=== PATIENT | female | born 1945 | race Caucasian/White ===

== ENCOUNTER 2024-11-27 05:15 | Outpatient (REF) | payer MEDICARE, SELFPAY ==
[2024-11-27 05:21] LABS: MANUAL DIFF FLAG NO
--- OUTSIDE RECORDS SUMMARY | 2024-11-27 05:21 | XMS_ITS ---
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 Name Role Phone [facility] Unavailable [phone] Christofer Torres MD Primary Care Provider [phone] Plan of Treatment Future Appointments Date Time Location Provi petr Post Op Visit/Follow Up 12/01/2024 9:40AM [facility] Sami Coon MD Last Documented On 5 7:59AM ; [facility] Assessments Includes: Assessments for all patient encounters No Assessments Recorded Medical Equipment - Implanted Devices Includes: Current and historical Devices No Medical Equipment Recorded Medications Administered Includes: Administered Medications in patient's chart No Administered Medications Recorded Results Includes: Results from 11/27/2023 through 11/27/2024 No Results Recorded For Specified Dates History of Present Illness History of Present Illness not supported for this document type No History of Present Illness Recorded Social History No Social History Recorded - Smoking Status Unknown Procedures and Surgical History Includes: Procedures from 11/27/2023 through 11/27/2024 Procedures Code Diagnosis Performing Provider Service Location Service Date Treat Thigh Fracture (Left) 15466 Fracture of unsp part of neck of left femur, init Smai Coon MD [facility] - Inpatient 11/17/2024 Last Documented On 5 12:44PM ; [facility] Medical History Includes: Medical History in patient's chart No Medical History Recorded Family History Includes: Family History in patient's chart No Family History Recorded Review of Systems Review of Systems not supported for this document type No Review of Systems Recorded Mental Status No Mental Status Recorded Functional Status No Functional Status Recorded Physical Exam Physical Exam not supported for this document type No Physical Exam Recorded Insurance Includes: Active Insurance Policies Plan Name Member ID Group # Subscriber Relationship Effect niall Dates 1 - [facility] [id number] Isabela Rios Self Clinical Notes Includes: Signed Clinical Notes starting from 10/08/2022 No Clinical Notes Recorded
--- OUTSIDE RECORDS SUMMARY | 2024-11-27 05:21 | XMS_ITS | Clinical Summary ---
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 Active multivitamin (MULTIPLE VITAMINS ORAL) Take by mouth. Active citalopram (CeleXA) 20 mg tablet Please take 1.5 tablet daily 135 tablet 1 4 Active acetaminophen (TYLENOL) 500 mg tablet Take 2 tablets (1,000 mg total) by mouth every 8 (eight) hours for 10 days. 5 12/04/19 25 Active levothyroxine (SYNTHROID, LEVOTHROID) 75 mcg tablet Take 1 tablet (75 mcg total) by mouth 1 (one) time each day. 5 Active melatonin 3 mg tablet Take 1 tablet (3 mg total) by mouth at bedtime. 5 Active senna-docusate (PERICOLACE) 8.6-50 mg per tablet Take 2 tablets by mouth at bedtime. 5 12/24/19 25 Active heparin sodium,porcine (heparin, UFH,) 5,000 unit/mL injectionIndication s:Prophylaxis of Venous Thromboembolism Inject 1 mL (5,000 Units total) under the skin every 12 (twelve) hours. 5 Active amLODIPine (NORVASC) 2.5 mg tablet TAKE 1 TABLET BY MOUTH DAILY 100 tablet 1 5 Active levothyroxine (SYNTHROID, LEVOTHROID) 50 mcg tablet TAKE 1 TABLET BY MOUTH DAILY 100 tablet 2 4 11/24/19 25 Discontinued diclofenac (VOLTAREN) 1 % topical gel Apply 1 g topically 3 (three) times a day for 10 days. 60 g 5 11/26/19 25 Discontinued(St op Taking at Discharge) amLODIPine (NORVASC) 2.5 mg tablet Take 1 tablet (2.5 mg total) by mouth 1 (one) time each day. 5 11/26/19 25 Discontinued oxyCODONE (ROXICODONE) 5 mg immediate release tablet Take 1 tablet (5 mg total) by mouth every 4 (four) hours if needed (moderate pain or when therapies for mild pain were not effective) for up to 1 day. Max Daily Amount: 30 mg 6 tablet 5 11/25/19 Active Problems Problem Noted Date Diagnosed Date Closed fracture of left hip 11/14/2024 Acute subdural hematoma 11/14/2024 Osteoporosis 10/11/2023 Hyperlipidemia 09/16/2017 Depression 07/06/2017 Osteopenia 07/06/2017 Anxiety 06/11/2017 HTN (hypertension) 06/11/2017 Hypothyroidism 06/11/2017 Encounters Date Type Department Care Team Description 11/24/2024 Telephone Neurosurgery [address] [place] [phone] Mariah Lucio [place] 11/17/2024 1:00 PM EST - 11/17/2024 3:[address] [facility] [address] [place] [phone] Sami Coon MD HEMIARTHROPLASTY LEFT HIP, CEMENTED, POSTERIOR APPROACH [[id number] (CPT??)] 11/17/2024 12:18 PM EST Anesthesia Event [facility] [address] [place] [phone] Dequan Kelsey DO Walsh, Michael, DO 11/14/2024 9:22 AM EST - 11/26/2024 7:07 PM EST Hospital Encounter [facility] [address] [place] [phone] Román Guzman MD Flores, Carlos M, MD Kim, Tae Hyong, DO Zipagan, James T, MD Japaridze, Anna, MD Bell, Alistair A, MD Subdural hematoma (CMS/HCC) (Primary Dx); Closed fracture of left hip, initial encounter (CMS/HCC); Syncope, unspecified syncope type; Hypoxia; Hip fracture requiring operative repair, left, closed, initial encounter (CMS/HCC) Discharge Disposition: [facility]dc Facility 11/10/2024 2:00 PM EST Office Visit Walk-In Clinic [facility] [address] [place] [phone] Edgar Esqueda PA Fall, initial encounter (Primary Dx) 09/03/2024 9:30 AM EST Office Visit [facility] [address] [place] [phone] Garcia Doran MD Primary hypertension (Primary Dx); Mixed hyperlipidemia; Acquired hypothyroidism; Major depressive disorder with single episode, in full remission (CMS/HCC); Anxiety; Osteopenia, unspecified location from Last 3 Months Immunizations Name Administration Dates Next Due Influenza Quadravalent, MDCK , 0.5ml, preservative free (Flucelvax) 6mo and older 11/11/2019,11/08/2018 Influenza Quadravalent, MDCK , 0.5ml, with preservative (Flucelvax) 6mo and older 09/12/2017 Influenza trivalent, 0.5mL ( Fluzone High-dose) 65yo and older 07/11/2023,08/05/2020 Influenza trivalent, with pr eservative (Fluzone; Afluria) 6mo and older 08/28/2016,09/04/2013,07/10/2012,10/03 Influenza, Unspecified 10/18/2021 Moderna SARS-CoV-2 COVID-19, mRNA, LNP-S, preservative free 11/22/2022,08/31/2022,09/16/2021,02/27 Pneumococcal conjugate 13 va lent (Prevnar 13, PCV13) 2mo and older 11/15/2020 Pneumococcal conjugate 20 va lent (Prevnar 20, PCV 20) 2mo and older 08/01/2023 Pneumococcal polysaccharide 23 valent (Pneumovax 23) 2yo and older 10/03/2011 Td Tetanus diptheria (Tdvax) 7yo and older 08/01/2023 Tdap Tetanus diptheria acell ular pertussis (Boostrix; Adacel) 7yo and older 02/05/2013 Surgical History Surgery Date Site/Laterality Comments WISDOM TOOTH EXTRACTION PROCEDURE: HISTORICAL WISDOM TEETH EXTRACTION Medical History Medical History Date Comments Hypothyroidism 06/11/2017 DX:Hypothyroidis m HTN (hypertension) 06/11/2017 DX:HTN (hyper tension) Anxiety 06/11/2017 DX:Anxiety Depression 07/06/2017 DX:Depression Osteopenia 07/06/2017 DX:Osteopenia HTN (hypertension) DX:HTN (hyper tension) HTN (hypertension) DX:HTN (hyper tension) Hypothyroidism DX:Hypothyroidis m Family History Medical History Relation Name Comments No Known Problems Aunt No Known Problems Brother Lymphoma Daughter 1 brianna No Known Problems Daughter 2 Hypertension Father No Known Problems Maternal Grandfather No Known Problems Maternal Grandmother Lung cancer Mother No Known Problems Other No Known Problems Paternal Grandfather No Known Problems Paternal Grandmother No Known Problems Sister No Known Problems Uncle Blindness Neg Hx Breast cancer Neg Hx Cataracts Neg Hx Glaucoma Neg Hx Macular degeneration Neg Hx Strabismus Neg Hx Relation Name Status Comments Aunt Brother Daughter 1 Alive Daughter 2 Alive Father Maternal Grandfather Maternal Grandmother Mother Other Paternal Grandfather Paternal Grandmother Sister Alive Uncle Social History Tobacco Use Types Packs/Day Years Used Date Smoking Tobacco: Former Cigarettes Smokeless Tobacco: Never Tobacco Cessation:Counseling Given: Not Answered Alcohol Use Standard Drinks/Week Comments Yes 5 (1 standard drink = 0.6 oz pur e alcohol) Housing Instability Answer Date Recorde d Are you worried that in the next 2 months you may not have stable housing? Unable to respond 11/14/2024 Food Access & Nutrition Answer Date Rec orded Do you have access to a vari ety of food including fruits and vegetables? Unable to respond 11/14/2024 Health Literacy Answer Date Recorded How often do you need to hav e someone help you when you read instructions, pamphlets, or other written material from your doctor or pharmacy? Unable to respond 11/14/2024 Caregiver: How often do you need to have someone help you when you read instructions, pamphlets, or other written material from your doctor or pharmacy? Not on file 025 Financial Risk Answer Date Recorded How hard is it for you to pa y for the very basics like food, housing, medical care, and air conditioning / heating? Unable to respond 11/14/2024 Transportation Answer Date Recorded Has the lack of transportati on kept you from meetings, work, or from getting things needed for daily living? Unable to respond 11/14/2024 Has the lack of transportati on kept you from medical appointments or from getting medications? Unable to respond 11/14/2024 Social Isolation Answer Date Recorded How often do you feel lonely or isolated from those around you? Unable to respond 11/14/2024 Food Risk Answer Date Recorded Within the past 12 months we worried whether our food would run out before we got money to buy more. Unable to respond 025 Within the past 12 months th e food we bought just didn't last and we didn't have money to get more. Unable to respond 10/29 Dependent Care Answer Date Recorded Do you need help finding or paying for care for your loved ones. For example, child welfare counselor or elderly care for an older adult? Unable to respond 11/14/2024 Education Answer Date Recorded Do you think completing more education or training, like finishing a GED, going to college, or learning a trade, would be helpful for you? Unable to respond 11/14/2024 Employment and Income Answer Date Recor ded During the last four weeks, have you been actively looking for work? Unable to respond 11/14/2024 Living Situation Answer Date Recorded What is your living situation? 0 11/14/2024 Interpersonal Safety Answer Date Record ed Physical Abuse 11/14/2024 Verbal Abuse 11/14/2024 Sex and Gender Information Value Date Recorded Sex Assigned at Not on file Gender Identity Not on file Sexual Orientation Not on file Job Start Date Occupation Industry Not on file Not on file Not on file Obstetrics History Last Filed Vital Signs Vital Sign Reading Time Taken Comments Blood Pressure 128/65 11/26/2024 2:09 PM EST Pulse 76 11/26/2024 2:09 PM EST Temperature 36.7 ??C (98.1 ??F) 11/26/2024 2:09 PM ES T Respiratory Rate 18 11/26/2024 2:09 PM EST Oxygen Saturation 98% 11/26/2024 2:09 PM EST Inhaled Oxygen Concentration - - Weight 65.8 kg (144 lb 15.9 oz) 025 10:10 AM EST Height 165.1 cm (5' 5 ) 11/18/2024 10:1 0 AM EST Body Mass Index 24.13 11/18/2024 10:10 AM EST Plan of Treatment Upcoming Encounters Date Type Department Care Team ([facility] st Contact Info) Description 12/05/2024 10:45 AM EST Appointment [facility] CT Scan [address] [place] [phone] 12/05/2024 11:15 AM EST Office Visit Neurosurgery [facility] [address] [place] [phone] Ashley Davis PA [address], [address] [place] [address] 03/06/2025 11:30 AM EDT Office Visit [facility]ary [facility] [address] [place] [address] Garcia Doran MD [address] [place] [address] Health Maintenance Due Date Last Done Comments Zoster Vaccines (1 of 2) 1997 RSV Immunization Patients 60+ Years Old (1 - 1-dose 75+ series) 2022 Medicare Annual Wellness Visit 10/25/2024 10/25/2023 Depression Screening 08/31/2025 08/31/2024, 10/25/20 23 Colorectal Cancer Screening: FIT-DNA (Cologuard) 11/07/2025 11/07/2022 Social Influencers of Health Screening 11/14/2025 11/14/2024 Falls Risk Assessment 11/26/2025 11/26/2024, 024 Hypertension/CHF/CAD Annual BMP Blood Test 11/26/2025 11/26/2024, 11/25/2024, 11/24/2024, Additional history exists Cholesterol Screening (Lipid Panel) 09/03/2029 09/03/2024, 02/28/2024, 02/28/2024 DTaP,Tdap,and Td Vaccines (3 - Td or Tdap) 08/01/2033 08/01/2023, 02/05/2013 Osteoporosis Screening (Bone Density Screening) 10/04/2033 10/04/2023 Hepatitis C Screening Completed 04/22/2018 Breast Cancer Screening Discontinued 04/10/20, 04/04/2022, 03/31/2021 Pneumococcal Vaccine: 65+ Years Completed 08/01/2023, 11/15/2020, 10/03/2011 COVID-19 Vaccine Completed 08/07/2024, , 11/22/2022, Additional history exists Influenza Vaccine Completed 08/07/2024, , 10/13/2022, Additional history exists HIB Vaccines Aged Out No longer eligi ble based on patient's age to complete this topic HPV Vaccines Aged Out No longer eligi ble based on patient's age to complete this topic Hepatitis A Vaccines Aged Out No long er eligible based on patient's age to complete this topic Hepatitis B Vaccines Aged Out No long er eligible based on patient's age to complete this topic IPV Vaccines Aged Out No longer eligi ble based on patient's age to complete this topic MMR Vaccines Aged Out No longer eligi ble based on patient's age to complete this topic Meningococcal ACWY Vaccine Aged Out N o longer eligible based on patient's age to complete this topic RSV Immunization Patients Under 20 months Aged Out No longer eligible based on patient's age to complete this topic Varicella Vaccines Aged Out No longer eligible based on patient's age to complete this topic Medical Devices Implanted Type Area Ehs Teacher Device Identifier Shelf Expiration Date Model / Serial / Lot Kit Prep Total Hip Bone Imp - Sna - [id number] Implanted:Qty: 1 on 11/17/2024 by Sami Coon MD at [facility] Bone Cement Left: Hip [employer] 06/24/2034 [id number] / NA / [id number] Cement Bone Surg Simplex Radiopq - Sna - [id number] Implanted:Qty: 1 on 11/17/2024 by Sami Coon MD at [facility] Bone Cement Left: Hip [employer] 12/26/2026 6191-1- 0 / NA / [id number] Cement Bone Surg Simplex Radiopq - Sna - [id number] Implanted:Qty: 1 on 11/17/2024 by Sami Coon MD at [facility] Bone Cement Left: Hip [employer] 12/26/2026 6191-1- 0 / NA / [id number] Hip Stem Fem C-Cmnt 132d 6x158 - Sna - [id number] Implanted:Qty: 1 on 11/17/2024 by Sami Coon MD at [facility] Joints Hip Left: Hip [employer] [id number] 09/30/2028 2516-2612 D / NA / [id number] Hip Spacr Distl Univ 9mm - Sna - [id number] Implanted:Qty: 1 on 11/17/2024 by Sami Coon MD at [facility] Joints Hip Left: Hip [employer] [id number] 07/07/2029 6958-0573 / NA / [id number] Hip Head Bipolar Uhr 60s04xo - Sna - [id number] Implanted:Qty: 1 on 11/17/2024 by Sami Coon MD at [facility] Joints Hip Left: Hip [employer] [id number] 03/11/2028 UH1-49-26 / NA / [id number] Hip Head Cocr L Fit 26mm/-3 - Sna - [id number] Implanted:Qty: 1 on 11/17/2024 by Sami Coon MD at [facility] Joints Hip Left: Hip [employer] [id number] 01/10/2028 6260-9-02 6 / NA / [id number] Procedures Procedure Name Priority Date/Time Associated Diagnosis Comments COMPLETE BLOOD COUNT Routine 11/26/2024 5:49 AM EST BASIC METABOLIC PANEL Routine 11/26/2024 5:49 AM EST COMPLETE BLOOD COUNT Routine 11/25/2024 6:59 AM EST BASIC METABOLIC PANEL Routine 11/25/2024 6:59 AM EST COMPLETE BLOOD COUNT Routine 11/24/2024 6:24 AM EST BASIC METABOLIC PANEL Routine 11/24/2024 6:24 AM EST COMPLETE BLOOD COUNT Routine 11/23/2024 6:25 AM EST BASIC METABOLIC PANEL Routine 11/23/2024 6:25 AM EST COMPLETE BLOOD COUNT Routine 11/22/2024 6:37 AM EST BASIC METABOLIC PANEL Routine 11/22/2024 6:[address] HEAD WO CONTRAST STAT 11/21/2024 8 :31 AM EST COMPLETE BLOOD COUNT Routine 11/21/2024 5:41 AM EST BASIC METABOLIC PANEL Routine 11/21/2024 5:41 AM EST COMPLETE BLOOD COUNT Routine 11/20/2024 6:09 AM EST BASIC METABOLIC PANEL Routine 11/20/2024 6:09 AM EST COMPLETE BLOOD COUNT Routine 11/19/2024 6:01 AM EST BASIC METABOLIC PANEL Routine 11/19/2024 6:01 AM EST MR BRAIN WO CONTRAST Routine 11/18/2024 7:[address] HEAD WO CONTRAST STAT 11/18/2024 2 :24 PM EST TRANSTHORACIC ECHOCARDIOGRAM (TTE) COMPLETE Routine 11/18/2024 10:49 AM EST Syncope, unspecified syncope type COMPLETE BLOOD COUNT Routine 11/18/2024 5:44 AM EST BASIC METABOLIC PANEL Routine 11/18/2024 5:44 AM EST XR PELVIS 1-2 VIEWS Routine 11/17/2024 4 :41 PM EST OXYGEN THERAPY, ADULT Routine 11/17/2024 2:52 PM EST XR HIP 1 VIEW LEFT Routine 11/17/2024 1: 34 PM EST TISSUE EXAM Routine 11/17/2024 1:17 PM EST Hip fracture requiring operative repair, left, closed, initial encounter ([facility]) TH AN ENDOTRACHEAL(NO CHARGE) Routine 11/17/2024 12:46 PM EST WA HEMIARTHROPLASTY HIP PARTIAL 11/17/2024 12:14 PM EST Hip fracture requiring operative repair, left, closed, initial encounter ([facility]) Case Notes c arm, implants, lateral position CBC WITH AUTO DIFFERENTIAL Routine 11/17/2024 6:43 AM EST BASIC METABOLIC PANEL Routine 11/17/2024 6:43 AM EST CBC AND DIFFERENTIAL Routine 11/17/2024 6:[address] ANGIO CHEST WO AND/OR W CONTRAST STAT 11/16/2024 10:13 AM EST Hypoxia RESPIRATORY VIRUS PANEL MOLECULAR STUDY Routine 11/16/2024 5:44 AM EST ARTERIAL BLOOD GAS STAT 11/16/2024 5: 42 AM EST XR CHEST 1 VIEW STAT 11/16/2024 4:[address] HEAD WO CONTRAST Routine 11/15/2024 8 :03 AM EST VITAMIN B12 Add-On 11/15/2024 6:27 AM EST CBC WITH AUTO DIFFERENTIAL Routine 11/15/2024 6:27 AM EST CBC AND DIFFERENTIAL Routine 11/15/2024 6:27 AM EST MAGNESIUM Routine 11/15/2024 6:27 AM EST BASIC METABOLIC PANEL Routine 11/15/2024 6:27 AM EST ACTIVATED PARTIAL THROMBOPLASTIN TIME Routine 11/14/2024 8:37 PM EST PROTHROMBIN TIME WITH INR Routine 11/14/2024 8:[address] HEAD WO CONTRAST STAT 11/14/2024 2 :27 PM EST ESTRADA URINE CULTURE TUBE STAT 11/14/2024 1:58 PM EST URINALYSIS WITH REFLEX MICROSCOPIC AND CULTURE STAT 11/14/2024 1:58 PM EST URINALYSIS WITH REFLEX MICROSCOPIC AND CULTURE STAT 11/14/2024 1:58 PM EST CULTURE URINE STAT 11/14/2024 1:[address] LOWER EXTREMITY WO CONTRAST LEFT STAT 11/14/2024 12:18 PM EST TROPONIN I HIGH SENSITIVITY STAT 11/14/2024 11:25 AM EST XR CHEST 1 VIEW STAT 11/14/2024 11:03 AM EST XR HIP 2-3 VIEWS LEFT STAT 11/14/2024 11:[address] HEAD WO CONTRAST STAT 11/14/2024 10:23 AM EST THYROID STIMULATING HORMONE Add-On 11/14/2024 9:58 AM EST CBC WITH AUTO DIFFERENTIAL STAT 11/14/2024 9:58 AM EST COMPREHENSIVE METABOLIC PANEL STAT 11/14/2024 9:58 AM EST TROPONIN I HIGH SENSITIVITY STAT 11/14/2024 9:58 AM EST CREATINE KINASE STAT 11/14/2024 9:58 AM EST CBC AND DIFFERENTIAL STAT 11/14/2024 9:58 AM EST ECG 12-LEAD Routine 11/14/2024 9:41 AM EST WA CRITICAL CARE EACH ADDITIONAL 30 MINUTES Routine 11/14/2024 9:21 AM EST WA CRITICAL CARE EACH ADDITIONAL 30 MINUTES Routine 11/14/2024 9:21 AM EST WA CRITICAL CARE EACH ADDITIONAL 30 MINUTES Routine 11/14/2024 9:21 AM EST TRIIODOTHYRONINE FREE Routine 09/03/2024 10:08 AM EST Acquired hypothyroidism FREE THYROXINE WITH REFLEX TO FREE TRIIODOTHYRONINE Routine 09/03/2024 10:08 AM EST Acquired hypothyroidism LIPID PANEL WITH REFLEX TO DIRECT LDL Routine 09/03/2024 10:08 AM EST Mixed hyperlipidemia COMPREHENSIVE METABOLIC PANEL Routine 09/03/2024 10:08 AM EST Primary hypertension THYROID STIMULATING HORMONE WITH REFLEX TO FREE T4 AND FREE T3 Routine 09/03/2024 10:08 AM EST Acquired hypothyroidism HM FALLS RISK ASSESSMENT Routine 02/28/2024 DEPRESSION SCREENING Routine 10/25/2023 DXA BONE DENSITY STUDY 1+ SITS AXIAL SKEL Routine 10/04/2023 4:00 PM EST Encounter for screening for osteoporosis SCREENING MAMMOGRAPHY BI 2-VIEW BREAST INC CAD Routine 04/10/2023 10:31 AM EDT Encounter for screening mammogram for malignant neoplasm of breast FIT-DNA Routine 11/07/2022 HEPATITIS C SCREENING Routine 04/22/2018 from Last 3 Months or Most Recently Relevant to Health Maintenance Results * (ABNORMAL) Complete blood count (11/26/2024 5:49 AM EST) Only the most recent of9 resultswithin the time period is included. WBC 8.6 4.8 - 10.8 K/mcL LAB HEMETOLOGY METHOD 11/26/2024 6:52 AM [facility] RBC 2.50(L) 3.80 - 4.80 M/mcL LAB HEMETOLOGY METHOD 11/26/2024 6:52 AM [facility] Hemoglobin 7.8(L) 11.5 - 16.0 g/dL LAB HEMETOLOGY METHOD 11/26/2024 6:52 AM [facility] Hematocrit 25.0(L) 35.0 - 47.0 % LAB HEMETOLOGY METHOD 11/26/2024 6:52 AM [facility] MCV 98.8(H) 79.0 - 98.0 FL LAB HEMETOLOGY METHOD 11/26/2024 6:52 AM [facility] MCH 30.8 27.0 - 32.0 pcg LAB HEMETOLOGY METHOD 11/26/2024 6:52 AM [facility] MCHC 31.2(L) 32.0 - 37.0 g/dL LAB HEMETOLOGY METHOD 11/26/2024 6:52 AM EST [facility] RDW 16.2(H) 11.0 - 15.0 % LAB HEMETOLOGY METHOD 11/26/2024 6:52 AM [facility] Platelets 478(H) 130 - 400 K/mcL LAB HEMETOLOGY METHOD 11/26/2024 6:52 AM EST [facility] MPV 9.2 7.0 - 11.0 FL LAB HEMETOLOGY METHOD 11/26/2024 6:52 AM EST [facility] NRBC 0.0 <1.0 % LAB HEMETOLOGY METHOD 11/26/2024 6:52 AM [facility] NRBC Absolute 0.00 <0.10 K/mcL LAB HEMETOLOGY METHOD 11/26/2024 6:52 AM [facility] Blood Venous blood specimen / Unknown Venipuncture / Unknown 11/26/2024 5:49 AM EST 11/26/2024 6:33 AM EST Jaz DANIELS LAB BLOOD ORDERABLES [facility] [address] [place] [address], * Basic metabolic panel (11/26/2024 5:49 AM EST) Only the most recent of11 resultswithin the time period is included. Sodium 138 133 - 145 mmol/L LAB CHEMISTRY METHOD 11/26/2024 7:10 AM EST [facility] Potassium 4.5 3.5 - 5.5 mmol/L LAB CHEMISTRY METHOD 11/26/2024 7:10 AM [facility] Chloride 105 96 - 110 mmol/L LAB CHEMISTRY METHOD 11/26/2024 7:10 AM EST [facility] CO2 29 21 - 32 mmol/L LAB CHEMISTRY METHOD 11/26/2024 7:10 AM [facility] Anion Gap 4 3 - 11 LAB CHEMISTRY METHOD 11/26/2024 7:10 AM [facility] Glucose 86 70 - 100 mg/dL LAB CHEMISTRY METHOD 11/26/2024 7:10 AM [facility] BUN 15 5 - 25 mg/dL LAB CHEMISTRY METHOD 11/26/2024 7:10 AM [facility] Creatinine 0.72 0.50 - 1.10 mg/dL LAB CHEMISTRY METHOD 11/26/2024 7:10 AM [facility] eGFR 86 >=60 mL/min/1. 73m2 LAB CHEMISTRY METHOD 11/26/2024 7:10 AM [facility] Comment:Calculation based on the??Chronic Kidney Disease Epidemiology Collaboration (CKD-EPI) equation refit??without adjustment for race. BUN/Creatinine Ratio 20.8 LAB CHEMISTRY METHOD 11/26/2024 7:10 AM [facility] Calcium 8.7 8.5 - 10.5 mg/dL LAB CHEMISTRY METHOD 11/26/2024 7:10 AM [facility] Blood Venous blood specimen / Unknown Venipuncture / Unknown 11/26/2024 5:49 AM EST 11/26/2024 6:33 AM EST Jaz DANIELS LAB BLOOD ORDERABLES [facility] [address] [place] [address], * CT Head wo Contrast (11/21/2024 8:31 AM EST) Only the most recent of5 resultswithin the time period is included. Anatomical Region Laterality Modality Head and Neck Computed Tomogra phy 11/21/2024 8:43 AM EST Impressions 11/21/2024 8:46 AM EST Stable right cerebral convexity subdural hematoma with unchanged mass effect. ??No new bleeding or progressive mass effect. -------- FINAL REPORT -------- Dictated By: JHONNY BARRERA Dictated Date: 11/21/2024 08:43 ET Assigned Physician: JHONNY BARRERA Reviewed and Electronically Signed By: JHONNY BARRERA Signed Date: 11/21/2024 08:46 ET Workstation ID: [id number] Transcribed By: Self Edit Transcribed Date: 11/21/2024 08:43 ET Narrative 11/21/2024 8:46 AM EST PROCEDURE: HEAD CT INDICATION: Subdural hemorrhage TECHNIQUE: CT of the head without intravenous contrast. Multiplanar reformats. The examination was performed utilizing dose reduction techniques. Total DLP 901 COMPARISON: ??11/18/2024 FINDINGS: ?? No change in mixed density right cerebral convexity subdural collection measuring up to 10 mm in maximal coronal dimension. ??Local mass effect upon the right cerebrum is unchanged. ??Slight right to left midline shift is unchanged. ??Small subdural blood layering along the falx is similar compared to prior. ??No new hemorrhage, territorial infarction, or progressive mass effect. Brain parenchyma is unchanged Ventricles are stable in size. ??No hydrocephalus. Extracranial structures are unchanged. Procedure Note Jhonny Barrera MD - 11/21/2024 PROCEDURE: HEAD CT INDICATION: Subdural hemorrhage TECHNIQUE: CT of the head without intravenous contrast. Multiplanarreformats. The examination was performed utilizing dose reductiontechniques. Total DLP 901 COMPARISON: 11/18/2024 FINDINGS: No change in mixed density right cerebral convexity subdural collectionmeasuring up to 10 mm in maximal coronal dimension. Local mass effectupon the right cerebrum is unchanged. Slight right to left midline shiftis unchanged. Small subdural blood layering along the falx is similarcompared to prior. No new hemorrhage, territorial infarction, orprogressive mass effect. Brain parenchyma is unchanged Ventricles are stable in size. No hydrocephalus. Extracranial structures are unchanged. IMPRESSION: Stable right cerebral convexity subdural hematoma with unchanged masseffect. No new bleeding or progressive mass effect. -------- FINAL REPORT -------- Dictated By: JHONNY BARRERA Dictated Date: 11/21/2024 08:43 ET Assigned Physician: JHONNY BARRERA Reviewed and Electronically Signed By: JHONNY BARRERA Signed Date: 11/21/2024 08:46 ET Workstation ID: [id number] Transcribed By: Self Edit Transcribed Date: 11/21/2024 08:43 ET Janey DANIELS IMG CT PROCEDURES * MR Brain wo Contrast (11/18/2024 7:01 PM EST) Anatomical Region Laterality Modality Head and Neck Magnetic Resonan ce 11/18/2024 7:57 PM EST Addenda Addendum by Estelle Jane MD on 11/18/2024 8:12 PM EST ADDENDUM: This report was discussed with Yolanda Barrera RN on Nov 18, 2024 20:12:00 EST. This document has been electronically signed by: Gloria Peña on 11/18/2024 20:12:27 Impressions 11/18/2024 7:57 PM EST 1. Right subdural hematoma with additional thin falcine subdural hematoma measuring 2 mm. 2. Mild right cerebral sulcal crowding without midline shift or herniation This document has been electronically signed by: Estelle Jane MD on 11/18/2024 19:57:56 Narrative 11/18/2024 7:57 PM EST MR Brain without gadolinium Comparison: None Findings: Right subdural hematoma measuring up to 10 mm in thickness. There is also thin subdural hematoma along the interhemispheric falx measuring 2 mm. Mild periventricular and subcortical T2 white matter hyperintensities likely chronic small-vessel ischemic changes. Mild crowding of the right cerebral sulci. No midline shift or downward herniation. No restricted diffusion. Vascular flow voids are intact. Orbital contents are unremarkable. Mild mucosal thickening in the sphenoid sinuses and ethmoid air cells. No focal bone lesion. Procedure Note Estelle Jane MD - 11/18/2024 MR Brain without gadolinium Comparison: None Findings: Right subdural hematoma measuring up to 10 mm in thickness. There isalso thin subdural hematoma along the interhemispheric falx measuring 2 mm. Mild periventricular and subcortical T2 white matter hyperintensities likely chronic small-vessel ischemic changes. Mild crowding of the right cerebral sulci. No midline shift or downward herniation. No restricted diffusion. Vascular flow voids are intact. Orbital contents are unremarkable. Mild mucosal thickening in the sphenoid sinuses and ethmoid air cells. No focal bone lesion. IMPRESSION: 1. Right subdural hematoma with additional thin falcine subduralhematoma measuring 2 mm. 2. Mild right cerebral sulcal crowding without midline shift orherniation This document has been electronically signed by: Estelle Jane MD on 11/18/2024 19:57:56 Saundra Bucio MD IMG MRI PROCEDURES * (ABNORMAL) TRANSTHORACIC ECHOCARDIOGRAM (TTE) COMPLETE (11/18/2024 10:49 AM EST) BSA 1.74 m2 CV PACS LV EDV (A2C) 63 mL CV PACS LV EDV (A4C) 64 mL CV PACS LV Diastolic Volume (BP) 64 46 - 106 mL CV PACS LV ESV (A2C) 17 mL CV PACS LV ESV (A4C) 19 mL CV PACS LV Systolic Volume (BP) 19 14 - 42 mL CV PACS IVSD 1.1(A) 0.6 - 0.9 cm CV PACS LVIDD 4.3 3.8 - 5.2 cm CV PACS LVIDS 2.8 2.2 - 3.5 cm CV PACS LVOT Diameter 2.0 cm CV PACS LVOT Mean Alex 0.7 m/s CV PACS LVOT Mean Grad 2 mmHg CV PACS LVOT Mean Grad 2 mmHg CV PACS LVOT Peak VTI 24.1 cm CV PACS LVOT Peak Alex 1.1 m/s CV PACS LVOT Peak Gradient 5 mmHg CV PACS LVPWD 1.1(A) 0.6 - 0.9 cm CV PACS MV E' Tissue Velocity Lateral 8 cm/s CV PACS MV E' Tissue Velocity Septal 7 cm/s CV PACS Ejection Fraction (A2C) 73 % CV PACS Ejection Fraction (A4C) 70 % CV PACS Ejection Fraction (BP) 71 % CV PACS LVOT Area 3.1 cm2 CV PACS LVOT Stroke Volume 76 mL CV PACS Left Atrium Minor Ketchum 5.3 cm CV PACS Left Atrium Major Ketchum 5.5 cm CV PACS LA Area Sys (A2C) 19 cm2 CV PACS LA Area Sys (A4C) 15 cm2 CV PACS LA Volume (BP) 41 mL CV PACS LA Size 3.6 cm CV PACS RA Area 13.0 cm2 CV PACS RA 2D Volume 27 mL CV PACS AV Mean Gradient 6 mmHg CV PACS AV Mean Gradient 6 mmHg CV PACS Ao VTI 39.1 cm CV PACS AV Peak Alex 1.8 m/s CV PACS AV Peak Gradient 13 mmHg CV PACS AV Area Continuity Equation 1.9 cm2 CV PACS AV Area Peak Velocity 2.0 cm2 CV PACS Aortic Arch 2.3 cm CV PACS Ascending Aorta 3.2 cm CV PACS Aortic Sinus Valsalva 3.7 cm CV PACS IVC Proximal 1.5 cm CV PACS MV Deceleration [place] 5.0 m/s2 CV PACS E Wave Deceleration Time 188 119 - 242 ms CV PACS MV PHT 55 ms CV PACS MV Peak A Alex 1.25 m/s CV PACS MV Peak E Alex 0.97 m/s CV PACS MV Mean Gradient 3 mmHg CV PACS MV VTI 29.3 cm CV PACS Mitral Valve Max Velocity 1.5 m/s CV PACS MV Peak Gradient 9 mmHg CV PACS MV Area PHT 4.0 cm2 CV PACS MV Area Continuity Equation 2.6 cm2 CV PACS PV Acceleration Time 130 ms CV PACS PV Mean Gradient 1 mmHg CV PACS PV VTI 16.8 cm CV PACS PV Peak Velocity 0.8 m/s CV PACS PV Peak Gradient 3 mmHg CV PACS RV Diastolic Basal Dimension 3.1 2.5 - 4.1 cm CV PACS RV S' 11 cm/s CV PACS TAPSE 20 mm CV PACS TR Peak Velocity 3.56 m/s CV PACS TR Peak Gradient 51 mmHg CV PACS LV ESV Index (A4C) 11 mL/m2 CV PACS LV EDV Index (A4C) 37 mL/m2 CV PACS E/E' Ratio Septal 14 CV PACS E/E' Ratio Averaged 13 CV PACS LVOT Stroke Index 44 mL/m2 CV PACS LA Dimension Index 2D 2.1 cm/m2 CV PACS Relative Wall Thickness ratio 0.51 CV PACS LVOT:AV VTI Index 0.62 CV PACS FS 35 % CV PACS LV Mass 2D 163 g CV PACS Ascending Aorta Index 1.85 cm/m2 CV PACS MV VTI:LVOT VTI ratio 1.2 CV PACS LVOT flow 220 mL/s CV PACS RA 2D Volume Index 16 mL/m2 CV PACS SHEY Index (VTI) 1.12 cm2/m2 CV PACS SHEY Index (Pk Alex) 1.16 cm2/m2 CV PACS LVIDD Index 2.49 cm/m2 CV PACS LVIDS Index 1.62 cm/m2 CV PACS AV Velocity Ratio 0.61 CV PACS E/A Ratio 0.8 CV PACS E/E' Ratio Lateral 12 CV PACS LV Systolic Volume Index (BP) 11 mL/m2 CV PACS LV Diastolic Volume Index (BP) 37 mL/m2 CV PACS LA Volume Index (BP) 24 mL/m2 CV PACS LV Mass Index 2D 94 g/m2 CV PACS LV EDV Index (A2C) 36 mL/m2 CV PACS LV ESV Index (A2C) 10 mL/m2 CV PACS Right Ventricular Peak Systolic Pressure 54 mmHg CV PACS Est. RA Pressure 3 mmHg CV PACS Anatomical Region Laterality Modality Ultrasound Narrative 11/18/2024 3:30 PM EST ?Left ventricle cavity size is normal. Left ventricle mild hypertrophy.No regional LV wall motion abnormalities noted.Left ventricular systolic function is in the normal range with an ejection fraction of 55-60%. ?Right ventricle cavity is normal. Right ventricular systolic function is normal. ?Tricuspid??Valve: Estimated RA pressure is 3 mmHg. The RVSP is estimated at 54 mmHg. ??There is very mild tricuspid insufficiency. ?There is trace to 1+ aortic valve insufficiency. ?No other significant valvular abnormalities. ?See other findings in the body of the study. ??No prior echo for comparison. Left Ventricle Left ventricle cavity size is normal. There is mild hypertrophy. Systolic function is normal with an ejection fraction of 60-65%. There are no regional LV wall motion abnormalities. There is no diastolic dysfunction. Right Ventricle Right ventricle cavity appears normal. Systolic function is normal. Left Atrium Left atrium cavity size is normal. Right Atrium Right atrium cavity is normal. IVC/SVC Inferior vena cava structure is normal. RA pressures is estimated to be 3 mmHg (IVC diameter <21 mm and decreases >50% during inspiration). Mitral Valve Mitral valve structure is normal. The leaflets are not thickened. There is no regurgitation or stenosis. Tricuspid Valve Tricuspid valve structure is normal. The leaflets exhibit normal excursion. There is mild regurgitation. There is no evidence of tricuspid valve stenosis. Estimated RA pressure is 3 mmHg. The RVSP is estimated at 54 mmHg. Aortic Valve The aortic valve is trileaflet. The leaflets are mildly thickened and exhibit normal excursion. There is mild regurgitation. There is no evidence of aortic valve stenosis. Pulmonic Valve The pulmonic valve was not well visualized. Visualized portions of the pulmonic valve appear normal. There is trace pulmonic valve regurgitation. There is no evidence of pulmonic valve stenosis. Ascending Aorta The aorta appears normal in size. Pericardium Pericardium appears normal. There is no pericardial effusion. Study Details Overall the study quality was technically difficult. Demarcus Villalobos MD CV ECHO PROCEDURES * XR Pelvis 1-2 Views (11/17/2024 4:41 PM EST) Anatomical Region Laterality Modality Body, Pelvis Radiographic Jalyn ging 11/17/2024 4:53 PM EST Impressions 11/17/2024 4:54 PM EST Impression: Postop left femoral endoprosthesis placement, with prosthesis appearing satisfactorily positioned. Telerad FRANCES ([id number]) -------- FINAL REPORT -------- Dictated By: Muna Roblero Dictated Date: 11/17/2024 16:53 ET Assigned Physician: Muna Roblero Reviewed and Electronically Signed By: Muna Roblero Signed Date: 11/17/2024 16:54 ET Workstation ID: [id number] Transcribed By: Self Edit Transcribed Date: 11/17/2024 16:53 ET Narrative 11/17/2024 4:54 PM EST History: Postop left hip surgery. Findings: Portable AP views of the pelvis to include both hips are submitted from the PACU at 4:25 PM. A left femoral endoprosthesis is demonstrated, intact and well-positioned in this single projection. Multiple air locules are seen within the soft tissues, consistent with the surgical procedure. Skin king are partially imaged laterally. The right hip is unremarkable in a single projection. Procedure Note Muna Roblero MD - 11/17/2024 History: Postop left hip surgery. Findings: Portable AP views of the pelvis to include both hips are submitted fromthe PACU at 4:25 PM. A left femoral endoprosthesis is demonstrated, intact and well-positionedin this single projection. Multiple air locules are seen within the soft tissues, consistent with thesurgical procedure. Skin king are partially imaged laterally. The right hip is unremarkable in a single projection. IMPRESSION: Impression: Postop left femoral endoprosthesis placement, with prosthesis appearingsatisfactorily positioned. Ganesh DANIELS ([id number]) -------- FINAL REPORT -------- Dictated By: Muna Roblero Dictated Date: 11/17/2024 16:53 ET Assigned Physician: Muna Roblero Reviewed and Electronically Signed By: Muna Roblero Signed Date: 11/17/2024 16:54 ET Workstation ID: [id number] Transcribed By: Self Edit Transcribed Date: 11/17/2024 16:53 ET Jaz DANILES IMG XR PROCEDURES * XR Hip 1 View Left (11/17/2024 1:34 PM EST) Anatomical Region Laterality Modality Lower Extremities, Hip Left Radiograp hic Imaging 11/18/2024 6:55 AM EST Impressions 11/18/2024 6:58 AM EST Intraoperative portable views of the left hip region during orthopedic surgery -------- FINAL REPORT -------- Dictated By: Yordy Garcia Dictated Date: 11/18/2024 06:55 ET Assigned Physician: Yordy Garcia Reviewed and Electronically Signed By: Yordy Garcia Signed Date: 11/18/2024 06:58 ET Workstation ID: [id number] Transcribed By: Self Edit Transcribed Date: 11/18/2024 06:55 ET Narrative 11/18/2024 6:58 AM EST EXAMINATION: Imaging assistance provided during a procedure CLINICAL INFORMATION: Pain. Prior proximal left femoral fracture COMPARISON: Preop frontal view 11/14/2024 TECHNIQUE: ORTHOPEDIC-Imaging assistance was provided during an orthopedic procedure. 2 images obtained portably in the operating room centered over the hip and proximal femur on the left FINDINGS: There has been resection of the proximal femur. Serrated femoral introducer component in place. Approximately 3 mm between the flange and the calcar. The femoral head is been resected. There are soft tissue surgical changes. Procedure Note Yordy Garcia MD - 11/18/2024 EXAMINATION: Imaging assistance provided during a procedure CLINICAL INFORMATION: Pain. Prior proximal left femoral fracture COMPARISON: Preop frontal view 11/14/2024 TECHNIQUE: ORTHOPEDIC-Imaging assistance was provided during an orthopedic procedure. 2 images obtained portably in the operating room centered over the hip andproximal femur on the left FINDINGS: There has been resection of the proximal femur. Serrated femoralintroducer component in place. Approximately 3 mm between the flange andthe calcar. The femoral head is been resected. There are soft tissuesurgical changes. IMPRESSION: Intraoperative portable views of the left hip region during orthopedicsurgery -------- FINAL REPORT -------- Dictated By: Yordy Garcia Dictated Date: 11/18/2024 06:55 ET Assigned Physician: Yordy Garcia Reviewed and Electronically Signed By: Yordy Garcia Signed Date: 11/18/2024 06:58 ET Workstation ID: [id number] Transcribed By: Self Edit Transcribed Date: 11/18/2024 06:55 ET Sami Coon MD IMG XR PROCEDURES * Tissue exam (11/17/2024 1:17 PM EST) Final Diagnosis Bone, left femoral head: -CONSISTENT WITH FRACTURE 11/19/2024 10:45 AM EST [facility] Gross Description A. Bone, left femoral head: Labeled left femo, bone . Received in blood tinged formalin is a 4.6 x 4.6 x 4.2 cm femoral head, with a jagged disrupted 1.5 cm in length segment of femoral neck. The articular surface is pink-white, smooth and glistening. The cut surfaces of the femoral head are pink-yellow and trabecular with some hemorrhage around the margin. A district sales representative section is submitted in one cassette following decalcification, one piece CHECO 11/19/2024 10:45 AM EST [facility] Disclaimer Unless otherwise specified, all tissue is 10% NB formalin fixed and paraffin embedded. 11/19/2024 10:45 AM EST [facility] Bone Specimen from bone / Unknown 11/17/2024 1:17 PM EST 11/17/2024 3:55 PM EST Sami Coon MD LAB PATHOLOGY ORD ERABLES [facility] [address] [place] [address], * TH AN ENDOTRACHEAL(NO CHARGE) (11/17/2024 12:46 PM EST) Narrative Dequan Kelsey DO - 11/17/2024 12:46 PM EST Dequan Kelsey DO ? 11/17/2024 12:47 PM General Information and Staff Patient location during procedure: OR Performed by: Dequan Kelsey DO Authorized by: Dequan Kelsey DO ?? Intubation Airway not difficult Urgency: elective Final Airway Details Successful airway: ETT Cuffed: yes Successful intubation technique: direct laryngoscopy Endotracheal tube insertion site: oral Blade: Patrick Blade size: #3 ETT size (mm): 7.0 Cormack-Lehane Classification: grade IIa - partial view of glottis Placement verified by: chest auscultation, capnometry and palpation of cuff Measured from: teeth ETT to teeth (cm): 21 Number of attempts at approach: 1Final airway type: endotracheal airway Indications and Patient Condition Indications for airway management: anesthesia Preoxygenated: yes Start Time: 11/17/2024 12:46 PMStop Time: 11/17/2024 12:46 PM Dequan Korobkov DO ANESTHESIA ORDERABLE S * (ABNORMAL) CBC auto differential (11/17/2024 6:43 AM EST) Only the most recent of3 resultswithin the time period is included. WBC 7.4 4.8 - 10.8 K/mcL LAB HEMETOLOGY METHOD 11/17/2024 7:26 AM [facility] RBC 3.40(L) 3.80 - 4.80 M/mcL LAB HEMETOLOGY METHOD 11/17/2024 7:26 AM [facility] Hemoglobin 10.6(L) 11.5 - 16.0 g/dL LAB HEMETOLOGY METHOD 11/17/2024 7:26 AM [facility] Hematocrit 32.3(L) 35.0 - 47.0 % LAB HEMETOLOGY METHOD 11/17/2024 7:26 AM [facility] MCV 94.2 79.0 - 98.0 FL LAB HEMETOLOGY METHOD 11/17/2024 7:26 AM [facility] MCH 30.9 27.0 - 32.0 pcg LAB HEMETOLOGY METHOD 11/17/2024 7:26 AM [facility] MCHC 32.8 32.0 - 37.0 g/dL LAB HEMETOLOGY METHOD 11/17/2024 7:26 AM [facility] RDW 15.3(H) 11.0 - 15.0 % LAB HEMETOLOGY METHOD 11/17/2024 7:26 AM [facility] Platelets 150 130 - 400 K/mcL LAB HEMETOLOGY METHOD 11/17/2024 7:26 AM [facility] MPV 10.6 7.0 - 11.0 FL LAB HEMETOLOGY METHOD 11/17/2024 7:26 AM [facility] NRBC 0.0 <1.0 % LAB HEMETOLOGY METHOD 11/17/2024 7:26 AM [facility] NRBC Absolute 0.00 <0.10 K/mcL LAB HEMETOLOGY METHOD 11/17/2024 7:26 AM [facility] Neutrophils Relative 73.8 % LAB HEMETOLOGY METHOD 11/17/2024 7:26 AM [facility] Lymphocytes Relative 11.4 % LAB HEMETOLOGY METHOD 11/17/2024 7:26 AM [facility] Monocytes Relative 9.7 % LAB HEMETOLOGY METHOD 11/17/2024 7:26 AM [facility] Eosinophils Relative 4.3 % LAB HEMETOLOGY METHOD 11/17/2024 7:26 AM [facility] Basophils Relative 0.3 % LAB HEMETOLOGY METHOD 11/17/2024 7:26 AM [facility] Immature Granulocytes Relative 0.5 % LAB HEMETOLOGY METHOD 11/17/2024 7:26 AM [facility] Neutrophils Absolute 5.48 1.50 - 7.00 K/mcL LAB HEMETOLOGY METHOD 11/17/2024 7:26 AM [facility] Lymphocytes Absolute 0.85(L) 1.00 - 5.00 K/mcL LAB HEMETOLOGY METHOD 11/17/2024 7:26 AM [facility] Monocytes Absolute 0.72 0.20 - 1.00 K/mcL LAB HEMETOLOGY METHOD 11/17/2024 7:26 AM [facility] Eosinophils Absolute 0.32 0.00 - 0.50 K/mcL LAB HEMETOLOGY METHOD 11/17/2024 7:26 AM [facility] Basophils Absolute 0.02 0.00 - 0.20 K/mcL LAB HEMETOLOGY METHOD 11/17/2024 7:26 AM [facility] Immature Granulocytes Absolute 0.04(H) 0.00 - 0.03 K/mcL LAB HEMETOLOGY METHOD 11/17/2024 7:26 AM EST [facility] Blood Venous blood specimen / Unknown Venipuncture / Unknown 11/17/2024 6:43 AM EST 11/17/2024 7:07 AM EST Bhavin Garcia MD LAB BLOOD ORDERABLES [facility] [address] [place] [address], [place] [phone] * CT Angio Chest wo and/or w Contrast (11/16/2024 10:13 AM EST) Anatomical Region Laterality Modality Body Computed Tomogra phy 11/16/2024 10:2 6 AM EST Impressions 11/16/2024 10:45 AM EST No evidence of PE. No evidence of aortic aneurysm or dissection. Small bilateral pleural effusions with bilateral lower lobe atelectasis. Dependent atelectasis bilateral upper lobe posterior segment. -------- FINAL REPORT -------- Dictated By: Alli De Anda Dictated Date: 11/16/2024 10:26 ET Assigned Physician: Alli De Anda Reviewed and Electronically Signed By: Alli De Anda Signed Date: 11/16/2024 10:45 ET Workstation ID: [id number] Transcribed By: Self Edit Transcribed Date: 11/16/2024 10:26 ET Narrative 11/16/2024 10:45 AM EST EXAMINATION: CTA chest with contrast. CLINICAL INDICATION: SOB. Hip fracture. Rule out PE. COMPARISON: Chest x-ray 11/16/2024. TECHNIQUE: 2.5 mm thin axial and reformatted 3 mm thin sagittal and coronal images of chest were obtained following IV 90 mL Isovue-370. Scanner: ParAccel 64 slice VCT Dose reduction technique: ASIR (Adaptive statistical iterative reconstruction) and/or AEC (automated exposure control)Dose: total exam DLP 375 mGy/cm. FINDINGS: Vascular: There is good opacification of pulmonary artery and its branches without any intraluminal filling defect or narrowing. The thoracic aorta is of normal caliber heart size is normal. No pericardial effusion seen. Nonvascular: There is bilateral small pleural effusions with bibasilar atelectasis. There is minimal dependent atelectasis bilateral upper lobe posterior segment. Rest of the lungs are clear of acute consolidation. Thyroid lobes are symmetrical and normal. The central tracheal and bronchial airways widely patent. No abnormal size mediastinal or hilar lymph nodes seen. The axilla and the chest wall is unremarkable. Procedure Note Alli De Anda MD - 11/16/2024 EXAMINATION: CTA chest with contrast. CLINICAL INDICATION: SOB. Hip fracture. Rule out PE. COMPARISON: Chest x-ray 11/16/2024. TECHNIQUE: 2.5 mm thin axial and reformatted 3 mm thin sagittal andcoronal images of chest were obtained following IV 90 mL Isovue-370.Scanner: ParAccel 64 slice VCT Dose reduction technique: ASIR (Adaptive statistical iterativereconstruction) and/or AEC (automated exposure control)Dose: total examDLP 375 mGy/cm. FINDINGS: Vascular: There is good opacification of pulmonary artery and its brancheswithout any intraluminal filling defect or narrowing. The thoracic aortais of normal caliber heart size is normal. No pericardial effusion seen. Nonvascular: There is bilateral small pleural effusions with bibasilaratelectasis. There is minimal dependent atelectasis bilateral upper lobeposterior segment. Rest of the lungs are clear of acute consolidation.Thyroid lobes are symmetrical and normal. The central tracheal andbronchial airways widely patent. No abnormal size mediastinal or hilarlymph nodes seen. The axilla and the chest wall is unremarkable. IMPRESSION: No evidence of PE. No evidence of aortic aneurysm or dissection. Small bilateral pleural effusions with bilateral lower lobe atelectasis.Dependent atelectasis bilateral upper lobe posterior segment. -------- FINAL REPORT -------- Dictated By: Alli De Anda Dictated Date: 11/16/2024 10:26 ET Assigned Physician: Alli De Anda Reviewed and Electronically Signed By: Alli De Anda Signed Date: 11/16/2024 10:45 ET Workstation ID: [id number] Transcribed By: Self Edit Transcribed Date: 11/16/2024 10:26 ET Rochelle DANIELS IM CT PROCEDURES * Respiratory virus panel molecular study (11/16/2024 5:44 AM EST) Adenovirus Detection by PCR Not Detected Not Detected LAB MICROBIOLOGY METHOD 11/16/2024 7:20 AM [facility] Influenza A PCR Not Detected Not Detected LAB MICROBIOLOGY METHOD 11/16/2024 7:20 AM [facility] Influenza B PCR Not Detected Not Detected LAB MICROBIOLOGY METHOD 11/16/2024 7:20 AM [facility] Coronavirus 229E Not Detected Not Detected LAB MICROBIOLOGY METHOD 11/16/2024 7:20 AM [facility] Coronavirus HKU1 Not Detected Not Detected LAB MICROBIOLOGY METHOD 11/16/2024 7:20 AM [facility] Coronavirus OC43 Not Detected Not Detected LAB MICROBIOLOGY METHOD 11/16/2024 7:20 AM [facility] Coronavirus NL63 Not Detected Not Detected LAB MICROBIOLOGY METHOD 11/16/2024 7:20 AM [facility] Parainfluenza Virus 1 Not Detected Not Detected LAB MICROBIOLOGY METHOD 11/16/2024 7:20 AM [facility] Parainfluenza Virus 2 Not Detected Not Detected LAB MICROBIOLOGY METHOD 11/16/2024 7:20 AM [facility] Parainfluenza Virus 3 Not Detected Not Detected LAB MICROBIOLOGY METHOD 11/16/2024 7:20 AM [facility] Parainfluenza Virus 4 Not Detected Not Detected LAB MICROBIOLOGY METHOD 11/16/2024 7:20 AM [facility] RSV PCR Not Detected Not Detected LAB MICROBIOLOGY METHOD 11/16/2024 7:20 AM [facility] Human Metapneumovirus A and B Not Detected Not Detected LAB MICROBIOLOGY METHOD 11/16/2024 7:20 AM [facility] Rhinovirus/Entero virus Not Detected Not Detected LAB MICROBIOLOGY METHOD 11/16/2024 7:20 AM EST [facility] Bordetella pertussis Not Detected Not Detected LAB MICROBIOLOGY METHOD 11/16/2024 7:20 AM [facility] Bordetella parapertussis Not Detected Not Detected LAB MICROBIOLOGY METHOD 11/16/2024 7:20 AM [facility] Mycoplasma pneumo by PCR Not Detected Not Detected LAB MICROBIOLOGY METHOD 11/16/2024 7:20 AM [facility] Chlamydia pneumoniae Not Detected Not Detected LAB MICROBIOLOGY METHOD 11/16/2024 7:20 AM [facility] SARS COV-2 Not Detected Not Detected LAB MICROBIOLOGY METHOD 11/16/2024 7:20 AM [facility] Swab Structure of right anterior naris / Unknown Non-blood Collection / Unknown 11/16/2024 5:44 AM EST 11/16/2024 6:27 AM EST [facility] - 11/16/2024 7:20 AM EST Testing was performed using the [employer] Respiratory Pathogen PCR Assay. All results must be correlated with the clinical findings. Results should not be used as the sole basis for diagnosis. False Negative results may occur from the presence of sequence variants in the region targeted by the assay or the presence of inhibitors. Results may be affected by concurrent antiviral/antimicrobial therapy or levels of organisms that are below the limit of detection. Rochelle DANIELS LAB MICROBIOLOGY - G ENERAL ORDERABLES [facility] [address] [place] [address], * (ABNORMAL) Arterial blood gas (11/16/2024 5:42 AM EST) pH, Arterial 7.47(H) 7.35 - 7.45 pH 11/16/2024 6:05 AM [facility] pCO2, Arterial 32(L) 35 - 45 mmHg 11/16/2024 6:05 AM [facility] pO2, Arterial 56(LL) 80 - 100 mmHg 11/16/2024 6:05 AM [facility] HCO3, Arterial 24.8 22.0 - 26.0 mmol/L 11/16/2024 6:05 AM [facility] O2 Sat, Arterial 89.9(L) 95.0 - 98.0 % 11/16/2024 6:05 AM [facility] Base Excess, Arterial 0.1 -2.0 - 2.0 mmol/L 11/16/2024 6:05 AM [facility] Al Test Pass Pass, Unresponsi ve, Line 11/16/2024 6:05 AM [facility] FIO2 21.00 11/16/2024 6:05 AM [facility] Blood Arterial blood specimen / Unknown Arterial Puncture / Unknown 11/16/2024 5:42 AM EST 11/16/2024 5:47 AM EST Rochelle DANIELS LAB BLOOD ORDERABLES [facility] [address] [place] [address], * XR Chest 1 View (11/16/2024 4:48 AM EST) Only the most recent of2 resultswithin the time period is included. Anatomical Region Laterality Modality Body Radiographic Jalyn ging 11/16/2024 7:09 AM EST Impressions 11/16/2024 7:11 AM EST Suspect pulmonary vascular congestion. -------- FINAL REPORT -------- Dictated By: Alli De Anda Dictated Date: 11/16/2024 07:09 ET Assigned Physician: Alli De Anda Reviewed and Electronically Signed By: Alli De Anda Signed Date: 11/16/2024 07:11 ET Workstation ID: [id number] Transcribed By: Self Edit Transcribed Date: 11/16/2024 07:09 ET Narrative 11/16/2024 7:11 AM EST EXAMINATION: Chest portal upright 0430 hours. CLINICAL INDICATION: Hypoxia. COMPARISON: Chest chest 11/14/2024. FINDINGS: The lungs are expanded and bandlike atelectasis left lower lobe. Rest of the lungs are expanded and clear. The heart size is borderline normal. Pulmonary vascularity is prominent, question mild congestion. There is no suspicion for pleural effusion. No gross bony abnormality. Procedure Note Alli De Anda MD - 11/16/2024 EXAMINATION: Chest portal upright 0430 hours. CLINICAL INDICATION: Hypoxia. COMPARISON: Chest chest 11/14/2024. FINDINGS: The lungs are expanded and bandlike atelectasis left lower lobe.Rest of the lungs are expanded and clear. The heart size is borderlinenormal. Pulmonary vascularity is prominent, question mild congestion.There is no suspicion for pleural effusion. No gross bony abnormality. IMPRESSION: Suspect pulmonary vascular congestion. -------- FINAL REPORT -------- Dictated By: Alli De Anda Dictated Date: 11/16/2024 07:09 ET Assigned Physician: Alli De Anda Reviewed and Electronically Signed By: Alli De Anda Signed Date: 11/16/2024 07:11 ET Workstation ID: [id number] Transcribed By: Self Edit Transcribed Date: 11/16/2024 07:09 ET Rochelle DANIELS IMG XR PROCEDURES * Magnesium (11/15/2024 6:27 AM EST) Magnesium 2.0 1.9 - 2.6 mg/dL LAB CHEMISTRY METHOD 11/15/2024 8:39 AM EST [facility] Blood Venous blood specimen / Unknown Venipuncture / Unknown 11/15/2024 6:27 AM EST 11/15/2024 7:04 AM EST Demarcus Villalobos MD LAB BLOOD ORDERABLES Performing Organization Address City/[facility]/ZIP Co de Phone Number [facility] [address] [place] [address], [place] [phone] * Vitamin B12 (11/15/2024 6:27 AM EST) Pathologist [facility] Vitamin B-12 265 250 - 900 pcg/mL LAB CHEMISTRY METHOD 11/15/2024 6:00 PM EST [facility] Blood Venous blood specimen / Unknown Venipuncture / Unknown 11/15/2024 6:27 AM EST 11/15/2024 7:04 AM EST Bhavin Garcia MD LAB BLOOD ORDERABLES Performing Organization Address [facility]/ZIP Co de Phone Number [facility] [address] [place] [address], [place] [phone] * Activated partial thromboplastin time (11/14/2024 8:37 PM EST) [facility] aPTT 32.2 24.1 - 39.3 sec LAB COAGULATION METHOD 11/14/2024 9:02 PM EST [facility] Blood Venous blood specimen / Unknown Venipuncture / Unknown 11/14/2024 8:37 PM EST 11/14/2024 8:49 PM EST Hardik DANIELS LAB BLOOD ORDERABLES Performing Organization Address [facility]/ZIP Co de Phone Number [facility] [address] [place] [address], [place] [phone] * Prothrombin time with INR (11/14/2024 8:37 PM EST) [facility] Protime 12.0 10.6 - 13.9 sec LAB COAGULATION METHOD 11/14/2024 9:02 PM EST [facility] INR 1.0 LAB COAGULATION METHOD 11/14/2024 9:02 PM EST [facility] Blood Venous blood specimen / Unknown Venipuncture / Unknown 11/14/2024 8:37 PM EST 11/14/2024 8:49 PM EST Hardik DANIELS LAB BLOOD ORDERABLES [facility] [address] [place] [address], [place] [phone] * (ABNORMAL) Urinalysis with reflex microscopic and culture (11/14/2024 1:58 PM EST) Pathologist [facility] Specific [place] Urine 1.021 1.003 - 1.030 LAB URINALYSIS - AUTOMATED METHOD 11/14/2024 2:32 PM [facility] pH, Urine 6.0 5.0 - 8.0 pH LAB URINALYSIS - AUTOMATED METHOD 11/14/2024 2:32 PM [facility] Leukocytes, Urine Small(A) Negative LAB URINALYSIS - AUTOMATED METHOD 11/14/2024 2:32 PM [facility] Nitrite, Urine Negative Negative LAB URINALYSIS - AUTOMATED METHOD 11/14/2024 2:32 PM [facility] Protein, Urine 30(A) <=Trace mg/dL LAB URINALYSIS - AUTOMATED METHOD 11/14/2024 2:32 PM [facility] Glucose, Urine Negative Negative mg/dL LAB URINALYSIS - AUTOMATED METHOD 11/14/2024 2:32 PM [facility] Ketones, Urine Trace(A) Negative mg/dL LAB URINALYSIS - AUTOMATED METHOD 11/14/2024 2:32 PM [facility] Urobilinogen , Urine 1.0 0.2 - 1.0 mg/dL LAB URINALYSIS - AUTOMATED METHOD 11/14/2024 2:32 PM [facility] Bilirubin, Urine Negative Negative LAB URINALYSIS - AUTOMATED METHOD 11/14/2024 2:32 PM [facility] Blood, Urine Moderate(A) Negative LAB URINALYSIS - AUTOMATED METHOD 11/14/2024 2:32 PM [facility] RBC, Urine 9.2(H) 0 - 4 /HPF LAB URINALYSIS - AUTOMATED METHOD 11/14/2024 2:32 PM [facility] WBC, Urine 28.1(H) 0 - 4 /HPF LAB URINALYSIS - AUTOMATED METHOD 11/14/2024 2:32 PM [facility] Squamous Epithelial, Urine 37 0 - 60 /LPF LAB URINALYSIS - AUTOMATED METHOD 11/14/2024 2:32 PM [facility] Bacteria, Urine Many(A) Negative /HPF LAB URINALYSIS - AUTOMATED METHOD 11/14/2024 2:32 PM [facility] Hyaline Casts, Urine 0.8 0 - 3 /LPF LAB URINALYSIS - AUTOMATED METHOD 11/14/2024 2:32 PM [facility] Urine Urinary bladder structure / Unknown Non-blood Collection / Unknown 11/14/2024 1:58 PM EST 11/14/2024 2:20 PM EST Aleida DANIELS LAB URINE ORDERABLES [facility] [address] [place] [address], * Estrada urine culture tube (11/14/2024 1:58 PM EST) Extra Tube Hold for add-ons. 11/14/2024 4:02 PM EST [facility] Comment:Auto resulted. Urine Urinary bladder structure / Unknown Non-blood Collection / Unknown 11/14/2024 1:58 PM EST 11/14/2024 2:20 PM EST Aleida DANIELS LAB URINE ORDERABLES [facility] [address] [place] [address], [place] [phone] * (ABNORMAL) Culture urine (11/14/2024 1:58 PM EST) Culture, Urine >100,000 CFU/mL Escherichia coli ESBL(A) CLINT 11/17/2024 11:51 AM EST [facility] Comment:THIS ORGANISM IS POS ITIVE FOR EXTENDED SPECTRUM BETA-LACTAMASE (ESBL). EXTENDED SPECTRUM BETA-LACTAMASE PRODUCING ORGANISMS DEMONSTRATE DECREASED ACTIVITY WITH PENICILLILNS, CEPHALOSPORINS AND AZTREONAM. Urine Urinary bladder structure / Unknown Non-blood Collection / Unknown 11/14/2024 1:58 PM EST 11/14/2024 2:32 PM EST Narrative Organism Antibiotic Method Susceptibility Escherichia coli ESBL Amoxicillin/Clavulanate CLINT 8 ug/ml: Susceptible Escherichia coli ESBL Ampicillin/Sulbactam CLINT >=32 ug/ml: Resistant Escherichia coli ESBL Piperacillin/Tazobactam CLINT <=4 ug/ml: Susceptible Escherichia coli ESBL Cefazolin (Urine) CLINT >=32 ug/ml: Resistant Escherichia coli ESBL Cefoxitin CLINT <=4 ug/ml: Susceptible Escherichia coli ESBL Ceftazidime CLINT >=32 ug/ml: Resistant Escherichia coli ESBL Ceftriaxone CLINT >=64 ug/ml: Resistant Escherichia coli ESBL Cefepime CLINT 4 ug/ml: Intermediate Escherichia coli ESBL Meropenem CLINT <=0.25 ug/ml: Susceptible Escherichia coli ESBL Amikacin CLINT 4 ug/ml: Susceptible Escherichia coli ESBL Gentamicin CLINT >=16 ug/ml: Resistant Escherichia coli ESBL Ciprofloxacin CLINT >=4 ug/ml: Resistant Escherichia coli ESBL Levofloxacin CLINT >=8 ug/ml: Resistant Escherichia coli ESBL Nitrofurantoin CLINT <=16 ug/ml: Susceptible Escherichia coli ESBL Trimethoprim/Sulfa methoxazol e CLINT <=20 ug/ml: Susceptible Aleida DANIELS LAB MICROBIOLOGY - G ENERAL ORDERABLES [facility] [address] [place] [address], * CT Lower Extremity wo Contrast Left (11/14/2024 12:18 PM EST) Anatomical Region Laterality Modality Lower Extremities Left Computed Tomog ana laura 11/14/2024 12:2 6 PM EST Impressions 11/14/2024 12:30 PM EST Impacted and angulated left femoral neck fracture -------- FINAL REPORT -------- Dictated By: JHONNY BARRERA Dictated Date: 11/14/2024 12:26 ET Assigned Physician: JHONNY BARRERA Reviewed and Electronically Signed By: JHONNY BARRERA Signed Date: 11/14/2024 12:30 ET Workstation ID: [id number] Transcribed By: Self Edit Transcribed Date: 11/14/2024 12:26 ET Narrative 11/14/2024 12:30 PM EST PROCEDURE: Left lower extremity CT INDICATION: Fracture, pain TECHNIQUE: CT of the left lower extremity without intravenous contrast. Multiplanar reformats. The examination was performed utilizing dose reduction techniques. Total DLP 468. ??3-D reformatted images were created on an independent workstation with direct supervision by the radiologist COMPARISON: ??Radiographs 11/14/2024 FINDINGS: ?? There is an acute, impacted, and angulated left femoral neck fracture with slight anterior displacement of the distal fracture fragment and apex anterior angulation. No additional fractures. Soft tissue swelling around the left hip with left hip effusion. Visualized intra-abdominal and pelvic structures are unremarkable. No mass or fluid collection. Procedure Note Jhonny Barrera MD - 11/14/2024 PROCEDURE: Left lower extremity CT INDICATION: Fracture, pain TECHNIQUE: CT of the left lower extremity without intravenous contrast.Multiplanar reformats. The examination was performed utilizing dosereduction techniques. Total DLP 468. 3-D reformatted images were createdon an independent workstation with direct supervision by the radiologist COMPARISON: Radiographs 11/14/2024 FINDINGS: There is an acute, impacted, and angulated left femoral neck fracture withslight anterior displacement of the distal fracture fragment and apexanterior angulation. No additional fractures. Soft tissue swelling around the left hip with left hip effusion. Visualized intra-abdominal and pelvic structures are unremarkable. No mass or fluid collection. IMPRESSION: Impacted and angulated left femoral neck fracture -------- FINAL REPORT -------- Dictated By: JHONNY BARRERA Dictated Date: 11/14/2024 12:26 ET Assigned Physician: JHONNY BARRERA Reviewed and Electronically Signed By: JHONNY BARRERA Signed Date: 11/14/2024 12:30 ET Workstation ID: [id number] Transcribed By: Self Edit Transcribed Date: 11/14/2024 12:26 ET Aleida DANIELS IMG CT PROCEDURES * Troponin I high sensitivity (11/14/2024 11:25 AM EST) Only the most recent of2 resultswithin the time period is included. High Sensitivity Troponin I 10 <=54 ng/L LAB CHEMISTRY METHOD 11/14/2024 12:49 PM EST [facility] Blood Venous blood specimen / Unknown Venipuncture / Unknown 11/14/2024 11:25 AM EST 11/14/2024 11:56 AM EST Narrative [facility] - 11/14/2024 12:49 PM EST High levels of biotin in samples may falsely decrease hsTroponin values. ??Use caution when interpreting hsTroponin results in patients taking biotin who exhibit renal impairment (eGFR <60) or in patients taking more than 20 mg/day of biotin. Aleida DANIELS LAB BLOOD ORDERABLES [facility] [address] [place] [address], * XR Hip 2-3 Views Left (11/14/2024 11:03 AM EST) Anatomical Region Laterality Modality Lower Extremities, Hip Left Radiograp hic Imaging 11/14/2024 11:0 5 AM EST Impressions 11/14/2024 11:08 AM EST Acute transcervical femoral neck fracture. -------- FINAL REPORT -------- Dictated By: Vinayak Austin Dictated Date: 11/14/2024 11:05 ET Assigned Physician: Vinayak Austin Reviewed and Electronically Signed By: Vinayak Austin Signed Date: 11/14/2024 11:08 ET Workstation ID: [id number] Transcribed By: Self Edit Transcribed Date: 11/14/2024 11:05 ET Narrative 11/14/2024 11:08 AM EST Multiple views of the left hip, 11/14/2024. HISTORY: trauma. COMPARISON: None. FINDINGS: Bones appear demineralized. ??There are mild degenerative changes of the lumbar spine, pubic symphysis, and hips. ??There is an acute transcervical femoral neck fracture. ??No significant displacement or angulation. Procedure Note Vinayak Austin MD - 11/14/2024 Multiple views of the left hip, 11/14/2024. HISTORY: trauma. COMPARISON: None. FINDINGS: Bones appear demineralized. There are mild degenerative changes of thelumbar spine, pubic symphysis, and hips. There is an acute transcervicalfemoral neck fracture. No significant displacement or angulation. IMPRESSION: Acute transcervical femoral neck fracture. -------- FINAL REPORT -------- Dictated By: Vinayak Austin Dictated Date: 11/14/2024 11:05 ET Assigned Physician: Vinayak Austin Reviewed and Electronically Signed By: Vinayak Austin Signed Date: 11/14/2024 11:08 ET Workstation ID: [id number] Transcribed By: Self Edit Transcribed Date: 11/14/2024 11:05 ET Aleida DANIELS IMG XR PROCEDURES * (ABNORMAL) Thyroid stimulating hormone (11/14/2024 9:58 AM EST) TSH 48.69(H) 0.40 - 4.00 mcIU/mL LAB CHEMISTRY METHOD 11/15/2024 6:35 AM EST [facility] Blood Venous blood specimen / Unknown Venipuncture / Unknown 11/14/2024 9:58 AM EST 11/14/2024 10:25 AM EST Demarcus Villalobos MD LAB BLOOD ORDERABLES [facility] [address] [place] [address], [place] [phone] * (ABNORMAL) Creatine kinase (11/14/2024 9:58 AM EST) [facility] Total CK 668(H) 22 - 269 unit/L LAB CHEMISTRY METHOD 11/14/2024 11:20 AM EST [facility] Blood Venous blood specimen / Unknown Venipuncture / Unknown 11/14/2024 9:58 AM EST 11/14/2024 10:25 AM EST Aleida DANIELS LAB BLOOD ORDERABLES Performing Organization Address [facility]/ZIP Co de Phone Number [facility] [address] [place] [address], [place] [phone] * (ABNORMAL) Comprehensive metabolic panel (11/14/2024 9:58 AM EST) Only the most recent of2 resultswithin the time period is included. [facility] Sodium 137 133 - 145 mmol/L LAB CHEMISTRY METHOD 11/14/2024 11:56 AM [facility] Potassium 3.6 3.5 - 5.5 mmol/L LAB CHEMISTRY METHOD 11/14/2024 11:56 AM [facility] Chloride 107 96 - 110 mmol/L LAB CHEMISTRY METHOD 11/14/2024 11:56 AM [facility] CO2 25 21 - 32 mmol/L LAB CHEMISTRY METHOD 11/14/2024 11:56 AM [facility] Anion Gap 5 3 - 11 LAB CHEMISTRY METHOD 11/14/2024 11:56 AM [facility] Glucose 130(H) 70 - 100 mg/dL LAB CHEMISTRY METHOD 11/14/2024 11:56 AM [facility] BUN 24 5 - 25 mg/dL LAB CHEMISTRY METHOD 11/14/2024 11:56 AM [facility] Creatinine 0.96 0.50 - 1.10 mg/dL LAB CHEMISTRY METHOD 11/14/2024 11:56 AM [facility] eGFR 61 >=60 mL/min/1. 73m2 LAB CHEMISTRY METHOD 11/14/2024 11:56 AM [facility] Comment:Calculation based on the??Chronic Kidney Disease Epidemiology Collaboration (CKD-EPI) equation refit??without adjustment for race. BUN/Creatinine Ratio 25.0 LAB CHEMISTRY METHOD 11/14/2024 11:56 AM [facility] Calcium 8.9 8.5 - 10.5 mg/dL LAB CHEMISTRY METHOD 11/14/2024 11:56 AM [facility] AST (SGOT) 52(H) 10 - 42 unit/L LAB CHEMISTRY METHOD 11/14/2024 11:56 AM [facility] Comment:Results verified by repeat testing ALT (SGPT) 40 10 - 60 unit/L LAB CHEMISTRY METHOD 11/14/2024 11:56 AM [facility] Comment:Results verified by repeat testing Alkaline Phosphatase 81 42 - 121 unit/L LAB CHEMISTRY METHOD 11/14/2024 11:56 AM [facility] Total Protein 6.8 6.0 - 8.0 g/dL LAB CHEMISTRY METHOD 11/14/2024 11:56 AM [facility] Albumin 3.9 3.2 - 5.0 g/dL LAB CHEMISTRY METHOD 11/14/2024 11:56 AM [facility] Total Bilirubin 1.0 0.0 - 1.4 mg/dL LAB CHEMISTRY METHOD 11/14/2024 11:56 AM [facility] Blood Venous blood specimen / Unknown Venipuncture / Unknown 11/14/2024 9:58 AM EST 11/14/2024 10:25 AM EST Aleida DANIELS LAB BLOOD ORDERABLES Performing Organization Address [facility] Co de Phone Number [facility] [address] [place] [address], * ECG 12 lead (11/14/2024 9:41 AM EST) Ventricular Rate ECG 80 BPM GEMUSE Atrial Rate 80 BPM GEMUSE P-R Interval 126 ms GEMUSE QRS Duration 80 ms GEMUSE Q-T Interval 430 ms GEMUSE QTc 495 ms GEMUSE R [place] 31 degrees GEMUSE T [place] -53 degrees GEMUSE ECG Interpretation Normal sinus rhythm Nonspecific T wave abnormality Abnormal ECG No previous ECGs available Confirmed by HELADIO SIMMONS ([id number]) on 11/14/2024 5:33:44 PM GEMUSE 11/14/2024 9:41 AM EST 11/14/2024 5:33 PM EST Román Guzman MD ECG ORDERABLES Performing Organization Address [facility] Co de Phone Number GEMUSE * [place] CRITICAL CARE EACH ADDITIONAL 30 MINUTES, [place] CRITICAL CARE EACH ADDITIONAL 30 MINUTES, [place] CRITICAL CARE EACH ADDITIONAL 30 MINUTES (11/14/2024 9:21 AM EST) Narrative Román Guzman MD - 11/14/2024 9:21 AM EST FRANCES George ? 11/14/2024 12:05 PM Critical Care Performed by: FRANCES George Authorized by: Román Guzman MD ?? Critical care provider statement: ??Critical care time (minutes): ??90 ??Critical care time was exclusive of: ??Separately billable procedures and treating other patients ??Critical care was necessary to treat or prevent imminent or life-threatening deterioration of the following conditions: ??Trauma ??Critical care was time spent personally by me on the following activities: ??Discussions with consultants, evaluation of patient's response to treatment, examination of patient, obtaining history from patient or surrogate, ordering and performing treatments and interventions, ordering and review of laboratory studies, ordering and review of radiographic studies, re-evaluation of patient's condition and review of old charts ??I assumed direction of critical care for this patient from another provider in my specialty: yes ?Care discussed with: admitting provider ?? Román Guzman MD IN CLINIC/BEDSIDE O RDERABLES * (ABNORMAL) Thyroid stimulating hormone with reflex to free t4 and free t3 (09/03/2024 10:08 AM EST) TSH 11.73(H) 0.40 - 4.00 mcIU/mL LAB CHEMISTRY METHOD 09/03/2024 4:51 PM EST [facility] Blood Venous blood specimen / Unknown Venipuncture / Unknown 09/03/2024 10:08 AM EST 09/03/2024 10:08 AM EST Garcia Doran MD LAB BLOOD ORDERABLES Performing Organization Address City/[facility]/ZIP Co de Phone Number [facility] [address] [place] [address], * Free thyroxine with reflex to free triiodothyronine (09/03/2024 10:08 AM EST) [facility] Free T4 1.12 0.70 - 1.80 ng/dL LAB CHEMISTRY METHOD 09/03/2024 5:17 PM EST [facility] Blood Venous blood specimen / Unknown Venipuncture / Unknown 09/03/2024 10:08 AM EST 09/03/2024 10:08 AM EST Garcia Doran MD LAB BLOOD ORDERABLES [facility] [address] [place] [address], * (ABNORMAL) Lipid panel with reflex to direct LDL (09/03/2024 10:08 AM EST) Cholesterol 257(H) 0 - 200 mg/dL LAB CHEMISTRY METHOD 09/03/2024 4:57 PM [facility] Triglycerides 94 0 - 150 mg/dL LAB CHEMISTRY METHOD 09/03/2024 4:57 PM [facility] HDL 90 >=40 mg/dL LAB CHEMISTRY METHOD 09/03/2024 4:57 PM [facility] LDL Calculated 148(H) 0 - 100 mg/dL LAB CHEMISTRY METHOD 09/03/2024 4:57 PM [facility] VLDL Cholesterol Anderson 18.8 mg/dL LAB CHEMISTRY METHOD 09/03/2024 4:57 PM [facility] Non HDL Chol. (LDL+VLDL) 167(H) <145 mg/dL LAB CHEMISTRY METHOD 09/03/2024 4:57 PM [facility] Chol/HDL Ratio 2.9 0.0 - 4.4 LAB CHEMISTRY METHOD 09/03/2024 4:57 PM [facility] Blood Venous blood specimen / Unknown Venipuncture / Unknown 09/03/2024 10:08 AM EST 09/03/2024 10:08 AM EST Garcia Doran MD LAB BLOOD ORDERABLES [facility] [address] [place] [address], * (ABNORMAL) Triiodothyronine free (09/03/2024 10:08 AM EST) T3, Free 205(L) 230 - 420 pcg/dL LAB CHEMISTRY METHOD 09/03/2024 5:42 PM [facility] Blood Venous blood specimen / Unknown Venipuncture / Unknown 09/03/2024 10:08 AM EST 09/03/2024 10:08 AM EST Garcia Doran MD LAB BLOOD ORDERABLES [facility] [address] [place] [address], * Falls Risk Assessment (02/28/2024) Falls Risk Assessment ABSTRACTED Historical Provider MD PEDRO LUIS HENRIQUEZ E * Depression Screening (10/25/2023) Depression Screening ABSTRACTED Historical Provider MD PEDRO LUIS HENRIQUEZ E * DXA BONE DENSITY STUDY 1+ SITS AXIAL SKEL (10/04/2023 4:00 PM EST) Anatomical Region Laterality Modality Bone Densitometr y 12/28/2022 9:43 AM EST Narrative 10/04/2023 9:07 PM EST STUDY: ??DUAL ENERGY X-RAY ABSORPTIOMETRY / DXA REASON FOR EXAM: ?? Female, 78 years old ??menopausal/postmenopausal disorder TECHNIQUE: ?? Bone Mineral Density (BMD) measurements of the lumbar spine and left hip were obtained using [employer] W (S/N [id number]). ?? COMPARISON: None ?? FINDINGS: L1-L3-L4 BMD: 0.775 g/cm2 L1-L3-L4 T score: -2.5. ??This corresponds to osteoporosis. Left femoral neck BMD: 0.538 g/cm2 Left femoral neck T score: -2.8. ??This corresponds to osteoporosis. Left total hip BMD: 0.644 g/cm2 Left total hip T score: -2.4. ??This corresponds to osteopenia. IMPRESSION: IMPRESSION: Osteoporosis Reference Information: The T-score is the number of standard deviations above or below the standard which is normal for young adults at their peak bone mineral density. The World Health Organization (WHO) interprets the T-scores as follows: At or above ??-1 SD ?Normal bone density Between -1 and -2.5 SD ??Osteopenia At or below -2.5 SD ?Osteoporosis Procedure Note Haseeb Rosenberg MD - 12/03/2023 STUDY: DUAL ENERGY X-RAY ABSORPTIOMETRY / DXA REASON FOR EXAM: Female, 78 years old menopausal/postmenopausaldisorder TECHNIQUE: Bone Mineral Density (BMD) measurements of the lumbar spineand left hip were obtained using [employer] W (S/N [id number]). COMPARISON: None FINDINGS: L1-L3-L4 BMD: 0.775 g/cm2 L1-L3-L4 T score: -2.5. This corresponds to osteoporosis. Left femoral neck BMD: 0.538 g/cm2 Left femoral neck T score: -2.8. This corresponds to osteoporosis. Left total hip BMD: 0.644 g/cm2 Left total hip T score: -2.4. This corresponds to osteopenia. IMPRESSION: IMPRESSION: Osteoporosis Reference Information: The T-score is the number of standard deviations above or below thestandard which is normal for young adults at their peak bone mineral density. The World HealthOrganization (WHO) interprets the T-scores as follows: At or above -1 SD Normal bone density Between -1 and -2.5 SD Osteopenia At or below -2.5 SD Osteoporosis Garcia Doran MD IMG DXA PROCEDURES * SCREENING MAMMOGRAPHY BI 2-VIEW BREAST INC CAD (04/10/2023 10:31 AM EDT) Anatomical Region Laterality Modality Radiographic Jalyn ging 04/04/2022 10:0 7 AM EDT Narrative 04/10/2023 1:05 PM EDT This is a summary report. The complete report is available in the patient's medical record. If you cannot access the medical record, please contact the sending organization for a detailed fax or copy. Full field digital screening tomosynthesis mammography, reviewed with CAD and compared to previous mammograms dating back to 04/01/2019 with most recent of 04/04/2022. The breasts are composed of fatty and fibroglandular tissue. ??No suspicious mass, architectural distortion or suspicious calcifications are identified. IMPRESSION: : No mammographic evidence of malignancy. BIRADS 1-Negative; N. 5 year breast cancer risk assessment 2.0 % Lifetime breast cancer risk assessment 4.0 % Breast cancer risk category Low (<15%) Procedure Note Oly Dotson MD - 12/03/2023 This is a summary report. The complete report is available in thepatient's medical record. If you cannot access the medical record, pleasecontact the sending organization for a detailed fax or copy. Full field digital screening tomosynthesis mammography, reviewed with CADand compared to previous mammograms dating back to 04/01/2019 with mostrecent of 04/04/2022. The breasts are composed of fatty and fibroglandulartissue. No suspicious mass, architectural distortion or suspiciouscalcifications are identified. IMPRESSION: : No mammographic evidence of malignancy. BIRADS 1-Negative; N. 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 11/14/2024 11/14/2024 Advance Directives Documents on File Type Date Recorded Patient Neurology Nurse Expl anation Advance Directives and Living Will 11/17/2024 3:28 PM PROXY Advance Directives and Living Will 11/17/2024 12:33 PM Tucker Rios Health Care Proxy Advance Directives and Living Will 11/17/2024 12:20 PM Health Care Proxy * Full Code - Default (Latest Code Status on File) Date Activated Date Inactivated Comments 11/14/2024 3:14 PM 11/26/2024 9:14 PM This is orde r is used when code status has not been discussed with the patient, or code status is otherwise unknown/unconfirmed To update the patient's code status, place a code status order. Do not modify or discontinue any currently active code status orders. * Full Code - Default Date Activated Date Inactivated Comments 11/14/2024 12:56 PM 11/14/2024 3:14 PM This is ord er is used when code status has not been discussed with the patient, or code status is otherwise unknown/unconfirmed To update the patient's code status, place a code status order. Do not modify or discontinue any currently active code status orders. Care Teams Shoe Repair Supervisor Relationship Specialty Start Date End Date Garcia Doran MD [address] [facility] [place] [id number] PCP - General Internal Medicine 01/11/22
--- OUTSIDE RECORDS SUMMARY | 2024-11-27 05:21 | XMS_ITS | Encounter Summary ---
[facility] Organization [facility] Address [address] [place] [address] Care Team Providers Care Jira Developer Name Role Phone Garcia Doran MD Primary Care Provider [phone] Reason for Visit * Reason Comments Fall Fall backwards from a standing position. Pain in legs bilateral, L shoulder. Onset Sunday 15:00(approx). Encounter Details Date Type Department Care Team (Late st Contact Info) Description 11/10/2024 2:00 PM EST Office Visit [facility] [place] [address] [place] [phone] Edgar Esqueda PA [address] [place] [phone] Fall, initial encounter (Primary Dx) Social History Tobacco Use Types Packs/Day Years Used Date Smoking Tobacco: Former Cigarettes Smokeless Tobacco: Never Alcohol Use Standard Drinks/Week Comments Yes 5 (1 standard drink = 0.6 oz pur e alcohol) Health Literacy Answer Date Recorded How often do you need to hav e someone help you when you read instructions, pamphlets, or other written material from your doctor or pharmacy? Rarely 08/31/2024 Caregiver: How often do you need to have someone help you when you read instructions, pamphlets, or other written material from your doctor or pharmacy? Not on file 08/31/2024 Financial Risk Answer Date Recorded How hard is it for you to pa y for the very basics like food, housing, medical care, and air conditioning / heating? Patient declined 08/31/2024 Transportation Answer Date Recorded Has the lack of transportati on kept you from meetings, work, or from getting things needed for daily living? Unable to respond 08/31/2024 Has the lack of transportati on kept you from medical appointments or from getting medications? Unable to respond 08/31/2024 Social Isolation Answer Date Recorded How often do you feel lonely or isolated from th ose around you? Rarely 08/31/2024 Food Risk Answer Date Recorded Within the past 12 months we worried whether our food would run out before we got money to buy more. Never true 08/31/2024 Within the past 12 months th e food we bought just didn't last and we didn't have money to get more. Never true 08/31/2024 Dependent Care Answer Date Recorded Do you need help finding or paying for care for your loved ones. For example, child life specialist or elderly care for an older adult? Patient declined 08/31/2024 Education Answer Date Recorded Do you think completing more education or training, like finishing a GED, going to college, or learning a trade, would be helpful for you? No 08/31/2024 Employment and Income Answer Date Recor ded During the last four weeks, have you been actively looking for work? No 08/31/2024 Sex and Gender Information Value Date Recorded Sex Assigned at Not on file Gender Identity Not on file Sexual Orientation Not on file Job Start Date Occupation Industry Not on file Not on file Not on file documented as of this encounter Last Filed Vital Signs Vital Sign Reading Time Taken Comments Blood Pressure 137/79 11/10/2024 1:52 PM EST Pulse 76 11/10/2024 1:52 PM EST Temperature - - Respiratory Rate - - Oxygen Saturation 98% 11/10/2024 1:52 PM EST Inhaled Oxygen Concentration - - Weight - - Height - - Body Mass Index - - documented in this encounter Ordered Prescriptions Prescription Sig Dispensed Refills Start Date End Da te diclofenac (VOLTAREN) 1 % topical gel Apply 1 g topically 3 (three) times a day for 10 days. 60 g 11/10/2024 11/26/2024 documented in this encounter Progress Notes * FRANCES Llanes - 11/10/2024 2:00 PM EST CHIEF COMPLAINT: Chief Complaint Patient presents with Fall Fall backwards from a standing position. Pain in legs bilateral, L shoulder. Onset Sunday 15:00(approx). HPI: Isabela Rios is a 79 y.o. old female presenting after trip and fall while attempting to stand up from a chair. She states that she has pain in the back of the left shoulder into the back of both legs which started as gradual onset the day after the fall. Denies numbness, tingling, paresthesias, orweakness of the arms or legs. No head or neck injury. No swelling of the arms or legs. Ice has beenhelpful. ROS: Remainder of the 12 point review of symptoms unremarkable except for those idenitified in the HPI. PAST MEDICAL HISTORY: Patient Active Problem List Diagnosis Date Noted Osteoporosis 10/11/2023 Hyperlipidemia 09/16/2017 Depression 07/06/2017 Osteopenia 07/06/2017 Anxiety 06/11/2017 HTN (hypertension) 06/11/2017 Hypothyroidism 06/11/2017 Past Surgical History: Procedure Laterality Date WISDOM TOOTH EXTRACTION PROCEDURE: HISTORICAL WISDOM TEETH EXTRACTION SOCIAL HISTORY: Social History Tobacco Use Smoking status: Former Current packs/day: 0.30 Types: Cigarettes Smokeless tobacco: Never Substance Use Topics Alcohol use: Yes Alcohol/week: 5.0 standard drinks of alcohol FAMILY HISTORY: Family History Problem Relation Name Age of Onset Hypertension Father Lung cancer Mother Lymphoma Daughter brianna No Known Problems Daughter No Known Problems Brother No Known Problems Sister No Known Problems Maternal Grandmother No Known Problems Maternal Grandfather No Known Problems Paternal Grandmother No Known Problems Paternal Grandfather No Known Problems Aunt No Known Problems Uncle No Known Problems Other Blindness Neg Hx Cataracts Neg Hx Glaucoma Neg Hx Macular degeneration Neg Hx Strabismus Neg Hx Breast cancer Neg Hx Family Status Relation Name Status Father Mother Daughter Alive Daughter Alive Brother (Not Specified) Sister Alive MGM (Not Specified) MGF (Not Specified) PGM (Not Specified) PGF (Not Specified) Aunt (Not Specified) Uncle (Not Specified) Other (Not Specified) Neg Hx (Not Specified) No partnership data on file MEDICATIONS DISCONTINUED/REORDERED: There are no discontinued medications. ACTIVE MEDICATIONS: No outpatient medications have been marked as taking for the 11/10/24 encounter (Office Visit) with FRANCES Llanes. ALLERGIES: No Known Allergies PHYSICAL EXAM: Vitals: 11/10/24 1352 BP: 137/79 Pulse: 76 SpO2: 98% CONSTITUTIONAL: alert, calm, cooperative, in no acute distress HEAD: normocephalic, atraumatic EYES: extraocular movement intact (EOMI), sclera non-icteric EARS: no hearing deficit noted NECK/THYROID: neck range of motion grossly intact SKIN: warm and dry LUNGS: respirations regular rate and depth without acute distress EXTREMITIES: no clubbing, cyanosis, or edema of the upper or lower extremities. No superficial dilated veins, tenderness, pitting, or edema, or erythema, or warmth of the calves. No shoulder tenderness, no shoulder rigidity or loss of range of motion, no pain on rotation of shoulders, no shoulder tenderness bilaterally. Moving upper and lower extremities equally and spontaneously. Gait within normal limits. No knee or hip or lumbar spine tenderness. NEUROLOGIC: alert and oriented, no tremor, cranial nerves II-XII grossly intact PSYCH: mood/affect full range, speech clear, good eye contact, cooperative with exam LABS/IMAGING: None Lab Results Component Value Date EGFR 54 (L) 09/03/2024 IMPRESSION: 1. Fall, initial encounter PLAN: The patient's PMH, problem list and medications were reviewed in reference to the above diagnosis/diagnoses. Based on ROS, HPI, and PE, suggestive of generalized pain after fall. Neurovascular status and tendon structures of the upper and lower extremities are grossly intact with no tenderness, ecchymotic changes, rashes, ulcers, range of motion loss, or laxity of the upper and lower extremities. Calf pain is with no signs concerning for DVT. She is hemodynamically stable in no acute distress. Educated patient to rest, ice/heat, gentle stretching, gentle massage. OTC Tylenol 500 mg tab-take 2 tablets 2 times daily as needed for pain. Initiate diclofenac gel 3 times daily for 10 days. The risks and benefits of this medication were discussed with the patient. The patient understands the potential side effects and basic interactions of this medication. The patient is asked to call me or my colleagues if they begin to experience any difficulties with this medication. Advised to follow up with PCP in 10 days if symptoms do not improve. Advised to follow up with UC or PCP immediately for new or worsening symptoms. Educated on red flags symptoms. Advised to go to the ER or call 911 for these symptoms. Patient understands the plan. Patient verbalizes agreement with the plan. No orders of the defined types were placed in this encounter. Other orders diclofenac (VOLTAREN) 1 % topical gel; Apply 1 g topically 3 (three) times a day for 10 days. FRANCES Llanes on 11/10/2024 at 2:28 PM EST Today's documentation was made using voice recognition software. This note may contain grammatical errors secondary to this software. documented in this encounter Plan of Treatment Upcoming Encounters Date Type Department Care Team (Late st Contact Info) Description 12/05/2024 10:45 AM EST Appointment [facility] Scan [address] [place] [address] 12/05/2024 11:15 AM EST Office Visit Neuro[facility] [address] [phone] Ashley Davis PA 175 [facility], [address] [address] 03/06/2025 11:30 AM EDT Office Visit [facility] [employer] [facility] [address] [place] [address] Garcia Doran MD [address] [place] [address] documented as of this encounter Visit Diagnoses Diagnosis Fall, initial encounter- Primary documented in this encounter Additional Health Concerns Assessment Noted Time PHQ-9 Depression Total Score: 5 08/31/20 24 9:42 AM EST documented as of this encounter Care Teams Jira Developer Relationship Specialty Start Date End Date Garcia oDran MD [address] [place] [id number] PCP - General Internal Medicine 01/11/22 documented as of this encounter
--- OUTSIDE RECORDS SUMMARY | 2024-11-27 05:22 | XMS_ITS | Encounter Summary ---
Author Organization [facility] Address [address] [place] [address] Care Team Providers Care Spooler Operator Name Role Phone Garcia Doran MD Primary Care Provider [phone] Encounter Details Date Type Department Care Team (Late st Contact Info) Description 11/24/2024 Telephone Neurosurgery [facility] [address] [facility] [address] [place] [address] Mariah Lucio MA Social History Tobacco Use Types Packs/Day Years [...] for your loved ones. For example, child nutrition manager or elderly care for an older adult? [...] on file documented as of this encounter Functional Status Functional Status Response Date of Assess ment Are you deaf or do you have serious difficulty h earing? No 11/14/2024 Are you blind or do you have serious difficulty seeing, even when wearing glasses? No 11/14/2024 Do you have serious difficul ty walking or climbing stairs? No 11/14/2024 Do you have serious difficulty dressing or bathi ng? No 11/14/2024 Because of a physical, menta l, or emotional condition, do you have serious difficulty doing errands alone such as visiting the doctor? No 11/14/2024 Cognitive Status Response Date of Assessm ent Because of a physical, menta l, or emotional condition, do you have serious difficulty concentrating, remembering, or making decisions? (5 years old or older) No 11/14/2024 documented as of this encounter Progress Notes * Mariah Lucio MA - 11/24/2024 11:15 AM EST Called and spoke with Patrick regarding follow up head CT and office visit. CT booked for 12/05/24 with a 10:30 arrival, patient will come to the office following study. Per Patrick patient will be headed to [facility] today or tomorrow, I called the floor at [facility] and also spoke with chief unit forester who will make sure details of these appointments are given to rehab facility. documented in this encounter Plan of Treatment Upcoming Encounters Date Type Department Care Team ([facility] Contact Info) Description 12/05/2024 10:45 AM EST Appointment [facility] Scan [address] [place] [address] 12/05/2024 11:15 AM EST Office Visit Neurosurgery [facility] [address] [facility] [address] [place] [phone] Ashley Davis PA [address] [facility], [address] [place] [address] 03/06/2025 11:30 AM EDT Office Visit [employer] [facility] [address] [place] [address] Garcia Doran MD [address] [place] [address] documented as of this encounter Visit Diagnoses Not on filedocumented in this encounter Additional Health Concerns Infection Onset Date Last Indicated Resolved Time ESBL 11/14/2024 11/14/2024 Assessment Noted Time PHQ-9 Depression Total Score: 5 08/31/20 24 9:42 AM EST documented as of this encounter Care Teams Spooler Operator Relationship Specialty Start Date End Date Garcia Doran MD [address] [facility] [address] PCP - General Internal Medicine 01/11/22 documented as of this encounter
--- OUTSIDE RECORDS SUMMARY | 2024-11-27 05:22 | XMS_ITS | Encounter Summary ---
Author Organization [facility] Address [address] [place] [address] Care Team Providers Care Bottle Filler Name Role Phone Garcia Doran MD Primary Care Provider [phone] Reason for Visit * Auth/Cert Specialty Diagnoses / Procedures Referred By Gia t Referred To Contact Diagnoses Acute subdural hematoma (CMS/HCC) Procedures . Demarcus Villalobos MD [address] [place] [phone] [facility] Emergency [address] [place] [address] Referral ID Status Reason Start Date Expiration Date Visits Re quested Visits Authorized [id number] 1 1 Encounter Details Date Type Department Care Team (Late st Contact Info) Description 11/17/2024 12:18 PM EST Anesthesia Event [facility] Main OR [address] [place] [address] Dequan Kelsey DO [address] [place] [id number] Franck Ha DO [address] [place] [phone] Anesthesia Record Procedure Summary Procedure Name Responsible Anesthesiologist Anesthesia Start Time Anesthesia Stop Time HEMIARTHROPLASTY LEFT HIP, CEMENTED, POSTERIOR APPROACH (Left: Hip) Dequan Kelsey DO 11/17/24 1218 11/17/24 1454 Events Date Time Event Comment 11/17/2024 0927 1214 In Room 1218 An Start 1218 An Start Data The patient wa s reevaluated immediately before moderate or deep sedation use and before anesthesia induction. 1227 An Induction 1227 An Intubation 1227 Anesthesia Ready 1256 Proc Start 1438 Proc Fin 1445 An Extubation 1451 an stop data 1451 Out of Room 1454 Handoff to RN I completed my handoff to the receiving nurse during which we: 1. Identified the patient 2. Identified the responsible provider 3. Reviewed the pertinent medical history 4. Discussed the surgical course 5. Reviewed intra-op anesthesia management and issues during anesthesia 6. Set expectations for post-procedure period 7. Allowed opportunity for questions and acknowledgement of understanding. 1454 An Stop Meds Name Total fentaNYL (SUBLIMAZE) injection 250 mcg propofol (DIPRIVAN) injection 10 mg/mL 1 20 mg rocuronium 40 mg ondansetron 2 mg/mL 4 mg ePHEDrine injection 35 mg phenylephrine (LIOR-SYNEPHRINE) 100 mcg/m L syringe 10 mL 1,250 mcg dexamethasone (DECADRON) injection 4 mg/ mL 4 mg lidocaine PF (XYLOCAINE-MPF) local injec tion 2% 100 mg ceFAZolin (ANCEF) 2 g in sterile water 2 0 mL IV syringe 2 g sugammadex (BRIDION) injection 100 mg/mL 200 mg lactated Ringer's infusion 800 mL * Agents No agents on file. * Blood No blood administrations on file. Lines, Drains, and Airways Type Details Placement Removal Wound Incision; 11/17/24; 1449; Hip; Left 11/17/24 1449 by Vania Dickinson RN Wound Abrasion; 11/17/24; 1450; N; Face; Left; LEFT FOREHEAD 11/17/24 1450 by Vania Dickinson RN Peripheral IV Placement Date: 11/14/24; Placement Time: 1142; Catheter Size: 18 G; Orientation: Anterior, Right; Location: Forearm; Site Prep: Chlorhexidine; Insertion Attempts: 1; Removal Date: 11/17/24; Removal Time: 1500 11/14/24 1142 by Aleida Salinas RN 11/17/24 1500 by Eloise Cherry RN Urethral Catheter Placement Date: 11/14/24; Placement Time: 1300; Removal Date: 11/17/24; Removal Time: 1510 11/14/24 1300 by Margarita Arnett RN 11/17/24 1510 by Eloise Cherry RN ETT Placement Date: 11/17/24; Placement Time: 1246 (created via procedure documentation); Technique: Direct laryngoscopy; Type: ETT; Cuffed: Yes; Blade Size: 3; Location: Oral; Insertion Attempts: 1; Placement Verification: Auscultation, Capnometry, Palpation of cuff; Removal Date: 11/17/24; Removal Time: 1445 11/17/24 1246 by Dequan Kelsey, DO 11/17/24 1445 by Yehuda Cortez CRNA documented in this encounter Social History Tobacco Use Types Packs/Day Years [...] your loved ones. For example, child welfare director or elderly care for an older adult? [...] as of this encounter Progress Notes * Dequan eKlsey DO - 11/18/2024 8:47 AM EST Patient: Isabela Rios Procedure Summary Date: 11/17/24 Room / Location: [facility] OR 03 / [facility] OR Anesthesia Start: 1218 Anesthesia Stop: 1454 Procedure: HEMIARTHROPLASTY LEFT HIP, CEMENTED, POSTERIOR APPROACH (Left: Hip) Diagnosis: Hip fracture requiring operative repair, left, closed, initial encounter ([facility]) Surgeons: Sami Coon MD Responsible Provider: Dequan Kelsey DO Anesthesia Type: general ASA Status: 3 Anesthesia Plan: general Last Vitals: Vitals Value Taken Time BP 112/55 11/18/24316 Temp 36.6 ??C (97.9 ??F) 11/18/24316 Pulse 81 11/18/24316 Resp 16 11/18/24316 SpO2 96 % 11/18/24316 Pain Score: 3 Anesthesia Post Evaluation Patient location during evaluation: PACU Patient participation: complete - patient participated Level of consciousness: awake Pain score: 0 Pain management: adequate Airway patency: patent Anesthetic complications: no Cardiovascular status: acceptable Respiratory status: acceptable Hydration status: acceptable Nausea: No Vomiting: No There were no known notable events for this encounter. * Dequan Kelsey DO - 11/17/2024 12:46 PM ESTAssociated Order(s): Intubation General Information and Staff Patient location during procedure: OR Performed by: Dequan Kelsey DO Authorized by: Dequan Kelsey DO Intubation Airway not difficult Urgency: elective Final [...] 11/17/2024 12:46 PMStop Time: 11/17/2024 12:46 PM * Dequan Kelsey DO - 11/17/2024 9:26 AM EST Relevant Problems Cardio (+) HTN (hypertension) Neuro/Psych (+) Acute subdural hematoma (CMS/HCC) Endo (+) Hypothyroidism Clinical information reviewed: Tobacco Allergies Meds Med Hx Surg Hx Fam Hx Soc Hx Anesthesia Plan ASA 3 Anesthesia Plan: general Anesthesia Risks Discussed serious complications Induction method: intravenous Anesthetic plan and risks discussed with patient. Anesthesia Evaluation Patient summary reviewed Airway Mallampati: II Dental - normal exam Pulmonary - normal exam Cardiovascular - normal exam Neuro/Psych GI/Hepatic/Renal Endo/Other Abdominal PONV RISK SCORE: 3 Vitals: 11/16/24 1943 11/17/24 0132 11/17/24 0436 11/17/24 0748 BP: (!) 179/83 (!) 167/79 139/70 (!) 183/84 BP Location: Left arm Left arm Patient Position: Lying Lying Pulse: 88 78 77 80 Resp: 16 16 17 Temp: 37.1 ??C (98.8 ??F) 36.5 ??C (97.7 ??F) 36.6 ??C (97.8 ??F) TempSrc: Temporal SpO2: 96% 98% 97% Weight: Height: SpO2 Readings from Last 1 Encounters: 11/17/24 97% WBC Date Value Ref Range Status 11/17/2024 7.4 4.8 - 10.8 K/mcL Final RBC Date Value Ref Range Status 11/17/2024 3.40 (L) 3.80 - 4.80 M/mcL Final Hemoglobin Date Value Ref Range Status 11/17/2024 10.6 (L) 11.5 - 16.0 g/dL Final Hematocrit Date Value Ref Range Status 11/17/2024 32.3 (L) 35.0 - 47.0 % Final Platelets Date Value Ref Range Status 11/17/2024 150 130 - 400 K/mcL Final MCV Date Value Ref Range Status 11/17/2024 94.2 79.0 - 98.0 FL Final No Known Allergies STOP BANG: No data recorded NPO Status: No data recorded documented in this encounter Plan of Treatment Upcoming Encounters Date Type Department Care Team (Late st Contact Info) Description 12/05/2024 10:45 AM EST Appointment [facility] CT Scan [address] [place] [phone] 12/05/2024 11:15 AM EST Office Visit [facility] [place] [facility] [place] [address] [facility] [address] [place] [phone] Ashley Davis PA [address] [facility], [address] [place] [address] 03/06/2025 11:30 AM EDT Office Visit [facility] [address] [place] [phone] Garcia Doran MD [address] [place] [address] documented as of this encounter Procedures Procedure Name Priority Date/Time Associated Diagnosis Comments TH AN ENDOTRACHEAL(NO CHARGE) Routine 11/17/2024 12:46 PM EST documented in this encounter Results * TH AN ENDOTRACHEAL(NO CHARGE) (11/17/2024 12:46 [...] 12:46 PMStop Time: 11/17/2024 12:46 PM Dequan Kelsey ANESTHESIA ORDERABLE S documented in this encounter Visit Diagnoses Not on filedocumented in this encounter Administered Medications Inactive Administered Medications - up to 3 most recent administrations Medication Order MAR Action Action Date Dose Rate Site ceFAZolin (ANCEF) 2 g in sterile water 20 mL IV syringe 2 g, intravenous, Administer over 3 Minutes, Once, On Sun11/14/24 at 1515, For 1 dose, -IV Push over 3 minutes -Administer within 60 minutes of incision To be give in pre op , Indication: Prophylaxis-Surgical New Bag 11/17/2024 12:44 PM EST 2 g dexAMETHasone (DECADRON) injection intravenous, As needed, Starting on Sun11/17/24 at 1251, Anesthesia Intraprocedure Given 11/17/2024 12:44 PM EST 4 mg ePHEDrine (AKOVAZ) 50 mg/mL injection intravenous, As needed, Starting on Sun11/17/24 at 1232, Anesthesia Intraprocedure Given 11/17/2024 2:22 PM EST 5 mg Given 11/17/2024 2:13 PM EST 5 mg Given 11/17/2024 2:07 PM EST 5 mg fentaNYL (PF) (SUBLIMAZE) injection intravenous, As needed, Starting on Sun11/17/24 at 1227, Anesthesia Intraprocedure Given 11/17/2024 2:39 PM EST 2 5 mcg Given 11/17/2024 1:46 PM EST 25 mcg Given 11/17/2024 1:04 PM EST 100 mcg lactated Ringer's infusion intravenous, Continuous PRN, Starting on Sun11/17/24 at 1229, Anesthesia Intraprocedure New Bag 11/17/2024 12:29 PM EST lidocaine (PF) (XYLOCAINE-MPF) 2 % injection injection, As needed, Starting on Sun11/17/24 at 1227, Anesthesia Intraprocedure Given 11/17/2024 12:27 PM EST 100 mg ondansetron (PF) (ZOFRAN) injection intravenous, As needed, Starting on Sun11/17/24 at 1244, Anesthesia Intraprocedure Given 11/17/2024 12:44 PM EST 4 mg phenylephrine (LIOR-SYNEPHRINE) injection intravenous, As needed, Starting on Sun11/17/24 at 1232, Anesthesia Intraprocedure Given 11/17/2024 2:22 PM EST 200 mcg Given 11/17/2024 2:13 PM EST 200 mcg Given 11/17/2024 2:07 PM EST 200 mcg propofoL (DIPRIVAN) injection intravenous, As needed, Starting on Sun11/17/24 at 1227, Anesthesia Intraprocedure Given 11/17/2024 12:[address] 120 mg rocuronium (ZEMURON) injection intravenous, As needed, Starting on Sun11/17/24 at 1227, Anesthesia Intraprocedure Given 11/17/2024 12:27 PM EST 40 mg sugammadex (BRIDION) 100 mg/mL injection intravenous, As needed, Starting on Sun11/17/24 at 1442, Anesthesia Intraprocedure Given 11/17/2024 2:42 PM EST 2 00 mg documented in this encounter Additional Health Concerns Infection Onset Date Last Indicated Resolved Time ESBL 11/14/2024 11/14/2024 Assessment Noted Time PHQ-9 Depression Total Score: 5 08/31/20 24 9:42 AM EST documented as of this encounter Care Teams Bottle Filler Relationship Specialty Start Date End Date Garcia Doran MD [address] [place] [address] [place] [id number] PCP - General Internal Medicine 01/11/22 documented as of this encounter
--- OUTSIDE RECORDS SUMMARY | 2024-11-27 05:22 | XMS_ITS ---
Care Plan - [facility] Created on: November 27, 2024 Isabela Rios : 1945 Sex: Female Author Organization [facility] Address [address] [place] [address] Phone Care Team Providers Care Pipelines Manager Name Role Phone [facility] Unavailable [phone] Christofer Torres MD Primary Care Provider [phone]
--- OUTSIDE RECORDS SUMMARY | 2024-11-27 05:22 | XMS_ITS | Encounter Summary ---
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 Demarcus Villalobos MD [address] [place] [id number] [facility] Emergency [address] [place] [address] Referral ID Status Reason Start Date Expiration Date Visits Re quested Visits Authorized [id number] 1 1 Encounter Details Date Type Department Care Team (Late st Contact Info) Description 11/17/2024 1:00 PM EST - 11/17/2024 3:30 PM EST Surgery [facility] Main OR [address] [place] [address] Elva Hester MD [address] [place] [address] HEMIARTHROPLASTY LEFT HIP, CEMENTED, POSTERIOR APPROACH [32280 (CPT??)] Surgery Details Date/Time Status Location OR Service Patient Class Case Class Case Type Trauma Case? 11/17/2024 1:00 PM Posted [facility] OR OR Orthopedics Inpatient Panel 1 Procedure [facility] Anes Op Region Wound Class Comments HEMIARTHROPLASTY LEFT HIP, CEMENTED, POSTERIOR APPROACH Left general Hip Class I/ Yong an c-arm, lateral postion Surgeon Surgeon Role Service Panel Elva Hester MD Primary Orthopedics 1 Juan Luis Larsen MD Assisting Orthopedics 1 Case Notes c arm, implants, lateral position documented in this encounter Social History Tobacco [...] care for your loved ones. For example, children's court magistrate or elderly care for an older adult? [...] Sign Reading Time Taken Comments Blood Pressure 127/98 11/17/2024 3:30 PM EST Pulse 107 11/17/2024 3:30 PM EST Temperature 36.9 ??C (98.4 ??F) 11/17/2024 2 :55 PM EST Respiratory Rate 19 11/17/2024 3:30 PM EST Oxygen Saturation 97% 11/17/2024 3:3 0 PM EST Inhaled Oxygen Concentration - - Weight 65.8 kg (145 lb) 11/17/2024 11:1 0 AM EST per EPIC record Height 165.1 cm (5' 5 ) 11/14/2024 9:4 2 AM EST Body Mass Index 24.13 11/18/2024 10:10 AM EST documented in this encounter Functional Status Functional Status Response [...] No 11/14/2024 documented as of this encounter Discharge Summaries * Trace Burris MD - 11/24/2024 1:23 PM EST Images from the original note were not included. HOSPITAL MEDICINE DISCHARGE SUMMARY Patient Information Isabela Rios : 1945 [79 y.o.] Admitting Provider Demarcus Villalobos MD Discharge Provider Trace Burris MD Primary Care Physician Garcia Doran MD Admission Date 11/14/2024 Discharge Date 11/24/2024 Summary of Hospital Problems Primary Discharge Diagnosis: Acute subdural hematoma (CMS/HCC) Secondary Discharge Diagnosis: Left hip fracture Discharge Disposition Final discharge disposition not confirmed Code Status at Discharge: Full Code - Default Hospital Course Summary Presenting Problem/History of Present Illness Subdural hematoma (CMS/HCC) [S06.5XAA] Acute subdural hematoma (CMS/HCC) [S06.5XAA] Closed fracture of left hip, initial encounter ([facility]) [S72.002A] Chief Complaint Patient presents with Fall Altered Mental Status HPI 79-year-old former smoker woman with past medical history significant for hypertension, dyslipidemia, hypothyroidism, osteopenia, depression and anxiety was brought to [facility] ED after her found her around 3 AM today, lying down (on her belly) on the kitchen floor. It took him two hours to bring her to her recliner. It seems that her last well known time was around 8 PM last night. Of note,her , who is at bedside is the main contributor to this H&P, since the patient is confused and somewhat agitated. She does not seem to recall the circumstances of the fall. says that at times at night she wanders around the house. Of note, says that the patient has fallen2-3 times over the past week or two. She normally ambulates without any assistive device (such as cane or walker); but, her says that she is prone to fall easily. During the exam/interview she also complained of some pain over her left hip. She does not take any anticoagulation or antiplatelet medication. No fever or chills. No chest pain, abdominal pain or difficulty breathing. In the ED she was noted to be confused and became agitated. Requiring the use of soft wrist restraints. Work up in ED revealed an acute 8 mm right side subdural hematoma and a left side hip fracture.Neurosurgery and Orthopedics were called in consultation. Hospital Course 79-year-old female with PMH of HTN, hyperlipidemia, osteopenia, depression/anxiety brought into ED after she was found on the floor. Workup in the ED showed left hip fracture and subdural hematoma. On morning of 11/16 patient was found to have oxygen saturation of 85%, placed on oxygen. CT angio chest showed no evidence of PE, showed small bilateral pleural effusions. 1. Subdural hematoma Hematoma was treated conservatively, neurosurgery recommended no intervention. CT head x 2 showed stable subdural hematoma. Neurosurgery recommended outpatient follow-up with repeat CT head in 10-14 days. 2. Left hip fracture Orthopedic consulted, s/p left hip hemiarthroplasty on 11/17/[address] Hester. Patient will discharge to short-term rehab. Expected length of stay less than 30 days. Orthopedic surgeon reviewed anticoagulation with neurosurgeon and patient was cleared for prophylactic anticoagulation and was tolerating heparin. Orthopedic recommended 4-6 weeks of anticoagulation. 3. Probable UTI Urine culture was positive for ESBL E. coli. Patient was given fosfomycin. Currently asymptomatic. 4. Acute respiratory failure with hypoxia-resolved Patient was transiently on nasal cannula oxygen. She is now comfortable on room air. 5. Acute encephalopathy-resolved Patient had some dysarthria likely secondary to UTI and acute hospitalization. Patient has improved, at baseline prior to discharge. MRI brain did not show any acute CVA. Operative Procedures Performed: Procedure(s): HEMIARTHROPLASTY LEFT HIP, CEMENTED, POSTERIOR APPROACH Consults: orthopedic surgery and neurosurgery LABS/IMAGING CT Head wo Contrast Result Date: 11/15/2024 Examination: CT brain without contrast. CLINICAL INDICATION: Follow-up subdural hematoma. COMPARISON: CT brain 11/14/2024 at 2:10 PM. TECHNIQUE: Routine 2.5 mm thin axial and reformatted 3 mm thin sagittal and coronal images of brain were obtained. Scanner: [employer] 64 slice VCT Dose reduction technique: ASIR (Adaptive statistical iterative reconstruction) and/or AEC (automated exposure control) Dose: total exam DLP 900 mGy/cm. FINDINGS: Again visualized is a right frontoparietal subdural hematoma with a maximum thickness of [address] image 32/2. It is the same size as noted on theprevious CT exam. There is no midline shift. The greater white matter differentiation is maintained. Some effacement of right frontal parietal cortical sulci seen. Bone windows reveal no calvarial abnormality or fracture. There is mildly mucoperiosteal thickening right posterior ethmoid and sphenoid sinuses. Stable right frontoparietal subdural acute hematoma. There is mild cortical sulci effacement but nomidline shift seen. No calvarial fracture. Minimal mucoperiosteal thickening right posterior ethmoid and sphenoid sinuses. -------- FINAL REPORT -------- Dictated By: Alli De Anda Dictated Date: 11/15/2024 08:25 ET Assigned Physician: Alli De Anda Reviewed and Electronically Signed By: Precious De Andaigned Date: 11/15/2024 08:30 ET Workstation ID: [id number] Transcribed By: Self Edit Transcribed Date: 11/15/2024 08:[address] Head wo Contrast Result Date: 11/14/2024 PROCEDURE: HEAD CT INDICATION: Mental status changes TECHNIQUE: CT of the head without intravenous contrast. Multiplanar reformats. The examination was performed utilizing dose reduction techniques. Total DLP 2230 COMPARISON: 11/14/2024 FINDINGS: Unchanged mixed density right cerebral convexity subdural collection measuring up to 8 mm in maximal coronal dimension. Local mass effect upon the rightcerebrum is unchanged. No significant midline shift. No acute territorial infarct, new hemorrhage, or progressive mass effect. Mild scattered periventricular and subcortical white matter hypodensities are most likely related to chronic small vessel ischemic change. Ventricles are stable in size. Nohydrocephalus. Extracranial structures are unchanged. Unchanged right cerebral convexity subdural hematoma without significant midline shift. -------- FINAL REPORT -------- Dictated By: KYLER BARRERA Dictated Date: 11/14/2024 14:41 ET Assigned Physician: KYLER BARRERA Reviewed and Electronically Signed By: KYLER BARRERA Signed Date: 11/14/2024 14:51 ET Workstation ID: [id number] Transcribed By: Self Edit Transcribed Date: 11/14/2024 14:[address] Lower Extremity wo Contrast Left Result Date: 11/14/2024 PROCEDURE: Left lower extremity CT INDICATION: Fracture, pain TECHNIQUE: CT of the left lower extremity without intravenous contrast. Multiplanar reformats. The examination was performed utilizing dose reduction techniques. Total DLP 468. 3-D reformatted images were created on an independent workstation with direct supervision by the radiologist COMPARISON: Radiographs 11/14/2024 FINDINGS: There is an acute, impacted, and angulated left femoral neck fracture with slight anterior displacement ofthe distal fracture fragment and apex anterior angulation. No additional fractures. Soft tissue swelling around the left hip with left hip effusion. Visualized intra-abdominal and pelvic structures are unremarkable. No mass or fluid collection. Impacted and angulated left femoral neck fracture -------- FINAL REPORT -------- Dictated By: KYLER BARRERA Dictated Date: 11/14/2024 12:26 ET Assigned Physician: KYLER BARRERA Reviewed and Electronically Signed By: KYLER BARRERA Signed Date: 11/14/2024 12:30 ET Workstation ID: [id number] Transcribed By: Self Edit Transcribed Date: 11/14/2024 12:26 ET XR Chest 1 View Result Date: 11/14/2024 Procedure: AP chest radiograph. HISTORY: weakness, fall. COMPARISON: None. FINDINGS: Linear markings at the bases suggesting mild subsegmental atelectasis. Pleural spaces, pulmonary vasculature, and heart size are normal. Atherosclerotic calcifications of the aorta. Mild degenerative changes of the spine. No acute findings. -------- FINAL REPORT -------- Dictated By: Vinayak Austin Dictated Date: 11/14/2024 11:08 ET Assigned Physician: Vinayak Austin Reviewed and Electronically Signed By: Vinayak Austin Signed Date: 11/14/2024 11:08 ET Workstation ID: [id number] Transcribed By: Self Edit Transcribed Date: 11/14/2024 11:08 ET XR Hip 2-3 Views Left Result Date: 11/14/2024 Multiple views of the left hip, 11/14/2024. HISTORY: trauma. COMPARISON: None. FINDINGS: Bones appear demineralized. There are mild degenerative changes of the lumbar spine, pubic symphysis, and hips.There is an acute transcervical femoral neck fracture. No significant displacement or angulation. Acute transcervical femoral neck fracture. -------- FINAL REPORT -------- Dictated By: Vinayak Austin Dictated Date: 11/14/2024 11:05 ET Assigned Physician: Vinayak Austin Reviewed and Electronically Signed By: Vinayak Austin Signed Date: 11/14/2024 11:08 ET Workstation ID: [id number] Transcribed By: Self Edit Transcribed Date: 11/14/2024 11:[address] Head wo Contrast Result Date: 11/14/2024 PROCEDURE: Noncontrast head CT. HISTORY: trauma. COMPARISON: None. TECHNIQUE: Noncontrast head CT with coronal and sagittal reformats. Dose length product: 1070 mGy-cm. FINDINGS: Brain: There is a subdural hematoma along the right convexity which measures up to 8 mm in thickness. The hematomas of mixed attenuation but is predominantly hyperattenuating suggestive of acute blood products. Minimal mass effect. No midline shift. No CT evidence of an acute infarct. No mass. Atherosclerotic calcifications of the carotid siphons. Small dystrophic calcifications of the globus pallidus bilaterally. NoCT evidence of an acute large vessel infarct. Ventricles and sulci are age commensurate. Orbits: Normal. Sinuses/mastoids: Small amount of layering fluid in the right sphenoid sinus. Small amount of bubbly debris in one of the posterior right ethmoid air cells. Calvarium: Mild hyperostosis frontalis interna. Other: Partially calcified oval 13 mm scalp mass at the right parietal vertex, likely an epidermal inclusion cyst. Degenerative changes of the temporomandibular joints, right greater than left. 8 mm subdural hematoma along the right convexity. -------- FINAL REPORT -------- Dictated By: Vinayak Austin Dictated Date: 11/14/2024 10:30 ET Assigned Physician: Vinayak Austin Reviewed and Electronically Signed By: Vinayak Austin Signed Date: 11/14/2024 10:36 ET Workstation ID: [id number] Transcribed By: Self Edit Transcribed Date: 11/14/2024 10:30 ET Lab Results Component Value Date INR 1.0 11/14/2024 Lab Results Component Value Date NA 138 11/24/2024 K 4.1 11/24/2024 CL 105 11/24/2024 CO2 30 11/24/2024 GLUCOSE 101 (H) 11/24/2024 BUN 16 11/24/2024 CREATININE 0.77 11/24/2024 CALCIUM 8.8 11/24/2024 PROT 6.8 11/14/2024 ALBUMIN 3.9 11/14/2024 BILITOT 1.0 11/14/2024 AST 52 (H) 11/14/2024 ALT 40 11/14/2024 MG 2.0 11/15/2024 ALKPHOS 81 11/14/2024 CKTOTAL 668 (H) 11/14/2024 EGFR 80 11/24/2024 Lab Results Component Value Date WBC 8.1 11/24/2024 HGB 8.8 (L) 11/24/2024 HCT 26.9 (L) 11/24/2024 MCV 96.1 11/24/2024 PLT 389 11/24/2024 Discharge Medications Your medication list START taking these medications Instructions Last Dose Given Next Dose Due acetaminophen 500 mg tablet Commonly known as: TYLENOL Take 2 tablets (1,000 mg total) by mouth every 8 (eight) hours for 10 days. amLODIPine 2.5 mg tablet Commonly known as: NORVASC Start taking on: November 25, 2024 Take 1 tablet (2.5 mg total) by mouth 1 (one) time each day. melatonin 3 mg tablet Take 1 tablet (3 mg total) by mouth at bedtime. oxyCODONE 5 mg immediate release tablet Commonly known as: ROXICODONE Take 1 tablet (5 mg total) by mouth every 4 (four) hours if needed (moderate pain or when therapiesfor mild pain were not effective) for up to 1 day. Max Daily Amount: 30 mg senna-docusate 8.6-50 mg per tablet Commonly known as: PERICOLACE Take 2 tablets by mouth at bedtime. CHANGE how you take these medications Instructions Last Dose Given Next Dose Due levothyroxine 75 mcg tablet Commonly known as: SYNTHROID, LEVOTHROID What changed: medication strength how much to take Take 1 tablet (75 mcg total) by mouth 1 (one) time each day. CONTINUE taking these medications Instructions Last Dose Given Next Dose Due citalopram 20 mg tablet Commonly known as: CeleXA Please take 1.5 tablet daily ferrous sulfate 325 mg (65 mg elemental iron) tablet Take by mouth. MULTIPLE VITAMINS ORAL Take by mouth. STOP taking these medications diclofenac 1 % topical gel Commonly known as: VOLTAREN Where to Get Your Medications You can get these medications from any pharmacy Bring a paper prescription for each of these medications oxyCODONE 5 mg immediate release tablet Information about where to get these medications is not yet available Ask your nurse or doctor about these medications acetaminophen 500 mg tablet amLODIPine 2.5 mg tablet levothyroxine 75 mcg tablet melatonin 3 mg tablet senna-docusate 8.6-50 mg per tablet Follow-Up Instructions and Recommendations [address] [address] No discharge procedures on file. There are no outpatient Patient Instructions on file for this admission. Outpatient Follow-Up Future Appointments Date Time Provider Department Center 12/05/2024 10:[address] [facility] 12/05/2024 11:15 AM FRANCES Bee [facility]URS None 03/06/2025 11:30 AM Garcia Doran MD [facility] Bic Test Results Pending at Discharge: None Physical Exam at time of Discharge Vitals Visit Vitals BP 121/69 (BP Location: Left arm;Upper, Patient Position: Lying) Pulse 67 Temp 36.3 ??C (97.4 ??F) (Temporal) Resp 16 Temp (24hrs), Av.4 ??C (97.6 ??F), Min:36.2 ??C (97.2 ??F), Max:36.7 ??C (98.1 ??F) Body mass index is 24.13 kg/m??. No results found for: PTWT , PTHT Physical Exam Vitals and nursing note reviewed. Constitutional: Appearance: Normal appearance. HENT: Head: Normocephalic. Comments: Left periorbital bruising Nose: Nose normal. Mouth/Throat: Mouth: Mucous membranes are moist. Cardiovascular: Rate and Rhythm: Normal rate and regular rhythm. Heart sounds: No murmur heard. Pulmonary: Effort: Pulmonary effort is normal. Breath sounds: Normal breath sounds. Abdominal: General: There is no distension. Palpations: Abdomen is soft. There is no mass. Tenderness: There is no abdominal tenderness. There is no guarding. Musculoskeletal: General: No deformity. Normal range of motion. Comments: Clean and dry dressing to left hip Skin: General: Skin is warm and dry. Neurological: General: No focal deficit present. Mental Status: She is alert. Mental status is at baseline. I spoke with the patient and Fredy regarding the discharge plan. The discharge plan was discussed with case management and nursing staff. Patient verbalized understanding and was agreeable with the discharge plan. Total Time Spent on Discharge Process: Greater than 30 minutes. Time was spent educating patient, making a comprehensive discharge plan, discussion with staff regarding the discharge plan, medication reconciliation and discharge summary. Trace Burris MD 11/24/2024 1:34 PM EST documented in this encounter Discharge Instructions * Discharge Instructions* FRANCES Hardwick - 11/14/2024 12:32 PM EST ORTHOPEDIC DISCHARGE INSTRUCTIONS Diagnosis: Left hip fracture Surgery: Left hip hemiarthroplasty on 11-15-[address] Hester - Follow up with [facility] in 2 weeks. If you do not already have a follow-up appointment listed below in your discharge instructions, please call to schedule one within 1 to 2 days of discharge. If you are unable to keep your appointment, please contact the office. Contact information is listed below. At your follow up appointment, you will undergo repeat x-rays and likely have the king/sutures removed from your surgical wound. - Follow up: 12/01/24 at 9:40 AM - Weightbearing as tolerated on your operative lower extremity with walker protection. Avoid flexion beyond 90 degrees combined with internal rotation and adduction. Continue abduction pillow at night for 1 month from surgery. - Continue PT/OT for ADL's and gait training. - Due to recent subdural hematoma, anticoagulation was initially held then converted to Heparin SQ.Please continue Heparin SQ as prescribed with very close monitoring for any cognitive or neurological decline. Follow up with Dr. Damico, neurosurgeon, in 2-[address] weeks for repeat head CT in 2 to 3 weeks. - Remove silver Aquacel dressing 1 week after surgery and apply a new Aquacel dressing. Change thatdressing every 7 days until surgical king or sutures are removed and there is no wound drainage.You may shower as long as the dressing is intact. The dressing may not be submerged in water, such as in pools, lakes, or oceans. - Keep taking your narcotic pain medication as needed for severe pain. You may cut the pills in half. You should continue to take stool softeners while taking narcotics. Do not drink alcohol, drive, or take other narcotics while taking this medication. You may also take Tylenol and ibuprofen for pain as instructed. It can be helpful to take ibuprofen with food to prevent GI upset. Do not take Tylenol or ibuprofen if you have been told not to for medical reasons. - You may apply ice to reduce swelling and improve pain. Do not apply the ice directly to your skinand apply for no more than 20 minutes at a time. - You may resume your regular diet. Drink fluids to keep yourself hydrated. - Do not drive until cleared to do so at your follow up appointment. - Please call [facility] with any questions or concerns. [facility] [address] [place] [address] documented in this encounter Medications at Time of Discharge Medication Sig Dispensed Refills Start Date End Date acetaminophen (TYLENOL) 500 mg tablet Take 2 tablets (1,000 mg total) by mouth every 8 (eight) hours for 10 days. 11/24/2024 12/04/2024 citalopram (CeleXA) 20 mg tablet Please take 1.5 tablet daily 135 tablet 1 09/03/2024 ferrous sulfate 325 mg (65 mg elemental iron) tablet Take by mouth. heparin sodium,porcine (heparin, UFH,) 5,000 unit/mL injectionIndications:Prop hylaxis of Venous Thromboembolism Inject 1 mL (5,000 Units total) under the skin every 12 (twelve) hours. 11/24/2024 levothyroxine (SYNTHROID, LEVOTHROID) 75 mcg tablet Take 1 tablet (75 mcg total) by mouth 1 (one) time each day. 11/24/2024 melatonin 3 mg tablet Take 1 tablet (3 mg total) by mouth at bedtime. 11/24/2024 multivitamin (MULTIPLE VITAMINS ORAL) Take by mouth. senna-docusate (PERICOLACE) 8.6-50 mg per tablet Take 2 tablets by mouth at bedtime. 11/24/2024 12/24/2024 amLODIPine (NORVASC) 2.5 mg tablet TAKE 1 TABLET BY MOUTH DAILY 100 tablet 1 11/26/2024 documented as of this encounter Ordered Prescriptions Prescription Sig Dispensed Refills Start Date End Da te heparin sodium,porcine (heparin, UFH,) 5,000 unit/mL injectionIndications:Prop hylaxis of Venous Thromboembolism Inject 1 mL (5,000 Units total) under the skin every 12 (twelve) hours. 11/24/2024 senna-docusate (PERICOLACE) 8.6-50 mg per tablet Take 2 tablets by mouth at bedtime. 11/24/2024 12/24/2024 melatonin 3 mg tablet Take 1 tablet (3 mg total) by mouth at bedtime. 11/24/2024 levothyroxine (SYNTHROID, LEVOTHROID) 75 mcg tablet Take 1 tablet (75 mcg total) by mouth 1 (one) time each day. 11/24/2024 acetaminophen (TYLENOL) 500 mg tablet Take 2 tablets (1,000 mg total) by mouth every 8 (eight) hours for 10 days. 11/24/2024 12/04/2024 oxyCODONE (ROXICODONE) 5 mg immediate release tablet Take 1 tablet (5 mg total) by mouth every 4 (four) hours if needed (moderate pain or when therapies for mild pain were not effective) for up to 1 day. Max Daily Amount: 30 mg 6 tablet 11/24/2024 11/25/2024 amLODIPine (NORVASC) 2.5 mg tablet Take 1 tablet (2.5 mg total) by mouth 1 (one) time each day. 11/25/2024 11/26/2024 documented in this encounter Discharge Disposition Disposition Code Departure Means Destination Comment [facility] documented in this encounter Progress Notes * Joseph Arita RN - 11/26/2024 5:53 PM EST Problem: Cognitive: Kelsea Munoz Fall Risk Goal: Last Known Fall Outcome: Adequate for Discharge Goals: Identify possible barriers to meeting goals/advancing plan of care: none Stability of the patient: Moderately Stable - Low risk of patient condition declining or worsening End of Shift Summary: Pt alert and oriented x2, wifty at times. Pt and with intermittent pain managed by prn oxycodone. Pt resting comfortably at this time awaiting discharge/transfer to SNF. * Kristie Forrester RD - 11/26/2024 4:32 PM EST 11/26/2024 @ 4:32 PM EST Nutrition Follow Up Note Reason for RD Intervention: Assessment Type: Follow-up Reason for Assessment: High MST Score Anthropometrics: Height: 165.1 cm (65 ) Weight: 65.8 kg (144 lb 15.9 oz) Weight Method: Actual (bed scale) BMI (Calculated): 24.1 BMI Class: Normal Current Diet and Supplements: Dietary Orders (From admission, onward) Start Ordered 11/17/24 1503 Adult diet [facility]; Modified Consistency Options for Liquidsand Solids, General; Regular; IDDSI Level 7 Easy to Chew (Order Panel) Diet effective now Question Answer Comment Location [facility] Diet Type (req) Modified Consistency Options for Liquids and Solids Diet Type (req) General General Diet Regular Modified Consistency Options for Liquids and Solids IDDSI Level 7 Easy to Chew 11/17/24 1509 History of presenting illness: Patient is a 79 y.o. female with a history of Past Medical History: Diagnosis Date Anxiety 06/11/2017 DX:Anxiety Depression 07/06/2017 DX:Depression HTN (hypertension) 06/11/2017 DX:HTN (hypertension) HTN (hypertension) DX:HTN (hypertension) HTN (hypertension) DX:HTN (hypertension) Hypothyroidism 06/11/2017 DX:Hypothyroidism Hypothyroidism DX:Hypothyroidism Osteopenia 07/06/2017 DX:Osteopenia Past Surgical History: Procedure Laterality Date WISDOM TOOTH EXTRACTION PROCEDURE: HISTORICAL WISDOM TEETH EXTRACTION admitted 11/14/2024 with Acute subdural hematoma (CMS/HCC). Weight History: Wt Readings from Last 10 Encounters: 11/18/24 65.8 kg (144 lb 15.9 oz) 09/03/24 68.2 kg (150 lb 6.4 oz) 02/28/24 69.2 kg (152 lb 9.6 oz) 08/01/23 70 kg (154 lb 4.8 oz) 07/11/23 69.5 kg (153 lb 3.2 oz) 12/28/22 70.1 kg (154 lb 9.6 oz) 06/15/22 70.4 kg (155 lb 3.2 oz) Subjective Assessment: Pt seen for follow up- noted after visit, case repairer note stating that pt discharging to [facility] facility at 6 pm today. Pt reports good intake/appetite. States she is having at least half of meals. occup therapist indicates pt consume 100% of meals on 11/24-11/25. Observed ~50% of lunch tray today eaten. Constipation resolved- had BM 11/23 and today. Pt states she is tolerating IDDSI 7 easy to chew diet without issue. Nutrition-Related Lab Values: Results from last 7 days Lab Units 11/26/24 0549 SODIUM mmol/L 138 POTASSIUM mmol/L 4.5 CHLORIDE mmol/L 105 CO2 mmol/L 29 BUN mg/dL 15 CREATININE mg/dL 0.72 EGFR mL/min/1.73m2 86 CALCIUM mg/dL 8.7 GLUCOSE mg/dL 86 WBC AUTO K/mcL 8.6 No results found for: LIPASE Medications: acetaminophen, 1,000 mg, oral, q8h SADIE amLODIPine, 2.5 mg, oral, Daily citalopram, 30 mg, oral, Daily heparin (porcine), 5,000 Units, subcutaneous, q12h SADIE levothyroxine, 75 mcg, oral, Daily melatonin, 3 mg, oral, Nightly multivitamin, 1 tablet, oral, Daily pantoprazole, 40 mg, oral, q AM AC polyetheylene glycol, 17 g, oral, Daily senna-docusate, 2 tablet, oral, Nightly sodium chloride, 10 mL, intravenous, BID CONTINUOUS: Oxygen Therapy, Adult, PRN medications: acetaminophen, hydrALAZINE, HYDROmorphone, magnesium hydroxide, naloxone, ondansetron, oxyCODONE, oxyCODONE, oxyCODONE, [COMPLETED] Insert peripheral IV AND Maintain IV access AND [COMPLETED] Saline lock IV AND sodium chloride AND sodium chloride Food/Nutrition-Current Status: Intake Type: P.O. Current Diet Status: Appropriate Current Supplement Status: Other (Comment) (not ordered) Appetite: Good Intake Amount (%): 50-75% Intake Assessment: Adequate Nutrition Diagnosis: Code Type: None Identified Status: Improvement Diagnosis: Altered GI Function Etiology: Changes in GI motility Symptoms: as evidenced by constipation Nutrition Interventions: Diet Order, Meals/Snacks - Continue diet as ordered. - Monitor adequacy of PO intake; consider offering snacks/supplements if pt consuming <65% of meals on follow up. - Monitor weights, BM Goals: Patient will consume greater than or equal to 75% meals., Maintain weight., Stooling appropriately., and Maintain skin integrity. Monitoring/Evaluation: Fluid/Beverage Intake, Food Intake, Weight, Gastrointestinal Profile Follow Up: Nutrition Priority Level: Moderate Please consult nutrition if needed sooner. RD remains available and will continue to follow. Signature: Kristie Forrester RD * Nica Ruelas RN - 11/26/2024 4:29 PM EST 11/26/24 1627 Initial Transition Plan Initial Transition Plan Jail Facility Transportation Transportation at discharge [facility] providing transportation Amanuel What day is the transport expected? 11/26/24 What time is the transport expected? 1800 Final Discharge Disposition Jail Facility ([facility] spoke to Fredy and daughter Yovana and updated them on transfer * Bridgette Zelaya - 11/26/2024 1:10 PM EST [facility] Physical Therapy Treatment PT Discharge Recommendations: Inpatient rehab facility placement, penitentiary facility placement Equipment Recommended: walker Staff Recommendations for safe patient handling: Speedy/CG for transfers Precautions Medical Precautions: Fall Risk Safety Interventions: Call burris within reach, ID band on, Chair alarm, Telesitter RUE Weight Bearing Status: Full LUE Weight Bearing Status: Full RLE Weight Bearing Status: Full LLE Weight Bearing Status: As Tolerated Orthopedic Precautions: Posterior Hip Precautions Orthoses Applied: (abductor pillow in bed) History of Present Illness: Patient is a 79 y.o. female admitted to [facility] on 11/14/2024 with: Patient Active Problem List Diagnosis Anxiety Depression HTN (hypertension) Hyperlipidemia Hypothyroidism Osteopenia Osteoporosis Closed fracture of left hip (CMS/HCC) Acute subdural hematoma (CMS/HCC) Fall prevention education provided including use of call light in hospital, use of appropriate assistive device, safe mobility techniques, and safety measures at home. Continue PT as per POC. Subjective I am done with this and I do not think I am going to every get better. Objective 11/26/24 0900 PT Last Visit PT Received On 11/26/24 PT Time Calculation PT Start Time 0900 PT Stop Time 0945 PT Time Calculation (min) 45 min Precautions Medical Precautions Fall Risk Safety Interventions Call burris within reach;ID band on;Chair alarm;Telesitter RUE Weight Bearing Status Full LUE Weight Bearing Status Full RLE Weight Bearing Status Full LLE Weight Bearing Status As Tolerated Orthopedic Precautions Posterior Hip Precautions Vital Signs Patient Identification Yes BP (93/39 after walk to bathroom, 100/81 after standing, 125/45 back to bed) SpO2 95 % Oxygen Therapy Pulse Oximetry Type Intermittent Pulse Oximetry Location Finger Oxygen Therapy None (Room air) Pain Assessment Pain Assessment 0-10 Pain Score 6 Pain Type Surgical pain Pain Location Hip Pain Orientation Left Cognition Overall Cognitive Status Impaired Arousal/Alertness Delayed responses to stimuli Orientation Level Oriented X4 Following Commands Follows one step commands with increased time;Follows one step commands with repetition Safety Judgment Decreased awareness of need for assistance;Decreased awareness of need for safety Awareness of Errors Decreased awareness of errors Deficits Decreased awareness of deficits Attention Span Difficulty dividing attention;Difficulty attending to directions Cognition Comments inc difficulty following cues today compare to previous days, pt is very fatigued with activity Activity Tolerance Endurance Tolerates less than 10 min exercise with changes in vital signs Activity Tolerance Comments see BP above - orthostats Static Sitting Balance Static Sitting-Level of Assistance Contact guard Static Sitting-Balance Support Feet supported;Right upper extremity supported;Left upper extremity supported Static Sitting-Comment/Number of Minutes pt is very fatigued and lightheaded Dynamic Sitting Balance Dynamic Sitting-Level of Assistance Contact guard Static Standing Balance Static Standing-Level of Assistance Contact guard Static Standing-Balance Support Right upper extremity supported;Left upper extremity supported Dynamic Standing Balance Dynamic Standing-Level of Assistance Minimum assistance Bed Mobility Sitting to Lying Assistance Maximum assistance (needed help laying back down due to lightheadedness) Lying to Sitting Assistance Minimum assistance Transfers Sit to Stand Assistance Minimum assistance Chair/Bed to Chair/Bed Transfer Assistance Minimum assistance Toilet Transfer Assistance Minimum assistance Transfer Comments pt is lethargic on toilet - needs close supervision Ambulation Walking Assistance Contact guard;Minimum assistance Device Rolling walker Pattern Shuffle;L Decreased stance time (IR on L needs cues to correct) Distance Ambulated (ft) 20 Stairs Stairs Assistance Not attempted, medical/safety concerns (see vitals) RUE Assessment RUE Assessment Within Functional Limits LUE Assessment LUE Assessment Within Functional Limits RLE Assessment RLE Assessment Within Functional Limits LLE Assessment LLE Assessment Impaired LLE Assessment Comments pt unable to follow cues to perform LAQ 2+/5 with px and hip flexor compensation Procedures Procedures Therapeutic Activity;Gait Training Gait Training Gait Training Time Entry 15 Gait Training Activity 1 pt was supine in bed and needed Speedy to sit up out of bed. ambulating 10 ft to bathroom with CG and needed Speedy to sit on toilet. pt toileted with Speedy and needed verbal cuesto stay awake on toilet. pt ambulated with Speedy to chair and felt fatigued. pt sat for 8 min- didntfeel better. Attempted therex, pt was too weak and pxful. Increased altered mental status. Took BP refer to above and pt was orthostatic so got back to bed. Nurse was alerted. Therapeutic Activity Therapeutic Activity Time Entry 30 Therapeutic Activity 1 see above PT Assessment PT Assessment Results Decreased strength;Decreased range of motion;Decreased endurance;Impaired balance;Impaired gait;Decreased mobility;Decreased cognition;Decreased coordination;Impaired judgement;Decreased safety awareness Prognosis Good Evaluation/Treatment Tolerance Patient limited by fatigue Comments limited by vitals see above Medical Staff Made Aware Yes Plan Treatment/Interventions LE strengthening/ROM;Endurance training;Bed mobility;Gait training;Functional transfer training;ADL retraining PT Plan Skilled PT PT Frequency 2-5 days per week PT Duration of Sessions 15-30 min per session PT Treatments per day 1 time per day PT Discharge Recommendations Inpatient rehab facility placement;penitentiary facility placement Equipment Recommended walker Barriers to Discharge cognition, does not remember precautions PT - Evaluation Status Complete Procedure/Treatment: Procedures Procedures: Therapeutic Activity, Gait Training Gait Training Gait Training Time Entry: 15 Gait Training Activity 1: pt was supine in bed and needed Speedy to sit up out of bed. ambulating 10 ft to bathroom with CG and needed Speedy to sit on toilet. pt toileted with Speedy and needed verbal cues to stay awake on toilet. pt ambulated with Speedy to chair and felt fatigued. pt sat for 8 min- didnt feel better. Attempted therex, pt was too weak and pxful. Increased altered mental status. Took BPrefer to above and pt was orthostatic so got back to bed. Nurse was alerted. Gait Training Activity 2: ``` Therapeutic Activity Therapeutic Activity Time Entry: 30 Therapeutic Activity 1: see above Patient left lying supine in bed. RN notified of pt. status, location, response to treatment, and therapy recommendations. Physical Therapy Assessment/Plan PT Assessment PT Assessment Results: Decreased strength, Decreased range of motion, Decreased endurance, Impairedbalance, Impaired gait, Decreased mobility, Decreased cognition, Decreased coordination, Impaired judgement, Decreased safety awareness Prognosis: Good Evaluation/Treatment Tolerance: Patient limited by fatigue Comments: limited by vitals see above Medical Staff Made Aware: Yes Plan Treatment/Interventions: LE strengthening/ROM, Endurance training, Bed mobility, Gait training, Functional transfer training, ADL retraining PT Plan: Skilled PT PT Frequency: 2-5 days per week PT Duration of Sessions: 15-30 min per session PT Treatments per day: 1 time per day PT Discharge Recommendations: Inpatient rehab facility placement, penitentiary facility placement Equipment Recommended: walker Barriers to Discharge: cognition, does not remember precautions PT - Evaluation Status: Complete PT - OK to Discharge: Yes Physical Therapy Goals/Education Encounter Problems Encounter Problems (Active) Template: Physical Therapy Problem: PT Short Term Goals Dates: Start: 11/21/24 Goal: Pt will be able to repeat all 3 hip precautions w/o assistance. Dates: Start: 11/21/24 Expected End: 11/28/24 Outcomes Date/Time User Outcome 11/24/24 1130 Bridgette Zelaya Progressing Goal: Pt will be able to navigate 10 stairs w/CG and 2 rails and minimal cues. Dates: Start: 11/21/24 Expected End: 11/28/24 Outcomes Date/Time User Outcome 11/24/24 1130 Bridgette Zelaya Progressing Encounter Problems (Resolved) Template: Physical Therapy Problem: PT Short Term Goals Dates: Start: 11/18/24 Resolved: 11/21/24 Goal: Patient will transfer supine<>sit with min assist (Resolved) Dates: Start: 11/18/24 Expected End: 11/20/24 Resolved: 11/21/24 Outcomes Date/Time User Outcome 11/21/24 1052 Bridgette Zelaya Completed Goal: Patient will transfer sit<>stand safely with min assist of 1 (Resolved) Dates: Start: 11/18/24 Expected End: 11/21/24 Resolved: 11/20/24 Outcomes Date/Time User Outcome 11/20/24 1325 Bridgette Zelaya Completed Goal: Patient will transfer supine<>sit with min assist (Resolved) Dates: Start: 11/19/24 Expected End: 11/21/24 Resolved: 11/21/24 Outcomes Date/Time User Outcome 11/21/24 1052 Bridgette Zelaya Completed Goal: Patient will transfer sit<>stand safely , min assist (Resolved) Dates: Start: 11/19/24 Expected End: 11/24/24 Resolved: 11/20/24 Outcomes Date/Time User Outcome 11/20/24 1325 Bridgette Zelaya Completed Education Documentation Body Mechanics, taught by Bridgette Zelaya at 11/26/2024 1:09 PM. Learner: Patient Readiness: Cognitively Impaired Method: Demonstration, Explanation, Handout Response: Needs Reinforcement Comment: precautions given by handout and taped to board in room. pt not demonstrating understanding. Precautions, taught by Bridgette Zelaya at 11/26/2024 1:09 PM. Learner: Patient Readiness: Cognitively Impaired Method: Demonstration, Explanation, Handout Response: Needs Reinforcement Comment: precautions given by handout and taped to board in room. pt not demonstrating understanding. Home Exercise Program, taught by Bridgette Zelaya at 11/26/2024 1:09 PM. Learner: Patient Readiness: Cognitively Impaired Method: Demonstration, Explanation, Handout Response: Needs Reinforcement Comment: precautions given by handout and taped to board in room. pt not demonstrating understanding. Mobility Training, taught by Bridgette Zelaya at 11/26/2024 1:09 PM. Learner: Patient Readiness: Cognitively Impaired Method: Demonstration, Explanation, Handout Response: Needs Reinforcement Comment: precautions given by handout and taped to board in room. pt not demonstrating understanding. Education Comments No comments found. Bridgette Zelaya * Trace Burris MD - 11/26/2024 12:54 PM EST Images from the original note were not included. SEL[facility] PROGRESS NOTE Date: 11/26/2024 Author: Trace Burris MD Patient ID: Isabela Rios is a 79 y.o. female : 1945 MR#: [id number] ASSESSMENT & PLAN Assessment/Plan Principal Problem: Acute subdural hematoma (CMS/HCC) Active Problems: Closed fracture of left hip (CMS/HCC) Isabela Rios is a 79 y.o. female who has PMH of HTN, hyperlipidemia, osteopenia, depression was brought to the ED after she was found on the floor. Workup in the ED showed left hip fracture and subdural hematoma. 1. Subdural hematoma Treated conservatively, no intervention recommended by neurosurgeons. CT head x 2 showed stable hematoma. Outpatient follow-up in 10-[address] head recommended. 2. Left hip fracture S/p left hip ORIF on 11/25. On prophylactic anticoagulation. Cleared for discharge by orthopedic, waiting for SNF placement. 3. UTI Patient is symptomatic, urine culture was positive for ESBL E. coli. Patient received fosfomycin. SUBJECTIVE Subjective No events overnight. was present at bedside. Patient denies any complaints. She is only frustrated with still being in hospital. Allergies Patient has no known allergies. Current Medications: acetaminophen, 1,000 mg, oral, q8h SADIE amLODIPine, 2.5 mg, oral, Daily citalopram, 30 mg, oral, Daily heparin (porcine), 5,000 Units, subcutaneous, q12h SADIE levothyroxine, 75 mcg, oral, Daily melatonin, 3 mg, oral, Nightly multivitamin, 1 tablet, oral, Daily pantoprazole, 40 mg, oral, q AM AC polyetheylene glycol, 17 g, oral, Daily senna-docusate, 2 tablet, oral, Nightly sodium chloride, 10 mL, intravenous, BID Oxygen Therapy, Adult, PRN medications: acetaminophen, hydrALAZINE, HYDROmorphone, magnesium hydroxide, naloxone, ondansetron, oxyCODONE, oxyCODONE, oxyCODONE, [COMPLETED] Insert peripheral IV AND Maintain IV access AND [COMPLETED] Saline lock IV AND sodium chloride AND sodium chloride OBJECTIVE Vitals: 11/25/24 1445 11/25/24 2012 11/26/24 0333 11/26/24 0827 BP: 128/62 126/57 117/56 117/61 BP Location: Left arm Left arm Left arm Left arm Patient Position: Sitting Lying Lying Lying Pulse: 78 73 66 72 Resp: 17 16 16 16 Temp: 36.1 ??C (96.9 ??F) 36.8 ??C (98.3 ??F) 36.1 ??C (97 ??F) 36.2 ??C (97.1 ??F) TempSrc: Temporal Temporal Temporal Temporal SpO2: 95% 97% 95% 99% Weight: Height: Physical Exam Vitals and nursing note reviewed. General-alert and in no acute distress HEENT-normocephalic, atraumatic, PERRLA, MMM Neck-supple, nontender, no JVD Chest- no accessory muscle use, no crackles, no wheezing Cardiovascular-S1, S2, no murmurs, rubs or gallops, regular rate and rhythm Abdomen-soft, nontender, nondistended, no mass Extremity-clean and dry left hip dressing. No deformity, no edema Skin-no rash, no bruise, no jaundice Neurologic-alert, oriented x3, no focal deficit LABS HEMATOLOGY Lab Results Component Value Date WBC 8.6 11/26/2024 HGB 7.8 (L) 11/26/2024 HCT 25.0 (L) 11/26/2024 MCV 98.8 (H) 11/26/2024 PLT 478 (H) 11/26/2024 CHEMISTRY Lab Results Component Value Date GLUCOSE 86 11/26/2024 NA 138 11/26/2024 K 4.5 11/26/2024 CO2 29 11/26/2024 CL 105 11/26/2024 BUN 15 11/26/2024 CREATININE 0.72 11/26/2024 EGFR 86 11/26/2024 CALCIUM 8.7 11/26/2024 MG 2.0 11/15/2024 ANIONGAP 4 11/26/2024 No results found for this or any previous visit (from the past 168 hour(s)). Imaging: CT Head wo Contrast Narrative: PROCEDURE: HEAD CT INDICATION: Subdural hemorrhage TECHNIQUE: CT of the head without intravenous contrast. Multiplanar reformats. The examination was performed utilizing dose reduction techniques. Total DLP 901 COMPARISON: 11/18/2024 FINDINGS: No change in mixed density right cerebral convexity subdural collection measuring up to 10 mm in maximal coronal dimension. Local mass effect upon the right cerebrum is unchanged. Slight right to left midline shift is unchanged. Small subdural blood layering along the falx is similar compared to prior. No new hemorrhage, territorial infarction, or progressive mass effect. Brain parenchyma is unchanged Ventricles are stable in size. No hydrocephalus. Extracranial structures are unchanged. Impression: Stable right cerebral convexity subdural hematoma with unchanged mass effect. No new bleeding or progressive mass effect. -------- FINAL REPORT -------- Dictated By: KYLER BARRERA Dictated Date: 11/21/2024 08:43 ET Assigned Physician: KYLER BARRERA Reviewed and Electronically Signed By: KYLER BARRERA Signed Date: 11/21/2024 08:46 ET Workstation ID: [id number] Transcribed By: Self Edit Transcribed Date: 11/21/2024 08:43 ET DAILY CARE CHECKLIST Length of Stay: 05d 17h 54m VTE Prophylaxis: Heparin Resuscitation: Full Code - Default IV Access: Peripheral Tubes, Catheters, Devices: None PCP: Garcia Doran MD Disposition: Pending placement Trace Burris MD 11/26/24 12:54 PM EST * Joseph Arita RN - 11/25/2024 5:43 PM EST Problem: Cognitive: Enamorado Alexander Fall Risk Goal: Last Known Fall Outcome: Progressing Goal: Mobility requiring assistance of person or device Outcome: Progressing Goal: Dizziness Outcome: Progressing Goal: Medications Outcome: Progressing Goal: Mental Status/LOC/Awareness Outcome: Progressing Goal: Toileting Needs Outcome: Progressing Goal: Volume and Electrolyte Status Outcome: Progressing Goal: Communication/Sensory Outcome: Progressing Goal: Behavior Outcome: Progressing Problem: Sensory: Acute Pain Goal: Pain level will improve or be tolerable Outcome: Progressing Goals: Identify possible barriers to meeting goals/advancing plan of care: none Stability of the patient: Moderately Stable - Low risk of patient condition declining or worsening End of Shift Summary: Pt alert and oriented, can be wifty at times. Pt denies any pain at this time. Tolerating diet without issues. Resting comfortably at this time. * Evangelina Flowers PT - 11/25/2024 2:41 PM EST Therapy session was attempted for Isabela Rios by Evangelina Flowers PT on 11/25/2024. The patient was unable to be seen for the following reason(s): Other: pt was just readjusted in bed Plan for return visit: Tomorrow * Trace Burris MD - 11/25/2024 11:48 AM EST Images from the original note were not included. [facility] PROGRESS NOTE Date: 11/25/2024 Author: Trace Burris MD Patient ID: Isabela Rios is a 79 y.o. female : 1945 MR#: [id number] ASSESSMENT & PLAN Assessment/Plan Principal Problem: Acute subdural hematoma (CMS/HCC) Active Problems: Closed fracture of left hip (CMS/HCC) Isabela Rios is a 79 y.o. female who has PMH of HTN, hyperlipidemia, osteopenia, depression was brought to the ED after she was found on the floor. Workup in the ED showed left hip fracture and subdural hematoma. 1. Subdural hematoma Treated conservatively, no intervention recommended by neurosurgeons. CT head x 2 showed stable hematoma. Outpatient follow-up in 10-[address] head recommended. 2. Left hip fracture S/p left hip ORIF on 11/25. On prophylactic anticoagulation. Cleared for discharge by orthopedic, waiting for SNF placement. 3. UTI Patient is symptomatic, urine culture was positive for ESBL E. coli. Patient received fosfomycin. SUBJECTIVE Subjective No events overnight. Patient expressed frustration with still being in the hospital. She denied nausea, vomiting, fever, chill, chest pain, shortness of breath. Allergies Patient has no known allergies. Current Medications: acetaminophen, 1,000 mg, oral, q8h SADIE amLODIPine, 2.5 mg, oral, Daily citalopram, 30 mg, oral, Daily heparin (porcine), 5,000 Units, subcutaneous, q12h SADIE levothyroxine, 75 mcg, oral, Daily melatonin, 3 mg, oral, Nightly multivitamin, 1 tablet, oral, Daily pantoprazole, 40 mg, oral, q AM AC polyetheylene glycol, 17 g, oral, Daily senna-docusate, 2 tablet, oral, Nightly sodium chloride, 10 mL, intravenous, BID Oxygen Therapy, Adult, PRN medications: acetaminophen, hydrALAZINE, HYDROmorphone, magnesium hydroxide, naloxone, ondansetron, oxyCODONE, oxyCODONE, oxyCODONE, [COMPLETED] Insert peripheral IV AND Maintain IV access AND [COMPLETED] Saline lock IV AND sodium chloride AND sodium chloride OBJECTIVE Vitals: 11/24/24 1505 11/24/24 1949 11/25/24 0356 11/25/24 0737 BP: 117/56 115/60 (!) 140/64 104/55 BP Location: Left arm Left arm Left arm Patient Position: Sitting Lying Lying Pulse: 72 77 75 71 Resp: 16 16 16 17 Temp: 36.3 ??C (97.3 ??F) 36.5 ??C (97.7 ??F) 36.3 ??C (97.3 ??F) 36.5 ??C (97.7 ??F) TempSrc: Temporal Temporal Temporal Temporal SpO2: 97% 96% 97% 96% Weight: Height: Physical Exam Vitals and nursing note reviewed. General-alert and in no acute distress HEENT-normocephalic, atraumatic, PERRLA, MMM Neck-supple, nontender, no JVD Chest- no accessory muscle use, no crackles, no wheezing Cardiovascular-S1, S2, no murmurs, rubs or gallops, regular rate and rhythm Abdomen-soft, nontender, nondistended, no mass Extremity-clean and dry left hip dressing. No deformity, no edema Skin-no rash, no bruise, no jaundice Neurologic-alert, oriented x3, no focal deficit LABS HEMATOLOGY Lab Results Component Value Date WBC 9.7 11/25/2024 HGB 8.1 (L) 11/25/2024 HCT 25.6 (L) 11/25/2024 MCV 95.9 11/25/2024 PLT 437 (H) 11/25/2024 CHEMISTRY Lab Results Component Value Date GLUCOSE 95 11/25/2024 NA 136 11/25/2024 K 4.4 11/25/2024 CO2 30 11/25/2024 CL 104 11/25/2024 BUN 16 11/25/2024 CREATININE 0.75 11/25/2024 EGFR 82 11/25/2024 CALCIUM 8.8 11/25/2024 MG 2.0 11/15/2024 ANIONGAP 2 (L) 11/25/2024 No results found for this or any previous visit (from the past 168 hour(s)). Imaging: CT Head wo Contrast Narrative: PROCEDURE: HEAD CT INDICATION: Subdural hemorrhage TECHNIQUE: CT of the head without intravenous contrast. Multiplanar reformats. The examination was performed utilizing dose reduction techniques. Total DLP 901 COMPARISON: 11/18/2024 FINDINGS: No change in mixed density right cerebral convexity subdural collection measuring up to 10 mm in maximal coronal dimension. Local mass effect upon the right cerebrum is unchanged. Slight right to left midline shift is unchanged. Small subdural blood layering along the falx is similar compared to prior. No new hemorrhage, territorial infarction, or progressive mass effect. Brain parenchyma is unchanged Ventricles are stable in size. No hydrocephalus. Extracranial structures are unchanged. Impression: Stable right cerebral convexity subdural hematoma with unchanged mass effect. No new bleeding or progressive mass effect. -------- FINAL REPORT -------- Dictated By: KYLER BARRERA Dictated Date: 11/21/2024 08:43 ET Assigned Physician: KYLER BARRERA Reviewed and Electronically Signed By: KYLER BARRERA Signed Date: 11/21/2024 08:46 ET Workstation ID: [id number] Transcribed By: Self Edit Transcribed Date: 11/21/2024 08:43 ET DAILY CARE CHECKLIST Length of Stay: 04d 16h 48m VTE Prophylaxis: Heparin Resuscitation: Full Code - Default IV Access: Peripheral Tubes, Catheters, Devices: None PCP: Garcia Doran MD Disposition: Pending placement Trace Burris MD 11/25/24 11:48 AM EST * Amara Zhu RN - 11/25/2024 5:29 AM EST Problem: Sensory: Acute Pain Goal: Pain level will improve or be tolerable Outcome: Progressing Goals: Identify possible barriers to meeting goals/advancing plan of care: n/a Stability of the patient: Moderately Stable - Low risk of patient condition declining or worsening End of Shift Summary: Pt is A& O x 3,can be forgetful VSS. Prn pain med given.No issue overnight * Nica Ruelas RN - 11/24/2024 4:02 PM EST [facility] received a message from [facility] is offering peer to peer prior to determination. Deadline is 10:30 am 11/25/24. Please have provider call [phone] option 5. thanks Message forwarded to [facility] property disposal managerMD and Assistant In Nursing. Cameron Yen updated * Yolanda Carson RN - 11/24/2024 1:47 PM EST Goals: Ambulate and eat meals in the chair Identify possible barriers to meeting goals/advancing plan of care: None Stability of the patient: Moderately Stable - Low risk of patient condition declining or worsening End of Shift Summary: VSS. Patient ambulated with PT. Sat in the chair and ate lunch. Will continueto monitor. DC order entered. * Bridgette Zelaya - 11/24/2024 11:31 AM EST [facility] Physical Therapy Treatment PT Discharge Recommendations: Inpatient rehab facility placement, penitentiary facility placement Equipment Recommended: walker Staff Recommendations for safe patient handling: supervision/standby A for gait and transfers, needs verbal cueing Precautions Medical Precautions: Fall Risk Safety Interventions: Call burris within reach, ID band on, Chair alarm RUE Weight Bearing Status: Full LUE Weight Bearing Status: Full RLE Weight Bearing Status: Full LLE Weight Bearing Status: As Tolerated Orthopedic Precautions: Posterior Hip Precautions Orthoses Applied: (abductor pillow in bed) History of Present Illness: Patient is a 79 y.o. female admitted to [facility] on 11/14/2024 with: Patient Active Problem List Diagnosis Anxiety Depression HTN (hypertension) Hyperlipidemia Hypothyroidism Osteopenia Osteoporosis Hip fracture requiring operative repair, left, closed, initial encounter ([facility]) Acute subdural hematoma ([facility]) Fall prevention education provided including use of call light in hospital, use of appropriate assistive device, safe mobility techniques, and safety measures at home. Continue PT as per POC. Subjective I don't remember the right way to walk Objective 11/24/24 0900 PT Last Visit PT Received On 11/24/24 PT Time Calculation PT Start Time 0900 PT Stop Time 0930 PT Time Calculation (min) 30 min Precautions Medical Precautions Fall Risk Safety Interventions Call burris within reach;ID band on;Chair alarm RUE Weight Bearing Status Full LUE Weight Bearing Status Full RLE Weight Bearing Status Full LLE Weight Bearing Status As Tolerated Orthopedic Precautions Posterior Hip Precautions Oxygen Therapy Oxygen Therapy None (Room air) Pain Assessment Pain Assessment 0-10 Pain Score 5 - Moderate pain Pain Type Surgical pain Pain Location Hip Pain Orientation Left Pain Descriptors Discomfort Cognition Overall Cognitive Status WFL Arousal/Alertness Appropriate responses to stimuli Orientation Level Oriented X4 Following Commands Follows all commands and directions without difficulty Safety Judgment Decreased awareness of need for safety;Decreased awareness of need for assistance Cognition Comments impaired motor planning/sequencing Activity Tolerance Endurance Tolerates 20 - 30 min activity with multiple rests Static Sitting Balance Static Sitting-Level of Assistance Supervision Static Sitting-Balance Support Feet supported Static Standing Balance Static Standing-Level of Assistance Close supervision Static Standing-Balance Support Right upper extremity supported;Left upper extremity supported Bed Mobility Rolling Right Assistance Supervision;Moderate verbal cues Rolling Left Assistance Supervision;Moderate verbal cues Lying to Sitting Assistance Minimum assistance;Moderate verbal cues Bed Mobility Comments needs hand to help pull up - impaired sequencing, verbal cues, difficulty pulling up into bridge position Transfers Sit to Stand Assistance Contact guard;Moderate verbal cues Ambulation Walking Assistance Standby assistance;Moderate verbal cues Device Rolling walker Distance Ambulated (ft) 100 Stairs Stairs Assistance Contact guard;Maximum verbal cues Stair Management Technique/Device Two rails;Step to pattern Number of Stairs 4 Stairs Comments verbal cues for sequencing Procedures Procedures Gait Training Gait Training Gait Training Time Entry 30 Gait Training Activity 1 Pt was supine in bed upon entering room. Pt agreed to get up and needed many verbal cues to bridge up to put undies on. Pt needed Speedy to grab onto PT hand to help pull up toEOB. Pt is able to sit EOB with supervision. Pt needed verbal cues for STS and standbyA/CGA. Pt is needs mutliple times of reassurance to put weight through walker and is nervous of injuring hip. Pt walks with mod verbal cues and walker and standbyA to stairs and completes 4 stairs with max verbal cues. Pt rests for 3 min and stands up with verbal cues for hand placement. Pt ambulates back to room with less cues and walker and sits in chair with supervision. ` Gait Training Activity 2 ``` PT Assessment PT Assessment Results Decreased strength;Decreased range of motion;Decreased endurance;Impaired gait;Decreased cognition;Decreased coordination Prognosis Good Evaluation/Treatment Tolerance Patient tolerated treatment well Medical Staff Made Aware Yes Plan Treatment/Interventions LE strengthening/ROM;Gait training;Endurance training PT Plan Skilled PT PT Frequency 2-5 days per week PT Duration of Sessions 15-30 min per session PT Treatments per day 1 time per day PT Discharge Recommendations Inpatient rehab facility placement;penitentiary facility placement Equipment Recommended walker Barriers to Discharge sequencing issues PT - Evaluation Status Complete Procedure/Treatment: Procedures Procedures: Gait Training Patient left sitting up in chair. RN notified of pt. status, location, response to treatment, and therapy recommendations. Physical Therapy Assessment/Plan PT Assessment PT Assessment Results: Decreased strength, Decreased range of motion, Decreased endurance, Impairedgait, Decreased cognition, Decreased coordination Prognosis: Good Evaluation/Treatment Tolerance: Patient tolerated treatment well Comments: pt was I at [facility]; feel she is a good candidate for acute rehab Medical Staff Made Aware: Yes Plan Treatment/Interventions: LE strengthening/ROM, Gait training, Endurance training PT Plan: Skilled PT PT Frequency: 2-5 days per week PT Duration of Sessions: 15-30 min per session PT Treatments per day: 1 time per day PT Discharge Recommendations: Inpatient rehab facility placement, penitentiary facility placement Equipment Recommended: walker Barriers to Discharge: sequencing issues PT - Evaluation Status: Complete PT - OK to Discharge: Yes Physical Therapy Goals/Education Encounter Problems Encounter Problems (Active) Template: Physical Therapy Problem: PT Short Term Goals Dates: Start: 11/21/24 Goal: Pt will be able to repeat all 3 hip precautions w/o assistance. Dates: Start: 11/21/24 Expected End: 11/28/24 Outcomes Date/Time User Outcome 11/24/24 1130 Bridgette Zelaya Progressing Goal: Pt will be able to navigate 10 stairs w/CG and 2 rails and minimal cues. Dates: Start: 11/21/24 Expected End: 11/28/24 Outcomes Date/Time User Outcome 11/24/24 1130 Bridgette Zelaya Progressing Encounter Problems (Resolved) Template: Physical Therapy Problem: PT Short Term Goals Dates: Start: 11/18/24 Resolved: 11/21/24 Goal: Patient will transfer supine<>sit with min assist (Resolved) Dates: Start: 11/18/24 Expected End: 11/20/24 Resolved: 11/21/24 Outcomes Date/Time User Outcome 11/21/24 1052 Bridgette Zelaya Completed Goal: Patient will transfer sit<>stand safely with min assist of 1 (Resolved) Dates: Start: 11/18/24 Expected End: 11/21/24 Resolved: 11/20/24 Outcomes Date/Time User Outcome 11/20/24 1325 Bridgette Zelaya Completed Goal: Patient will transfer supine<>sit with min assist (Resolved) Dates: Start: 11/19/24 Expected End: 11/21/24 Resolved: 11/21/24 Outcomes Date/Time User Outcome 11/21/24 1052 Bridgette Zelaya Completed Goal: Patient will transfer sit<>stand safely , min assist (Resolved) Dates: Start: 11/19/24 Expected End: 11/24/24 Resolved: 11/20/24 Outcomes Date/Time User Outcome 11/20/24 1325 Bridgette Zelaya Completed Education Documentation Precautions, taught by Bridgette Zelaya at 11/24/2024 11:29 AM. Learner: Patient Readiness: Acceptance Method: Explanation, Demonstration Response: Verbalizes Understanding, Demonstrated Understanding, Needs Reinforcement Comment: remembers 1/3 hip precautions and can demonstrate 1/3 HEP Home Exercise Program, taught by Bridgette Zelaya at 11/24/2024 11:29 AM. Learner: Patient Readiness: Acceptance Method: Explanation, Demonstration Response: Verbalizes Understanding, Demonstrated Understanding, Needs Reinforcement Comment: remembers 1/3 hip precautions and can demonstrate 1/3 HEP Mobility Training, taught by Bridgette Zelaya at 11/24/2024 11:29 AM. Learner: Patient Readiness: Acceptance Method: Explanation, Demonstration Response: Verbalizes Understanding, Demonstrated Understanding, Needs Reinforcement Comment: remembers 1/3 hip precautions and can demonstrate 1/3 HEP Education Comments No comments found. Bridgette Zelaya Associated attestation - Moni Diana PT - 11/24/2024 12:09 PM EST PT was integrally and physically involved in the decision making, delivery of interventions and ongoing assessment during the patient's care session . * Amara Zhu RN - 11/24/2024 4:33 AM EST Problem: Sensory: Acute Pain Goal: Pain level will improve or be tolerable Outcome: Progressing Goal: Ability to develop a pain control plan will improve Outcome: Progressing Goals: Identify possible barriers to meeting goals/advancing plan of care: placement Stability of the patient: Moderately Stable - Low risk of patient condition declining or worsening End of Shift Summary: Patient alert and oriented, however can be forgetful. Prn pain meds given. Noissue overnight * Saundra Bucio MD - 11/23/2024 3:51 PM EST Images from the original note were not included. SELAM PROGRESS NOTE Date: 11/23/2024 Author: Saundra Bucio MD Patient ID: Isabela Rios is a 79 y.o. female : 1945 MR#: [id number] SUBJECTIVE CC: Here after fall resulting in subdural hematoma and left hip fracture. She feels better, she slept well and eating breakfast, would like to keep up with pain pills beforeits too late. Daughter Rachel Bernard and her nurse Michelle at the bedside, care reviewed. Ready for rehab once bed confirmed/approved by her insurance. ROS: NO fever or chills. OBJECTIVE Vitals: 11/23/24 1430 BP: 131/65 Pulse: 77 Resp: 16 Temp: 36.6 ??C (97.8 ??F) SpO2: 100% Physical exam: General: fatigued, not in distress CVS: S1-S2 Resp: Clear lung Abd: NT, soft. Extr: Without peripheral edema, L hip dressing+ Neuro: Awake and alert, face is symmetric, moves all extremities with equal power Current Medications: acetaminophen, 1,000 mg, oral, q8h SADIE amLODIPine, 2.5 mg, oral, Daily citalopram, 30 mg, oral, Daily heparin (porcine), 5,000 Units, subcutaneous, q12h SADIE levothyroxine, 75 mcg, oral, Daily melatonin, 3 mg, oral, Nightly multivitamin, 1 tablet, oral, Daily pantoprazole, 40 mg, oral, q AM AC polyetheylene glycol, 17 g, oral, Daily senna-docusate, 2 tablet, oral, Nightly sodium chloride, 10 mL, intravenous, BID Oxygen Therapy, Adult, PRN medications: acetaminophen, hydrALAZINE, HYDROmorphone, magnesium hydroxide, naloxone, ondansetron, oxyCODONE, oxyCODONE, oxyCODONE, [COMPLETED] Insert peripheral IV AND Maintain IV access AND [COMPLETED] Saline lock IV AND sodium chloride AND sodium chloride HEMATOLOGY Lab Results Component Value Date WBC 9.4 11/23/2024 HGB 8.7 (L) 11/23/2024 HCT 27.2 (L) 11/23/2024 MCV 96.5 11/23/2024 PLT 345 11/23/2024 INR 1.0 11/14/2024 CHEMISTRY Lab Results Component Value Date GLUCOSE 89 11/23/2024 NA 139 11/23/2024 K 4.2 11/23/2024 CO2 29 11/23/2024 CL 106 11/23/2024 BUN 15 11/23/2024 CREATININE 0.64 11/23/2024 EGFR 91 11/23/2024 CALCIUM 8.9 11/23/2024 MG 2.0 11/15/2024 ANIONGAP 4 11/23/2024 Imaging: CT Head wo Contrast Narrative: PROCEDURE: HEAD CT INDICATION: Subdural hemorrhage TECHNIQUE: CT of the head without intravenous contrast. Multiplanar reformats. The examination was performed utilizing dose reduction techniques. Total DLP 901 COMPARISON: 11/18/2024 FINDINGS: No change in mixed density right cerebral convexity subdural collection measuring up to 10 mm in maximal coronal dimension. Local mass effect upon the right cerebrum is unchanged. Slight right to left midline shift is unchanged. Small subdural blood layering along the falx is similar compared to prior. No new hemorrhage, territorial infarction, or progressive mass effect. Brain parenchyma is unchanged Ventricles are stable in size. No hydrocephalus. Extracranial structures are unchanged. Impression: Stable right cerebral convexity subdural hematoma with unchanged mass effect. No new bleeding or progressive mass effect. -------- FINAL REPORT -------- Dictated By: KYLER BARRERA Dictated Date: 11/21/2024 08:43 ET Assigned Physician: KYLER BARRERA Reviewed and Electronically Signed By: KYLER BARRERA Signed Date: 11/21/2024 08:46 ET Workstation ID: [id number] Transcribed By: Self Edit Transcribed Date: 11/21/2024 08:43 ET ASSESSMENT & PLAN Isabela Rios is a 79 y.o. female with PMH of HTN hyperlipidemia, hypothyroidism, osteopenia, depression/anxiety, brought into ED after she was found down on the kitchen floor by her , reportedly she was wandering at night and fell also she could not recall the circumstances, she was noted to be confused and agitated in ED requiring soft restraints. At the baseline she did not use any assistive device for ambulation but frequent falls reported prior to this event. In ED she was afebrile and hemodynamically stable. CBC with mild leukocytosis with WBC 11.6 hemoglobin 12.3, BUN 24 creatinine 0.9 TSH was elevated at 48, respiratory viral panel was negative, EKG showed normal sinus rhythm with nonspecific T wave abnormality QTc 495, CT head revealed 8 mm subduralhematoma along the right convexity. X-ray of the left hip revealed acute transcervical femoral neckfracture. CT left lower extremity confirmed impacted and angulated left femoral neck fracture. Chest x-ray was suspicious for pulmonary vascular congestion. High sensitive troponin 10 x 10, CK was 668. UA was abnormal with proteinuria trace ketones moderate blood 28 WBCs 9 RBCs and many bacteria. She was admitted. Neurosurgery and orthopedic surgery consulted. For subdural conservative management was recommended, repeat CT head remained stable. Left hip fracture repair planned for today. Of note, she was noted to be hypoxic on the morning of 11/16/2024 with oxygen saturation 85% she wasplaced on O2 and CTA was obtained which did not demonstrate evidence of PE. Small bilateral pleuraleffusions noted. She underwent left hip hemiarthroplasty on 11/17/2024. On postoperative day 1 discussion was held with the patient and family and prophylactic anticoagulation was initiated. CT head was repeated on 11/21/2024 and it proved stability of subdural hematoma. Neurological status also stable. Acute rehab was recommended and she is awaiting insurance authorization. # SDH - treated conservatively as recommended by neurosurgery and initial CT headx2 stable. After hip surgery DVT prophylaxis was recommended, orthopedic team reviewed with neurosurgery and held discussion with patient and family-it was decided to start her on small dose of heparin prophylaxis and monitor her neurological status closely with repeat CT head in 48 hours. She is doing well currently with no new neurological findings. Repeat CT head on 11/21/2024 - stable. Neurosurgery recommending to follow up in the office with repeat CT in 10-14 days. # Acute encephalopathy, dysarthria-likely due to subdural hematoma/? UTI and acute hospitalization contributing. Some improvement noted by family. MRI lucille did not reveal acute CVA. Full report as above. It did demonstrate additional smaller size subdural hematoma along the interhemispheric falx measuring 2 mm, original subdural hematoma proximately 10 mm in size. Overall mental status is much improved and speech is also better, she has occasional word finding difficulties, some disorientation at times. # Left hip fracture - s/p L hip hemiarthroplasty on 11/17/[address] Hester. # Probable UTI - urine culture with ESBL Eoli, resistant to quinolones.. Ceftriaxone stopped and she was administered 1 dose of fosfomycin. HTN -reportedly Norvasc was recently discontinued by PCP due to low blood pressure. Blood pressure was elevated on the morning of 11/17 with systolic 180 and initiated her on small dose of amlodipine 2.5 with as needed hydralazine. Monitor BP closely and adjust as needed. Hypothyroidism -TSH is elevated, Synthroid dose was increased on admission to 75 mcg daily(from 50). Compliance was questioned. This was reviewed with the patient and family. She will need outpatientmonitoring. Depression anxiety -she is on Celexa. Anemia?ACD - component of acute blood loss from surgery likely contributing. Monitor. Mild hypokalemia - replaced, resolved. DVT ppx -SCD, heparin 5000 units twice daily while carefully monitoring neurological status - stable so far with repeat imaging also stable.Ortho recommends 4-6 weeks anticoagulation if all stable. Code status - presumed full Dispo - PT eval --- will need rehab. Placement pending. HCP - daughter Rachel Bernard and Tucker. Rachel Bernard at [phone] - I met her at the bedside and care reviewed. * Michelle Muñoz RN - 11/23/2024 10:04 AM EST Problem: Safety: Restraint-Nonviolent; Risk of Injury to Self Goal: Will remain free from injury to self Outcome: Completed Goals: Identify possible barriers to meeting goals/advancing plan of care: insurance authorization Stability of the patient: Moderately Stable - Low risk of patient condition declining or worsening End of Shift Summary: Patient alert and oriented, however can be forgetful and impulsive. Daughter at bedside this am. Cooperative with plan of care and medications. Denies pain at this time - educated patient and family on acute pain management. Able to make needs known. Care ongoing at this time * Amara Zhu RN - 11/23/2024 6:49 AM EST Problem: Sensory: Acute Pain Goal: Pain level will improve or be tolerable Outcome: Progressing Goal: Ability to develop a pain control plan will improve Outcome: Progressing Goals: Identify possible barriers to meeting goals/advancing plan of care: placement Stability of the patient: Moderately Stable - Low risk of patient condition declining or worsening End of Shift Summary: Pt is alert but forgetful, VSS .prn pain medication given, pt is currently resting with call light within reach. Daughter at bedside * Saundra Bucio MD - 11/22/2024 1:45 PM EST Images from the original note were not included. SELAM PROGRESS NOTE Date: 11/22/2024 Author: Saundra Bucio MD Patient ID: Isabela Rios is a 79 y.o. female : 1945 MR#: [id number] SUBJECTIVE CC: Here after fall resulting in subdural hematoma and left hip fracture. She reports feeling ok, denies pain, just tired from being here, but happy with the care. She understands the plan is for rehab and awaiting insurance authorization. ROS: As above OBJECTIVE Vitals: 11/22/24 0731 BP: 121/68 Pulse: 72 Resp: 16 Temp: 36.4 ??C (97.6 ??F) SpO2: 98% Physical exam: General: fatigued, not in distress CVS: S1-S2 Resp: Clear lung Abd: NT, soft. Extr: Without peripheral edema, L hip dressing+ Neuro: Awake and alert, face is symmetric, moves all extremities with equal power Current Medications: acetaminophen, 1,000 mg, oral, q8h SADIE amLODIPine, 2.5 mg, oral, Daily citalopram, 30 mg, oral, Daily heparin (porcine), 5,000 Units, subcutaneous, q12h SADIE levothyroxine, 75 mcg, oral, Daily melatonin, 3 mg, oral, Nightly multivitamin, 1 tablet, oral, Daily pantoprazole, 40 mg, oral, q AM AC polyetheylene glycol, 17 g, oral, Daily senna-docusate, 2 tablet, oral, Nightly sodium chloride, 10 mL, intravenous, BID Oxygen Therapy, Adult, PRN medications: acetaminophen, hydrALAZINE, HYDROmorphone, magnesium hydroxide, naloxone, ondansetron, oxyCODONE, oxyCODONE, oxyCODONE, [COMPLETED] Insert peripheral IV AND Maintain IV access AND [COMPLETED] Saline lock IV AND sodium chloride AND sodium chloride HEMATOLOGY Lab Results Component Value Date WBC 8.6 11/22/2024 HGB 8.3 (L) 11/22/2024 HCT 25.9 (L) 11/22/2024 MCV 96.6 11/22/2024 PLT 273 11/22/2024 INR 1.0 11/14/2024 CHEMISTRY Lab Results Component Value Date GLUCOSE 98 11/22/2024 NA 139 11/22/2024 K 4.9 11/22/2024 CO2 31 11/22/2024 CL 106 11/22/2024 BUN 17 11/22/2024 CREATININE 0.64 11/22/2024 EGFR 91 11/22/2024 CALCIUM 8.5 11/22/2024 MG 2.0 11/15/2024 ANIONGAP 2 (L) 11/22/2024 Imaging: CT Head wo Contrast Narrative: PROCEDURE: HEAD CT INDICATION: Subdural hemorrhage TECHNIQUE: CT of the head without intravenous contrast. Multiplanar reformats. The examination was performed utilizing dose reduction techniques. Total DLP 901 COMPARISON: 11/18/2024 FINDINGS: No change in mixed density right cerebral convexity subdural collection measuring up to 10 mm in maximal coronal dimension. Local mass effect upon the right cerebrum is unchanged. Slight right to left midline shift is unchanged. Small subdural blood layering along the falx is similar compared to prior. No new hemorrhage, territorial infarction, or progressive mass effect. Brain parenchyma is unchanged Ventricles are stable in size. No hydrocephalus. Extracranial structures are unchanged. Impression: Stable right cerebral convexity subdural hematoma with unchanged mass effect. No new bleeding or progressive mass effect. -------- FINAL REPORT -------- Dictated By: KYLER BARRERA Dictated Date: 11/21/2024 08:43 ET Assigned Physician: KYLER BARRERA Reviewed and Electronically Signed By: KYLER BARRERA Signed Date: 11/21/2024 08:46 ET Workstation ID: [id number] Transcribed By: Self Edit Transcribed Date: 11/21/2024 08:43 ET ASSESSMENT & PLAN Isabela Rios is a 79 y.o. female with PMH of HTN hyperlipidemia, hypothyroidism, osteopenia, depression/anxiety, brought into ED after she was found down on the kitchen floor by her , reportedly she was wandering at night and fell also she could not recall the circumstances, she was noted to be confused and agitated in ED requiring soft restraints. At the baseline she did not use any assistive device for ambulation but frequent falls reported prior to this event. In ED she was afebrile and hemodynamically stable. CBC with mild leukocytosis with WBC 11.6 hemoglobin 12.3, BUN 24 creatinine 0.9 TSH was elevated at 48, respiratory viral panel was negative, EKG showed normal sinus rhythm with nonspecific T wave abnormality QTc 495, CT head revealed 8 mm subduralhematoma along the right convexity. X-ray of the left hip revealed acute transcervical femoral neckfracture. CT left lower extremity confirmed impacted and angulated left femoral neck fracture. Chest x-ray was suspicious for pulmonary vascular congestion. High sensitive troponin 10 x 10, CK was 668. UA was abnormal with proteinuria trace ketones moderate blood 28 WBCs 9 RBCs and many bacteria. She was admitted. Neurosurgery and orthopedic surgery consulted. For subdural conservative management was recommended, repeat CT head remained stable. Left hip fracture repair planned for today. Of note, she was noted to be hypoxic on the morning of 11/16/2024 with oxygen saturation 85% she wasplaced on O2 and CTA was obtained which did not demonstrate evidence of PE. Small bilateral pleuraleffusions noted. She underwent left hip hemiarthroplasty on 11/17/2024. On postoperative day 1 discussion was held with patient and family and prophylactic anticoagulation was initiated. CT head was repeated on 11/21/2024 and proved stability of subdural hematoma. Neurological status also stable. Acute rehab was recommended and she is awaiting insurance authorization. # SDH - treated conservatively as recommended by neurosurgery and initial CT headx2 stable. After hip surgery DVT prophylaxis was recommended, orthopedic team reviewed with neurosurgery and held discussion with patient and family-it was decided to start her on small dose of heparin prophylaxis and monitor her neurological status closely with repeat CT head in 48 hours. She is doing well currently with no new neurological findings. Repeat CT head on 11/21/2024 - stable. Neurosurgery recommending to follow up in the office with repeat CT in 10-14 days. # Acute encephalopathy, dysarthria-likely due to subdural hematoma/? UTI and acute hospitalization contributing. Some improvement noted by family. MRI lucille did not reveal acute CVA. Full report as above. It did demonstrate additional smaller size subdural hematoma along the interhemispheric falx measuring 2 mm, original subdural hematoma proximately 10 mm in size. Overall mental status is much improved and speech is also better, she has occasional word finding difficulties, some disorientation at times. # Left hip fracture - s/p L hip hemiarthroplasty on 11/17/[address] Hester. # Probable UTI - urine culture with ESBL Eoli, resistant to quinolones.. Ceftriaxone stopped and she was administered 1 dose of fosfomycin. HTN -reportedly Norvasc was recently discontinued by PCP due to low blood pressure. Blood pressure was elevated on the morning of 11/17 with systolic 180 and initiated her on small dose of amlodipine 2.5 with as needed hydralazine. Monitor BP closely and adjust as needed. Hypothyroidism -TSH is elevated, Synthroid dose was increased on admission to 75 mcg daily(from 50). Compliance was questioned. This was reviewed with the patient and family. She will need outpatientmonitoring. Depression anxiety -she is on Celexa. Anemia?ACD - component of acute blood loss from surgery likely contributing. Monitor. Mild hypokalemia - replaced, resolved. DVT ppx -SCD, heparin 5000 units twice daily while carefully monitoring neurological status - stable so far with repeat imaging also stable.Ortho recommends 4-6 weeks anticoagulation if all stable. Code status - presumed full Dispo - PT eval --- will need rehab. Placement pending. HCP - daughter Rachel Bernard and Tucker. I called Rachel Bernard at [phone] and left the message. * Evangelina Flowers, PT - 11/22/2024 10:13 AM EST [facility] Physical Therapy Treatment PT Discharge Recommendations: penitentiary facility placement, Inpatient rehab facility placement Equipment Recommended: walker Staff Recommendations for safe patient handlin person assist with walker Precautions Medical Precautions: Fall Risk Safety Interventions: Call burris within reach, ID band on, Chair alarm RUE Weight Bearing Status: Full LUE Weight Bearing Status: Full RLE Weight Bearing Status: Full LLE Weight Bearing Status: As Tolerated Orthopedic Precautions: Posterior Hip Precautions Orthoses Applied: (abductor pillow in bed) History of Present Illness: Patient is a 79 y.o. female admitted to [facility] on 11/14/2024 with: Patient Active Problem List Diagnosis Anxiety Depression HTN (hypertension) Hyperlipidemia Hypothyroidism Osteopenia Osteoporosis Hip fracture requiring operative repair, left, closed, initial encounter ([facility]) Acute subdural hematoma ([facility]) Fall prevention education provided including use of call light in hospital, use of appropriate assistive device, safe mobility techniques, and safety measures at home. Continue PT as per POC. Subjective I have to tell you something that happened last night. Objective 11/22/24 0845 PT Last Visit PT Received On 11/22/24 PT Time Calculation PT Start Time 0845 PT Stop Time 0930 PT Time Calculation (min) 45 min Precautions Medical Precautions Fall Risk Safety Interventions Call burris within reach;ID band on;Chair alarm RUE Weight Bearing Status Full LUE Weight Bearing Status Full RLE Weight Bearing Status Full LLE Weight Bearing Status As Tolerated Orthopedic Precautions Posterior Hip Precautions Cognition Overall Cognitive Status Impaired Arousal/Alertness Appropriate responses to stimuli Orientation Level Able to orient with prompts;Disoriented to time;Disoriented to person Following Commands Follows one step commands consistently Safety Judgment Decreased awareness of need for assistance;Decreased awareness of need for safety Static Sitting Balance Static Sitting-Level of Assistance Standby assistance Static Standing Balance Static Standing-Level of Assistance Contact guard Bed Mobility Rolling Right Assistance Minimum assistance Lying to Sitting Assistance Contact guard Transfers Sit to Stand Assistance Minimum assistance Bed to/from Chair Transfer Technique Ambulating Toilet Transfer Assistance Minimum assistance Toilet Transfer Technique Ambulating Ambulation Walking Assistance Contact guard;Minimum assistance Device Rolling walker Pattern (Pt amb with antalgic gait on the L , dec step length, needed VC for safety and reminders for post prec AND NO CARRY OVER) Distance Ambulated (ft) 40 Comments 2x20 RUE Assessment RUE Assessment Within Functional Limits LUE Assessment LUE Assessment Within Functional Limits RLE Assessment RLE Assessment Within Functional Limits LLE Assessment LLE Assessment Impaired LLE Assessment Comments 2-/5 Procedures Procedures Gait Training;Therapeutic Activity Gait Training Gait Training Time Entry 15 Therapeutic Activity Therapeutic Activity Time Entry 30 PT Assessment PT Assessment Results Decreased strength;Decreased range of motion;Decreased endurance;Impaired balance;Impaired gait;Decreased mobility;Decreased cognition;Impaired judgement;Decreased safety awareness Prognosis Good Evaluation/Treatment Tolerance Patient tolerated treatment well Medical Staff Made Aware Yes Plan PT Plan Skilled PT PT Frequency 2-5 days per week PT Duration of Sessions 15-30 min per session PT Treatments per day 1 time per day PT Discharge Recommendations penitentiary facility placement;Inpatient rehab facility placement PT - Evaluation Status Complete PT - OK to Discharge Yes Procedure/Treatment: Procedures Procedures: Gait Training, Therapeutic Activity Gait Training Gait Training Time Entry: 15 Gait Training Activity 1: Pt needed Speedy to help sit up out of bed and CG to perform STS to walker.Pt is worried she is going to hurt herself more, so needs many cues/reassurance during turning/walking. Pt walks 50 ft with CG and walker to stairs. Pt performed 4 stairs with CG and felt lightheaded/dizzy from anxiety on stairs so sat for 5 min break. Pt performed STS with CG to walker and ambulated 50 ft back to room and sits in chair with cues to back up legs to chair and reach for chair. Pt needs less cueing and ambulates more smoothly on the way back. Therapeutic Exercise Therapeutic Exercise Time Entry: 15 Therapeutic Exercise Activity 1: 10x LAQ, 10 seated marches, 20x ankle pumps Therapeutic Activity Therapeutic Activity Time Entry: 30 Other Activity Other Activity 1: bed mobility training with focus on post hip precautions: (max assist for supine<->sitting but increased participation) Other Activity 2: scooting to EOB: min assist Other Activity 3: sit to stand transfers with focus on postural control/balance vcs to straighten knees and push down on handles. Other Activity 4: standing supported at rwalker, with mod assist for stability and postural control, for intervals up to 45 seconds Other Activity 5: ambulation: side stepping to either side and forwards/backwards (extensive vcs and assist.) Patient left sitting up in chair. RN notified of pt. status, location, response to treatment, and therapy recommendations. Physical Therapy Assessment/Plan PT Assessment PT Assessment Results: Decreased strength, Decreased range of motion, Decreased endurance, Impairedbalance, Impaired gait, Decreased mobility, Decreased cognition, Impaired judgement, Decreased safety awareness Prognosis: Good Evaluation/Treatment Tolerance: Patient tolerated treatment well Comments: pt was I at [facility]; feel she is a good candidate for acute rehab Medical Staff Made Aware: Yes Plan Treatment/Interventions: LE strengthening/ROM, Endurance training, Gait training PT Plan: Skilled PT PT Frequency: 2-5 days per week PT Duration of Sessions: 15-30 min per session PT Treatments per day: 1 time per day PT Discharge Recommendations: penitentiary facility placement, Inpatient rehab facility placement Equipment Recommended: walker Barriers to Discharge: ability to remember precautions, do more stairs PT - Evaluation Status: Complete PT - OK to Discharge: Yes Physical Therapy Goals/Education Encounter Problems Encounter Problems (Active) Template: Physical Therapy Problem: PT Short Term Goals Dates: Start: 11/21/24 Goal: Pt will be able to repeat all 3 hip precautions w/o assistance. Dates: Start: 11/21/24 Expected End: 11/28/24 Outcomes Date/Time User Outcome 11/22/24 1010 Evangelina Flowers PT Not Progressing Goal: Pt will be able to navigate 10 stairs w/CG and 2 rails and minimal cues. Dates: Start: 11/21/24 Expected End: 11/28/24 Outcomes Date/Time User Outcome 11/22/24 1010 Evangelina Flowers PT Progressing Encounter Problems (Resolved) Template: Physical Therapy Problem: PT Short Term Goals Dates: Start: 11/18/24 Resolved: 11/21/24 Goal: Patient will transfer supine<>sit with min assist (Resolved) Dates: Start: 11/18/24 Expected End: 11/20/24 Resolved: 11/21/24 Outcomes Date/Time User Outcome 11/21/24 1052 Bridgette Zelaya Completed Goal: Patient will transfer sit<>stand safely with min assist of 1 (Resolved) Dates: Start: 11/18/24 Expected End: 11/21/24 Resolved: 11/20/24 Outcomes Date/Time User Outcome 11/20/24 1325 Bridgette Zelaya Completed Goal: Patient will transfer supine<>sit with min assist (Resolved) Dates: Start: 11/19/24 Expected End: 11/21/24 Resolved: 11/21/24 Outcomes Date/Time User Outcome 11/21/24 1052 Bridgette Zelaya Completed Goal: Patient will transfer sit<>stand safely , min assist (Resolved) Dates: Start: 11/19/24 Expected End: 11/24/24 Resolved: 11/20/24 Outcomes Date/Time User Outcome 11/20/24 1325 Bridgette Zelaya Completed Education Documentation Precautions, taught by Evangelina Flowers PT at 11/22/2024 10:10 AM. Learner: Patient Readiness: Acceptance Method: Explanation, Demonstration, Cognitively Impaired Response: Verbalizes Understanding, Demonstrated Understanding, Needs Reinforcement, Cognitively Impaired Comment: only able to recall 1/3 prec and was seen crossing her legs in bed.I told her immedicatelyto stop and she did,crossed R over L but still reminded not to do that at all. RN notfied that she will need somethign between her legs if the hip wedge is too hot Home Exercise Program, taught by Evangelina Flowers PT at 11/22/2024 10:10 AM. Learner: Patient Readiness: Acceptance Method: Explanation, Demonstration, Cognitively Impaired Response: Verbalizes Understanding, Demonstrated Understanding, Needs Reinforcement, Cognitively Impaired Comment: only able to recall 1/3 prec and was seen crossing her legs in bed.I told her immedicatelyto stop and she did,crossed R over L but still reminded not to do that at all. RN notfied that she will need somethign between her legs if the hip wedge is too hot Mobility Training, taught by Evangelina Flowers PT at 11/22/2024 10:10 AM. Learner: Patient Readiness: Acceptance Method: Explanation, Demonstration, Cognitively Impaired Response: Verbalizes Understanding, Demonstrated Understanding, Needs Reinforcement, Cognitively Impaired Comment: only able to recall 1/3 prec and was seen crossing her legs in bed.I told her immedicatelyto stop and she did,crossed R over L but still reminded not to do that at all. RN notfied that she will need somethign between her legs if the hip wedge is too hot Education Comments No comments found. Evangelina Flowers PT * Kathleen Martins, OT - 11/22/2024 9:00 AM EST [facility] Occupational Therapy Treatment Note DATE: Friday November 22, 2024 TIME IN: 0900 TIME OUT: 0945 Pt: Isabela Rios [id number] DISCHARGE RECS: penitentiary facility placement, Inpatient rehab facility placement EQUIPMENT RECS: Walker-rolling (drupal php developer, sock aid) SAFE PT HANDLING REC FOR STAFF: 1 person min assist PRECAUTIONS: Precautions Medical Precautions: Fall Risk Safety Interventions: Call burris within reach, ID band on, Chair alarm RUE Weight Bearing Status: Full LUE Weight Bearing Status: Full RLE Weight Bearing Status: Full LLE Weight Bearing Status: As Tolerated Orthopedic Precautions: Posterior Hip Precautions ASSESSMENT: Pt participated in skilled OT session today. Patient engaged in self care tasks. Patient was most limited today by pain in L hip. Patient verbalized understanding to education provided and responded appropriately to cues. Patient would continue to benefit from skilled acute care OT to address ADLs, standing balance, sit to stands, maintaining posterior hip precautions during daily tasks, fxnl mobility, pain management, AE education. Subjective I have them written down (referring to posterior hip precautions) Objective 11/22/24 1200 OT Last Visit OT Received On 11/22/24 General Family/Caregiver Present No OT Time Calculation OT Start Time 0900 OT Stop Time 0945 OT Time Calculation (min) 45 min Precautions Medical Precautions Fall Risk Safety Interventions Call burris within reach;ID band on;Chair alarm RUE Weight Bearing Status Full LUE Weight Bearing Status Full RLE Weight Bearing Status Full LLE Weight Bearing Status As Tolerated Orthopedic Precautions Posterior Hip Precautions Vital Signs Patient Identification Yes Pain Assessment Pain Assessment 0-10 Pain Score 6 Pain Type Surgical pain Pain Location Hip Pain Orientation Left ADLs/IADLs Self Care/Home Management (ADLs) Time Entry 45 Other Activity Other Activity 1 Upon approach, pt with king LEs crossed and abductor wedge not in place. Pt educated on importance of abductor wedge and maintaining posterior hip precautions t/o daily tasks including when in bed. Pt completed bed mobility with min assist to slightly lift L LE to EOB with verbal cues for redirection to task. Pt sat EOB for approx 5 minutes with SPV for safety. Pt completed sit tostand to RW with min assist for more than steadying assist. Pt completed fxnl mobility with RW to bathroom approx 20 ft with min assist for more than steadying assist with verbal cues for RW management along with not twisting L LE during multidirectional movements. pt completed toilet txfer with raised toilet seat with min assist for more than steadying assist. Pt completed toileting tasks with max assist. Pt had a bowel movement during this time in which Nurse Kayla was updated and aware. Ptcompleted fxnl mobility to sink approx 5 ft with RW with min assist for more than steadying assist.Pt washed hands standing at sink without UE support with CGA for steadying assist. pt completed fxnl mobilied to bedside chair with RW with min assist approx 15 ft with verbal cues for RW management.Pt sat in bedside chair with min assist. Pt educated on foot placement of L LE when completing transitional movements in order to maintain posterior hip precautions. Posterior hip precautions writtenon paper for pt. Continued education on posteiror hip precautions is recommended along with implementing them during ADL tasks and OOB tasks. Chair alarm activated. Call burris left within reach. OT Assessment OT Assessment Results Decreased ADL status;Decreased safe judgment during ADL;Decreased endurance;Decreased fine motor control;Decreased functional mobility;Decreased IADLs;Decreased gross motor control Prognosis Good Evaluation/Treatment Tolerance Patient limited by pain Plan Treatment Interventions Functional transfer training;ADL retraining;Endurance training;UE strengthening/ROM OT Plan Skilled OT OT Frequency 2-5 days per week OT Duration of Sessions 30-60 min per session OT Treatments per day 1 time per day OT - Evaluation Status Complete OT Discharge Recommendations penitentiary facility placement;Inpatient rehab facility placement Equipment Recommended Walker-rolling (drupal php developer, sock aid) ADDITIONAL COMMENTS: Chart reviewed. RN clears pt for session. Pt agrees to participate and received supine with HOB elevated. All lines in place. Medical precautions observed appropriately. Patient educated on Role of OT, Hip Precautions, and ADL Techniques and Safety . Fair verbal understanding and return demonstration. Additional education and training recommended. EXIT STATUS: Session ended with patient sitting in chair. Needs in reach. RN notified. Assessment & Plan EDUCATION Education Documentation Body Mechanics, taught by Kathleen Martins OT at 11/22/2024 12:10 PM. Learner: Patient Readiness: Acceptance Method: Explanation Response: Needs Reinforcement Comment: Pt educated on importanc eof abductor wedge and maintaining posterior hip precautions during daily tasks. Precautions, taught by Kathleen Martins OT at 11/22/2024 12:10 PM. Learner: Patient Readiness: Acceptance Method: Explanation Response: Needs Reinforcement Comment: Pt educated on importanc eof abductor wedge and maintaining posterior hip precautions during daily tasks. Education Comments No comments found. Encounter Problems Encounter Problems (Active) Template: Occupational Therapy Problem: OT Short Term Goals Dates: Start: 11/20/24 Goal: OT STG 1 Dates: Start: 11/20/24 Expected End: 11/25/24 Goal Note filed on 11/20/24 1538 by Magnolia Lincoln OT Pt will complete toileting with max A with RW use Goal: pt will complete lower body dressing task AE PRN min assist Dates: Start: 11/21/24 Expected End: 11/28/24 Goal: pt will complete toilet txfer with RW CGA Dates: Start: 11/21/24 Expected End: 11/28/24 Encounter Problems (Resolved) There are no resolved problems. Kathleen Martins OT * Aditi Christina RN - 11/22/2024 3:42 AM EST Problem: Safety: Restraint-Nonviolent; Risk of Injury to Self Goal: Will be restraint free Outcome: Progressing Goal: Will remain free from injury to self Outcome: Progressing Problem: Coping: Restraint-Nonviolent; Risk of Injury to Self Goal: Ability to identify and alter behaviors that are impeding coping will improve Outcome: Progressing Problem: Cognitive: Restraint-Nonviolent; Risk of Injury to Self Goal: Patient/caregiver knowledge of restraint will improve Outcome: Progressing Problem: Physical Regulation: Restraint-Nonviolent; Risk of Injury to Self Goal: Will remain free from complications related to use of restraints Outcome: Progressing Problem: Patient Specific Problem: Restraint-Nonviolent; Risk of Injury to Self Goal: Patient Specific Outcome Outcome: Progressing Problem: Cognitive: [place] Fall Risk Goal: Last Known Fall Outcome: Progressing Goal: Mobility requiring assistance of person or device Outcome: Progressing Goal: Dizziness Outcome: Progressing Goal: Medications Outcome: Progressing Goal: Mental Status/LOC/Awareness Outcome: Progressing Goal: Toileting Needs Outcome: Progressing Goal: Volume and Electrolyte Status Outcome: Progressing Goal: Communication/Sensory Outcome: Progressing Goal: Behavior Outcome: Progressing Problem: Skin Integrity: Pressure Injury Actual or Risk of Goal: Will not develop new pressure injury Outcome: Progressing Goal: Skin integrity will improve Outcome: Progressing Goal: Risk for impaired skin integrity will decrease Outcome: Progressing Problem: Activity:Pressure Injury Actual or Risk of Goal: Mobility will improve Outcome: Progressing Problem: Nutritional:Pressure Injury Actual or Risk of Goal: Nutritional status will improve Outcome: Progressing Problem: Patient Specific Problem: Pressure Injury Actual or Risk of Goal: Patient Specific Outcome Outcome: Progressing Problem: Cognitive: Infection Risk of Goal: Understanding of ways to prevent infection will improve Outcome: Progressing Problem: Physical Regulation:Infection Risk Of Goal: Will remain free from infection Outcome: Progressing Problem: Skin Integrity:Infection Risk Of Goal: Demonstrates signs of wound healing without infection Outcome: Progressing Problem: Patient Specific Problem:Infection Risk of Goal: Patient Specific Outcome Outcome: Progressing Goals: Identify possible barriers to meeting goals/advancing plan of care: Stability of the patient: Moderately Stable - Low risk of patient condition declining or worsening End of Shift Summary: Pt is alert but confused, Pt is compliant with all nursing care, earlier in the shift the pt was upset but she was able to be redirected and settled down. Pt complained of pain and prn pain medication given, pt is currently resting with call light within reach. * Shana Gomez, KELVIN - 11/21/2024 4:42 PM EST 11/21/2024 @ 4:42 PM EST Nutrition Follow Up Note Reason for RD Intervention: Assessment Type: Follow-up Reason for Assessment: High MST Score Anthropometrics: Height: 165.1 cm (65 ) Weight: 65.8 kg (144 lb 15.9 oz) Weight Method: Actual (bed scale) BMI (Calculated): 24.1 BMI Class: Normal Current Diet and Supplements: Dietary Orders (From admission, onward) Start Ordered 11/17/24 1503 Adult diet [facility]; Modified Consistency Options for Liquidsand Solids, General; Regular; IDDSI Level 7 Easy to Chew (Order Panel) Diet effective now Question Answer Comment Location [facility] Diet Type (req) Modified Consistency Options for Liquids and Solids Diet Type (req) General General Diet Regular Modified Consistency Options for Liquids and Solids IDDSI Level 7 Easy to Chew 11/17/24 1509 History of presenting illness: Patient is a 79 y.o. female with a history of Past Medical History: Diagnosis Date Anxiety 06/11/2017 DX:Anxiety Depression 07/06/2017 DX:Depression HTN (hypertension) 06/11/2017 DX:HTN (hypertension) HTN (hypertension) DX:HTN (hypertension) HTN (hypertension) DX:HTN (hypertension) Hypothyroidism 06/11/2017 DX:Hypothyroidism Hypothyroidism DX:Hypothyroidism Osteopenia 07/06/2017 DX:Osteopenia Past Surgical History: Procedure Laterality Date WISDOM TOOTH EXTRACTION PROCEDURE: HISTORICAL WISDOM TEETH EXTRACTION admitted 11/14/2024 with Acute subdural hematoma (CMS/HCC). Food/Nutrition History: Self-selected diet(s) followed: Pt had some difficulty providing history but was able to communicate general history. No food allergies, No difficulties chewing or swallowing, consumes two meals daily. Tries to walk daily. Denies food insecurity concerns. Follows no dietary restrictions. Confirms height. reports she lost 5lbs prior to admission with effort (increased her walking, cut back ). Appetite FRONT MAN: Good Intake FRONT MAN: Stable Vitamins/Minerals/Herbs: one a day type multivitamin Weight History: Wt Readings from Last 10 Encounters: 11/18/24 65.8 kg (144 lb 15.9 oz) 09/03/24 68.2 kg (150 lb 6.4 oz) 02/28/24 69.2 kg (152 lb 9.6 oz) 08/01/23 70 kg (154 lb 4.8 oz) 07/11/23 69.5 kg (153 lb 3.2 oz) 12/28/22 70.1 kg (154 lb 9.6 oz) 06/15/22 70.4 kg (155 lb 3.2 oz) Subjective Assessment: Pt appears comfortable, reports she anticipates going to rehab soon. RN confirms last listed BM in EPIC record. Miralax given. Bed scale weight not zeroed 156.5 lbs, pt reports usual weight is 146 lbs. Nutrition-Related Lab Values: Results from last 7 days Lab Units 11/21/24 0541 11/17/24 0643 11/15/24 0627 SODIUM mmol/L 138 < > 139 POTASSIUM mmol/L 4.0 < > 3.6 MAGNESIUM mg/dL -- -- 2.0 CHLORIDE mmol/L 104 < > 108 CO2 mmol/L 29 < > 24 BUN mg/dL 18 < > 22 CREATININE mg/dL 0.60 < > 0.77 EGFR mL/min/1.73m2 93 < > 80 CALCIUM mg/dL 8.1* < > 8.5 GLUCOSE mg/dL 99 < > 114* WBC AUTO K/mcL 8.4 < > 8.8 < > = values in this interval not displayed. Medications: acetaminophen, 1,000 mg, oral, q8h SADIE amLODIPine, 2.5 mg, oral, Daily citalopram, 30 mg, oral, Daily heparin (porcine), 5,000 Units, subcutaneous, q12h SADIE levothyroxine, 75 mcg, oral, Daily melatonin, 3 mg, oral, Nightly multivitamin, 1 tablet, oral, Daily pantoprazole, 40 mg, oral, q AM AC polyetheylene glycol, 17 g, oral, Daily senna-docusate, 2 tablet, oral, Nightly sodium chloride, 10 mL, intravenous, BID CONTINUOUS: Oxygen Therapy, Adult, PRN medications: acetaminophen, hydrALAZINE, HYDROmorphone, magnesium hydroxide, naloxone, ondansetron, oxyCODONE, oxyCODONE, oxyCODONE, [COMPLETED] Insert peripheral IV AND Maintain IV access AND [COMPLETED] Saline lock IV AND sodium chloride AND sodium chloride Food/Nutrition-Current Status: Intake Type: P.O. Current Diet Status: Appropriate Current Supplement Status: Other (Comment) (not ordered) Appetite: Good (fair-good when diet allowed) Intake Amount (%): 75-100% (per EPIC record today) Intake Assessment: Adequate Nutrition Focused Physical Findings: Overall Appearance: lying in bed, visiting with family, reports oral intake is at baseline but reports she generally does not eat much, family confirms. Digestive System (Mouth to Rectum): Other (Comment) (Per RN, 11/14) Nerves and Cognition: Alert (genrally oriented) Skin: hip incision, face abrasion Fluid Accumulation/Edema: Other (Comment) (not observed) Loss of Fat Location: Orbital, Buccal, Triceps, Ribs Loss of Fat Amt-Orbital: Mild Loss of Fat Amt-Buccal: Mild Loss of Fat Amt-Triceps: No Losses Loss of Fat Amt-Ribs: Not Examined Loss of Muscle Location: Temples, Clavicle, Shoulders, Interosseous, Scapula, Thigh, Calf Loss of Muscle Amt-Temples: No Losses Loss of Muscle Amt-Clavicle: Mild Loss of Muscle Amt-Shoulders: No Losses Loss of Muscle Amt-Inter Musc: Mild Loss of Muscle Amt-Scapula: Not Examined Loss of Muscle Amt-Thigh: Mild Loss of Muscle Amt-Calf: Not Examined Nutrition Diagnosis: Code Type: None Identified Status: Other (Comment) Diagnosis: Altered GI Function Etiology: Changes in GI motility Symptoms: as evidenced by constipation Nutrition Interventions: Diet Order, Meals/Snacks, Medical Food Supplement, Vitamin/Mineral Supplement (as appropriate on follow up) Pt taking multivitamin, continue, if intake less than 75% on follow up add oral supplement -discussed with RN concern regarding constipation Goals: Patient will consume greater than or equal to 75% meals., Stooling appropriately., and Maintain skin integrity. Coordination of Patient Care: Verbal discussion with RN. Monitoring/Evaluation: Fluid/Beverage Intake, Food Intake, Weight, Other (Comment) (BM) Follow Up: Nutrition Priority Level: Moderate Please consult nutrition if needed sooner. RD remains available and will continue to follow. Signature: Shana Gomez RD * Saundra Bucio MD - 11/21/2024 4:18 PM EST Images from the original note were not included. SELAM PROGRESS NOTE Date: 11/21/2024 Author: Saundra Bucio MD Patient ID: Isabela Rios is a 79 y.o. female : 1945 MR#: [id number] SUBJECTIVE CC: Here after fall resulting in subdural hematoma and left hip fracture. She is eating breakfast, getting ready for PT. No complaints. No events reported by nursing. ROS: As above OBJECTIVE Vitals: 11/21/24 1518 BP: 119/55 Pulse: 72 Resp: 17 Temp: 36.1 ??C (96.9 ??F) SpO2: 97% Physical exam: General: fatigued, not in distress CVS: S1-S2 Resp: Clear lung Abd: NT, soft. Extr: Without peripheral edema, L hip dressing+ Neuro: Awake and alert, face is symmetric, moves all extremities with equal power Current Medications: acetaminophen, 1,000 mg, oral, q8h SADIE amLODIPine, 2.5 mg, oral, Daily citalopram, 30 mg, oral, Daily heparin (porcine), 5,000 Units, subcutaneous, q12h SADIE levothyroxine, 75 mcg, oral, Daily melatonin, 3 mg, oral, Nightly multivitamin, 1 tablet, oral, Daily pantoprazole, 40 mg, oral, q AM AC polyetheylene glycol, 17 g, oral, Daily senna-docusate, 2 tablet, oral, Nightly sodium chloride, 10 mL, intravenous, BID Oxygen Therapy, Adult, PRN medications: acetaminophen, hydrALAZINE, HYDROmorphone, magnesium hydroxide, naloxone, ondansetron, oxyCODONE, oxyCODONE, oxyCODONE, [COMPLETED] Insert peripheral IV AND Maintain IV access AND [COMPLETED] Saline lock IV AND sodium chloride AND sodium chloride HEMATOLOGY Lab Results Component Value Date WBC 8.4 11/21/2024 HGB 8.2 (L) 11/21/2024 HCT 26.0 (L) 11/21/2024 MCV 96.3 11/21/2024 PLT 235 11/21/2024 INR 1.0 11/14/2024 CHEMISTRY Lab Results Component Value Date GLUCOSE 99 11/21/2024 NA 138 11/21/2024 K 4.0 11/21/2024 CO2 29 11/21/2024 CL 104 11/21/2024 BUN 18 11/21/2024 CREATININE 0.60 11/21/2024 EGFR 93 11/21/2024 CALCIUM 8.1 (L) 11/21/2024 MG 2.0 11/15/2024 ANIONGAP 5 11/21/2024 Imaging: CT Head wo Contrast Narrative: PROCEDURE: HEAD CT INDICATION: Subdural hemorrhage TECHNIQUE: CT of the head without intravenous contrast. Multiplanar reformats. The examination was performed utilizing dose reduction techniques. Total DLP 901 COMPARISON: 11/18/2024 FINDINGS: No change in mixed density right cerebral convexity subdural collection measuring up to 10 mm in maximal coronal dimension. Local mass effect upon the right cerebrum is unchanged. Slight right to left midline shift is unchanged. Small subdural blood layering along the falx is similar compared to prior. No new hemorrhage, territorial infarction, or progressive mass effect. Brain parenchyma is unchanged Ventricles are stable in size. No hydrocephalus. Extracranial structures are unchanged. Impression: Stable right cerebral convexity subdural hematoma with unchanged mass effect. No new bleeding or progressive mass effect. -------- FINAL REPORT -------- Dictated By: KYLER BARRERA Dictated Date: 11/21/2024 08:43 ET Assigned Physician: KYLER BARRERA Reviewed and Electronically Signed By: KYLER BARRERA Signed Date: 11/21/2024 08:46 ET Workstation ID: [id number] Transcribed By: Self Edit Transcribed Date: 11/21/2024 08:43 ET ASSESSMENT & PLAN Isabela Rios is a 79 y.o. female with PMH of HTN hyperlipidemia, hypothyroidism, osteopenia, depression/anxiety, brought into ED after she was found down on the kitchen floor by her , reportedly she was wandering at night and fell also she could not recall the circumstances, she was noted to be confused and agitated in ED requiring soft restraints. At the baseline she did not use any assistive device for ambulation but frequent falls reported prior to this event. In ED she was afebrile and hemodynamically stable. CBC with mild leukocytosis with WBC 11.6 hemoglobin 12.3, BUN 24 creatinine 0.9 TSH was elevated at 48, respiratory viral panel was negative, EKG showed normal sinus rhythm with nonspecific T wave abnormality QTc 495, CT head revealed 8 mm subduralhematoma along the right convexity. X-ray of the left hip revealed acute transcervical femoral neckfracture. CT left lower extremity confirmed impacted and angulated left femoral neck fracture. Chest x-ray was suspicious for pulmonary vascular congestion. High sensitive troponin 10 x 10, CK was 668. UA was abnormal with proteinuria trace ketones moderate blood 28 WBCs 9 RBCs and many bacteria. She was admitted. Neurosurgery and orthopedic surgery consulted. For subdural conservative management was recommended, repeat CT head remained stable. Left hip fracture repair planned for today. Of note, she was noted to be hypoxic on the morning of 11/16/2024 with oxygen saturation 85% she wasplaced on O2 and CTA was obtained which did not demonstrate evidence of PE. Small bilateral pleuraleffusions noted. She underwent left hip hemiarthroplasty on 11/17/2024. On postoperative day 1 discussion was held with patient and family and prophylactic anticoagulation was initiated. Plan is to repeat CT head on 11/21/2024 to prove stability of subdural hematoma. Neurological status stable. # SDH - treated conservatively as recommended by neurosurgery and initial CT headx2 stable. After hip surgery DVT prophylaxis was recommended, orthopedic team reviewed with neurosurgery and held discussion with patient and family-it was decided to start her on small dose of heparin prophylaxis and monitor her neurological status closely with repeat CT head in 48 hours. She is doing well currently with no new neurological findings. Repeat CT head on 11/21/2024 - stable. Neurosurgery recommending to # Acute encephalopathy, dysarthria-likely due to subdural hematoma/? UTI and acute hospitalization contributing. Some improvement noted by family. MRI lucille did not reveal acute CVA. Full report as above. It did demonstrate additional smaller size subdural hematoma along the interhemispheric falx measuring 2 mm, original subdural hematoma proximately 10 mm in size. Overall mental status is much improved and speech is also better, she has occasional word finding difficulties. # Left hip fracture - s/p L hip hemiarthroplasty on 11/17/[address] Hester. # Probable UTI - urine culture with ESBL Eoli, resistant to quinolones.. Ceftriaxone stopped and she was administered 1 dose of fosfomycin. HTN -reportedly Norvasc was recently discontinued by PCP due to low blood pressure. Blood pressure was elevated on the morning of 11/17 with systolic 180 and initiated her on small dose of amlodipine 2.5 with as needed hydralazine. Monitor BP closely and adjust as needed. Hypothyroidism -TSH is elevated, Synthroid dose was increased on admission to 75 mcg daily(from 50). Compliance was questioned. We will review with this patient and family. She will need outpatient monitoring. Depression anxiety -she is on Celexa. Anemia?ACD - component of acute blood loss from surgery likely contributing. Monitor. Mild hypokalemia - replaced, resolved. DVT ppx -SCD, heparin 5000 units twice daily while carefully monitoring neurological status - stable so far with repeat imaging also stable. Code status - presumed full Dispo - PT eval --- will need rehab. Placement pending. HCP -daughter Rachel Bernard and [place]. * Bridgette Zelaya - 11/21/2024 10:54 AM EST [facility] Physical Therapy Treatment PT Discharge Recommendations: Inpatient rehab facility placement, penitentiary facility placement Equipment Recommended: walker Staff Recommendations for safe patient handling: standbyA/CG for transfers and walking Precautions Medical Precautions: Contact, Fall Risk, Limb restriction Safety Interventions: Call burris within reach, ID band on, Bed alarm, Side rails up x1, Telesitter RUE Weight Bearing Status: Full LUE Weight Bearing Status: Full RLE Weight Bearing Status: Full LLE Weight Bearing Status: As Tolerated Orthopedic Precautions: Posterior Hip Precautions Orthoses Applied: (abductor pillow in bed) History of Present Illness: Patient is a 79 y.o. female admitted to [facility] on 11/14/2024 with: Patient Active Problem List Diagnosis Anxiety Depression HTN (hypertension) Hyperlipidemia Hypothyroidism Osteopenia Osteoporosis Hip fracture requiring operative repair, left, closed, initial encounter ([facility]) Acute subdural hematoma ([facility]) Fall prevention education provided including use of call light in hospital, use of appropriate assistive device, safe mobility techniques, and safety measures at home. Continue PT as per POC. Subjective I don't think I will ever be the same again, but I will try Objective 11/21/24 0930 PT Last Visit PT Received On 11/21/24 PT Time Calculation PT Start Time 0930 PT Stop Time 1000 PT Time Calculation (min) 30 min Precautions Medical Precautions Contact;Fall Risk;Limb restriction Safety Interventions Call burris within reach;ID band on;Bed alarm;Side rails up x1;Telesitter RUE Weight Bearing Status Full LUE Weight Bearing Status Full RLE Weight Bearing Status Full LLE Weight Bearing Status As Tolerated Orthopedic Precautions Posterior Hip Precautions Vital Signs SpO2 98 % Oxygen Therapy Pulse Oximetry Type Intermittent Pulse Oximetry Location Finger Patient Activity Walking Oxygen Therapy None (Room air) Pain Assessment Pain Assessment No/denies pain Cognition Overall Cognitive Status WFL Arousal/Alertness Appropriate responses to stimuli Orientation Level Oriented X4 Following Commands Follows one step commands with repetition;Follows one step commands with increased time Activity Tolerance Endurance Tolerates 20 - 30 min activity with multiple rests Static Sitting Balance Static Sitting-Level of Assistance Distant supervision Dynamic Sitting Balance Dynamic Sitting-Level of Assistance Supervision Static Standing Balance Static Standing-Level of Assistance Standby assistance Dynamic Standing Balance Dynamic Standing-Level of Assistance Contact guard Bed Mobility Lying to Sitting Assistance Minimum assistance Bed Mobility Comments needs hand to help pull her up out of bed Transfers Sit to Stand Assistance Contact guard (Speedy if low chair) Ambulation Walking Assistance Contact guard Device Rolling walker Pattern Shuffle;L Foot drag Distance Ambulated (ft) 100 Stairs Stairs Assistance Contact guard Stair Management Technique/Device Two rails;Step to pattern Number of Stairs 4 Stairs Comments good, but anxious Procedures Procedures Gait Training Gait Training Gait Training Time Entry 30 Gait Training Activity 1 Pt needed Speedy to help sit up out of bed and CG to perform STS to walker. Pt is worried she is going to hurt herself more, so needs many cues/reassurance during turning/walking. Pt walks 50 ft with CG and walker to stairs. Pt performed 4 stairs with CG and felt lightheaded/dizzy from anxiety on stairs so sat for 5 min break. Pt performed STS with CG to walker and ambulated 50 ft back to room and sits in chair with cues to back up legs to chair and reach for chair. Pt needs less cueing and ambulates more smoothly on the way back. PT Assessment PT Assessment Results Decreased strength;Decreased range of motion;Decreased endurance;Impaired balance;Impaired gait Prognosis Good Evaluation/Treatment Tolerance Patient tolerated treatment well Medical Staff Made Aware Yes Plan Treatment/Interventions LE strengthening/ROM;Endurance training;Gait training PT Plan Skilled PT PT Frequency 7 days per week PT Duration of Sessions 15-30 min per session PT Treatments per day 1 time per day PT Discharge Recommendations Inpatient rehab facility placement;penitentiary facility placement Equipment Recommended walker Barriers to Discharge ability to remember precautions, do more stairs PT - Evaluation Status Complete Procedure/Treatment: Procedures Procedures: Gait Training Gait Training Gait Training Time Entry: 30 Gait Training Activity 1: Pt needed Speedy to help sit up out of bed and CG to perform STS to walker.Pt is worried she is going to hurt herself more, so needs many cues/reassurance during turning/walking. Pt walks 50 ft with CG and walker to stairs. Pt performed 4 stairs with CG and felt lightheaded/dizzy from anxiety on stairs so sat for 5 min break. Pt performed STS with CG to walker and ambulated 50 ft back to room and sits in chair with cues to back up legs to chair and reach for chair. Pt needs less cueing and ambulates more smoothly on the way back. Patient left sitting up in chair. RN notified of pt. status, location, response to treatment, and therapy recommendations. Physical Therapy Assessment/Plan PT Assessment PT Assessment Results: Decreased strength, Decreased range of motion, Decreased endurance, Impairedbalance, Impaired gait Prognosis: Good Evaluation/Treatment Tolerance: Patient tolerated treatment well Comments: pt was I at [facility]; feel she is a good candidate for acute rehab Medical Staff Made Aware: Yes Plan Treatment/Interventions: LE strengthening/ROM, Endurance training, Gait training PT Plan: Skilled PT PT Frequency: 7 days per week PT Duration of Sessions: 15-30 min per session PT Treatments per day: 1 time per day PT Discharge Recommendations: Inpatient rehab facility placement, penitentiary facility placement Equipment Recommended: walker Barriers to Discharge: ability to remember precautions, do more stairs PT - Evaluation Status: Complete Physical Therapy Goals/Education Encounter Problems Encounter Problems (Active) Template: Physical Therapy Problem: PT Short Term Goals Dates: Start: 11/21/24 Goal: Pt will be able to repeat all 3 hip precautions w/o assistance. Dates: Start: 11/21/24 Expected End: 11/28/24 Goal: Pt will be able to navigate 10 stairs w/CG and 2 rails and minimal cues. Dates: Start: 11/21/24 Expected End: 11/28/24 Encounter Problems (Resolved) Template: Physical Therapy Problem: PT Short Term Goals Dates: Start: 11/18/24 Resolved: 11/21/24 Goal: Patient will transfer supine<>sit with min assist (Resolved) Dates: Start: 11/18/24 Expected End: 11/20/24 Resolved: 11/21/24 Outcomes Date/Time User Outcome 11/21/24 1051 Bridgette Zelaya Completed Goal: Patient will transfer sit<>stand safely with min assist of 1 (Resolved) Dates: Start: 11/18/24 Expected End: 11/21/24 Resolved: 11/20/24 Outcomes Date/Time User Outcome 11/20/24 1325 Bridgette Zelaya Completed Goal: Patient will transfer supine<>sit with min assist (Resolved) Dates: Start: 11/19/24 Expected End: 11/21/24 Resolved: 11/21/24 Outcomes Date/Time User Outcome 11/21/24 1052 Bridgette Velásquezivyroxy Completed Goal: Patient will transfer sit<>stand safely , min assist (Resolved) Dates: Start: 11/19/24 Expected End: 11/24/24 Resolved: 11/20/24 Outcomes Date/Time User Outcome 11/20/24 1325 Bridgette Zelaya Completed Education Documentation No documentation found. Education Comments No comments found. Bridgette Garcia Associated attestation - Evangelina Flowers PT - 11/21/2024 1:15 PM EST Pt was integrally and physically involved in the decision making, delivery of interventions, and ongoing assessment during the pt's care session. * FRANCES Herrera - 11/21/2024 10:44 AM EST Ms. Rios denies any headache nausea or visual changes. Her mental status seems more clear than a couple of days ago. VSS Face is symmetric Ecchymoses over left periorbital region Oriented to person, [facility], Oct 2024. Respirations unlabored and heart had a regular rate. HIGUERA, no pronator drift CT head from this am shows expected evolution of right vertex SDH now with mixed attenuation suggesting transition to subacute. Hospital Day #7 s/p acute right frontal SDH, POD #5 s/p left hip hemiarthroplasty Ms. Rios has been on subcu heparin for a little over 48 hours. She should f/u in our office in 10-14 days with a new head CT. * Kathleen Martins OT - 11/21/2024 9:30 AM EST [facility] Occupational Therapy Treatment Note DATE: Thursday November 21, 2024 TIME IN: 929 TIME OUT: 1010 Pt: Isabela Rios [id number] DISCHARGE RECS: penitentiary facility placement, Inpatient rehab facility placement EQUIPMENT RECS: Walker-rolling (drupal php developer) SAFE PT HANDLING REC FOR STAFF: 1 person min assist with RW PRECAUTIONS: Precautions Medical Precautions: Fall Risk Safety Interventions: Call burris within reach, ID band on, Chair alarm RUE Weight Bearing Status: Full LUE Weight Bearing Status: Full RLE Weight Bearing Status: Full LLE Weight Bearing Status: As Tolerated Orthopedic Precautions: Posterior Hip Precautions ASSESSMENT: Pt participated in skilled OT session today. Patient engaged in therapeutic activity. Patient verbalized understanding to education provided and responded appropriately to cues. Patient would continue to benefit from skilled acute care OT to address sit to stands, txfers, balance, fxnl mobility, ADLs, IADLs. Subjective I'll try Objective 11/21/24 1121 OT Last Visit OT Received On 11/21/24 General Family/Caregiver Present No OT Time Calculation OT Start Time 0930 OT Stop Time 1010 OT Time Calculation (min) 40 min Precautions Medical Precautions Fall Risk Safety Interventions Call burris within reach;ID band on;Chair alarm RUE Weight Bearing Status Full LUE Weight Bearing Status Full RLE Weight Bearing Status Full LLE Weight Bearing Status As Tolerated Orthopedic Precautions Posterior Hip Precautions Vital Signs Patient Identification Yes Pain Assessment Pain Assessment No/denies pain Pain Score 0 - No pain Cognition Orientation Level Oriented X4 Therapeutic Activity Therapeutic Activity Time Entry 40 Therapeutic Activity 1 Pt completed fxnl mobility 40 ft x 2 wiith RW with min assist with vebral cues for RW management. OT reviewed posterior hip precautions, pt able to report 1/3 not crossing king LEs. OT educated pt on remainder of precautions and educated pt on use of AE in order to complete lower body dressing tasks and footwear tasks. Pt educated on safety techniques, hand placement when competing transitional movements. OT Assessment OT Assessment Results Decreased ADL status;Decreased endurance;Decreased functional mobility;Decreased fine motor control;Decreased gross motor control Prognosis Good Evaluation/Treatment Tolerance Patient tolerated treatment well Plan Treatment Interventions ADL retraining;UE strengthening/ROM;Functional transfer training;Endurance training OT Plan Skilled OT OT Frequency 2-5 days per week OT Duration of Sessions 30-60 min per session OT Treatments per day 1 time per day OT - Evaluation Status Complete OT Discharge Recommendations penitentiary facility placement;Inpatient rehab facility placement Equipment Recommended Walker-rolling (drupal php developer) ADDITIONAL COMMENTS: Chart reviewed. RN clears pt for session. Pt agrees to participate and received supine with HOB elevated. All lines in place. Medical precautions observed appropriately. Patient educated on Role of OT and ADL Techniques and Safety . Fair verbal understanding and returndemonstration. Additional education and training recommended. EXIT STATUS: Session ended with patient sitting in chair. Needs in reach. RN notified. Assessment & Plan EDUCATION Education Documentation Body Mechanics, taught by Kathleen Martins OT at 11/21/2024 11:26 AM. Learner: Patient Readiness: Eager Method: Explanation Response: Verbalizes Understanding Precautions, taught by Kathleen Martins OT at 11/21/2024 11:26 AM. Learner: Patient Readiness: Eager Method: Explanation Response: Verbalizes Understanding Education Comments No comments found. Encounter Problems Encounter Problems (Active) Template: Occupational Therapy Problem: OT Short Term Goals Dates: Start: 11/20/24 Goal: OT STG 1 Dates: Start: 11/20/24 Expected End: 11/25/24 Goal Note filed on 11/20/24 1538 by Magnolia Lincoln OT Pt will complete toileting with max A with RW use Goal: pt will complete lower body dressing task AE PRN min assist Dates: Start: 11/21/24 Expected End: 11/28/24 Goal: pt will complete toilet txfer with RW CGA Dates: Start: 11/21/24 Expected End: 11/28/24 Encounter Problems (Resolved) There are no resolved problems. Kathleen Martins OT * FRANCES Hardwick - 11/21/2024 8:34 AM EST Images from the original note were not included. Orthopedic Trauma Progress Note Reason for Visit: Left femoral neck fracture Surgery: Left hip hemiarthroplasty performed by Dr Hester on 11/17/24 SUBJECTIVE: Patient found resting comfortably in bed. She was downgraded to a normal unit overnight. Pt has an Avasure monitoring device in room. Pt denies STYLES or other neurological decline over last 24 hours that she is aware of. She does state that she is at home, but recalls president and age. No overnight events reported at this time. Review of systems: Patient does not report headaches, shortness breath, chest pain, lightheadedness, abdominal pain, nausea or vomiting OBJECTIVE Vitals: 11/21/24 0749 BP: 138/62 Pulse: 73 Resp: 16 Temp: 36 ??C (96.8 ??F) SpO2: 94% Scheduled Medications PRN Medications IV Medications acetaminophen, 1,000 mg, q8h SADIE amLODIPine, 2.5 mg, Daily citalopram, 30 mg, Daily heparin (porcine), 5,000 Units, q12h SADIE levothyroxine, 75 mcg, Daily melatonin, 3 mg, Nightly multivitamin, 1 tablet, Daily pantoprazole, 40 mg, q AM AC polyetheylene glycol, 17 g, Daily senna-docusate, 2 tablet, Nightly sodium chloride, 10 mL, BID acetaminophen, 650 mg, q6h PRN hydrALAZINE, 10 mg, q6h PRN HYDROmorphone, 0.5 mg, q3h PRN magnesium hydroxide, 30 mL, Daily PRN naloxone, 0.04 mg, PRN ondansetron, 4 mg, q6h PRN oxyCODONE, 2.5 mg, q4h PRN oxyCODONE, 5 mg, q4h PRN oxyCODONE, 5 mg, q4h PRN sodium chloride, 10 mL, PRN Oxygen Therapy, Adult Labs Hematology Lab Results Component Value Date WBC 8.4 11/21/2024 HGB 8.2 (L) 11/21/2024 HCT 26.0 (L) 11/21/2024 MCV 96.3 11/21/2024 PLT 235 11/21/2024 Chemistry Lab Results Component Value Date GLUCOSE 99 11/21/2024 NA 138 11/21/2024 K 4.0 11/21/2024 CO2 29 11/21/2024 CL 104 11/21/2024 BUN 18 11/21/2024 CREATININE 0.60 11/21/2024 EGFR 93 11/21/2024 CALCIUM 8.1 (L) 11/21/2024 MG 2.0 11/15/2024 ANIONGAP 5 11/21/2024 Lab Results Component Value Date ALT 40 11/14/2024 AST 52 (H) 11/14/2024 BILITOT 1.0 11/14/2024 ALKPHOS 81 11/14/2024 ALBUMIN 3.9 11/14/2024 PROT 6.8 11/14/2024 TSH 48.69 (H) 11/14/2024 INR 1.0 11/14/2024 Lab Results Component Value Date URINECX >100,000 CFU/mL Escherichia coli ESBL (A) 11/14/2024 Physical Exam General: no acute distress, cooperative HEENT: Normocephalic, ecchymosis over left orbit, EOMI Skin: Warm, dry Cardiac: No JVD, no peripheral edema Pulmonary: Equal chest rise, no increased work of breathing Musculoskeletal: Surgical dressing C/D/I, M+S intact distally, abduction pillow in place Vascular: extremities WWP, pulses palpable Neuro: A+O ?? 3, No focal deficits Psych: Normal affect, good eye contact ASSESSMENT/PLAN Isabela Rios is a 79 y.o. female with a Acute subdural hematoma (CMS/HCC) as well as a femoral neck fracture of the left hip. Surgery delayed due to SDH. Now POD#4 left hip hemiarthroplasty Antibiotics Ancef 2g IV q6 hours x 3 doses post op Analgesia: as charted and ordered, limit opiates and wean off as soon as possible Anticoagulation: Continue heparin 5000 units subcu every 12 hours with close monitoring. There has been no sign of neurological decline. Plan for head CT this morning to assess stability of the subdural hematoma since initiation of anticoagulation Activity: PT/OT/WB: WBAT LLE. Continue PT/OT. Abduction pillow while in bed, keeps straps loose. Anything else: Follow up with us in 2 weeks Discussed and reviewed with Dr. Presley, orthopedic surgery attending FRANCES Hardwick Orthopedic Surgery 11/21/2024 8:34 AM EST * FRANCES Hardwick - 11/21/2024 7:17 AM EST Images from the original note were not included. Final pathology reviewed by Orthopedic team. No acute findings. Tissue exam: [id number] Order: [id number] Collected 11/17/2024 13:17 Status: Final result Visible to patient: No (not released) Dx: Hip fracture requiring operative repa... 0 Result Notes Component Final Diagnosis Bone, left femoral head: -CONSISTENT WITH FRACTURE at 1045 Gross Description A. Bone, left femoral head: [...] with some hemorrhage around the margin. A human resources hr representative section is submitted in one cassette following decalcification, one piece CHECO Disclaimer Unless otherwise specified, all tissue is 10% NB formalin fixed and paraffin embedded. Resulting Agency [facility] Collection Information Specimen ID: [id number] Bone Collected: 11/17/2024 1317 EST ELVA HESTER Received: 11/17/2024 1555 EST Resulting Agency: [facility]) [facility] [address] [place] [id number] * Magnolia Latonia, OT - 11/20/2024 3:42 PM EST 11/20/24 1254 OT Last Visit OT Received On 11/20/24 General Family/Caregiver Present Yes OT Time Calculation OT Start Time 1245 OT Stop Time 1320 OT Time Calculation (min) 35 min Occupational Therapy OT Individual 35 Precautions Medical Precautions Contact;Fall Risk;Limb restriction Safety Interventions Call burris within reach;ID band on;Bed alarm;Side rails up x1;Telesitter RUE Weight Bearing Status Full LUE Weight Bearing Status Full LLE Weight Bearing Status As Tolerated Orthopedic Precautions Posterior Hip Precautions Pain Assessment Pain Assessment 0-10 Pain Score 5 - Moderate pain Pain Location Leg Pain Orientation Left Home Living Type of Home House Lives With Spouse Home Adaptive Equipment (shower chair with back , hand held shower head , grab bars in shower) Home Access Stairs to enter with rails Entrance Stairs-Rails Rail on both sides Entrance Stairs-Number of Steps 2 Bathroom Shower/Tub Walk-in shower Bathroom Toilet Standard Bathroom Equipment Shower chair with back Prior Function Level of [place] Independent with mobility and functional transfers Indoor Mobility Assistance Independent Stairs Assistance Independent Prior Device Use No prior device use Do you drive? 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 Right ADL/IADL History ADL Assistance (Self Care) Independent Homemaking Comments (IND) IADL Comments (IND) ADL ADL Comments (total A with lower body ADLs and toiletiing and max A with bathing ; equipment will need to be addressed in order to adhere to precautions) Functional Transfers Functional Transfers Comment (min A with sit <> stand transfers from recliner with use of wheeled walker and max instruction and demonstration and tactile cues for transfer training and body mechanics) Functional Mobility Walking Assistance (min A with wheeled walker use , 10 feet x 2 , with instruction for body mechanics and sequencing of steps) Walking Deficit Steadying;Verbal cueing;Supervision/safely awareness;Increased time to complete;Assist for trunk control Device Rolling walker Cognition Orientation Level Oriented X4 Deficits Fully aware of deficits Attention Span Attends with cues to redirect Memory Appears intact Insight WFL Perseveration Not present Vision - Basic Assessment Patient Visual Report (denies visual deficits s/p fall) Perception Inattention/Neglect Appears intact Initiation Appears intact Motor Planning Appears intact Hand Function Gross Grasp Functional Coordination Coordination Functional RUE Assessment RUE Assessment Within Functional Limits LUE Assessment LUE Assessment Within Functional Limits OT Assessment OT Assessment Results Decreased ADL status;Decreased upper extremity strength;Decreased endurance;Decreased functional mobility;Decreased IADLs Prognosis Good Evaluation/Treatment Tolerance Patient limited by pain Medical Staff Made Aware Yes Plan Treatment Interventions ADL retraining;Functional transfer training;UE strengthening/ROM;Endurance training;Patient/family training;Equipment evaluation/education OT - Evaluation Status Complete OT Discharge Recommendations Inpatient rehab facility placement Equipment Recommended (to be determined) OT Evaluation Time Entry OT Evaluation (Low) Time Entry 35 [facility] Occupational Therapy Evaluation DATE: October TIME IN: 1245 TIME OUT: 1320 Pt: Isabela Rios ROOM: Discharge Recommendation: inpatient rehab Equipment Recommendation: other to be determined Staff recommendations for safe patient handlin person CGA with RW Assessment: Patient is a 79 y.o. y.o. female presenting for OT evaluation following admission due to fall . During today's skilled acute care OT evaluation, pt demonstrated the following deficits: alteration in ADLs, IADLs, functional mobility and transfers . Pt currently requires total A for lowerbody ADLs and toileting and instruction to adhere to precautions and A for bathing and Min A for functional transfers/mobility with RW use Pt will continue to benefit from skilled acute care OT services this admission to facilitate improvements in the areas of deficit listed above and to progress toward their PLOF with ADLs and IADLs. OT Time Calculation OT Start Time: 1245 OT Stop Time: 1320 OT Time Calculation (min): 35 min History of Present Illness: Patient is a 79 y.o. female admitted to [facility] on 11/14/2024. Occupational Therapy evaluation and treatment ordered to assess ADL independence, safety, and functional mobility for discharge planning. Patient Active Problem List Diagnosis Anxiety Depression HTN (hypertension) Hyperlipidemia Hypothyroidism Osteopenia Osteoporosis Hip fracture requiring operative repair, left, closed, initial encounter ([facility]) Acute subdural hematoma ([facility]) Past Medical History: Diagnosis Date Anxiety 06/11/2017 DX:Anxiety Depression 07/06/2017 DX:Depression HTN (hypertension) 06/11/2017 DX:HTN (hypertension) HTN (hypertension) DX:HTN (hypertension) HTN (hypertension) DX:HTN (hypertension) Hypothyroidism 06/11/2017 DX:Hypothyroidism Hypothyroidism DX:Hypothyroidism Osteopenia 07/06/2017 DX:Osteopenia Past Surgical History: Procedure Laterality Date WISDOM TOOTH EXTRACTION PROCEDURE: HISTORICAL WISDOM TEETH EXTRACTION Subjective Yes, I want to do therapy . Patient alert and agreeable to engage in OT evaluation and treatment. Objective Patient was identified by name and x2. Appropriate PPE worn per current protocol. Gait belt used for functional mobility. Hearing: Intact Speech: Intact Vision: Vision: Intact INSERT GRID HERE 11/20/24 1254 OT Last Visit OT Received On 11/20/24 General Family/Caregiver Present Yes OT Time Calculation OT Start Time 1245 OT Stop Time 1320 OT Time Calculation (min) 35 min Occupational Therapy OT Individual 35 Precautions Medical Precautions Contact;Fall Risk;Limb restriction Safety Interventions Call burris within reach;ID band on;Bed alarm;Side rails up x1;Telesitter RUE Weight Bearing Status Full LUE Weight Bearing Status Full LLE Weight Bearing Status As Tolerated Orthopedic Precautions Posterior Hip Precautions Pain Assessment Pain Assessment 0-10 Pain Score 5 - Moderate pain Pain Location Leg Pain Orientation Left Home Living Type of Home House Lives With Spouse Home Adaptive Equipment (shower chair with back , hand held shower head , grab bars in shower) Home Access Stairs to enter with rails Entrance Stairs-Rails Rail on both sides Entrance Stairs-Number of Steps 2 Bathroom Shower/Tub Walk-in shower Bathroom Toilet Standard Bathroom Equipment Shower chair with back Prior Function Level of [place] Independent with mobility and functional transfers Indoor Mobility Assistance Independent Stairs Assistance Independent Prior Device Use No prior device use Do you drive? 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 Right ADL/IADL History ADL Assistance (Self Care) Independent Homemaking Comments (IND) IADL Comments (IND) ADL ADL Comments (total A with lower body ADLs and toiletiing and max A with bathing ; equipment will need to be addressed in order to adhere to precautions) Functional Transfers Functional Transfers Comment (min A with sit <> stand transfers from recliner with use of wheeled walker and max instruction and demonstration and tactile cues for transfer training and body mechanics) Functional Mobility Walking Assistance (min A with wheeled walker use , 10 feet x 2 , with instruction for body mechanics and sequencing of steps) Walking Deficit Steadying;Verbal cueing;Supervision/safely awareness;Increased time to complete;Assist for trunk control Device Rolling walker Cognition Orientation Level Oriented X4 Deficits Fully aware of deficits Attention Span Attends with cues to redirect Memory Appears intact Insight WFL Perseveration Not present Vision - Basic Assessment Patient Visual Report (denies visual deficits s/p fall) Perception Inattention/Neglect Appears intact Initiation Appears intact Motor Planning Appears intact Hand Function Gross Grasp Functional Coordination Coordination Functional RUE Assessment RUE Assessment Within Functional Limits LUE Assessment LUE Assessment Within Functional Limits OT Assessment OT Assessment Results Decreased ADL status;Decreased upper extremity strength;Decreased endurance;Decreased functional mobility;Decreased IADLs Prognosis Good Evaluation/Treatment Tolerance Patient limited by pain Medical Staff Made Aware Yes Plan Treatment Interventions ADL retraining;Functional transfer training;UE strengthening/ROM;Endurance training;Patient/family training;Equipment evaluation/education OT - Evaluation Status Complete OT Discharge Recommendations Inpatient rehab facility placement Equipment Recommended (to be determined) OT Evaluation Time Entry OT Evaluation (Low) Time Entry 35 Additional activities performed during evaluation: ADDITIONAL COMMENTS: Chart reviewed. RN yes clears pt for session. Pt agrees to participate and received sitting in chair. All lines in place. Spouse present during session. . Medical precautions observed appropriately. Initiated education on Role of OT, Transfer Safety, Ambulation Safety, WB Status, Hip Precautions, ADL Techniques and Safety , Therapy Plan of Care, and Discharge Recommendation. Pt needs reinforcement for carry over. EXIT STATUS: Session ended with patient sitting in chair. Needs in reach. RN notified. OT Goals Pt seen for OT eval and treatment session to assess ADL and functional status. See above for details of evaluation/treatment session. OT Assessment OT Assessment Results: Decreased ADL status, Decreased upper extremity strength, Decreased endurance, Decreased functional mobility, Decreased IADLs Prognosis: Good Evaluation/Treatment Tolerance: Patient limited by pain Medical Staff Made Aware: Yes Plan Treatment Interventions: ADL retraining, Functional transfer training, UE strengthening/ROM, Endurance training, Patient/family training, Equipment evaluation/education OT - Evaluation Status: Complete OT Discharge Recommendations: Inpatient rehab facility placement Equipment Recommended: (to be determined) Encounter Problems Encounter Problems (Active) Template: Occupational Therapy Problem: OT Short Term Goals Dates: Start: 11/20/24 Goal: OT STG 1 Dates: Start: 11/20/24 Expected End: 11/25/24 Goal Note filed on 11/20/24 1538 by Magnolia Lincoln OT Pt will complete toileting with max A with RW use Encounter Problems (Resolved) There are no resolved problems. Magnolia Lincoln OT * Magnolia Lincoln OT - 11/20/2024 3:40 PM EST Problem: OT Short Term Goals Goal: OT STG 1 Note: Pt will complete toileting with max A with RW use * Saundra Bucio MD - 11/20/2024 2:43 PM EST Images from the original note were not included. SELAM PROGRESS NOTE Date: 11/20/2024 Author: Saundra Bucio MD Patient ID: Isabela Rios is a 79 y.o. female : 1945 MR#: [id number] SUBJECTIVE CC: Here after fall resulting in subdural hematoma and left hip fracture. She feels better overall, just tired and weak. Pain with PT yesterday, no issues when in bed. No events reported by nursing. ROS: As above OBJECTIVE Vitals: 11/20/24 0930 BP: Pulse: Resp: Temp: SpO2: 100% Physical exam: General: fatigued, not in distress CVS: S1-S2 Resp: Clear lung Abd: NT, soft. Extr: Without peripheral edema, L hip dressing+ Neuro: Awake and alert, face is symmetric, moves all extremities with equal power Current Medications: acetaminophen, 1,000 mg, oral, q8h SADIE amLODIPine, 2.5 mg, oral, Daily citalopram, 30 mg, oral, Daily heparin (porcine), 5,000 Units, subcutaneous, q12h SADIE levothyroxine, 75 mcg, oral, Daily melatonin, 3 mg, oral, Nightly multivitamin, 1 tablet, oral, Daily pantoprazole, 40 mg, oral, q AM AC polyetheylene glycol, 17 g, oral, Daily senna-docusate, 2 tablet, oral, Nightly sodium chloride, 10 mL, intravenous, BID Oxygen Therapy, Adult, PRN medications: acetaminophen, hydrALAZINE, HYDROmorphone, magnesium hydroxide, naloxone, ondansetron, oxyCODONE, oxyCODONE, oxyCODONE, [COMPLETED] Insert peripheral IV AND Maintain IV access AND [COMPLETED] Saline lock IV AND sodium chloride AND sodium chloride HEMATOLOGY Lab Results Component Value Date WBC 7.6 11/20/2024 HGB 8.3 (L) 11/20/2024 HCT 26.4 (L) 11/20/2024 MCV 97.8 11/20/2024 PLT 195 11/20/2024 INR 1.0 11/14/2024 CHEMISTRY Lab Results Component Value Date GLUCOSE 94 11/20/2024 NA 138 11/20/2024 K 4.1 11/20/2024 CO2 30 11/20/2024 CL 106 11/20/2024 BUN 21 11/20/2024 CREATININE 0.67 11/20/2024 EGFR 90 11/20/2024 CALCIUM 8.3 (L) 11/20/2024 MG 2.0 11/15/2024 ANIONGAP 2 (L) 11/20/2024 Imaging: MR Brain wo Contrast Addendum: ADDENDUM: This report was discussed with Yolanda Barrera RN on Nov 18, 2024 20:12:00 EST. This document has been electronically signed by: Gloria Peña on 11/18/2024 20:12:27 Narrative: MR Brain without gadolinium Comparison: None Findings: [...] ethmoid air cells. No focal bone lesion. Impression: 1. Right subdural hematoma with additional thin falcine subdural hematoma measuring 2 mm. 2. Mild right cerebral sulcal crowding without midline shift or herniation This document has been electronically signed by: Estelle Jane MD on 11/18/2024 19:57:56 Transthoracic echocardiogram (TTE) complete with PRN contrast, bubble, strain, and 3D order panel Left ventricle cavity size is normal. Left ventricle mild hypertrophy.No regional LV wall motion abnormalities noted.Left ventricular systolic function is in the normal range with an ejection fraction of 55-60%. Right ventricle cavity is normal. Right ventricular systolic function is normal. Tricuspid Valve: Estimated RA pressure is 3 mmHg. The RVSP is estimated at 54 mmHg. There is very mild tricuspid insufficiency. There is trace to 1+ aortic valve insufficiency. No other significant valvular abnormalities. See other findings in the body of the study. No prior echo for comparison. CT Head wo Contrast Narrative: PROCEDURE: Noncontrast head CT. HISTORY: Subdural hematoma evaluate for expanding hematoma. COMPARISON: 11/15/2024. TECHNIQUE: Noncontrast head CT with coronal and sagittal reformats. Dose length product: 2140 mGy-cm. FINDINGS: Brain: Mixed attenuation subdural hematoma along the right convexity. This is unchanged in size. There is interval evolution of blood products, with a larger percentage of the collection appearing hypoattenuating than on the previous exam. No mass or CT evidence of an acute infarct. No CT evidence of an acute large vessel infarct. Ventricles and sulci are age commensurate. Atherosclerotic calcifications of the carotid siphons. Orbits: Lens implants and calcified senile scleral plaques. Sinuses/mastoids: Small amount of debris in the posterior right ethmoid air cells. Small amount of layering fluid in the central sphenoid sinus. Calvarium: Hyperostosis frontalis interna. Other: The skull base soft tissues are normal. Degenerative changes of the temporomandibular joints. Impression: Evolving subdural hematoma along the right frontal convexity. There is no significant interval change in size. -------- FINAL REPORT -------- Dictated By: Vinayak Austin Dictated Date: 11/18/2024 14:28 ET Assigned Physician: Vinayak Austin Reviewed and Electronically Signed By: Vinayak Austin Signed Date: 11/18/2024 14:33 ET Workstation ID: [id number] Transcribed By: Self Edit Transcribed Date: 11/18/2024 14:28 ET XR Hip 1 View Left Narrative: EXAMINATION: Imaging assistance provided during a procedure [...] femoral head is been resected. There are softtissue surgical changes. Impression: Intraoperative portable views of the left hip region during orthopedic surgery -------- FINAL REPORT -------- Dictated By: Yordy Garcia Dictated Date: 11/18/2024 06:55 ET Assigned Physician: Yordy Garcia Reviewed and Electronically Signed By: Yordy Garcia Signed Date: 11/18/2024 06:58 ET Workstation ID: [id number] Transcribed By: Self Edit Transcribed Date: 11/18/2024 06:55 ET ASSESSMENT & PLAN Isabela Rios is a 79 y.o. female with PMH of HTN hyperlipidemia, hypothyroidism, osteopenia, depression/anxiety, brought into ED after she was found down on the kitchen floor by her , reportedly she was wandering at night and fell also she could not recall the circumstances, she was noted to be confused and agitated in ED requiring soft restraints. At the baseline she did not use any assistive device for ambulation but frequent falls reported prior to this event. In ED she was afebrile and hemodynamically stable. CBC with mild leukocytosis with WBC 11.6 hemoglobin 12.3, BUN 24 creatinine 0.9 TSH was elevated at 48, respiratory viral panel was negative, EKG showed normal sinus rhythm with nonspecific T wave abnormality QTc 495, CT head revealed 8 mm subduralhematoma along the right convexity. X-ray of the left hip revealed acute transcervical femoral neckfracture. CT left lower extremity confirmed impacted and angulated left femoral neck fracture. Chest x-ray was suspicious for pulmonary vascular congestion. High sensitive troponin 10 x 10, CK was 668. UA was abnormal with proteinuria trace ketones moderate blood 28 WBCs 9 RBCs and many bacteria. She was admitted. Neurosurgery and orthopedic surgery consulted. For subdural conservative management was recommended, repeat CT head remained stable. Left hip fracture repair planned for today. Of note, she was noted to be hypoxic on the morning of 11/16/2024 with oxygen saturation 85% she wasplaced on O2 and CTA was obtained which did not demonstrate evidence of PE. Small bilateral pleuraleffusions noted. She underwent left hip hemiarthroplasty on 11/17/2024. On postoperative day 1 discussion was held with patient and family and prophylactic anticoagulation was initiated. Plan is to repeat CT head on 11/21/2024 to prove stability of subdural hematoma. Neurological status stable. # SDH -treated conservatively as recommended by neurosurgery and initial CT headx2 stable. After hip surgery DVT prophylaxis was recommended, orthopedic team reviewed with neurosurgery and held discussion with patient and family-it was decided to start her on small dose of heparin prophylaxis and monitor her neurological status closely with repeat CT head in 48 hours. She is doing well currently with no new neurological findings. Repeat CT head on 11/21/2024. # Acute encephalopathy, dysarthria-likely due to subdural hematoma/? UTI and acute hospitalization contributing. Some improvement noted by family. MRI ulcille did not reveal acute CVA. Full report as above. It did demonstrate additional smaller size subdural hematoma along the interhemispheric falx measuring 2 mm, original subdural hematoma proximately 10 mm in size. Overall mental status is much improved and speech is also better, she has occasional word finding difficulties. # Left hip fracture - s/p L hip hemiarthroplasty on 11/17/[address] Hester. # Probable UTI - urine culture with ESBL Eoli, resistant to quinolones.. Ceftriaxone stopped and she was administered 1 dose of fosfomycin. HTN -reportedly Norvasc was recently discontinued by PCP due to low blood pressure. Blood pressure was elevated on the morning of 11/17 with systolic 180 and initiated her on small dose of amlodipine 2.5 with as needed hydralazine. Monitor BP closely and adjust as needed. Hypothyroidism -TSH is elevated, Synthroid dose was increased on admission to 75 mcg daily(from 50). Compliance was questioned. We will review with this patient and family. She will need outpatient monitoring. Depression anxiety -she is on Celexa. Anemia?ACD - component of acute blood loss from surgery likely contributing. Monitor. Mild hypokalemia - replaced, resolved. DVT ppx -SCD, heparin 5000 units twice daily while carefully monitoring neurological status. RepeatCT head planned 48 hours after initiation of prophylactic anticoagulation. Code status - presumed full Dispo - PT eval --- will need rehab. Need to monitor 48 hours to confirm she could tolerate prophylactic anticoagulation without worsening neurological status. HCP -daughter Rachel Bernard and [place]. * Bridgette Zelaya - 11/20/2024 1:27 PM EST [facility] Physical Therapy Treatment PT Discharge Recommendations: Inpatient rehab facility placement Equipment Recommended: walker Staff Recommendations for safe patient handling: CG/Speedy with gait and transfers Precautions Medical Precautions: Contact, Fall Risk, Limb restriction Safety Interventions: Call burris within reach, ID band on, Bed alarm, Side rails up x1, Telesitter RUE Weight Bearing Status: Full LUE Weight Bearing Status: Full RLE Weight Bearing Status: Full LLE Weight Bearing Status: As Tolerated Orthopedic Precautions: Posterior Hip Precautions Orthoses Applied: (abductor pillow in bed) History of Present Illness: Patient is a 79 y.o. female admitted to [facility] on 11/14/2024 with: Patient Active Problem List Diagnosis Anxiety Depression HTN (hypertension) Hyperlipidemia Hypothyroidism Osteopenia Osteoporosis Hip fracture requiring operative repair, left, closed, initial encounter ([facility]) Acute subdural hematoma ([facility]) Fall prevention education provided including use of call light in hospital, use of appropriate assistive device, safe mobility techniques, and safety measures at home. Continue PT as per POC. Subjective Pt reports she doesn't know if she can walk. Objective 11/20/24 0930 PT Last Visit PT Received On 11/20/24 PT Time Calculation PT Start Time 0930 PT Stop Time 1015 PT Time Calculation (min) 45 min Precautions Medical Precautions Contact;Fall Risk;Limb restriction Safety Interventions Call burris within reach;ID band on;Bed alarm;Side rails up x1;Telesitter RUE Weight Bearing Status Full LUE Weight Bearing Status Full RLE Weight Bearing Status Full LLE Weight Bearing Status As Tolerated Orthopedic Precautions Posterior Hip Precautions Vital Signs Patient Identification Yes SpO2 100 % Oxygen Therapy Pulse Oximetry Location Finger Patient Activity At rest Oxygen Therapy Supplemental oxygen O2 Delivery Method Nasal cannula O2 Flow Rate (L/min) 3.5 L/min Pain Assessment Pain Assessment 0-10 Pain Score 3 Pain Type Surgical pain Pain Location Hip Pain Orientation Left Cognition Overall Cognitive Status WFL Arousal/Alertness Appropriate responses to stimuli Orientation Level Oriented X4 Following Commands Follows one step commands with repetition;Follows one step commands with increased time Activity Tolerance Endurance Tolerates 20 - 30 min activity with multiple rests Static Sitting Balance Static Sitting-Level of Assistance Supervision Dynamic Sitting Balance Dynamic Sitting-Level of Assistance Supervision Dynamic Sitting-Comments able to push herself up in chair and reposition herself on her own using UE Static Standing Balance Static Standing-Level of Assistance Contact guard Dynamic Standing Balance Dynamic Standing-Level of Assistance Contact guard;Minimum assistance Bed Mobility Rolling Left Assistance Standby assistance Lying to Sitting Assistance Minimum assistance Transfers Sit to Stand Assistance Minimum assistance Ambulation Walking Assistance Contact guard;Minimum assistance Device Rolling walker Pattern Shuffle;L Foot drag (analgic, needs lot of cueing) Distance Ambulated (ft) 30 RUE Assessment RUE Assessment Within Functional Limits LUE Assessment LUE Assessment Within Functional Limits RLE Assessment RLE Assessment Within Functional Limits LLE Assessment LLE Assessment Impaired LLE Assessment Comments at least 3/5 Procedures Procedures Gait Training;Therapeutic Exercise Gait Training Gait Training Time Entry 30 Gait Training Activity 1 Pt needed Speedy for upper body to help get sit up from lying supine in bed.Pt needed Speedy to stand up with walker and was able to walk 30ft around the room with CG. Needed several cues to lean on walker to take pressure off her hurting leg, and pt was concerned on if she was walking correctly . Pt was able to back herself up to recliner chair and sit down with CG. Pt repositioned herself in chair with supervision using her UE. Therapeutic Exercise Therapeutic Exercise Time Entry 15 Therapeutic Exercise Activity 1 10x LAQ, 10 seated marches, 20x ankle pumps PT Assessment PT Assessment Results Decreased strength;Decreased range of motion;Decreased endurance;Impaired balance;Impaired gait Prognosis Good Evaluation/Treatment Tolerance Patient tolerated treatment well Medical Staff Made Aware Yes Plan Treatment/Interventions LE strengthening/ROM;Endurance training;Gait training PT Plan Skilled PT PT Frequency 7 days per week PT Duration of Sessions 15-30 min per session PT Treatments per day 1 time per day PT Discharge Recommendations Inpatient rehab facility placement Equipment Recommended walker PT - Evaluation Status Complete Procedure/Treatment: Procedures Procedures: Gait Training, Therapeutic Exercise Gait Training Gait Training Time Entry: 30 Gait Training Activity 1: Pt needed Speedy for upper body to help get sit up from lying supine in bed. Pt needed Speedy to stand up with walker and was able to walk 30ft around the room with CG. Needed several cues to lean on walker to take pressure off her hurting leg, and pt was concerned on if she was walking correctly . Pt was able to back herself up to recliner chair and sit down with CG. Pt repositioned herself in chair with supervision using her UE. Therapeutic Exercise Therapeutic Exercise Time Entry: 15 Therapeutic Exercise Activity 1: 10x LAQ, 10 seated marches, 20x ankle pumps Patient left sitting up in bed. RN notified of pt. status, location, response to treatment, and therapy recommendations. Physical Therapy Assessment/Plan PT Assessment PT Assessment Results: Decreased strength, Decreased range of motion, Decreased endurance, Impairedbalance, Impaired gait Prognosis: Good Evaluation/Treatment Tolerance: Patient tolerated treatment well Comments: pt was I at [facility]; feel she is a good candidate for acute rehab Medical Staff Made Aware: Yes Plan Treatment/Interventions: LE strengthening/ROM, Endurance training, Gait training PT Plan: Skilled PT PT Frequency: 7 days per week PT Duration of Sessions: 15-30 min per session PT Treatments per day: 1 time per day PT Discharge Recommendations: Inpatient rehab facility placement Equipment Recommended: walker PT - Evaluation Status: Complete Physical Therapy Goals/Education Encounter Problems Encounter Problems (Active) Template: Physical Therapy Problem: PT Short Term Goals Dates: Start: 11/18/24 Goal: Patient will transfer supine<>sit with min assist Dates: Start: 11/18/24 Expected End: 11/20/24 Outcomes Date/Time User Outcome 11/20/24 1326 Bridgette Zelaya Progressing Goal: Patient will transfer sit<>stand safely with min assist of 1 (Resolved) Dates: Start: 11/18/24 Expected End: 11/21/24 Resolved: 11/20/24 Outcomes Date/Time User Outcome 11/20/24 1325 Bridgette Zelaya Completed Goal: Patient will transfer supine<>sit with min assist Dates: Start: 11/19/24 Expected End: 11/21/24 Outcomes Date/Time User Outcome 11/20/24 1326 Bridgette Zelaya Progressing Goal: Patient will transfer sit<>stand safely , min assist (Resolved) Dates: Start: 11/19/24 Expected End: 11/24/24 Resolved: 11/20/24 Outcomes Date/Time User Outcome 11/20/24 1325 Bridgette Zelaya Completed Encounter Problems (Resolved) There are no resolved problems. Education Documentation Precautions, taught by Bridgette Zelaya at 11/20/2024 1:26 PM. Learner: Patient Readiness: Acceptance Method: Explanation, Demonstration, Handout Response: Needs Reinforcement, Demonstrated Understanding Comment: went over hip precuations x2 - pt could not repeat back. wrote down on paper at end of session along with HEP and left with pt. Home Exercise Program, taught by Bridgette Zelaya at 11/20/2024 1:26 PM. Learner: Patient Readiness: Acceptance Method: Explanation, Demonstration, Handout Response: Needs Reinforcement, Demonstrated Understanding Comment: went over hip precuations x2 - pt could not repeat back. wrote down on paper at end of session along with HEP and left with pt. Mobility Training, taught by Bridgette Zelaya at 11/20/2024 1:26 PM. Learner: Patient Readiness: Acceptance Method: Explanation, Demonstration, Handout Response: Needs Reinforcement, Demonstrated Understanding Comment: went over hip precuations x2 - pt could not repeat back. wrote down on paper at end of session along with HEP and left with pt. Education Comments No comments found. Bridgette Zelaya Associated attestation - Evangelina Flowers PT - 11/20/2024 2:56 PM EST Pt was integrally and physically involved in the decision making, delivery of interventions, and ongoing assessment during the pt's care session. * FRANCES Hardwick - 11/20/2024 8:12 AM EST Images from the original note were not included. Orthopedic Trauma Progress Note Reason for Visit: Left femoral neck fracture Surgery: Left hip hemiarthroplasty performed by Dr Hester on 11/17/24 SUBJECTIVE: Patient found resting comfortably in bed. Patient was started on heparin on Sunday night. Patient was seen by neurosurgery yesterday. There has not been any sign of neurological decline over the last 24 hours. Speech continues to improve. She continues to mobilize with therapy and has no major complaints. She is now on contact precautions for ESBL in her urine. No overnight events reported at this time. Review of systems: Patient does not report headaches, shortness breath, chest pain, lightheadedness, abdominal pain, nausea or vomiting OBJECTIVE Vitals: 11/20/24 0436 BP: 127/67 Pulse: 76 Resp: 16 Temp: 36.6 ??C (97.9 ??F) SpO2: 100% Scheduled Medications PRN Medications IV Medications acetaminophen, 1,000 mg, q8h SADIE amLODIPine, 2.5 mg, Daily citalopram, 30 mg, Daily heparin (porcine), 5,000 Units, q12h SADIE levothyroxine, 75 mcg, Daily melatonin, 3 mg, Nightly multivitamin, 1 tablet, Daily pantoprazole, 40 mg, q AM AC polyetheylene glycol, 17 g, Daily senna-docusate, 2 tablet, Nightly sodium chloride, 10 mL, BID acetaminophen, 650 mg, q6h PRN hydrALAZINE, 10 mg, q6h PRN HYDROmorphone, 0.5 mg, q3h PRN magnesium hydroxide, 30 mL, Daily PRN naloxone, 0.04 mg, PRN ondansetron, 4 mg, q6h PRN oxyCODONE, 2.5 mg, q4h PRN oxyCODONE, 5 mg, q4h PRN oxyCODONE, 5 mg, q4h PRN sodium chloride, 10 mL, PRN Oxygen Therapy, Adult Labs Hematology Lab Results Component Value Date WBC 7.6 11/20/2024 HGB 8.3 (L) 11/20/2024 HCT 26.4 (L) 11/20/2024 MCV 97.8 11/20/2024 PLT 195 11/20/2024 Chemistry Lab Results Component Value Date GLUCOSE 97 11/19/2024 NA 139 11/19/2024 K 4.0 11/19/2024 CO2 27 11/19/2024 CL 108 11/19/2024 BUN 25 11/19/2024 CREATININE 0.71 11/19/2024 EGFR 88 11/19/2024 CALCIUM 8.1 (L) 11/19/2024 MG 2.0 11/15/2024 ANIONGAP 4 11/19/2024 Lab Results Component Value Date ALT 40 11/14/2024 AST 52 (H) 11/14/2024 BILITOT 1.0 11/14/2024 ALKPHOS 81 11/14/2024 ALBUMIN 3.9 11/14/2024 PROT 6.8 11/14/2024 TSH 48.69 (H) 11/14/2024 INR 1.0 11/14/2024 Lab Results Component Value Date URINECX >100,000 CFU/mL Escherichia coli ESBL (A) 11/14/2024 Physical Exam General: no acute distress, cooperative HEENT: Normocephalic, ecchymosis over left orbit, EOMI Skin: Warm, dry Cardiac: No JVD, no peripheral edema Pulmonary: Equal chest rise, no increased work of breathing Musculoskeletal: Surgical dressing C/D/I, M+S intact distally, abduction pillow in place Vascular: extremities WWP, pulses palpable Neuro: A+O ?? 3, No focal deficits Psych: Normal affect, good eye contact ASSESSMENT/PLAN Isabela Rios is a 79 y.o. female with a Acute subdural hematoma (CMS/HCC) as well as a femoral neck fracture of the left hip. Surgery delayed due to SDH. Now POD#3 left hip hemiarthroplasty Antibiotics Ancef 2g IV q6 hours x 3 doses post op Analgesia: as charted and ordered, limit opiates and wean off as soon as possible Anticoagulation: Continue heparin 5000 units subcu every 12 hours with close monitoring. There has been no sign of neurological decline. Plan for head CT tomorrow morning to assess stability of the subdural hematoma since initiation of anticoagulation Activity: PT/OT/WB: WBAT LLE. Continue PT/OT. Abduction pillow while in bed, keeps straps loose. Anything else: Follow up with us in 2 weeks Discussed and reviewed with Dr. Presley, orthopedic surgery attending FRANCES Hardwick Orthopedic Surgery 11/20/2024 8:12 AM EST * Cecelia Perez PT - 11/19/2024 3:20 PM EST Patient: Isabela Rios Age: 79 y.o. Sex: female Acute subdural hematoma (CMS/HCC) [facility] Physical Therapy Treatment Ambulation: Walking Assistance: Moderate assistance Walking Deficit: Steadying, Verbal cueing, Supervision/safety awareness, Increased time to complete, Assist for foot placement, Assist for trunk control, Assist for weight shifting, Limited endurance, Impaired balance, LE weakness Device: Rolling walker Distance Ambulated (ft): (P) 2 PLOF: Level of [place]: Independent with mobility and functional transfers Lives With: Spouse Type of Home: House Home Access: Stairs to enter with rails DME Needs: rwalker PT Discharge Recommendation: Reason for current recommendation based on assessment: Based on present level of mobility, pt is below baseline for functioning, is at a high risk for falls and is unable to safely ambulate a household distance at this time. Pt was previously independent and would benefit from the most intensive level of post- acute rehab for best functional outcome. SUBJECTIVE RN approved pt. for PT visit at this time. Pt. was educated on the PT role, understood the benefitsof working with PT, and was agreeable. 11/19/24 1520 PT Last Visit PT Received On 11/19/24 PT Time Calculation PT Start Time 1520 PT Stop Time 1605 PT Time Calculation (min) 45 min Precautions Medical Precautions Contact;Fall Risk;Limb restriction Safety Interventions Call burris within reach;ID band on;Bed alarm;Side rails up x1;Telesitter LLE Weight Bearing Status As Tolerated Orthopedic Precautions Posterior Hip Precautions (abd pillow when in bed) Orthoses Applied (abductor pillow in bed) Oxygen Therapy Oxygen Therapy Supplemental oxygen O2 Delivery Method Nasal cannula Pain Assessment Pain Assessment (pain managed well) Cognition Overall Cognitive Status Impaired Orientation Level Disoriented to situation Following Commands Follows one step commands with repetition;Follows one step commands with increased time Activity Tolerance Endurance Tolerates 30 min exercise with multiple rests Bed Mobility Sitting to Lying Assistance Maximum assistance Lying to Sitting Assistance Maximum assistance Transfers Sit to Stand Assistance Maximum assistance Ambulation Walking Assistance Moderate assistance Device Rolling walker Distance Ambulated (ft) 2 Procedures Procedures Therapeutic Activity Other Activity Other Activity 1 bed mobility training with focus on post hip precautions: (max assist for supine<->sitting but increased participation) Other Activity 2 scooting to EOB: min assist Other Activity 3 sit to stand transfers with focus on postural control/balance vcs to straighten knees and push down on handles. Other Activity 4 standing supported at rwalker, with mod assist for stability and postural control,for intervals up to 45 seconds Other Activity 5 ambulation: side stepping to either side and forwards/backwards (extensive vcs and assist.) PT Assessment PT Assessment Results Decreased strength;Decreased range of motion;Decreased endurance;Impaired balance;Impaired gait;Decreased mobility;Decreased coordination;Decreased cognition;Decreased safety awareness;Decreased skin integrity;Orthopedic restrictions;Pain;Other (Comment) (anxiety about falling) Prognosis Good Evaluation/Treatment Tolerance Patient tolerated treatment well Comments pt was I at [facility]; feel she is a good candidate for acute rehab Medical Staff Made Aware Yes Plan PT Discharge Recommendations Inpatient rehab facility placement;penitentiary facility placement PLAN Acute Care Plan: PT Plan: Skilled PT PT Frequency: Other (Comment) (BID) PT Discharge Recommendations: (P) Inpatient rehab facility placement, penitentiary facility placement Equipment Recommended: rwalker Time Spent: PT Time Calculation PT Start Time: 152 PT Stop Time: 1605 PT Time Calculation (min): 45 min Time Entry: Goals: Encounter Problems Encounter Problems (Active) Template: Physical Therapy Problem: PT Short Term Goals Dates: Start: 11/18/24 Goal: Patient will transfer supine<>sit with min assist Dates: Start: 11/18/24 Expected End: 11/20/24 Goal: Patient will transfer sit<>stand safely with min assist of 1 Dates: Start: 11/18/24 Expected End: 11/21/24 Goal: Patient will transfer supine<>sit with min assist Dates: Start: 11/19/24 Expected End: 11/21/24 Goal: Patient will transfer sit<>stand safely , min assist Dates: Start: 11/19/24 Expected End: 11/24/24 Encounter Problems (Resolved) There are no resolved problems. EDUCATION Education Documentation Explain information regarding therapeutic regimen, taught by Cecelia Perez PT at 11/19/2024 9:09 AM. Learner: Patient Readiness: Acceptance Method: Explanation Response: Verbalizes Understanding Comment: advised to use call burris for all needsrecommend str Teach information regarding safety precautions, taught by Cecelia Perez PT at 11/19/2024 9:09 AM. Learner: Patient Readiness: Acceptance Method: Explanation Response: Verbalizes Understanding Comment: advised to use call burris for all needsrecommend str Teach proper use of assistive devices, taught by Cecelia Perez PT at 11/19/2024 9:09 AM. Learner: Patient Readiness: Acceptance Method: Explanation Response: Verbalizes Understanding Comment: advised to use call burris for all needsrecommend str Education Comments No comments found. * Ashley Oliveira RN - 11/19/2024 2:36 PM EST CM Progress Note VAL: 11/21-11/22 Barriers: repeat CT scan for subdural hematoma, s/p L hip hemiarthroplasty on 11/17/24 Plan: SNF, pending accepting facility. HCP completed * Saundra Bucio MD - 11/19/2024 12:28 PM EST Images from the original note were not included. [facility] PROGRESS NOTE Date: 11/19/2024 Author: Saundra Bucio MD Patient ID: Isabela Rios is a 79 y.o. female : 1945 MR#: [id number] SUBJECTIVE CC: Here after fall resulting in subdural hematoma and left hip fracture. She feels better, she recognized me and remembered my name. She denies pain if she is till, happy about her breakfast. Would like to return home as soon as possible but understands not ready yet. She also understands that she may need to go to rehab. ROS: As above OBJECTIVE Vitals: 11/19/24 0905 BP: 129/56 Pulse: 80 Resp: 15 Temp: 36.6 ??C (97.8 ??F) SpO2: 100% Physical exam: General: fatigued, not in distress CVS: S1-S2 Resp: Clear lung Abd: NT, soft. Extr: Without peripheral edema, L hip dressing+ Neuro: Awake and alert, face is symmetric, moves all extremities with equal power Current Medications: acetaminophen, 1,000 mg, oral, q8h SADIE amLODIPine, 2.5 mg, oral, Daily citalopram, 30 mg, oral, Daily heparin (porcine), 5,000 Units, subcutaneous, q12h SADIE levothyroxine, 75 mcg, oral, Daily melatonin, 3 mg, oral, Nightly multivitamin, 1 tablet, oral, Daily pantoprazole, 40 mg, oral, q AM AC polyetheylene glycol, 17 g, oral, Daily senna-docusate, 2 tablet, oral, Nightly sodium chloride, 10 mL, intravenous, BID Oxygen Therapy, Adult, PRN medications: acetaminophen, hydrALAZINE, HYDROmorphone, magnesium hydroxide, naloxone, ondansetron, oxyCODONE, oxyCODONE, oxyCODONE, [COMPLETED] Insert peripheral IV AND Maintain IV access AND [COMPLETED] Saline lock IV AND sodium chloride AND sodium chloride HEMATOLOGY Lab Results Component Value Date WBC 8.1 11/19/2024 HGB 8.3 (L) 11/19/2024 HCT 25.8 (L) 11/19/2024 MCV 95.2 11/19/2024 PLT 165 11/19/2024 INR 1.0 11/14/2024 CHEMISTRY Lab Results Component Value Date GLUCOSE 97 11/19/2024 NA 139 11/19/2024 K 4.0 11/19/2024 CO2 27 11/19/2024 CL 108 11/19/2024 BUN 25 11/19/2024 CREATININE 0.71 11/19/2024 EGFR 88 11/19/2024 CALCIUM 8.1 (L) 11/19/2024 MG 2.0 11/15/2024 ANIONGAP 4 11/19/2024 Imaging: MR Brain wo Contrast Addendum: ADDENDUM: This report was discussed with Yolanda Barrera RN on Nov 18, 2024 20:12:00 EST. This document has been electronically signed by: Gloria Peña on 11/18/2024 20:12:27 Narrative: MR Brain without gadolinium Comparison: None Findings: [...] ethmoid air cells. No focal bone lesion. Impression: 1. Right subdural hematoma with additional thin falcine subdural hematoma measuring 2 mm. 2. Mild right cerebral sulcal crowding without midline shift or herniation This document has been electronically signed by: Estelle Jane MD on 11/18/2024 19:57:56 Transthoracic echocardiogram (TTE) complete with PRN contrast, bubble, strain, and 3D order panel Left ventricle cavity size is normal. Left ventricle mild hypertrophy.No regional LV wall motion abnormalities noted.Left ventricular systolic function is in the normal range with an ejection fraction of 55-60%. Right ventricle cavity is normal. Right ventricular systolic function is normal. Tricuspid Valve: Estimated RA pressure is 3 mmHg. The RVSP is estimated at 54 mmHg. There is very mild tricuspid insufficiency. There is trace to 1+ aortic valve insufficiency. No other significant valvular abnormalities. See other findings in the body of the study. No prior echo for comparison. CT Head wo Contrast Narrative: PROCEDURE: Noncontrast head CT. HISTORY: Subdural hematoma evaluate for expanding hematoma. COMPARISON: 11/15/2024. TECHNIQUE: Noncontrast head CT with coronal and sagittal reformats. Dose length product: 2140 mGy-cm. FINDINGS: Brain: Mixed attenuation subdural hematoma along the right convexity. This is unchanged in size. There is interval evolution of blood products, with a larger percentage of the collection appearing hypoattenuating than on the previous exam. No mass or CT evidence of an acute infarct. No CT evidence of an acute large vessel infarct. Ventricles and sulci are age commensurate. Atherosclerotic calcifications of the carotid siphons. Orbits: Lens implants and calcified senile scleral plaques. Sinuses/mastoids: Small amount of debris in the posterior right ethmoid air cells. Small amount of layering fluid in the central sphenoid sinus. Calvarium: Hyperostosis frontalis interna. Other: The skull base soft tissues are normal. Degenerative changes of the temporomandibular joints. Impression: Evolving subdural hematoma along the right frontal convexity. There is no significant interval change in size. -------- FINAL REPORT -------- Dictated By: Vinayak Austin Dictated Date: 11/18/2024 14:28 ET Assigned Physician: Vinayak Austin Reviewed and Electronically Signed By: Vinayak Austin Signed Date: 11/18/2024 14:33 ET Workstation ID: [id number] Transcribed By: Self Edit Transcribed Date: 11/18/2024 14:28 ET XR Hip 1 View Left Narrative: EXAMINATION: Imaging assistance provided during a procedure [...] femoral head is been resected. There are softtissue surgical changes. Impression: Intraoperative portable views of the left hip region during orthopedic surgery -------- FINAL REPORT -------- Dictated By: Yordy Garcia Dictated Date: 11/18/2024 06:55 ET Assigned Physician: Yordy Garcia Reviewed and Electronically Signed By: Yordy Garcia Signed Date: 11/18/2024 06:58 ET Workstation ID: [id number] Transcribed By: Self Edit Transcribed Date: 11/18/2024 06:55 ET ASSESSMENT & PLAN Isabela Rois is a 79 y.o. female with PMH of HTN hyperlipidemia, hypothyroidism, osteopenia, depression/anxiety, brought into ED after she was found down on the kitchen floor by her , reportedly she was wandering at night and fell also she could not recall the circumstances, she was noted to be confused and agitated in ED requiring soft restraints. At the baseline she did not use any assistive device for ambulation but frequent falls reported prior to this event. In ED she was afebrile and hemodynamically stable. CBC with mild leukocytosis with WBC 11.6 hemoglobin 12.3, BUN 24 creatinine 0.9 TSH was elevated at 48, respiratory viral panel was negative, EKG showed normal sinus rhythm with nonspecific T wave abnormality QTc 495, CT head revealed 8 mm subduralhematoma along the right convexity. X-ray of the left hip revealed acute transcervical femoral neckfracture. CT left lower extremity confirmed impacted and angulated left femoral neck fracture. Chest x-ray was suspicious for pulmonary vascular congestion. High sensitive troponin 10 x 10, CK was 668. UA was abnormal with proteinuria trace ketones moderate blood 28 WBCs 9 RBCs and many bacteria. She was admitted. Neurosurgery and orthopedic surgery consulted. For subdural conservative management was recommended, repeat CT head remained stable. Left hip fracture repair planned for today. Of note, she was noted to be hypoxic on the morning of 11/16/2024 with oxygen saturation 85% she wasplaced on O2 and CTA was obtained which did not demonstrate evidence of PE. Small bilateral pleuraleffusions noted. # SDH -treated conservatively as recommended by neurosurgery. After hip surgery DVT prophylaxis was recommended and after review with neurosurgery and discussionwith family /patient -it was decided to start her on small dose of heparin prophylaxis and monitor her neurological status closely with repeat CT head in 48 hours. She is doing well currently with nonew neurological findings. # Acute encephalopathy, dysarthria-likely due to subdural hematoma/? UTI and acute hospitalization contributing. Some improvement noted by family. She still with slurred/dysarthric speech at times and I would like to rule out CVA, - MRI lucille did not reveal acute CVA. Full report as above. It did demonstrate additional smaller size subdural hematoma along the interhemispheric falx measuring 2 mm,original subdural hematoma proximately 10 mm in size. Overall mental status is much improved and speech is also better, she has occasional word finding difficulties. # Left hip fracture - s/p L hip hemiarthroplasty on 11/17/[address] Hester. # Probable UTI - urine culture with ESBL Eoli, resistant to quinolones.. Ceftriaxone stopped and she was administered 1 dose of fosfomycin. HTN -reportedly Norvasc was recently discontinued by PCP due to low blood pressure. Blood pressure was elevated on the morning of 11/17 with systolic 180 and initiated her on small dose of amlodipine 2.5 with as needed hydralazine. Monitor BP closely and adjust as needed. Hypothyroidism -TSH is elevated, Synthroid dose was increased on admission to 75 mcg daily(from 50). Compliance was questioned. We will review with this patient and family. She will need outpatient monitoring. Depression anxiety -she is on Celexa. Anemia?ACD - component of acute blood loss from surgery likely contributing. Monitor. Mild hypokalemia -replaced, resolved. DVT ppx -SCD, heparin 5000 units twice daily while carefully monitoring neurological status. RepeatCT head planned 48 hours after initiation of prophylactic anticoagulation. Code status - presumed full Dispo - PT eval --- will need rehab. Need to monitor 48 hours to confirm she could tolerate prophylactic anticoagulation without worsening neurological status. HCP -daughter Rachel Bernard and [place]. I spoke with Rachel Bernard today over the phone and reviewed the plan. She wanted to touch base with case management and this was conveyed to our case repairer. * FRANCES Herrera - 11/19/2024 10:04 AM EST No acute events overnight Patient is doing well. Denies any STYLES or visual changes. No nausea or vomiting, tolerating diet Objective Last Recorded Vitals: Blood pressure 129/56, pulse 80, temperature 36.6 ??C (97.8 ??F), temperature source Temporal, resp. rate 15, height 1.651 m (65 ), weight 65.8 kg (144 lb 15.9 oz), SpO2 100%. Vitals: 11/18/24 2353 11/19/24 0340 11/19/24 0841 11/19/24 0905 BP: 114/59 129/62 134/68 129/56 BP Location: Left arm Left arm Patient Position: Lying Lying Pulse: 83 80 82 80 Resp: 16 16 16 15 Temp: 36.4 ??C (97.6 ??F) 36.3 ??C (97.3 ??F) 36.9 ??C (98.5 ??F) 36.6 ??C (97.8 ??F) TempSrc: Temporal Temporal SpO2: 93% 100% 100% 100% Weight: Height: LABS HEMATOLOGY Lab Results Component Value Date WBC 8.1 11/19/2024 HGB 8.3 (L) 11/19/2024 HCT 25.8 (L) 11/19/2024 MCV 95.2 11/19/2024 PLT 165 11/19/2024 CHEMISTRY Lab Results Component Value Date GLUCOSE 97 11/19/2024 NA 139 11/19/2024 K 4.0 11/19/2024 CO2 27 11/19/2024 CL 108 11/19/2024 BUN 25 11/19/2024 CREATININE 0.71 11/19/2024 EGFR 88 11/19/2024 CALCIUM 8.1 (L) 11/19/2024 MG 2.0 11/15/2024 ANIONGAP 4 11/19/2024 Imaging: MR Brain wo Contrast Addendum: ADDENDUM: This report was discussed with Yolanda Barrera RN on Nov 18, 2024 20:12:00 EST. This document has been electronically signed by: Gloria Peña on 11/18/2024 20:12:27 Narrative: MR Brain without gadolinium Comparison: None Findings: [...] ethmoid air cells. No focal bone lesion. Impression: 1. Right subdural hematoma with additional thin falcine subdural hematoma measuring 2 mm. 2. Mild right cerebral sulcal crowding without midline shift or herniation This document has been electronically signed by: Estelle Jane MD on 11/18/2024 19:57:56 Transthoracic echocardiogram (TTE) complete with PRN contrast, bubble, strain, and 3D order panel Left ventricle cavity size is normal. Left ventricle mild hypertrophy.No regional LV wall motion abnormalities noted.Left ventricular systolic function is in the normal range with an ejection fraction of 55-60%. Right ventricle cavity is normal. Right ventricular systolic function is normal. Tricuspid Valve: Estimated RA pressure is 3 mmHg. The RVSP is estimated at 54 mmHg. There is very mild tricuspid insufficiency. There is trace to 1+ aortic valve insufficiency. No other significant valvular abnormalities. See other findings in the body of the study. No prior echo for comparison. CT Head wo Contrast Narrative: PROCEDURE: Noncontrast head CT. HISTORY: Subdural hematoma evaluate for expanding hematoma. COMPARISON: 11/15/2024. TECHNIQUE: Noncontrast head CT with coronal and sagittal reformats. Dose length product: 2140 mGy-cm. FINDINGS: Brain: Mixed attenuation subdural hematoma along the right convexity. This is unchanged in size. There is interval evolution of blood products, with a larger percentage of the collection appearing hypoattenuating than on the previous exam. No mass or CT evidence of an acute infarct. No CT evidence of an acute large vessel infarct. Ventricles and sulci are age commensurate. Atherosclerotic calcifications of the carotid siphons. Orbits: Lens implants and calcified senile scleral plaques. Sinuses/mastoids: Small amount of debris in the posterior right ethmoid air cells. Small amount of layering fluid in the central sphenoid sinus. Calvarium: Hyperostosis frontalis interna. Other: The skull base soft tissues are normal. Degenerative changes of the temporomandibular joints. Impression: Evolving subdural hematoma along the right frontal convexity. There is no significant interval change in size. -------- FINAL REPORT -------- Dictated By: Vinayak Austin Dictated Date: 11/18/2024 14:28 ET Assigned Physician: Vinayak Austin Reviewed and Electronically Signed By: Vinayak Austin Signed Date: 11/18/2024 14:33 ET Workstation ID: [id number] Transcribed By: Self Edit Transcribed Date: 11/18/2024 14:28 ET XR Hip 1 View Left Narrative: EXAMINATION: Imaging assistance provided during a procedure [...] femoral head is been resected. There are softtissue surgical changes. Impression: Intraoperative portable views of the left hip region during orthopedic surgery -------- FINAL REPORT -------- Dictated By: Yordy Garcia Dictated Date: 11/18/2024 06:55 ET Assigned Physician: Yordy Garcia Reviewed and Electronically Signed By: Yordy Garcia Signed Date: 11/18/2024 06:58 ET Workstation ID: [id number] Transcribed By: Self Edit Transcribed Date: 11/18/2024 06:55 ET Physical Exam Constitutional: General: No acute distress. Appearance: Not ill-appearing. HENT: Head: left periorbital and forehead ecchymoses Mouth: Mucous membranes are moist. Eyes: Extraocular Movements: Extraocular movements intact. Conjunctiva/sclera: Conjunctivae Normal Cardiac: Rate and Rhythm: Normal rate. Pulmonary: Respirations unlabored. Abdominal: General: There is no distension. Palpations: Abdomen is soft. Tenderness: There is no abdominal tenderness. There is no guarding or rebound. Musculoskeletal: Right lower leg: No edema. Left lower leg: No edema. Neurological: General: No focal deficit present. Mental Status: Patient is alert and oriented to person, [facility] , and year. Cranial Nerves: No cranial nerve deficit. Motor exam shows 5/5 strength in UEs and LEs bilaterally (right iliopsoas and quads deferred secondary to hip fracture. Output by Drain (mL) 11/17/24 0700 - 11/17/24 1859 11/17/24 1900 - 11/18/24 0659 11/18/24 0700 - 11/18/24 1859 11/18/24 1900 - 11/19/24 0659 11/19/24 0700 - 11/19/24 1004 Patient has no LDAs of requested type attached. Intake/Output Summary (Last 24 hours) at 11/19/2024 1004 Last data filed at 11/19/2024 0800 Gross per 24 hour Intake -- Output 500 ml Net -500 ml Assessment/Plan Principal Problem: Acute subdural hematoma (CMS/HCC) Hospital day 6 s/p fall resulting in right frontal convexity acute SDH and left hip fracture. Patient underwent left hip hemiarthroplasty with Dr. Hester on 11/17/24. Head CT has been stable. SQ Heparin started yesterday for DVT prophylaxis. Discussed with Evangelina Lopez PA-C, Dr. Presley from Orthopedics and Dr. Yeboah from Neurosurgery at [place]. Patient is neurologically stable. Will continue to follow. * FRANCES Arnold - 11/19/2024 10:01 AM EST Images from the original note were not included. Orthopedic Trauma Progress Note Reason for Visit: Left femoral neck fracture Surgery: Left hip hemiarthroplasty performed by Dr Hester on 11/17/24 SUBJECTIVE: Pt found resting comfortably reporting mild pain . Pain is controlled on current oral regimen. She has been monitored in [facility] due to SDH. Discussed in length with neurosurgery and family yesterday regarding heparin for dvt prophylaxis and agreeable to start heparin with repeat ct head in 48 hours. Review of systems: Patient does not report headaches, shortness breath, chest pain, lightheadedness, abdominal pain, nausea or vomiting OBJECTIVE Vitals: 11/19/24 0905 BP: 129/56 Pulse: 80 Resp: 15 Temp: 36.6 ??C (97.8 ??F) SpO2: 100% Scheduled Medications PRN Medications IV Medications acetaminophen, 1,000 mg, q8h SADIE amLODIPine, 2.5 mg, Daily citalopram, 30 mg, Daily heparin (porcine), 5,000 Units, q12h SADIE levothyroxine, 75 mcg, Daily melatonin, 3 mg, Nightly multivitamin, 1 tablet, Daily pantoprazole, 40 mg, q AM AC polyetheylene glycol, 17 g, Daily senna-docusate, 2 tablet, Nightly sodium chloride, 10 mL, BID acetaminophen, 650 mg, q6h PRN hydrALAZINE, 10 mg, q6h PRN HYDROmorphone, 0.5 mg, q3h PRN magnesium hydroxide, 30 mL, Daily PRN naloxone, 0.04 mg, PRN ondansetron, 4 mg, q6h PRN oxyCODONE, 2.5 mg, q4h PRN oxyCODONE, 5 mg, q4h PRN oxyCODONE, 5 mg, q4h PRN sodium chloride, 10 mL, PRN Oxygen Therapy, Adult Labs Hematology Lab Results Component Value Date WBC 8.1 11/19/2024 HGB 8.3 (L) 11/19/2024 HCT 25.8 (L) 11/19/2024 MCV 95.2 11/19/2024 PLT 165 11/19/2024 Chemistry Lab Results Component Value Date GLUCOSE 97 11/19/2024 NA 139 11/19/2024 K 4.0 11/19/2024 CO2 27 11/19/2024 CL 108 11/19/2024 BUN 25 11/19/2024 CREATININE 0.71 11/19/2024 EGFR 88 11/19/2024 CALCIUM 8.1 (L) 11/19/2024 MG 2.0 11/15/2024 ANIONGAP 4 11/19/2024 Lab Results Component Value Date ALT 40 11/14/2024 AST 52 (H) 11/14/2024 BILITOT 1.0 11/14/2024 ALKPHOS 81 11/14/2024 ALBUMIN 3.9 11/14/2024 PROT 6.8 11/14/2024 TSH 48.69 (H) 11/14/2024 INR 1.0 11/14/2024 Lab Results Component Value Date URINECX >100,000 CFU/mL Escherichia coli ESBL (A) 11/14/2024 Physical Exam General: no acute distress, cooperative HEENT: Normocephalic, atraumatic, EOMI Skin: Warm, dry Cardiac: No JVD, no peripheral edema Pulmonary: Equal chest rise, no increased work of breathing Musculoskeletal: Surgical dressing C/D/I, M+S intact distally, abduction pillow in place Vascular: extremities WWP, pulses palpable Neuro: A+O ?? 3, No focal deficits Psych: Normal affect, good eye contact ASSESSMENT/PLAN Isabela Rios is a 79 y.o. female with a Acute subdural hematoma (CMS/HCC) as well as a femoral neck fracture of the left hip. Surgery delayed due to SDH. Now POD#3 left hip hemiarthroplasty Antibiotics Ancef 2g IV q6 hours x 3 doses post op Analgesia: as charted and ordered, limit opiates and wean off as soon as possible Anticoagulation: heparin sc, repeat Ct head w/o on 11/21/24. Activity: PT/OT/WB: WBAT LLE. Initiate PT. Abduction pillow while in bed, keeps straps loose. Anything else: Follow up with us in 2 weeks Discussed and reviewed with Dr Presley, orthopedic surgery attending FRANCES Arnold Orthopedic Surgery 11/19/2024 10:01 AM EST * FRANCES Hardwick - 11/18/2024 4:37 PM EST Patient seen this morning with Dr. Presley. The patient is at high risk for VTE due to hip fracture and prolonged immobility. We reached out to neurosurgery to discuss options as it was their recommendation to withhold all anticoagulation status post acute subdural hematoma for a minimum or 2-3 weeks. Neurosurgery did have a conversation with the family in regards to the risks of VTE after hip fracture and why anticagulation is usually indicated as well as the risk of worsening SDH if placed on anticoagulation. It was decided that we will get a CT scan to evaluate the progression of the subdural hematoma today which is over 72 hours after the injury and then talk to family and reassess if anti coagulation would be appropriate. Neurosurgery was able to weigh in that heparin would be preferable over aspirin as it can be reversible if there are any signs of neurological decline which time we will promptly discontinue heparin and get a CT scan. Returned to the patient's bedside after the scan was complete. See full report below. It appears that the subdural hematoma is stable in size. A very thorough conversation was had with the patient with her and neighbor at the bedside discussing all of the risks including worsening of the subdural hematoma with neurological deficit as well as the risk of a VTE which can be life-threatening. She was advised to continue to mobilize and stay hydrated as well to reduce the risk of VTE. All questions answered to the satisfaction of the patient and the family. The patient was able to participate fully in this conversation and comprehended all of the information with appropriate responses. She does have some trouble with word finding but has been steadily improving per her . I did advise her to pay close attention if there is any signs of worsening of her cognition or speech or other neurological impairments to not hesitate to reach out to the nurse. Patient and family find further time to think about it and would like to proceed with heparin. This will be communicated to both Ashley and neurosurgery teams. I anticipate we will monitor the patient closely for minimum of 48 hours after initiating anticoagulation and repeat CT scan in the next 48 to 72 hours. This case and conversation were discussed withDr. Presley who is in agreement. PROCEDURE: Noncontrast head CT. HISTORY: Subdural hematoma evaluate for expanding hematoma. COMPARISON: 11/15/2024. TECHNIQUE: Noncontrast head CT with coronal and sagittal reformats. Dose length product: 2140 mGy-cm. FINDINGS: Brain: Mixed attenuation subdural hematoma along the right convexity. This is unchanged in size. There is interval evolution of blood products, with a larger percentage of the collection appearing hypoattenuating than on the previous exam. No mass or CT evidence of an acute infarct. No CT evidence of an acute large vessel infarct. Ventricles and sulci are age commensurate. Atherosclerotic calcifications of the carotid siphons. Orbits: Lens implants and calcified senile scleral plaques. Sinuses/mastoids: Small amount of debris in the posterior right ethmoid air cells. Small amount of layering fluid in the central sphenoid sinus. Calvarium: Hyperostosis frontalis interna. Other: The skull base soft tissues are normal. Degenerative changes of the temporomandibular joints. IMPRESSION: Evolving subdural hematoma along the right frontal convexity. There is no significant interval change in size. -------- FINAL REPORT -------- Dictated By: Vinayak Austin Dictated Date: 11/18/2024 14:28 ET Assigned Physician: Vinayak Austin Reviewed and Electronically Signed By: Vinayak Austin Signed Date: 11/18/2024 14:33 ET Workstation ID: [id number] Transcribed By: Self Edit Transcribed Date: 11/18/2024 14:28 ET * FRANCES Herrera - 11/18/2024 4:13 PM EST We were contacted this morning by FRANCES Hardwick from orthopedics regarding Ms. Rios. Ms. Rios had hip surgery on Sunday. The orthopedic service is requesting the use of SQ heparin or 81 mg aspirin twice daily for DVT prophylaxis. I explained that we avoid aspirin, NSAIDs, pharmacologic DVT pr ophylaxis and anticoagulation in patients with an acute or subacute subdural hematoma. I offered that an alternative would be to place an IVC filter. They asked that I discuss with an attending and Idid discuss this with Dr. Yeboah. Dr. Yeboah said that SQ heparin was acceptable if they documenteda conversation with the family explaining the associated risk of increased intracranial hemorrhage.A head CT was ordered revealing evolution of the hemorrhage with some hypoattenuating components atthis time indicating that it is transitioning to subacute. If heparin therapy is initiated, orthopedics plans to get a repeat head CT in 48 hours. It should be obtained sooner if the patient has any change in her neurologic examination. * Cecelia Perez PT - 11/18/2024 3:05 PM EST Patient: Isabela Rios Age: 79 y.o. Sex: female Acute subdural hematoma (CMS/HCC) [facility] Physical Therapy Evaluation PLOF: Level of [place]: Independent with mobility and functional transfers Lives With: Spouse Type of Home: House Home Access: Stairs to enter with rails DME Needs: monae PT Discharge Recommendation: pen[facility]entiary facility placement Reason for current recommendation based on assessment: Based on pt's current level of function, pt is not safe to return home at this time and will need skilled PT interventions to regain strength and mobility. I am recommending skilled subacute rehab at d/c to address impairments, progress mobility, lower fall risk, reduce caregiver burden, and return to prior level of function. SUBJECTIVE RN approved pt. for PT visit at this time. Pt. was educated on the PT role, understood the benefitsof working with PT, and was agreeable. Past Medical History: Diagnosis Date Anxiety 06/11/2017 DX:Anxiety Depression 07/06/2017 DX:Depression HTN (hypertension) 06/11/2017 DX:HTN (hypertension) HTN (hypertension) DX:HTN (hypertension) HTN (hypertension) DX:HTN (hypertension) Hypothyroidism 06/11/2017 DX:Hypothyroidism Hypothyroidism DX:Hypothyroidism Osteopenia 07/06/2017 DX:Osteopenia Past Surgical History: Procedure Laterality Date WISDOM TOOTH EXTRACTION PROCEDURE: HISTORICAL WISDOM TEETH EXTRACTION 11/18/24 1305 PT Last Visit PT Received On 11/18/24 General Family/Caregiver Present Yes PT Time Calculation PT Start Time 1305 PT Stop Time 1358 PT Time Calculation (min) 53 min Precautions Medical Precautions Contact;Fall Risk;Limb restriction LLE Weight Bearing Status As Tolerated Orthopedic Precautions Posterior Hip Precautions (abd pillow when in bed) Oxygen Therapy O2 Flow Rate (L/min) 3 L/min Pain Assessment Pain Assessment 0-10 Pain Location Hip Pain Orientation Left Cognition Overall Cognitive Status Impaired Cognition Comments impaired motor planning (slow processing) Home Living Type of Home House Lives With Spouse Home Access Stairs to enter with rails Entrance Stairs-Rails Rail on both sides Entrance Stairs-Number of Steps 2 Prior Function Level of [place] Independent with mobility and functional transfers Indoor Mobility Assistance Independent Stairs Assistance Independent Activity Tolerance Endurance Tolerates 30 min exercise with multiple rests Static Sitting Balance Static Sitting-Comment/Number of Minutes good Dynamic Sitting Balance Dynamic Sitting-Comments fair Static Standing Balance Static Standing-Comment/Number of Minutes poor+ Dynamic Standing Balance Dynamic Standing-Comments poor Bed Mobility Sitting to Lying Assistance Maximum assistance Lying to Sitting Assistance Maximum assistance Transfers Sit to Stand Assistance Maximum assistance Transfer Comments recommend assist x 2 Ambulation Walking Assistance Moderate assistance Device Rolling walker Distance Ambulated (ft) 2 RUE Assessment RUE Assessment Impaired LUE Assessment LUE Assessment Impaired RLE Assessment RLE Assessment Impaired LLE Assessment LLE Assessment Impaired PT Assessment PT Assessment Results Decreased strength;Decreased range of motion;Decreased endurance;Impaired balance;Impaired gait;Decreased mobility;Decreased coordination;Decreased cognition;Impaired judgement;Decreased safety awareness;Orthopedic restrictions;Decreased skin integrity;Pain Prognosis Good Evaluation/Treatment Tolerance Patient tolerated treatment well Medical Staff Made Aware Yes Plan PT Plan Skilled PT PT Frequency Other (Comment) (BID) PT Discharge Recommendations penitentiary facility placement Equipment Recommended rwalker PT - Evaluation Status Complete PT Evaluation Time Entry PT Evaluation (Moderate) Time Entry 53 PLAN Acute Care Plan: PT Plan: Skilled PT PT Frequency: Other (Comment) (BID) PT Discharge Recommendations: penitentiary facility placement Equipment Recommended: rwanayer Encounter Problems Encounter Problems (Active) Template: Physical Therapy Problem: PT Short Term Goals Dates: Start: 11/18/24 Goal: Patient will transfer supine<>sit with min assist Dates: Start: 11/18/24 Expected End: 11/20/24 Goal: Patient will transfer sit<>stand safely with min assist of 1 Dates: Start: 11/18/24 Expected End: 11/21/24 Encounter Problems (Resolved) There are no resolved problems. EDUCATION Education Documentation No documentation found. Education Comments No comments found. Cecelia Perez PT * Cecelia Perez PT - 11/18/2024 2:00 PM EST Physical Therapy Therapy session was attempted for Isabela Rios by Cecelia Perez PT on 11/18/2024. The patient was unable to be seen for the following reason(s): Out of room at a medical procedure-mri Plan for return visit: As soon as possible * Kathleen Martins OT - 11/18/2024 2:00 PM EST Therapy session was attempted for Isabela Rios by Kathleen Martins OT on 11/18/2024. The patient was unable to be seen for the following reason(s): Out of room at a medical procedure. Pt at MRI at this time Plan for return visit: As soon as possible * Saundra Bucio MD - 11/18/2024 12:09 PM EST Images from the original note were not included. SELAM PROGRESS NOTE Date: 11/18/2024 Author: Saundra Bucio MD Patient ID: Isabela Rios is a 79 y.o. female : 1945 MR#: [id number] SUBJECTIVE CC: Here after fall resulting in subdural hematoma and left hip fracture. She feels ok, no pain if she does not move, somewhat confused but was able to recall my name, and remembered me from yesterday She slept well. She states her speech seems stuttering but this is not normal for her, present since her fall. ROS: As above OBJECTIVE Vitals: 11/18/24 1010 BP: 106/51 Pulse: Resp: Temp: SpO2: Physical exam: General: fatigued, not in distress CVS: S1-S2 Resp: Clear lung Abd: NT, soft. Extr: Without peripheral edema, L hip dressing+ Neuro: Awake and alert Current Medications: acetaminophen, 1,000 mg, oral, q8h SADIE amLODIPine, 2.5 mg, oral, Daily citalopram, 30 mg, oral, Daily levothyroxine, 75 mcg, oral, Daily melatonin, 3 mg, oral, Nightly multivitamin, 1 tablet, oral, Daily pantoprazole, 40 mg, oral, q AM AC polyetheylene glycol, 17 g, oral, Daily senna-docusate, 2 tablet, oral, Nightly sodium chloride, 10 mL, intravenous, BID Oxygen Therapy, Adult, PRN medications: acetaminophen, hydrALAZINE, HYDROmorphone, magnesium hydroxide, naloxone, ondansetron, oxyCODONE, oxyCODONE, oxyCODONE, [COMPLETED] Insert peripheral IV AND Maintain IV access AND [COMPLETED] Saline lock IV AND sodium chloride AND sodium chloride HEMATOLOGY Lab Results Component Value Date WBC 8.2 11/18/2024 HGB 9.0 (L) 11/18/2024 HCT 27.8 (L) 11/18/2024 MCV 94.2 11/18/2024 PLT 158 11/18/2024 INR 1.0 11/14/2024 CHEMISTRY Lab Results Component Value Date GLUCOSE 119 (H) 11/18/2024 NA 140 11/18/2024 K 4.7 11/18/2024 CO2 25 11/18/2024 CL 108 11/18/2024 BUN 27 (H) 11/18/2024 CREATININE 0.89 11/18/2024 EGFR 67 11/18/2024 CALCIUM 8.4 (L) 11/18/2024 MG 2.0 11/15/2024 ANIONGAP 7 11/18/2024 Imaging: XR Hip 1 View Left Narrative: EXAMINATION: Imaging assistance provided during a procedure [...] femoral head is been resected. There are softtissue surgical changes. Impression: Intraoperative portable views of the left hip region during orthopedic surgery -------- FINAL REPORT -------- Dictated By: Yordy Garcia Dictated Date: 11/18/2024 06:55 ET Assigned Physician: Yordy Garcia Reviewed and Electronically Signed By: Yordy Garcia Signed Date: 11/18/2024 06:58 ET Workstation ID: [id number] Transcribed By: Self Edit Transcribed Date: 11/18/2024 06:55 ET ASSESSMENT & PLAN Isabela Rios is a 79 y.o. female with PMH of HTN hyperlipidemia, hypothyroidism, osteopenia, depression/anxiety, brought into ED after she was found down on the kitchen floor by her , reportedly she was wandering at night and fell also she could not recall the circumstances, she was noted to be confused and agitated in ED requiring soft restraints. At the baseline she did not use any assistive device for ambulation but frequent falls reported prior to this event. In ED she was afebrile and hemodynamically stable. CBC with mild leukocytosis with WBC 11.6 hemoglobin 12.3, BUN 24 creatinine 0.9 TSH was elevated at 48, respiratory viral panel was negative, EKG showed normal sinus rhythm with nonspecific T wave abnormality QTc 495, CT head revealed 8 mm subduralhematoma along the right convexity. X-ray of the left hip revealed acute transcervical femoral neckfracture. CT left lower extremity confirmed impacted and angulated left femoral neck fracture. Chest x-ray was suspicious for pulmonary vascular congestion. High sensitive troponin 10 x 10, CK was 668. UA was abnormal with proteinuria trace ketones moderate blood 28 WBCs 9 RBCs and many bacteria. She was admitted. Neurosurgery and orthopedic surgery consulted. For subdural conservative management was recommended, repeat CT head remained stable. Left hip fracture repair planned for today. Of note, she was noted to be hypoxic on the morning of 11/16/2024 with oxygen saturation 85% she wasplaced on O2 and CTA was obtained which did not demonstrate evidence of PE. Small bilateral pleuraleffusions noted. Report as above. # SDH -treated conservatively as recommended by neurosurgery. Repeat CT in 2 to 3 weeks and follow-up in the office recommended. No anticoagulation. # Acute encephalopathy, dysarthria-likely due to subdural hematoma/? UTI and acute hospitalization contributing. Some improvement noted by family. She still with slurred/dysarthric speech at times and I would like to rule out CVA, MRI lucille ordered and reviewed with pt and her HCP. # Left hip fracture - s/p L hip hemiarthroplasty on 11/17/[address] Hester. # Probable UTI - urine culture with ESBL Eoli, resistant to quinolones.. Ceftriaxone stopped and she was administered 1 dose of fosfomycin. HTN -reportedly Norvasc was recently discontinued by PCP due to low blood pressure. Blood pressure was elevated on the morning of 11/17 with systolic 180 and initiated her on small dose of amlodipine 2.5 with as needed hydralazine. Monitor BP closely and adjust as needed. Hypothyroidism -TSH is elevated, Synthroid dose was increased on admission to 75 mcg daily(from 50). Compliance was questioned. We will review with this patient and family. She will need outpatient monitoring. Depression anxiety -she is on Celexa. Anemia?ACD - component of acute blood loss from surgery likely contributing. Monitor. Mild hypokalemia -replaced, resolved. DVT ppx -CT chemical prophylaxis contraindicated due to subdural hematoma Code status -presumed full Dispo -PT eval. No need for further telemetry. HCP -daughter Rachel Bernard and Tucker. I spoke with Rachel Bernard today over the phone and reviewed the plan including MRI brain. * Cecelia Perez PT - 11/18/2024 9:37 AM EST Physical Therapy Therapy session was attempted for Isabela Rios by Cecelia Perez PT on 11/18/2024. The patient was unable to be seen for the following reason(s): Out of room at a medical procedure Plan for return visit: As soon as possible * Kathleen Martins OT - 11/18/2024 9:15 AM EST Therapy session was attempted for Isabela Rios by Kathleen Martins OT on 11/18/2024. The patient was unable to be seen for the following reason(s): Out of room at a medical procedure Plan for return visit: As soon as possible * FRANCES Hardwick - 11/18/2024 8:22 AM EST Images from the original note were not included. Orthopedic Trauma Progress Note Reason for Visit: Left femoral neck fracture Surgery: Left hip hemiarthroplasty performed by Dr Hester on 11/17/24 SUBJECTIVE: Pt found resting comfortably reporting mild pain . Pain is controlled on current oral regimen. She ahs been monitored in [facility] due to SDH. Seen by Neurosurgery pre-op who recommended no anticoagulationand follow up in 2-3 weeks. Pt with sitter who states some slurred speech but otherwise more talkative today. Having some trouble with word finding. No overnight events or other complaints reported at this time. Review of systems: Patient does not report headaches, shortness breath, chest pain, lightheadedness, abdominal pain, nausea or vomiting OBJECTIVE Vitals: 11/18/24 0317 BP: 112/55 Pulse: 81 Resp: 16 Temp: 36.6 ??C (97.9 ??F) SpO2: 96% Scheduled Medications PRN Medications IV Medications acetaminophen, 1,000 mg, q8h SADIE amLODIPine, 2.5 mg, Daily citalopram, 30 mg, Daily levothyroxine, 75 mcg, Daily melatonin, 3 mg, Nightly multivitamin, 1 tablet, Daily pantoprazole, 40 mg, q AM AC polyetheylene glycol, 17 g, Daily senna-docusate, 2 tablet, Nightly sodium chloride, 10 mL, BID acetaminophen, 650 mg, q6h PRN hydrALAZINE, 10 mg, q6h PRN HYDROmorphone, 0.5 mg, q3h PRN magnesium hydroxide, 30 mL, Daily PRN naloxone, 0.04 mg, PRN ondansetron, 4 mg, q6h PRN oxyCODONE, 2.5 mg, q4h PRN oxyCODONE, 5 mg, q4h PRN oxyCODONE, 5 mg, q4h PRN sodium chloride, 10 mL, PRN Oxygen Therapy, Adult Labs Hematology Lab Results Component Value Date WBC 8.2 11/18/2024 HGB 9.0 (L) 11/18/2024 HCT 27.8 (L) 11/18/2024 MCV 94.2 11/18/2024 PLT 158 11/18/2024 Chemistry Lab Results Component Value Date GLUCOSE 119 (H) 11/18/2024 NA 140 11/18/2024 K 4.7 11/18/2024 CO2 25 11/18/2024 CL 108 11/18/2024 BUN 27 (H) 11/18/2024 CREATININE 0.89 11/18/2024 EGFR 67 11/18/2024 CALCIUM 8.4 (L) 11/18/2024 MG 2.0 11/15/2024 ANIONGAP 7 11/18/2024 Lab Results Component Value Date ALT 40 11/14/2024 AST 52 (H) 11/14/2024 BILITOT 1.0 11/14/2024 ALKPHOS 81 11/14/2024 ALBUMIN 3.9 11/14/2024 PROT 6.8 11/14/2024 TSH 48.69 (H) 11/14/2024 INR 1.0 11/14/2024 Lab Results Component Value Date URINECX >100,000 CFU/mL Escherichia coli ESBL (A) 11/14/2024 Physical Exam General: no acute distress, cooperative HEENT: Normocephalic, ecchymosis over left orbit, EOMI Skin: Warm, dry Cardiac: No JVD, no peripheral edema Pulmonary: Equal chest rise, no increased work of breathing Musculoskeletal: Surgical dressing C/D/I, M+S intact distally, abduction pillow in place Vascular: extremities WWP, pulses palpable Neuro: A+O ?? 3, No focal deficits Psych: Normal affect, good eye contact ASSESSMENT/PLAN Isabela Rios is a 79 y.o. female with a Acute subdural hematoma (CMS/HCC) as well as a femoral neck fracture of the left hip. Surgery delayed due to SDH. Now POD#1 left hip hemiarthroplasty Antibiotics Ancef 2g IV q6 hours x 3 doses post op Analgesia: as charted and ordered, limit opiates and wean off as soon as possible Anticoagulation: No formal DVT prophylaxis indicated. Continue mobilization and stay hydrated with plenty of fluids. - Will discuss further with neurosurgery on this Activity: PT/OT/WB: WBAT LLE. Initiate PT. Abduction pillow while in bed, keeps straps loose. Anything else: Follow up with us in 2 weeks Discussed and reviewed with Dr. Presley, orthopedic surgery attending FRANCES Hardwick Orthopedic Surgery 11/18/2024 8:22 AM EST * Saundra Bucio MD - 11/17/2024 3:48 PM EST Images from the original note were not included. SELAM PROGRESS NOTE Date: 11/17/2024 Author: Saundra Bucio MD Patient ID: Isabela Rios is a 79 y.o. female : 1945 MR#: [id number] SUBJECTIVE CC: Here after fall resulting in subdural hematoma and left hip fracture. Seen first time. Family- and daughter at the bedside. Sitter reported that she did sleep on and off and did not require any interventions. She is mildly confused, she knows she is in the hospital and would like to go home as soon as possible. She was not aware of potential surgery today and this was explained. She did report that she fell and hurt her hip. She could not tell me exact date but she recognized her family, and she was able to recall my name when asked at the end of my interview. She could tell me that she normally takes sleeping aid at home and confirmed this, it is [id number] medication. Some abdominal discomfort was reported, mid abdomen,+ constipation, no BM since admission. No significant pain currently. She is worried that her speech is still not normal/stuttering a bit and she wants me to know that this is not her normal way of talking. Care reviewed with her daughter Rachel Bernard, later on I helped her to fill out healthcare proxy. Patient understood what it meant and wanted to designate both her daughter and her . ROS: As above OBJECTIVE Vitals: 11/17/24 1530 BP: (!) 127/98 Pulse: 107 Resp: 19 Temp: SpO2: 97% Physical exam: General: Fatigued and somewhat anxious appearing CVS: S1-S2 Resp: Clear lung Abd: Soft mild tenderness noted in epigastric area Extr: Without peripheral edema Neuro: Awake and alert Current Medications: acetaminophen, 1,000 mg, oral, q8h SADIE acetaminophen, 650 mg, oral, Once [Transfer Hold] amLODIPine, 2.5 mg, oral, Daily ceFAZolin, 2 g, intravenous, q6h [Transfer Hold] cefTRIAXone, 1 g, intravenous, q24h [Transfer Hold] citalopram, 30 mg, oral, Daily [Transfer Hold] levothyroxine, 75 mcg, oral, Daily [Transfer Hold] melatonin, 3 mg, oral, Nightly [Transfer Hold] multivitamin, 1 tablet, oral, Daily [Transfer Hold] pantoprazole, 40 mg, oral, q AM AC [Transfer Hold] polyetheylene glycol, 17 g, oral, Daily senna-docusate, 2 tablet, oral, Nightly [Transfer Hold] sodium chloride, 10 mL, intravenous, BID lactated Ringer's, 1,000 mL lactated Ringer's, 100 mL/hr Oxygen Therapy, Adult, PRN medications: [Transfer Hold] acetaminophen, [Transfer Hold] hydrALAZINE, [Transfer Hold] HYDROmorphone, HYDROmorphone, [Transfer Hold] magnesium hydroxide, [Transfer Hold] naloxone, [Transfer Hold] ondansetron, ondansetron (ZOFRAN-ODT) disintegrating tablet OR ondansetron, oxyCODONE, [Transfer Hold] oxyCODONE, oxyCODONE, [COMPLETED] Insert peripheral IV AND Maintain IV access AND [COMPLETED] Saline lock IV AND [Transfer Hold] sodium chloride AND [Transfer Hold] sodium chloride HEMATOLOGY Lab Results Component Value Date WBC 7.4 11/17/2024 HGB 10.6 (L) 11/17/2024 HCT 32.3 (L) 11/17/2024 MCV 94.2 11/17/2024 PLT 150 11/17/2024 INR 1.0 11/14/2024 CHEMISTRY Lab Results Component Value Date GLUCOSE 100 11/17/2024 NA 139 11/17/2024 K 3.3 (L) 11/17/2024 CO2 27 11/17/2024 CL 107 11/17/2024 BUN 16 11/17/2024 CREATININE 0.63 11/17/2024 EGFR 91 11/17/2024 CALCIUM 8.5 11/17/2024 MG 2.0 11/15/2024 ANIONGAP 5 11/17/2024 Imaging: CT Angio Chest wo and/or w Contrast Narrative: EXAMINATION: CTA chest with contrast. CLINICAL INDICATION: SOB. Hip fracture. Rule out PE. COMPARISON: Chest x-ray 11/16/2024. TECHNIQUE: 2.5 mm thin axial and reformatted 3 mm thin sagittal and coronal images of chest were obtained following IV 90 mL [id number]. Scanner: [employer] 64 slice VCT Dose reduction technique: ASIR (Adaptive statistical iterative reconstruction) and/or AEC (automated exposure control)Dose: total exam DLP 375 mGy/cm. FINDINGS: Vascular: There is good opacification of pulmonary artery and its branches without any intraluminalfilling defect or narrowing. The thoracic aorta is of normal caliber heart size is normal. No pericardial effusion seen. Nonvascular: There is bilateral small pleural effusions with bibasilar atelectasis. There is minimal dependent atelectasis bilateral upper lobe posterior segment. Rest of the lungs are clear of acuteconsolidation. Thyroid lobes are symmetrical and normal. The central tracheal and bronchial airways widely patent. No abnormal size mediastinal or hilar lymph nodes seen. The axilla and the chest wall is unremarkable. Impression: No evidence of PE. No evidence of aortic aneurysm or dissection. Small bilateral pleural effusions with bilateral lower lobe atelectasis. Dependent atelectasis bilateral upper lobe posterior segment. -------- FINAL REPORT -------- Dictated By: Alli De Anda Dictated Date: 11/16/2024 10:26 ET Assigned Physician: Alli De Anda Reviewed and Electronically Signed By: Alli De Anda Signed Date: 11/16/2024 10:45 ET Workstation ID: [id number] Transcribed By: Self Edit Transcribed Date: 11/16/2024 10:26 ET XR Chest 1 View Narrative: EXAMINATION: Chest portal upright 0430 hours. CLINICAL INDICATION: Hypoxia. COMPARISON: Chest chest 11/14/2024. FINDINGS: The lungs are expanded and bandlike atelectasis left lower lobe. Rest of the lungs are expanded and clear. The heart size is borderline normal. Pulmonary vascularity is prominent, question mild congestion. There is no suspicion for pleural effusion. No gross bony abnormality. Impression: Suspect pulmonary vascular congestion. -------- FINAL REPORT -------- Dictated By: Alli De Anda Dictated Date: 11/16/2024 07:09 ET Assigned Physician: Alli De Anda Reviewed and Electronically Signed By: Alli De Anda Signed Date: 11/16/2024 07:11 ET Workstation ID: [id number] Transcribed By: Self Edit Transcribed Date: 11/16/2024 07:09 ET ASSESSMENT & PLAN Isabela Rios is a 79 y.o. female with PMH of HTN hyperlipidemia, hypothyroidism, osteopenia, depression/anxiety, brought into ED after she was found down on the kitchen floor by her , reportedly she was wandering at night and fell also she could not recall the circumstances, she was noted to be confused and agitated in ED requiring soft restraints. At the baseline she did not use any assistive device for ambulation but frequent falls reported prior to this event. In ED she was afebrile and hemodynamically stable. CBC with mild leukocytosis with WBC 11.6 hemoglobin 12.3, BUN 24 creatinine 0.9 TSH was elevated at 48, respiratory viral panel was negative, EKG showed normal sinus rhythm with nonspecific T wave abnormality QTc 495, CT head revealed 8 mm subduralhematoma along the right convexity. X-ray of the left hip revealed acute transcervical femoral neckfracture. CT left lower extremity confirmed impacted and angulated left femoral neck fracture. Chest x-ray was suspicious for pulmonary vascular congestion. High sensitive troponin 10 x 10, CK was 668. UA was abnormal with proteinuria trace ketones moderate blood 28 WBCs 9 RBCs and many bacteria. She was admitted. Neurosurgery and orthopedic surgery consulted. For subdural conservative management was recommended, repeat CT head remained stable. Left hip fracture repair planned for today. Of note, she was noted to be hypoxic on the morning of 11/16/2024 with oxygen saturation 85% she wasplaced on O2 and CTA was obtained which did not demonstrate evidence of PE. Small bilateral pleuraleffusions noted. Report as above. # SDH -treated conservatively as recommended by neurosurgery. Repeat CT in 2 to 3 weeks and follow-up in the office recommended. No anticoagulation. # Acute encephalopathy, dysarthria-likely due to subdural hematoma/? UTI and acute hospitalization contributing. Some improvement noted by family. Continue to monitor. Low threshold for MRI brain. # Left hip fracture - repair planned for today. # Probable UTI -on IV ceftriaxone, follow-up on cultures. HTN -reportedly Norvasc was recently discontinued by PCP due to low blood pressure. Blood pressure elevated this morning with systolic 180 and initiated her on small dose of amlodipine 2.5 with as needed hydralazine. Monitor BP closely Hypothyroidism -TSH is elevated, Synthroid dose was increased on admission to 75 mcg daily. Compliance was questioned. We will review with this patient and family. Depression anxiety -she is on Celexa. Anemia?ACD Mild hypokalemia -replace and monitor DVT ppx -CT chemical prophylaxis contraindicated due to subdural hematoma Code status -presumed full Dispo -pending surgery as above HCP -daughter Rachel Bernard and Tucker. Both present at the bedside, care reviewed.. * Elva Hester MD - 11/17/2024 12:18 PM EST Orthopedic Progress Not Dx: Left hip femoral neck fracture 79-year-old female Left hip femoral neck fracture Medically cleared and optimized Physical exam alert oriented nondistressed Left lower extremity slight shortening Sensation tact distally good cap refill distally Imaging studies reviewed Laboratory values reviewed Patient consented Risk include but are not limited to infection pain stiffness nonunion malunion instability leg length discrepancy Plan: Left hip hemiarthroplasty SAIMA Hester MD * Shana Gomez RD - 11/17/2024 11:03 AM EST 11/17/2024 @ 11:18 AM EST Nutrition Initial Assessment Reason for RD Intervention: Assessment Type: Nutrition Trigger Reason for Assessment: High MST Score Anthropometrics: Height: 165.1 cm (65 ) Weight: 65.8 kg (145 lb) (per EPIC record) Weight Method: Actual (bed scale) BMI (Calculated): 24.1 BMI Class: Normal Current Diet and Supplements: Dietary Orders (From admission, onward) Start Ordered 11/17/24 0001 Adult NPO diet Location: [facility]; Diet: NPO- Except for Medications Diet effective midnight Question Answer Comment Location [facility] Diet NPO- Except for Medications 11/16/24 0849 History of presenting illness: Patient is a 79 y.o. female with a history of Past Medical History: Diagnosis Date Anxiety 06/11/2017 DX:Anxiety Depression 07/06/2017 DX:Depression HTN (hypertension) 06/11/2017 DX:HTN (hypertension) HTN (hypertension) DX:HTN (hypertension) HTN (hypertension) DX:HTN (hypertension) Hypothyroidism 06/11/2017 DX:Hypothyroidism Hypothyroidism DX:Hypothyroidism Osteopenia 07/06/2017 DX:Osteopenia Past Surgical History: Procedure Laterality Date WISDOM TOOTH EXTRACTION PROCEDURE: HISTORICAL WISDOM TEETH EXTRACTION admitted 11/14/2024 with Acute subdural hematoma (CMS/HCC). Food/Nutrition History: Self-selected diet(s) followed: Pt had some difficulty providing history but was able to communicate general history. No food allergies, No difficulties chewing or swallowing, consumes two meals daily. Tries to walk daily. Denies food insecurity concerns. Follows no dietary restrictions. Confirms height. reports she lost 5lbs prior to admission with effort (increased her walking, cut back ). Appetite FRONT MAN: Good Intake FRONT MAN: Stable Vitamins/Minerals/Herbs: one a day type multivitamin Weight History: Wt Readings from Last 10 Encounters: 11/17/24 65.8 kg (145 lb) 09/03/24 68.2 kg (150 lb 6.4 oz) 02/28/24 69.2 kg (152 lb 9.6 oz) 08/01/23 70 kg (154 lb 4.8 oz) 07/11/23 69.5 kg (153 lb 3.2 oz) 12/28/22 70.1 kg (154 lb 9.6 oz) 06/15/22 70.4 kg (155 lb 3.2 oz) Subjective Assessment: Pt presents with SDH, left hip fracture. NPO for Left hemiarthroplasty today. She reports she wouldlike to eat and is eager to return home. Potassium level noted, replaced PO. Was on IDDSI 7 diet, easy to chew, prior to NPO. Nutrition-Related Lab Values: Results from last 7 days Lab Units 11/17/24 0643 11/15/24 0627 11/14/24 0958 SODIUM mmol/L 139 139 137 POTASSIUM mmol/L 3.3* 3.6 3.6 MAGNESIUM mg/dL -- 2.0 -- CHLORIDE mmol/L 107 108 107 CO2 mmol/L 27 24 25 BUN mg/dL 16 22 24 CREATININE mg/dL 0.63 0.77 0.96 EGFR mL/min/1.73m2 91 80 61 CALCIUM mg/dL 8.5 8.5 8.9 BILIRUBIN TOTAL mg/dL -- -- 1.0 ALK PHOS unit/L -- -- 81 ALT unit/L -- -- 40 AST unit/L -- -- 52* GLUCOSE mg/dL 100 114* 130* WBC AUTO K/mcL 7.4 8.8 11.6* Medications: amLODIPine, 2.5 mg, oral, Daily ceFAZolin, 2 g, intravenous, Once cefTRIAXone, 1 g, intravenous, q24h citalopram, 30 mg, oral, Daily levothyroxine, 75 mcg, oral, Daily melatonin, 3 mg, oral, Nightly multivitamin, 1 tablet, oral, Daily polyetheylene glycol, 17 g, oral, Daily sodium chloride, 10 mL, intravenous, BID PRN medications: acetaminophen, hydrALAZINE, HYDROmorphone, magnesium hydroxide, naloxone, ondansetron, oxyCODONE, [COMPLETED] Insert peripheral IV AND Maintain IV access AND [COMPLETED] Saline lock IV AND sodium chloride AND sodium chloride Food/Nutrition-Current Status: Intake Type: Other (Comment) (NPO for surgery) Current Diet Status: Appropriate Current Supplement Status: Other (Comment) (not ordered) Appetite: Good (fair-good when diet allowed) Intake Amount (%): 50-75% (when diet allowed, 75% at one meal, fair at one meal) Intake Assessment: Variable Nutrition Focused Physical Findings: Overall Appearance: comfortable in bed, some delay in finding the correct words or phrases, sitter present, BMI appears accurate Digestive System (Mouth to Rectum): Other (Comment) (no BM recorded) Skin: intact per EPIC records Fluid Accumulation/Edema: Other (Comment) (not observed) Loss of Fat Location: Orbital, Buccal, Triceps, Ribs Loss of Fat Amt-Orbital: Mild Loss of Fat Amt-Buccal: Mild Loss of Fat Amt-Triceps: No Losses Loss of Fat Amt-Ribs: Not Examined Loss of Muscle Location: Temples, Clavicle, Shoulders, Interosseous, Scapula, Thigh, Calf Loss of Muscle Amt-Temples: No Losses Loss of Muscle Amt-Clavicle: Mild Loss of Muscle Amt-Shoulders: No Losses Loss of Muscle Amt-Inter Musc: Mild Loss of Muscle Amt-Scapula: Not Examined Loss of Muscle Amt-Thigh: Mild Loss of Muscle Amt-Calf: Not Examined Nutrition Diagnosis: Code Type: None Identified Diagnosis: No Acute Nutrition Dx Nutrition Interventions: Diet Order, Meals/Snacks, Medical Food Supplement, Vitamin/Mineral Supplement (as appropriate on follow up) Goals: Patient will consume greater than or equal to 75% meals., Electrolytes within normal range., Maintain weight., Stooling appropriately., and Maintain skin integrity. Monitoring/Evaluation: Fluid/Beverage Intake, Food Intake, Weight, Diet Order Follow Up: Nutrition Priority Level: Please consult nutrition if needed sooner. RD remains available and will continue to follow. Signature: Shana Gomez RD * Nica Ruelas RN - 11/17/2024 10:45 AM EST CM Progress Note VAL: 11/19-11/20 Barriers: OR 11/17, Will need PT/OT & HCP when mentation clears Plan: SNF-Wide search * Gabby Abad RN - 11/17/2024 4:10 AM EST Goals: Identify possible barriers to meeting goals/advancing plan of care: Stability of the patient: Moderately Stable - Low risk of patient condition declining or worsening End of Shift Summary: * Bhavin Garcia MD - 11/16/2024 4:43 PM EST Images from the original note were not included. ESLAM PROGRESS NOTE Date: 11/16/2024 Author: Bhavin Garcia MD Patient ID: Isabela Rios is a 79 y.o. female : 1945 MR#: [id number] SUBJECTIVE Follow up: SDH, L hip fx, encephalopathy Events noted Found to have low SpO2 reading 85% earlier this AM. Placed on O2 by ID Prior to this, appears got lorazepam for agitation/restlessness CTA ruled out for PE Notified by orthopedics surgery postponed until to tomorrow Patient's spouse Latanya and daughter present at time of my encounter Unable to obtain interval hx/reliable ROS d/t patient's mentation Allergies Patient has no known allergies. Current Medications: ceFAZolin, 2 g, intravenous, Once cefTRIAXone, 1 g, intravenous, q24h citalopram, 30 mg, oral, Daily levothyroxine, 75 mcg, oral, Daily multivitamin, 1 tablet, oral, Daily polyetheylene glycol, 17 g, oral, Daily sodium chloride, 10 mL, intravenous, BID PRN medications: acetaminophen, HYDROmorphone, magnesium hydroxide, naloxone, ondansetron, oxyCODONE, [COMPLETED] Insert peripheral IV AND Maintain IV access AND [COMPLETED] Saline lock IV AND sodium chloride AND sodium chloride OBJECTIVE Vitals: 11/16/24 0342 11/16/24 0756 11/16/24 1137 11/16/24 1532 BP: (!) 136/96 (!) 144/86 (!) 146/88 (!) 167/81 BP Location: Left arm Left arm Left arm Left arm Patient Position: Lying Lying Lying Lying Pulse: 83 82 81 85 Resp: Temp: 36.6 ??C (97.8 ??F) 37.1 ??C (98.7 ??F) 36.7 ??C (98 ??F) 37.1 ??C (98.8 ??F) TempSrc: Temporal Temporal Temporal Temporal SpO2: 90% 95% 92% 96% Weight: Height: Vital Signs: as documented above General: Laying in bed. Calm/cooperative. HEENT/Neck: O2 by NC. Moist mucosa, no icterus, supple Thorax: No accessory muscles use. Clear Cardiac: Regular. Abdomen: Not distended,+ bowel sounds, soft, nontender Extremities: No edema, no cyanosis, no calf tenderness Mental Status: Awake, alert, some word finding difficulties. Place: [facility] . November Neurological: No localizing weakness. Range of motion about the left leg limited. Gait not tested : Deferred Skin: Ecchymosis left lat hip. Warm and dry, no obvious rash LABS HEMATOLOGY Lab Results Component Value Date WBC 8.8 11/15/2024 HGB 11.0 (L) 11/15/2024 HCT 34.2 (L) 11/15/2024 MCV 95.3 11/15/2024 PLT 162 11/15/2024 CHEMISTRY Lab Results Component Value Date GLUCOSE 114 (H) 11/15/2024 NA 139 11/15/2024 K 3.6 11/15/2024 CO2 24 11/15/2024 CL 108 11/15/2024 BUN 22 11/15/2024 CREATININE 0.77 11/15/2024 EGFR 80 11/15/2024 CALCIUM 8.5 11/15/2024 MG 2.0 11/15/2024 ANIONGAP 7 11/15/2024 Imaging: CT Angio Chest wo and/or w Contrast Narrative: EXAMINATION: CTA chest with contrast. CLINICAL INDICATION: SOB. Hip fracture. Rule out PE. COMPARISON: Chest x-ray 11/16/2024. TECHNIQUE: 2.5 mm thin axial and reformatted 3 mm thin sagittal and coronal images of chest were obtained following IV 90 mL [id number]. Scanner: [employer] 64 slice VCT Dose reduction technique: ASIR (Adaptive statistical iterative reconstruction) and/or AEC (automated exposure control)Dose: total exam DLP 375 mGy/cm. FINDINGS: Vascular: There is good opacification of pulmonary artery and its branches without any intraluminalfilling defect or narrowing. The thoracic aorta is of normal caliber heart size is normal. No pericardial effusion seen. Nonvascular: There is bilateral small pleural effusions with bibasilar atelectasis. There is minimal dependent atelectasis bilateral upper lobe posterior segment. Rest of the lungs are clear of acuteconsolidation. Thyroid lobes are symmetrical and normal. The central tracheal and bronchial airways widely patent. No abnormal size mediastinal or hilar lymph nodes seen. The axilla and the chest wall is unremarkable. Impression: No evidence of PE. No evidence of aortic aneurysm or dissection. Small bilateral pleural effusions with bilateral lower lobe atelectasis. Dependent atelectasis bilateral upper lobe posterior segment. -------- FINAL REPORT -------- Dictated By: Alli De Anda Dictated Date: 11/16/2024 10:26 ET Assigned Physician: Alli De Anda Reviewed and Electronically Signed By: Alli De Anda Signed Date: 11/16/2024 10:45 ET Workstation ID: [id number] Transcribed By: Self Edit Transcribed Date: 11/16/2024 10:26 ET XR Chest 1 View Narrative: EXAMINATION: Chest portal upright 0430 hours. CLINICAL INDICATION: Hypoxia. COMPARISON: Chest chest 11/14/2024. FINDINGS: The lungs are expanded and bandlike atelectasis left lower lobe. Rest of the lungs are expanded and clear. The heart size is borderline normal. Pulmonary vascularity is prominent, question mild congestion. There is no suspicion for pleural effusion. No gross bony abnormality. Impression: Suspect pulmonary vascular congestion. -------- FINAL REPORT -------- Dictated By: Alli De Anda Dictated Date: 11/16/2024 07:09 ET Assigned Physician: Alli De Anda Reviewed and Electronically Signed By: Alli De Anda Signed Date: 11/16/2024 07:11 ET Workstation ID: [id number] Transcribed By: Self Edit Transcribed Date: 11/16/2024 07:09 ET ASSESSMENT & PLAN Traumatic subdural hematoma Right frontoparietal subdural. F/u imaging stable. Seen on consult by neurosurgery who reviewed follow up imaging. -CT in 2 to 3 weeks and will follow-up as outpatient with NS -NS rec no anticoagulation or pharmacologic DVT prophylaxis Left Hip fracture D/t fall. Plain film confirming acute transcervical femoral neck fracture, left -orthopedics plans for operative repair tomorrow S/p Fall Reported hx falls FRONT MAN. Etiology? Acute encephalopathy Dysarthria Cognitive decline Suspect underlying dementing illness at baseline. After further discussion with daughter and , confirm patient has had significant cognitive decline for last 2 years. SDH, untreated hypothyroid, possible UTI may be contributing factors. Presently calm/cooperative. Baseline unclear -sitter for now Low SpO2 measurement Patient found to have low SpO2 readings earlier in AM. Prior to this appears has gotten lorazepam for restlessness/impulsiveness. Suspect medication causing sedation with resultant decreased resp drive may explain. No fever. No resp symptoms. CT chest angio showing clear lungs and ruled out for PE -wean off O2 Hypothyroidism Untreated -resumed levothyroxine and higher dose Abnormal UA Empirically started on ceftriaxone -f/u urine cultures History of Hypertension antihypertensive held drugs due to running low BP's lately DISPOSITION Per discussion with Orthopedics, Left hip hemiarthroplasty planned for tomorrow Will need SNF when ready for discharge. Anticipating another 48 hours inhouse Plan above d/w Tucker(spouse) and daughter. * Elva Hester MD - 11/16/2024 12:35 PM EST Orthopedic Progress Note Dx: Left hip femoral neck fracture 79-year-old female Admitted 11/14/2024 Subdural hematoma Orthopedics consulted Left hip hemiarthroplasty tentatively scheduled for today Deferred secondary to decreasing O2 sats CT angio chest performed today 11/16/2024 No evidence of PE Orthopedically stable Resumption of diet at this time Awaiting final medical clearance Surgery scheduled 11/17/2024 SAIMA Hester MD * Ruth Ibrahim RN - 11/16/2024 10:45 AM EST Patient returned from CT, remote operations producer placed. * Ruth Ibrahim RN - 11/16/2024 7:30 AM EST Attempt to place patient on remote operations producer, pt continuing to remove. * Petar Catherine RN - 11/16/2024 6:49 AM EST Goals: Identify possible barriers to meeting goals/advancing plan of care: Patient hypoxic in the mid 80'son room air, but is not in respiratory distress and does not complain of shortness of breath. Patient placed back on 3L NC, though she continues to remove canula and telemetry leads. Patient remains confused, agitated, and restless. Chest X-Ray and CT Angio of the Chest ordered. Stability of the patient: Moderately Unstable - Medium risk of patient condition declining or worsening End of Shift Summary: * Petar Catherine RN - 11/16/2024 4:23 AM EST Patient continuing to remove remote operations producer every time it is replaced. * Petar Catherine RN - 11/16/2024 4:13 AM EST Patient found to be 85% on room air when vitals taken. Patient assessed by RN and O2 attempted on multiple fingers, with same reading resulting on subsequent tries. Patient did not endorse shortness of breath did not appear to be in respiratory distress but she is still agitated and restless. FRANCES Yen contacted via secure message and STAT chest xray and ABG's ordered. * Petar Catherine RN - 11/16/2024 2:44 AM EST Patient sleeping in bed and appears comfortable. Patient breathing and chest rise is symmetrical. Will let patient get rest and defer putting remote operations producer back on until 4am when vitals are taken. 1:1 patient sitter at bedside. * Petar Catherine RN - 11/16/2024 12:00 AM EST Patient very restless and agitated. Lorazepam 0.5 mg PO and Melatonin 3 mg given earlier in shift with no effect as of yet. Patient will not keep telemetry leads on. This RN as well PCT have put the leads back on multiple times, but the patient keeps removing them. Last known cardiac rhythm was sinus rhythm. 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 Yes Initial Assessment Notices: Patient choice given. VAL: Unable to determine Barriers to progression of care/discharge: Sitter; left hip surgery 11/16/2023; s/p fall with subdural hematoma; pain management; PT evaluation Plan Dispo: In order of preference: [facility]/[address] [place] [address] Referral/Auth status: Placed 11/16 pending Support Persons and Availability: Lives with spouse; supportive daughter lives in [place] Transportation: Ambulance vs stretcher Current/Prior Services/DME: Used no DME Home/Living situation: One level with two steps to entry / status: No If DC to home, readily able to access: Yes Readmission: No Therapy Eval: Pending Covid Vacc: Yes Last BM: ? HCP: No...confused 11/16/2023 Pharmacy: [place], [place] * FRANCES Herrera - 11/15/2024 1:27 PM EST No acute events overnight. C/o left shoulder pain, right hip pain. Denies STYLES. and daughter at bedside. Objective Last Recorded Vitals: Blood pressure 137/59, pulse 79, temperature 37.1 ??C (98.7 ??F), temperature source Temporal, resp. rate 18, height 1.651 m (65 ), weight 65.8 kg (145 lb), SpO2 95%. Vitals: 11/15/24 0021 11/15/24 0420 11/15/24 0819 11/15/24 1227 BP: (!) 170/84 (!) 143/68 136/63 137/59 BP Location: Left arm Left arm Patient Position: Lying Lying Pulse: 80 76 81 79 Resp: Temp: 36.3 ??C (97.4 ??F) 36.4 ??C (97.5 ??F) 36.6 ??C (97.8 ??F) 37.1 ??C (98.7 ??F) TempSrc: Oral Temporal SpO2: 100% 90% 93% 95% Weight: Height: LABS HEMATOLOGY Lab Results Component Value Date WBC 8.8 11/15/2024 HGB 11.0 (L) 11/15/2024 HCT 34.2 (L) 11/15/2024 MCV 95.3 11/15/2024 PLT 162 11/15/2024 CHEMISTRY Lab Results Component Value Date GLUCOSE 114 (H) 11/15/2024 NA 139 11/15/2024 K 3.6 11/15/2024 CO2 24 11/15/2024 CL 108 11/15/2024 BUN 22 11/15/2024 CREATININE 0.77 11/15/2024 EGFR 80 11/15/2024 CALCIUM 8.5 11/15/2024 MG 2.0 11/15/2024 ANIONGAP 7 11/15/2024 Imaging: CT Head wo Contrast Narrative: Examination: CT brain without contrast. CLINICAL INDICATION: Follow-up subdural hematoma. COMPARISON: CT brain 11/14/2024 at 2:10 PM. TECHNIQUE: Routine 2.5 mm thin axial and reformatted 3 mm thin sagittal and coronal images of brainwere obtained. Scanner: [employer] 64 slice VCT Dose reduction technique: ASIR (Adaptive statistical iterative reconstruction) and/or AEC (automated exposure control) Dose: total exam DLP 900 mGy/cm. FINDINGS: Again visualized is a right frontoparietal subdural hematoma with a maximum thickness of [address] image 32/2. It is the same size as noted on the previous CT exam. There is no midline shift. The greater white matter differentiation is maintained. Some effacement of right frontal parietal cortical sulci seen. Bone windows reveal no calvarial abnormality or fracture. There is mildly mucoperiosteal thickening right posterior ethmoid and sphenoid sinuses. Impression: Stable right frontoparietal subdural acute hematoma. There is mild cortical sulci effacement but no midline shift seen. No calvarial fracture. Minimal mucoperiosteal thickening right posterior ethmoid and sphenoid sinuses. -------- FINAL REPORT -------- Dictated By: Alli De Anda Dictated Date: 11/15/2024 08:25 ET Assigned Physician: Alli De Anda Reviewed and Electronically Signed By: Alli De Anda Signed Date: 11/15/2024 08:30 ET Workstation ID: [id number] Transcribed By: Self Edit Transcribed Date: 11/15/2024 08:25 ET Physical Exam On physical examination, the week patient is awake and alert. PERRL. Speech was clear and fluent. She was oriented to person and to the hospital but could not remember the name of the hospital or theyear. Thought pattern was tangential. HIGUERA. No pronator drift. Output by Drain (mL) 11/13/24 0700 - 11/13/24 1859 11/13/24 1900 - 11/14/24 0659 11/14/24 0700 - 11/14/24 1859 11/14/24 1900 - 11/15/24 0659 11/15/24 0700 - 11/15/24 1327 Requested LDAs do not have output data documented. Intake/Output Summary (Last 24 hours) at 11/15/2024 1327 Last data filed at 11/15/2024 0600 Gross per 24 hour Intake 1100 ml Output 700 ml Net 400 ml Assessment/Plan Principal Problem: Acute subdural hematoma (CMS/HCC) Spoke with a #2 status post fall resulting in acute right vertex subdural hematoma. This was stableover 3 scans and she does not need any more scans at this time. Dr. Hester can certainly proceed with hip surgery. Please do not give her any anticoagulation or pharmacologic DVT prophylaxis. I did have a discussion with the patient's family regarding the risks of the use of tranexamic acid as well as the risks of not being anticoagulated after hip surgery. We talked about the difference between acraniotomy for an acute subdural hematoma versus a bur hole for a chronic subdural hematoma. She will need a repeat head CT in 2 to 3 weeks and follow-up in our office at that time. All questions answered. Case was discussed with Dr. Damico and Dr. Garcia. * Bhavin Garcia MD - 11/15/2024 1:11 PM EST Images from the original note were not included. SELAM PROGRESS NOTE Date: 11/15/2024 Author: Bhavin Garcia MD Patient ID: Isabela Rios is a 79 y.o. female : 1945 MR#: [id number] SUBJECTIVE Follow up: SDH, L hip fx, encephalopathy EMR reviewed. Events noted. Patient required one-to-one sitter and placement of bilateral soft wrist restraints for impulsiveness/agitation. Discussed with orthopedics prior to my encounter. difficult to obtain interval history and reliable review of systems due to patient's mentation. Allergies Patient has no known allergies. Current Medications: ceFAZolin, 2 g, intravenous, Once cefTRIAXone, 1 g, intravenous, q24h citalopram, 30 mg, oral, Daily levothyroxine, 75 mcg, oral, Daily multivitamin, 1 tablet, oral, Daily polyetheylene glycol, 17 g, oral, Daily sodium chloride, 10 mL, intravenous, BID lactated Ringer's, 100 mL/hr, Last Rate: 100 mL/hr (11/14/24 1347) PRN medications: acetaminophen, HYDROmorphone, magnesium hydroxide, naloxone, ondansetron, oxyCODONE, [COMPLETED] Insert peripheral IV AND Maintain IV access AND [COMPLETED] Saline lock IV AND sodium chloride AND sodium chloride OBJECTIVE Vitals: 11/15/24 0021 11/15/24 0420 11/15/24 0819 11/15/24 1227 BP: (!) 170/84 (!) 143/68 136/63 137/59 BP Location: Left arm Left arm Patient Position: Lying Lying Pulse: 80 76 81 79 Resp: Temp: 36.3 ??C (97.4 ??F) 36.4 ??C (97.5 ??F) 36.6 ??C (97.8 ??F) 37.1 ??C (98.7 ??F) TempSrc: Oral Temporal SpO2: 100% 90% 93% 95% Weight: Height: Vital Signs: as documented above General: Laying in bed. Calm/cooperative. HEENT/Neck: Moist mucosa, no icterus, supple Thorax: No accessory muscles use. Clear Cardiac: Regular. Abdomen: Not distended,+ bowel sounds, soft, nontender Extremities: No edema, no cyanosis, no calf tenderness Mental Status: Awake, alert, some word finding difficulties. She was in the hospital but was unableto name which point. Neurological: No localizing weakness. Range of motion about the left leg. Gait not tested : Deferred Skin: Warm and dry, no obvious rash LABS HEMATOLOGY Lab Results Component Value Date WBC 8.8 11/15/2024 HGB 11.0 (L) 11/15/2024 HCT 34.2 (L) 11/15/2024 MCV 95.3 11/15/2024 PLT 162 11/15/2024 CHEMISTRY Lab Results Component Value Date GLUCOSE 114 (H) 11/15/2024 NA 139 11/15/2024 K 3.6 11/15/2024 CO2 24 11/15/2024 CL 108 11/15/2024 BUN 22 11/15/2024 CREATININE 0.77 11/15/2024 EGFR 80 11/15/2024 CALCIUM 8.5 11/15/2024 MG 2.0 11/15/2024 ANIONGAP 7 11/15/2024 Imaging: CT Head wo Contrast Narrative: Examination: CT brain without contrast. CLINICAL INDICATION: Follow-up subdural hematoma. COMPARISON: CT brain 11/14/2024 at 2:10 PM. TECHNIQUE: Routine 2.5 mm thin axial and reformatted 3 mm thin sagittal and coronal images of brainwere obtained. Scanner: [employer] 64 slice VCT Dose reduction technique: ASIR (Adaptive statistical iterative reconstruction) and/or AEC (automated exposure control) Dose: total exam DLP 900 mGy/cm. FINDINGS: Again visualized is a right frontoparietal subdural hematoma with a maximum thickness of [address] image 32/2. It is the same size as noted on the previous CT exam. There is no midline shift. The greater white matter differentiation is maintained. Some effacement of right frontal parietal cortical sulci seen. Bone windows reveal no calvarial abnormality or fracture. There is mildly mucoperiosteal thickening right posterior ethmoid and sphenoid sinuses. Impression: Stable right frontoparietal subdural acute hematoma. There is mild cortical sulci effacement but no midline shift seen. No calvarial fracture. Minimal mucoperiosteal thickening right posterior ethmoid and sphenoid sinuses. -------- FINAL REPORT -------- Dictated By: Alli De Anda Dictated Date: 11/15/2024 08:25 ET Assigned Physician: Alli De Anda Reviewed and Electronically Signed By: Alli De Anda Signed Date: 11/15/2024 08:30 ET Workstation ID: [id number] Transcribed By: Self Edit Transcribed Date: 11/15/2024 08:25 ET ASSESSMENT & PLAN Traumatic subdural hematoma Right frontoparietal subdural. F/u imaging stable. Neurosurgery following and reviewed imaging -CT in 2 to 3 weeks and will follow-up as outpatient with NS -NS rec no anticoagulation or pharmacologic DVT prophylaxis Left Hip fracture D/t fall. -orthopedics plans for operative repair S/p Fall Reported hx falls. Etiology? Acute encephalopathy Dysarthria Cognitive decline Suspect underlying dementing illness at baseline. SDH, untreated hypothyroid, possible UTI may be contributing factors. Presently calm/cooperative. Baseline unclear -sitter for now Hypothyroidism Untreated -resumed levothyroxine and higher dose Abnormal UA Empirically started on ceftriaxone -f/u urine cultures History of Hypertension antihypertensive held drugs due to running low BP's lately DISPOSITION F/u CT brain stable Per discussion with Orthopedics, Left hip hemiarthroplasty planned for tomorrow Family(daughter, ) confirm patient has had significant cognitive decline for last 2 years * NESTOR Leiva - 11/15/2024 12:36 PM EST Images from the original note were not included. 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 Patient was alert and lying down in bed on O2 via nasal cannula w/ restraints and 1:1 sitter present in the room. Pt reported no difficulty w/ swallowing and a regular diet prior to hospitalization. Pt was confused and presented w/ tangential speech and required frequent redirections. SWALLOW SCREEN: Swallow Pre-Screen Is the patient lethargic, unconscious, or semi-conscious?: No Can the patient hold their head upright?: Yes Does the patient have slurred speech that makes words hard to understand?: No Does the patient have a wet or gurgly voice on a prolonged ahh ?: No Does the patient have a weak cough or no cough on command?: No Does the patient drool?: No Does the patient require suctioning or have a decreased ability to manage their own secretions?: No Is the patient post extubation less than 24 hours?: No Does the patient have a history of dysphagia, PEG, or J-tube?: No Can the patient swallow on command?: No Results from Swallow Pre-Screen: Did not pass Score: 1 Principal Problem: Acute subdural hematoma (CMS/HCC) Date Noted: 11/14/2024 Resolved Problems: * No resolved hospital problems. * Subdural hematoma (CMS/HCC) [S06.5XAA] Acute subdural hematoma (CMS/HCC) [S06.5XAA] Closed fracture of left hip, initial encounter ([facility]) [S72.002A] No admission procedures for hospital encounter. PAST MEDICAL HISTORY: Past Medical History: Diagnosis Date Anxiety 06/11/2017 DX:Anxiety Depression 07/06/2017 DX:Depression HTN (hypertension) 06/11/2017 DX:HTN (hypertension) HTN (hypertension) DX:HTN (hypertension) HTN (hypertension) DX:HTN (hypertension) Hypothyroidism 06/11/2017 DX:Hypothyroidism Hypothyroidism DX:Hypothyroidism Osteopenia 07/06/2017 DX:Osteopenia PAST SURGICAL HISTORY: Past Surgical History: Procedure Laterality Date WISDOM TOOTH EXTRACTION PROCEDURE: HISTORICAL WISDOM TEETH EXTRACTION PRIOR LEVEL OF FUNCTIONING: Pt reported a regular diet and thin liquids at baseline. Pt reported nodifficulty w/ swallowing prior to hospitalization. IMAGING RESULTS: MRI Brain No results found for this or any previous visit. CT Head Results for orders placed during the hospital encounter of 11/14/24 CT Head wo Contrast Narrative Examination: CT brain without contrast. CLINICAL INDICATION: Follow-up subdural hematoma. COMPARISON: CT brain 11/14/2024 at 2:10 PM. TECHNIQUE: Routine 2.5 mm thin axial and reformatted 3 mm thin sagittal and coronal images of brainwere obtained. Scanner: [employer] 64 slice VCT Dose reduction technique: ASIR (Adaptive statistical iterative reconstruction) and/or AEC (automated exposure control) Dose: total exam DLP 900 mGy/cm. FINDINGS: Again visualized is a right frontoparietal subdural hematoma with a maximum thickness of [address] image 32/2. It is the same size as noted on the previous CT exam. There is no midline shift. The greater white matter differentiation is maintained. Some effacement of right frontal parietal cortical sulci seen. Bone windows reveal no calvarial abnormality or fracture. There is mildly mucoperiosteal thickening right posterior ethmoid and sphenoid sinuses. Impression Stable right frontoparietal subdural acute hematoma. There is mild cortical sulci effacement but nomidline shift seen. No calvarial fracture. Minimal mucoperiosteal thickening right posterior ethmoid and sphenoid sinuses. -------- FINAL REPORT -------- Dictated By: Alli De Anda Dictated Date: 11/15/2024 08:25 ET Assigned Physician: Alli De Anda Reviewed and Electronically Signed By: Alli De Anda Signed Date: 11/15/2024 08:30 ET Workstation ID: [id number] Transcribed By: Self Edit Transcribed Date: 11/15/2024 08:25 ET Chest Portable Results for orders placed during the hospital encounter of 11/14/24 XR Chest 1 View Narrative Procedure: AP chest radiograph. HISTORY: weakness, fall. COMPARISON: None. FINDINGS: Linear markings at the bases suggesting mild subsegmental atelectasis. Pleural spaces, pulmonary vasculature, and heart size are normal. Atherosclerotic calcifications of the aorta. Mild degenerativechanges of the spine. Impression No acute findings. -------- FINAL REPORT -------- Dictated By: Vinayak Austin Dictated Date: 11/14/2024 11:08 ET Assigned Physician: Vinayak Austin Reviewed and Electronically Signed By: Vinayak Austin Signed Date: 11/14/2024 11:08 ET Workstation ID: [id number] Transcribed By: Self Edit Transcribed Date: 11/14/2024 11:08 ET Chest 2 View No results found for this or any previous visit. Chest CT No results found for this or any previous visit. ALLERGIES: No Known Allergies OBJECTIVE OXYGEN THERAPY: Oxygen Therapy: Supplemental oxygen O2 Delivery Method: Nasal cannula O2 Flow Rate (L/min): 3 L/min DYSPHAGIA SYMPTOMS REPORTED BY PATIENT: Denies any swallowing issues NPO: yes CURRENT DIET TEXTURES ORDERED: NPO NPO MENTAL STATUS: Alert and Confused SWALLOW BASELINE ASSESSMENT: Respiratory Status: Oxygen via nasal cannula History of Intubation: No Behavior/Cognition: Alert, Confused Dentition: Adequate Patient Positioning: Upright in bed Baseline Vocal Quality: Within Functional Limits MOTOR SPEECH: Labial ROM: Within Functional Limits Labial Symmetry: Within Functional Limits Lingual Appearance: Dry Lingual ROM: Within Functional Limits Lingual Symmetry: Within Functional Limits Facial ROM: Within Functional Limits Facial Symmetry: Within Functional Limits Velum: Within Functional Limits Mandible: Within Functional Limits Vocal Quality: Within Functional Limits Intelligibility: Intelligible 100% CONSISTENCIES ASSESSED: Yes Other (Comment): Pt was able to take meds whole w/ water during med pass w/ RN Thin Presentation: Cup, Self Fed, Straw Oral: Within functional limits Pharyngeal: Within Functional Limits Amount: x1 cup of water Puree Presentation: Self Fed, Spoon Oral: Within functional limits Pharyngeal: Within Functional Limits Ground/Minced & Moist/ Moist Ground Presentation: Self Fed, Spoon Oral: Within functional limits Pharyngeal: Within Functional Limits Solid/Regular Presentation: Bite, Self Fed Oral: Within functional limits, Oral residue (oral residue that cleared w/ liquid wash) Pharyngeal: Within Functional Limits ASSESSMENT/RECOMMENDATIONS ASPIRATION RISK: Diet Solids Recommendation: IDDSI Level 7 Regular Diet Liquids Recommendation: Thin liquids Liquid Administration Via: Cup, Straw Compensatory Swallowing Strategies: Upright as possible for all oral intake, Remain upright for 20-30 minutes after meals, Alternate solids and liquids, Small bites/sips, Eat/feed slowly, Slow rate of intake Recommended Medication Route: PO Recommended Medication Administration: One pill at a time WIRE BORDER ASSEMBLER ASSESSMENT: WIRE BORDER ASSEMBLER Assessment Results: At baseline, Within functional limits Dysphagia Diagnosis: Within Functional Limits Evaluation/Treatment Tolerance: Patient tolerated treatment well Medical Staff Made Aware: Yes Comments: Disucessed w/ RN and message sent to CURRENT DIET: Dietary Orders (From admission, onward) Start Ordered 11/16/24 0001 Adult NPO diet Location: [facility]; Diet: NPO- Except for Medications Diet effective now Question Answer Comment Location [facility] Diet NPO- Except for Medications 11/14/24 1442 11/16/24 0001 Adult NPO diet Location: [facility]; Diet: NPO- Except for Medications Diet effective midnight Question Answer Comment Location [facility] Diet NPO- Except for Medications 11/15/24 1036 11/15/24 1236 Adult diet [facility]; General, Modified Consistency Options for Liquids and Solids; Regular; IDDSI Level 7 Easy to Chew Diet effective now Question Answer Comment Location [facility] Diet Type (req) General Diet Type (req) Modified Consistency Options for Liquids and Solids General Diet Regular Modified Consistency Options for Liquids and Solids IDDSI Level 7 Easy to Chew 11/15/24 1235 PLAN OF CARE WIRE BORDER ASSEMBLER PLAN WIRE BORDER ASSEMBLER Plan: No skilled WIRE BORDER ASSEMBLER No Skilled WIRE BORDER ASSEMBLER: Independent with swallowing WIRE BORDER ASSEMBLER - Evaluation Status: Complete WIRE BORDER ASSEMBLER Discharge Recommendations: Home independent Diet Recommendations: IDDSI 7/0, regular and thin liquids DISCHARGE RECOMMENDATIONS No Speech-Language Pathology (WIRE BORDER ASSEMBLER) services/needs at next level of care. EDUCATION Education Documentation Modified Diet Training, taught by NESTOR Leiva at 11/15/2024 12:36 PM. Learner: Patient Readiness: Acceptance Method: Explanation Response: Verbalizes Understanding Comment: Pt was provided education about purpose of services and swallowing strategies. Education Comments No comments found. GOALS Encounter Problems Encounter Problems (Active) There are no active problems. Encounter Problems (Resolved) There are no resolved problems. Associated attestation - Rachel Delacruz SLP - 11/15/2024 6:35 PM EST I attest that I, Kathleen Delacruz M.S.,[facility]-WIRE BORDER ASSEMBLER, was physically involved in the ongoing assessment, decision making, and interventions provided during today's patient care session. I have reviewed all documentation for today's 11/15/24, entered by Speech Therapy Fellow, Sandy Menjivar, and further attest that it is an accurate clinical record of today's encounter, including accurate and appropriate charges. * Elva Hester MD - 11/15/2024 10:39 AM EST Orthopedic Progress Not Dx: Left hip femoral neck fracture HPI 79-year-old female 11/14/2024 presented [facility] Left hip femoral neck fracture with subdural hematoma Patient evaluated by neurosurgery Under going repeat scan today Awaiting final clearance from neurosurg Physical exam 79-year-old female resting alert and responsive much improved since yesterday Left lower extremity pain with any motion Sensation tact distally good capillary refill distally Plan: N.p.o. at midnight Left hip hemiarthroplasty scheduled for Sunday a.m. SAIMA Hester MD * Skyla Puentes RN - 11/14/2024 9:29 AM EST Pt brought in by EMS from home, [facility] around 1999. Pt was found down by around 0300. Pt was up in the chair upon EMS arrival. Pt originally denied hitting her head or remembering fall, but in transport pt then stated she remembers hitting her head in the bathroom. Pt was unable to identify her right side during transport but was able to identify the left. Pt has word salad when speaking. Pthas a left forehead lac and left forehead contusion. * FRANCES George - 11/14/2024 9:21 AM ESTAssociated Order(s): Critical Care Emergency Medicine Note Patient Name: Isabela Rios Initial Evaluation: 11/14/2024 : 1945 Patient's PCP: Garcia Doran MD Emergency Physician: FRANCES George History of Present Illness Chief Complaint: Chief Complaint Patient presents with Fall Altered Mental Status HPI: This is a 79-year-old female with past medical history as listed below who presents via EMS from home. She was found down on the ground at 3 AM by her . Last known well time was approximately 8 PM last evening. Patient does not seem to recall the fall, she does seem to have a bit of confusion. She denies any pain or recent illnesses however during exam she complains of left hip pain. She told EMS that she thinks she might of fallen in the bathroom. She denies headache, chest pain, abdominal pain, difficulty breathing, vomiting. ROS: GENERAL: No fever, no chills, no acute distress OPHTHALMOLOGY: No vision changes, no redness, or discharge ENT: No sore throat , no nosebleed CARDIOVASCULAR: No chest pain, no peripheral edema RESPIRATORY: No dyspnea, no sputum production, and no cough MUSCULOSKELETAL: No myalgias, no back pain, and no neck pain. GI: No abdominal pain, no nausea, no vomiting, no diarrhea. No black stool, bright red blood per rectum, or constipation. GENITOURINARY: No dysuria, no urgency, no frequency NEUROLOGY: No paresthesias, no weakness, No headache PSYCHIATRIC: No depression, no suicidality, or intent of self-harm DERMATOLOGY: No rash no pruritus IMMUNOLOGY: No immunocompromise HEMATOLOGY: No bleeding, no bruising Previous History Past Medical History: Diagnosis Date Anxiety 06/11/2017 DX:Anxiety Depression 07/06/2017 DX:Depression HTN (hypertension) 06/11/2017 DX:HTN (hypertension) HTN (hypertension) DX:HTN (hypertension) HTN (hypertension) DX:HTN (hypertension) Hypothyroidism 06/11/2017 DX:Hypothyroidism Hypothyroidism DX:Hypothyroidism Osteopenia 07/06/2017 DX:Osteopenia Past Surgical History: Procedure Laterality Date WISDOM TOOTH EXTRACTION PROCEDURE: HISTORICAL WISDOM TEETH EXTRACTION Social History Tobacco Use Smoking status: Former Current packs/day: 0.30 Types: Cigarettes Smokeless tobacco: Never Substance Use Topics Alcohol use: Yes Alcohol/week: 5.0 standard drinks of alcohol Drug use: No Family History Problem Relation Name Age of [...] Strabismus Neg Hx Breast cancer Neg Hx has No Known Allergies. No current facility-administered medications on file prior to encounter. Current Outpatient Medications on File Prior to Encounter Medication Sig Dispense Refill citalopram (CeleXA) 20 mg tablet Please take 1.5 tablet daily 135 tablet 1 diclofenac (VOLTAREN) 1 % topical gel Apply 1 g topically 3 (three) times a day for 10 days. 60 g 0 ferrous sulfate 325 mg (65 mg elemental iron) tablet Take by mouth. levothyroxine (SYNTHROID, LEVOTHROID) 50 mcg tablet TAKE 1 TABLET BY MOUTH DAILY 100 tablet 2 multivitamin (MULTIPLE VITAMINS ORAL) Take by mouth. Physical Exam ED Triage Vitals [11/14/24 0942] Temp Heart Rate Resp BP 36.9 ??C (98.4 ??F) 76 21 (!) 159/71 SpO2 Temp Source Heart Rate Source Patient Position -- Oral Monitor Sitting BP Location FiO2 (%) Left arm -- General: Well-appearing, well nourished, in no acute distress HEENT: PERRL, EOMI, external ears and nose appear unremarkable, airway is patent Neck: Supple, full range of motion Chest: Clear to auscultation; no evidence of respiratory distress Circulatory: RRR, extremities well perfused Abdomen: Non-distended, Non-Tender Extremities: The left leg is slightly shortened. Increased pain to the left hip with range of motion of the left knee. Distal pulses are palpable. Full range of motion of bilateral upper extremities without difficulty. Skin: Warm and dry. Superficial abrasion to the left side of the forehead surrounded by ecchymosis.No active bleeding. Neuro: Alert and oriented, no focal deficits. Patient alert and oriented x 3. No focal neurologic deficit noted on exam. Patient can carry on conversation but does start to confabulate at times. Results Labs Reviewed CREATINE KINASE - Abnormal Result Value Total CK 668 (*) COMPREHENSIVE METABOLIC PANEL - Abnormal Sodium 137 Potassium 3.6 Chloride 107 CO2 25 Anion Gap 5 Glucose 130 (*) BUN 24 Creatinine 0.96 eGFR 61 BUN/Creatinine Ratio 25.0 Calcium 8.9 AST (SGOT) 52 (*) ALT (SGPT) 40 Alkaline Phosphatase 81 Total Protein 6.8 Albumin 3.9 Total Bilirubin 1.0 CBC WITH AUTO DIFFERENTIAL - Abnormal WBC 11.6 (*) RBC 4.10 Hemoglobin 12.3 Hematocrit 38.2 MCV 94.1 MCH 30.3 MCHC 32.2 RDW 15.2 (*) Platelets 214 MPV 10.4 NRBC 0.0 NRBC Absolute 0.00 Neutrophils Relative 88.1 Lymphocytes Relative 4.8 Monocytes Relative 6.4 Eosinophils Relative 0.0 Basophils Relative 0.1 Immature Granulocytes Relative 0.6 Neutrophils Absolute 10.24 (*) Lymphocytes Absolute 0.56 (*) Monocytes Absolute 0.74 Eosinophils Absolute 0.00 Basophils Absolute 0.01 Immature Granulocytes Absolute 0.07 (*) TROPONIN I HIGH SENSITIVITY - Normal High Sensitivity Troponin I 10 Narrative: High levels of biotin in samples may falsely decrease hsTroponin values. Use caution when interpreting hsTroponin results in patients taking biotin who exhibit renal impairment (eGFR <60) or in patients taking more than 20 mg/day of biotin. CBC AND DIFFERENTIAL Narrative: The following orders were created for panel order CBC and differential. Procedure Abnormality Status --------- ------ CBC auto differential[[id number]] Abnormal Final result Please view results for these tests on the individual orders. URINALYSIS WITH REFLEX MICROSCOPIC AND CULTURE Narrative: The following orders were created for panel order Urinalysis with reflex microscopic and culture. Procedure Abnormality Status --------- ------ Urinalysis with reflex ...[[id number]] Estrada urine culture tube[[id number]] Please view results for these tests on the individual orders. TROPONIN I HIGH SENSITIVITY URINALYSIS WITH REFLEX MICROSCOPIC AND CULTURE Abnormal Labs Reviewed CREATINE KINASE - Abnormal; Notable for the following components: Result Value Total CK 668 (*) All other components within normal limits COMPREHENSIVE METABOLIC PANEL - Abnormal; Notable for the following components: Glucose 130 (*) AST (SGOT) 52 (*) All other components within normal limits CBC WITH AUTO DIFFERENTIAL - Abnormal; Notable for the following components: WBC 11.6 (*) RDW 15.2 (*) Neutrophils Absolute 10.24 (*) Lymphocytes Absolute 0.56 (*) Immature Granulocytes Absolute 0.07 (*) All other components within normal limits XR Hip 2-3 Views Left Final Result Acute transcervical femoral neck fracture. -------- FINAL REPORT -------- Dictated By: Vinayak Austin Dictated Date: 11/14/2024 11:05 ET Assigned Physician: Vinayak Austin Reviewed and Electronically Signed By: Vinayak Austin Signed Date: 11/14/2024 11:08 ET Workstation ID: [id number] Transcribed By: Self Edit Transcribed Date: 11/14/2024 11:05 ET XR Chest 1 View Final Result No acute findings. -------- FINAL REPORT -------- Dictated By: Vinayak Austin Dictated Date: 11/14/2024 11:08 ET Assigned Physician: Vinayak Austin Reviewed and Electronically Signed By: Vinayak Austin Signed Date: 11/14/2024 11:08 ET Workstation ID: [id number] Transcribed By: Self Edit Transcribed Date: 11/14/2024 11:[address] Head wo Contrast Final Result 8 mm subdural hematoma along the right convexity. -------- FINAL REPORT -------- Dictated By: Vinayak Austin Dictated Date: 11/14/2024 10:30 ET Assigned Physician: Vinayak Austin Reviewed and Electronically Signed By: Vinayak Austin Signed Date: 11/14/2024 10:36 ET Workstation ID: [id number] Transcribed By: Self Edit Transcribed Date: 11/14/2024 10:[address] Lower Extremity wo Contrast Left (Results Pending) I have discussed the incidental/abnormal imaging and/or lab abnormalities with the patient and haveinstructed them the need for further evaluation and workup with their primary care doctor. I have provided the patient with a paper copy of the abnormality. The laboratory results, imaging results and other diagnostic exam results were reviewed in the EMR. EKG Interpretation Critical Care Time None ? Medical Decision Making Medications sodium chloride 0.9 % bolus 500 mL (500 mL intravenous New Bag 11/14/24 1153) morphine injection 4 mg (4 mg intravenous Given 11/14/24 1154) ondansetron (PF) (ZOFRAN) injection 4 mg (4 mg intravenous Given 11/14/24 1153) ED Course as of 11/14/24 1205 SunNov 14, [address] shows an 8 mm subdural hematoma. Left hip x-ray shows transcervical fracture. Neurosurgery has been consulted. [] 1122 Dr. Hester consulted regarding the left hip fracture. [] 1122 Dr. Hester recommending a CT of the hip with 3D reconstruction. This was ordered. [] ED Course User Index [JH] FRANCES George Clinical Impressions as of 11/14/24 1205 Subdural hematoma (CMS/HCC) Closed fracture of left hip, initial encounter (CMS/[facility]) Differential to include ICH, concussion, contusion, left hip fracture, CVA less likely, electrolytedisturbance, dysrhythmia 9:54 AM. Patient neurologically intact. NIH score is 0. Workup pending. EKG shows normal sinus rhythm at 80 bpm without ischemic changes or concerns. Procedures Critical Care Performed by: FRANCES George Authorized by: Román Guzman MD Critical care provider statement: Critical care time (minutes): 90 Critical care time was exclusive of: Separately billable procedures and treating other patients Critical care was necessary to treat or prevent imminent or life-threatening deterioration of the following conditions: Trauma Critical care was time spent personally by me on the following activities: Discussions with consultants, evaluation of patient's response to treatment, examination of patient, obtaining history from patient or surrogate, ordering and performing treatments and interventions, ordering and review of laboratory studies, ordering and review of radiographic studies, re-evaluation of patient's conditionand review of old charts I assumed direction of critical care for this patient from another provider in my specialty: yes Care discussed with: admitting provider Diagnosis 1. Subdural hematoma (CMS/HCC) 2. Closed fracture of left hip, initial encounter ([facility]/HCC) Disposition Admit to Inpatient ED Prescriptions None Physician Attestation FRANCES George 11/14/24 0955 This is a split/shared visit with FRANCES George. I personally performed, history and a brief physical exam and the medical decision making (MDM) forthe care of this patient on 11/14/24 along with the PA. Agree with assessment and plan as above in her note Assessment and plan patient required critical care release 30 minutes for multispecialty consult and discussion with family. FRANCES George 11/14/24 12:05 PM EST FRANCES George MD 11/14/24 1141 FRANCES George 11/14/24 1204 FRANCES George 11/14/24 1205 documented in this encounter H&P Notes * Demarcus Villalobos MD - 11/14/2024 1:05 PM EST Images from the original note were not included. [facility]ISTORY [facility] PHYSICAL Please contact author [Demarcus Villalobos MD] via [employer]. Patient: Isabela Rios Admission Date/Time: 11/14/2024 9:22 AM : 1945 [79 y.o.] Patient's PCP: Garcia Doran MD Attending Provider: Román Guzman MD;Ca* CHIEF COMPLAINT Found on the floor HISTORY OF PRESENT ILLNESS This is s 79-year-old former smoker woman with past medical history significant for hypertension, dyslipidemia, hypothyroidism, osteopenia, depression and anxiety was brought to [facility] ED after her found her around 3 AM today, lying down (on her belly) on the kitchen floor. It took him two hours to bring her to her recliner. It seems that her last well known time was around 8 PM last night. Of note, her , who is at bedside is the main contributor to this H&P, since the patientis confused and somewhat agitated. She does not seem to recall the circumstances of the fall. says that at times at night she wanders around the house. Of note, says that the patient has fallen 2-3 times over the past week or two. She normally ambulates without any assistive device (such as cane or walker); but, her says that she is prone to fall easily. During the exam/interview she also complained of some pain over her left hip. She does not take any anticoagulation orantiplatelet medication. No fever or chills. No chest pain, abdominal pain or difficulty breathing. In the ED she was noted to be confused and became agitated. Requiring the use of soft wrist restraints. Work up in ED revealed an acute 8 mm right side subdural hematoma and a left side hip fracture.Neurosurgery and Orthopedics were called in consultation. Review of Systems She is clearly confused and her speech is somewhat dysarthric, too. However, she is able to deny any chest pain, shortness of breath, fever, chills, cough or sputum production, nausea, vomiting or diarrhea. Otherwise as stated above and a 14 point review of system is unremarkable. MEDICAL HISTORY Past Medical History Hypertension, PCP recently stopped amlodipine due to low BP at the office Hyperlipidemia Hypothyroidism Osteopenia Depression Anxiety Past Surgical History s/p wisdom tooth extraction Social History , lives with . Ambulates independently; however, lately she has been falling rather frequently Tobacco: quit many years ago; smoked ~ 0.5 PPD x 20 years ETOH: social; never been a heavy drinker Recreational Drugs: never Family History Father: had hypertension and from heart disease Mother: from lung cancer Daughter with lymphoma Allergies Not Known Drug Allergies Home Medications Citalopram 30 mg daily Levothyroxine 50 mcg daily Ferrous sulfate 325 mg daily Multivitamins 1 tab daily Voltaren gel application TID OBJECTIVE Vitals Visit Vitals BP 118/86 (BP Location: Left arm, Patient Position: Lying) Pulse 88 Temp 36.9 ??C (98.4 ??F) (Oral) Resp (!) 27 Temp (24hrs), Av.9 ??C (98.4 ??F), Min:36.9 ??C (98.4 ??F), Max:36.9 ??C (98.4 ??F) Body mass index is 24.13 kg/m??. No results found for: PTWT , PTHT Physical Examination GENERAL: This is an elderly woman who looks chronically ill. She looks actually at her stated age. She is in no acute respiratory or pain distress. She is awake, alert and oriented x 1 (in person self and also is able to identify her ) HEENT: (+) left frontal 2 cm diameter bump/hematoma with a small laceration on top Pupils reactive to light, EOMI. (+) pallor of conjunctivae. No jaundice of sclerae. Oral mucosa is dry. No oral lesions seen. NECK: Supple, no JVD. No goiter. No cervical lymphadenopathy. LUNGS: Clear to auscultation; but diminished breath sounds on bases without adventitious sounds. HEART: Regular rhythm, S1, S2, no S3 or murmurs. ABDOMEN: Soft, is not distended, non-tender, normal bowel sounds. No guarding or rebound tenderness. EXTREMITIES: No cyanosis, no clubbing or edema. (+) good pedal pulses. Slightly shortening of left lower extremity. NEUROLOGIC: No motor or focal deficits. (+) slurred speech. EKG: NSR at 80 bpm, normal axis, non-specific, non-acute ischemic changes noted. Qtc 495 LAB RESULTS (most recent) HEMATOLOGY Lab Results Component Value Date WBC 11.6 (H) 11/14/2024 HGB 12.3 11/14/2024 HCT 38.2 11/14/2024 MCV 94.1 11/14/2024 PLT 214 11/14/2024 CHEMISTRY Lab Results Component Value Date GLUCOSE 130 (H) 11/14/2024 NA 137 11/14/2024 K 3.6 11/14/2024 CO2 25 11/14/2024 CL 107 11/14/2024 BUN 24 11/14/2024 CREATININE 0.96 11/14/2024 EGFR 61 11/14/2024 CALCIUM 8.9 11/14/2024 ANIONGAP 5 11/14/[address] Head wo Contrast Final Result Unchanged right cerebral convexity subdural hematoma without significant midline shift. -------- FINAL REPORT -------- Dictated By: KYLER BARRERA Dictated Date: 11/14/2024 14:41 ET Assigned Physician: KYLER BARRERA Reviewed and Electronically Signed By: KYLER BARRERA Signed Date: 11/14/2024 14:51 ET Workstation ID: [id number] Transcribed By: Self Edit Transcribed Date: 11/14/2024 14:[address] Lower Extremity wo Contrast Left Final Result Impacted and angulated left femoral neck fracture -------- FINAL REPORT -------- Dictated By: KYLER BARRERA Dictated Date: 11/14/2024 12:26 ET Assigned Physician: KYLER BARRERA Reviewed and Electronically Signed By: KYLER BARRERA Signed Date: 11/14/2024 12:30 ET Workstation ID: [id number] Transcribed By: Self Edit Transcribed Date: 11/14/2024 12:26 ET XR Hip 2-3 Views Left Final Result Acute transcervical femoral neck fracture. -------- FINAL REPORT -------- Dictated By: Vinayak Austin Dictated Date: 11/14/2024 11:05 ET Assigned Physician: Vinayak Austin Reviewed and Electronically Signed By: Vinayak Austin Signed Date: 11/14/2024 11:08 ET Workstation ID: [id number] Transcribed By: Self Edit Transcribed Date: 11/14/2024 11:05 ET XR Chest 1 View Final Result No acute findings. -------- FINAL REPORT -------- Dictated By: Vinayak Austin Dictated Date: 11/14/2024 11:08 ET Assigned Physician: Vinayak Austin Reviewed and Electronically Signed By: Vinayak Austin Signed Date: 11/14/2024 11:08 ET Workstation ID: [id number] Transcribed By: Self Edit Transcribed Date: 11/14/2024 11:[address] Head wo Contrast Final Result 8 mm subdural hematoma along the right convexity. -------- FINAL REPORT -------- Dictated By: Vinayak Austin Dictated Date: 11/14/2024 10:30 ET Assigned Physician: Vinayak Austin Reviewed and Electronically Signed By: Vinayak Austin Signed Date: 11/14/2024 10:36 ET Workstation ID: [id number] Transcribed By: Self Edit Transcribed Date: 11/14/2024 10:30 ET ASSESSMENT & PLAN 79 yo woman with h/o HTN, HLD, hypothyroidism, osteopenia, depression and anxiety was found on the kitchen floor by her in the middle of the night. Confused and complaining of L hip pain. Shewas found with a R side 8 mm SDH and a L hip Fx. Se became agitated and more confused in ED. Acute subdural hematoma After fall at home Neurosurgery input appreciated Recommend neuro checks Q2H x first 24 hrs then Q4H Repeat Head CT in AM Avoid the use of pharmacologic VTE prophylaxis and antiplatelet drugs 2. Left Hip fracture Bed rest Nolan catheter Pain meds PRN (trying to minimize opiates use) Patient is in need of surgical repair Ortho input appreciated Will ask to NS to comment on time and any other precautions for this orthopedic procedure Otherwise, patient seems to be in her optimal CV and pulmonary conditions to undergo this intermediate risk orthopedic procedure without any further testing 3. S/p Fall vs Syncope Unclear why she fell this time She has been falling lately, says Being admitted to Telemetry Will order Echocardiogram 4. Acute encephalopathy Suspect related to acute SDH Will avoid sedatives at this point Will get constant academic registrar May use soft restraints, too 5. Dysarthria Again suspect related to #1 May consider doing a Brain MRI when less agitated 4. History of Hypertension OFF antihypertensive drugs due to running low BP's lately 5. Hypothyroidism Checked TSH: 11 --> 48; suspect due to non-compliance Cont' with Levothyroxine; but will increase dose to 75 mcg daily Repeat TSH in 4-6 weeks 6. Osteopenia Will need to start Ca+D supplements May need to get a Dexa scan as OPT to assess for osteoporosis in the context of this hip fracture 7. Depression and Anxiety Cont' with Celexa dose Admission checklist [x] Code status: Full Code - Default [x] VTE Prophylaxis: with compression boots [x] Diet order on admission: Yes [x] Medication reconciliation Health Care proxy: Tucker Rios (): [phone] documented in this encounter Procedure Notes * Eloise Cherry RN - 11/17/2024 3:31 PM EST 1555 Arrivest o pacu s/p left hip arthroplasty.arouses to voice.iv right forearm out,nolan cath leakng large amountiv restarted and fc dc and new #16 fr inserted.left hip dsg d/I.abductor pillow in place.wiggles toes to command.all procedures explained. * Elva Hester MD - 11/17/2024 12:56 PM EST ORTHOPEDIC OPERATIVE REPORT Date of procedure: 17 November 2024 Preop diagnosis: Left hip, femoral neck fracture Postop diagnosis: Left hip, femoral neck fracture Procedure: Left hip, hemiarthroplasty (posterior approach, cemented) Surgeon: SAIMA Hester MD cafeteria assistant: Juan Luis Larsen MD Anesthesia: GETA Anesthesiologist: Isabell tamayo MD Preop antibiotics: Ancef 2 g Fluids: 800 cc EBL: 200 Urine output estimated 200 Antibiotics: Ancef 2 g TXA: None withheld secondary to subdural hematoma Culture none Pathology none Complications: None Implants: Accolade C stem size 6 x 132 neck angle Bipolar head 41 mm outer diameter Neck/adjustment: -3 Description of procedure: Patient greeted in holding area Site ID performed with indelible marker H&P reviewed Labs reviewed Type and screen confirmed Imaging studies reviewed Patient transported to the OR Transferred to the OR table GAanesthesia implemented Patient placed in RIGHT lateral decubitus position LEFTLower extremity prepped and draped Final timeout performed Standard posterior approach and incision utilized Skin incised hemostasis maintained fascia exposed fascia incised in line with the skin External rotators exposed Hemostasis maintained Piriformis identified transected posterior aspect of the greater trochanter tagged and retracted External rotators elevated enough to allow exposure of the capsule Capsule was then teed tagged and retracted Cobra elevator placed inferior aspect of femoral neck Saw was then used to touch up and cut the femoral neck approximate 1 cm above the lesser trochanter Power head remover was then used to remove the femoral head ligamentum flavum removed, acetabulum denuded of debris Femoral head was sized, and trial heads were assessed and the acetabulum Size 49 deemed optimal with trial heads Lap sponge and placed in the acetabulum femoral head elevator and Herrera were used to optimize exposure of the femur Lloydie cutter/box punch used to initiate preparation of the canal followed by the canal finder Greater trochanter lateralizer/reamer was utilized to optimize the position and minimize likelihoodof varus alignment [place] canal was broached with sequential sizes Size 6 /49/-3 broach Provided optimal fit and stability 49, -3excellent fit with a The hip was then reduced, assessed for length and stability position of sleep position of hygiene position of comfort, shuck test assessed Deemed optimal Flatplate imaging was then utilized to assess broach sizing and placement Trial components removed Canal was then prepared for cementation with centralizer sounding cement restrictor irrigation debridement and suction The size 6emoral component was then placed with proper version utilizing second- generation cement technique After cement ectomy was meticulously performed Hip was then reduced with trial components and reassessed for length and stability Optimal head neck lengths were confirmed final components placed Thorough copious irrigation lavage performed Capsule was then closed utilizing #5 Ethibond sutuRE The piriformis was reattached to the posterior aspect of the greater trochanter utilizing drill hole and suture passer Thorough copious lavage was performed again The fascia was meticulously closed with V LOCK Subcutaneous and skin closed Sterile dressing applied Condition to recovery:Outstanding SAIMA HESTER MD POSTOP ORDERS: Antibiotics: Ancef as per protocol DVT: Per hospitalist given history of subdural PT/OT Weightbearing as tolerated left lower extremity posterior hip precautions Follow up: Postop day 14 X-rays left hip documented in this encounter Consult Notes * FRANCES Herrera - 11/14/2024 7:17 PM EST NEUROSURGERY CONSULTATION Date of Visit: 11/14/2024 Primary Care Physician: Garcia Doran MD RE: Isabela Rios : 1945 Chief Complaint Patient presents with Fall Altered Mental Status Ms. Rios is a 79-year-old woman who had a fall overnight. It sounds like her was home withher. He says he heard her fall and yell. He went to her and found that she had hit her head. It took about 2 hours to get her from the floor to a chair. She complained of left lower extremity pain. X-ray and CT of the left hip revealed an impacted and angulated fracture. A CT of the head was performed and neurosurgical consultation was requested. Past Medical History: Diagnosis Date Anxiety 06/11/2017 DX:Anxiety Depression 07/06/2017 DX:Depression HTN (hypertension) 06/11/2017 DX:HTN (hypertension) HTN (hypertension) DX:HTN (hypertension) HTN (hypertension) DX:HTN (hypertension) Hypothyroidism 06/11/2017 DX:Hypothyroidism Hypothyroidism DX:Hypothyroidism Osteopenia 07/06/2017 DX:Osteopenia Past Surgical History: Procedure Laterality Date WISDOM TOOTH EXTRACTION PROCEDURE: HISTORICAL WISDOM TEETH EXTRACTION No Known Allergies Current Outpatient Medications Medication Instructions citalopram (CeleXA) 20 mg tablet Please take 1.5 tablet daily diclofenac (VOLTAREN) 1 g, Topical, 3 times daily ferrous sulfate 325 mg (65 mg elemental iron) tablet Take by mouth. levothyroxine (SYNTHROID, LEVOTHROID) 50 mcg, oral, Daily multivitamin (MULTIPLE VITAMINS ORAL) Take by mouth. Social History Tobacco Use Smoking status: Former Current packs/day: 0.30 Types: Cigarettes Smokeless tobacco: Never Substance Use Topics Alcohol use: Yes Alcohol/week: 5.0 standard drinks of alcohol Drug use: No Social History Social History Narrative Lives with , cat Adult daughters, grandchildren Family History Problem Relation Name Age of [...] Strabismus Neg Hx Breast cancer Neg Hx Physical Exam Ms. Rios is awake and alert. She was oriented to [facility], [facility], and the year 2024. She could not tell me the month. Pupils were equal round and reactive to light. Extraocular movements are intact. Face is symmetric. Respirations are unlabored. Heart has a regular rate. There was no pronator drift. She can wiggle her toes bilaterally. Further lower extremity motor testing was deferred secondary to the hip fracture. Imaging Diagnostic studies include a head CT from today that was performed on admission and later this afternoon it was repeated for some agitation. The head CTs show a stable acute right vertex subdural hematoma that measures approximately 8 mm in maximal thickness. There was no midline shift. Assessment/Plan Impression is subdural hematoma The plan is for the patient to be admitted to the medicine service. I am going to order a PT and PTT just to check her coagulation studies even though she is not on any anticoagulation. Please do notgive her any NSAIDs, no anticoagulation, no antiplatelet therapy, no aspirin, and no pharmacologic DVT prophylaxis. She received one dose of tranexamic acid, and our plan was to continue at 650mg PO BID, but considering her hip fracture, and that she can't be anticoagulated, we will hold future doses of tranexamic acid at this time to reduce the risk of her developing a DVT. She will have a repeat head CT in the a.m. She will have frequent neurochecks (every 2 hours) overnight. I will see her again tomorrow. Case was discussed with Dr. Damico who formulated the plan. Problem List Items Addressed This Visit None Visit Diagnoses Subdural hematoma ([facility]) - Primary Closed fracture of left hip, initial encounter ([facility]) Thank you for allowing us to care for your patient. FRANCES Herrera on 11/14/2024 at 7:17 PM EST CC: No ref. provider found Garcia Doran MD [facility] Neurosurgical [place] * FRANCES Arnold - 11/14/2024 2:50 PM EST ORTHOPEDIC SURGERY CONSULT Reason for Consult: left hip fracture Orthopedic trauma surgery progress note for left hip fracture Chief Complaint Patient presents with Fall Altered Mental Status . HPI: Isabela Rios is a 79 y.o. female with a past medical history significant for htn, hypothyroidism, anxiety, and depression who had a fall overnight. The patient's who was with the patient at bedside states that he had heard her fall and yell. He did attender and she did hit her head. He states it took about 2 hours to get her from the floor to the chair. She had excruciating left lower leg pain. She also hit her head. Patient was brought to the emergency room by EMS for further evaluation. In the emergency room the patient was confused. She underwent a workup of the left hip includingxray and ct scan as well as CT of the head. X-ray and ct scan of the left hip revealed an impacted and angulated transcervical neck fracture. CT of the head revealed a subdural hematoma. Patient is not on any blood thinners. She is typically independent with ADLS. Orthopedics and neurosurgery was consulted. Past Medical History: Diagnosis Date Anxiety 06/11/2017 DX:Anxiety Depression 07/06/2017 DX:Depression HTN (hypertension) 06/11/2017 DX:HTN (hypertension) HTN (hypertension) DX:HTN (hypertension) HTN (hypertension) DX:HTN (hypertension) Hypothyroidism 06/11/2017 DX:Hypothyroidism Hypothyroidism DX:Hypothyroidism Osteopenia 07/06/2017 DX:Osteopenia Past Surgical History: Procedure Laterality Date WISDOM TOOTH EXTRACTION PROCEDURE: HISTORICAL WISDOM TEETH EXTRACTION Family History Problem Relation Name Age of [...] Strabismus Neg Hx Breast cancer Neg Hx Social History reports that she has quit smoking. Her smoking use included cigarettes. She has never used smokeless tobacco. She reports current alcohol use of about 5.0 standard drinks of alcohol per week. She reports that she does not use drugs. No Known Allergies Prior to Admission medications Medication Sig Start Date End Date Taking? Authorizing Provider citalopram (CeleXA) 20 mg tablet Please take 1.5 tablet daily 09/03/24 Garcia Doran MD diclofenac (VOLTAREN) 1 % topical gel Apply 1 g topically 3 (three) times a day for 10 days. 11/10/24 11/20/24 FRANCES Llanes ferrous sulfate 325 mg (65 mg elemental iron) tablet Take by mouth. Historical Provider, levothyroxine (SYNTHROID, LEVOTHROID) 50 mcg tablet TAKE 1 TABLET BY MOUTH DAILY 09/05/24 Garcia Doran MD multivitamin (MULTIPLE VITAMINS ORAL) Take by mouth. Historical Provider, Review of systems ROS: unable to be performed due to altered mental status Physical Exam Vitals: 11/14/24 1339 BP: 118/86 Pulse: 88 Resp: (!) 27 Temp: SpO2: 96% Min/Max in Last 24h Most Recent Value Temp Min: 36.9 ??C (98.4 ??F) Max: 36.9 ??C (98.4 ??F) Temp: 36.9 ??C (98.4 ??F) Pulse Min: 76 Max: 88 Heart Rate: 88 Resp Min: 21 Max: 27 Resp: (!) 27 BP Min: 118/86 Max: 159/71 BP: 118/86 SpO2 Min: 89 % Max: 96 % SpO2: 96 % Body mass index is 24.13 kg/m??. GENERAL: patient was confused at the time of my evaluation. SKIN: Warm, dry. No rashes. HEENT: Ecchymosis noted at the left forehead. She had a hematoma noted on the right posteriolateralaspect of the head. PERRLA, EOMI. Neck supple. ABDOMINAL: soft, nontenderGU: Deferred. MUSCULOSKELETAL: On exam of the LLE, it is shortened and externally rotated. She was TTP to left hip, ROM deffered due to known fracture. FROM of ankle and toes, NV intact. FROM of LLE. FROM of bilateral upper extremities. NV intact. Imaging CT Lower Extremity wo Contrast Left Narrative: PROCEDURE: Left lower extremity CT INDICATION: Fracture, pain TECHNIQUE: CT of the left lower extremity without intravenous contrast. Multiplanar reformats. The examination was performed utilizing dose reduction techniques. Total DLP 468. 3-D reformatted imageswere created on an independent workstation with direct [...] are unremarkable. No mass or fluid collection. Impression: Impacted and angulated left femoral neck fracture -------- FINAL REPORT -------- Dictated By: KYLER BARRERA Dictated Date: 11/14/2024 12:26 ET Assigned Physician: KYLER BARRERA Reviewed and Electronically Signed By: KYLER BARRERA Signed Date: 11/14/2024 12:30 ET Workstation ID: [id number] Transcribed By: Self Edit Transcribed Date: 11/14/2024 12:26 ET XR Chest 1 View Narrative: Procedure: AP chest radiograph. HISTORY: weakness, fall. COMPARISON: None. FINDINGS: Linear markings at the bases suggesting mild subsegmental atelectasis. Pleural spaces, pulmonary vasculature, and heart size are normal. Atherosclerotic calcifications of the aorta. Mild degenerativechanges of the spine. Impression: No acute findings. -------- FINAL REPORT -------- Dictated By: Vinayak Austin Dictated Date: 11/14/2024 11:08 ET Assigned Physician: Vinayak Austin Reviewed and Electronically Signed By: Vinayak Austin Signed Date: 11/14/2024 11:08 ET Workstation ID: [id number] Transcribed By: Self Edit Transcribed Date: 11/14/2024 11:08 ET XR Hip 2-3 Views Left Narrative: Multiple views of the left hip, 11/14/2024. HISTORY: trauma. COMPARISON: None. FINDINGS: Bones appear demineralized. There are mild degenerative changes of the lumbar spine, pubic symphysis, and hips. There is an acute transcervical femoral neck fracture. No significant displacement or angulation. Impression: Acute transcervical femoral neck fracture. -------- FINAL REPORT -------- Dictated By: Vinayak Austin Dictated Date: 11/14/2024 11:05 ET Assigned Physician: Vinayak Austin Reviewed and Electronically Signed By: Vinayak Austin Signed Date: 11/14/2024 11:08 ET Workstation ID: [id number] Transcribed By: Self Edit Transcribed Date: 11/14/2024 11:[address] Head wo Contrast Narrative: PROCEDURE: Noncontrast head CT. HISTORY: trauma. COMPARISON: None. TECHNIQUE: Noncontrast head CT with coronal and sagittal reformats. Dose length product: 1070 mGy-cm. FINDINGS: Brain: There is a subdural hematoma along the right convexity which measures up to 8 mm in thickness. The hematomas of mixed attenuation but is predominantly hyperattenuating suggestive of acute blood products. Minimal mass effect. No midline shift. No CT evidence of an acute infarct. No mass. Atherosclerotic calcifications of the carotid siphons. Small dystrophic calcifications of the globus pallidus bilaterally. No CT evidence of an acute large vessel infarct. Ventricles and sulci are age commensurate. Orbits: Normal. Sinuses/mastoids: Small amount of layering fluid in the right sphenoid sinus. Small amount of bubbly debris in one of the posterior right ethmoid air cells. Calvarium: Mild hyperostosis frontalis interna. Other: Partially calcified oval 13 mm scalp mass at the right parietal vertex, likely an epidermal inclusion cyst. Degenerative changes of the temporomandibular joints, right greater than left. Impression: 8 mm subdural hematoma along the right convexity. -------- FINAL REPORT -------- Dictated By: Vinayak Austin Dictated Date: 11/14/2024 10:30 ET Assigned Physician: Vinayak Austin Reviewed and Electronically Signed By: Vinayak Austin Signed Date: 11/14/2024 10:36 ET Workstation ID: [id number] Transcribed By: Self Edit Transcribed Date: 11/14/2024 10:30 ET Labs Hematology Lab Results Component Value Date WBC 11.6 (H) 11/14/2024 HGB 12.3 11/14/2024 HCT 38.2 11/14/2024 MCV 94.1 11/14/2024 PLT 214 11/14/2024 Chemistry Lab Results Component Value Date GLUCOSE 130 (H) 11/14/2024 NA 137 11/14/2024 K 3.6 11/14/2024 CO2 25 11/14/2024 CL 107 11/14/2024 BUN 24 11/14/2024 CREATININE 0.96 11/14/2024 EGFR 61 11/14/2024 CALCIUM 8.9 11/14/2024 ANIONGAP 5 11/14/2024 Encounter Date: 11/14/24 ECG 12 lead Result Value Ventricular Rate ECG 80 Atrial Rate 80 P-R Interval 126 QRS Duration 80 Q-T Interval 430 QTc 495 R [place] 31 T [place] -53 ECG Interpretation Normal sinus rhythm Nonspecific T wave abnormality Abnormal ECG No previous ECGs available *Note: Due to a large number of results and/or encounters for the requested time period, some results have not been displayed. A complete set of results can be found in Results Review. Assessment/Recommendations Isabela Rios is a 79 y.o. female s/p fall resulting in a left hip fracture and subdural hematoma. Conservative and surgical intervention discussed with the patient's as patient was confused. Our recommendation is surgical intervention for the left hip fracture with Dr Hester . Dr Hester hasexplained the nature, purpose, risks and benefits of the operation. Risks benefits and tree-procedure expectations were explained to the patient's . All questions were answered by the orthopedic team to the patient's . The patient's understands and is in agreement with surgical intervention rather than conservative treatment. Informed consent was obtained for this operation. Activity: Bedrest, NWB left LE, PT/OT will be ordered postoperatively Analgesics: Continue scheduled acetaminophen and narcotics as needed, minimize narcotics. Antibiotics: IV Cefazolin x 24H periop Anticoagulation: Intermittent pneumatic compression. All chemical DVT prophylaxis to be held preoperatively and will be initiated postoperatively most likely with Lovenox while inpatient and transitioned to aspirin 81 mg p.o. twice daily x6 weeks. Additional: NPO at midnight of Sunday11/15/24, encourage incentive spirometry Admit to medicine for continued treatment Ask that primary team optimizes patient for surgery and provides preoperative evaluation Plan for Hip Hemiarthroplasty on Sunday11/16/24 pending clearance. Consent Obtained Discussed and reviewed with Dr. Hester, orthopedic surgery attending. FRANCES Arnold Orthopedic Surgery 11/14/2024 2:51 PM EST documented in this encounter Plan of Treatment Upcoming Encounters Date Type Department Care Team (Late st Contact Info) Description 12/05/2024 10:45 AM EST Appointment [facility] CT Scan [address] [place] [phone] 12/05/2024 11:15 AM EST Office Visit Neurosurgery [place] [facility] [address] [place] [phone] Ashley Davis PA [address], [address] [place] [address] 03/06/2025 11:30 AM EDT Office Visit [facility] [address] [place] [phone] Garcia Doran MD [address] [place] [address] documented as of this encounter Procedures Procedure [...] requiring operative repair, left, closed, initial encounter ([facility]) PA HEMIARTHROPLASTY HIP PARTIAL 11/17/2024 12:14 PM EST Hip fracture requiring operative repair, left, closed, initial encounter ([facility]) Case Notes c arm, implants, lateral position CBC WITH AUTO DIFFERENTIAL Routine 11/17/2024 6:43 AM EST CBC AND DIFFERENTIAL Routine 11/17/2024 6:43 AM EST BASIC METABOLIC PANEL Routine 11/17/2024 6:[address] ANGIO CHEST WO AND/OR W CONTRAST STAT 11/16/2024 10:13 AM EST Hypoxia RESPIRATORY VIRUS PANEL MOLECULAR STUDY Routine 11/16/2024 5:44 AM EST ARTERIAL BLOOD GAS STAT 11/16/2024 5: 42 AM EST XR CHEST 1 VIEW STAT 11/16/2024 4:[address] HEAD WO CONTRAST Routine 11/15/2024 8 :03 AM EST CBC WITH AUTO DIFFERENTIAL Routine 11/15/2024 6:27 AM EST CBC AND DIFFERENTIAL Routine 11/15/2024 6:27 AM EST MAGNESIUM Routine 11/15/2024 6:27 AM EST VITAMIN B12 Add-On 11/15/2024 6:27 AM EST BASIC METABOLIC PANEL Routine 11/15/2024 6:27 AM EST ACTIVATED PARTIAL THROMBOPLASTIN TIME Routine 11/14/2024 8:37 PM EST PROTHROMBIN TIME WITH INR Routine 11/14/2024 8:[address] HEAD WO CONTRAST STAT 11/14/2024 2 :27 PM EST URINALYSIS WITH REFLEX MICROSCOPIC AND CULTURE STAT 11/14/2024 1:58 PM EST ESTRADA URINE CULTURE TUBE STAT 11/14/19 1:58 PM EST URINALYSIS WITH REFLEX MICROSCOPIC [...] WO CONTRAST STAT 11/14/2024 10:23 AM EST TROPONIN I HIGH SENSITIVITY STAT 11/14/2024 9:58 AM EST CBC WITH AUTO DIFFERENTIAL STAT 11/14/2024 9:58 AM EST CBC AND DIFFERENTIAL STAT 11/14/2024 9:58 AM EST THYROID STIMULATING HORMONE Add-On 11/14/2024 9:58 AM EST CREATINE KINASE STAT 11/14/2024 9:58 AM EST COMPREHENSIVE METABOLIC PANEL STAT 11/14/2024 9:58 AM EST ECG 12-LEAD Routine 11/14/2024 9:41 AM EST PA CRITICAL CARE EACH ADDITIONAL 30 MINUTES Routine 11/14/2024 9:21 AM EST PA CRITICAL CARE EACH ADDITIONAL 30 MINUTES Routine 11/14/2024 9:21 AM EST PA CRITICAL CARE EACH ADDITIONAL 30 MINUTES Routine 11/14/2024 9:21 AM EST documented in this encounter Results * (ABNORMAL) Complete blood count (11/26/2024 5:49 AM EST) [facility] WBC 8.6 4.8 - 10.8 K/mcL LAB HEMETOLOGY METHOD 11/26/2024 6:52 AM [facility] RBC 2.50(L) 3.80 - 4.80 M/mcL LAB HEMETOLOGY METHOD 11/26/2024 6:52 AM [facility] Hemoglobin 7.8(L) 11.5 - 16.0 g/dL LAB HEMETOLOGY METHOD 11/26/2024 6:52 AM [facility] Hematocrit 25.0(L) 35.0 - 47.0 % LAB HEMETOLOGY METHOD 11/26/2024 6:52 AM [facility] MCV 98.8(H) 79.0 - 98.0 FL LAB HEMETOLOGY METHOD 11/26/2024 6:52 AM [facility] MCH 30.8 27.0 - 32.0 pcg LAB HEMETOLOGY METHOD 11/26/2024 6:52 AM [facility] MCHC 31.2(L) 32.0 - 37.0 g/dL LAB HEMETOLOGY METHOD 11/26/2024 6:52 AM EST [facility] RDW 16.2(H) 11.0 - 15.0 % LAB HEMETOLOGY METHOD 11/26/2024 6:52 AM EST [facility] Platelets 478(H) 130 - 400 K/mcL LAB HEMETOLOGY METHOD 11/26/2024 6:52 AM EST [facility] MPV 9.2 7.0 - 11.0 FL LAB HEMETOLOGY METHOD 11/26/2024 6:52 AM EST [facility] NRBC 0.0 <1.0 % LAB HEMETOLOGY METHOD 11/26/2024 6:52 AM EST [facility] NRBC Absolute 0.00 <0.10 K/mcL LAB HEMETOLOGY METHOD 11/26/2024 6:52 AM EST [facility] Blood Venous blood specimen / Unknown Venipuncture / Unknown 11/26/2024 5:49 AM EST 11/26/2024 6:33 AM EST Jaz DANIELS LAB BLOOD ORDERABLES [facility] [address] [place] [address], * Basic metabolic panel (11/26/2024 5:49 AM EST) Sodium 138 133 - 145 mmol/L LAB CHEMISTRY METHOD 11/26/2024 7:10 AM EST [facility] Potassium 4.5 3.5 - 5.5 mmol/L LAB CHEMISTRY METHOD 11/26/2024 7:10 AM EST [facility] Chloride 105 96 - 110 mmol/L LAB CHEMISTRY METHOD 11/26/2024 7:10 AM EST [facility] CO2 29 21 - 32 mmol/L LAB CHEMISTRY METHOD 11/26/2024 7:10 AM [facility] Anion Gap 4 3 - 11 LAB CHEMISTRY METHOD 11/26/2024 7:10 AM [facility] Glucose 86 70 - 100 mg/dL LAB CHEMISTRY METHOD 11/26/2024 7:10 AM [facility] BUN 15 5 - 25 mg/dL LAB CHEMISTRY METHOD 11/26/2024 7:10 AM [facility] Creatinine 0.72 0.50 - 1.10 mg/dL LAB CHEMISTRY METHOD 11/26/2024 7:10 AM [facility] eGFR 86 >=60 mL/min/1. 73m2 LAB CHEMISTRY METHOD 11/26/2024 7:10 AM [facility] Comment:Calculation based on the??Chronic Kidney Disease Epidemiology Collaboration (CKD-EPI) equation refit??without adjustment for race. BUN/Creatinine Ratio 20.8 LAB CHEMISTRY METHOD 11/26/2024 7:10 AM [facility] [facility] Calcium 8.7 8.5 - 10.5 mg/dL LAB CHEMISTRY METHOD 11/26/2024 7:10 AM [facility] Blood Venous blood specimen / Unknown Venipuncture / Unknown 11/26/2024 5:49 AM EST 11/26/2024 6:33 AM EST Jaz DANIELS LAB BLOOD ORDERABLES [facility] [address] [place] [address], * (ABNORMAL) Complete blood count (11/25/2024 6:59 AM EST) WBC 9.7 4.8 - 10.8 K/mcL LAB HEMETOLOGY METHOD 11/25/2024 8:05 AM EST [facility] RBC 2.70(L) 3.80 - 4.80 M/mcL LAB HEMETOLOGY METHOD 11/25/2024 8:05 AM [facility] Hemoglobin 8.1(L) 11.5 - 16.0 g/dL LAB HEMETOLOGY METHOD 11/25/2024 8:05 AM [facility] Hematocrit 25.6(L) 35.0 - 47.0 % LAB HEMETOLOGY METHOD 11/25/2024 8:05 AM [facility] MCV 95.9 79.0 - 98.0 FL LAB HEMETOLOGY METHOD 11/25/2024 8:05 AM [facility] MCH 30.3 27.0 - 32.0 pcg LAB HEMETOLOGY METHOD 11/25/2024 8:05 AM [facility] MCHC 31.6(L) 32.0 - 37.0 g/dL LAB HEMETOLOGY METHOD 11/25/2024 8:05 AM [facility] RDW 15.9(H) 11.0 - 15.0 % LAB HEMETOLOGY METHOD 11/25/2024 8:05 AM [facility] Platelets 437(H) 130 - 400 K/mcL LAB HEMETOLOGY METHOD 11/25/2024 8:05 AM [facility] MPV 9.3 7.0 - 11.0 FL LAB HEMETOLOGY METHOD 11/25/2024 8:05 AM [facility] NRBC 0.0 <1.0 % LAB HEMETOLOGY METHOD 11/25/2024 8:05 AM [facility] NRBC Absolute 0.00 <0.10 K/mcL LAB HEMETOLOGY METHOD 11/25/2024 8:05 AM [facility] Blood Venous blood specimen / Unknown Venipuncture / Unknown 11/25/2024 6:59 AM EST 11/25/2024 7:47 AM EST Jaz DANIELS LAB BLOOD ORDERABLES [facility] [address] [place] [address], [place] [phone] * (ABNORMAL) Basic metabolic panel (11/25/2024 6:59 AM EST) Sodium 136 133 - 145 mmol/L LAB CHEMISTRY METHOD 11/25/2024 8:47 AM [facility] Potassium 4.4 3.5 - 5.5 mmol/L LAB CHEMISTRY METHOD 11/25/2024 8:47 AM [facility] Chloride 104 96 - 110 mmol/L LAB CHEMISTRY METHOD 11/25/2024 8:47 AM [facility] CO2 30 21 - 32 mmol/L LAB CHEMISTRY METHOD 11/25/2024 8:47 AM [facility] Anion Gap 2(L) 3 - 11 LAB CHEMISTRY METHOD 11/25/2024 8:47 AM [facility] Glucose 95 70 - 100 mg/dL LAB CHEMISTRY METHOD 11/25/2024 8:47 AM [facility] BUN 16 5 - 25 mg/dL LAB CHEMISTRY METHOD 11/25/2024 8:47 AM [facility] Creatinine 0.75 0.50 - 1.10 mg/dL LAB CHEMISTRY METHOD 11/25/2024 8:47 AM [facility] eGFR 82 >=60 mL/min/1. 73m2 LAB CHEMISTRY METHOD 11/25/2024 8:47 AM [facility] Comment:Calculation based on the??Chronic Kidney Disease Epidemiology Collaboration (CKD-EPI) equation refit??without adjustment for race. BUN/Creatinine Ratio 21.3 LAB CHEMISTRY METHOD 11/25/2024 8:47 AM [facility] Calcium 8.8 8.5 - 10.5 mg/dL LAB CHEMISTRY METHOD 11/25/2024 8:47 AM [facility] Blood Venous blood specimen / Unknown Venipuncture / Unknown 11/25/2024 6:59 AM EST 11/25/2024 7:36 AM EST Jaz DANIELS LAB BLOOD ORDERABLES [facility] [address] [place] [address], * (ABNORMAL) Complete blood count (11/24/2024 6:24 AM EST) WBC 8.1 4.8 - 10.8 K/mcL LAB HEMETOLOGY METHOD 11/24/2024 7:31 AM [facility] RBC 2.80(L) 3.80 - 4.80 M/mcL LAB HEMETOLOGY METHOD 11/24/2024 7:31 AM [facility] Hemoglobin 8.8(L) 11.5 - 16.0 g/dL LAB HEMETOLOGY METHOD 11/24/2024 7:31 AM [facility] Hematocrit 26.9(L) 35.0 - 47.0 % LAB HEMETOLOGY METHOD 11/24/2024 7:31 AM [facility] MCV 96.1 79.0 - 98.0 FL LAB HEMETOLOGY METHOD 11/24/2024 7:31 AM [facility] MCH 31.4 27.0 - 32.0 pcg LAB HEMETOLOGY METHOD 11/24/2024 7:31 AM [facility] MCHC 32.7 32.0 - 37.0 g/dL LAB HEMETOLOGY METHOD 11/24/2024 7:31 AM [facility] RDW 15.4(H) 11.0 - 15.0 % LAB HEMETOLOGY METHOD 11/24/2024 7:31 AM [facility] Platelets 389 130 - 400 K/mcL LAB HEMETOLOGY METHOD 11/24/2024 7:31 AM [facility] MPV 9.2 7.0 - 11.0 FL LAB HEMETOLOGY METHOD 11/24/2024 7:31 AM EST [facility] NRBC 0.2 <1.0 % LAB HEMETOLOGY METHOD 11/24/2024 7:31 AM EST [facility] NRBC Absolute 0.02 <0.10 K/mcL LAB HEMETOLOGY METHOD 11/24/2024 7:31 AM EST [facility] Blood Venous blood specimen / Unknown Venipuncture / Unknown 11/24/2024 6:24 AM EST 11/24/2024 6:48 AM EST Jaz DANIELS LAB BLOOD ORDERABLES [facility] [address] [place] [address], * (ABNORMAL) Basic metabolic panel (11/24/2024 6:24 AM EST) Sodium 138 133 - 145 mmol/L LAB CHEMISTRY METHOD 11/24/2024 8:12 AM [facility] Potassium 4.1 3.5 - 5.5 mmol/L LAB CHEMISTRY METHOD 11/24/2024 8:12 AM [facility] Chloride 105 96 - 110 mmol/L LAB CHEMISTRY METHOD 11/24/2024 8:12 AM [facility] CO2 30 21 - 32 mmol/L LAB CHEMISTRY METHOD 11/24/2024 8:12 AM [facility] Anion Gap 3 3 - 11 LAB CHEMISTRY METHOD 11/24/2024 8:12 AM [facility] Glucose 101(H) 70 - 100 mg/dL LAB CHEMISTRY METHOD 11/24/2024 8:12 AM [facility] BUN 16 5 - 25 mg/dL LAB CHEMISTRY METHOD 11/24/2024 8:12 AM [facility] Creatinine 0.77 0.50 - 1.10 mg/dL LAB CHEMISTRY METHOD 11/24/2024 8:12 AM EST [facility] eGFR 80 >=60 mL/min/1. 73m2 LAB CHEMISTRY METHOD 11/24/2024 8:12 AM [facility] Comment:Calculation based on the??Chronic Kidney Disease Epidemiology Collaboration (CKD-EPI) equation refit??without adjustment for race. BUN/Creatinine Ratio 20.8 LAB CHEMISTRY METHOD 11/24/2024 8:12 AM [facility] Calcium 8.8 8.5 - 10.5 mg/dL LAB CHEMISTRY METHOD 11/24/2024 8:12 AM [facility] Blood Venous blood specimen / Unknown Venipuncture / Unknown 11/24/2024 6:24 AM EST 11/24/2024 6:48 AM EST Jaz DANIELS LAB BLOOD ORDERABLES [facility] [address] [place] [address], * (ABNORMAL) Complete blood count (11/23/2024 6:25 AM EST) WBC 9.4 4.8 - 10.8 K/mcL LAB HEMETOLOGY METHOD 11/23/2024 7:28 AM [facility] RBC 2.80(L) 3.80 - 4.80 M/mcL LAB HEMETOLOGY METHOD 11/23/2024 7:28 AM [facility] Hemoglobin 8.7(L) 11.5 - 16.0 g/dL LAB HEMETOLOGY METHOD 11/23/2024 7:28 AM [facility] Hematocrit 27.2(L) 35.0 - 47.0 % LAB HEMETOLOGY METHOD 11/23/2024 7:28 AM [facility] MCV 96.5 79.0 - 98.0 FL LAB HEMETOLOGY METHOD 11/23/2024 7:28 AM EST [facility] MCH 30.9 27.0 - 32.0 pcg LAB HEMETOLOGY METHOD 11/23/2024 7:28 AM EST [facility] MCHC 32.0 32.0 - 37.0 g/dL LAB HEMETOLOGY METHOD 11/23/2024 7:28 AM EST [facility] RDW 15.3(H) 11.0 - 15.0 % LAB HEMETOLOGY METHOD 11/23/2024 7:28 AM EST [facility] Platelets 345 130 - 400 K/mcL LAB HEMETOLOGY METHOD 11/23/2024 7:28 AM EST [facility] MPV 9.6 7.0 - 11.0 FL LAB HEMETOLOGY METHOD 11/23/2024 7:28 AM EST [facility] NRBC 0.0 <1.0 % LAB HEMETOLOGY METHOD 11/23/2024 7:28 AM EST [facility] NRBC Absolute 0.00 <0.10 K/mcL LAB HEMETOLOGY METHOD 11/23/2024 7:28 AM [facility] Blood Venous blood specimen / Unknown Venipuncture / Unknown 11/23/2024 6:25 AM EST 11/23/2024 7:04 AM EST Jaz DANIELS LAB BLOOD ORDERABLES [facility] [address] [place] [address], * Basic metabolic panel (11/23/2024 6:25 AM EST) Sodium 139 133 - 145 mmol/L LAB CHEMISTRY METHOD 11/23/2024 7:38 AM EST [facility] Potassium 4.2 3.5 - 5.5 mmol/L LAB CHEMISTRY METHOD 11/23/2024 7:38 AM [facility] Chloride 106 96 - 110 mmol/L LAB CHEMISTRY METHOD 11/23/2024 7:38 AM [facility] CO2 29 21 - 32 mmol/L LAB CHEMISTRY METHOD 11/23/2024 7:38 AM [facility] Anion Gap 4 3 - 11 LAB CHEMISTRY METHOD 11/23/2024 7:38 AM [facility] Glucose 89 70 - 100 mg/dL LAB CHEMISTRY METHOD 11/23/2024 7:38 AM [facility] BUN 15 5 - 25 mg/dL LAB CHEMISTRY METHOD 11/23/2024 7:38 AM [facility] Creatinine 0.64 0.50 - 1.10 mg/dL LAB CHEMISTRY METHOD 11/23/2024 7:38 AM [facility] eGFR 91 >=60 mL/min/1. 73m2 LAB CHEMISTRY METHOD 11/23/2024 7:38 AM [facility] Comment:Calculation based on the??Chronic Kidney Disease Epidemiology Collaboration (CKD-EPI) equation refit??without adjustment for race. BUN/Creatinine Ratio 23.4 LAB CHEMISTRY METHOD 11/23/2024 7:38 AM [facility] Calcium 8.9 8.5 - 10.5 mg/dL LAB CHEMISTRY METHOD 11/23/2024 7:38 AM [facility] Blood Venous blood specimen / Unknown Venipuncture / Unknown 11/23/2024 6:25 AM EST 11/23/2024 7:04 AM EST Jaz DANIELS LAB BLOOD ORDERABLES [facility] [address] [place] [address], * (ABNORMAL) Complete blood count (11/22/2024 6:37 AM EST) WBC 8.6 4.8 - 10.8 K/mcL LAB HEMETOLOGY METHOD 11/22/2024 7:20 AM [facility] RBC 2.70(L) 3.80 - 4.80 M/[facility] LAB HEMETOLOGY METHOD 11/22/2024 7:20 AM [facility] Hemoglobin 8.3(L) 11.5 - 16.0 g/dL LAB HEMETOLOGY METHOD 11/22/2024 7:20 AM [facility] Hematocrit 25.9(L) 35.0 - 47.0 % LAB HEMETOLOGY METHOD 11/22/2024 7:20 AM [facility] MCV 96.6 79.0 - 98.0 FL LAB HEMETOLOGY METHOD 11/22/2024 7:20 AM [facility] MCH 31.0 27.0 - 32.0 pcg LAB HEMETOLOGY METHOD 11/22/2024 7:20 AM [facility] MCHC 32.0 32.0 - 37.0 g/dL LAB HEMETOLOGY METHOD 11/22/2024 7:20 AM [facility] RDW 15.0 11.0 - 15.0 % LAB HEMETOLOGY METHOD 11/22/2024 7:20 AM [facility] Platelets 273 130 - 400 K/mcL LAB HEMETOLOGY METHOD 11/22/2024 7:20 AM [facility] MPV 9.3 7.0 - 11.0 FL LAB HEMETOLOGY METHOD 11/22/2024 7:20 AM [facility] NRBC 0.0 <1.0 % LAB HEMETOLOGY METHOD 11/22/2024 7:20 AM [facility] NRBC Absolute 0.00 <0.10 K/mcL LAB HEMETOLOGY METHOD 11/22/2024 7:20 AM [facility] Blood Venous blood specimen / Unknown Venipuncture / Unknown 11/22/2024 6:37 AM EST 11/22/2024 7:01 AM EST Jaz DANIELS LAB BLOOD ORDERABLES [facility] [address] [place] [address], * (ABNORMAL) Basic metabolic panel (11/22/2024 6:37 AM EST) Sodium 139 133 - 145 mmol/L LAB CHEMISTRY METHOD 11/22/2024 8:17 AM [facility] Potassium 4.9 3.5 - 5.5 mmol/L LAB CHEMISTRY METHOD 11/22/2024 8:17 AM [facility] Chloride 106 96 - 110 mmol/L LAB CHEMISTRY METHOD 11/22/2024 8:17 AM [facility] CO2 31 21 - 32 mmol/L LAB CHEMISTRY METHOD 11/22/2024 8:17 AM [facility] Anion Gap 2(L) 3 - 11 LAB CHEMISTRY METHOD 11/22/2024 8:17 AM [facility] Glucose 98 70 - 100 mg/dL LAB CHEMISTRY METHOD 11/22/2024 8:17 AM [facility] BUN 17 5 - 25 mg/dL LAB CHEMISTRY METHOD 11/22/2024 8:17 AM [facility] Creatinine 0.64 0.50 - 1.10 mg/dL LAB CHEMISTRY METHOD 11/22/2024 8:17 AM [facility] eGFR 91 >=60 mL/min/1. 73m2 LAB CHEMISTRY METHOD 11/22/2024 8:17 AM [facility] Comment:Calculation based on the??Chronic Kidney Disease Epidemiology Collaboration (CKD-EPI) equation refit??without adjustment for race. BUN/Creatinine Ratio 26.6 LAB CHEMISTRY METHOD 11/22/2024 8:17 AM [facility] Calcium 8.5 8.5 - 10.5 mg/dL LAB CHEMISTRY METHOD 11/22/2024 8:17 AM EST [facility] Blood Venous blood specimen / Unknown Venipuncture / Unknown 11/22/2024 6:37 AM EST 11/22/2024 7:01 AM EST Jaz DANIELS LAB BLOOD ORDERABLES [facility] [address] [place] [address], * CT Head wo Contrast (11/21/2024 8:31 AM EST) Anatomical Region Laterality Modality Head and Neck Computed Tomogra phy 11/21/2024 8:43 AM EST Impressions 11/21/2024 8:46 AM EST Stable right cerebral convexity subdural hematoma with unchanged mass effect. ??No new bleeding or progressive mass effect. -------- FINAL REPORT -------- Dictated By: YKLER BARRERA Dictated Date: 11/21/2024 08:43 ET Assigned Physician: KYLER BARRERA Reviewed and Electronically Signed By: KYLER BARRERA Signed Date: 11/21/2024 08:46 ET Workstation ID: [id number] Transcribed By: Self Edit Transcribed Date: 11/21/2024 [...] hydrocephalus. Extracranial structures are unchanged. Procedure Note Kyler Barrera MD - 11/21/2024 PROCEDURE: HEAD CT [...] effect. -------- FINAL REPORT -------- Dictated By: KYLER BARRERA Dictated Date: 11/21/2024 08:43 ET Assigned Physician: KYLER BARRERA Reviewed and Electronically Signed By: KYLER BARRERA Signed Date: 11/21/2024 08:46 ET Workstation ID: [id number] Transcribed By: Self Edit Transcribed Date: 11/21/2024 08:43 ET Janey DANIELS IMG CT PROCEDURES * (ABNORMAL) Complete blood count (11/21/2024 5:41 AM EST) WBC 8.4 4.8 - 10.8 K/[facility] LAB HEMETOLOGY METHOD 11/21/2024 7:17 AM [facility] RBC 2.70(L) 3.80 - 4.80 M/[facility] LAB HEMETOLOGY METHOD 11/21/2024 7:17 AM [facility] Hemoglobin 8.2(L) 11.5 - 16.0 g/dL LAB HEMETOLOGY METHOD 11/21/2024 7:17 AM [facility] Hematocrit 26.0(L) 35.0 - 47.0 % LAB HEMETOLOGY METHOD 11/21/2024 7:17 AM EST [facility] MCV 96.3 79.0 - 98.0 FL LAB HEMETOLOGY METHOD 11/21/2024 7:17 AM [facility] MCH 30.4 27.0 - 32.0 pcg LAB HEMETOLOGY METHOD 11/21/2024 7:17 AM EST [facility] MCHC 31.5(L) 32.0 - 37.0 g/dL LAB HEMETOLOGY METHOD 11/21/2024 7:17 AM [facility] RDW 15.2(H) 11.0 - 15.0 % LAB HEMETOLOGY METHOD 11/21/2024 7:17 AM [facility] Platelets 235 130 - 400 K/mcL LAB HEMETOLOGY METHOD 11/21/2024 7:17 AM EST [facility] MPV 9.8 7.0 - 11.0 FL LAB HEMETOLOGY METHOD 11/21/2024 7:17 AM EST [facility] NRBC 0.0 <1.0 % LAB HEMETOLOGY METHOD 11/21/2024 7:17 AM [facility] NRBC Absolute 0.00 <0.10 K/mcL LAB HEMETOLOGY METHOD 11/21/2024 7:17 AM EST [facility] Blood Venous blood specimen / Unknown Venipuncture / Unknown 11/21/2024 5:41 AM EST 11/21/2024 6:25 AM EST Jaz DANIELS LAB BLOOD ORDERABLES [facility] [address] [place] [address], * (ABNORMAL) Basic metabolic panel (11/21/2024 5:41 AM EST) Sodium 138 133 - 145 mmol/L LAB CHEMISTRY METHOD 11/21/2024 7:13 AM [facility] Potassium 4.0 3.5 - 5.5 mmol/L LAB CHEMISTRY METHOD 11/21/2024 7:13 AM [facility] Chloride 104 96 - 110 mmol/L LAB CHEMISTRY METHOD 11/21/2024 7:13 AM [facility] CO2 29 21 - 32 mmol/L LAB CHEMISTRY METHOD 11/21/2024 7:13 AM [facility] Anion Gap 5 3 - 11 LAB CHEMISTRY METHOD 11/21/2024 7:13 AM [facility] Glucose 99 70 - 100 mg/dL LAB CHEMISTRY METHOD 11/21/2024 7:13 AM [facility] BUN 18 5 - 25 mg/dL LAB CHEMISTRY METHOD 11/21/2024 7:13 AM [facility] Creatinine 0.60 0.50 - 1.10 mg/dL LAB CHEMISTRY METHOD 11/21/2024 7:13 AM [facility] eGFR 93 >=60 mL/min/1. 73m2 LAB CHEMISTRY METHOD 11/21/2024 7:13 AM [facility] Comment:Calculation based on the??Chronic Kidney Disease Epidemiology Collaboration (CKD-EPI) equation refit??without adjustment for race. BUN/Creatinine Ratio 30.0 LAB CHEMISTRY METHOD 11/21/2024 7:13 AM [facility] Calcium 8.1(L) 8.5 - 10.5 mg/dL LAB CHEMISTRY METHOD 11/21/2024 7:13 AM [facility] Blood Venous blood specimen / Unknown Venipuncture / Unknown 11/21/2024 5:41 AM EST 11/21/2024 6:25 AM EST Jaz DANIELS LAB BLOOD ORDERABLES [facility] [address] [place] [address], * (ABNORMAL) Complete blood count (11/20/2024 6:09 AM EST) [facility] WBC 7.6 4.8 - 10.8 K/mcL LAB HEMETOLOGY METHOD 11/20/2024 7:53 AM [facility] RBC 2.70(L) 3.80 - 4.80 M/mcL LAB HEMETOLOGY METHOD 11/20/2024 7:53 AM [facility] Hemoglobin 8.3(L) 11.5 - 16.0 g/dL LAB HEMETOLOGY METHOD 11/20/2024 7:53 AM [facility] Hematocrit 26.4(L) 35.0 - 47.0 % LAB HEMETOLOGY METHOD 11/20/2024 7:53 AM [facility] MCV 97.8 79.0 - 98.0 FL LAB HEMETOLOGY METHOD 11/20/2024 7:53 AM [facility] MCH 30.7 27.0 - 32.0 pcg LAB HEMETOLOGY METHOD 11/20/2024 7:53 AM [facility] MCHC 31.4(L) 32.0 - 37.0 g/dL LAB HEMETOLOGY METHOD 11/20/2024 7:53 AM [facility] RDW 15.4(H) 11.0 - 15.0 % LAB HEMETOLOGY METHOD 11/20/2024 7:53 AM [facility] Platelets 195 130 - 400 K/mcL LAB HEMETOLOGY METHOD 11/20/2024 7:53 AM [facility] MPV 10.1 7.0 - 11.0 FL LAB HEMETOLOGY METHOD 11/20/2024 7:53 AM [facility] NRBC 0.0 <1.0 % LAB HEMETOLOGY METHOD 11/20/2024 7:53 AM EST [facility] NRBC Absolute 0.00 <0.10 K/mcL LAB HEMETOLOGY METHOD 11/20/2024 7:53 AM [facility] Blood Venous blood specimen / Unknown Venipuncture / Unknown 11/20/2024 6:09 AM EST 11/20/2024 7:28 AM EST Jaz DANIELS LAB BLOOD ORDERABLES [facility] [address] [place] [address], * (ABNORMAL) Basic metabolic panel (11/20/2024 6:09 AM EST) Sodium 138 133 - 145 mmol/L LAB CHEMISTRY METHOD 11/20/2024 8:32 AM [facility] Potassium 4.1 3.5 - 5.5 mmol/L LAB CHEMISTRY METHOD 11/20/2024 8:32 AM [facility] Chloride 106 96 - 110 mmol/L LAB CHEMISTRY METHOD 11/20/2024 8:32 AM [facility] CO2 30 21 - 32 mmol/L LAB CHEMISTRY METHOD 11/20/2024 8:32 AM [facility] Anion Gap 2(L) 3 - 11 LAB CHEMISTRY METHOD 11/20/2024 8:32 AM [facility] Glucose 94 70 - 100 mg/dL LAB CHEMISTRY METHOD 11/20/2024 8:32 AM [facility] BUN 21 5 - 25 mg/dL LAB CHEMISTRY METHOD 11/20/2024 8:32 AM [facility] Creatinine 0.67 0.50 - 1.10 mg/dL LAB CHEMISTRY METHOD 11/20/2024 8:32 AM [facility] eGFR 90 >=60 mL/min/1. 73m2 LAB CHEMISTRY METHOD 11/20/2024 8:32 AM [facility] Comment:Calculation based on the??Chronic Kidney Disease Epidemiology Collaboration (CKD-EPI) equation refit??without adjustment for race. BUN/Creatinine Ratio 31.3 LAB CHEMISTRY METHOD 11/20/2024 8:32 AM [facility] Calcium 8.3(L) 8.5 - 10.5 mg/dL LAB CHEMISTRY METHOD 11/20/2024 8:32 AM [facility] Blood Venous blood specimen / Unknown Venipuncture / Unknown 11/20/2024 6:09 AM EST 11/20/2024 7:26 AM EST Jaz DANIELS LAB BLOOD ORDERABLES [facility] [address] [place] [address], * (ABNORMAL) Complete blood count (11/19/2024 6:01 AM EST) WBC 8.1 4.8 - 10.8 K/mcL LAB HEMETOLOGY METHOD 11/19/2024 7:06 AM [facility] RBC 2.70(L) 3.80 - 4.80 M/mcL LAB HEMETOLOGY METHOD 11/19/2024 7:06 AM [facility] Hemoglobin 8.3(L) 11.5 - 16.0 g/dL LAB HEMETOLOGY METHOD 11/19/2024 7:06 AM [facility] Hematocrit 25.8(L) 35.0 - 47.0 % LAB HEMETOLOGY METHOD 11/19/2024 7:06 AM [facility] MCV 95.2 79.0 - 98.0 FL LAB HEMETOLOGY METHOD 11/19/2024 7:06 AM [facility] MCH 30.6 27.0 - 32.0 pcg LAB HEMETOLOGY METHOD 11/19/2024 7:06 AM EST [facility] MCHC 32.2 32.0 - 37.0 g/dL LAB HEMETOLOGY METHOD 11/19/2024 7:06 AM [facility] RDW 15.6(H) 11.0 - 15.0 % LAB HEMETOLOGY METHOD 11/19/2024 7:06 AM [facility] Platelets 165 130 - 400 K/mcL LAB HEMETOLOGY METHOD 11/19/2024 7:06 AM [facility] MPV 10.4 7.0 - 11.0 FL LAB HEMETOLOGY METHOD 11/19/2024 7:06 AM [facility] NRBC 0.0 <1.0 % LAB HEMETOLOGY METHOD 11/19/2024 7:06 AM [facility] NRBC Absolute 0.00 <0.10 K/mcL LAB HEMETOLOGY METHOD 11/19/2024 7:06 AM [facility] Blood Venous blood specimen / Unknown Venipuncture / Unknown 11/19/2024 6:01 AM EST 11/19/2024 6:38 AM EST Jaz DANIELS LAB BLOOD ORDERABLES [facility] [address] [place] [address], * (ABNORMAL) Basic metabolic panel (11/19/2024 6:01 AM EST) Sodium 139 133 - 145 mmol/L LAB CHEMISTRY METHOD 11/19/2024 7:25 AM [facility] Potassium 4.0 3.5 - 5.5 mmol/L LAB CHEMISTRY METHOD 11/19/2024 7:25 AM [facility] Chloride 108 96 - 110 mmol/L LAB CHEMISTRY METHOD 11/19/2024 7:25 AM [facility] CO2 27 21 - 32 mmol/L LAB CHEMISTRY METHOD 11/19/2024 7:25 AM [facility] Anion Gap 4 3 - 11 LAB CHEMISTRY METHOD 11/19/2024 7:25 AM [facility] Glucose 97 70 - 100 mg/dL LAB CHEMISTRY METHOD 11/19/2024 7:25 AM [facility] BUN 25 5 - 25 mg/dL LAB CHEMISTRY METHOD 11/19/2024 7:25 AM [facility] Creatinine 0.71 0.50 - 1.10 mg/dL LAB CHEMISTRY METHOD 11/19/2024 7:25 AM [facility] eGFR 88 >=60 mL/min/1. 73m2 LAB CHEMISTRY METHOD 11/19/2024 7:25 AM [facility] Comment:Calculation based on the??Chronic Kidney Disease Epidemiology Collaboration (CKD-EPI) equation refit??without adjustment for race. BUN/Creatinine Ratio 35.2 LAB CHEMISTRY METHOD 11/19/2024 7:25 AM [facility] Calcium 8.1(L) 8.5 - 10.5 mg/dL LAB CHEMISTRY METHOD 11/19/2024 7:25 AM [facility] Blood Venous blood specimen / Unknown Venipuncture / Unknown 11/19/2024 6:01 AM EST 11/19/2024 6:37 AM EST Jaz DANIELS LAB BLOOD ORDERABLES [facility] [address] [place] [address], * MR Brain wo Contrast (11/18/2024 7:01 [...] Saundra Bucio MD IMG MRI PROCEDURES * CT Head wo Contrast (11/18/2024 2:24 PM EST) Anatomical Region Laterality Modality Head and Neck Computed Tomogra phy 11/18/2024 2:28 PM EST Impressions 11/18/2024 2:33 PM EST Evolving subdural hematoma along the right frontal convexity. ??There is no significant interval change in size. -------- FINAL REPORT -------- Dictated By: Vinayak Austin Dictated Date: 11/18/2024 14:28 ET Assigned Physician: Vinayak Austin Reviewed and Electronically Signed By: Vinayak Austin Signed Date: 11/18/2024 14:33 ET Workstation ID: [id number] Transcribed By: Self Edit Transcribed Date: 11/18/2024 14:28 ET Narrative 11/18/2024 2:33 PM EST PROCEDURE: Noncontrast head CT. HISTORY: Subdural hematoma evaluate for expanding hematoma. COMPARISON: 11/15/2024. TECHNIQUE: Noncontrast head CT with coronal and sagittal reformats. Dose length product: 2140 ??mGy-cm. FINDINGS: Brain: Mixed attenuation subdural hematoma along the right convexity. ??This is unchanged in size. ??There is interval evolution of blood products, with a larger percentage of the collection appearing hypoattenuating than on the previous exam. No mass or CT evidence of an acute infarct. ??No CT evidence of an acute large vessel infarct. ??Ventricles and sulci are age commensurate. ??Atherosclerotic calcifications of the carotid siphons. Orbits: Lens implants and calcified senile scleral plaques. Sinuses/mastoids: Small amount of debris in the posterior right ethmoid air cells. ??Small amount of layering fluid in the central sphenoid sinus. Calvarium: Hyperostosis frontalis interna. Other: The skull base soft tissues are normal. ??Degenerative changes of the temporomandibular joints. Procedure Note Vinayak Austin MD - 11/18/2024 PROCEDURE: Noncontrast head CT. HISTORY: Subdural hematoma evaluate for expanding hematoma. COMPARISON: 11/15/2024. TECHNIQUE: Noncontrast head CT with coronal and sagittal reformats. Dose length product: 2140 mGy-cm. FINDINGS: Brain: Mixed attenuation subdural hematoma along the right convexity.This is unchanged in size. There is interval evolution of blood products,with a larger percentage of the collection appearing hypoattenuating thanon the previous exam. No mass or CT evidence of an acute infarct. No CT evidence of an acutelarge vessel infarct. Ventricles and sulci are age commensurate.Atherosclerotic calcifications of the carotid siphons. Orbits: Lens implants and calcified senile scleral plaques. Sinuses/mastoids: Small amount of debris in the posterior right ethmoidair cells. Small amount of layering fluid in the central sphenoidsinus. Calvarium: Hyperostosis frontalis interna. Other: The skull base soft tissues are normal. Degenerative changes ofthe temporomandibular joints. IMPRESSION: Evolving subdural hematoma along the right frontal convexity. There is nosignificant interval change in size. -------- FINAL REPORT -------- Dictated By: Vinayak Austin Dictated Date: 11/18/2024 14:28 ET Assigned Physician: Vinayak Austin Reviewed and Electronically Signed By: Vinayak Austin Signed Date: 11/18/2024 14:33 ET Workstation ID: [id number] Transcribed By: Self Edit Transcribed Date: 11/18/2024 14:28 ET Evangelina DANIELS IMTram CT PROCEDURES * (ABNORMAL) TRANSTHORACIC ECHOCARDIOGRAM (TTE) COMPLETE [...] 76 mL CV PACS Left Atrium Minor [place] 5.3 cm CV PACS Left Atrium Major [place] 5.5 cm CV PACS LA Area Sys [...] Proximal 1.5 cm CV PACS MV Deceleration Williamson 5.0 m/s2 CV PACS E Wave Deceleration [...] Demarcus Villalobos MD CV ECHO PROCEDURES * (ABNORMAL) Complete blood count (11/18/2024 5:44 AM EST) [facility] WBC 8.2 4.8 - 10.8 K/[facility] LAB HEMETOLOGY METHOD 11/18/2024 7:01 AM EST [facility] ([facility]) [facility] LAB RBC 3.00(L) 3.80 - 4.80 M/[facility] LAB HEMETOLOGY METHOD 11/18/2024 7:01 AM [facility] Hemoglobin 9.0(L) 11.5 - 16.0 g/dL LAB HEMETOLOGY METHOD 11/18/2024 7:01 AM [facility] Hematocrit 27.8(L) 35.0 - 47.0 % LAB HEMETOLOGY METHOD 11/18/2024 7:01 AM [facility] MCV 94.2 79.0 - 98.0 FL LAB HEMETOLOGY METHOD 11/18/2024 7:01 AM [facility] MCH 30.5 27.0 - 32.0 pcg LAB HEMETOLOGY METHOD 11/18/2024 7:01 AM [facility] LAB MCHC 32.4 32.0 - 37.0 g/dL LAB HEMETOLOGY METHOD 11/18/2024 7:01 AM [facility] RDW 15.6(H) 11.0 - 15.0 % LAB HEMETOLOGY METHOD 11/18/2024 7:01 AM [facility] LAB Platelets 158 130 - 400 K/mcL LAB HEMETOLOGY METHOD 11/18/2024 7:01 AM [facility] MPV 10.6 7.0 - 11.0 FL LAB HEMETOLOGY METHOD 11/18/2024 7:01 AM [facility] NRBC 0.0 <1.0 % LAB HEMETOLOGY METHOD 11/18/2024 7:01 AM [facility] NRBC Absolute 0.00 <0.10 K/mcL LAB HEMETOLOGY METHOD 11/18/2024 7:01 AM [facility] Blood Venous blood specimen / Unknown Venipuncture / Unknown 11/18/2024 5:44 AM EST 11/18/2024 6:15 AM EST Jaz DANIELS LAB BLOOD ORDERABLES [facility] [address] [place] [address], [place] [phone] * (ABNORMAL) Basic metabolic panel (11/18/2024 5:44 AM EST) Sodium 140 133 - 145 mmol/L LAB CHEMISTRY METHOD 11/18/2024 7:00 AM [facility] Potassium 4.7 3.5 - 5.5 mmol/L LAB CHEMISTRY METHOD 11/18/2024 7:00 AM [facility] Chloride 108 96 - 110 mmol/L LAB CHEMISTRY METHOD 11/18/2024 7:00 AM [facility] CO2 25 21 - 32 mmol/L LAB CHEMISTRY METHOD 11/18/2024 7:00 AM [facility] Anion Gap 7 3 - 11 LAB CHEMISTRY METHOD 11/18/2024 7:00 AM [facility] Glucose 119(H) 70 - 100 mg/dL LAB CHEMISTRY METHOD 11/18/2024 7:00 AM [facility] BUN 27(H) 5 - 25 mg/dL LAB CHEMISTRY METHOD 11/18/2024 7:00 AM [facility] Creatinine 0.89 0.50 - 1.10 mg/dL LAB CHEMISTRY METHOD 11/18/2024 7:00 AM [facility] eGFR 67 >=60 mL/min/1. 73m2 LAB CHEMISTRY METHOD 11/18/2024 7:00 AM [facility] LAB Comment:Calculation based on the??Chronic Kidney Disease Epidemiology Collaboration (CKD-EPI) equation refit??without adjustment for race. BUN/Creatinine Ratio 30.3 LAB CHEMISTRY METHOD 11/18/2024 7:00 AM [facility] Calcium 8.4(L) 8.5 - 10.5 mg/dL LAB CHEMISTRY METHOD 11/18/2024 7:00 AM [facility] Blood Venous blood specimen / Unknown Venipuncture / Unknown 11/18/2024 5:44 AM EST 11/18/2024 6:15 AM EST Jaz DANIELS LAB BLOOD ORDERABLES [facility] [place] [facility] [address] [place] [address], [place] [phone] * XR Pelvis 1-2 Views (11/17/2024 4:41 PM EST) Anatomical Region Laterality Modality Body, Pelvis Radiographic Jalyn ging 11/17/2024 4:53 PM EST Impressions 11/17/2024 4:54 PM EST Impression: Postop left femoral endoprosthesis placement, with prosthesis appearing satisfactorily positioned. Teleyehuda DANIELS ([id number]) -------- FINAL REPORT -------- Dictated By: Muna Roblero Dictated Date: 11/17/2024 16:53 ET Assigned Physician: Muna Roblero Reviewed and Electronically Signed By: Muna Roblero Signed Date: 11/17/2024 16:54 ET Workstation ID: [id number] Transcribed By: Self Edit Transcribed Date: 11/17/2024 [...] femoral endoprosthesis placement, with prosthesis appearingsatisfactorily positioned. Teleyehuda DANIELS ([id number]) -------- FINAL REPORT -------- Dictated By: Muna Roblero Dictated Date: 11/17/2024 16:53 ET Assigned Physician: Muna Roblero Reviewed and Electronically Signed By: Muna Roblero Signed Date: 11/17/2024 16:54 ET Workstation ID: [id number] Transcribed By: Self Edit Transcribed Date: 11/17/2024 16:53 ET Jaz DANIELS IMG XR PROCEDURES * XR Hip 1 [...] Signed Date: 11/18/2024 06:58 ET Workstation ID: [id number] Transcribed By: Self Edit Transcribed Date: 11/18/2024 [...] Signed Date: 11/18/2024 06:58 ET Workstation ID: [id number] Transcribed By: Self Edit Transcribed Date: 11/18/2024 06:55 ET Elva Hester MD IMG XR PROCEDURES * Tissue exam (11/17/2024 1:17 PM EST) Final Diagnosis Bone, left femoral head: -CONSISTENT WITH FRACTURE 11/19/2024 10:45 AM [facility] Gross Description A. Bone, left [...] with some hemorrhage around the margin. A human resources hr representative section is submitted in one cassette following decalcification, one piece CHECO 11/19/2024 10:45 AM [facility] Disclaimer Unless otherwise specified, all tissue is 10% NB formalin fixed and paraffin embedded. 11/19/2024 10:45 AM [facility] Bone Specimen from bone / Unknown 11/17/2024 1:17 PM EST 11/17/2024 3:55 PM EST Elva Hester MD LAB PATHOLOGY ORD ERABLES [facility] [address] [place] [address], * (ABNORMAL) CBC auto differential (11/17/2024 6:43 AM EST) WBC 7.4 4.8 - 10.8 K/mcL LAB HEMETOLOGY METHOD 11/17/2024 7:26 AM [facility] RBC 3.40(L) 3.80 - 4.80 M/mcL LAB HEMETOLOGY METHOD 11/17/2024 7:26 AM [facility] Hemoglobin 10.6(L) 11.5 - 16.0 g/dL LAB HEMETOLOGY METHOD 11/17/2024 7:26 AM [facility] Hematocrit 32.3(L) 35.0 - 47.0 % LAB HEMETOLOGY METHOD 11/17/2024 7:26 AM [facility] MCV 94.2 79.0 - 98.0 FL LAB HEMETOLOGY METHOD 11/17/2024 7:26 AM [facility] MCH 30.9 27.0 - 32.0 pcg LAB HEMETOLOGY METHOD 11/17/2024 7:26 AM [facility] MCHC 32.8 32.0 - 37.0 g/dL LAB HEMETOLOGY METHOD 11/17/2024 7:26 AM [facility] RDW 15.3(H) 11.0 - 15.0 % LAB HEMETOLOGY METHOD 11/17/2024 7:26 AM [facility] Platelets 150 130 - 400 K/mcL LAB HEMETOLOGY METHOD 11/17/2024 7:26 AM [facility] MPV 10.6 7.0 - 11.0 FL LAB HEMETOLOGY METHOD 11/17/2024 7:26 AM [facility] NRBC 0.0 <1.0 % LAB HEMETOLOGY METHOD 11/17/2024 7:26 AM [facility] NRBC Absolute 0.00 <0.10 K/mcL LAB HEMETOLOGY METHOD 11/17/2024 7:26 AM [facility] Neutrophils Relative 73.8 % LAB HEMETOLOGY METHOD 11/17/2024 7:26 AM [facility] Lymphocytes Relative 11.4 % LAB HEMETOLOGY METHOD 11/17/2024 7:26 AM [facility] Monocytes Relative 9.7 % LAB HEMETOLOGY METHOD 11/17/2024 7:26 AM [facility] Eosinophils Relative 4.3 % LAB HEMETOLOGY METHOD 11/17/2024 7:26 AM [facility] Basophils Relative 0.3 % LAB HEMETOLOGY METHOD 11/17/2024 7:26 AM [facility] Immature Granulocytes Relative 0.5 % LAB HEMETOLOGY METHOD 11/17/2024 7:26 AM [facility] Neutrophils Absolute 5.48 1.50 - 7.00 K/mcL LAB HEMETOLOGY METHOD 11/17/2024 7:26 AM [facility] Lymphocytes Absolute 0.85(L) 1.00 - 5.00 K/mcL LAB HEMETOLOGY METHOD 11/17/2024 7:26 AM [facility] Monocytes Absolute 0.72 0.20 - 1.00 K/mcL LAB HEMETOLOGY METHOD 11/17/2024 7:26 AM [facility] Eosinophils Absolute 0.32 0.00 - 0.50 K/mcL LAB HEMETOLOGY METHOD 11/17/2024 7:26 AM EST [facility] Basophils Absolute 0.02 0.00 - 0.20 K/mcL LAB HEMETOLOGY METHOD 11/17/2024 7:26 AM EST [facility] Immature Granulocytes Absolute 0.04(H) 0.00 - 0.03 K/mcL LAB HEMETOLOGY METHOD 11/17/2024 7:26 AM [facility] Blood Venous blood specimen / Unknown Venipuncture / Unknown 11/17/2024 6:43 AM EST 11/17/2024 7:07 AM EST Bhavin Garcia MD LAB BLOOD ORDERABLES [facility] [address] [place] [address], * (ABNORMAL) Basic metabolic panel (11/17/2024 6:43 AM EST) Sodium 139 133 - 145 mmol/L LAB CHEMISTRY METHOD 11/17/2024 7:49 AM [facility] Potassium 3.3(L) 3.5 - 5.5 mmol/L LAB CHEMISTRY METHOD 11/17/2024 7:49 AM [facility] Chloride 107 96 - 110 mmol/L LAB CHEMISTRY METHOD 11/17/2024 7:49 AM [facility] CO2 27 21 - 32 mmol/L LAB CHEMISTRY METHOD 11/17/2024 7:49 AM [facility] Anion Gap 5 3 - 11 LAB CHEMISTRY METHOD 11/17/2024 7:49 AM [facility] Glucose 100 70 - 100 mg/dL LAB CHEMISTRY METHOD 11/17/2024 7:49 AM [facility] BUN 16 5 - 25 mg/dL LAB CHEMISTRY METHOD 11/17/2024 7:49 AM [facility] Creatinine 0.63 0.50 - 1.10 mg/dL LAB CHEMISTRY METHOD 11/17/2024 7:49 AM EST [facility] eGFR 91 >=60 mL/min/1. 73m2 LAB CHEMISTRY METHOD 11/17/2024 7:49 AM EST [facility] Comment:Calculation based on the??Chronic Kidney Disease Epidemiology Collaboration (CKD-EPI) equation refit??without adjustment for race. BUN/Creatinine Ratio 25.4 LAB CHEMISTRY METHOD 11/17/2024 7:49 AM EST [facility] Calcium 8.5 8.5 - 10.5 mg/dL LAB CHEMISTRY METHOD 11/17/2024 7:49 AM EST [facility] Blood Venous blood specimen / Unknown Venipuncture / Unknown 11/17/2024 6:43 AM EST 11/17/2024 7:12 AM EST Bhavin Garcia MD LAB BLOOD ORDERABLES Performing Organization Address City/State/[facility] Co de Phone Number [facility] [address] [place] [address], * CT Angio Chest wo and/or w [...] Signed Date: 11/16/2024 10:45 ET Workstation ID: [id number] Transcribed By: Self Edit Transcribed Date: 11/16/2024 10:26 ET Narrative 11/16/2024 10:45 AM EST EXAMINATION: CTA chest with contrast. CLINICAL INDICATION: SOB. Hip fracture. Rule out PE. COMPARISON: Chest x-ray 11/16/2024. TECHNIQUE: 2.5 mm thin axial and reformatted 3 mm thin sagittal and coronal images of chest were obtained following IV 90 mL Isovue-370. Scanner: Annai Systemspeed 64 slice VCT Dose reduction technique: ASIR [...] were obtained following IV 90 mL Isovue-370.Scanner: Annai Systemspeed 64 slice VCT Dose reduction technique: ASIR [...] Signed Date: 11/16/2024 10:45 ET Workstation ID: [id number] Transcribed By: Self Edit Transcribed Date: 11/16/2024 10:26 ET Rochelle DANIELS IM CT PROCEDURES * Respiratory virus panel molecular study (11/16/2024 5:44 AM EST) Adenovirus Detection by PCR Not Detected Not Detected LAB MICROBIOLOGY METHOD 11/16/2024 7:20 AM [facility] Influenza A PCR Not Detected Not Detected LAB MICROBIOLOGY METHOD 11/16/2024 7:20 AM [facility] Influenza B PCR Not Detected Not Detected LAB MICROBIOLOGY METHOD 11/16/2024 7:20 AM [facility] Coronavirus 229E Not Detected Not Detected LAB MICROBIOLOGY METHOD 11/16/2024 7:20 AM [facility] Coronavirus HKU1 Not Detected Not Detected LAB MICROBIOLOGY METHOD 11/16/2024 7:20 AM [facility] Coronavirus OC43 Not Detected Not Detected LAB MICROBIOLOGY METHOD 11/16/2024 7:20 AM [facility] Coronavirus NL63 Not Detected Not Detected LAB MICROBIOLOGY METHOD 11/16/2024 7:20 AM [facility] Parainfluenza Virus 1 Not Detected Not Detected LAB MICROBIOLOGY METHOD 11/16/2024 7:20 AM [facility] Parainfluenza Virus 2 Not Detected Not Detected LAB MICROBIOLOGY METHOD 11/16/2024 7:20 AM [facility] Parainfluenza Virus 3 Not Detected Not Detected LAB MICROBIOLOGY METHOD 11/16/2024 7:20 AM [facility] Parainfluenza Virus 4 Not Detected Not Detected LAB MICROBIOLOGY METHOD 11/16/2024 7:20 AM [facility] RSV PCR Not Detected Not Detected LAB MICROBIOLOGY METHOD 11/16/2024 7:20 AM [facility] Human Metapneumovirus A and B Not Detected Not Detected LAB MICROBIOLOGY METHOD 11/16/2024 7:20 AM [facility] Rhinovirus/Entero virus Not Detected Not Detected LAB MICROBIOLOGY METHOD 11/16/2024 7:20 AM [facility] Bordetella pertussis Not Detected Not Detected LAB MICROBIOLOGY METHOD 11/16/2024 7:20 AM [facility] Bordetella parapertussis Not Detected Not Detected LAB MICROBIOLOGY METHOD 11/16/2024 7:20 AM [facility] Mycoplasma pneumo by PCR Not Detected Not Detected LAB MICROBIOLOGY METHOD 11/16/2024 7:20 AM [facility] Chlamydia pneumoniae Not Detected Not Detected LAB MICROBIOLOGY METHOD 11/16/2024 7:20 AM [facility] SARS COV-2 Not Detected Not Detected LAB MICROBIOLOGY METHOD 11/16/2024 7:20 AM [facility] Swab Structure of right anterior naris / Unknown Non-blood Collection / Unknown 11/16/2024 5:44 AM EST 11/16/2024 6:27 AM [facility] - 11/16/2024 7:20 AM EST Testing was performed using the M-Audioe Respiratory Pathogen PCR Assay. All results must [...] DANIELS LAB MICROBIOLOGY - G ENERAL ORDERABLES [facility] [address] [place] [address], * (ABNORMAL) Arterial blood gas (11/16/2024 5:42 AM EST) pH, Arterial 7.47(H) 7.35 - 7.45 pH 11/16/2024 6:05 AM [facility] pCO2, Arterial 32(L) 35 - 45 mmHg 11/16/2024 6:05 AM [facility] pO2, Arterial 56(LL) 80 - 100 mmHg 11/16/2024 6:05 AM [facility] HCO3, Arterial 24.8 22.0 - 26.0 mmol/L 11/16/2024 6:05 AM [facility] O2 Sat, Arterial 89.9(L) 95.0 - 98.0 % 11/16/2024 6:05 AM [facility] Base Excess, Arterial 0.1 -2.0 - 2.0 mmol/L 11/16/2024 6:05 AM [facility] Al Test Pass Pass, Unresponsi ve, Line 11/16/2024 6:05 AM [facility] FIO2 21.00 11/16/2024 6:05 AM [facility] Blood Arterial blood specimen / Unknown Arterial Puncture / Unknown 11/16/2024 5:42 AM EST 11/16/2024 5:47 AM EST Rochelle DANIELS LAB BLOOD ORDERABLES [facility] [address] [place] [address], [place] [phone] * XR Chest 1 View (11/16/2024 4:48 AM EST) Anatomical Region Laterality Modality Body Radiographic Jalyn ging 11/16/2024 7:09 AM EST Impressions 11/16/2024 7:11 AM EST Suspect pulmonary vascular congestion. -------- FINAL REPORT -------- Dictated By: Alli De Anda Dictated Date: 11/16/2024 07:09 ET Assigned Physician: Alli De Anda Reviewed and Electronically Signed By: Alli De Anda Signed Date: 11/16/2024 07:11 ET Workstation ID: [id number] Transcribed By: Self Edit Transcribed Date: 11/16/2024 [...] Signed Date: 11/16/2024 07:11 ET Workstation ID: [id number] Transcribed By: Self Edit Transcribed Date: 11/16/2024 07:09 ET Rochelle DANIELS IMG XR PROCEDURES * CT Head wo Contrast (11/15/2024 8:03 AM EST) Anatomical Region Laterality Modality Head and Neck Computed Tomogra phy 11/15/2024 8:25 AM EST Impressions 11/15/2024 8:30 AM EST Stable right frontoparietal subdural acute hematoma. There is mild cortical sulci effacement but no midline shift seen. No calvarial fracture. Minimal mucoperiosteal thickening right posterior ethmoid and sphenoid sinuses. -------- FINAL REPORT -------- Dictated By: Alli De Anda Dictated Date: 11/15/2024 08:25 ET Assigned Physician: Alli De Anda Reviewed and Electronically Signed By: Alli De Anda Signed Date: 11/15/2024 08:30 ET Workstation ID: [id number] Transcribed By: Self Edit Transcribed Date: 11/15/2024 08:25 ET Narrative 11/15/2024 8:30 AM EST Examination: CT brain without contrast. CLINICAL INDICATION: Follow-up subdural hematoma. COMPARISON: CT brain 11/14/2024 at 2:10 PM. TECHNIQUE: Routine 2.5 mm thin axial and reformatted 3 mm thin sagittal and coronal images of brain were obtained. Scanner: Annai SystemspePowervation 64 slice VCT Dose reduction technique: ASIR (Adaptive statistical iterative reconstruction) and/or AEC (automated exposure control) Dose: total exam DLP 900 mGy/cm. FINDINGS: Again visualized is a right frontoparietal subdural hematoma with a maximum thickness of [address] image 32/2. It is the same size as noted on the previous CT exam. There is no midline shift. The greater white matter differentiation is maintained. Some effacement of right frontal parietal cortical sulci seen. Bone windows reveal no calvarial abnormality or fracture. There is mildly mucoperiosteal thickening right posterior ethmoid and sphenoid sinuses. Procedure Note Alli De Anda MD - 11/15/2024 Examination: CT brain without contrast. CLINICAL INDICATION: Follow-up subdural hematoma. COMPARISON: CT brain 11/14/2024 at 2:10 PM. TECHNIQUE: Routine 2.5 mm thin axial and reformatted 3 mm thin sagittaland coronal images of brain were obtained. Scanner: GE LightSpeed 64 sliceVCT Dose reduction technique: ASIR (Adaptive statistical iterativereconstruction) and/or AEC (automated exposure control) Dose: total exam DLP 900 mGy/cm. FINDINGS: Again visualized is a right frontoparietal subdural hematomawith a maximum thickness of [address] image 32/2. It is the samesize as noted on the previous CT exam. There is no midline shift. Thegreater white matter differentiation is maintained. Some effacement ofright frontal parietal cortical sulci seen. Bone windows reveal nocalvarial abnormality or fracture. There is mildly mucoperiostealthickening right posterior ethmoid and sphenoid sinuses. IMPRESSION: Stable right frontoparietal subdural acute hematoma. There is mildcortical sulci effacement but no midline shift seen. No calvarialfracture. Minimal mucoperiosteal thickening right posterior ethmoid and sphenoidsinuses. -------- FINAL REPORT -------- Dictated By: Alli De Anda Dictated Date: 11/15/2024 08:25 ET Assigned Physician: Alli De Anda Reviewed and Electronically Signed By: Alli De Anda Signed Date: 11/15/2024 08:30 ET Workstation ID: [id number] Transcribed By: Self Edit Transcribed Date: 11/15/2024 08:25 ET Hardik DANIELS IMG CT PROCEDURES * Vitamin B12 (11/15/2024 6:27 AM EST) Vitamin B-12 265 250 - 900 pcg/mL LAB CHEMISTRY METHOD 11/15/2024 6:00 PM EST [facility] Blood Venous blood specimen / Unknown Venipuncture / Unknown 11/15/2024 6:27 AM EST 11/15/2024 7:04 AM EST Bhavin Garcia MD LAB BLOOD ORDERABLES [facility] [address] [place] [address], * (ABNORMAL) CBC auto differential (11/15/2024 6:27 AM EST) [facility] WBC 8.8 4.8 - 10.8 K/mcL LAB HEMETOLOGY METHOD 11/15/2024 7:22 AM [facility] RBC 3.60(L) 3.80 - 4.80 M/mcL LAB HEMETOLOGY METHOD 11/15/2024 7:22 AM [facility] Hemoglobin 11.0(L) 11.5 - 16.0 g/dL LAB HEMETOLOGY METHOD 11/15/2024 7:22 AM [facility] Hematocrit 34.2(L) 35.0 - 47.0 % LAB HEMETOLOGY METHOD 11/15/2024 7:22 AM [facility] MCV 95.3 79.0 - 98.0 FL LAB HEMETOLOGY METHOD 11/15/2024 7:22 AM [facility] MCH 30.6 27.0 - 32.0 pcg LAB HEMETOLOGY METHOD 11/15/2024 7:22 AM [facility] MCHC 32.2 32.0 - 37.0 g/dL LAB HEMETOLOGY METHOD 11/15/2024 7:22 AM [facility] RDW 15.2(H) 11.0 - 15.0 % LAB HEMETOLOGY METHOD 11/15/2024 7:22 AM [facility] Platelets 162 130 - 400 K/mcL LAB HEMETOLOGY METHOD 11/15/2024 7:22 AM [facility] MPV 10.8 7.0 - 11.0 FL LAB HEMETOLOGY METHOD 11/15/2024 7:22 AM [facility] NRBC 0.0 <1.0 % LAB HEMETOLOGY METHOD 11/15/2024 7:22 AM [facility] NRBC Absolute 0.00 <0.10 K/mcL LAB HEMETOLOGY METHOD 11/15/2024 7:22 AM [facility] Neutrophils Relative 83.6 % LAB HEMETOLOGY METHOD 11/15/2024 7:22 AM [facility] Lymphocytes Relative 6.8 % LAB HEMETOLOGY METHOD 11/15/2024 7:22 AM [facility] Monocytes Relative 5.8 % LAB HEMETOLOGY METHOD 11/15/2024 7:22 AM [facility] Eosinophils Relative 3.3 % LAB HEMETOLOGY METHOD 11/15/2024 7:22 AM [facility] Basophils Relative 0.2 % LAB HEMETOLOGY METHOD 11/15/2024 7:22 AM [facility] Immature Granulocytes Relative 0.3 % LAB HEMETOLOGY METHOD 11/15/2024 7:22 AM [facility] Neutrophils Absolute 7.33(H) 1.50 - 7.00 K/mcL LAB HEMETOLOGY METHOD 11/15/2024 7:22 AM [facility] Lymphocytes Absolute 0.60(L) 1.00 - 5.00 K/mcL LAB HEMETOLOGY METHOD 11/15/2024 7:22 AM [facility] Monocytes Absolute 0.51 0.20 - 1.00 K/mcL LAB HEMETOLOGY METHOD 11/15/2024 7:22 AM [facility] Eosinophils Absolute 0.29 0.00 - 0.50 K/mcL LAB HEMETOLOGY METHOD 11/15/2024 7:22 AM [facility] Basophils Absolute 0.02 0.00 - 0.20 K/mcL LAB HEMETOLOGY METHOD 11/15/2024 7:22 AM [facility] Immature Granulocytes Absolute 0.03 0.00 - 0.03 K/mcL LAB HEMETOLOGY METHOD 11/15/2024 7:22 AM [facility] Blood Venous blood specimen / Unknown Venipuncture / Unknown 11/15/2024 6:27 AM EST 11/15/2024 7:05 AM EST Demarcus Villalobos MD LAB BLOOD ORDERABLES Performing Organization Address [facility]/ZIP Co de Phone Number [facility] [address] [place] [address], [place] [phone] * Magnesium (11/15/2024 6:27 AM EST) [facility] Magnesium 2.0 1.9 - 2.6 mg/dL LAB CHEMISTRY METHOD 11/15/2024 8:39 AM EST [facility] Blood Venous blood specimen / Unknown Venipuncture / Unknown 11/15/2024 6:27 AM EST 11/15/2024 7:04 AM EST Demarcus Villalobos MD LAB BLOOD ORDERABLES Performing Organization Address [facility]/ZIP Co de Phone Number [facility] [address] [place] [address], [place] [phone] * (ABNORMAL) Basic metabolic panel (11/15/2024 6:27 AM EST) [facility] Sodium 139 133 - 145 mmol/L LAB CHEMISTRY METHOD 11/15/2024 8:43 AM [facility] Potassium 3.6 3.5 - 5.5 mmol/L LAB CHEMISTRY METHOD 11/15/2024 8:43 AM [facility] Chloride 108 96 - 110 mmol/L LAB CHEMISTRY METHOD 11/15/2024 8:43 AM [facility] CO2 24 21 - 32 mmol/L LAB CHEMISTRY METHOD 11/15/2024 8:43 AM [facility] Anion Gap 7 3 - 11 LAB CHEMISTRY METHOD 11/15/2024 8:43 AM [facility] Glucose 114(H) 70 - 100 mg/dL LAB CHEMISTRY METHOD 11/15/2024 8:43 AM [facility] BUN 22 5 - 25 mg/dL LAB CHEMISTRY METHOD 11/15/2024 8:43 AM [facility] Creatinine 0.77 0.50 - 1.10 mg/dL LAB CHEMISTRY METHOD 11/15/2024 8:43 AM [facility] eGFR 80 >=60 mL/min/1. 73m2 LAB CHEMISTRY METHOD 11/15/2024 8:43 AM [facility] Comment:Calculation based on the??Chronic Kidney Disease Epidemiology Collaboration (CKD-EPI) equation refit??without adjustment for race. BUN/Creatinine Ratio 28.6 LAB CHEMISTRY METHOD 11/15/2024 8:43 AM [facility] Calcium 8.5 8.5 - 10.5 mg/dL LAB CHEMISTRY METHOD 11/15/2024 8:43 AM [facility] Blood Venous blood specimen / Unknown Venipuncture / Unknown 11/15/2024 6:27 AM EST 11/15/2024 7:04 AM EST Demarcus Villalobos MD LAB BLOOD ORDERABLES [facility] [address] [place] [address], [place] [phone] * Activated partial thromboplastin time (11/14/2024 8:37 PM EST) aPTT 32.2 24.1 - 39.3 sec LAB COAGULATION METHOD 11/14/2024 9:02 PM EST [facility] Blood Venous blood specimen / Unknown Venipuncture / Unknown 11/14/2024 8:37 PM EST 11/14/2024 8:49 PM EST Hardik DANIELS LAB BLOOD ORDERABLES [facility] [address] [place] [address], [place] [phone] * Prothrombin time with INR (11/14/2024 8:37 PM EST) Protime 12.0 10.6 - 13.9 sec LAB COAGULATION METHOD 11/14/2024 9:02 PM EST [facility] INR 1.0 LAB COAGULATION METHOD 11/14/2024 9:02 PM EST [facility] Blood Venous blood specimen / Unknown Venipuncture / Unknown 11/14/2024 8:37 PM EST 11/14/2024 8:49 PM EST Hardik DANIELS LAB BLOOD ORDERABLES [facility] [address] [place] [address], * CT Head wo Contrast (11/14/2024 2:27 PM EST) Anatomical Region Laterality Modality Head and Neck Computed Tomogra phy 11/14/2024 2:41 PM EST Impressions 11/14/2024 2:51 PM EST Unchanged right cerebral convexity subdural hematoma without significant midline shift. -------- FINAL REPORT -------- Dictated By: KYLER BARRERA Dictated Date: 11/14/2024 14:41 ET Assigned Physician: KYLER BARRERA Reviewed and Electronically Signed By: KYLER BARRERA Signed Date: 11/14/2024 14:51 ET Workstation ID: [id number] Transcribed By: Self Edit Transcribed Date: 11/14/2024 14:41 ET Narrative 11/14/2024 2:51 PM EST PROCEDURE: HEAD CT INDICATION: Mental status changes TECHNIQUE: CT of the head without intravenous contrast. Multiplanar reformats. The examination was performed utilizing dose reduction techniques. Total DLP 2230 COMPARISON: ??11/14/2024 FINDINGS: ?? Unchanged mixed density right cerebral convexity subdural collection measuring up to 8 mm in maximal coronal dimension. ??Local mass effect upon the right cerebrum is unchanged. ??No significant midline shift. No acute territorial infarct, new hemorrhage, or progressive mass effect. Mild scattered periventricular and subcortical white matter hypodensities are most likely related to chronic small vessel ischemic change. Ventricles are stable in size. ??No hydrocephalus. Extracranial structures are unchanged. Procedure Note Kyler Barrera MD - 11/14/2024 PROCEDURE: HEAD CT INDICATION: Mental status changes TECHNIQUE: CT of the head without intravenous contrast. Multiplanarreformats. The examination was performed utilizing dose reductiontechniques. Total DLP 2230 COMPARISON: 11/14/2024 FINDINGS: Unchanged mixed density right cerebral convexity subdural collectionmeasuring up to 8 mm in maximal coronal dimension. Local mass effect uponthe right cerebrum is unchanged. No significant midline shift. No acute territorial infarct, new hemorrhage, or progressive masseffect. Mild scattered periventricular and subcortical white matter hypodensitiesare most likely related to chronic small vessel ischemic change. Ventricles are stable in size. No hydrocephalus. Extracranial structures are unchanged. IMPRESSION: Unchanged right cerebral convexity subdural hematoma without significantmidline shift. -------- FINAL REPORT -------- Dictated By: KYLER BARRERA Dictated Date: 11/14/2024 14:41 ET Assigned Physician: KYLER BARRERA Reviewed and Electronically Signed By: KYLER BARRERA Signed Date: 11/14/2024 14:51 ET Workstation ID: [id number] Transcribed By: Self Edit Transcribed Date: 11/14/2024 14:41 ET Aleida DANIELS [facility] [place] PROCEDURES * (ABNORMAL) Culture urine (11/14/2024 1:58 PM EST) Culture, Urine >100,000 CFU/mL Escherichia coli ESBL(A) CLINT 11/17/2024 11:51 AM EST [facility] ([facility]) [facility] Comment:THIS ORGANISM IS POS ITIVE FOR [...] DANIELS LAB MICROBIOLOGY - G ENERAL ORDERABLES Performing Organization Address City/[facility]/ZIP Co de Phone Number [facility] [address] [place] [address], [place] [phone] * Estrada urine culture tube (11/14/2024 1:58 PM EST) Extra Tube Hold for add-ons. 11/14/2024 4:02 PM EST [facility] Comment:Auto resulted. Urine Urinary bladder structure / Unknown Non-blood Collection / Unknown 11/14/2024 1:58 PM EST 11/14/2024 2:20 PM EST Aleida DANIELS LAB URINE ORDERABLES Performing Organization Address City/[facility]/ZIP Co de Phone Number [facility] [address] [place] [address], [place] [phone] * (ABNORMAL) Urinalysis with reflex microscopic and culture (11/14/2024 1:58 PM EST) Specific [place] Urine 1.021 1.003 - 1.030 LAB URINALYSIS - AUTOMATED METHOD 11/14/2024 2:32 PM [facility] pH, Urine 6.0 5.0 - 8.0 pH LAB URINALYSIS - AUTOMATED METHOD 11/14/2024 2:32 PM [facility] Leukocytes, Urine Small(A) Negative LAB URINALYSIS - AUTOMATED METHOD 11/14/2024 2:32 PM [facility] Nitrite, Urine Negative Negative LAB URINALYSIS - AUTOMATED METHOD 11/14/2024 2:32 PM [facility] Protein, Urine 30(A) <=Trace mg/dL LAB URINALYSIS - AUTOMATED METHOD 11/14/2024 2:32 PM [facility] Glucose, Urine Negative Negative mg/dL LAB URINALYSIS - AUTOMATED METHOD 11/14/2024 2:32 PM [facility] Ketones, Urine Trace(A) Negative mg/dL LAB URINALYSIS - AUTOMATED METHOD 11/14/2024 2:32 PM [facility] Urobilinogen , Urine 1.0 0.2 - 1.0 mg/dL LAB URINALYSIS - AUTOMATED METHOD 11/14/2024 2:32 PM [facility] Bilirubin, Urine Negative Negative LAB URINALYSIS - AUTOMATED METHOD 11/14/2024 2:32 PM [facility] Blood, Urine Moderate(A) Negative LAB URINALYSIS - AUTOMATED METHOD 11/14/2024 2:32 PM [facility] RBC, Urine 9.2(H) 0 - 4 /HPF LAB URINALYSIS - AUTOMATED METHOD 11/14/2024 2:32 PM [facility] WBC, Urine 28.1(H) 0 - 4 /HPF LAB URINALYSIS - AUTOMATED METHOD 11/14/2024 2:32 PM [facility] Squamous Epithelial, Urine 37 0 - 60 /LPF LAB URINALYSIS - AUTOMATED METHOD 11/14/2024 2:32 PM EST [facility] Bacteria, Urine Many(A) Negative /HPF LAB URINALYSIS - AUTOMATED METHOD 11/14/2024 2:32 PM EST [facility] Hyaline Casts, Urine 0.8 0 - 3 /LPF LAB URINALYSIS - AUTOMATED METHOD 11/14/2024 2:32 PM EST [facility] Urine Urinary bladder structure / Unknown Non-blood Collection / Unknown 11/14/2024 1:58 PM EST 11/14/2024 2:20 PM EST Aleida DANIELS LAB URINE ORDERABLES Performing Organization Address City/State/[facility] Co de Phone Number [facility] [address] [place] [address], * CT Lower Extremity wo Contrast Left (11/14/2024 12:18 PM EST) Anatomical Region Laterality Modality Lower Extremities Left Computed Tomog ana laura 11/14/2024 12:2 6 PM EST Impressions 11/14/2024 12:30 PM EST Impacted and angulated left femoral neck fracture -------- FINAL REPORT -------- Dictated By: KYLER BARRERA Dictated Date: 11/14/2024 12:26 ET Assigned Physician: KYLER BARRERA Reviewed and Electronically Signed By: KYLER BARRERA Signed Date: 11/14/2024 12:30 ET Workstation ID: [id number] Transcribed By: Self Edit Transcribed Date: 11/14/2024 [...] No mass or fluid collection. Procedure Note Kyler Barrera MD - 11/14/2024 PROCEDURE: Left lower [...] fracture -------- FINAL REPORT -------- Dictated By: KYLER BARRERA Dictated Date: 11/14/2024 12:26 ET Assigned Physician: KYLER BARRERA Reviewed and Electronically Signed By: KYLER BARRERA Signed Date: 11/14/2024 12:30 ET Workstation ID: [id number] Transcribed By: Self Edit Transcribed Date: 11/14/2024 12:26 ET Aleida DANIELS IMG CT PROCEDURES * Troponin I high sensitivity (11/14/2024 11:25 AM EST) High Sensitivity Troponin I 10 <=54 ng/L LAB CHEMISTRY METHOD 11/14/2024 12:49 PM EST [facility] Blood Venous blood specimen / Unknown Venipuncture / Unknown 11/14/2024 11:25 AM EST 11/14/2024 11:56 AM EST Narrative [facility] - 11/14/2024 12:49 PM EST High levels of biotin in samples may falsely decrease hsTroponin values. ??Use caution when interpreting hsTroponin results in patients taking biotin who exhibit renal impairment (eGFR <60) or in patients taking more than 20 mg/day of biotin. Aleida DANIELS LAB BLOOD ORDERABLES [facility] ([facility]) [facility] [address] [place] [address], * XR Chest 1 View (11/14/2024 11:03 AM EST) Anatomical Region Laterality Modality Body Radiographic Jalyn ging 11/14/2024 11:0 8 AM EST Impressions 11/14/2024 11:08 AM EST No acute findings. -------- FINAL REPORT -------- Dictated By: Vinayak Austin Dictated Date: 11/14/2024 11:08 ET Assigned Physician: Vinayak Austin Reviewed and Electronically Signed By: Vinayak Austin Signed Date: 11/14/2024 11:08 ET Workstation ID: [id number] Transcribed By: Self Edit Transcribed Date: 11/14/2024 11:08 ET Narrative 11/14/2024 11:08 AM EST Procedure: AP chest radiograph. HISTORY: weakness, fall. COMPARISON: None. FINDINGS: Linear markings at the bases suggesting mild subsegmental atelectasis. ??Pleural spaces, pulmonary vasculature, and heart size are normal. ??Atherosclerotic calcifications of the aorta. ??Mild degenerative changes of the spine. Procedure Note Vinayak Austin MD - 11/14/2024 Procedure: AP chest radiograph. HISTORY: weakness, fall. COMPARISON: None. FINDINGS: Linear markings at the bases suggesting mild subsegmental atelectasis.Pleural spaces, pulmonary vasculature, and heart size are normal.Atherosclerotic calcifications of the aorta. Mild degenerative changes ofthe spine. IMPRESSION: No acute findings. -------- FINAL REPORT -------- Dictated By: Vinayak Austin Dictated Date: 11/14/2024 11:08 ET Assigned Physician: Vinayak Asutin Reviewed and Electronically Signed By: Vinayak Austin Signed Date: 11/14/2024 11:08 ET Workstation ID: [id number] Transcribed By: Self Edit Transcribed Date: 11/14/2024 11:08 ET Aleida DANIELS IMTram XR PROCEDURES * XR Hip 2-3 Views Left (11/14/2024 [...] Signed Date: 11/14/2024 11:08 ET Workstation ID: [id number] Transcribed By: Self Edit Transcribed Date: 11/14/2024 [...] Signed Date: 11/14/2024 11:08 ET Workstation ID: [id number] Transcribed By: Self Edit Transcribed Date: 11/14/2024 11:05 ET Aleida DANIELS IMTram XR PROCEDURES * CT Head wo Contrast (11/14/2024 10:23 AM EST) Anatomical Region Laterality Modality Head and Neck Computed Tomogra phy 11/14/2024 10:3 0 AM EST Impressions 11/14/2024 10:36 AM EST 8 mm subdural hematoma along the right convexity. -------- FINAL REPORT -------- Dictated By: Vinayak Austin Dictated Date: 11/14/2024 10:30 ET Assigned Physician: Vinayak Austin Reviewed and Electronically Signed By: Vinayak Austin Signed Date: 11/14/2024 10:36 ET Workstation ID: [id number] Transcribed By: Self Edit Transcribed Date: 11/14/2024 10:30 ET Narrative 11/14/2024 10:36 AM EST PROCEDURE: Noncontrast head CT. HISTORY: trauma. COMPARISON: None. TECHNIQUE: Noncontrast head CT with coronal and sagittal reformats. Dose length product: ??1070 mGy-cm. FINDINGS: Brain: There is a subdural hematoma along the right convexity which measures up to 8 mm in thickness. ??The hematomas of mixed attenuation but is predominantly hyperattenuating suggestive of acute blood products. ??Minimal mass effect. ??No midline shift. ??No CT evidence of an acute infarct. ??No mass. ??Atherosclerotic calcifications of the carotid siphons. ??Small dystrophic calcifications of the globus pallidus bilaterally. ??No CT evidence of an acute large vessel infarct. ??Ventricles and sulci are age commensurate. Orbits: Normal. Sinuses/mastoids: Small amount of layering fluid in the right sphenoid sinus. ??Small amount of bubbly debris in one of the posterior right ethmoid air cells. Calvarium: Mild hyperostosis frontalis interna. Other: Partially calcified oval 13 mm scalp mass at the right parietal vertex, likely an epidermal inclusion cyst. ??Degenerative changes of the temporomandibular joints, right greater than left. Procedure Note Vinayak Austin MD - 11/14/2024 PROCEDURE: Noncontrast head CT. HISTORY: trauma. COMPARISON: None. TECHNIQUE: Noncontrast head CT with coronal and sagittal reformats. Dose length product: 1070 mGy-cm. FINDINGS: Brain: There is a subdural hematoma along the right convexity whichmeasures up to 8 mm in thickness. The hematomas of mixed attenuation butis predominantly hyperattenuating suggestive of acute blood products.Minimal mass effect. No midline shift. No CT evidence of an acuteinfarct. No mass. Atherosclerotic calcifications of the carotid siphons.Small dystrophic calcifications of the globus pallidus bilaterally. NoCT evidence of an acute large vessel infarct. Ventricles and sulci areage commensurate. Orbits: Normal. Sinuses/mastoids: Small amount of layering fluid in the right sphenoidsinus. Small amount of bubbly debris in one of the posterior rightethmoid air cells. Calvarium: Mild hyperostosis frontalis interna. Other: Partially calcified oval 13 mm scalp mass at the right parietalvertex, likely an epidermal inclusion cyst. Degenerative changes of thetemporomandibular joints, right greater than left. IMPRESSION: 8 mm subdural hematoma along the right convexity. -------- FINAL REPORT -------- Dictated By: Vinayak Austin Dictated Date: 11/14/2024 10:30 ET Assigned Physician: Vinayak Austin Reviewed and Electronically Signed By: Vinayak Austin Signed Date: 11/14/2024 10:36 ET Workstation ID: [id number] Transcribed By: Self Edit Transcribed Date: 11/14/2024 10:30 ET Aleida DANIELS IMTram CT PROCEDURES * (ABNORMAL) Thyroid stimulating hormone (11/14/2024 9:58 AM EST) TSH 48.69(H) 0.40 - 4.00 mcIU/mL LAB CHEMISTRY METHOD 11/15/2024 6:35 AM EST [facility] Blood Venous blood specimen / Unknown Venipuncture / Unknown 11/14/2024 9:58 AM EST 11/14/2024 10:25 AM EST Demarcus Villalobos MD LAB BLOOD ORDERABLES [facility] [address] [place] [address], * (ABNORMAL) CBC auto differential (11/14/2024 9:58 AM EST) [facility] WBC 11.6(H) 4.8 - 10.8 K/mcL LAB HEMETOLOGY METHOD 11/14/2024 10:32 AM [facility] RBC 4.10 3.80 - 4.80 M/mcL LAB HEMETOLOGY METHOD 11/14/2024 10:32 AM [facility] Hemoglobin 12.3 11.5 - 16.0 g/dL LAB HEMETOLOGY METHOD 11/14/2024 10:32 AM [facility] Hematocrit 38.2 35.0 - 47.0 % LAB HEMETOLOGY METHOD 11/14/2024 10:32 AM [facility] MCV 94.1 79.0 - 98.0 FL LAB HEMETOLOGY METHOD 11/14/2024 10:32 AM [facility] MCH 30.3 27.0 - 32.0 pcg LAB HEMETOLOGY METHOD 11/14/2024 10:32 AM [facility] MCHC 32.2 32.0 - 37.0 g/dL LAB HEMETOLOGY METHOD 11/14/2024 10:32 AM [facility] RDW 15.2(H) 11.0 - 15.0 % LAB HEMETOLOGY METHOD 11/14/2024 10:32 AM [facility] Platelets 214 130 - 400 K/mcL LAB HEMETOLOGY METHOD 11/14/2024 10:32 AM [facility] MPV 10.4 7.0 - 11.0 FL LAB HEMETOLOGY METHOD 11/14/2024 10:32 AM [facility] NRBC 0.0 <1.0 % LAB HEMETOLOGY METHOD 11/14/2024 10:32 AM [facility] NRBC Absolute 0.00 <0.10 K/[facility] LAB HEMETOLOGY METHOD 11/14/2024 10:32 AM [facility] Neutrophils Relative 88.1 % LAB HEMETOLOGY METHOD 11/14/2024 10:32 AM [facility] Lymphocytes Relative 4.8 % LAB HEMETOLOGY METHOD 11/14/2024 10:32 AM [facility] Monocytes Relative 6.4 % LAB HEMETOLOGY METHOD 11/14/2024 10:32 AM [facility] Eosinophils Relative 0.0 % LAB HEMETOLOGY METHOD 11/14/2024 10:32 AM [facility] Basophils Relative 0.1 % LAB HEMETOLOGY METHOD 11/14/2024 10:32 AM [facility] Immature Granulocytes Relative 0.6 % LAB HEMETOLOGY METHOD 11/14/2024 10:32 AM [facility] Neutrophils Absolute 10.24(H) 1.50 - 7.00 K/mcL LAB HEMETOLOGY METHOD 11/14/2024 10:32 AM [facility] Lymphocytes Absolute 0.56(L) 1.00 - 5.00 K/mcL LAB HEMETOLOGY METHOD 11/14/2024 10:32 AM [facility] Monocytes Absolute 0.74 0.20 - 1.00 K/[facility] LAB HEMETOLOGY METHOD 11/14/2024 10:32 AM EST [facility] Eosinophils Absolute 0.00 0.00 - 0.50 K/[facility] LAB HEMETOLOGY METHOD 11/14/2024 10:32 AM EST [facility] Basophils Absolute 0.01 0.00 - 0.20 K/[facility] LAB HEMETOLOGY METHOD 11/14/2024 10:32 AM EST [facility] Immature Granulocytes Absolute 0.07(H) 0.00 - 0.03 K/[facility] LAB HEMETOLOGY METHOD 11/14/2024 10:32 AM [facility] Blood Venous blood specimen / Unknown Venipuncture / Unknown 11/14/2024 9:58 AM EST 11/14/2024 10:25 AM EST Aleida DANIELS LAB BLOOD ORDERABLES [facility] [address] [place] [address], * (ABNORMAL) Comprehensive metabolic panel (11/14/2024 9:58 AM EST) Sodium 137 133 - 145 mmol/L LAB CHEMISTRY METHOD 11/14/2024 11:56 AM [facility] Potassium 3.6 3.5 - 5.5 mmol/L LAB CHEMISTRY METHOD 11/14/2024 11:56 AM [facility] Chloride 107 96 - 110 mmol/L LAB CHEMISTRY METHOD 11/14/2024 11:56 AM [facility] CO2 25 21 - 32 mmol/L LAB CHEMISTRY METHOD 11/14/2024 11:56 AM [facility] Anion Gap 5 3 - 11 LAB CHEMISTRY METHOD 11/14/2024 11:56 AM [facility] Glucose 130(H) 70 - 100 mg/dL LAB CHEMISTRY METHOD 11/14/2024 11:56 AM [facility] BUN 24 5 - 25 mg/dL LAB CHEMISTRY METHOD 11/14/2024 11:56 AM [facility] Creatinine 0.96 0.50 - 1.10 mg/dL LAB CHEMISTRY METHOD 11/14/2024 11:56 AM [facility] eGFR 61 >=60 mL/min/1. 73m2 LAB CHEMISTRY METHOD 11/14/2024 11:56 AM [facility] Comment:Calculation based on the??Chronic Kidney Disease Epidemiology Collaboration (CKD-EPI) equation refit??without adjustment for race. BUN/Creatinine Ratio 25.0 LAB CHEMISTRY METHOD 11/14/2024 11:56 AM [facility] Calcium 8.9 8.5 - 10.5 mg/dL LAB CHEMISTRY METHOD 11/14/2024 11:56 AM [facility] AST (SGOT) 52(H) 10 - 42 unit/L LAB CHEMISTRY METHOD 11/14/2024 11:56 AM [facility] Comment:Results verified by repeat testing ALT (SGPT) 40 10 - 60 unit/L LAB CHEMISTRY METHOD 11/14/2024 11:56 AM [facility] Comment:Results verified by repeat testing Alkaline Phosphatase 81 42 - 121 unit/L LAB CHEMISTRY METHOD 11/14/2024 11:56 AM [facility] Total Protein 6.8 6.0 - 8.0 g/dL LAB CHEMISTRY METHOD 11/14/2024 11:56 AM [facility] Albumin 3.9 3.2 - 5.0 g/dL LAB CHEMISTRY METHOD 11/14/2024 11:56 AM [facility] Total Bilirubin 1.0 0.0 - 1.4 mg/dL LAB CHEMISTRY METHOD 11/14/2024 11:56 AM [facility] Blood Venous blood specimen / Unknown Venipuncture / Unknown 11/14/2024 9:58 AM EST 11/14/2024 10:25 AM EST Aleida DANIELS LAB BLOOD ORDERABLES [facility] [address] [place] [address], [place] [phone] * Troponin I high sensitivity (11/14/2024 9:58 AM EST) [facility] High Sensitivity Troponin I 10 <=54 ng/L LAB CHEMISTRY METHOD 11/14/2024 10:55 AM EST [facility] Blood Venous blood specimen / Unknown Venipuncture / Unknown 11/14/2024 9:58 AM EST 11/14/2024 10:25 AM EST Narrative [facility] - 11/14/2024 10:55 AM EST High levels of biotin in samples may falsely decrease hsTroponin values. ??Use caution when interpreting hsTroponin results in patients taking biotin who exhibit renal impairment (eGFR <60) or in patients taking more than 20 mg/day of biotin. Aleida DANIELS LAB BLOOD ORDERABLES Performing Organization Address City/[facility]/ZIP Co de Phone Number [facility] [address] [place] [address], [place] [phone] * (ABNORMAL) Creatine kinase (11/14/2024 9:58 AM EST) [facility] Total CK 668(H) 22 - 269 unit/L LAB CHEMISTRY METHOD 11/14/2024 11:20 AM EST [facility] Blood Venous blood specimen / Unknown Venipuncture / Unknown 11/14/2024 9:58 AM EST 11/14/2024 10:25 AM EST Aleida DANIELS LAB BLOOD ORDERABLES [facility] [address] [place] [address], [place] [phone] * ECG 12 lead (11/14/2024 9:41 AM EST) Ventricular Rate ECG 80 BPM GEMUSE Atrial Rate 80 BPM GEMUSE P-R Interval 126 ms GEMUSE QRS Duration 80 ms GEMUSE Q-T Interval 430 ms GEMUSE QTc 495 ms GEMUSE R [place] 31 degrees GEMUSE T [place] -53 degrees GEMUSE ECG Interpretation Normal sinus rhythm Nonspecific T wave abnormality Abnormal ECG No previous ECGs available Confirmed by HELADIO SIMMONS ([id number]) on 11/14/2024 5:33:44 PM GEMUSE 11/14/2024 9:41 AM EST 11/14/2024 5:33 PM EST Román Guzman MD ECG ORDERABLES GEMUSE * PA CRITICAL CARE EACH ADDITIONAL 30 MINUTES, PA CRITICAL CARE EACH ADDITIONAL 30 MINUTES, PA CRITICAL CARE EACH ADDITIONAL 30 MINUTES (11/14/2024 [...] Román Guzman MD IN CLINIC/BEDSIDE O RDERABLES documented in this encounter Visit Diagnoses Diagnosis Acute subdural hematoma (CMS/HCC)- Primary Subdural hematoma (CMS/HCC) Subdural hemorrhage Closed fracture of left hip, initial encounter (CMS/[facility]) Syncope, unspecified syncope type Hypoxia Hypoxemia Hip fracture requiring operative repair, left, closed, initial encounter (CMS/HCC) Hip fracture requiring operative repair, left, closed, initial encounter ([facility]) documented in this encounter Admitting Diagnoses Diagnosis Acute subdural hematoma (CMS/HCC) Closed fracture of left hip (CMS/HCC) documented in this encounter Administered Medications Inactive Administered Medications - up to 3 most recent administrations Medication Order MAR Action Action Date Dose Rate Site acetaminophen (TYLENOL) tablet 1,000 mg 1,000 mg, oral, Every 8 hours scheduled, First dose on Sun11/17/24 at 1530, Recovery & On Unit Given 11/26/2024 2:09 PM EST 1,000 mg Given 11/26/2024 5:58 AM EST 1,000 mg Given 11/25/2024 9:44 PM EST 1,000 mg acetaminophen (TYLENOL) tablet 650 mg 650 mg, oral, Every 6 hours PRN, mild pain, fever - temperature GREATER than 38 C (100.4 F), Starting on Sun11/14/24 at 1256 Given 11/15/2024 11:37 AM EST 650 mg Given 11/14/2024 9:22 PM EST 650 mg amLODIPine (NORVASC) tablet 2.5 mg 2.5 mg, oral, Daily, First dose on Sun11/17/24 at 0900 Given 11/26/2024 10:09 AM EST 2.5 mg Given 11/24/2024 8:48 AM EST 2.5 mg Given 11/23/2024 9:26 AM EST 2.5 mg citalopram (CeleXA) tablet 30 mg 30 mg, oral, Daily, First dose on Sun11/15/24 at 0900 Given 11/26/2024 10:09 AM EST 30 mg Given 11/25/2024 9:18 AM EST 30 mg Given 11/24/2024 8:48 AM EST 30 mg heparin (UFH) injection 5,000 Units 5,000 Units, subcutaneous, Every 12 hours scheduled, First dose on Sun11/18/24 at 1900, Enter Indication for use of heparin (UFH) instead of enoxaparin (LOVENOX): (free text): short acting, reversible agent recommended in setting of SDH., Indication: VTE Prophylaxis, Indications: Prophylaxis of Venous Thromboembolism Given 11/26/2024 10:09 AM EST 5,000 Units Left Upper Arm (Back) Given 11/25/2024 9:45 PM EST 5,000 Units L eft Lower Abdomen Given 11/25/2024 9:19 AM EST 5,000 Units L eft Upper Arm (Back) hydrALAZINE (APRESOLINE) injection 10 mg 10 mg, intravenous, Every 6 hours PRN, systolic BP greater than:, SBP>160, Starting on 11/17/24 at 0820 Given 11/17/2024 8:44 AM EST 10 mg HYDROmorphone (PF) injection 0.5 mg 0.5 mg, intravenous, Every 3 hours PRN, severe pain or when therapies for moderate pain were not effective, Starting on Sun11/14/24 at 1256 Given 11/21/2024 11:37 PM EST 0.5 mg Given 11/20/2024 2:06 AM EST 0.5 mg Given 11/19/2024 5:05 PM EST 0.5 mg levothyroxine (SYNTHROID, LEVOTHROID) tablet 75 mcg 75 mcg, oral, Daily, First dose (after last modification) on 11/15/24 at 0900, ORAL ROUTE: take on an empty stomach and separate from other medications. ENTERAL TUBE ROUTE: If newly initiated enteral nutrition duration is over 5 days, hold enteral nutrition 1 hour before and after drug administration, per ASPEN guidelines. Given 11/26/2024 10:09 AM EST 75 mc g Given 11/25/2024 9:19 AM EST 75 mcg Given 11/24/2024 8:48 AM EST 75 mcg magnesium hydroxide (MILK OF MAGNESIA) 400 mg/5 mL suspension 30 mL 30 mL, oral, Daily PRN, constipation, Starting on Sun11/14/24 at 1256, 1st line for treatment of constipation - give scheduled if no bowel movement in past 24 hours melatonin tablet 3 mg 3 mg, oral, Nightly, First dose on 11/16/24 at 2200 Given 11/25/2024 9:44 PM EST 3 mg Given 11/24/2024 9:24 PM EST 3 mg Given 11/23/2024 8:19 PM EST 3 mg multivitamin tablet 1 tablet 1 tablet, oral, Daily, First dose on Sun11/15/24 at 0900 Given 11/26/2024 10:09 AM EST 1 tablet Given 11/25/2024 9:19 AM EST 1 tablet Given 11/24/2024 8:48 AM EST 1 tablet naloxone (NARCAN) injection 0.04 mg 0.04 mg, intravenous, As needed, opioid reversal, IV Push every 1 min for 10 doses, Starting on Sun11/14/24 at 1256, For 10 doses, To Dilute: -Use 0.4 mg/mL vial , withdraw 1 mL and add 9 mL NS -FOLLOWING DILUTION, dose of 0.04 mg = 1 mL For PARTIAL Opioid Reversal: -For respiratory rate LESS than 10 or [place] Opioid-induced Sedation Scale (POSS) equal to 4 -May be repeated at 1 minute intervals to restore adequate respirations -Administer up to 10 doses (0.4 mg) ondansetron (PF) (ZOFRAN) injection 4 mg 4 mg, intravenous, Every 6 hours PRN, vomiting, nausea, Starting on Sun11/14/24 at 1256, -ONLY give IV if patient is unable to take orally. -If inadequate response within 30 minutes, proceed to next-line agent or contact provider if no further options ordered. oxyCODONE (ROXICODONE) immediate release tablet 2.5 mg 2.5 mg, oral, Every 4 hours PRN, moderate pain, Starting on Sun11/17/24 at 1506, Recovery [facility] On Unit, If pain not improved after reassessment at 60 minutes after 1st dose, may repeat dose x1 as needed. oxyCODONE (ROXICODONE) immediate release tablet 5 mg 5 mg, oral, Every 4 hours PRN, moderate pain or when therapies for mild pain were not effective, Starting on Sun11/14/24 at 1256 Given 11/26/2024 2:10 PM EST 5 mg Given 11/26/2024 2:30 AM EST 5 mg Given 11/24/2024 9:24 PM EST 5 mg oxyCODONE (ROXICODONE) immediate release tablet 5 mg 5 mg, oral, Every 4 hours PRN, severe pain, Starting on Sun11/17/24 at 1506, Recovery [facility] On Unit Given 11/24/2024 9:01 AM EST 5 mg Given 11/23/2024 9:58 PM EST 5 mg Given 11/22/2024 8:45 PM EST 5 mg Oxygen Therapy, Adult inhalation, Continuous, Starting on Sun11/17/24 at 1530, Recovery & On Unit, Device: Nasal Cannula, Rate in liters per minute: 2 lpm, Titrate Oxygen to keep O2 Sat. at or above: 92% pantoprazole (PROTONIX) EC tablet 40 mg 40 mg, oral, Every morning before breakfast, First dose on Sun11/17/24 at 1145, Do not crush, chew, or split. Given 11/26/2024 6:12 AM EST 40 mg Given 11/25/2024 6:22 AM EST 40 mg Given 11/24/2024 6:05 AM EST 40 mg polyethylene glycol (MIRALAX) packet 17 g 17 g, oral, Daily, First dose on Sun11/14/24 at 1257, Bowel Regimen - for prevention of constipation Given 11/26/2024 10:10 AM EST 17 g Given 11/25/2024 9:20 AM EST 17 g Given 11/24/2024 8:49 AM EST 17 g senna-docusate (PERICOLACE) 8.6-50 mg per tablet 2 tablet 2 tablet, oral, Nightly, First dose on Sun11/17/24 at 2100, Recovery & On Unit Given 11/25/2024 9:44 PM EST 2 tablet s Given 11/24/2024 9:24 PM EST 2 tablets Given 11/23/2024 8:19 PM EST 2 tablets sodium chloride 0.9 % flush 10 mL 10 mL, intravenous, 2 times daily, First dose on Sun11/14/24 at 1257 Given 11/26/2024 10:12 AM EST 10 mL Given 11/25/2024 9:53 PM EST 10 mL Given 11/25/2024 9:20 AM EST 10 mL sodium chloride 0.9 % flush 10 mL 10 mL, intravenous, As needed, line care, Starting on Sun11/14/24 at 1256 Given 11/17/2024 8:55 AM EST 10 mL Given 11/16/2024 10:07 AM EST 10 mL documented in this encounter Discontinued Medications Medication Sig Discontinue Reason Start Date End Da te levothyroxine (SYNTHROID, LEVOTHROID) 50 mcg tablet TAKE 1 TABLET BY MOUTH DAILY 09/05/2024 11/24/2024 diclofenac (VOLTAREN) 1 % topical gel Apply 1 g topically 3 (three) times a day for 10 days. Stop Taking at Discharge 11/10/2024 11/26/2024 documented as of this encounter Active and Recently Administered Medications Times are shown in EST. Scheduled Medication Order 11/24/2024 11/25/2024 11/26/2024 acetaminophen (TYLENOL) tablet 1,000 mg 1,000 mg, oral, Every 8 hours scheduled, First dose on Sun11/17/24 at 1530, [facility] On Unit 0605 (Given - Provider: Amara Zhu RN)1437 (Given - Provider: Yolanda Carson RN)2124 (Given - Provider: Amara Zhu RN) 0622 (Given - Provider: Amara Zhu RN)1438 (Given - Provider: Joseph Arita RN)2144 (Given - Provider: Bridgett Guevara RN) 0558 (Given - Provider: Bridgett Guevara RN)1409 (Given - Provider: Joseph Arita RN) amLODIPine (NORVASC) tablet 2.5 mg 2.5 mg, oral, Daily, First dose on Sun11/17/24 at 0900 0848 (Given - Provider: Yolanda Carson RN) 0919 (Not Given - Provider: Joseph Arita RN - Reason: Other - Comment: decreasd BP) 1009 (Given - Provider: Joseph Arita RN) citalopram (CeleXA) tablet 30 mg 30 mg, oral, Daily, First dose on Sun11/15/24 at 0900 0848 (Given - Provider: Yolanda Carson RN) 0918 (Given - Provider: Joseph Arita RN) 1009 (Given - Provider: Joseph Arita RN) heparin (UFH) injection 5,000 Units 5,000 Units, subcutaneous, Every 12 hours scheduled, First dose on Sun11/18/24 at 1900, Enter Indication for use of heparin (UFH) instead of enoxaparin (LOVENOX): (free text): short acting, reversible agent recommended in setting of SDH., Indication: VTE Prophylaxis, Indications: Prophylaxis of Venous Thromboembolism 0848 (Given - Provider: Yolanda Carson RN)2124 (Given - Provider: Amara Zhu, JAMMIE) 0919 (Given - Provider: Joseph Arita, JAMMIE)214 (Given - Provider: Bridgett Guevara RN) 1009 (Given - Provider: Joseph Arita RN)2100 (Canceled Entry - Provider: Automatic Discharge Provider - Comment: Automatically canceled at discontinue of medication order) levothyroxine (SYNTHROID, LEVOTHROID) tablet 75 mcg 75 mcg, oral, Daily, First dose (after last modification) on 11/15/24 at 0900, ORAL ROUTE: take on an empty stomach and separate from other medications. ENTERAL TUBE ROUTE: If newly initiated enteral nutrition duration is over 5 days, hold enteral nutrition 1 hour before and after drug administration, per ASPEN guidelines. 0848 (Given - Provider: Yolanda Carson RN) 0919 (Given - Provider: Joseph Arita RN) 1009 (Given - Provider: Joseph Arita RN) LORazepam (ATIVAN) tablet 0.5 mg (COMPLETED) 0.5 mg, oral, Once, On Sun11/26/24 at 0300, For 1 dose 0244 (Given - Provider: Bridgett Guevara RN) melatonin tablet 3 mg 3 mg, oral, Nightly, First dose on Sun11/16/24 at 2200 2124 (Given - Provider: Amara Zhu, JAMMIE) 2143 (Given - Provider: Bridgett Guevara RN) 2100 (Canceled Entry - Provider: Automatic Discharge Provider - Comment: Automatically canceled at discontinue of medication order) multivitamin tablet 1 tablet 1 tablet, oral, Daily, First dose on 11/15/24 at 0900 0848 (Given - Provider: Yolanda Carson RN) 0919 (Given - Provider: Joseph Ariat RN) 1009 (Given - Provider: Joseph Arita RN) pantoprazole (PROTONIX) EC tablet 40 mg 40 mg, oral, Every morning before breakfast, First dose on Sun11/17/24 at 1145, Do not crush, chew, or split. 0605 (Given - Provider: Amara Zhu RN) 0622 (Given - Provider: Amara Zhu, JAMMIE) 0612 (Given - Provider: Bridgett Guevara, RN) polyethylene glycol (MIRALAX) packet 17 g 17 g, oral, Daily, First dose on Sun11/14/24 at 1257, Bowel Regimen - for prevention of constipation 0849 (Given - Provider: Yolanda Carson, JAMMIE) 0920 (Given - Provider: Joseph Arita, JAMMIE) 1010 (Given - Provider: Joseph Arita, JAMMIE) senna-docusate (PERICOLACE) 8.6-50 mg per tablet 2 tablet 2 tablet, oral, Nightly, First dose on Sun11/17/24 at 2100, Recovery [facility] On Unit 2124 (Given - Provider: Amara Zhu RN) 2144 (Given - Provider: Bridgett Guevara RN) 2100 (Canceled Entry - Provider: Automatic Discharge Provider - Comment: Automatically canceled at discontinue of medication order) sodium chloride 0.9 % flush 10 mL(Linked Group 1) 10 mL, intravenous, 2 times daily, First dose on Sun11/14/24 at 1257 0849 (Given - Provider: Yolanda Carson RN)2129 (Given - Provider: Amara Zhu RN) 0920 (Given - Provider: Joseph Arita RN)2153 (Given - Provider: Bridgett Guevara RN) 1012 (Given - Provider: Joseph Arita, JAMMIE)2100 (Canceled Entry - Provider: Automatic Discharge Provider - Comment: Automatically canceled at discontinue of medication order) Continuous Medication Order 11/24/2024 11/25/2024 11/26/2024 Oxygen Therapy, Adult inhalation, Continuous, Starting on Sun11/17/24 at 1530, Recovery & On Unit, Device: Nasal Cannula, Rate in liters per minute: 2 lpm, Titrate Oxygen to keep O2 Sat. at or above: 92% PRN Medication Order 11/24/2024 11/25/2024 11/26/2024 acetaminophen (TYLENOL) tablet 650 mg 650 mg, oral, Every 6 hours PRN, mild pain, fever - temperature GREATER than 38 C (100.4 F), Starting on Sun11/14/24 at 1256 hydrALAZINE (APRESOLINE) injection 10 mg 10 mg, intravenous, Every 6 hours PRN, systolic BP greater than:, SBP>160, Starting on Sun11/17/24 at 0820 HYDROmorphone (PF) injection 0.5 mg 0.5 mg, intravenous, Every 3 hours PRN, severe pain or when therapies for moderate pain were not effective, Starting on Sun11/14/24 at 1256 magnesium hydroxide (MILK OF MAGNESIA) 400 mg/5 mL suspension 30 mL 30 mL, oral, Daily PRN, constipation, Starting on Sun11/14/24 at 1256, 1st line for treatment of constipation - give scheduled if no bowel movement in past 24 hours naloxone (NARCAN) injection 0.04 mg 0.04 mg, intravenous, As needed, opioid reversal, IV Push every 1 min for 10 doses, Starting on Sun11/14/24 at 1256, For 10 doses, To Dilute: -Use 0.4 mg/mL vial , withdraw 1 mL and add 9 mL NS -FOLLOWING DILUTION, dose of 0.04 mg = 1 mL For PARTIAL Opioid Reversal: -For respiratory rate LESS than 10 or [place] Opioid-induced Sedation Scale (POSS) equal to 4 -May be repeated at 1 minute intervals to restore adequate respirations -Administer up to 10 doses (0.4 mg) ondansetron (PF) (ZOFRAN) injection 4 mg 4 mg, intravenous, Every 6 hours PRN, vomiting, nausea, Starting on Sun11/14/24 at 1256, -ONLY give IV if patient is unable to take orally. -If inadequate response within 30 minutes, proceed to next-line agent or contact provider if no further options ordered. oxyCODONE (ROXICODONE) immediate release tablet 2.5 mg 2.5 mg, oral, Every 4 hours PRN, moderate pain, Starting on Sun11/17/24 at 1506, Recovery & On Unit, If pain not improved after reassessment at 60 minutes after 1st dose, may repeat dose x1 as needed. oxyCODONE (ROXICODONE) immediate release tablet 5 mg 5 mg, oral, Every 4 hours PRN, moderate pain or when therapies for mild pain were not effective, Starting on Sun11/14/24 at 1256 2124 (Given - Provider: Amara Zhu, RN) 0230 (Given - Provider: Bridgett Guevara, JAMMIE)1410 (Given - Provider: Joseph Arita RN) oxyCODONE (ROXICODONE) immediate release tablet 5 mg 5 mg, oral, Every 4 hours PRN, severe pain, Starting on Sun11/17/24 at 1506, Recovery [facility] On Unit 0901 (Given - Provider: Yolanda Carson RN) sodium chloride 0.9 % flush 10 mL(Linked Group 1) 10 mL, intravenous, As needed, line care, Starting on Sun11/14/24 at 1256 Linked Groups Order Group 1: Insert peripheral IV (COMPLETED) STAT, Once, On Sun11/14/24 at 1257, For 1 occurrence And Maintain IV access (CANCELED) Until discontinued, Starting on Sun11/14/24 at 1257, Until Specified And Saline lock IV (COMPLETED) Routine, Once, On Sun11/14/24 at 1257, For 1 occurrence And sodium chloride 0.9 % flush 10 mLJump to med 10 mL, intravenous, 2 times daily, First dose on Sun11/14/24 at 1257 And sodium chloride 0.9 % flush 10 mLJump to med 10 mL, intravenous, As needed, line care, Starting on Sun11/14/24 at 1256 documented in this encounter Orders Medications Ordered That Sabino ht Not Have Been Administered Count Last Ordered Date First Ordered Date LORazepam (ATIVAN) tablet 0.5 mg 2 11/26/19 25 11/15/2024 heparin (UFH) injection 5,000 Units 1 11/18 perflutren lipid microsphere (DEFINITY) 1.3 mL in sodium chloride 0.9% 8.7 mL injection 1 11/18/2024 acetaminophen (TYLENOL) tablet 1,000 mg 1 0 11/17/2024 acetaminophen (TYLENOL) tablet 650 mg 2 11/14/2024 amLODIPine (NORVASC) tablet 2.5 mg 1 2024 ceFAZolin (ANCEF) 2 g in [facility] rile water 20 mL IV syringe 2 11/17/2024 11/14/2024 fosfomycin (MONUROL) packet 3 g 1 hydrALAZINE (APRESOLINE) injection 10 mg 1 11/17/2024 HYDROmorphone (PF) injection 0.5 mg 2 11/1711/14/2024 lactated Ringer's infusion 2 11/17/2024 0 11/14/2024 lactated Ringer's infusion 1,000 mL 1 11/17 ondansetron (PF) (ZOFRAN) injection 4 mg 3 11/17/2024 11/14/2024 ondansetron ODT (ZOFRAN-ODT) disintegrating tablet 4 mg 1 11/17/2024 oxyCODONE (ROXICODONE) immed iate release tablet 2.5 mg 1 11/17/2024 oxyCODONE (ROXICODONE) immed iate release tablet 5 mg 3 11/17/2024 11/14/2024 Oxygen Therapy, Adult 1 11/17/2024 pantoprazole (PROTONIX) EC tablet 40 mg 1 0 11/17/2024 potassium chloride (KLOR-CON M20) CR tablet 40 mEq 1 11/17/2024 senna-docusate (PERICOLACE) 8.6-50 mg per tablet 2 tablet 1 11/17/2024 iopamidoL (ISOVUE-370) 370 m g iodine /mL (76 %) injection 80 mL 1 11/16/2024 melatonin tablet 3 mg 2 11/16/20242024 sodium chloride 0.9 % flush 10 mL 3 025 11/14/2024 levothyroxine (SYNTHROID, LE VOTHROID) tablet 75 mcg 1 11/15/2024 cefTRIAXone (ROCEPHIN) 1 g i n sterile water 10 mL IV syringe 1 11/14/2024 citalopram (CeleXA) tablet 30 mg 1 11/14/19 levothyroxine (SYNTHROID, LE VOTHROID) tablet 50 mcg 1 11/14/2024 magnesium hydroxide (MILK OF MAGNESIA) 400 mg/5 mL suspension 30 mL 1 11/14/2024 morphine injection 4 mg 1 11/14/2024 multivitamin tablet 1 tablet 1 11/14/2024 naloxone (NARCAN) injection 0.04 mg 1 11/14 polyethylene glycol (MIRALAX) packet 17 g 1 11/14/2024 sodium chloride 0.9 % bolus 500 mL 1 2024 tranexamic acid (CYKLOKAPRON ) 1,000 mg in sodium chloride 0.9 % 100 mL IVPB 2 11/14/2024 Nursing Count Last Ordered Date First Orde red Date MISCELLANEOUS NURSING CARE ORDER (SPECIFY) 1 11/14/2024 NURSING SWALLOW SCREEN 1 11/14/2024 OT Count Last Ordered Date First Orde red Date OT EVAL AND TREAT 1 11/17/2024 Respiratory Care Count Last Ordered Date First Ordered Date OXYGEN THERAPY, ADULT 1 11/17/2024 WIRE BORDER ASSEMBLER Count Last Ordered Date First Orde red Date WIRE BORDER ASSEMBLER SWALLOW EVAL AND TREAT 1 11/14/2024 IV Count Last Ordered Date First Orde red Date INSERT PERIPHERAL IV 1 11/14/2024 SALINE LOCK IV 1 11/14/2024 Admission Count Last Ordered Date First Orde red Date ADMIT TO INPATIENT 1 11/14/2024 Transfer Count Last Ordered Date First Orde red Date TRANSFER PATIENT TO NEW UNIT 1 11/20/2024 ED TO FLOOR BED REQUEST 1 11/14/2024 Discharge Count Last Ordered Date First Orde red Date DISCHARGE PATIENT 1 11/24/2024 CORE MEASURES Count Last Ordered Date First Ord ered Date REASON FOR NO VTE PROPHYLAXI S - HOSPITAL ADMISSION - MECHANICAL 1 11/14/2024 documented in this encounter Additional Health Concerns Infection Onset Date Last Indicated Resolved Time ESBL 11/14/2024 11/14/2024 Respiratory Rule-Out 11/16/2024 11/16/2024 025 7:20 AM EST COVID-19 Rule-Out 11/16/2024 11/16/2024 11/16/2024 7:20 AM EST Assessment Noted Time PHQ-9 Depression Total Score: 5 08/31/20 24 9:42 AM EST documented as of this encounter 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
--- OUTSIDE RECORDS SUMMARY | 2024-11-27 05:22 | XMS_ITS | Encounter Summary ---
Author Organization [facility] Address [address] [place] [address] Care Team Providers Care Laborer Tin [place] Name Role Phone Garcia Doran MD Primary Care Provider [phone] Reason for Visit * Reason Comments Fall Altered Mental Status * Auth/Cert Specialty Diagnoses / Procedures Referred By Contgildardo t Referred To Contact Diagnoses Acute subdural hematoma (CMS/HCC) Procedures . Demarcus Villalobos MD [address] [place] [id number] [facility] Emergency [address] [place] [address] Referral ID Status Reason Start Date Expiration Date Visits Re quested Visits Authorized [id number] 1 1 Encounter Details Date Type Department Care Team (Late st Contact Info) Description 11/14/2024 9:22 AM EST - 11/26/2024 7:07 PM [facility] Hospital Encounter [facility] [address] [place] [address] Román Guzman MD [address] [id number] Demarcus Villalobos MD [address] [place] [phone] Joel Subramanian DO [address] [place] [address] Bhavin Garcia MD [address] [place] [phone] Saundra Bucio MD [address] [place] [phone] Trace Burris MD [address] [place] [address] Subdural hematoma (CMS/HCC) (Primary Dx); Closed fracture of left hip, initial encounter (CMS/HCC); Syncope, unspecified syncope type; Hypoxia; Hip fracture requiring operative repair, left, closed, initial encounter (CMS/HCC) Discharge Disposition: [facility] Facility Social History Tobacco Use Types Packs/Day Years [...] care for your loved ones. For example, professor of early childhood education or elderly care for an older adult? [...] Problems Primary Discharge Diagnosis: Acute subdural hematoma ([facility]/HCC) Secondary Discharge Diagnosis: Left hip fracture Discharge Disposition Final discharge disposition not confirmed Code Status at Discharge: Full Code - Default Hospital Course Summary Presenting Problem/History of Present Illness Subdural hematoma ([facility]/HCC) [S06.5XAA] Acute subdural hematoma (CMS/HCC) [S06.5XAA] Closed fracture of left hip, initial encounter ([facility]) [S72.002A] Chief Complaint Patient presents with Fall Altered Mental Status HPI 79-year-old former smoker woman with past medical history significant for hypertension, dyslipidemia, hypothyroidism, osteopenia, depression and anxiety was brought to [facility] ED after her found her around 3 [...] coronal images of brain were obtained. Scanner: [employer] 64 slice VCT Dose reduction technique: ASIR [...] De Anda Reviewed and Electronically Signed By: Wilian De AndanalSigned Date: 11/15/2024 08:30 ET Workstation ID: [id number] Transcribed By: Self Edit Transcribed Date: 11/15/2024 [...] Signed Date: 11/14/2024 14:51 ET Workstation ID: [id number] Transcribed By: Self Edit Transcribed Date: 11/14/2024 [...] Signed Date: 11/14/2024 12:30 ET Workstation ID: [id number] Transcribed By: Self Edit Transcribed Date: 11/14/2024 [...] Signed Date: 11/14/2024 11:08 ET Workstation ID: [id number] Transcribed By: Self Edit Transcribed Date: 11/14/2024 [...] Signed Date: 11/14/2024 11:08 ET Workstation ID: [id number] Transcribed By: Self Edit Transcribed Date: 11/14/2024 [...] Signed Date: 11/14/2024 10:36 ET Workstation ID: [id number] Transcribed By: Self Edit Transcribed Date: 11/14/2024 [...] mg per tablet Follow-Up Instructions and Recommendations [address] [address] No discharge procedures on file. There are no outpatient Patient Instructions on file for this admission. Outpatient Follow-Up Future Appointments Date Time Provider Department Center 12/05/2024 10:[address] [place] SP 12/05/2024 11:15 AM FRANCES Bee [facility] NEURS None 03/06/2025 11:30 AM Garcia Doran MD [facility] 305 Bic Test Results Pending [...] by Dr. Hester - Follow up with [facility] in 2 weeks. If you [...] or neurological decline. Follow up with Dr. aDmico, neurosurgeon, in 2-3 weeks for repeat head [...] your follow up appointment. - Please call [facility] with any questions or concerns. [facility] [address] [place] [id number] documented in this encounter Medications at Time [...] Disposition Code Departure Means Destination Comment s [facility] Facility Ambulance documented in this encounter Progress [...] onward) Start Ordered 11/17/24 1503 Adult diet [facility]; Modified Consistency Options for Liquidsand Solids, General; Regular; IDDSI Level 7 Easy to Chew (Order Panel) Diet effective now Question Answer Comment Location [facility] Diet Type (req) Modified Consistency Options [...] seen for follow up- noted after visit, oil field caser note stating that pt discharging to snf facility at 6 pm today. Pt reports good intake/appetite. States she is having at least half of meals. handicapped teacher indicates pt consume 100% of meals on [...] 1627 Initial Transition Plan Initial Transition Plan [facility] Facility Transportation Transportation at discharge [facility] providing transportation Amanuel What day is the transport expected? 11/26/24 What time is the transport expected? 1800 Final Discharge Disposition [facility] Facility ([facility]) ICC spoke to Fredy and daughter Yovana and updated them on transfer * Bridgette Zelaya - 11/26/2024 1:10 PM EST [facility] Physical Therapy Treatment PT Discharge Recommendations: Inpatient rehab facility placement, shelter facility placement Equipment Recommended: walker Staff Recommendations [...] is a 79 y.o. female admitted to [facility] on 11/14/2024 with: Patient Active Problem List Diagnosis Anxiety Depression HTN (hypertension) Hyperlipidemia Hypothyroidism Osteopenia Osteoporosis Closed fracture of left hip (CMS/HCC) Acute subdural hematoma ([facility]/HCC) Fall prevention education provided including use of [...] day PT Discharge Recommendations Inpatient rehab facility placement;shelter facility placement Equipment Recommended walker Barriers to [...] PT Discharge Recommendations: Inpatient rehab facility placement, shelter facility placement Equipment Recommended: walker Barriers to [...] a 79 y.o. female : 1945 MR#: [id number] ASSESSMENT & PLAN Assessment/Plan Principal Problem: Acute [...] AND sodium chloride OBJECTIVE Vitals: 11/25/24 1445 11/25/24201111/26/24 0333 11/26/24 0827 BP: 128/62 126/57 117/56 [...] Signed Date: 11/21/2024 08:46 ET Workstation ID: [id number] Transcribed By: Self Edit Transcribed Date: 11/21/2024 [...] from the original note were not included. BATH PROGRESS NOTE Date: 11/25/2024 Author: Trace Burris MD Patient ID: Isabela Rios is a 79 y.o. female : 1945 MR#: [id number] ASSESSMENT & PLAN Assessment/Plan Principal Problem: Acute [...] Signed Date: 11/21/2024 08:46 ET Workstation ID: [id number] Transcribed By: Self Edit Transcribed Date: 11/21/2024 [...] Ruelas RN - 11/24/2024 4:02 PM EST [facility] received a message from [facility] is offering peer to peer prior to determination. Deadline is 10:30 am 11/25/24. Please have provider call [phone] option 5. thanks Message forwarded to ICC manager wound, and Bark Scaler. Daughter Yovana updated * Yolanda Carson RN - 11/24/2024 [...] continueto monitor. DC order entered. * Bridgette Garcia - 11/24/2024 11:31 AM EST [facility] Physical Therapy Treatment PT Discharge Recommendations: Inpatient rehab facility placement, shelter facility placement Equipment Recommended: walker Staff Recommendations [...] is a 79 y.o. female admitted to [facility] on 11/14/2024 with: Patient Active Problem List Diagnosis Anxiety Depression HTN (hypertension) Hyperlipidemia Hypothyroidism Osteopenia Osteoporosis Hip fracture requiring operative repair, left, closed, initial encounter ([facility]) Acute subdural hematoma ([facility]) Fall prevention education provided including use of [...] day PT Discharge Recommendations Inpatient rehab facility placement;shelter facility placement Equipment Recommended walker Barriers to [...] treatment well Comments: pt was I at [facility]; feel she is a good candidate for acute rehab Medical Staff Made Aware: Yes Plan Treatment/Interventions: LE strengthening/ROM, Gait training, Endurance training PT Plan: Skilled PT PT Frequency: 2-5 days per week PT Duration of Sessions: 15-30 min per session PT Treatments per day: 1 time per day PT Discharge Recommendations: Inpatient rehab facility placement, shelter facility placement Equipment Recommended: walker Barriers to [...] a 79 y.o. female : 1945 MR#: [id number] SUBJECTIVE CC: Here after fall resulting in [...] Signed Date: 11/21/2024 08:46 ET Workstation ID: [id number] Transcribed By: Self Edit Transcribed Date: 11/21/2024 [...] Rachel Bernard and Tucker. Rachel Bernard at [phone] - I met her at the bedside [...] from the original note were not included. BATH PROGRESS NOTE Date: 11/22/2024 Author: Saundra Bucio MD Patient ID: Isabela Rios is a 79 y.o. female : 1945 MR#: [id number] SUBJECTIVE CC: Here after fall resulting in [...] Signed Date: 11/21/2024 08:46 ET Workstation ID: [id number] Transcribed By: Self Edit Transcribed Date: 11/21/2024 [...] and Tucker. I called Rachel Bernard at [phone] and left the message. * Evangelina Flowers, PT - 11/22/2024 10:13 AM EST [facility] Physical Therapy Treatment PT Discharge Recommendations: shelter facility placement, Inpatient rehab facility placement Equipment [...] is a 79 y.o. female admitted to [facility] on 11/14/2024 with: Patient Active Problem List Diagnosis Anxiety Depression HTN (hypertension) Hyperlipidemia Hypothyroidism Osteopenia Osteoporosis Hip fracture requiring operative repair, left, closed, initial encounter ([facility]) Acute subdural hematoma ([facility]) Fall prevention education provided including use of [...] 1 time per day PT Discharge Recommendations shelter facility placement;Inpatient rehab facility placement PT - [...] treatment well Comments: pt was I at [facility]; feel she is a good candidate for acute rehab Medical Staff Made Aware: Yes Plan Treatment/Interventions: LE strengthening/ROM, Endurance training, Gait training PT Plan: Skilled PT PT Frequency: 2-5 days per week PT Duration of Sessions: 15-30 min per session PT Treatments per day: 1 time per day PT Discharge Recommendations: shelter facility placement, Inpatient rehab facility placement Equipment [...] Resolved: 11/21/24 Outcomes Date/Time User Outcome 11/21/24 105Osmel Zelaya Completed Goal: Patient will transfer sit<>stand [...] Outcomes Date/Time User Outcome 11/20/24 1325 Bridgette Velásquezivyroxy Completed Education Documentation Precautions, taught by Evangelina [...] hot Home Exercise Program, taught by Evangelina Flowers, PT at 11/22/2024 10:10 AM. Learner: Patient [...] hot Education Comments No comments found. Evangelina Flowers, PT * Kathleen Martins OT - 11/22/2024 9:00 AM EST [facility] Occupational Therapy Treatment Note DATE: Friday November 22, 2024 TIME IN: 0900 TIME OUT: 0945 Pt: Isabela Rios 529/529-2 DISCHARGE RECS: shelter facility placement, Inpatient rehab facility placement EQUIPMENT RECS: Walker-rolling (legal researcher, sock aid) SAFE PT HANDLING REC FOR [...] OT Start Time 0900 OT Stop Time 45 OT Time Calculation (min) 45 min Precautions [...] movement during this time in which Nurse Garza was updated and aware. Ptcompleted fxnl mobility [...] - Evaluation Status Complete OT Discharge Recommendations shelter facility placement;Inpatient rehab facility placement Equipment Recommended Walker-rolling (legal researcher, sock aid) ADDITIONAL COMMENTS: Chart reviewed. JAMMIE giraldo pt for session. Pt agrees to participate [...] onward) Start Ordered 11/17/24 1503 Adult diet [facility]; Modified Consistency Options for Liquidsand Solids, General; Regular; IDDSI Level 7 Easy to Chew (Order Panel) Diet effective now Question Answer Comment Location [facility] Diet Type (req) Modified Consistency Options [...] (increased her walking, cut back ). Appetite LIME PLANT OPERATOR: Good Intake LIME PLANT OPERATOR: Stable Vitamins/Minerals/Herbs: one a day type multivitamin [...] (Mouth to Rectum): Other (Comment) (Per RN, BM 11/14) Nerves and Cognition: Alert (genrally oriented) [...] a 79 y.o. female : 1945 MR#: [id number] SUBJECTIVE CC: Here after fall resulting in [...] Signed Date: 11/21/2024 08:46 ET Workstation ID: [id number] Transcribed By: Self Edit Transcribed Date: 11/21/2024 [...] Bridgette Zelaya - 11/21/2024 10:54 AM EST [facility] Physical Therapy Treatment PT Discharge Recommendations: Inpatient rehab facility placement, shelter facility placement Equipment Recommended: walker Staff Recommendations [...] is a 79 y.o. female admitted to [facility] on 11/14/2024 with: Patient Active Problem List Diagnosis Anxiety Depression HTN (hypertension) Hyperlipidemia Hypothyroidism Osteopenia Osteoporosis Hip fracture requiring operative repair, left, closed, initial encounter ([facility]) Acute subdural hematoma ([facility]) Fall prevention education provided including use of call light in hospital, use of appropriate assistive device, safe mobility techniques, and safety measures at home. Continue PT as per POC. Subjective I don't think I will ever be the same again, but I will try Objective 11/21/24 0930 PT Last Visit PT Received On 11/21/24 PT Time Calculation PT Start Time 929 PT Stop Time 1000 PT Time Calculation [...] day PT Discharge Recommendations Inpatient rehab facility placement;shelter facility placement Equipment Recommended walker Barriers to [...] treatment well Comments: pt was I at [facility]; feel she is a good candidate for acute rehab Medical Staff Made Aware: Yes Plan Treatment/Interventions: LE strengthening/ROM, Endurance training, Gait training PT Plan: Skilled PT PT Frequency: 7 days per week PT Duration of Sessions: 15-30 min per session PT Treatments per day: 1 time per day PT Discharge Recommendations: Inpatient rehab facility placement, shelter facility placement Equipment Recommended: walker Barriers to [...] found. Education Comments No comments found. Bridgette Zelaya Associated attestation - Evangelina Flowers, PT - 11/21/2024 1:15 PM EST Pt [...] over left periorbital region Oriented to person, [facility], Oct 2024. Respirations unlabored and heart had [...] with a new head CT. * Kathleen Martins, OT - 11/21/2024 9:30 AM EST [facility] Occupational Therapy Treatment Note DATE: Thursday November 21, 2024 TIME IN: 929 TIME OUT: 1010 Pt: Isabela Rios 529/529-2 DISCHARGE RECS: shelter facility placement, Inpatient rehab facility placement EQUIPMENT RECS: Walker-rolling (legal researcher) SAFE PT HANDLING REC FOR STAFF: 1 [...] - Evaluation Status Complete OT Discharge Recommendations shelter facility placement;Inpatient rehab facility placement Equipment Recommended Walker-rolling (legal researcher) ADDITIONAL COMMENTS: Chart reviewed. RN clears pt [...] RW CGA Dates: Start: 11/21/24 Expected End: 01/31/25 Encounter Problems (Resolved) There are no resolved [...] Orthopedic team. No acute findings. Tissue exam: [id number] Order: [id number] Collected 11/17/2024 13:17 Status: Final result Visible [...] with some hemorrhage around the margin. A scheduling representative section is submitted in one cassette following decalcification, one piece [facility]CO Disclaimer Unless otherwise specified, all tissue is 10% NB formalin fixed and paraffin embedded. Resulting Agency [facility] Collection Information Specimen ID: 1 Bone Bone Collected: 11/17/2024 1317 EST ELVA HESTER Received: 11/17/2024 1555 EST Resulting Agency: [facility] ([facility]) HOSPITAL LAB [address] [facility] [address] * Magnolia Lincoln OT - 11/20/2024 3:42 PM EST 11/20/24 [...] chair with back Prior Function Level of Baker Independent with mobility and functional transfers Indoor [...] Entry OT Evaluation (Low) Time Entry 35 [facility] Occupational Therapy Evaluation DATE: October TIME IN: [...] is a 79 y.o. female admitted to [facility] on 11/14/2024. Occupational Therapy evaluation and treatment ordered to assess ADL independence, safety, and functional mobility for discharge planning. Patient Active Problem List Diagnosis Anxiety Depression HTN (hypertension) Hyperlipidemia Hypothyroidism Osteopenia Osteoporosis Hip fracture requiring operative repair, left, closed, initial encounter ([facility]) Acute subdural hematoma ([facility]) Past Medical History: Diagnosis Date Anxiety 06/11/2017 [...] Precautions Contact;Fall Risk;Limb restriction Safety Interventions Call burrsi within reach;ID band on;Bed alarm;Side rails up [...] chair with back Prior Function Level of Baker Independent with mobility and functional transfers Indoor [...] a 79 y.o. female : 1945 MR#: [id number] SUBJECTIVE CC: Here after fall resulting in [...] Signed Date: 11/18/2024 14:33 ET Workstation ID: [id number] Transcribed By: Self Edit Transcribed Date: 11/18/2024 [...] Signed Date: 11/18/2024 06:58 ET Workstation ID: [id number] Transcribed By: Self Edit Transcribed Date: 11/18/2024 [...] Bridgette Zelaya - 11/20/2024 1:27 PM EST [facility] Physical Therapy Treatment PT Discharge Recommendations: Inpatient [...] is a 79 y.o. female admitted to [facility] on 11/14/2024 with: Patient Active Problem List Diagnosis Anxiety Depression HTN (hypertension) Hyperlipidemia Hypothyroidism Osteopenia Osteoporosis Hip fracture requiring operative repair, left, closed, initial encounter (CMS/HCC) Acute subdural hematoma (CMS/[facility]) Fall prevention education provided including use of [...] treatment well Comments: pt was I at [facility]; feel she is a good candidate for [...] End: 11/20/24 Outcomes Date/Time User Outcome 11/20/24 132 Bridgette Zelaya Progressing Goal: Patient will transfer [...] Surgery 11/20/2024 8:12 AM EST * Cecelia Perez, PT - 11/19/2024 3:20 PM EST Patient: Isabela Rios Age: 79 y.o. Sex: female Acute subdural hematoma (CMS/HCC) [facility] Physical Therapy Treatment Ambulation: Walking Assistance: Moderate assistance Walking Deficit: Steadying, Verbal cueing, Supervision/safety awareness, Increased time to complete, Assist for foot placement, Assist for trunk control, Assist for weight shifting, Limited endurance, Impaired balance, LE weakness Device: Rolling walker Distance Ambulated (ft): (P) 2 PLOF: Level of Baker: Independent with mobility and functional transfers Lives With: Spouse Type of Home: House Home Access: Stairs to enter with rails [facility] Discharge Recommendation: Reason for current recommendation [...] treatment well Comments pt was I at [facility]; feel she is a good candidate for acute rehab Medical Staff Made Aware Yes Plan PT Discharge Recommendations Inpatient rehab facility placement;shelter facility placement PLAN Acute Care Plan: PT Plan: Skilled PT PT Frequency: Other (Comment) (BID) PT Discharge Recommendations: (P) Inpatient rehab facility placement, shelter facility placement Equipment Recommended: rwalker Time Spent: PT Time Calculation PT Start Time: 1520 PT Stop Time: 1605 PT Time Calculation [...] a 79 y.o. female : 1945 MR#: [id number] SUBJECTIVE CC: Here after fall resulting in [...] Signed Date: 11/18/2024 14:33 ET Workstation ID: [id number] Transcribed By: Self Edit Transcribed Date: 11/18/2024 [...] Signed Date: 11/18/2024 06:58 ET Workstation ID: [id number] Transcribed By: Self Edit Transcribed Date: 11/18/2024 [...] management and this was conveyed to our oil field caser. * FRANCES Herrera - 11/19/2024 10:04 AM [...] Signed Date: 11/18/2024 14:33 ET Workstation ID: [id number] Transcribed By: Self Edit Transcribed Date: 11/18/2024 [...] Signed Date: 11/18/2024 06:58 ET Workstation ID: [id number] Transcribed By: Self Edit Transcribed Date: 11/18/2024 [...] Patient is alert and oriented to person, [employer] , and year. Cranial Nerves: No [...] Orthopedics and Dr. Yeboah from Neurosurgery at [place]. Patient is neurologically stable. Will continue to [...] oral regimen. She has been monitored in [facility] due to SDH. Discussed in length with [...] heparin. This will be communicated to both [place] and neurosurgery teams. I anticipate we will [...] Signed Date: 11/18/2024 14:33 ET Workstation ID: [id number] Transcribed By: Self Edit Transcribed Date: 11/18/2024 [...] change in her neurologic examination. * Cecelia , PT - 11/18/2024 3:05 PM EST Patient: Isabela Rios Age: 79 y.o. Sex: female Acute subdural hematoma (CMS/HCC) [facility] Physical Therapy Evaluation PLOF: Level of Baker: Independent with mobility and functional transfers Lives With: Spouse Type of Home: House Home Access: Stairs to enter with rails DME Needs: rwalker PT Discharge Recommendation: shelter facility placement Reason for current recommendation based [...] of Steps 2 Prior Function Level of Baker Independent with mobility and functional transfers Indoor [...] Frequency Other (Comment) (BID) PT Discharge Recommendations shelter facility placement Equipment Recommended monae PT - Evaluation Status Complete PT Evaluation Time Entry PT Evaluation (Moderate) Time Entry 53 PLAN Acute Care Plan: PT Plan: Skilled PT PT Frequency: Other (Comment) (BID) PT Discharge Recommendations: shelter facility placement Equipment Recommended: monae Encounter Problems Encounter Problems (Active) Template: Physical [...] a 79 y.o. female : 1945 MR#: [id number] SUBJECTIVE CC: Here after fall resulting in [...] Signed Date: 11/18/2024 06:58 ET Workstation ID: [id number] Transcribed By: Self Edit Transcribed Date: 11/18/2024 [...] the plan including MRI brain. * Cecelia Perez, PT - 11/18/2024 9:37 AM EST Physical Therapy Therapy session was attempted for Isabela Rios by Cecelia Perez PT on 11/18/2024. The patient was unable to be seen for the following reason(s): Out of room at a medical procedure Plan for return visit: As soon as possible * Kathleen Martins, OT - 11/18/2024 9:15 AM EST Therapy [...] oral regimen. She ahs been monitored in [facility] due to SDH. Seen by Neurosurgery pre-op [...] from the original note were not included. BATH PROGRESS NOTE Date: 11/17/2024 Author: Saundra Bucio MD Patient ID: Isabela Rios is a 79 y.o. female : 1945 MR#: [id number] SUBJECTIVE CC: Here after fall resulting in [...] at home and confirmed this, it is ojcv-iby-kzttkoc medication. Some abdominal discomfort was reported, mid [...] obtained following IV 90 mL Isovue-370. Scanner: [employer] 64 slice VCT Dose reduction technique: ASIR [...] Signed Date: 11/16/2024 10:45 ET Workstation ID: [id number] Transcribed By: Self Edit Transcribed Date: 11/16/2024 [...] Signed Date: 11/16/2024 07:11 ET Workstation ID: [id number] Transcribed By: Self Edit Transcribed Date: 11/16/2024 [...] length discrepancy Plan: Left hip hemiarthroplasty SAIMA Hetser MD * Shana Gomez RD - 11/17/2024 [...] Ordered 11/17/24 0001 Adult NPO diet Location: [facility]; Diet: NPO- Except for Medications Diet effective midnight Question Answer Comment Location [facility] Diet NPO- Except for Medications 11/16/24 [...] (increased her walking, cut back ). Appetite LIME PLANT OPERATOR: Good Intake LIME PLANT OPERATOR: Stable Vitamins/Minerals/Herbs: one a day type multivitamin [...] were not included. SELAM PROGRESS NOTE Date: 11/16/2024 Author: Bhavin Garcia MD Patient ID: Isabela Rios is a 79 y.o. female : 1945 MR#: [id number] SUBJECTIVE Follow up: SDH, L hip fx, encephalopathy Events noted Found to have low SpO2 reading 85% earlier this AM. Placed on O2 by NC Prior to this, appears got lorazepam for [...] Lying Pulse: 83 82 81 85 Resp: 18 16 18 18 Temp: 36.6 ??C (97.8 ??F) 37.1 ??C [...] Awake, alert, some word finding difficulties. Place: [facility] year. Month November Neurological: No localizing weakness. Range of [...] obtained following IV 90 mL Isovue-370. Scanner: Bizdom 64 slice VCT Dose reduction technique: ASIR [...] Signed Date: 11/16/2024 10:45 ET Workstation ID: [id number] Transcribed By: Self Edit Transcribed Date: 11/16/2024 [...] Signed Date: 11/16/2024 07:11 ET Workstation ID: [id number] Transcribed By: Self Edit Transcribed Date: 11/16/2024 [...] repair tomorrow S/p Fall Reported hx falls LIME PLANT OPERATOR. Etiology? Acute encephalopathy Dysarthria Cognitive decline Suspect [...] 10:45 AM EST Patient returned from CT, monitor tech placed. * Ruth Ibrahim RN - 11/16/2024 7:30 AM EST Attempt to place patient on monitor tech, pt continuing to remove. * Petar Catherine [...] 4:23 AM EST Patient continuing to remove monitor tech every time it is replaced. 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 Yes Initial Assessment Notices: Patient choice given. VAL: Unable to determine Barriers to progression of care/discharge: Sitter; left hip surgery 11/16/2023; s/p fall with subdural hematoma; pain management; PT evaluation Plan Dispo: In [facility]: [facility] [place]/[address] [place] [address] Referral/Auth status: Placed 11/16 pending Support Persons and Availability: Lives with spouse; supportive daughter lives in [place] Transportation: Ambulance vs stretcher Current/Prior Services/DME: Used no DME Home/Living situation: One level with two steps to entry / status: No If DC to home, readily able to access: Yes Readmission: No Therapy Eval: Pending Covid Vacc: Yes Last BM: ? HCP: No...confused 11/16/2023 Pharmacy: [place], [place] * FRANCES Herrera - 11/15/2024 1:27 [...] and coronal images of brainwere obtained. Scanner: Bizdom 64 slice VCT Dose reduction technique: ASIR (Adaptive statistical iterative reconstruction) and/or AEC (automated exposure control) Dose: total exam DLP 900 mGy/cm. FINDINGS: Again visualized is a right frontoparietal subdural hematoma with a maximum thickness of [address] image /. It is the same size as noted [...] Signed Date: 11/15/2024 08:30 ET Workstation ID: [id number] Transcribed By: Self Edit Transcribed Date: 11/15/2024 [...] a 79 y.o. female : 1945 MR#: [id number] SUBJECTIVE Follow up: SDH, L hip fx, [...] and coronal images of brainwere obtained. Scanner: Bizdom 64 slice VCT Dose reduction technique: ASIR [...] Signed Date: 11/15/2024 08:30 ET Workstation ID: [id number] Transcribed By: Self Edit Transcribed Date: 11/15/2024 [...] note were not included. Speech Language Pathology [facility] HEALTH/SAFETY JOB TITLES BEDSIDE SWALLOW EVALUATION NAME: Isabela Rios DATE OF : 1945 ROOM: 205/205-1 HEALTH/SAFETY JOB TITLES Received On: 11/15/24 Transcription Manager Required: No TIME IN: 1115 TIME OUT: [...] Closed fracture of left hip, initial encounter ([facility]) [S72.002A] No admission procedures for hospital encounter. [...] and coronal images of brainwere obtained. Scanner: Bizdom 64 slice VCT Dose reduction technique: ASIR [...] Signed Date: 11/15/2024 08:30 ET Workstation ID: [id number] Transcribed By: Self Edit Transcribed Date: 11/15/2024 [...] Signed Date: 11/14/2024 11:08 ET Workstation ID: [id number] Transcribed By: Self Edit Transcribed Date: 11/14/2024 [...] Medication Administration: One pill at a time HEALTH/SAFETY JOB TITLES ASSESSMENT: HEALTH/SAFETY JOB TITLES Assessment Results: At baseline, Within functional limits Dysphagia Diagnosis: Within Functional Limits Evaluation/Treatment Tolerance: Patient tolerated treatment well Medical Staff Made Aware: Yes Comments: Disucessed w/ RN and message sent to MD CURRENT DIET: Dietary Orders (From admission, onward) Start Ordered 11/16/24 0001 Adult NPO diet Location: [facility]; Diet: NPO- Except for Medications Diet effective now Question Answer Comment Location [facility] Diet NPO- Except for Medications 11/14/24 1442 11/16/24 0001 Adult NPO diet Location: [facility]; Diet: NPO- Except for Medications Diet effective midnight Question Answer Comment Location [facility] Diet NPO- Except for Medications 11/15/24 1036 11/15/24 1236 Adult diet [facility]; General, Modified Consistency Options for Liquids and Solids; Regular; IDDSI Level 7 Easy to Chew Diet effective now Question Answer Comment Location [facility] Diet Type (req) General Diet Type (req) Modified Consistency Options for Liquids and Solids General Diet Regular Modified Consistency Options for Liquids and Solids IDDSI Level 7 Easy to Chew 11/15/24 1235 PLAN OF CARE HEALTH/SAFETY JOB TITLES PLAN HEALTH/SAFETY JOB TITLES Plan: No skilled HEALTH/SAFETY JOB TITLES No Skilled HEALTH/SAFETY JOB TITLES: Independent with swallowing HEALTH/SAFETY JOB TITLES - Evaluation Status: Complete HEALTH/SAFETY JOB TITLES Discharge Recommendations: Home independent Diet Recommendations: IDDSI 7/0, regular and thin liquids DISCHARGE RECOMMENDATIONS No Speech-Language Pathology (HEALTH/SAFETY JOB TITLES) services/needs at next level of care. EDUCATION [...] EST I attest that I, Kathleen Delacruz M.S.,[facility]-HEALTH/SAFETY JOB TITLES, was physically involved in the ongoing assessment, [...] Procedure Abnormality Status --------- ------ CBC auto differential[[id number]] Abnormal Final result Please view results for these tests on the individual orders. URINALYSIS WITH REFLEX MICROSCOPIC AND CULTURE Narrative: The following orders were created for panel order Urinalysis with reflex microscopic and culture. Procedure Abnormality Status --------- ------ Urinalysis with reflex ...[[id number]] Estrada urine culture tube[[id number]] Please view results for these tests on [...] Signed Date: 11/14/2024 11:08 ET Workstation ID: [id number] Transcribed By: Self Edit Transcribed Date: 11/14/2024 11:05 ET XR Chest 1 View Final Result No acute findings. -------- FINAL REPORT -------- Dictated By: Vinayak Austin Dictated Date: 11/14/2024 11:08 ET Assigned Physician: Vinayak Austin Reviewed and Electronically Signed By: Vinayak Austin Signed Date: 11/14/2024 11:08 ET Workstation ID: [id number] Transcribed By: Self Edit Transcribed Date: 11/14/2024 11:[address] Head wo Contrast Final Result 8 mm subdural hematoma along the right convexity. -------- FINAL REPORT -------- Dictated By: Vinayak Austin Dictated Date: 11/14/2024 10:30 ET Assigned Physician: Vinayak Austin Reviewed and Electronically Signed By: Vinayak Austin Signed Date: 11/14/2024 10:36 ET Workstation ID: [id number] Transcribed By: Self Edit Transcribed Date: 11/14/2024 [...] was ordered. [] ED Course User Index [] FRANCES George Clinical Impressions as of 11/14/24 1205 Subdural hematoma (CMS/HCC) Closed fracture of left hip, initial encounter ([facility]) Differential to include ICH, concussion, contusion, left [...] Closed fracture of left hip, initial encounter ([facility]) Disposition Admit to Inpatient ED Prescriptions None Physician Attestation FRANCES George 11/14/24 1994 This is a split/shared visit with FRANCES [...] Please contact author [Demarcus Villalobos MD] via [facility]. Patient: Isabela Rios Admission Date/Time: 11/14/2024 9:22 AM : 1945 [79 y.o.] Patient's PCP: Garcia Doran MD Attending Provider: Román Guzman MD;Ca* CHIEF COMPLAINT Found on the floor HISTORY OF PRESENT ILLNESS This is s 79-year-old former smoker woman with past medical history significant for hypertension, dyslipidemia, hypothyroidism, osteopenia, depression and anxiety was brought to [facility] ED after her found her around 3 [...] Signed Date: 11/14/2024 14:51 ET Workstation ID: [id number] Transcribed By: Self Edit Transcribed Date: 11/14/2024 14:[address] Lower Extremity wo Contrast Left Final Result Impacted and angulated left femoral neck fracture -------- FINAL REPORT -------- Dictated By: KYLER BARRERA Dictated Date: 11/14/2024 12:26 ET Assigned Physician: KYLER BARRERA Reviewed and Electronically Signed By: KYLER BARRERA Signed Date: 11/14/2024 12:30 ET Workstation ID: [id number] Transcribed By: Self Edit Transcribed Date: 11/14/2024 12:26 ET XR Hip 2-3 Views Left Final Result Acute transcervical femoral neck fracture. -------- FINAL REPORT -------- Dictated By: Vinayak Austin Dictated Date: 11/14/2024 11:05 ET Assigned Physician: Vinayak Austin Reviewed and Electronically Signed By: Vinayak Austin Signed Date: 11/14/2024 11:08 ET Workstation ID: [id number] Transcribed By: Self Edit Transcribed Date: 11/14/2024 11:05 ET XR Chest 1 View Final Result No acute findings. -------- FINAL REPORT -------- Dictated By: Vinayak Austin Dictated Date: 11/14/2024 11:08 ET Assigned Physician: Vinayak Austin Reviewed and Electronically Signed By: Vinayak Austin Signed Date: 11/14/2024 11:08 ET Workstation ID: [id number] Transcribed By: Self Edit Transcribed Date: 11/14/2024 11:[address] Head wo Contrast Final Result 8 mm subdural hematoma along the right convexity. -------- FINAL REPORT -------- Dictated By: Vinayak Austin Dictated Date: 11/14/2024 10:30 ET Assigned Physician: Vinayak Austin Reviewed and Electronically Signed By: Vinayak Austin Signed Date: 11/14/2024 10:36 ET Workstation ID: [id number] Transcribed By: Self Edit Transcribed Date: 11/14/2024 [...] sedatives at this point Will get constant reconciliation analyst May use soft restraints, too 5. Dysarthria [...] reconciliation Health Care proxy: Tucker Rios (): [phone] documented in this encounter Procedure Notes * [...] EST ORTHOPEDIC OPERATIVE REPORT Date of procedure: Sunday, 17 November 2024 Preop diagnosis: Left hip, femoral neck fracture Postop diagnosis: Left hip, femoral neck fracture Procedure: Left hip, hemiarthroplasty (posterior approach, cemented) Surgeon: SAIMA Hester MD dietary assistant: Juan Luis Larsen MD Anesthesia: GETA [...] the position and minimize likelihoodof varus alignment [place] canal was broached with sequential sizes Size [...] awake and alert. She was oriented to [facility], [facility], and the year 2024. She could [...] This Visit None Visit Diagnoses Subdural hematoma ([facility]) - Primary Closed fracture of left hip, initial encounter ([facility]) Thank you for allowing us to care for your patient. FRANCES Herrera on 11/14/2024 at 7:17 PM EST CC: No ref. provider found Garcia Droan MD [facility] [place] * FRANCES Arnold - 11/14/2024 2:50 PM [...] (MULTIPLE VITAMINS ORAL) Take by mouth. Historical ProviderMD Review of systems ROS: unable to be [...] Signed Date: 11/14/2024 12:30 ET Workstation ID: [id number] Transcribed By: Self Edit Transcribed Date: 11/14/2024 [...] Signed Date: 11/14/2024 11:08 ET Workstation ID: [id number] Transcribed By: Self Edit Transcribed Date: 11/14/2024 [...] Signed Date: 11/14/2024 11:08 ET Workstation ID: [id number] Transcribed By: Self Edit Transcribed Date: 11/14/2024 [...] Signed Date: 11/14/2024 10:36 ET Workstation ID: [id number] Transcribed By: Self Edit Transcribed Date: 11/14/2024 [...] 80 Q-T Interval 430 QTc 495 R Homer 31 T Homer -53 ECG Interpretation Normal sinus rhythm Nonspecific [...] Info) Description 12/05/2024 10:45 AM EST Appointment [facility] CT Scan [address] [place] [phone] 12/05/2024 11:15 AM EST Office Visit Neurosurgery [place] [address] [facility] [address] [place] [phone] Ashley Davis PA [address] [facility], [facility] [address] [place] [address] 03/06/2025 11:30 AM EDT 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 Visit 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 Extractor Operator [facility] [address] [place] [phone] Garcia Doran MD [address] [place] [address] documented as of this encounter Procedures Procedure [...] requiring operative repair, left, closed, initial encounter ([facility]) CA HEMIARTHROPLASTY HIP PARTIAL 11/17/2024 12:14 PM EST Hip fracture requiring operative repair, left, closed, initial encounter ([facility]) Case Notes c arm, implants, lateral position [...] ECG 12-LEAD Routine 11/14/2024 9:41 AM EST CA CRITICAL CARE EACH ADDITIONAL 30 MINUTES Routine 11/14/2024 9:21 AM EST CA CRITICAL CARE EACH ADDITIONAL 30 MINUTES Routine 11/14/2024 9:21 AM EST CA CRITICAL CARE EACH ADDITIONAL 30 MINUTES Routine 11/14/2024 9:21 AM EST documented in this encounter Results * (ABNORMAL) Complete blood count (11/26/2024 5:49 AM EST) [facility] WBC 8.6 4.8 - 10.8 K/mcL LAB HEMETOLOGY METHOD 11/26/2024 6:52 AM EST [facility] RBC 2.50(L) 3.80 - 4.80 M/[facility] LAB HEMETOLOGY METHOD 11/26/2024 6:52 AM EST [facility] Hemoglobin 7.8(L) 11.5 - 16.0 g/dL LAB HEMETOLOGY METHOD 11/26/2024 6:52 AM EST [facility] LAB Hematocrit 25.0(L) 35.0 - 47.0 % LAB HEMETOLOGY METHOD 11/26/2024 6:52 AM EST [facility] LAB MCV 98.8(H) 79.0 - 98.0 FL LAB HEMETOLOGY METHOD 11/26/2024 6:52 AM EST [facility] LAB MCH 30.8 27.0 - 32.0 pcg LAB HEMETOLOGY METHOD 11/26/2024 6:52 AM EST [facility] LAB MCHC 31.2(L) 32.0 - 37.0 g/dL LAB HEMETOLOGY METHOD 11/26/2024 6:52 AM EST [facility] RDW 16.2(H) 11.0 - 15.0 % LAB HEMETOLOGY METHOD 11/26/2024 6:52 AM [facility] Platelets 478(H) 130 - 400 K/mcL LAB HEMETOLOGY METHOD 11/26/2024 6:52 AM EST [facility] LAB MPV 9.2 7.0 - 11.0 FL LAB HEMETOLOGY METHOD 11/26/2024 6:52 AM EST [facility] NRBC 0.0 <1.0 % LAB HEMETOLOGY METHOD 11/26/2024 6:52 AM [facility] NRBC Absolute 0.00 <0.10 K/mcL LAB HEMETOLOGY METHOD 11/26/2024 6:52 AM EST [facility] Blood Venous blood specimen / Unknown Venipuncture / Unknown 11/26/2024 5:49 AM EST 11/26/2024 6:33 AM EST Jaz DANIELS LAB BLOOD ORDERABLES [facility] [address] [place] [address], * Basic metabolic panel (11/26/2024 5:49 AM EST) Sodium 138 133 - 145 mmol/L LAB CHEMISTRY METHOD 11/26/2024 7:10 AM [facility] Potassium 4.5 3.5 - 5.5 mmol/L LAB CHEMISTRY METHOD 11/26/2024 7:10 AM [facility] Chloride 105 96 - 110 mmol/L LAB CHEMISTRY METHOD 11/26/2024 7:10 AM [facility] CO2 29 21 - 32 [...] AM EST Jaz DANIELS LAB BLOOD ORDERABLES [facility] [address] [place] [address], * (ABNORMAL) Complete blood count (11/25/2024 6:59 AM EST) [facility] WBC 9.7 4.8 - 10.8 K/mcL LAB HEMETOLOGY METHOD 11/25/2024 8:05 AM [facility] RBC 2.70(L) 3.80 - 4.80 M/mcL LAB HEMETOLOGY METHOD 11/25/2024 8:05 AM [facility] Hemoglobin 8.1(L) 11.5 - 16.0 g/dL LAB HEMETOLOGY METHOD 11/25/2024 8:05 AM [facility] Hematocrit 25.6(L) 35.0 - 47.0 % LAB HEMETOLOGY METHOD 11/25/2024 8:05 AM [facility] MCV 95.9 79.0 - 98.0 FL LAB HEMETOLOGY METHOD 11/25/2024 8:05 AM [facility] MCH 30.3 27.0 - 32.0 pcg LAB HEMETOLOGY METHOD 11/25/2024 8:05 AM [facility] MCHC 31.6(L) 32.0 - 37.0 g/dL LAB HEMETOLOGY METHOD 11/25/2024 8:05 AM [facility] RDW 15.9(H) 11.0 - 15.0 % LAB HEMETOLOGY METHOD 11/25/2024 8:05 AM [facility] Platelets 437(H) 130 - 400 K/mcL LAB HEMETOLOGY METHOD 11/25/2024 8:05 AM [facility] MPV 9.3 7.0 - 11.0 FL LAB HEMETOLOGY METHOD 11/25/2024 8:05 AM [facility] NRBC 0.0 <1.0 % LAB HEMETOLOGY METHOD 11/25/2024 8:05 AM EST [facility] NRBC Absolute 0.00 <0.10 K/mcL LAB HEMETOLOGY METHOD 11/25/2024 8:05 AM [facility] Blood Venous blood specimen / Unknown Venipuncture / Unknown 11/25/2024 6:59 AM EST 11/25/2024 7:47 AM EST Jaz DANIELS LAB BLOOD ORDERABLES [facility] [address] [place] [address], * (ABNORMAL) Basic metabolic panel (11/25/2024 6:59 AM EST) Sodium 136 133 - 145 mmol/L LAB CHEMISTRY METHOD 11/25/2024 8:47 AM [facility] Potassium 4.4 3.5 - 5.5 mmol/L LAB CHEMISTRY METHOD 11/25/2024 8:47 AM [facility] Chloride 104 96 - 110 mmol/L LAB CHEMISTRY METHOD 11/25/2024 8:47 AM [facility] CO2 30 21 - 32 mmol/L LAB CHEMISTRY METHOD 11/25/2024 8:47 AM [facility] Anion Gap 2(L) 3 - 11 LAB CHEMISTRY METHOD 11/25/2024 8:47 AM [facility] Glucose 95 70 - 100 mg/dL LAB CHEMISTRY METHOD 11/25/2024 8:47 AM [facility] BUN 16 5 - 25 mg/dL LAB CHEMISTRY METHOD 11/25/2024 8:47 AM [facility] Creatinine 0.75 0.50 - 1.10 mg/dL LAB CHEMISTRY METHOD 11/25/2024 8:47 AM [facility] eGFR 82 >=60 mL/min/1. 73m2 LAB CHEMISTRY METHOD 11/25/2024 8:47 AM EST [facility] Comment:Calculation based on the??Chronic Kidney Disease Epidemiology Collaboration (CKD-EPI) equation refit??without adjustment for race. BUN/Creatinine Ratio 21.3 LAB CHEMISTRY METHOD 11/25/2024 8:47 AM [facility] Calcium 8.8 8.5 - 10.5 mg/dL LAB CHEMISTRY METHOD 11/25/2024 8:47 AM [facility] Blood Venous blood specimen / Unknown Venipuncture / Unknown 11/25/2024 6:59 AM EST 11/25/2024 7:36 AM EST Jaz DANIELS LAB BLOOD ORDERABLES [facility] [address] [place] [address], * (ABNORMAL) Complete blood count (11/24/2024 6:24 AM EST) WBC 8.1 4.8 - 10.8 K/mcL LAB HEMETOLOGY METHOD 11/24/2024 7:31 AM [facility] RBC 2.80(L) 3.80 - 4.80 M/mcL LAB HEMETOLOGY METHOD 11/24/2024 7:31 AM [facility] Hemoglobin 8.8(L) 11.5 - 16.0 g/dL LAB HEMETOLOGY METHOD 11/24/2024 7:31 AM [facility] Hematocrit 26.9(L) 35.0 - 47.0 % LAB HEMETOLOGY METHOD 11/24/2024 7:31 AM [facility] MCV 96.1 79.0 - 98.0 FL LAB HEMETOLOGY METHOD 11/24/2024 7:31 AM [facility] MCH 31.4 27.0 - 32.0 pcg LAB HEMETOLOGY METHOD 11/24/2024 7:31 AM [facility] MCHC 32.7 32.0 - 37.0 g/dL LAB HEMETOLOGY METHOD 11/24/2024 7:31 AM EST [facility] RDW 15.4(H) 11.0 - 15.0 % LAB HEMETOLOGY METHOD 11/24/2024 7:31 AM [facility] Platelets 389 130 - 400 K/mcL LAB HEMETOLOGY METHOD 11/24/2024 7:31 AM EST [facility] MPV 9.2 7.0 - 11.0 FL LAB HEMETOLOGY METHOD 11/24/2024 7:31 AM [facility] NRBC 0.2 <1.0 % LAB HEMETOLOGY METHOD 11/24/2024 7:31 AM [facility] NRBC Absolute 0.02 <0.10 K/mcL LAB HEMETOLOGY METHOD 11/24/2024 7:31 AM [facility] Blood Venous blood specimen / Unknown Venipuncture / Unknown 11/24/2024 6:24 AM EST 11/24/2024 6:48 AM EST Jaz DANIELS LAB BLOOD ORDERABLES [facility] [address] [place] [address], * (ABNORMAL) Basic metabolic panel (11/24/2024 6:24 AM EST) Sodium 138 133 - 145 mmol/L LAB CHEMISTRY METHOD 11/24/2024 8:12 AM EST [facility] Potassium 4.1 3.5 - 5.5 mmol/L LAB CHEMISTRY METHOD 11/24/2024 8:12 AM [facility] Chloride 105 96 - 110 mmol/L LAB CHEMISTRY METHOD 11/24/2024 8:12 AM EST [facility] CO2 30 21 - 32 mmol/L LAB CHEMISTRY METHOD 11/24/2024 8:12 AM [facility] Anion Gap 3 3 - 11 LAB CHEMISTRY METHOD 11/24/2024 8:12 AM [facility] Glucose 101(H) 70 - 100 mg/dL LAB CHEMISTRY METHOD 11/24/2024 8:12 AM [facility] BUN 16 5 - 25 mg/dL LAB CHEMISTRY METHOD 11/24/2024 8:12 AM [facility] Creatinine 0.77 0.50 - 1.10 mg/dL LAB CHEMISTRY METHOD 11/24/2024 8:12 AM [facility] eGFR 80 >=60 mL/min/1. 73m2 LAB CHEMISTRY METHOD 11/24/2024 8:12 AM [facility] Comment:Calculation based on the??Chronic Kidney Disease Epidemiology Collaboration (CKD-EPI) equation refit??without adjustment for race. BUN/Creatinine Ratio 20.8 LAB CHEMISTRY METHOD 11/24/2024 8:12 AM [facility] Calcium 8.8 8.5 - 10.5 mg/dL LAB CHEMISTRY METHOD 11/24/2024 8:12 AM [facility] Blood Venous blood specimen / Unknown Venipuncture / Unknown 11/24/2024 6:24 AM EST 11/24/2024 6:48 AM EST Jaz DANIELS LAB BLOOD ORDERABLES [facility] [address] [place] [address], * (ABNORMAL) Complete blood count (11/23/2024 6:25 AM EST) WBC 9.4 4.8 - 10.8 K/mcL LAB HEMETOLOGY METHOD 11/23/2024 7:28 AM EST [facility] RBC 2.80(L) 3.80 - 4.80 M/mcL LAB HEMETOLOGY METHOD 11/23/2024 7:28 AM [facility] Hemoglobin 8.7(L) 11.5 - 16.0 g/dL LAB HEMETOLOGY METHOD 11/23/2024 7:28 AM [facility] Hematocrit 27.2(L) 35.0 - 47.0 % LAB HEMETOLOGY METHOD 11/23/2024 7:28 AM [facility] MCV 96.5 79.0 - 98.0 FL LAB HEMETOLOGY METHOD 11/23/2024 7:28 AM [facility] MCH 30.9 27.0 - 32.0 pcg LAB HEMETOLOGY METHOD 11/23/2024 7:28 AM [facility] MCHC 32.0 32.0 - 37.0 g/dL LAB HEMETOLOGY METHOD 11/23/2024 7:28 AM [facility] RDW 15.3(H) 11.0 - 15.0 % LAB HEMETOLOGY METHOD 11/23/2024 7:28 AM [facility] Platelets 345 130 - 400 K/mcL LAB HEMETOLOGY METHOD 11/23/2024 7:28 AM [facility] MPV 9.6 7.0 - 11.0 FL LAB HEMETOLOGY METHOD 11/23/2024 7:28 AM [facility] NRBC 0.0 <1.0 % LAB HEMETOLOGY METHOD 11/23/2024 7:28 AM [facility] NRBC Absolute 0.00 <0.10 K/mcL LAB HEMETOLOGY METHOD 11/23/2024 7:28 AM [facility] Blood Venous blood specimen / Unknown Venipuncture / Unknown 11/23/2024 6:25 AM EST 11/23/2024 7:04 AM EST Jaz DANIELS LAB BLOOD ORDERABLES [facility] [address] [place] [address], * Basic metabolic panel (11/23/2024 6:25 AM EST) Sodium 139 133 - 145 mmol/L LAB CHEMISTRY METHOD 11/23/2024 7:38 AM [facility] Potassium 4.2 3.5 - 5.5 mmol/L LAB CHEMISTRY METHOD 11/23/2024 7:38 AM [facility] Chloride 106 96 - 110 mmol/L LAB CHEMISTRY METHOD 11/23/2024 7:38 AM [facility] CO2 29 21 - 32 mmol/L LAB CHEMISTRY METHOD 11/23/2024 7:38 AM [facility] Anion Gap 4 3 - 11 LAB CHEMISTRY METHOD 11/23/2024 7:38 AM [facility] Glucose 89 70 - 100 mg/dL LAB CHEMISTRY METHOD 11/23/2024 7:38 AM [facility] BUN 15 5 - 25 mg/dL LAB CHEMISTRY METHOD 11/23/2024 7:38 AM [facility] Creatinine 0.64 0.50 - 1.10 mg/dL LAB CHEMISTRY METHOD 11/23/2024 7:38 AM [facility] eGFR 91 >=60 mL/min/1. 73m2 LAB CHEMISTRY METHOD 11/23/2024 7:38 AM [facility] Comment:Calculation based on the??Chronic Kidney Disease Epidemiology Collaboration (CKD-EPI) equation refit??without adjustment for race. BUN/Creatinine Ratio 23.4 LAB CHEMISTRY METHOD 11/23/2024 7:38 AM [facility] Calcium 8.9 8.5 - 10.5 mg/dL LAB CHEMISTRY METHOD 11/23/2024 7:38 AM [facility] Blood Venous blood specimen / Unknown Venipuncture / Unknown 11/23/2024 6:25 AM EST 11/23/2024 7:04 AM EST Jaz DANIELS LAB BLOOD ORDERABLES [facility] [address] [place] [address], * (ABNORMAL) Complete blood count (11/22/2024 6:37 AM EST) WBC 8.6 4.8 - 10.8 K/mcL LAB HEMETOLOGY METHOD 11/22/2024 7:20 AM EST [facility] RBC 2.70(L) 3.80 - 4.80 M/mcL LAB HEMETOLOGY METHOD 11/22/2024 7:20 AM [facility] Hemoglobin 8.3(L) 11.5 - 16.0 g/dL LAB HEMETOLOGY METHOD 11/22/2024 7:20 AM [facility] Hematocrit 25.9(L) 35.0 - 47.0 % LAB HEMETOLOGY METHOD 11/22/2024 7:20 AM [facility] MCV 96.6 79.0 - 98.0 FL LAB HEMETOLOGY METHOD 11/22/2024 7:20 AM [facility] MCH 31.0 27.0 - 32.0 pcg LAB HEMETOLOGY METHOD 11/22/2024 7:20 AM [facility] MCHC 32.0 32.0 - 37.0 g/dL LAB HEMETOLOGY METHOD 11/22/2024 7:20 AM [facility] RDW 15.0 11.0 - 15.0 % LAB HEMETOLOGY METHOD 11/22/2024 7:20 AM [facility] Platelets 273 130 - 400 K/mcL LAB HEMETOLOGY METHOD 11/22/2024 7:20 AM [facility] MPV 9.3 7.0 - 11.0 FL LAB HEMETOLOGY METHOD 11/22/2024 7:20 AM EST [facility] NRBC 0.0 <1.0 % LAB HEMETOLOGY METHOD 11/22/2024 7:20 AM EST [facility] NRBC Absolute 0.00 <0.10 K/mcL LAB HEMETOLOGY METHOD 11/22/2024 7:20 AM EST [facility] Blood Venous blood specimen / Unknown Venipuncture / Unknown 11/22/2024 6:37 AM EST 11/22/2024 7:01 AM EST Jaz DANIELS LAB BLOOD ORDERABLES [facility] [address] [place] [address], * (ABNORMAL) Basic metabolic panel (11/22/2024 6:37 AM EST) Sodium 139 133 - 145 mmol/L LAB CHEMISTRY METHOD 11/22/2024 8:17 AM [facility] Potassium 4.9 3.5 - 5.5 mmol/L LAB CHEMISTRY METHOD 11/22/2024 8:17 AM [facility] Chloride 106 96 - 110 mmol/L LAB CHEMISTRY METHOD 11/22/2024 8:17 AM [facility] CO2 31 21 - 32 mmol/L LAB CHEMISTRY METHOD 11/22/2024 8:17 AM [facility] Anion Gap 2(L) 3 - 11 LAB CHEMISTRY METHOD 11/22/2024 8:17 AM [facility] Glucose 98 70 - 100 mg/dL LAB CHEMISTRY METHOD 11/22/2024 8:17 AM [facility] BUN 17 5 - 25 mg/dL LAB CHEMISTRY METHOD 11/22/2024 8:17 AM [facility] Creatinine 0.64 0.50 - 1.10 mg/dL LAB CHEMISTRY METHOD 11/22/2024 8:17 AM EST [facility] eGFR 91 >=60 mL/min/1. 73m2 LAB CHEMISTRY METHOD 11/22/2024 8:17 AM EST [facility] Comment:Calculation based on the??Chronic Kidney Disease Epidemiology Collaboration (CKD-EPI) equation refit??without adjustment for race. BUN/Creatinine Ratio 26.6 LAB CHEMISTRY METHOD 11/22/2024 8:17 AM EST [facility] Calcium 8.5 8.5 - 10.5 mg/dL LAB CHEMISTRY METHOD 11/22/2024 8:17 AM EST [facility] Blood Venous blood specimen / Unknown Venipuncture / Unknown 11/22/2024 6:37 AM EST 11/22/2024 7:01 AM EST Jaz DANIELS LAB BLOOD ORDERABLES [facility] [address] [place] [address], * CT Head wo Contrast (11/21/2024 8:31 [...] Signed Date: 11/21/2024 08:46 ET Workstation ID: [id number] Transcribed By: Self Edit Transcribed Date: 11/21/2024 [...] Signed Date: 11/21/2024 08:46 ET Workstation ID: [id number] Transcribed By: Self Edit Transcribed Date: 11/21/2024 08:43 ET Janey DANIELS IMG CT PROCEDURES * (ABNORMAL) Complete blood count (11/21/2024 5:41 AM EST) WBC 8.4 4.8 - 10.8 K/mcL LAB HEMETOLOGY METHOD 11/21/2024 7:17 AM [facility] RBC 2.70(L) 3.80 - 4.80 M/mcL LAB HEMETOLOGY METHOD 11/21/2024 7:17 AM [facility] Hemoglobin 8.2(L) 11.5 - 16.0 g/dL LAB HEMETOLOGY METHOD 11/21/2024 7:17 AM [facility] Hematocrit 26.0(L) 35.0 - 47.0 % LAB HEMETOLOGY METHOD 11/21/2024 7:17 AM [facility] MCV 96.3 79.0 - 98.0 FL LAB HEMETOLOGY METHOD 11/21/2024 7:17 AM [facility] MCH 30.4 27.0 - 32.0 pcg LAB HEMETOLOGY METHOD 11/21/2024 7:17 AM [facility] MCHC 31.5(L) 32.0 - 37.0 g/dL LAB HEMETOLOGY METHOD 11/21/2024 7:17 AM [facility] RDW 15.2(H) 11.0 - 15.0 % LAB HEMETOLOGY METHOD 11/21/2024 7:17 AM [facility] Platelets 235 130 - 400 K/mcL LAB HEMETOLOGY METHOD 11/21/2024 7:17 AM [facility] MPV 9.8 7.0 - 11.0 FL LAB HEMETOLOGY METHOD 11/21/2024 7:17 AM [facility] NRBC 0.0 <1.0 % LAB HEMETOLOGY METHOD 11/21/2024 7:17 AM [facility] NRBC Absolute 0.00 <0.10 K/mcL LAB HEMETOLOGY METHOD 11/21/2024 7:17 AM [facility] Blood Venous blood specimen / Unknown Venipuncture / Unknown 11/21/2024 5:41 AM EST 11/21/2024 6:25 AM EST Jaz DANIELS LAB BLOOD ORDERABLES [facility] [address] [place] [address], * (ABNORMAL) Basic metabolic panel (11/21/2024 5:41 AM EST) Sodium 138 133 - 145 mmol/L LAB CHEMISTRY METHOD 11/21/2024 7:13 AM [facility] Potassium 4.0 3.5 - 5.5 mmol/L LAB CHEMISTRY METHOD 11/21/2024 7:13 AM [facility] Chloride 104 96 - 110 mmol/L LAB CHEMISTRY METHOD 11/21/2024 7:13 AM [facility] CO2 29 21 - 32 mmol/L LAB CHEMISTRY METHOD 11/21/2024 7:13 AM [facility] Anion Gap 5 3 - 11 LAB CHEMISTRY METHOD 11/21/2024 7:13 AM [facility] Glucose 99 70 - 100 mg/dL LAB CHEMISTRY METHOD 11/21/2024 7:13 AM [facility] BUN 18 5 - 25 mg/dL LAB CHEMISTRY METHOD 11/21/2024 7:13 AM [facility] Creatinine 0.60 0.50 - 1.10 mg/dL LAB CHEMISTRY METHOD 11/21/2024 7:13 AM [facility] eGFR 93 >=60 mL/min/1. 73m2 LAB CHEMISTRY METHOD 11/21/2024 7:13 AM [facility] Comment:Calculation based on the??Chronic Kidney Disease Epidemiology Collaboration (CKD-EPI) equation refit??without adjustment for race. BUN/Creatinine Ratio 30.0 LAB CHEMISTRY METHOD 11/21/2024 7:13 AM [facility] Calcium 8.1(L) 8.5 - 10.5 mg/dL LAB CHEMISTRY METHOD 11/21/2024 7:13 AM [facility] Blood Venous blood specimen / Unknown Venipuncture / Unknown 11/21/2024 5:41 AM EST 11/21/2024 6:25 AM EST Jaz DANIELS LAB BLOOD ORDERABLES [facility] [address] [place] [address], * (ABNORMAL) Complete blood count (11/20/2024 6:09 AM EST) WBC 7.6 4.8 - 10.8 K/mcL LAB HEMETOLOGY METHOD 11/20/2024 7:53 AM [facility] RBC 2.70(L) 3.80 - 4.80 M/[facility] LAB HEMETOLOGY METHOD 11/20/2024 7:53 AM [facility] Hemoglobin 8.3(L) 11.5 - 16.0 g/dL LAB HEMETOLOGY METHOD 11/20/2024 7:53 AM [facility] Hematocrit 26.4(L) 35.0 - 47.0 % LAB HEMETOLOGY METHOD 11/20/2024 7:53 AM [facility] MCV 97.8 79.0 - 98.0 FL LAB HEMETOLOGY METHOD 11/20/2024 7:53 AM [facility] MCH 30.7 27.0 - 32.0 pcg LAB HEMETOLOGY METHOD 11/20/2024 7:53 AM [facility] MCHC 31.4(L) 32.0 - 37.0 g/dL LAB HEMETOLOGY METHOD 11/20/2024 7:53 AM [facility] RDW 15.4(H) 11.0 - 15.0 % LAB HEMETOLOGY METHOD 11/20/2024 7:53 AM EST [facility] Platelets 195 130 - 400 K/mcL LAB HEMETOLOGY METHOD 11/20/2024 7:53 AM [facility] MPV 10.1 7.0 - 11.0 FL LAB HEMETOLOGY METHOD 11/20/2024 7:53 AM EST [facility] NRBC 0.0 <1.0 % LAB HEMETOLOGY METHOD 11/20/2024 7:53 AM [facility] NRBC Absolute 0.00 <0.10 K/mcL LAB HEMETOLOGY METHOD 11/20/2024 7:53 AM [facility] Blood Venous blood specimen / Unknown Venipuncture / Unknown 11/20/2024 6:09 AM EST 11/20/2024 7:28 AM EST Jaz DANIELS LAB BLOOD ORDERABLES [facility] [address] [place] [address], * (ABNORMAL) Basic metabolic panel (11/20/2024 6:09 AM EST) Sodium 138 133 - 145 mmol/L LAB CHEMISTRY METHOD 11/20/2024 8:32 AM [facility] Potassium 4.1 3.5 - 5.5 mmol/L LAB CHEMISTRY METHOD 11/20/2024 8:32 AM [facility] Chloride 106 96 - 110 mmol/L LAB CHEMISTRY METHOD 11/20/2024 8:32 AM [facility] CO2 30 21 - 32 mmol/L LAB CHEMISTRY METHOD 11/20/2024 8:32 AM [facility] Anion Gap 2(L) 3 - 11 LAB CHEMISTRY METHOD 11/20/2024 8:32 AM [facility] Glucose 94 70 - 100 mg/dL LAB CHEMISTRY METHOD 11/20/2024 8:32 AM [facility] BUN 21 5 - 25 mg/dL LAB CHEMISTRY METHOD 11/20/2024 8:32 AM [facility] Creatinine 0.67 0.50 - 1.10 mg/dL LAB CHEMISTRY METHOD 11/20/2024 8:32 AM [facility] eGFR 90 >=60 mL/min/1. 73m2 LAB CHEMISTRY METHOD 11/20/2024 8:32 AM [facility] Comment:Calculation based on the??Chronic Kidney Disease Epidemiology Collaboration (CKD-EPI) equation refit??without adjustment for race. BUN/Creatinine Ratio 31.3 LAB CHEMISTRY METHOD 11/20/2024 8:32 AM [facility] Calcium 8.3(L) 8.5 - 10.5 mg/dL LAB CHEMISTRY METHOD 11/20/2024 8:32 AM [facility] Blood Venous blood specimen / Unknown Venipuncture / Unknown 11/20/2024 6:09 AM EST 11/20/2024 7:26 AM EST Jaz DANIELS LAB BLOOD ORDERABLES [facility] [address] [place] [address], * (ABNORMAL) Complete blood count (11/19/2024 6:01 AM EST) WBC 8.1 4.8 - 10.8 K/mcL LAB HEMETOLOGY METHOD 11/19/2024 7:06 AM [facility] RBC 2.70(L) 3.80 - 4.80 M/mcL LAB HEMETOLOGY METHOD 11/19/2024 7:06 AM [facility] Hemoglobin 8.3(L) 11.5 - 16.0 g/dL LAB HEMETOLOGY METHOD 11/19/2024 7:06 AM EST [facility] Hematocrit 25.8(L) 35.0 - 47.0 % LAB HEMETOLOGY METHOD 11/19/2024 7:06 AM [facility] MCV 95.2 79.0 - 98.0 FL LAB HEMETOLOGY METHOD 11/19/2024 7:06 AM [facility] MCH 30.6 27.0 - 32.0 pcg LAB HEMETOLOGY METHOD 11/19/2024 7:06 AM [facility] MCHC 32.2 32.0 - 37.0 g/dL LAB HEMETOLOGY METHOD 11/19/2024 7:06 AM [facility] RDW 15.6(H) 11.0 - 15.0 % LAB HEMETOLOGY METHOD 11/19/2024 7:06 AM [facility] Platelets 165 130 - 400 K/mcL LAB HEMETOLOGY METHOD 11/19/2024 7:06 AM [facility] MPV 10.4 7.0 - 11.0 FL LAB HEMETOLOGY METHOD 11/19/2024 7:06 AM [facility] NRBC 0.0 <1.0 % LAB HEMETOLOGY METHOD 11/19/2024 7:06 AM [facility] NRBC Absolute 0.00 <0.10 K/mcL LAB HEMETOLOGY METHOD 11/19/2024 7:06 AM [facility] Blood Venous blood specimen / Unknown Venipuncture / Unknown 11/19/2024 6:01 AM EST 11/19/2024 6:38 AM EST Jaz DANIELS LAB BLOOD ORDERABLES [facility] [address] [place] [address], * (ABNORMAL) Basic metabolic panel (11/19/2024 6:01 AM EST) Sodium 139 133 - 145 mmol/L LAB CHEMISTRY METHOD 11/19/2024 7:25 AM [facility] Potassium 4.0 3.5 - 5.5 mmol/L LAB CHEMISTRY METHOD 11/19/2024 7:25 AM [facility] Chloride 108 96 - 110 mmol/L LAB CHEMISTRY METHOD 11/19/2024 7:25 AM [facility] CO2 27 21 - 32 mmol/L LAB CHEMISTRY METHOD 11/19/2024 7:25 AM [facility] Anion Gap 4 3 - 11 LAB CHEMISTRY METHOD 11/19/2024 7:25 AM [facility] Glucose 97 70 - 100 mg/dL LAB CHEMISTRY METHOD 11/19/2024 7:25 AM [facility] BUN 25 5 - 25 mg/dL LAB CHEMISTRY METHOD 11/19/2024 7:25 AM [facility] Creatinine 0.71 0.50 - 1.10 mg/dL LAB CHEMISTRY METHOD 11/19/2024 7:25 AM [facility] eGFR 88 >=60 mL/min/1. 73m2 LAB CHEMISTRY METHOD 11/19/2024 7:25 AM [facility] Comment:Calculation based on the??Chronic Kidney Disease Epidemiology Collaboration (CKD-EPI) equation refit??without adjustment for race. BUN/Creatinine Ratio 35.2 LAB CHEMISTRY METHOD 11/19/2024 7:25 AM [facility] Calcium 8.1(L) 8.5 - 10.5 mg/dL LAB CHEMISTRY METHOD 11/19/2024 7:25 AM [facility] Blood Venous blood specimen / Unknown Venipuncture / Unknown 11/19/2024 6:01 AM EST 11/19/2024 6:37 AM EST Jaz DANIELS LAB BLOOD ORDERABLES [facility] [place] [facility] [address] [place] [address], * MR Brain wo Contrast (11/18/2024 7:01 [...] Signed Date: 11/18/2024 14:33 ET Workstation ID: [id number] Transcribed By: Self Edit Transcribed Date: 11/18/2024 [...] Signed Date: 11/18/2024 14:33 ET Workstation ID: [id number] Transcribed By: Self Edit Transcribed Date: 11/18/2024 14:[address] PROCEDURES * (ABNORMAL) TRANSTHORACIC ECHOCARDIOGRAM (TTE) [...] 76 mL CV PACS Left Atrium Minor Homer 5.3 cm CV PACS Left Atrium Major Homer 5.5 cm CV PACS LA Area Sys [...] Proximal 1.5 cm CV PACS MV Deceleration Sandoval 5.0 m/s2 CV PACS E Wave Deceleration [...] Complete blood count (11/18/2024 5:44 AM EST) WBC 8.2 4.8 - 10.8 K/mcL LAB HEMETOLOGY METHOD 11/18/2024 7:01 AM [facility] RBC 3.00(L) 3.80 - 4.80 M/mcL LAB HEMETOLOGY METHOD 11/18/2024 7:01 AM [facility] Hemoglobin 9.0(L) 11.5 - 16.0 g/dL LAB HEMETOLOGY METHOD 11/18/2024 7:01 AM [facility] Hematocrit 27.8(L) 35.0 - 47.0 % LAB HEMETOLOGY METHOD 11/18/2024 7:01 AM [facility] MCV 94.2 79.0 - 98.0 FL LAB HEMETOLOGY METHOD 11/18/2024 7:01 AM [facility] MCH 30.5 27.0 - 32.0 pcg LAB HEMETOLOGY METHOD 11/18/2024 7:01 AM [facility] MCHC 32.4 32.0 - 37.0 g/dL LAB HEMETOLOGY METHOD 11/18/2024 7:01 AM [facility] RDW 15.6(H) 11.0 - 15.0 % LAB HEMETOLOGY METHOD 11/18/2024 7:01 AM [facility] Platelets 158 130 - 400 K/mcL LAB HEMETOLOGY METHOD 11/18/2024 7:01 AM [facility] MPV 10.6 7.0 - 11.0 FL LAB HEMETOLOGY METHOD 11/18/2024 7:01 AM [facility] NRBC 0.0 <1.0 % LAB HEMETOLOGY METHOD 11/18/2024 7:01 AM EST [facility] NRBC Absolute 0.00 <0.10 K/mcL LAB HEMETOLOGY METHOD 11/18/2024 7:01 AM [facility] Blood Venous blood specimen / Unknown Venipuncture / Unknown 11/18/2024 5:44 AM EST 11/18/2024 6:15 AM EST Jaz DANIELS LAB BLOOD ORDERABLES [facility] [address] [place] [address], * (ABNORMAL) Basic metabolic panel (11/18/2024 5:44 AM EST) Sodium 140 133 - 145 mmol/L LAB CHEMISTRY METHOD 11/18/2024 7:00 AM [facility] Potassium 4.7 3.5 - 5.5 mmol/L LAB CHEMISTRY METHOD 11/18/2024 7:00 AM [facility] Chloride 108 96 - 110 mmol/L LAB CHEMISTRY METHOD 11/18/2024 7:00 AM [facility] CO2 25 21 - 32 mmol/L LAB CHEMISTRY METHOD 11/18/2024 7:00 AM [facility] Anion Gap 7 3 - 11 LAB CHEMISTRY METHOD 11/18/2024 7:00 AM [facility] Glucose 119(H) 70 - 100 mg/dL LAB CHEMISTRY METHOD 11/18/2024 7:00 AM [facility] BUN 27(H) 5 - 25 mg/dL LAB CHEMISTRY METHOD 11/18/2024 7:00 AM [facility] Creatinine 0.89 0.50 - 1.10 mg/dL LAB CHEMISTRY METHOD 11/18/2024 7:00 AM [facility] eGFR 67 >=60 mL/min/1. 73m2 LAB CHEMISTRY METHOD 11/18/2024 7:00 AM [facility] Comment:Calculation based on the??Chronic Kidney Disease Epidemiology Collaboration (CKD-EPI) equation refit??without adjustment for race. BUN/Creatinine Ratio 30.3 LAB CHEMISTRY METHOD 11/18/2024 7:00 AM EST [facility] Calcium 8.4(L) 8.5 - 10.5 mg/dL LAB CHEMISTRY METHOD 11/18/2024 7:00 AM EST [facility] Blood Venous blood specimen / Unknown Venipuncture / Unknown 11/18/2024 5:44 AM EST 11/18/2024 6:15 AM EST Jaz DANIELS LAB BLOOD ORDERABLES [facility] [address] [place] [address], * XR Pelvis 1-2 Views (11/17/2024 4:41 PM EST) Anatomical Region Laterality Modality Body, Pelvis Radiographic Jalyn ging 11/17/2024 4:53 PM EST Impressions 11/17/2024 4:54 PM EST Impression: Postop left femoral endoprosthesis placement, with prosthesis appearing satisfactorily positioned. Teleyehuda DANIELS ([id number]) -------- FINAL REPORT -------- Dictated By: Muna Roblero Dictated Date: 11/17/2024 16:53 ET Assigned Physician: Muna Roblero Reviewed and Electronically Signed By: Muna Roblero Signed Date: 11/17/2024 16:54 ET Workstation ID: [id number] Transcribed By: Self Edit Transcribed Date: 11/17/2024 [...] placement, with prosthesis appearingsatisfactorily positioned. Teleyehuda DANIELS ([id number]) -------- FINAL REPORT -------- Dictated By: Muna Roblero Dictated Date: 11/17/2024 16:53 ET Assigned Physician: Muna Roblero Reviewed and Electronically Signed By: Muna Roblero Signed Date: 11/17/2024 16:54 ET Workstation ID: [id number] Transcribed By: Self Edit Transcribed Date: 11/17/2024 [...] Signed Date: 11/18/2024 06:58 ET Workstation ID: [id number] Transcribed By: Self Edit Transcribed Date: 11/18/2024 [...] Signed Date: 11/18/2024 06:58 ET Workstation ID: [id number] Transcribed By: Self Edit Transcribed Date: 11/18/2024 06:55 ET Elva Hester MD IMG XR PROCEDURES * Tissue exam (11/17/2024 1:17 PM EST) Final Diagnosis Bone, left femoral head: -CONSISTENT WITH FRACTURE 11/19/2024 10:45 AM EST [facility] Gross Description A. Bone, left [...] with some hemorrhage around the margin. A scheduling representative section is submitted in one cassette following decalcification, one piece CHECO 11/19/2024 10:45 AM [facility] Disclaimer Unless otherwise specified, all tissue is 10% NB formalin fixed and paraffin embedded. 11/19/2024 10:45 AM [facility] Bone Specimen from bone / Unknown 11/17/2024 1:17 PM EST 11/17/2024 3:55 PM EST Elva Hester MD LAB PATHOLOGY ORD ERABLES [facility] [address] [place] [address], * (ABNORMAL) CBC auto differential (11/17/2024 6:43 [...] LAB HEMETOLOGY METHOD 11/17/2024 7:26 AM EST [facility] Lymphocytes Absolute 0.85(L) 1.00 - 5.00 K/mcL LAB HEMETOLOGY METHOD 11/17/2024 7:26 AM EST [facility] Monocytes Absolute 0.72 0.20 - 1.00 K/mcL LAB HEMETOLOGY METHOD 11/17/2024 7:26 AM [facility] Eosinophils Absolute 0.32 0.00 - 0.50 K/[facility] LAB HEMETOLOGY METHOD 11/17/2024 7:26 AM EST [facility] Basophils Absolute 0.02 0.00 - 0.20 K/[facility] LAB HEMETOLOGY METHOD 11/17/2024 7:26 AM [facility] Immature Granulocytes Absolute 0.04(H) 0.00 - 0.03 K/mcL LAB HEMETOLOGY METHOD 11/17/2024 7:26 AM [facility] Blood Venous blood specimen / Unknown Venipuncture / Unknown 11/17/2024 6:43 AM EST 11/17/2024 7:07 AM EST Bhavin Garcia MD LAB BLOOD ORDERABLES [facility] [address] [place] [address], * (ABNORMAL) Basic metabolic panel (11/17/2024 6:43 AM EST) Sodium 139 133 - 145 mmol/L LAB CHEMISTRY METHOD 11/17/2024 7:49 AM [facility] Potassium 3.3(L) 3.5 - 5.5 mmol/L LAB CHEMISTRY METHOD 11/17/2024 7:49 AM [facility] Chloride 107 96 - 110 mmol/L LAB CHEMISTRY METHOD 11/17/2024 7:49 AM [facility] CO2 27 21 - 32 mmol/L LAB CHEMISTRY METHOD 11/17/2024 7:49 AM [facility] Anion Gap 5 3 - 11 LAB CHEMISTRY METHOD 11/17/2024 7:49 AM [facility] Glucose 100 70 - 100 mg/dL LAB CHEMISTRY METHOD 11/17/2024 7:49 AM [facility] BUN 16 5 - 25 mg/dL LAB CHEMISTRY METHOD 11/17/2024 7:49 AM [facility] Creatinine 0.63 0.50 - 1.10 mg/dL LAB CHEMISTRY METHOD 11/17/2024 7:49 AM [facility] eGFR 91 >=60 mL/min/1. 73m2 LAB CHEMISTRY METHOD 11/17/2024 7:49 AM [facility] Comment:Calculation based on the??Chronic Kidney Disease Epidemiology Collaboration (CKD-EPI) equation refit??without adjustment for race. BUN/Creatinine Ratio 25.4 LAB CHEMISTRY METHOD 11/17/2024 7:49 AM [facility] Calcium 8.5 8.5 - 10.5 mg/dL LAB CHEMISTRY METHOD 11/17/2024 7:49 AM [facility] Blood Venous blood specimen / Unknown Venipuncture / Unknown 11/17/2024 6:43 AM EST 11/17/2024 7:12 AM EST Bhavin Garcia MD LAB BLOOD ORDERABLES [facility] [address] [place] [address], * CT Angio Chest wo and/or w [...] Signed Date: 11/16/2024 10:45 ET Workstation ID: [id number] Transcribed By: Self Edit Transcribed Date: 11/16/2024 10:26 ET Narrative 11/16/2024 10:45 AM EST EXAMINATION: CTA chest with contrast. CLINICAL INDICATION: SOB. Hip fracture. Rule out PE. COMPARISON: Chest x-ray 11/16/2024. TECHNIQUE: 2.5 mm thin axial and reformatted 3 mm thin sagittal and coronal images of chest were obtained following IV 90 mL Isovue-[id number]. Scanner: [employer] 64 slice VCT Dose reduction technique: ASIR [...] were obtained following IV 90 mL Isovue-370.Scanner: [employer] 64 slice VCT Dose reduction technique: ASIR [...] Signed Date: 11/16/2024 10:45 ET Workstation ID: [id number] Transcribed By: Self Edit Transcribed Date: 11/16/2024 [...] 7:20 AM [facility] Bordetella pertussis Not Detected Not [...] 5:44 AM EST 11/16/2024 6:27 AM EST [facility] - 11/16/2024 7:20 AM EST Testing was performed using the [employer] Respiratory Pathogen PCR Assay. All results must [...] DANIELS LAB MICROBIOLOGY - G ENERAL ORDERABLES [facility] [address] [place] [address], * (ABNORMAL) Arterial blood gas (11/16/2024 5:42 [...] AM EST Rochelle DANIELS LAB BLOOD ORDERABLES [facility] [address] [place] [address], [place] [phone] * XR Chest 1 View (11/16/2024 4:48 [...] Signed Date: 11/16/2024 07:11 ET Workstation ID: [id number] Transcribed By: Self Edit Transcribed Date: 11/16/2024 [...] Signed Date: 11/16/2024 07:11 ET Workstation ID: [id number] Transcribed By: Self Edit Transcribed Date: 11/16/2024 07:09 ET Rochelle DANIELS IMTram XR PROCEDURES * CT Head [...] Signed Date: 11/15/2024 08:30 ET Workstation ID: [id number] Transcribed By: Self Edit Transcribed Date: 11/15/2024 08:25 ET Narrative 11/15/2024 8:30 AM EST Examination: CT brain without contrast. CLINICAL INDICATION: Follow-up subdural hematoma. COMPARISON: CT brain 11/14/2024 at 2:10 PM. TECHNIQUE: Routine 2.5 mm thin axial and reformatted 3 mm thin sagittal and coronal images of brain were obtained. Scanner: [employer] 64 slice VCT Dose reduction technique: ASIR [...] coronal images of brain were obtained. Scanner: Bizdom 64 sliceVCT Dose reduction technique: ASIR (Adaptive [...] Signed Date: 11/15/2024 08:30 ET Workstation ID: [id number] Transcribed By: Self Edit Transcribed Date: 11/15/2024 08:25 ET Hardik DANIELS [facility] CT PROCEDURES * Vitamin B12 (11/15/2024 6:27 AM EST) Vitamin B-12 265 250 - 900 pcg/mL LAB CHEMISTRY METHOD 11/15/2024 6:00 PM EST [facility] Blood Venous blood specimen / Unknown Venipuncture / Unknown 11/15/2024 6:27 AM EST 11/15/2024 7:04 AM EST Bhavin Garcia MD LAB BLOOD ORDERABLES [facility] [address] [place] [address], * (ABNORMAL) CBC auto differential (11/15/2024 6:27 AM EST) WBC 8.8 4.8 - 10.8 K/mcL LAB HEMETOLOGY METHOD 11/15/2024 7:22 AM [facility] LAB RBC 3.60(L) 3.80 - 4.80 M/mcL LAB HEMETOLOGY METHOD 11/15/2024 7:22 AM [facility] LAB Hemoglobin 11.0(L) 11.5 - 16.0 g/dL LAB HEMETOLOGY METHOD 11/15/2024 7:22 AM [facility] LAB Hematocrit 34.2(L) 35.0 - 47.0 % LAB HEMETOLOGY METHOD 11/15/2024 7:22 AM [facility] LAB MCV 95.3 79.0 - 98.0 FL LAB HEMETOLOGY METHOD 11/15/2024 7:22 AM [facility] LAB MCH 30.6 27.0 - 32.0 pcg LAB HEMETOLOGY METHOD 11/15/2024 7:22 AM [facility] LAB MCHC 32.2 32.0 - 37.0 g/dL LAB HEMETOLOGY METHOD 11/15/2024 7:22 AM [facility] LAB RDW 15.2(H) 11.0 - 15.0 % LAB HEMETOLOGY METHOD 11/15/2024 7:22 AM [facility] LAB Platelets 162 130 - 400 K/mcL LAB HEMETOLOGY METHOD 11/15/2024 7:22 AM [facility] MPV 10.8 7.0 - 11.0 FL LAB HEMETOLOGY METHOD 11/15/2024 7:22 AM [facility] LAB NRBC 0.0 <1.0 % LAB HEMETOLOGY METHOD 11/15/2024 7:22 AM [facility] LAB NRBC Absolute 0.00 <0.10 K/mcL LAB HEMETOLOGY METHOD 11/15/2024 7:22 AM [facility] LAB Neutrophils Relative 83.6 % LAB HEMETOLOGY METHOD 11/15/2024 7:22 AM [facility] Lymphocytes Relative 6.8 % LAB HEMETOLOGY METHOD 11/15/2024 7:22 AM [facility] Monocytes Relative 5.8 % LAB HEMETOLOGY METHOD 11/15/2024 7:22 AM [facility] Eosinophils Relative 3.3 % LAB HEMETOLOGY METHOD 11/15/2024 7:22 AM [facility] Basophils Relative 0.2 % LAB HEMETOLOGY METHOD 11/15/2024 7:22 AM [facility] Immature Granulocytes Relative 0.3 % LAB HEMETOLOGY METHOD 11/15/2024 7:22 AM [facility] Neutrophils Absolute 7.33(H) 1.50 - 7.00 K/mcL LAB HEMETOLOGY METHOD 11/15/2024 7:22 AM [facility] Lymphocytes Absolute 0.60(L) 1.00 - 5.00 K/mcL LAB HEMETOLOGY METHOD 11/15/2024 7:22 AM [facility] Monocytes Absolute 0.51 0.20 - 1.00 K/mcL LAB HEMETOLOGY METHOD 11/15/2024 7:22 AM [facility] Eosinophils Absolute 0.29 0.00 - 0.50 K/mcL LAB HEMETOLOGY METHOD 11/15/2024 7:22 AM EST [facility] LAB Basophils Absolute 0.02 0.00 - 0.20 K/[facility] LAB HEMETOLOGY METHOD 11/15/2024 7:22 AM EST [facility] LAB Immature Granulocytes Absolute 0.03 0.00 - 0.03 K/[facility] LAB HEMETOLOGY METHOD 11/15/2024 7:22 AM EST [facility] LAB Blood Venous blood specimen / Unknown Venipuncture / Unknown 11/15/2024 6:27 AM EST 11/15/2024 7:05 AM EST Demarcus Villalobos MD LAB BLOOD ORDERABLES Performing Organization Address [facility]/ZIP Co de Phone Number [facility] [address] [place] [address], * Magnesium (11/15/2024 6:27 AM EST) Magnesium 2.0 1.9 - 2.6 mg/dL LAB CHEMISTRY METHOD 11/15/2024 8:39 AM EST [facility] LAB Blood Venous blood specimen / Unknown Venipuncture / Unknown 11/15/2024 6:27 AM EST 11/15/2024 7:04 AM EST Demarcus Villalobos MD LAB BLOOD ORDERABLES Performing Organization Address City/[facility]/ZIP Co de Phone Number [facility] [address] [place] [address], [place] [phone] * (ABNORMAL) Basic metabolic panel (11/15/2024 6:27 AM EST) Sodium 139 133 - 145 mmol/L LAB CHEMISTRY METHOD 11/15/2024 8:43 AM EST [facility] Potassium 3.6 3.5 - 5.5 mmol/L LAB CHEMISTRY METHOD 11/15/2024 8:43 AM EST [facility] Chloride 108 96 - 110 mmol/L LAB CHEMISTRY METHOD 11/15/2024 8:43 AM [facility] CO2 24 21 - 32 mmol/L LAB CHEMISTRY METHOD 11/15/2024 8:43 AM [facility] Anion Gap 7 3 - 11 LAB CHEMISTRY METHOD 11/15/2024 8:43 AM [facility] Glucose 114(H) 70 - 100 mg/dL LAB CHEMISTRY METHOD 11/15/2024 8:43 AM [facility] BUN 22 5 - 25 mg/dL LAB CHEMISTRY METHOD 11/15/2024 8:43 AM [facility] Creatinine 0.77 0.50 - 1.10 mg/dL LAB CHEMISTRY METHOD 11/15/2024 8:43 AM [facility] LAB eGFR 80 >=60 mL/min/1. 73m2 LAB CHEMISTRY METHOD 11/15/2024 8:43 AM [facility] LAB Comment:Calculation based on the??Chronic Kidney Disease Epidemiology Collaboration (CKD-EPI) equation refit??without adjustment for race. BUN/Creatinine Ratio 28.6 LAB CHEMISTRY METHOD 11/15/2024 8:43 AM [facility] Calcium 8.5 8.5 - 10.5 mg/dL LAB CHEMISTRY METHOD 11/15/2024 8:43 AM [facility] Blood Venous blood specimen / Unknown Venipuncture / Unknown 11/15/2024 6:27 AM EST 11/15/2024 7:04 AM EST Demarcus Villalobos MD LAB BLOOD ORDERABLES [facility] [address] [place] [address], * Activated partial thromboplastin time (11/14/2024 8:37 PM EST) aPTT 32.2 24.1 - 39.3 sec LAB COAGULATION METHOD 11/14/2024 9:02 PM EST [facility] LAB Blood Venous blood specimen / Unknown Venipuncture / Unknown 11/14/2024 8:37 PM EST 11/14/2024 8:49 PM EST Hardik DANIELS LAB BLOOD ORDERABLES Performing Organization Address [facility]/ZIP Co de Phone Number [facility] [address] [place] [address], [place] [phone] * Prothrombin time with INR (11/14/2024 8:37 PM EST) Protime 12.0 10.6 - 13.9 sec LAB COAGULATION METHOD 11/14/2024 9:02 PM EST [facility] INR 1.0 LAB COAGULATION METHOD 11/14/2024 9:02 PM EST [facility] Blood Venous blood specimen / Unknown Venipuncture / Unknown 11/14/2024 8:37 PM EST 11/14/2024 8:49 PM EST Hardik DANIELS LAB BLOOD ORDERABLES Performing Organization Address [facility]/ZIP Co de Phone Number [facility] [address] [place] [address], [place] [phone] * CT Head wo Contrast (11/14/2024 2:27 [...] Signed Date: 11/14/2024 14:51 ET Workstation ID: [id number] Transcribed By: Self Edit Transcribed Date: 11/14/2024 [...] Signed Date: 11/14/2024 14:51 ET Workstation ID: [id number] Transcribed By: Self Edit Transcribed Date: 11/14/2024 14:41 ET Aleida DANIELS IMG CT PROCEDURES * (ABNORMAL) Culture urine (11/14/2024 1:58 PM EST) Culture, Urine >100,000 CFU/mL Escherichia coli ESBL(A) CLINT 11/17/2024 11:51 AM EST [facility] LAB Comment:THIS ORGANISM IS POS ITIVE FOR [...] DANIELS LAB MICROBIOLOGY - G ENERAL ORDERABLES [facility] [address] [place] [address], * Estrada urine culture tube (11/14/2024 1:58 PM EST) Extra Tube Hold for add-ons. 11/14/2024 4:02 PM EST [facility] LAB Comment:Auto resulted. Urine Urinary bladder structure / Unknown Non-blood Collection / Unknown 11/14/2024 1:58 PM EST 11/14/2024 2:20 PM EST Aleida DANIELS LAB URINE ORDERABLES [facility] [address] [place] [address], * (ABNORMAL) Urinalysis with reflex microscopic and culture (11/14/2024 1:58 PM EST) Specific [place] Urine 1.021 1.003 - 1.030 LAB URINALYSIS [...] - AUTOMATED METHOD 11/14/2024 2:32 PM EST [facility] Blood, Urine Moderate(A) Negative LAB URINALYSIS [...] PM EST Aleida DANIELS LAB URINE ORDERABLES [facility] [address] [place] [address], * CT Lower Extremity wo Contrast Left [...] Signed Date: 11/14/2024 12:30 ET Workstation ID: [id number] Transcribed By: Self Edit Transcribed Date: 11/14/2024 [...] Signed Date: 11/14/2024 12:30 ET Workstation ID: [id number] Transcribed By: Self Edit Transcribed Date: 11/14/2024 12:26 ET Aleida DANIELS IMTram CT PROCEDURES * Troponin I high sensitivity (11/14/2024 11:25 AM EST) High Sensitivity Troponin I 10 <=54 ng/L LAB CHEMISTRY METHOD 11/14/2024 12:49 PM EST [facility] Blood Venous blood specimen / Unknown Venipuncture / Unknown 11/14/2024 11:25 AM EST 11/14/2024 11:56 AM EST Narrative [facility] - 11/14/2024 12:49 PM EST High levels of biotin in samples may falsely decrease hsTroponin values. ??Use caution when interpreting hsTroponin results in patients taking biotin who exhibit renal impairment (eGFR <60) or in patients taking more than 20 mg/day of biotin. Aleida DANIELS LAB BLOOD ORDERABLES [facility] [address] [place] [address], * XR Chest 1 View (11/14/2024 11:03 AM EST) Anatomical Region Laterality Modality Body Radiographic Jalyn ging 11/14/2024 11:0 8 AM EST Impressions 11/14/2024 11:08 AM EST No acute findings. -------- FINAL REPORT -------- Dictated By: Vinayak Austin Dictated Date: 11/14/2024 11:08 ET Assigned Physician: Vinayak Austin Reviewed and Electronically Signed By: Vinayak Austin Signed Date: 11/14/2024 11:08 ET Workstation ID: [id number] Transcribed By: Self Edit Transcribed Date: 11/14/2024 [...] Signed Date: 11/14/2024 11:08 ET Workstation ID: [id number] Transcribed By: Self Edit Transcribed Date: 11/14/2024 11:08 ET Aleida DANIELS IMG XR PROCEDURES * XR Hip 2-3 Views [...] Signed Date: 11/14/2024 11:08 ET Workstation ID: [id number] Transcribed By: Self Edit Transcribed Date: 11/14/2024 [...] Signed Date: 11/14/2024 11:08 ET Workstation ID: [id number] Transcribed By: Self Edit Transcribed Date: 11/14/2024 11:05 ET Aleida DANIELS IMG XR PROCEDURES * CT Head [...] Signed Date: 11/14/2024 10:36 ET Workstation ID: [id number] Transcribed By: Self Edit Transcribed Date: 11/14/2024 [...] Signed Date: 11/14/2024 10:36 ET Workstation ID: [id number] Transcribed By: Self Edit Transcribed Date: 11/14/2024 10:30 ET Aleida DANIELS IMG CT PROCEDURES * (ABNORMAL) Thyroid stimulating hormone (11/14/2024 9:58 AM EST) Pathologist [facility] TSH 48.69(H) 0.40 - 4.00 mcIU/mL LAB CHEMISTRY METHOD 11/15/2024 6:35 AM EST [facility] LAB Blood Venous blood specimen / Unknown Venipuncture / Unknown 11/14/2024 9:58 AM EST 11/14/2024 10:25 AM EST Demarcus Villalobos MD LAB BLOOD ORDERABLES [facility] [address] [place] [address], * (ABNORMAL) CBC auto differential (11/14/2024 9:58 AM EST) [facility] WBC 11.6(H) 4.8 - 10.8 K/mcL LAB HEMETOLOGY METHOD 11/14/2024 10:32 AM EST [facility] RBC 4.10 3.80 - 4.80 M/mcL LAB HEMETOLOGY METHOD 11/14/2024 10:32 AM EST [facility] Hemoglobin 12.3 11.5 - 16.0 g/dL LAB HEMETOLOGY METHOD 11/14/2024 10:32 AM EST [facility] Hematocrit 38.2 35.0 - 47.0 % LAB HEMETOLOGY METHOD 11/14/2024 10:32 AM EST [facility] MCV 94.1 79.0 - 98.0 FL LAB HEMETOLOGY METHOD 11/14/2024 10:32 AM [facility] MCH 30.3 27.0 - 32.0 pcg LAB HEMETOLOGY METHOD 11/14/2024 10:32 AM [facility] MCHC 32.2 32.0 - 37.0 g/dL LAB HEMETOLOGY METHOD 11/14/2024 10:32 AM [facility] RDW 15.2(H) 11.0 - 15.0 % LAB HEMETOLOGY METHOD 11/14/2024 10:32 AM [facility] Platelets 214 130 - 400 K/mcL LAB HEMETOLOGY METHOD 11/14/2024 10:32 AM [facility] MPV 10.4 7.0 - 11.0 FL LAB HEMETOLOGY METHOD 11/14/2024 10:32 AM [facility] NRBC 0.0 <1.0 % LAB HEMETOLOGY METHOD 11/14/2024 10:32 AM [facility] NRBC Absolute 0.00 <0.10 K/mcL LAB HEMETOLOGY METHOD 11/14/2024 10:32 AM [facility] Neutrophils Relative 88.1 % LAB HEMETOLOGY METHOD 11/14/2024 10:32 AM [facility] Lymphocytes Relative 4.8 % LAB HEMETOLOGY METHOD 11/14/2024 10:32 AM [facility] Monocytes Relative 6.4 % LAB HEMETOLOGY METHOD 11/14/2024 10:32 AM [facility] Eosinophils Relative 0.0 % LAB HEMETOLOGY METHOD 11/14/2024 10:32 AM [facility] Basophils Relative 0.1 % LAB HEMETOLOGY METHOD 11/14/2024 10:32 AM [facility] Immature Granulocytes Relative 0.6 % LAB HEMETOLOGY METHOD 11/14/2024 10:32 AM EST [facility] Neutrophils Absolute 10.24(H) 1.50 - 7.00 K/[facility] LAB HEMETOLOGY METHOD 11/14/2024 10:32 AM EST [facility] Lymphocytes Absolute 0.56(L) 1.00 - 5.00 K/mcL LAB HEMETOLOGY METHOD 11/14/2024 10:32 AM EST [facility] Monocytes Absolute 0.74 0.20 - 1.00 K/[facility] LAB HEMETOLOGY METHOD 11/14/2024 10:32 AM EST [facility] Eosinophils Absolute 0.00 0.00 - 0.50 K/[facility] LAB HEMETOLOGY METHOD 11/14/2024 10:32 AM EST [facility] Basophils Absolute 0.01 0.00 - 0.20 K/mcL LAB HEMETOLOGY METHOD 11/14/2024 10:32 AM EST [facility] Immature Granulocytes Absolute 0.07(H) 0.00 - 0.03 K/[facility] LAB HEMETOLOGY METHOD 11/14/2024 10:32 AM EST [facility] Blood Venous blood specimen / Unknown Venipuncture / Unknown 11/14/2024 9:58 AM EST 11/14/2024 10:25 AM EST Aleida DANIELS LAB BLOOD ORDERABLES [facility] [address] [place] [address], * (ABNORMAL) Comprehensive metabolic panel (11/14/2024 9:58 AM EST) Sodium 137 133 - 145 mmol/L LAB CHEMISTRY METHOD 11/14/2024 11:56 AM EST [facility] Potassium 3.6 3.5 - 5.5 mmol/L LAB CHEMISTRY METHOD 11/14/2024 11:56 AM EST [facility] Chloride 107 96 - 110 mmol/L [...] g/dL LAB CHEMISTRY METHOD 11/14/2024 11:56 AM EST [facility] Albumin 3.9 3.2 - 5.0 g/dL LAB CHEMISTRY METHOD 11/14/2024 11:56 AM EST [facility] Total Bilirubin 1.0 0.0 - 1.4 mg/dL LAB CHEMISTRY METHOD 11/14/2024 11:56 AM EST [facility] Blood Venous blood specimen / Unknown Venipuncture / Unknown 11/14/2024 9:58 AM EST 11/14/2024 10:25 AM EST Aleida DANIELS LAB BLOOD ORDERABLES [facility] [address] [place] [address], * Troponin I high sensitivity (11/14/2024 9:58 AM EST) [facility] High Sensitivity Troponin I 10 <=54 ng/L LAB CHEMISTRY METHOD 11/14/2024 10:55 AM EST [facility] Blood Venous blood specimen / Unknown Venipuncture / Unknown 11/14/2024 9:58 AM EST 11/14/2024 10:25 AM EST Narrative [facility] - 11/14/2024 10:55 AM EST High levels of biotin in samples may falsely decrease hsTroponin values. ??Use caution when interpreting hsTroponin results in patients taking biotin who exhibit renal impairment (eGFR <60) or in patients taking more than 20 mg/day of biotin. Aleida DANIELS LAB BLOOD ORDERABLES [facility] [address] [place] [address], * (ABNORMAL) Creatine kinase (11/14/2024 9:58 AM EST) Pathologist [facility] Total CK 668(H) 22 - 269 unit/L LAB CHEMISTRY METHOD 11/14/2024 11:20 AM EST [facility] Blood Venous blood specimen / Unknown Venipuncture / Unknown 11/14/2024 9:58 AM EST 11/14/2024 10:25 AM EST Aleida DANIELS LAB BLOOD ORDERABLES Performing Organization Address [facility] Co de Phone Number [facility] [address] [place] [address], * ECG 12 lead (11/14/2024 9:41 AM EST) Ventricular Rate ECG 80 BPM GEMUSE Atrial Rate 80 BPM GEMUSE P-R Interval 126 ms GEMUSE QRS Duration 80 ms GEMUSE Q-T Interval 430 ms GEMUSE QTc 495 ms GEMUSE R Homer 31 degrees GEMUSE T Homer -53 degrees GEMUSE ECG Interpretation Normal sinus rhythm Nonspecific T wave abnormality Abnormal ECG No previous ECGs available Confirmed by HELADIO SIMMONS ([id number]) on 11/14/2024 5:33:44 PM GEMUSE 11/14/2024 9:41 AM EST 11/14/2024 5:33 PM EST Román Guzman MD ECG ORDERABLES Performing Organization Address [facility] Co de Phone Number GEMUSE * CA CRITICAL CARE EACH ADDITIONAL 30 MINUTES, CA CRITICAL CARE EACH ADDITIONAL 30 MINUTES, CA CRITICAL CARE EACH ADDITIONAL 30 MINUTES (11/14/2024 [...] ?? Román Guzman MD IN CLINIC/BEDSIDE O [place] documented in this encounter Visit Diagnoses Diagnosis Acute subdural hematoma (CMS/HCC)- Primary Subdural hematoma (CMS/HCC) Subdural hemorrhage Closed fracture of left hip, initial encounter (CMS/HCC) Syncope, unspecified syncope type Hypoxia Hypoxemia Hip fracture requiring operative repair, left, closed, initial encounter (CMS/HCC) documented in this encounter Admitting Diagnoses Diagnosis [...] Given 11/23/2024 9:26 AM EST 2.5 mg ceFAZolin (ANCEF) 2 g in sterile water 20 mL IV syringe 2 g, intravenous, Administer over 3 Minutes, Every 6 hours, First dose on Sun11/17/24 at 1530, For 3 doses, Recovery & On Unit, Can start 4 hours after pre-op dose if patient being discharged on same day of surgery, Indication: Prophylaxis-Surgical Given 11/17/2024 5:26 PM EST 2 g cefTRIAXone (ROCEPHIN) 1 g in sterile water 10 mL IV syringe 1 g, intravenous, at 200 mL/hr, Administer over 3 Minutes, Every 24 hours, First dose on Sun11/14/24 at 2000, For 5 days, Do not administer simultaneously with any calcium containing solutions via a Y-site in any patient., Indication: Urinary Tract/Genitourinary Given 11/16/2024 8:27 PM EST 1 g 200 mL/hr Given 11/15/2024 8:04 PM EST 1 g 200 mL/hr Given 11/14/2024 9:21 PM EST 1 g 200 mL/hr citalopram (CeleXA) tablet 30 mg 30 mg, oral, Daily, First dose on Sun11/15/24 at 0900 Given 11/26/2024 10:09 AM EST 30 mg Given 11/25/2024 9:18 AM EST 30 mg Given 11/24/2024 8:48 AM EST 30 mg fosfomycin (MONUROL) packet 3 g 3 g, oral, Once, On Sun11/17/24 at 1830, For 1 dose, Indication: Urinary Tract/Genitourinary, Authorizing ID: Approval Pending Given 11/17/2024 7:07 PM EST 3 g heparin (UFH) injection 5,000 Units 5,000 Units, [...] than:, SBP>160, Starting on Sun11/17/24 at 0820 Given 11/17/2024 8:44 AM EST 10 mg HYDROmorphone (PF) injection 0.5 mg 0.5 mg, intravenous, Every 3 hours PRN, severe pain or when therapies for moderate pain were not effective, Starting on Sun11/14/24 at 1256 Given 11/21/2024 11:37 PM EST 0.5 mg Given 11/20/2024 2:06 AM EST 0.5 mg Given 11/19/2024 5:05 PM EST 0.5 mg iopamidoL (ISOVUE-370) 370 mg iodine /mL (76 %) injection 80 mL 80 mL, intravenous, Once in imaging, Starting on Sun11/16/24 at 1004, For 1 dose Given 11/16/2024 10:07 AM EST 80 mL lactated Ringer's infusion 1,000 mL 1,000 mL, intravenous, at 100 mL/hr, Continuous, Starting on Sun11/17/24 at 1530, For 10 hours, Recovery & On Unit, - Replace/DC previous fluid order from pre-op - If SBP <120 you may continue fluids at 100cc/hr until morning New Bag 11/17/2024 5:30 PM EST 1,000 mL 100 mL/hr lactated Ringer's infusion 100 mL/hr, intravenous, Continuous, Starting on Sun11/14/24 at 1257, For 1 day New Bag 11/14/2024 1:47 PM EST 100 mL/hr 100 mL/hr levothyroxine (SYNTHROID, LEVOTHROID) tablet 50 mcg 50 mcg, oral, Daily, First dose on Sun11/14/24 at 2000, ORAL ROUTE: take on an empty stomach and separate from other medications. ENTERAL TUBE ROUTE: If newly initiated enteral nutrition duration is over 5 days, hold enteral nutrition 1 hour before and after drug administration, per ASPEN guidelines. Given 11/14/2024 9:21 PM EST 50 mcg levothyroxine (SYNTHROID, LEVOTHROID) tablet 75 mcg 75 mcg, oral, Daily, First dose (after last modification) on Sun11/15/24 at 0900, ORAL ROUTE: take on an empty stomach and separate from other medications. ENTERAL TUBE ROUTE: If newly initiated enteral nutrition duration is over 5 days, hold enteral nutrition 1 hour before and after drug administration, per ASPEN guidelines. Given 11/26/2024 10:09 AM EST 75 mcg Given 11/25/2024 9:19 AM EST 75 mcg Given 11/24/2024 8:48 AM EST 75 mcg LORazepam (ATIVAN) tablet 0.5 mg 0.5 mg, oral, Once, On Sun11/15/24 at 2215, For 1 dose Given 11/15/2024 10:30 PM EST 0.5 mg LORazepam (ATIVAN) tablet 0.5 mg 0.5 mg, oral, Once, On Sun11/26/24 at 0300, For 1 dose Given 11/26/2024 2:44 AM EST 0.5 mg magnesium hydroxide (MILK OF MAGNESIA) 400 mg/5 mL suspension 30 mL 30 mL, oral, Daily PRN, constipation, Starting on Sun11/14/24 at 1256, 1st line for treatment of constipation - give scheduled if no bowel movement in past 24 hours melatonin tablet 3 mg 3 mg, oral, Once, On Sun11/15/24 at 2215, For 1 dose Given 11/15/2024 10:30 PM EST 3 mg melatonin tablet 3 mg 3 mg, oral, Nightly, First dose on Sun11/16/24 at 2200 Given 11/25/2024 9:44 PM EST 3 mg Given 11/24/2024 9:24 PM EST 3 mg Given 11/23/2024 8:19 PM EST 3 mg morphine injection 4 mg 4 mg, intravenous, Once, On Sun11/14/24 at 1143, For 1 dose Given 11/14/2024 11:54 AM EST 4 mg multivitamin tablet 1 tablet 1 tablet, [...] (ZOFRAN) injection 4 mg 4 mg, intravenous, Once, On Sun11/14/24 at 1143, For 1 dose Given 11/14/2024 11:53 AM EST 4 mg ondansetron (PF) (ZOFRAN) injection 4 mg 4 [...] Given 11/24/2024 6:05 AM EST 40 mg perflutren lipid microsphere (DEFINITY) 1.3 mL in sodium chloride 0.9% 8.7 mL injection 10 mL, intravenous, Administer over 10 Minutes, Once in imaging, Starting on Sun11/18/24 at 1010, For 1 dose, CV Medication Orders Given 11/18/2024 10:10 AM EST 2 mL polyethylene glycol (MIRALAX) packet 17 g 17 g, oral, Daily, First dose on Sun11/14/24 at 1257, Bowel Regimen - for prevention of constipation Given 11/26/2024 10:10 AM EST 17 g Given 11/25/2024 9:20 AM EST 17 g Given 11/24/2024 8:49 AM EST 17 g potassium chloride (KLOR-CON M20) CR tablet 40 mEq 40 mEq, oral, Once, On Sun11/17/24 at 0845, For 1 dose, Tablet may be swallowed whole (do not crush/chew/suck on) OR broken in half and each half swallowed separately OR dissolved (whole tablet) in ~4 ounces of water (allow ~2 minutes to dissolve, stir well and administer immediately). Given 11/17/2024 8:39 AM EST 40 mEq senna-docusate (PERICOLACE) 8.6-50 mg per tablet 2 tablet 2 tablet, oral, Nightly, First dose on Sun11/17/24 at 2100, Recovery & On Unit Given 11/25/2024 9:44 PM EST 2 tablet s Given 11/24/2024 9:24 PM EST 2 tablets Given 11/23/2024 8:19 PM EST 2 tablets sodium chloride 0.9 % bolus 500 mL 500 mL, intravenous, at 1,000 mL/hr, Administer over 30 Minutes, Once, On Sun11/14/24 at 1149, For 1 dose New Bag 11/14/2024 11:53 AM EST 500 mL 1000 mL/hr sodium chloride 0.9 % flush 10 mL [...] Given 11/16/2024 10:07 AM EST 10 mL sodium chloride 0.9 % flush 10 mL 10 mL, intravenous, Once, On Sun11/16/24 at 1030, For 1 dose Given 11/16/2024 10:55 AM EST 10 mL tranexamic acid (CYKLOKAPRON) 1,000 mg in sodium chloride 0.9 % 100 mL IVPB 1,000 mg (1 g), intravenous, Once, On Sun11/14/24 at 1320, For 1 dose, Do not exceed maximum rate of 100 mg per minute. New Bag 11/14/2024 1:46 PM EST 1,000 mg documented in this encounter Discontinued Medications Medication [...] 30 mg, oral, Daily, First dose on 11/15/24 at [...] Thromboembolism 0848 (Given - Provider: Yolanda Carson RN)2125 (Given - Provider: Amara Zhu RN) 0919 (Given - Provider: Joseph Arita RN)2145 (Given - Provider: Bridgett Guevara RN) 1009 [...] Arita RN) 1009 (Given - Provider: Joseph Arita, JAMMIE) LORazepam (ATIVAN) tablet 0.5 mg (COMPLETED) 0.5 mg, oral, Once, On Sun11/26/24 at 0300, For 1 dose 0244 (Given - Provider: Bridgett Guevara, JAMMIE) melatonin tablet 3 mg 3 mg, oral, Nightly, First dose on Sun11/16/24 at 2200 2124 (Given - Provider: Amara Zhu, JAMMIE) 2144 (Given - Provider: Bridgett Guevara RN) [...] RN) 0622 (Given - Provider: Amara Zhu RN) 0612 (Given - Provider: Bridgett Guevara, JAMMIE) polyethylene glycol (MIRALAX) packet 17 g 17 g, oral, Daily, First dose on Sun11/14/24 at 1257, Bowel Regimen - for prevention of constipation 0849 (Given - Provider: Yolanda Carson RN) 0920 (Given - Provider: Joseph Arita, JAMMIE) 1010 (Given - Provider: Joseph Arita, JAMMIE) senna-docusate (PERICOLACE) 8.6-50 mg per tablet 2 tablet 2 tablet, oral, Nightly, First dose on 1/20/25 at 2100, Recovery & On Unit 2124 (Given - Provider: Amara Zhu, JAMMIE) 214 (Given - Provider: Bridgett Guevara, JAMMIE) 2100 (Canceled Entry - Provider: Automatic Discharge Provider - Comment: Automatically canceled at discontinue of medication order) sodium chloride 0.9 % flush 10 mL(Linked Group 1) 10 mL, intravenous, 2 times daily, First dose on Sun11/14/24 at 1257 0849 (Given - Provider: Yolanda Carson, JAMMIE)212 (Given - Provider: Amara Zhu, JAMMIE) 0920 (Given - Provider: Joseph Arita, JAMMIE)215 (Given - Provider: Bridgett Guevara RN) 101 (Given - Provider: Joseph Arita RN)2100 (Canceled [...] at 1256 2124 (Given - Provider: Amara Zhu RN) 0230 (Given - Provider: Bridgett Guevara RN)1410 (Given - Provider: Joseph Arita RN) oxyCODONE [...] Count Last Ordered Date First Ordered Date acetaminophen (TYLENOL) tablet 650 mg 1 HYDROmorphone (PF) injection 0.5 mg 1 11/17 lactated Ringer's infusion 1 11/17/2024 ondansetron (PF) (ZOFRAN) injection 4 mg 2 11/17/2024 11/14/2024 ondansetron ODT (ZOFRAN-ODT) disintegrating tablet 4 mg 1 11/17/2024 oxyCODONE (ROXICODONE) immed iate release tablet 2.5 mg 1 11/17/2024 oxyCODONE (ROXICODONE) immed iate release tablet 5 mg 1 11/17/2024 Oxygen Therapy, Adult 11/17/2024 ceFAZolin (ANCEF) 2 g in [facility] alfredo rile water 20 mL IV syringe 11/14/2024 magnesium hydroxide (MILK OF MAGNESIA) 400 mg/5 mL suspension 30 mL 11/14/2024 naloxone (NARCAN) injection 0.04 mg 1 11/14 tranexamic acid (CYKLOKAPRON ) 1,000 mg in sodium chloride 0.9 % 100 mL IVPB 1 11/14/2024 Nursing Count Last Ordered Date First Orde red Date MISCELLANEOUS NURSING CARE ORDER (SPECIFY) 11/14/2024 NURSING SWALLOW SCREEN 11/14/2024 OT Count Last Ordered Date First Orde red Date OT EVAL AND TREAT 1 11/17/2024 Respiratory Care Count Last Ordered Date First Ordered Date OXYGEN THERAPY, ADULT 1 11/17/2024 HEALTH/SAFETY JOB TITLES Count Last Ordered Date First Orde red Date HEALTH/SAFETY JOB TITLES SWALLOW EVAL AND TREAT 1 11/14/2024 IV [...] documented as of this encounter Care Teams Laborer Tin Can Relationship Specialty Start Date End Date Garcia Doran MD [address] [place] [id number] PCP - General Internal Medicine 01/11/22 documented as of this encounter
[2024-11-27 05:34] LABS: Basophils Percent Auto 0.3 % (0-2); Eosinophils Absolute Auto 0.4 X10*3/uL (0.0-0.4); Eosinophils Percent Auto 3.6 % (0-4); Hematocrit 26.9 % (37.0-47.0); Hemoglobin 8.9 g/dl (12.0-16.0); Imm Gran Abs Auto 0.12 X10*3/uL (0.00-0.03); Imm Gran Pct Auto 1.1 % (0.0-0.4); Lymphocytes Absolute Auto 1.3 X10*3/uL (1.2-4.9); Mean Corpuscular HGB Conc 33.1 g/dl (31.0-35.0); Mean Corpuscular Hemoglobin 31.3 pg (27.0-33.0); Mean Corpuscular Volume 94.7 fL (80.0-98.0); Mean Platelet Volume 8.8 fL (9.4-12.3); Monocytes Percent Auto 9.6 % (2-11); Neutrophils Absolute Auto 7.9 x10*3/uL (2.0-8.3); Neutrophils Percent Auto 73.4 % (45-73); Platelet Count 514 X10*3/uL (160-400); Red Blood Count 2.84 X10*6/uL (4.20-5.50); Red Cell Distribution Width 16.3 % (11.0-16.0); White Blood Count 10.7 X10*3/uL (4.8-10.8)
[2024-11-27 05:58] LABS: Alanine Aminotransferase 27 U/L (0-31); Albumin Level 3.2 g/dL (3.5-5.0); Alkaline Phosphatase 116 U/L (39-117); Anion Gap 11 (12-20); Aspartate Amino Transferase 35 U/L (5-31); Bilirubin Total 0.5 mg/dL (0.0-1.0); Blood Urea Nitrogen 13 mg/dL (9-16); Calcium 8.6 mg/dL (8.4-10.2); Carbon Dioxide 25 mmol/L (22-29); Chloride 109 mmol/L (96-108); Estimated Glomerular Filt Rate > 60; Glucose Random 91 mg/dL (60-115); Potassium 4.5 mmol/L (3.3-5.1); Sodium 140 mmol/L (135-145); Total Protein 6.3 g/dL (6.5-8.0)
[2024-11-27 06:13] LABS: Thyroid Stimulating Hormone 20.53 uIU/mL (0.32-4.0)
== END 2024-11-27 05:16 | disposition home or self-care (01) ==
LOC: HO.MMNH1L 05:15
PROVIDERS: Visit Provider Nurse Practitioner
DX: F41.9 Anxiety disorder, unspecified (principal)
CPT/HCPCS: 36415; 80053; 84443; 85025

== ENCOUNTER 2024-12-01 06:18 | Outpatient (REF) | payer MEDICARE, SELFPAY ==
[2024-12-01 06:04] LABS: MANUAL DIFF FLAG NO
--- OUTSIDE RECORDS SUMMARY | 2024-12-01 06:25 | XMS_ITS | Clinical Summary ---
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 Photographer Name Role Phone Garcia Doran MD Primary Care Provider [phone] Allergies No known active allergies Medications Medication [...] Department Care Team Description 11/24/2024 Telephone Neurosurgery [address] [place] [phone] Mariah Lucio [place] 11/17/2024 1:00 PM EST - 11/17/2024 3:30 PM EST Surgery [facility] OR [address] [place] [phone] Sami Coon MD HEMIARTHROPLASTY LEFT HIP, CEMENTED, POSTERIOR APPROACH [[id number] (CPT??)] 11/17/2024 12:18 PM EST Anesthesia Event [facility] OR [address] [place] [phone] Dequan Kelsey DO Walsh, Michael, DO 11/14/2024 9:22 AM EST - 11/26/2024 7:07 PM EST Hospital Encounter [facility] Medical Surgical Unit [address] [place] [phone] Román Guzman MD Flores, Carlos M, MD Kim, Tae Hyong, DO Zipagan, James T, MD Japaridze, Anna, MD Bell, Alistair A, MD Subdural hematoma (CMS/HCC) (Primary Dx); Closed fracture of left hip, initial encounter (CMS/HCC); Syncope, unspecified syncope type; Hypoxia; Hip fracture requiring operative repair, left, closed, initial encounter (CMS/HCC) Discharge Disposition: Custodial Facility 11/10/2024 2:00 PM EST Office Visit Walk-In Clinic [facility] [address] [place] [phone] Edgar Esqueda PA Fall, initial encounter (Primary Dx) 09/03/2024 9:30 AM EST Office Visit [facility] [address] [place] [phone] Garcia Doran MD Primary hypertension (Primary Dx); [...] Upcoming Encounters Date Type Department Care Team ([facility] st Contact Info) Description 12/05/2024 10:45 AM EST Appointment [facility] CT Scan [address] [place] [phone] 12/05/2024 11:15 AM EST Office Visit Neurosurgery [facility] [address] [place] [phone] Ashley Davis PA [address], [address] [place] [address] 03/06/2025 11:30 AM EDT Office Visit [facility] [address] [place] [phone] Garcia Doran MD [address] [place] [address] Health Maintenance Due Date Last Done Comments [...] this topic Medical Devices 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 Bone Cement Left: Hip [employer] 06/24/2034 [id number] / NA / [id number] Cement Bone Surg Simplex Radiopq - Sna - [id number] Implanted:Qty: 1 on 11/17/2024 by Sami Coon MD at [facility] Bone Cement Left: Hip [employer] 12/26/2026 6191-1- 0 / NA / [id number] Cement Bone Surg Simplex Radiopq - Sna - [id number] Implanted:Qty: 1 on 11/17/2024 by Sami Coon MD at [facility] Bone Cement Left: Hip [employer] 12/26/2026 6191-1- 0 / NA / [id number] Hip Stem Fem C-Cmnt 132d 6x158 - Sna - [id number] Implanted:Qty: 1 on 11/17/2024 by Sami Coon MD at [facility] Joints Hip Left: Hip [employer] [id number] 09/30/2028 4110-8346 D / NA / [id number] Hip Spacr Distl Univ 9mm - Sna - [id number] Implanted:Qty: 1 on 11/17/2024 by Sami Coon MD at [facility] Joints Hip Left: Hip [employer] [id number] 07/07/2029 9951-3820 / NA / [id number] Hip Head Bipolar Uhr 32c62mg - Sna - [id number] Implanted:Qty: 1 on 11/17/2024 by Sami Coon MD at [facility] Joints Hip Left: Hip [employer] [id number] 03/11/2028 UH1-49-26 / NA / [id number] Hip Head Cocr L Fit 26mm/-3 - Sna - [id number] Implanted:Qty: 1 on 11/17/2024 by Sami Coon MD at [facility] Joints Hip Left: Hip [employer] [id number] 01/10/2028 6260-9-02 6 / NA / [id number] Procedures Procedure Name Priority Date/Time Associated [...] requiring operative repair, left, closed, initial encounter ([facility]) TH AN ENDOTRACHEAL(NO CHARGE) Routine 11/17/2024 12:46 PM EST NM HEMIARTHROPLASTY HIP PARTIAL 11/17/2024 12:14 PM EST Hip fracture requiring operative repair, left, closed, initial encounter ([facility]) Case Notes c arm, implants, lateral [...] ECG 12-LEAD Routine 11/14/2024 9:41 AM EST NM CRITICAL CARE EACH ADDITIONAL 30 MINUTES Routine 11/14/2024 9:21 AM EST NM CRITICAL CARE EACH ADDITIONAL 30 MINUTES Routine 11/14/2024 9:21 AM EST NM CRITICAL CARE EACH ADDITIONAL 30 MINUTES Routine 11/14/2024 9:21 AM EST ECG ANNOTATED 11/14/2024 TRIIODOTHYRONINE FREE Routine 09/03/2024 10:08 AM EST [...] Routine 09/03/2024 10:08 AM EST Acquired hypothyroidism FALLS RISK ASSESSMENT Routine 02/28/2024 DEPRESSION SCREENING [...] K/mcL LAB HEMETOLOGY METHOD 11/26/2024 6:52 AM [facility] RBC 2.50(L) 3.80 - 4.80 M/mcL LAB HEMETOLOGY METHOD 11/26/2024 6:52 AM [facility] Hemoglobin 7.8(L) 11.5 - 16.0 g/dL LAB HEMETOLOGY METHOD 11/26/2024 6:52 AM [facility] Hematocrit 25.0(L) 35.0 - 47.0 % LAB HEMETOLOGY METHOD 11/26/2024 6:52 AM [facility] MCV 98.8(H) 79.0 - 98.0 FL LAB HEMETOLOGY METHOD 11/26/2024 6:52 AM [facility] MCH 30.8 27.0 - 32.0 pcg LAB HEMETOLOGY METHOD 11/26/2024 6:52 AM [facility] MCHC 31.2(L) 32.0 - 37.0 g/dL LAB HEMETOLOGY METHOD 11/26/2024 6:52 AM EST [facility] RDW 16.2(H) 11.0 - 15.0 % LAB HEMETOLOGY METHOD 11/26/2024 6:52 AM EST [facility] Platelets 478(H) 130 - 400 K/mcL LAB HEMETOLOGY METHOD 11/26/2024 6:52 AM EST [facility] MPV 9.2 7.0 - 11.0 FL LAB HEMETOLOGY METHOD 11/26/2024 6:52 AM EST [facility] NRBC 0.0 <1.0 % LAB HEMETOLOGY METHOD 11/26/2024 6:52 AM EST [facility] NRBC Absolute 0.00 <0.10 K/mcL LAB HEMETOLOGY METHOD 11/26/2024 6:52 AM [facility] Blood Venous blood specimen / Unknown Venipuncture / Unknown 11/26/2024 5:49 AM EST 11/26/2024 6:33 AM EST Jaz DANIELS LAB BLOOD ORDERABLES [facility] [address] [place] [address], * Basic metabolic panel (11/26/2024 5:49 AM EST) Only the most recent of11 resultswithin the time period is included. Sodium 138 133 - 145 mmol/L LAB CHEMISTRY METHOD 11/26/2024 7:10 AM EST [facility] Potassium 4.5 3.5 - 5.5 mmol/L LAB CHEMISTRY METHOD 11/26/2024 7:10 AM [facility] Chloride 105 96 - 110 mmol/L LAB CHEMISTRY METHOD 11/26/2024 7:10 AM EST [facility] CO2 29 21 - 32 mmol/L LAB CHEMISTRY METHOD 11/26/2024 7:10 AM [facility] Anion Gap 4 3 - 11 LAB CHEMISTRY METHOD 11/26/2024 7:10 AM [facility] Glucose 86 70 - 100 mg/dL LAB CHEMISTRY METHOD 11/26/2024 7:10 AM [facility] BUN 15 5 - 25 mg/dL LAB CHEMISTRY METHOD 11/26/2024 7:10 AM [facility] Creatinine 0.72 0.50 - 1.10 mg/dL LAB CHEMISTRY METHOD 11/26/2024 7:10 AM [facility] eGFR 86 >=60 mL/min/1. 73m2 LAB CHEMISTRY METHOD 11/26/2024 7:10 AM [facility] Comment:Calculation based on the??Chronic Kidney Disease Epidemiology Collaboration (CKD-EPI) equation refit??without adjustment for race. BUN/Creatinine Ratio 20.8 LAB CHEMISTRY METHOD 11/26/2024 7:10 AM [facility] Calcium 8.7 8.5 - 10.5 mg/dL LAB CHEMISTRY METHOD 11/26/2024 7:10 AM [facility] Blood Venous blood specimen / Unknown Venipuncture / Unknown 11/26/2024 5:49 AM EST 11/26/2024 6:33 AM EST Jaz DANIELS LAB BLOOD ORDERABLES [facility] [address] [place] [address], * CT Head wo Contrast (11/21/2024 8:31 [...] Signed Date: 11/21/2024 08:46 ET Workstation ID: [id number] Transcribed By: Self Edit Transcribed Date: 11/21/2024 [...] Signed Date: 11/21/2024 08:46 ET Workstation ID: [id number] Transcribed By: Self Edit Transcribed Date: 11/21/2024 [...] 76 mL CV PACS Left Atrium Minor [facility] 5.3 cm CV PACS Left At[facility] Major [facility] 5.5 cm CV PACS LA Area Sys [...] Proximal 1.5 cm CV PACS MV Deceleration [place] 5.0 m/s2 CV PACS E Wave Deceleration [...] with prosthesis appearing satisfactorily positioned. Telerad FRANCES ([id number]) -------- FINAL REPORT -------- Dictated By: Muna Roblero Dictated Date: 11/17/2024 16:53 ET Assigned Physician: Muna Roblero Reviewed and Electronically Signed By: Muna Roblero Signed Date: 11/17/2024 16:54 ET Workstation ID: [id number] Transcribed By: Self Edit Transcribed Date: 11/17/2024 [...] placement, with prosthesis appearingsatisfactorily positioned. Ganesh DANIELS ([id number]) -------- FINAL REPORT -------- Dictated By: Muna Roblero Dictated Date: 11/17/2024 16:53 ET Assigned Physician: Muna Roblero Reviewed and Electronically Signed By: Muna Roblero Signed Date: 11/17/2024 16:54 ET Workstation ID: [id number] Transcribed By: Self Edit Transcribed Date: 11/17/2024 [...] Signed Date: 11/18/2024 06:58 ET Workstation ID: [id number] Transcribed By: Self Edit Transcribed Date: 11/18/2024 [...] Signed Date: 11/18/2024 06:58 ET Workstation ID: [id number] Transcribed By: Self Edit Transcribed Date: 11/18/2024 06:55 ET Sami Coon MD IMG XR PROCEDURES * Tissue exam (11/17/2024 1:17 PM EST) Final Diagnosis Bone, left femoral head: -CONSISTENT WITH FRACTURE 11/19/2024 10:45 AM EST [facility] Gross Description A. Bone, left [...] with some hemorrhage around the margin. A food service representative section is submitted in one cassette following decalcification, one piece CHECO 11/19/2024 10:45 AM EST [facility] Disclaimer Unless otherwise specified, all tissue is 10% NB formalin fixed and paraffin embedded. 11/19/2024 10:45 AM EST [facility] Bone Specimen from bone / Unknown 11/17/2024 1:17 PM EST 11/17/2024 3:55 PM EST Sami Coon MD LAB PATHOLOGY ORD ERABLES [facility] [address] [place] [address], * TH AN ENDOTRACHEAL(NO CHARGE) (11/17/2024 12:46 [...] of3 resultswithin the time period is included. [facility] WBC 7.4 4.8 - 10.8 K/mcL LAB HEMETOLOGY METHOD 11/17/2024 7:26 AM [facility] RBC 3.40(L) 3.80 - 4.80 M/mcL LAB HEMETOLOGY METHOD 11/17/2024 7:26 AM [facility] Hemoglobin 10.6(L) 11.5 - 16.0 g/dL LAB HEMETOLOGY METHOD 11/17/2024 7:26 AM [facility] Hematocrit 32.3(L) 35.0 - 47.0 % LAB HEMETOLOGY METHOD 11/17/2024 7:26 AM [facility] MCV 94.2 79.0 - 98.0 FL LAB HEMETOLOGY METHOD 11/17/2024 7:26 AM [facility] MCH 30.9 27.0 - 32.0 pcg LAB HEMETOLOGY METHOD 11/17/2024 7:26 AM [facility] MCHC 32.8 32.0 - 37.0 g/dL LAB HEMETOLOGY METHOD 11/17/2024 7:26 AM [facility] RDW 15.3(H) 11.0 - 15.0 % LAB HEMETOLOGY METHOD 11/17/2024 7:26 AM [facility] Platelets 150 130 - 400 K/mcL LAB HEMETOLOGY METHOD 11/17/2024 7:26 AM [facility] MPV 10.6 7.0 - 11.0 FL LAB HEMETOLOGY METHOD 11/17/2024 7:26 AM [facility] NRBC 0.0 <1.0 % LAB HEMETOLOGY METHOD 11/17/2024 7:26 AM [facility] NRBC Absolute 0.00 <0.10 K/mcL LAB HEMETOLOGY METHOD 11/17/2024 7:26 AM [facility] Neutrophils Relative 73.8 % LAB HEMETOLOGY METHOD 11/17/2024 7:26 AM [facility] Lymphocytes Relative 11.4 % LAB HEMETOLOGY METHOD 11/17/2024 7:26 AM [facility] Monocytes Relative 9.7 % LAB HEMETOLOGY METHOD 11/17/2024 7:26 AM [facility] Eosinophils Relative 4.3 % LAB HEMETOLOGY METHOD 11/17/2024 7:26 AM [facility] Basophils Relative 0.3 % LAB HEMETOLOGY METHOD 11/17/2024 7:26 AM [facility] Immature Granulocytes Relative 0.5 % LAB HEMETOLOGY METHOD 11/17/2024 7:26 AM [facility] Neutrophils Absolute 5.48 1.50 - 7.00 K/mcL LAB HEMETOLOGY METHOD 11/17/2024 7:26 AM [facility] Lymphocytes Absolute 0.85(L) 1.00 - 5.00 K/mcL LAB HEMETOLOGY METHOD 11/17/2024 7:26 AM [facility] Monocytes Absolute 0.72 0.20 - 1.00 K/mcL LAB HEMETOLOGY METHOD 11/17/2024 7:26 AM [facility] Eosinophils Absolute 0.32 0.00 - 0.50 K/mcL LAB HEMETOLOGY METHOD 11/17/2024 7:26 AM [facility] Basophils Absolute 0.02 0.00 - 0.20 K/mcL LAB HEMETOLOGY METHOD 11/17/2024 7:26 AM [facility] Immature Granulocytes Absolute 0.04(H) 0.00 - 0.03 K/mcL LAB HEMETOLOGY METHOD 11/17/2024 7:26 AM EST [facility] Blood Venous blood specimen / Unknown Venipuncture / Unknown 11/17/2024 6:43 AM EST 11/17/2024 7:07 AM EST Bhavin Garcia MD LAB BLOOD ORDERABLES [facility] [address] [place] [address], * CT Angio Chest wo and/or w [...] Signed Date: 11/16/2024 10:45 ET Workstation ID: [id number] Transcribed By: Self Edit Transcribed Date: 11/16/2024 10:26 ET Narrative 11/16/2024 10:45 AM EST EXAMINATION: CTA chest with contrast. CLINICAL INDICATION: SOB. Hip fracture. Rule out PE. COMPARISON: Chest x-ray 11/16/2024. TECHNIQUE: 2.5 mm thin axial and reformatted 3 mm thin sagittal and coronal images of chest were obtained following IV 90 mL Isovue-370. Scanner: Shoobs 64 slice VCT Dose reduction technique: ASIR [...] were obtained following IV 90 mL Isovue-370.Scanner: Shoobs 64 slice VCT Dose reduction technique: ASIR [...] Signed Date: 11/16/2024 10:45 ET Workstation ID: [id number] Transcribed By: Self Edit Transcribed Date: 11/16/2024 10:26 ET Rochelle DANIELS IMG CT PROCEDURES * Respiratory virus panel molecular study (11/16/2024 5:44 AM EST) Adenovirus Detection by PCR Not Detected Not Detected LAB MICROBIOLOGY METHOD 11/16/2024 7:20 AM EST [facility] Influenza A PCR Not Detected Not Detected LAB MICROBIOLOGY METHOD 11/16/2024 7:20 AM EST [facility] Influenza B PCR Not Detected Not Detected LAB MICROBIOLOGY METHOD 11/16/2024 7:20 AM EST [facility] Coronavirus 229E Not Detected Not Detected LAB MICROBIOLOGY METHOD 11/16/2024 7:20 AM [facility] Coronavirus HKU1 Not Detected Not Detected LAB MICROBIOLOGY METHOD 11/16/2024 7:20 AM [facility] Coronavirus OC43 Not Detected Not Detected LAB MICROBIOLOGY METHOD 11/16/2024 7:20 AM [facility] Coronavirus NL63 Not Detected Not Detected LAB MICROBIOLOGY METHOD 11/16/2024 7:20 AM [facility] Parainfluenza Virus 1 Not Detected Not Detected LAB MICROBIOLOGY METHOD 11/16/2024 7:20 AM [facility] Parainfluenza Virus 2 Not Detected Not Detected LAB MICROBIOLOGY METHOD 11/16/2024 7:20 AM [facility] Parainfluenza Virus 3 Not Detected Not Detected LAB MICROBIOLOGY METHOD 11/16/2024 7:20 AM [facility] Parainfluenza Virus 4 Not Detected Not Detected LAB MICROBIOLOGY METHOD 11/16/2024 7:20 AM [facility] RSV PCR Not Detected Not Detected LAB MICROBIOLOGY METHOD 11/16/2024 7:20 AM [facility] Human Metapneumovirus A and B Not Detected Not Detected LAB MICROBIOLOGY METHOD 11/16/2024 7:20 AM EST [facility] Rhinovirus/Entero virus Not Detected Not Detected LAB MICROBIOLOGY METHOD 11/16/2024 7:20 AM EST [facility] Bordetella pertussis Not Detected Not Detected LAB MICROBIOLOGY METHOD 11/16/2024 7:20 AM [facility] Bordetella parapertussis Not Detected Not Detected LAB MICROBIOLOGY METHOD 11/16/2024 7:20 AM [facility] Mycoplasma pneumo by PCR Not Detected Not Detected LAB MICROBIOLOGY METHOD 11/16/2024 7:20 AM [facility] Chlamydia pneumoniae Not Detected Not Detected LAB MICROBIOLOGY METHOD 11/16/2024 7:20 AM [facility] SARS COV-2 Not Detected Not Detected LAB MICROBIOLOGY METHOD 11/16/2024 7:20 AM [facility] Swab Structure of right anterior naris / Unknown Non-blood Collection / Unknown 11/16/2024 5:44 AM EST 11/16/2024 6:27 AM EST [facility] - 11/16/2024 7:20 AM EST Testing was performed using the [employer] Respiratory Pathogen PCR Assay. All results must [...] DANIELS LAB MICROBIOLOGY - G ENERAL ORDERABLES [facility] [address] [place] [address], * (ABNORMAL) Arterial blood gas (11/16/2024 5:42 AM EST) pH, Arterial 7.47(H) 7.35 - 7.45 pH 11/16/2024 6:05 AM EST [facility] pCO2, Arterial 32(L) 35 - 45 mmHg 11/16/2024 6:05 AM [facility] pO2, Arterial 56(LL) 80 - 100 mmHg 11/16/2024 6:05 AM [facility] HCO3, Arterial 24.8 22.0 - 26.0 mmol/L 11/16/2024 6:05 AM [facility] O2 Sat, Arterial 89.9(L) 95.0 - 98.0 % 11/16/2024 6:05 AM [facility] Base Excess, Arterial 0.1 -2.0 - 2.0 mmol/L 11/16/2024 6:05 AM [facility] Al Test Pass Pass, Unresponsi ve, Line 11/16/2024 6:05 AM [facility] FIO2 21.00 11/16/2024 6:05 AM [facility] Blood Arterial blood specimen / Unknown Arterial Puncture / Unknown 11/16/2024 5:42 AM EST 11/16/2024 5:47 AM EST Rochelle DANIELS LAB BLOOD ORDERABLES [facility] [address] [place] [address], * XR Chest 1 View (11/16/2024 4:48 [...] Signed Date: 11/16/2024 07:11 ET Workstation ID: [id number] Transcribed By: Self Edit Transcribed Date: 11/16/2024 [...] Signed Date: 11/16/2024 07:11 ET Workstation ID: [id number] Transcribed By: Self Edit Transcribed Date: 11/16/2024 07:09 ET Rochelle DANIELS IMG XR PROCEDURES * Magnesium (11/15/2024 6:27 AM EST) Magnesium 2.0 1.9 - 2.6 mg/dL LAB CHEMISTRY METHOD 11/15/2024 8:39 AM EST [facility] Blood Venous blood specimen / Unknown Venipuncture / Unknown 11/15/2024 6:27 AM EST 11/15/2024 7:04 AM EST Demarcus Villalobos MD LAB BLOOD ORDERABLES Performing Organization Address [facility]/ZIP Co de Phone Number [facility] [address] [place] [address], [place] [phone] * Vitamin B12 (11/15/2024 6:27 AM EST) Pathologist [facility] Vitamin B-12 265 250 - 900 pcg/mL LAB CHEMISTRY METHOD 11/15/2024 6:00 PM EST [facility] Blood Venous blood specimen / Unknown Venipuncture / Unknown 11/15/2024 6:27 AM EST 11/15/2024 7:04 AM EST Bhavin Garcia MD LAB BLOOD ORDERABLES Performing Organization Address [facility]/ZIP Co de Phone Number [facility] [address] [place] [address], [place] [phone] * Activated partial thromboplastin time (11/14/2024 8:37 PM EST) [facility] aPTT 32.2 24.1 - 39.3 sec LAB COAGULATION METHOD 11/14/2024 9:02 PM EST [facility] Blood Venous blood specimen / Unknown Venipuncture / Unknown 11/14/2024 8:37 PM EST 11/14/2024 8:49 PM EST Hardik DANIELS LAB BLOOD ORDERABLES Performing Organization Address City/[facility]/ZIP Co de Phone Number [facility] [address] [place] [address], [place] [phone] * Prothrombin time with INR (11/14/2024 8:37 PM EST) Pathologist [facility] Protime 12.0 10.6 - 13.9 sec LAB COAGULATION METHOD 11/14/2024 9:02 PM EST [facility] INR 1.0 LAB COAGULATION METHOD 11/14/2024 9:02 PM EST [facility] Blood Venous blood specimen / Unknown Venipuncture / Unknown 11/14/2024 8:37 PM EST 11/14/2024 8:49 PM EST Hardik DANIELS LAB BLOOD ORDERABLES [facility] [address] [place] [address], [place] [phone] * (ABNORMAL) Urinalysis with reflex microscopic and culture (11/14/2024 1:58 PM EST) Specific [place] Urine 1.021 1.003 - 1.030 LAB URINALYSIS - AUTOMATED METHOD 11/14/2024 2:32 PM [facility] pH, Urine 6.0 5.0 - 8.0 pH LAB URINALYSIS - AUTOMATED METHOD 11/14/2024 2:32 PM [facility] Leukocytes, Urine Small(A) Negative LAB URINALYSIS - AUTOMATED METHOD 11/14/2024 2:32 PM [facility] Nitrite, Urine Negative Negative LAB URINALYSIS - AUTOMATED METHOD 11/14/2024 2:32 PM [facility] Protein, Urine 30(A) <=Trace mg/dL LAB URINALYSIS - AUTOMATED METHOD 11/14/2024 2:32 PM [facility] Glucose, Urine Negative Negative mg/dL LAB URINALYSIS - AUTOMATED METHOD 11/14/2024 2:32 PM [facility] Ketones, Urine Trace(A) Negative mg/dL LAB URINALYSIS - AUTOMATED METHOD 11/14/2024 2:32 PM [facility] Urobilinogen , Urine 1.0 0.2 - 1.0 mg/dL LAB URINALYSIS - AUTOMATED METHOD 11/14/2024 2:32 PM [facility] Bilirubin, Urine Negative Negative LAB URINALYSIS - AUTOMATED METHOD 11/14/2024 2:32 PM [facility] Blood, Urine Moderate(A) Negative LAB URINALYSIS - AUTOMATED METHOD 11/14/2024 2:32 PM [facility] RBC, Urine 9.2(H) 0 - 4 /HPF LAB URINALYSIS - AUTOMATED METHOD 11/14/2024 2:32 PM [facility] WBC, Urine 28.1(H) 0 - 4 /HPF LAB URINALYSIS - AUTOMATED METHOD 11/14/2024 2:32 PM [facility] Squamous Epithelial, Urine 37 0 - 60 /LPF LAB URINALYSIS - AUTOMATED METHOD 11/14/2024 2:32 PM [facility] Bacteria, Urine Many(A) Negative /HPF LAB URINALYSIS - AUTOMATED METHOD 11/14/2024 2:32 PM [facility] Hyaline Casts, Urine 0.8 0 - 3 /LPF LAB URINALYSIS - AUTOMATED METHOD 11/14/2024 2:32 PM [facility] Urine Urinary bladder structure / Unknown Non-blood Collection / Unknown 11/14/2024 1:58 PM EST 11/14/2024 2:20 PM EST Aleida DANIELS LAB URINE ORDERABLES [facility] [address] [place] [address], * Estrada urine culture tube (11/14/2024 1:58 PM EST) Extra Tube Hold for add-ons. 11/14/2024 4:02 PM EST [facility] Comment:Auto resulted. Urine Urinary bladder structure / Unknown Non-blood Collection / Unknown 11/14/2024 1:58 PM EST 11/14/2024 2:20 PM EST [facility]ida [facility]EL[facility] LAB URINE ORDERABLES [facility] [address] [place] [address], * (ABNORMAL) Culture urine (11/14/2024 1:58 PM EST) Culture, Urine >100,000 CFU/mL Escherichia coli ESBL(A) CLINT 11/17/2024 11:51 AM EST [facility] Comment:THIS ORGANISM IS POS ITIVE [...] DANIELS LAB MICROBIOLOGY - G ENERAL ORDERABLES [facility] [address] [place] [address], * CT Lower Extremity wo Contrast Left (11/14/2024 12:18 PM EST) Anatomical Region Laterality Modality Lower Extremities Left Computed Tomog ana laura 11/14/2024 12:2 6 PM EST Impressions 11/14/2024 12:30 PM EST Impacted and angulated left femoral neck fracture -------- FINAL REPORT -------- Dictated By: JHONNY BARRERA Dictated Date: 11/14/2024 12:26 ET Assigned Physician: JHONNY BARRERA Reviewed and Electronically Signed By: JHONYN BARRERA Signed Date: 11/14/2024 12:30 ET Workstation ID: [id number] Transcribed By: Self Edit Transcribed Date: 11/14/2024 [...] Signed Date: 11/14/2024 12:30 ET Workstation ID: [id number] Transcribed By: Self Edit Transcribed Date: 11/14/2024 12:26 ET Aleida DANIELS IMG CT PROCEDURES * Troponin I high sensitivity (11/14/2024 11:25 AM EST) Only the most recent of2 resultswithin the time period is included. High Sensitivity Troponin I 10 <=54 ng/L LAB CHEMISTRY METHOD 11/14/2024 12:49 PM EST [facility] Blood Venous blood specimen / Unknown Venipuncture / Unknown 11/14/2024 11:25 AM EST 11/14/2024 11:56 AM EST Narrative [facility] - 11/14/2024 12:49 PM EST High levels of biotin in samples may falsely decrease hsTroponin values. ??Use caution when interpreting hsTroponin results in patients taking biotin who exhibit renal impairment (eGFR <60) or in patients taking more than 20 mg/day of biotin. Aleida DANIELS LAB BLOOD ORDERABLES [facility] [address] [place] [address], * XR Hip 2-3 Views Left (11/14/2024 [...] Signed Date: 11/14/2024 11:08 ET Workstation ID: [id number] Transcribed By: Self Edit Transcribed Date: 11/14/2024 [...] Date: 11/14/2024 11:05 ET Assigned Physician: Vinayak Austni Reviewed and Electronically Signed By: Vinayak Austin Signed Date: 11/14/2024 11:08 ET Workstation ID: [id number] Transcribed By: Self Edit Transcribed Date: 11/14/2024 11:05 ET Aleida DANIELS IMG XR PROCEDURES * (ABNORMAL) Thyroid stimulating hormone (11/14/2024 9:58 AM EST) TSH 48.69(H) 0.40 - 4.00 mcIU/mL LAB CHEMISTRY METHOD 11/15/2024 6:35 AM EST [facility] Blood Venous blood specimen / Unknown Venipuncture / Unknown 11/14/2024 9:58 AM EST 11/14/2024 10:25 AM EST Demarcus Villalobos MD LAB BLOOD ORDERABLES Performing Organization Address City/[facility]/ZIP Co de Phone Number [facility] [address] [place] [address], [place] [phone] * (ABNORMAL) Creatine kinase (11/14/2024 9:58 AM EST) [facility] Total CK 668(H) 22 - 269 unit/L LAB CHEMISTRY METHOD 11/14/2024 11:20 AM EST [facility] Blood Venous blood specimen / Unknown Venipuncture / Unknown 11/14/2024 9:58 AM EST 11/14/2024 10:25 AM EST Aleida DANIELS LAB BLOOD ORDERABLES Performing Organization Address [facility]/ZIP Co de Phone Number [facility] [address] [place] [address], [place] [phone] * (ABNORMAL) Comprehensive metabolic panel (11/14/2024 9:58 AM EST) Only the most recent of2 resultswithin the time period is included. [facility] Sodium 137 133 - 145 mmol/L LAB CHEMISTRY METHOD 11/14/2024 11:56 AM [facility] Potassium 3.6 3.5 - 5.5 mmol/L LAB CHEMISTRY METHOD 11/14/2024 11:56 AM [facility] Chloride 107 96 - 110 mmol/L LAB CHEMISTRY METHOD 11/14/2024 11:56 AM [facility] CO2 25 21 - 32 mmol/L LAB CHEMISTRY METHOD 11/14/2024 11:56 AM [facility] Anion Gap 5 3 - 11 LAB CHEMISTRY METHOD 11/14/2024 11:56 AM [facility] Glucose 130(H) 70 - 100 mg/dL LAB CHEMISTRY METHOD 11/14/2024 11:56 AM [facility] BUN 24 5 - 25 mg/dL LAB CHEMISTRY METHOD 11/14/2024 11:56 AM [facility] Creatinine 0.96 0.50 - 1.10 mg/dL LAB CHEMISTRY METHOD 11/14/2024 11:56 AM [facility] eGFR 61 >=60 mL/min/1. 73m2 LAB CHEMISTRY METHOD 11/14/2024 11:56 AM [facility] Comment:Calculation based on the??Chronic Kidney Disease Epidemiology Collaboration (CKD-EPI) equation refit??without adjustment for race. BUN/Creatinine Ratio 25.0 LAB CHEMISTRY METHOD 11/14/2024 11:56 AM [facility] Calcium 8.9 8.5 - 10.5 mg/dL LAB CHEMISTRY METHOD 11/14/2024 11:56 AM [facility] AST (SGOT) 52(H) 10 - 42 unit/L LAB CHEMISTRY METHOD 11/14/2024 11:56 AM [facility] Comment:Results verified by repeat testing ALT (SGPT) 40 10 - 60 unit/L LAB CHEMISTRY METHOD 11/14/2024 11:56 AM [facility] Comment:Results verified by repeat testing Alkaline Phosphatase 81 42 - 121 unit/L LAB CHEMISTRY METHOD 11/14/2024 11:56 AM [facility] Total Protein 6.8 6.0 - 8.0 g/dL LAB CHEMISTRY METHOD 11/14/2024 11:56 AM [facility] Albumin 3.9 3.2 - 5.0 g/dL LAB CHEMISTRY METHOD 11/14/2024 11:56 AM [facility] Total Bilirubin 1.0 0.0 - 1.4 mg/dL LAB CHEMISTRY METHOD 11/14/2024 11:56 AM [facility] Blood Venous blood specimen / Unknown Venipuncture / Unknown 11/14/2024 9:58 AM EST 11/14/2024 10:25 AM EST Aleida DANIELS LAB BLOOD ORDERABLES Performing Organization Address [facility] Co de Phone Number [facility] [address] [place] [address], * ECG 12 lead (11/14/2024 9:41 AM EST) Ventricular Rate ECG 80 BPM GEMUSE Atrial Rate 80 BPM GEMUSE P-R Interval 126 ms GEMUSE QRS Duration 80 ms GEMUSE Q-T Interval 430 ms GEMUSE QTc 495 ms GEMUSE R [place] 31 degrees GEMUSE T [place] -53 degrees GEMUSE ECG Interpretation Normal sinus rhythm Nonspecific T wave abnormality Abnormal ECG No previous ECGs available Confirmed by HELADIO SIMMONS ([id number]) on 11/14/2024 5:33:44 PM GEMUSE 11/14/2024 9:41 AM EST 11/14/2024 5:33 PM EST Román Guzman MD ECG ORDERABLES Performing Organization Address [facility] Co de Phone Number GEMUSE * NM CRITICAL CARE EACH ADDITIONAL 30 MINUTES, NM CRITICAL CARE EACH ADDITIONAL 30 MINUTES, NM CRITICAL CARE EACH ADDITIONAL 30 MINUTES (11/14/2024 [...] Guzman MD IN CLINIC/BEDSIDE O RDERABLES * ECG-Annotated (11/14/2024) Provider Onbase MD ECG ORDERABLES * (ABNORMAL) Thyroid stimulating hormone with reflex to free t4 and free t3 (09/03/2024 10:08 AM EST) TSH 11.73(H) 0.40 - 4.00 mcIU/mL LAB CHEMISTRY METHOD 09/03/2024 4:51 PM EST [facility] Blood Venous blood specimen / Unknown Venipuncture / Unknown 09/03/2024 10:08 AM EST 09/03/2024 10:08 AM EST Garcia Doran MD LAB BLOOD ORDERABLES Performing Organization Address City/[facility]/ZIP Co de Phone Number [facility] [address] [place] [address], [place] [phone] * Free thyroxine with reflex to free triiodothyronine (09/03/2024 10:08 AM EST) Free T4 1.12 0.70 - 1.80 ng/dL LAB CHEMISTRY METHOD 09/03/2024 5:17 PM EST [facility] Blood Venous blood specimen / Unknown Venipuncture / Unknown 09/03/2024 10:08 AM EST 09/03/2024 10:08 AM EST Garcia Doran MD LAB BLOOD ORDERABLES Performing Organization Address City/[facility]/ZIP Co de Phone Number [facility] [address] [place] [address], [place] [phone] * (ABNORMAL) Lipid panel with reflex to direct LDL (09/03/2024 10:08 AM EST) Cholesterol 257(H) 0 - 200 mg/dL LAB CHEMISTRY METHOD 09/03/2024 4:57 PM [facility] Triglycerides 94 0 - 150 mg/dL LAB CHEMISTRY METHOD 09/03/2024 4:57 PM [facility] HDL 90 >=40 mg/dL LAB CHEMISTRY METHOD 09/03/2024 4:57 PM [facility] LDL Calculated 148(H) 0 - 100 mg/dL LAB CHEMISTRY METHOD 09/03/2024 4:57 PM [facility] VLDL Cholesterol Anderson 18.8 mg/dL LAB CHEMISTRY METHOD 09/03/2024 4:57 PM [facility] Non HDL Chol. (LDL+VLDL) 167(H) <145 mg/dL LAB CHEMISTRY METHOD 09/03/2024 4:57 PM [facility] Chol/HDL Ratio 2.9 0.0 - 4.4 LAB CHEMISTRY METHOD 09/03/2024 4:57 PM [facility] Blood Venous blood specimen / Unknown Venipuncture / Unknown 09/03/2024 10:08 AM EST 09/03/2024 10:08 AM EST Garcia Doran MD LAB BLOOD ORDERABLES [facility] [address] [place] [address], * (ABNORMAL) Triiodothyronine free (09/03/2024 10:08 AM EST) T3, Free 205(L) 230 - 420 pcg/dL LAB CHEMISTRY METHOD 09/03/2024 5:42 PM [facility] Blood Venous blood specimen / Unknown Venipuncture / Unknown 09/03/2024 10:08 AM EST 09/03/2024 10:08 AM EST Garcia Doran MD LAB BLOOD ORDERABLES [facility] [address] [place] [address], * Falls Risk Assessment (02/28/2024) Falls Risk Assessment ABSTRACTED Historical Provider [facility] * Depression Screening (10/25/2023) Depression Screening ABSTRACTED Historical [facility] * DXA BONE DENSITY STUDY 1+ [...] spine and left hip were obtained using [employer] W (S/N [id number]). ?? COMPARISON: None ?? FINDINGS: L1-L3-L4 BMD: [...] lumbar spineand left hip were obtained using [employer] W (S/N [id number]). 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 Care Teams Photoengraving Photographer Relationship Specialty Start Date End Date Garcia Doran MD [facility] [place] [address] PCP - General Internal Medicine 01/11/22
--- OUTSIDE RECORDS SUMMARY | 2024-12-01 06:25 | XMS_ITS ---
Author Organization [facility] Address [address] [place] [address] Phone Care Team Providers Care Aerodynamicist Name Role Phone [facility] Unavailable [phone] Christofer Torres MD Primary Care Provider [phone] Plan of Treatment Future Appointments Date Time Location Provi petr Post Op Visit/Follow Up 12/01/2024 9:40AM [facility] Sami Coon MD Last Documented On 5 8:02AM ; [facility] Assessments Includes: Assessments for all patient encounters No Assessments Recorded Medical Equipment - Implanted Devices Includes: Current and historical Devices No Medical Equipment Recorded Medications Administered Includes: Administered Medications in patient's chart No Administered Medications Recorded Results Includes: Results from 12/01/2023 through 12/01/2024 No Results Recorded For Specified Dates History of Present Illness History of Present Illness not supported for this document type No History of Present Illness Recorded Social History No Social History Recorded - Smoking Status Unknown Procedures and Surgical History Includes: Procedures from 12/01/2023 through 12/01/2024 Procedures Code Diagnosis Performing Provider Service Location Service Date Treat Thigh Fracture (Left) 56492 Fracture of unsp part of neck of left femur, init Sami Coon MD [facility] 11/17/2024 Last Documented On 5 12:44PM ; [facility] Medical History Includes: Medical History in patient's [...] this document type No Physical Exam Recorded Encounters Includes: Encounters from 12/01/2023 through 12/01/2024 Encounter Provider Location Date Check-In Time Check-Out Time Diagnosis Post Op Visit/Follow Up Sami Coon MD [facility], 12/01/19 25 9:40AM 11:59PM Insurance Includes: Active Insurance Policies Plan Name Member ID Group # Subscriber Relationship Effect niall Dates 1 - [facility] [id number] Isabela Rios Self Clinical Notes Includes: Signed Clinical Notes starting from 10/08/2022 No Clinical Notes Recorded
--- OUTSIDE RECORDS SUMMARY | 2024-12-01 06:25 | XMS_ITS | Encounter Summary ---
Author Organization [facility] Address [address] [place] [address] Care Team Providers Care Commercial Account Executive Name Role Phone Garcia Doran MD Primary Care Provider [phone] Reason for Visit * Reason Comments Fall Fall backwards from a standing position. Pain in legs bilateral, L shoulder. Onset Sunday 15:00(approx). Encounter Details Date Type Department Care Team (Late st Contact Info) Description 11/10/2024 2:00 PM EST Office Visit [facility] [place] [address] [place] [phone] Edgar Esqueda PA [address] [place] [address] Fall, initial encounter (Primary Dx) Social History [...] for your loved ones. For example, child & adolescent psychiatrist or elderly care for an older adult? [...] Info) Description 12/05/2024 10:45 AM EST Appointment [facility] CT Scan [address] [place] [address] 12/05/2024 11:15 AM EST Office Visit Neurosurgery [facility] [address] [address] Ashley Davis PA 175 [facility], [address] [address] 03/06/2025 11:30 AM EDT Office Visit Cable Mechanic - [place] [address] [place] [address] Garcia Doran MD [address] [place] [address] documented as of this encounter Visit Diagnoses Diagnosis Fall, initial encounter- Primary documented in this encounter Additional Health Concerns Assessment Noted Time PHQ-9 Depression Total Score: 5 08/31/20 24 9:42 AM EST documented as of this encounter Care Teams Commercial Account Executive Relationship Specialty Start Date End Date Garcia Doran MD [address] [place] [address] PCP - General Internal Medicine 01/11/22 documented as of this encounter
--- OUTSIDE RECORDS SUMMARY | 2024-12-01 06:26 | XMS_ITS | Encounter Summary ---
Author Organization [facility] Address [address] [place] [address] Care Team Providers Care Steel Layer Name Role Phone Garcia Doran MD Primary Care Provider [phone] Reason for Visit * Auth/Cert Specialty Diagnoses / Procedures Referred By Gia t Referred To Contact Diagnoses Acute subdural hematoma (CMS/HCC) Procedures . Demarcus Villalobos MD [address] [place] [phone] [facility] Emergency [address] [place] [address] Referral ID Status Reason Start Date Expiration Date Visits Re quested Visits Authorized [id number] 1 1 Encounter Details Date Type Department Care Team (Late st Contact Info) Description 11/17/2024 12:18 PM EST Anesthesia Event [facility] Main OR [address] [place] [address] Dequan Kelsey DO [address] [place] [address] Franck Ha DO [address] [place] [address] Anesthesia Record Procedure Summary Procedure Name Responsible [...] for your loved ones. For example, child caregiver or elderly care for an older adult? [...] of this encounter Progress Notes * Dequan Kelsey DO - 11/18/2024 8:47 AM EST Patient: Isabela Rios Procedure Summary Date: 11/17/24 Room / Location: [facility] OR 03 / [facility] OR Anesthesia Start: 1218 Anesthesia Stop: 1454 Procedure: HEMIARTHROPLASTY LEFT HIP, CEMENTED, POSTERIOR APPROACH (Left: Hip) Diagnosis: Hip fracture requiring operative repair, left, closed, initial encounter ([facility]) Surgeons: Sami Coon MD Responsible Provider: Dequan [...] Info) Description 12/05/2024 10:45 AM EST Appointment [facility] CT Scan [address] [place] [phone] 12/05/2024 11:15 AM EST Office Visit [place] [facility] [place] [address] [facility] [address] [place] [phone] Ashley Davis PA [address] [facility], [address] [place] [address] 03/06/2025 11:30 AM EDT Office Visit Oracle Application Consultant - [place] [address] [place] [phone] Garcia Doran MD [address] [place] [address] documented as of this encounter Procedures Procedure [...] documented as of this encounter Care Teams Steel Layer Relationship Specialty Start Date End Date Garcia Doran MD [address] [place] [address] [place] [address] PCP - General Internal Medicine 01/11/22 documented as of this encounter
--- OUTSIDE RECORDS SUMMARY | 2024-12-01 06:26 | XMS_ITS | Encounter Summary ---
Author Organization [facility] Address [address] [place] [address] Care Team Providers Care Spring Bender Name Role Phone Garcia Doran MD Primary Care Provider [phone] Encounter Details Date Type Department Care Team (Late st Contact Info) Description 11/24/2024 Telephone Neurosurgery [place] [facility] [address] [facility] [address] [place] [address] Mariah Lucio [place] Social History [...] care for your loved ones. For example, registered nurse maternal child or elderly care for an older adult? [...] Per Patrick patient will be headed to [facility] today or tomorrow, I called the floor at [facility] and also spoke with community associate who will make sure details of these appointments are given to rehab facility. documented in this encounter Plan of Treatment Upcoming Encounters Date Type Department Care Team ([facility] Contact Info) Description 12/05/2024 10:45 AM EST Appointment [facility] CT Scan [address] [place] [address] 12/05/2024 11:15 AM EST Office Visit Neurosurgery [place] [facility] 175 [facility] [address] [place] [phone] Ashley Davis PA 175 [facility], [address] [place] [address] 03/06/2025 11:30 AM EDT Office Visit Mixing Plant Dumper - [place] [address] [place] [address] Garcia Doran MD [address] [place] [address] documented as of this encounter Visit Diagnoses Not on filedocumented in this encounter Additional Health Concerns Infection Onset Date Last Indicated Resolved Time ESBL 11/14/2024 11/14/2024 Assessment Noted Time PHQ-9 Depression Total Score: 5 08/31/20 24 9:42 AM EST documented as of this encounter Care Teams Spring Bender Relationship Specialty Start Date End Date Garcia Doran MD [address] [facility] [address] PCP - General Internal Medicine 01/11/22 documented as of this encounter
--- OUTSIDE RECORDS SUMMARY | 2024-12-01 06:26 | XMS_ITS | Clinical Summary ---
Author Organization [facility] Address [address] [place] [address] Phone Care Team Providers Care Photonic Laboratory Technician Name Role Phone [facility] Unavailable [phone] Christofer Torres MD Primary Care Provider [phone] Reason for Visit and Chief Complaint Post Op Visit/Follow Up Plan of Treatment Future Appointments Date Time Location Provi petr Post Op Visit/Follow Up 12/01[facility]24 9:40AM [facility] Last Documented On 8:02AM ; [facility] Assessments Includes: Assessments from this encounter No Assessments Recorded Medical Equipment - Implanted Devices Includes: Current Devices No Medical Equipment Recorded Medications Administered Includes: Administered Medications from this encounter No Administered Medications Recorded Results Includes: Results discussed during this encounter No Results Recorded For Specified Dates History of Present Illness Includes: History of Present Illness from this encounter No History of Present Illness Recorded Social History No Social History Recorded - Smoking Status Unknown Medical History Includes: Medical History addressed during this encounter No Medical History Recorded Family History Includes: Family History addressed during this encounter No Family History Recorded Review of Systems Includes: Review of Systems from this encounter No Review of Systems Recorded Mental Status Includes: Mental Status from this encounter No Mental Status Recorded Functional Status Includes: Functional Status from this encounter No Functional Status Recorded Physical Exam Includes: Physical Exam from this encounter No Physical Exam Recorded Encounters Encounter Provider Location Date Check-In Time Check-Out Time Diagnosis Post Op Visit/Follow Up Sami Coon MD [facility] 12/01/19 25 9:40AM 11:59PM Insurance Includes: Active Insurance Policies Plan Name Member ID Group # Subscriber Relationship Effect niall Dates 1 - [facility] [id number] Isabela Rios Self Clinical Notes Includes: Clinical Notes from this encounter No Clinical Notes Recorded
--- OUTSIDE RECORDS SUMMARY | 2024-12-01 06:26 | XMS_ITS ---
Care Plan - [facility] Created on: December 01, 2024 Isabela Rios : 1945 Sex: Female Author Organization [facility] Address [address] [place] [address] Phone Care Team Providers Care Junior Software Engineer Name Role Phone [facility] Unavailable [phone] Christofer Torres MD Primary Care Provider [phone]
--- OUTSIDE RECORDS SUMMARY | 2024-12-01 06:26 | XMS_ITS | Encounter Summary ---
Author Organization [facility] Address [address] [place] [address] Care Team Providers Care Clothes Wringer Name Role Phone Garcia Doran MD Primary Care Provider [phone] Reason for Visit * Reason Comments Fall Altered Mental Status * Auth/Cert Specialty Diagnoses / Procedures Referred By Contac t Referred To Contact Diagnoses Acute subdural hematoma (CMS/HCC) Procedures . Demarcus Villalobos MD [address] [place] [phone] [facility] Emergency [address] [place] [address] Referral ID Status Reason Start Date Expiration Date Visits Re quested Visits Authorized [id number] 1 1 Encounter Details Date Type Department Care Team (Late st Contact Info) Description 11/17/2024 1:00 PM EST - 11/17/2024 3:30 PM EST Surgery [facility] Main OR [address] [place] [address] Elva Hester MD [address] [place] [address] HEMIARTHROPLASTY LEFT HIP, CEMENTED, POSTERIOR APPROACH [82909 (CPT??)] Surgery Details Date/Time Status Location OR Service Patient Class Case Class Case Type Trauma Case? 11/17/2024 1:00 PM Posted [facility] OR OR Orthopedics Inpatient Panel 1 Procedure [...] for your loved ones. For example, child care assistant or elderly care for an older adult? [...] Height 165.1 cm (5' 5 ) 11/14/2024 9:42 AM EST Body Mass Index 24.13 11/18/2024 [...] Doran MD Admission Date 11/14/2024 Discharge Date 11/26/2024 Summary of Hospital Problems Primary Discharge Diagnosis: Acute subdural hematoma (CMS/HCC) Secondary Discharge Diagnosis: Left hip fracture Discharge Disposition Jail Facility Code Status at Discharge: Prior Hospital Course Summary Presenting Problem/History of Present Illness Subdural hematoma (CMS/HCC) [S06.5XAA] Acute subdural hematoma ([facility]) [S06.5XAA] Closed fracture of left hip, initial encounter ([facility]) [S72.002A] Chief Complaint Patient presents with Fall Altered Mental Status HPI 79-year-old former smoker woman with past medical history significant for hypertension, dyslipidemia, hypothyroidism, osteopenia, depression and anxiety was brought to [facility] ED after her found her around 3 [...] coronal images of brain were obtained. Scanner: ZapMe 64 slice VCT Dose reduction technique: ASIR [...] Andaigned Date: 11/15/2024 08:30 ET Workstation ID: [id number] Transcribed By: Self Edit Transcribed Date: 11/15/2024 [...] Signed Date: 11/14/2024 14:51 ET Workstation ID: [id number] Transcribed By: Self Edit Transcribed Date: 11/14/2024 [...] Signed Date: 11/14/2024 12:30 ET Workstation ID: [id number] Transcribed By: Self Edit Transcribed Date: 11/14/2024 [...] Signed Date: 11/14/2024 11:08 ET Workstation ID: [id number] Transcribed By: Self Edit Transcribed Date: 11/14/2024 [...] Signed Date: 11/14/2024 11:08 ET Workstation ID: [id number] Transcribed By: Self Edit Transcribed Date: 11/14/2024 [...] in the right sphenoid sinus. Small amount ofbubbly debris in one of the posterior right ethmoid air cells. Calvarium: Mild hyperostosis frontalis interna. Other: Partially calcified oval 13 mm scalp mass at the right parietal vertex, likely anepidermal inclusion cyst. Degenerative changes of the temporomandibular joints, right greater than left. 8 mm subdural hematoma along the right convexity. -------- FINAL REPORT -------- Dictated By: Vinayak Austin Dictated Date: 11/14/2024 10:30 ET Assigned Physician: Vinayak Austin Reviewed and Electronically Signed By: Vinayak Austin Signed Date: 11/14/2024 10:36 ET Workstation ID: [id number] Transcribed By: Self Edit Transcribed Date: 11/14/2024 10:30 ET Lab Results Component Value Date INR 1.0 11/14/2024 Lab Results Component Value Date NA 138 11/26/2024 K 4.5 11/26/2024 CL 105 11/26/2024 CO2 29 11/26/2024 GLUCOSE 86 11/26/2024 BUN 15 11/26/2024 CREATININE 0.72 11/26/2024 CALCIUM 8.7 11/26/2024 PROT 6.8 11/14/2024 ALBUMIN 3.9 11/14/2024 BILITOT 1.0 11/14/2024 AST 52 (H) 11/14/2024 ALT 40 11/14/2024 MG 2.0 11/15/2024 ALKPHOS 81 11/14/2024 CKTOTAL 668 (H) 11/14/2024 EGFR 86 11/26/2024 Lab Results Component Value Date WBC 8.6 11/26/2024 HGB 7.8 (L) 11/26/2024 HCT 25.0 (L) 11/26/2024 MCV 98.8 (H) 11/26/2024 PLT 478 (H) 11/26/2024 Discharge Medications Your medication list START taking these medications Instructions Last Dose Given Next Dose Due acetaminophen 500 mg tablet Commonly known as: TYLENOL Take 2 tablets (1,000 mg total) by mouth every 8 (eight) hours for 10 days. amLODIPine 2.5 mg tablet Commonly known as: NORVASC Take 1 tablet (2.5 mg total) by mouth 1 (one) time each day. heparin (UFH) 5,000 unit/mL injection Inject 1 mL (5,000 Units total) under the skin every 12 (twelve) hours. melatonin 3 mg tablet Take 1 tablet (3 mg total) by mouth at bedtime. senna-docusate 8.6-50 mg per tablet Commonly known [...] % topical gel Commonly known as: VOLTAREN ASK your doctor about these medications Instructions Last Dose Given Next Dose Due oxyCODONE 5 mg immediate release tablet Commonly known as: ROXICODONE Ask about: Should I take this medication? Take 1 tablet (5 mg total) by mouth every 4 (four) hours if needed (moderate pain or when therapiesfor mild pain were not effective) for up to 1 day. Max Daily Amount: 30 mg Where to Get Your Medications You can get these medications from any pharmacy Bring a paper prescription for each of these medications oxyCODONE 5 mg immediate release tablet Information about where to get these medications is not yet available Ask your nurse or doctor about these medications acetaminophen 500 mg tablet amLODIPine 2.5 mg tablet heparin (UFH) 5,000 unit/mL injection levothyroxine 75 mcg tablet melatonin 3 mg tablet senna-docusate 8.6-50 mg per tablet Follow-Up Instructions and Recommendations [address] [address] No discharge procedures on file. There are no outpatient Patient Instructions on file for this admission. Outpatient Follow-Up Future Appointments Date Time Provider Department Center 12/05/2024 10:[address] [facility] 12/05/2024 11:15 AM FRANCES Bee [facility] NEURS None 03/06/2025 11:30 AM Garcia Doran MD [facility] 305 Bic Test Results Pending at Discharge: None Physical Exam at time of Discharge Vitals Visit Vitals BP 128/65 Pulse 76 Temp 36.7 ??C (98.1 ??F) (Oral) Resp 18 No data recorded. Body mass index is 24.13 kg/m??. No [...] reconciliation and discharge summary. Trace Burris MD 11/27/2024 2:14 PM EST documented in this encounter Discharge Instructions * Discharge Instructions* FRANCES Hardwick - 11/14/2024 12:32 PM EST ORTHOPEDIC DISCHARGE INSTRUCTIONS Diagnosis: Left hip fracture Surgery: Left hip hemiarthroplasty on 11-15-[address] Hester - Follow up with [facility] in 2 weeks. If you [...] your follow up appointment. - Please call [facility] with any questions or concerns. [facility] [address] [place] [address] documented in this encounter Medications at Time of Discharge Medication Sig Dispensed Refills Start Date End Date acetaminophen (TYLENOL) 500 mg tablet Take 2 tablets (1,000 mg total) by mouth every 8 (eight) hours for 10 days. 11/24/2024 12/04/2024 amLODIPine (NORVASC) 2.5 mg tablet TAKE 1 TABLET BY MOUTH DAILY 100 tablet 1 11/26/2024 citalopram (CeleXA) 20 mg tablet Please take [...] tablets by mouth at bedtime. 11/24/2024 12/24/2024 documented as of this encounter Ordered Prescriptions [...] onward) Start Ordered 11/17/24 1503 Adult diet [facility]; Modified Consistency Options for Liquidsand Solids, General; Regular; IDDSI Level 7 Easy to Chew (Order Panel) Diet effective now Question Answer Comment Location [facility] Diet Type (req) Modified Consistency Options [...] seen for follow up- noted after visit, caseworker intake note stating that pt discharging to long-term facility at 6 pm today. Pt reports good intake/appetite. States she is having at least half of meals. concrete hopper operator indicates pt consume 100% of meals on [...] available and will continue to follow. Signature: Kritsie Forrester RD * Nica Ruelas RN - 11/26/2024 4:29 PM EST 11/26/24 1627 Initial Transition Plan Initial Transition Plan Jail Facility Transportation Transportation at discharge [facility] providing transportation Amanuel What day is the transport expected? 11/26/24 What time is the transport expected? 1800 Final Discharge Disposition Jail Facility ([facility]) [facility] spoke to Fredy and daughter Yovana and updated them on transfer * Bridgette Zelaya - 11/26/2024 1:10 PM EST [facility] Physical Therapy Treatment PT Discharge Recommendations: Inpatient rehab facility placement, correction facility placement Equipment Recommended: walker Staff Recommendations [...] is a 79 y.o. female admitted to [facility] on 11/14/2024 with: Patient Active [...] day PT Discharge Recommendations Inpatient rehab facility placement;correction facility placement Equipment Recommended walker Barriers to [...] PT Discharge Recommendations: Inpatient rehab facility placement, correction facility placement Equipment Recommended: walker Barriers to [...] a 79 y.o. female : 1945 MR#: [id number] ASSESSMENT & PLAN Assessment/Plan Principal Problem: Acute [...] Signed Date: 11/21/2024 08:46 ET Workstation ID: [id number] Transcribed By: Self Edit Transcribed Date: 11/21/2024 08:43 ET DAILY CARE CHECKLIST Length of Stay: 05d 17h 54m VTE Prophylaxis: Heparin Resuscitation: Full Code - Default IV Access: Peripheral Tubes, Catheters, Devices: None PCP: Garcia Doran MD Disposition: Pending placement Trace Burris MD 11/26/24 12:54 PM EST * Joseph Arita RN - 11/25/2024 5:43 PM EST Problem: Cognitive: Kelsea Alexander Fall Risk Goal: Last Known Fall [...] from the original note were not included. [place] PROGRESS NOTE Date: 11/25/2024 Author: Trace Burris MD Patient ID: Isabela Rios is a 79 y.o. female : 1945 MR#: [id number] ASSESSMENT & PLAN Assessment/Plan Principal Problem: Acute [...] Signed Date: 11/21/2024 08:46 ET Workstation ID: [id number] Transcribed By: Self Edit Transcribed Date: 11/21/2024 [...] Ruelas RN - 11/24/2024 4:02 PM EST [facility] received a message from [facility] is offering peer to peer prior to determination. Deadline is 10:30 am 11/25/24. Please have provider call [phone] option 5. thanks Message forwarded to [facility] real estate firm managerMD and Foundation Engineer. Cameron Yen updated * Yolanda Carson RN [...] Bridgette Zelaya - 11/24/2024 11:31 AM EST [facility] Physical Therapy Treatment PT Discharge Recommendations: Inpatient rehab facility placement, correction facility placement Equipment Recommended: walker Staff Recommendations [...] is a 79 y.o. female admitted to [facility] on 11/14/2024 with: Patient Active Problem List Diagnosis Anxiety Depression HTN (hypertension) Hyperlipidemia Hypothyroidism Osteopenia Osteoporosis Hip fracture requiring operative repair, left, closed, initial encounter ([facility] Acute subdural hematoma ([facility]) Fall prevention education provided including use of [...] day PT Discharge Recommendations Inpatient rehab facility placement;correction facility placement Equipment Recommended walker Barriers to [...] PT Discharge Recommendations: Inpatient rehab facility placement, correction facility placement Equipment Recommended: walker Barriers to [...] a 79 y.o. female : 1945 MR#: [id number] SUBJECTIVE CC: Here after fall resulting in [...] Signed Date: 11/21/2024 08:46 ET Workstation ID: [id number] Transcribed By: Self Edit Transcribed Date: 11/21/2024 [...] Rachel Bernard and Tucker. Rachel Bernard at [phone] - I met her at the bedside [...] a 79 y.o. female : 1945 MR#: [id number] SUBJECTIVE CC: Here after fall resulting in [...] Signed Date: 11/21/2024 08:46 ET Workstation ID: [id number] Transcribed By: Self Edit Transcribed Date: 11/21/2024 [...] not demonstrate evidence of PE. Small bilateral pleural effusions noted. She underwent left hip hemiarthroplasty on [...] and Tucker. I called Rachel Bernard at [phone] and left the message. * Kayla Roque RN - 11/22/2024 10:26 AM EST Problem: Safety: Restraint-Nonviolent; Risk of [...] Patient Specific Outcome Outcome: Progressing Problem: Cognitive: Kelsea Munoz Fall Risk Goal: [...] barriers to meeting goals/advancing plan of care: pain/placement Stability of the patient: Moderately Stable - Low risk of patient condition declining or worsening End of Shift Summary: vss, pt in moderate pain. Given pain medication with good relief. Resting comfortably * Evangelina Flowers, PT - 11/22/2024 10:13 AM EST [facility] Physical Therapy Treatment PT Discharge Recommendations: correction facility placement, Inpatient rehab facility placement Equipment [...] is a 79 y.o. female admitted to [facility] on 11/14/2024 with: Patient Active Problem List Diagnosis Anxiety Depression HTN (hypertension) Hyperlipidemia Hypothyroidism Osteopenia Osteoporosis Hip fracture requiring operative repair, left, closed, initial encounter ([facility]) Acute subdural hematoma ([facility]) Fall prevention education provided including use of [...] 1 time per day PT Discharge Recommendations correction facility placement;Inpatient rehab facility placement PT - [...] treatment well Comments: pt was I at [facility]; feel she is a good candidate for acute rehab Medical Staff Made Aware: Yes Plan Treatment/Interventions: LE strengthening/ROM, Endurance training, Gait training PT Plan: Skilled PT PT Frequency: 2-5 days per week PT Duration of Sessions: 15-30 min per session PT Treatments per day: 1 time per day PT Discharge Recommendations: correction facility placement, Inpatient rehab facility placement Equipment [...] Martins OT - 11/22/2024 9:00 AM EST [facility] Occupational Therapy Treatment Note DATE: Friday November 22, 2024 TIME IN: 0900 TIME OUT: 0945 Pt: Isabela Rios 529/529-2 DISCHARGE RECS: correction facility placement, Inpatient rehab facility placement EQUIPMENT RECS: Walker-rolling (butadiene converter operator, sock aid) SAFE PT HANDLING REC FOR [...] - Evaluation Status Complete OT Discharge Recommendations correction facility placement;Inpatient rehab facility placement Equipment Recommended Walker-rolling (butadiene converter operator, sock aid) ADDITIONAL COMMENTS: Chart reviewed. RN [...] (Resolved) There are no resolved problems. Kathleen Martisn OT * Aditi Christina RN - 11/22/2024 [...] with call light within reach. * Shana Gomez RD - 11/21/2024 4:42 PM EST 11/21/2024 @ [...] onward) Start Ordered 11/17/24 1503 Adult diet [facility]; Modified Consistency Options for Liquidsand Solids, General; Regular; IDDSI Level 7 Easy to Chew (Order Panel) Diet effective now Question Answer Comment Location [facility] Diet Type (req) Modified Consistency Options [...] (increased her walking, cut back ). Appetite PET HANDLER: Good Intake PET HANDLER: Stable Vitamins/Minerals/Herbs: one a day type multivitamin [...] a 79 y.o. female : 1945 MR#: [id number] SUBJECTIVE CC: Here after fall resulting in [...] Current Medications: acetaminophen, 1,000 mg, oral, q8h SDAIE amLODIPine, 2.5 mg, oral, Daily citalopram, 30 [...] Signed Date: 11/21/2024 08:46 ET Workstation ID: [id number] Transcribed By: Self Edit Transcribed Date: 11/21/2024 [...] -daughter Rachel Bernard and Tucker. * Bridgette Martinezjettroxy - 11/21/2024 10:54 AM EST [facility] Physical Therapy Treatment PT Discharge Recommendations: Inpatient rehab facility placement, correction facility placement Equipment Recommended: walker Staff Recommendations [...] is a 79 y.o. female admitted to [facility] on 11/14/2024 with: Patient Active Problem List Diagnosis Anxiety Depression HTN (hypertension) Hyperlipidemia Hypothyroidism Osteopenia Osteoporosis Hip fracture requiring operative repair, left, closed, initial encounter ([facility]) Acute subdural hematoma ([facility]) Fall prevention education provided including use of [...] day PT Discharge Recommendations Inpatient rehab facility placement;correction facility placement Equipment Recommended walker Barriers to [...] treatment well Comments: pt was I at [facility]; feel she is a good candidate for acute rehab Medical Staff Made Aware: Yes Plan Treatment/Interventions: LE strengthening/ROM, Endurance training, Gait training PT Plan: Skilled PT PT Frequency: 7 days per week PT Duration of Sessions: 15-30 min per session PT Treatments per day: 1 time per day PT Discharge Recommendations: Inpatient rehab facility placement, correction facility placement Equipment Recommended: walker Barriers to [...] over left periorbital region Oriented to person, [facility], Oct 2024. Respirations unlabored and heart [...] Martins, OT - 11/21/2024 9:30 AM EST [facility] Occupational Therapy Treatment Note DATE: Thursday November 21, 2024 TIME IN: 929 TIME OUT: 1010 Pt: Isabela Rios 529/529-2 DISCHARGE RECS: correction facility placement, Inpatient rehab facility placement EQUIPMENT RECS: Walker-rolling (butadiene converter operator) SAFE PT HANDLING REC FOR STAFF: 1 [...] - Evaluation Status Complete OT Discharge Recommendations correction facility placement;Inpatient rehab facility placement Equipment Recommended Walker-rolling (butadiene converter operator) ADDITIONAL COMMENTS: Chart reviewed. RN clears pt [...] Orthopedic team. No acute findings. Tissue exam: [id number] Order: [id number] Collected 11/17/2024 13:17 Status: Final result Visible [...] with some hemorrhage around the margin. A customer service representative teacher section is submitted in one cassette following decalcification, one piece [facility]CO Disclaimer Unless otherwise specified, all tissue is 10% NB formalin fixed and paraffin embedded. Resulting Agency [facility] Collection Information Specimen ID: 1 Bone Bone Collected: 11/17/2024 1317 EST ELVA HESTER Received: 11/17/2024 1555 EST Resulting Agency: [facility] ([facility]) HOSPITAL LAB [address] [facility] [id number] * Magnolia Lincoln, OT - 11/20/2024 3:42 PM EST 11/20/24 [...] chair with back Prior Function Level of Talmage Independent with mobility and functional transfers Indoor [...] Entry OT Evaluation (Low) Time Entry 35 [facility] Occupational Therapy Evaluation DATE: October TIME IN: 1245 TIME OUT: 1320 Pt: Isabela Rios ROOM: -1 Discharge Recommendation: inpatient rehab Equipment Recommendation: other [...] is a 79 y.o. female admitted to [facility] on 11/14/2024. Occupational Therapy evaluation and treatment ordered to assess ADL independence, safety, and functional mobility for discharge planning. Patient Active Problem List Diagnosis Anxiety Depression HTN (hypertension) Hyperlipidemia Hypothyroidism Osteopenia Osteoporosis Hip fracture requiring operative repair, left, closed, initial encounter ([facility]) Acute subdural hematoma ([facility]) Past Medical History: Diagnosis Date Anxiety 06/11/2017 [...] chair with back Prior Function Level of [place] Independent with mobility and functional transfers Indoor [...] a 79 y.o. female : 1945 MR#: [id number] SUBJECTIVE CC: Here after fall resulting in [...] Signed Date: 11/18/2024 14:33 ET Workstation ID: [id number] Transcribed By: Self Edit Transcribed Date: 11/18/2024 [...] Signed Date: 11/18/2024 06:58 ET Workstation ID: [id number] Transcribed By: Self Edit Transcribed Date: 11/18/2024 [...] Bridgette Zelaya - 11/20/2024 1:27 PM EST [facility] Physical Therapy Treatment PT Discharge [...] is a 79 y.o. female admitted to [facility] on 11/14/2024 with: Patient Active Problem List Diagnosis Anxiety Depression HTN (hypertension) Hyperlipidemia Hypothyroidism Osteopenia Osteoporosis Hip fracture requiring operative repair, left, closed, initial encounter ([facility]) Acute subdural hematoma ([facility]) Fall prevention education provided including use of [...] treatment well Comments: pt was I at [facility]; feel she is a good candidate for [...] End: 11/21/24 Outcomes Date/Time User Outcome 11/20/24 132 Bridgette [...] y.o. Sex: female Acute subdural hematoma (CMS/HCC) [facility] Physical Therapy Treatment Ambulation: Walking Assistance: Moderate assistance Walking Deficit: Steadying, Verbal cueing, Supervision/safety awareness, Increased time to complete, Assist for foot placement, Assist for trunk control, Assist for weight shifting, Limited endurance, Impaired balance, LE weakness Device: Rolling walker Distance Ambulated (ft): (P) 2 PLOF: Level of Talmage: Independent with mobility and functional transfers Lives [...] treatment well Comments pt was I at [facility]; feel she is a good candidate for acute rehab Medical Staff Made Aware Yes Plan PT Discharge Recommendations Inpatient rehab facility placement;correction facility placement PLAN Acute Care Plan: PT Plan: Skilled PT PT Frequency: Other (Comment) (BID) PT Discharge Recommendations: (P) Inpatient rehab facility placement, correction facility placement Equipment Recommended: monae Time Spent: PT Time Calculation PT Start [...] a 79 y.o. female : 1945 MR#: [id number] SUBJECTIVE CC: Here after fall resulting in [...] document has been electronically signed by: Estelle Jaen MD on 11/18/2024 19:57:56 Transthoracic echocardiogram (TTE) [...] Signed Date: 11/18/2024 14:33 ET Workstation ID: [id number] Transcribed By: Self Edit Transcribed Date: 11/18/2024 [...] Signed Date: 11/18/2024 06:58 ET Workstation ID: [id number] Transcribed By: Self Edit Transcribed Date: 11/18/2024 [...] management and this was conveyed to our caseworker intake. * FRANCES Herrera - 11/19/2024 10:04 AM [...] Signed Date: 11/18/2024 14:33 ET Workstation ID: [id number] Transcribed By: Self Edit Transcribed Date: 11/18/2024 [...] Signed Date: 11/18/2024 06:58 ET Workstation ID: [id number] Transcribed By: Self Edit Transcribed Date: 11/18/2024 [...] Patient is alert and oriented to person, [facility] , and year. Cranial Nerves: No cranial [...] Orthopedics and Dr. Yeboah from Neurosurgery at [place]. Patient is neurologically stable. Will continue to [...] oral regimen. She [place] [facility] [place]. Discussed in length [...] heparin. This will be communicated to both [place] and neurosurgery teams. I anticipate we will [...] Signed Date: 11/18/2024 14:33 ET Workstation ID: [id number] Transcribed By: Self Edit Transcribed Date: 11/18/2024 [...] y.o. Sex: female Acute subdural hematoma (CMS/HCC) [facility] Physical Therapy Evaluation PLOF: Level of Talmage: Independent with mobility and functional transfers Lives With: Spouse Type of Home: House Home Access: Stairs to enter with rails DME Needs: rwanayer PT Discharge Recommendation: correction facility placement Reason for current recommendation based [...] of Steps 2 Prior Function Level of [place] Independent with mobility and functional transfers Indoor [...] Frequency Other (Comment) (BID) PT Discharge Recommendations correction facility placement Equipment Recommended rwalknorbert PT - Evaluation Status Complete PT Evaluation Time Entry PT Evaluation (Moderate) Time Entry 53 PLAN Acute Care Plan: PT Plan: Skilled PT PT Frequency: Other (Comment) (BID) PT Discharge Recommendations: correction facility placement Equipment Recommended: pricilaer Encounter Problems Encounter Problems (Active) Template: Physical [...] possible * Kathleen Martins, OT - 11/18/2024 2:00 PM EST Therapy [...] a 79 y.o. female : 1945 MR#: [id number] SUBJECTIVE CC: Here after fall resulting in [...] Signed Date: 11/18/2024 06:58 ET Workstation ID: [id number] Transcribed By: Self Edit Transcribed Date: 11/18/2024 [...] oral regimen. [place] [facility] [place]. Seen by Neurosurgery [...] a 79 y.o. female : 1945 MR#: [id number] SUBJECTIVE CC: Here after fall resulting in [...] at home and confirmed this, it is gwex-hdc-gpknoal medication. Some abdominal discomfort was reported, mid [...] obtained following IV 90 mL Isovue-370. Scanner: ZapMe 64 slice VCT Dose reduction technique: ASIR [...] Signed Date: 11/16/2024 10:45 ET Workstation ID: [id number] Transcribed By: Self Edit Transcribed Date: 11/16/2024 [...] Signed Date: 11/16/2024 07:11 ET Workstation ID: [id number] Transcribed By: Self Edit Transcribed Date: 11/16/2024 [...] Ordered 11/17/24 0001 Adult NPO diet Location: [facility]; Diet: NPO- Except for Medications Diet effective midnight Question Answer Comment Location [facility] Diet NPO- Except for Medications 11/16/24 [...] (increased her walking, cut back ). Appetite PET HANDLER: Good Intake PET HANDLER: Stable Vitamins/Minerals/Herbs: one a day type multivitamin [...] Ruelas RN - 11/17/2024 10:45 AM EST Progress Note VAL: 11/19-11/20 Barriers: OR 11/17, [...] a 79 y.o. female : 1945 MR#: [id number] SUBJECTIVE Follow up: SDH, L hip fx, [...] Awake, alert, some word finding difficulties. Place: [facility] Knows year. November Neurological: No localizing weakness. Range of [...] obtained following IV 90 mL Isovue-370. Scanner: ZapMe 64 slice VCT Dose reduction technique: ASIR [...] Signed Date: 11/16/2024 10:45 ET Workstation ID: [id number] Transcribed By: Self Edit Transcribed Date: 11/16/2024 [...] Signed Date: 11/16/2024 07:11 ET Workstation ID: [id number] Transcribed By: Self Edit Transcribed Date: 11/16/2024 [...] repair tomorrow S/p Fall Reported hx falls PET HANDLER. Etiology? Acute encephalopathy Dysarthria Cognitive decline Suspect [...] 10:45 AM EST Patient returned from CT, topographical field assistant placed. * Ruth Ibrahim RN - 11/16/2024 7:30 AM EST Attempt to place patient on topographical field assistant, pt continuing to remove. * Petar Catherine [...] 4:23 AM EST Patient continuing to remove topographical field assistant every time it is replaced. * Petar [...] let patient get rest and defer putting topographical field assistant back on until 4am when vitals are [...] Relationship) for DC Planning Tucker Rios spouse [phone] Living Arrangements Spouse/significant other Type of Residence Private residence Support Systems Children Medication Coverage Has Med Coverage Under Insurance Plan Yes Anticipated Discharge Needs DME Needs Front wheeled walker Discipline following for SNF placement [employer] Informed Choice Informed Choice Given? Yes Initial Assessment Notices: Patient choice given. VAL: Unable to determine Barriers to progression of care/discharge: Sitter; left hip surgery 11/16/2023; s/p fall with subdural hematoma; pain management; PT evaluation Plan Dispo: [facility] [place]/[address] [place] [address] Referral/Auth status: Placed 11/16 pending Support Persons and Availability: Lives with spouse; supportive daughter lives in [place] Transportation: Ambulance vs stretcher Current/Prior Services/DME: Used no DME Home/Living situation: One level with two steps to entry / status: No If DC to home, readily able to access: Yes Readmission: No Therapy Eval: Pending Covid Vacc: Yes Last BM: ? HCP: No...confused 11/16/2023 Pharmacy: [place], [place] * FRANCES Herrera - 11/15/2024 1:27 [...] and coronal images of brainwere obtained. Scanner: ZapMe 64 slice VCT Dose reduction technique: ASIR [...] De Anda Reviewed and Electronically Signed By: Neetu Alli Signed Date: 11/15/2024 08:30 ET Workstation ID: [id number] Transcribed By: Self Edit Transcribed Date: 11/15/2024 08:25 ET Physical Exam On physical examination, the week patient is awake and alert. PERRL. Speech was clear and fluent. She was oriented to person and to the hospital but could not remember the name of the hospital or theyear. Thought pattern was tangential. HIGUERA. No pronator drift. Output by Drain (mL) 11/13/24 07 - 11/13/24 18511/13/24 1900 - 11/14/24 0659 11/14/24 07 - 11/14/24 1859 11/14/241899 - 11/15/24 0659 11/15/24 07 - 11/15/24 1327 Requested LDAs do not [...] a 79 y.o. female : 1945 MR#: [id number] SUBJECTIVE Follow up: SDH, L hip fx, [...] and coronal images of brainwere obtained. Scanner: DataRPMpeSwapDrive 64 slice VCT Dose reduction technique: ASIR [...] Signed Date: 11/15/2024 08:30 ET Workstation ID: [id number] Transcribed By: Self Edit Transcribed Date: 11/15/2024 [...] note were not included. Speech Language Pathology [facility] PRINCIPAL CLERK TYPIST BEDSIDE SWALLOW EVALUATION NAME: Isabela Rios DATE OF : 1945 ROOM: [address] [place] [address] PRINCIPAL CLERK TYPIST Received On: 11/15/24 Television Script Writer Required: No TIME IN: 1115 TIME OUT: [...] Closed fracture of left hip, initial encounter ([facility] [S72.002A] No admission procedures for hospital encounter. [...] and coronal images of brainwere obtained. Scanner: GE LightSpeed 64 slice VCT Dose reduction technique: ASIR [...] Signed Date: 11/15/2024 08:30 ET Workstation ID: [id number] Transcribed By: Self Edit Transcribed Date: 11/15/2024 [...] Signed Date: 11/14/2024 11:08 ET Workstation ID: [id number] Transcribed By: Self Edit Transcribed Date: 11/14/2024 [...] Medication Administration: One pill at a time PRINCIPAL CLERK TYPIST ASSESSMENT: PRINCIPAL CLERK TYPIST Assessment Results: At baseline, Within functional limits Dysphagia Diagnosis: Within Functional Limits Evaluation/Treatment Tolerance: Patient tolerated treatment well Medical Staff Made Aware: Yes Comments: Disucessed w/ RN and message sent to CURRENT DIET: Dietary Orders (From admission, onward) Start Ordered 11/16/24 0001 Adult NPO diet Location: [facility]; Diet: NPO- Except for Medications Diet effective now Question Answer Comment Location [facility] Diet NPO- Except for Medications 11/14/24 1442 11/16/24 0001 Adult NPO diet Location: [facility]; Diet: NPO- Except for Medications Diet effective midnight Question Answer Comment Location [facility] Diet NPO- Except for Medications 11/15/24 1036 11/15/24 1236 Adult diet [facility]; General, Modified Consistency Options for Liquids and Solids; Regular; IDDSI Level 7 Easy to Chew Diet effective now Question Answer Comment Location [facility] Diet Type (req) General Diet Type (req) Modified Consistency Options for Liquids and Solids General Diet Regular Modified Consistency Options for Liquids and Solids IDDSI Level 7 Easy to Chew 11/15/24 1235 PLAN OF CARE PRINCIPAL CLERK TYPIST PLAN PRINCIPAL CLERK TYPIST Plan: No skilled PRINCIPAL CLERK TYPIST No Skilled PRINCIPAL CLERK TYPIST: Independent with swallowing PRINCIPAL CLERK TYPIST - Evaluation Status: Complete PRINCIPAL CLERK TYPIST Discharge Recommendations: Home independent Diet Recommendations: IDDSI 7/0, regular and thin liquids DISCHARGE RECOMMENDATIONS No Speech-Language Pathology (PRINCIPAL CLERK TYPIST) services/needs at next level of care. EDUCATION [...] EST I attest that I, Kathleen Delacruz M.S.,[facility]-PRINCIPAL CLERK TYPIST, was physically involved in the ongoing assessment, [...] left side of the forehead surrounded by ecchymosis. No active bleeding. Neuro: Alert and oriented, no [...] Procedure Abnormality Status --------- ------ CBC auto differential[[id number]] Abnormal Final result Please view results for these tests on the individual orders. URINALYSIS WITH REFLEX MICROSCOPIC AND CULTURE Narrative: The following orders were created for panel order Urinalysis with reflex microscopic and culture. Procedure Abnormality Status --------- ------ Urinalysis with reflex ...[[id number]] Estrada urine culture tube[[id number]] Please view results for these tests on [...] Signed Date: 11/14/2024 11:08 ET Workstation ID: [id number] Transcribed By: Self Edit Transcribed Date: 11/14/2024 11:05 ET XR Chest 1 View Final Result No acute findings. -------- FINAL REPORT -------- Dictated By: Vinayak Austin Dictated Date: 11/14/2024 11:08 ET Assigned Physician: Vinayak Austin Reviewed and Electronically Signed By: Vinayak uAstin Signed Date: 11/14/2024 11:08 ET Workstation ID: [id number] Transcribed By: Self Edit Transcribed Date: 11/14/2024 11:[address] Head wo Contrast Final Result 8 mm subdural hematoma along the right convexity. -------- FINAL REPORT -------- Dictated By: Vinayak Austin Dictated Date: 11/14/2024 10:30 ET Assigned Physician: Vinayak Austin Reviewed and Electronically Signed By: Vinayak Austin Signed Date: 11/14/2024 10:36 ET Workstation ID: [id number] Transcribed By: Self Edit Transcribed Date: 11/14/2024 [...] hip with 3D reconstruction. This was ordered. [JH] ED Course User Index [JH] FRANCES George Clinical Impressions as of 11/14/24 1205 Subdural hematoma (CMS/HCC) Closed fracture of left hip, initial encounter (CMS/HCC) Differential to include ICH, concussion, contusion, left [...] fracture of left hip, initial encounter (CMS/HCC) Disposition Admit to Inpatient ED Prescriptions None [...] Please contact author [Demarcus Villalobos MD] via [employer]. Patient: Isabela Rios Admission Date/Time: 11/14/2024 9:22 AM : 1945 [79 y.o.] Patient's PCP: Garcia Doran MD Attending Provider: Román Guzman MD;Ca* CHIEF COMPLAINT Found on the floor HISTORY OF PRESENT ILLNESS This is s 79-year-old former smoker woman with past medical history significant for hypertension, dyslipidemia, hypothyroidism, osteopenia, depression and anxiety was brought to [facility] ED after her found her around 3 [...] Signed Date: 11/14/2024 14:51 ET Workstation ID: [id number] Transcribed By: Self Edit Transcribed Date: 11/14/2024 14:[address] Lower Extremity wo Contrast Left Final Result Impacted and angulated left femoral neck fracture -------- FINAL REPORT -------- Dictated By: KYLER BARRERA Dictated Date: 11/14/2024 12:26 ET Assigned Physician: KYLER BARRERA Reviewed and Electronically Signed By: KYLER BARRERA Signed Date: 11/14/2024 12:30 ET Workstation ID: [id number] Transcribed By: Self Edit Transcribed Date: 11/14/2024 12:26 ET XR Hip 2-3 Views Left Final Result Acute transcervical femoral neck fracture. -------- FINAL REPORT -------- Dictated By: Vinayak Austin Dictated Date: 11/14/2024 11:05 ET Assigned Physician: Vinayak Austin Reviewed and Electronically Signed By: Vinayak Austin Signed Date: 11/14/2024 11:08 ET Workstation ID: [id number] Transcribed By: Self Edit Transcribed Date: 11/14/2024 11:05 ET XR Chest 1 View Final Result No acute findings. -------- FINAL REPORT -------- Dictated By: Vinayak Austin Dictated Date: 11/14/2024 11:08 ET Assigned Physician: Vinayak Austin Reviewed and Electronically Signed By: Vinayak Austin Signed Date: 11/14/2024 11:08 ET Workstation ID: [id number] Transcribed By: Self Edit Transcribed Date: 11/14/2024 11:[address] Head wo Contrast Final Result 8 mm subdural hematoma along the right convexity. -------- FINAL REPORT -------- Dictated By: Vinayak Austin Dictated Date: 11/14/2024 10:30 ET Assigned Physician: Vinayak Austin Reviewed and Electronically Signed By: Vinayak Austin Signed Date: 11/14/2024 10:36 ET Workstation ID: [id number] Transcribed By: Self Edit Transcribed Date: 11/14/2024 [...] sedatives at this point Will get constant air table operator May use soft restraints, too 5. Dysarthria [...] reconciliation Health Care proxy: Tucker Rios (): [phone] documented in this encounter Procedure Notes * [...] (posterior approach, cemented) Surgeon: SAIMA Hester MD assistant professor of dietetics: Juan Luis Larsen MD Anesthesia: GETA Anesthesiologist: [...] used to optimize exposure of the femur Cookie cutter/box punch used to initiate preparation of the canal followed by the canal finder Greater trochanter lateralizer/reamer was utilized to optimize the position and minimize likelihoodof varus alignment [place] canal was broached with sequential sizes Size [...] awake and alert. She was oriented to person, [facility], and the year 2024. She could [...] This Visit None Visit Diagnoses Subdural hematoma ([facility]) - Primary Closed fracture of left hip, initial encounter ([facility]) Thank you for allowing us to care for your patient. FRANCES Herrera on 11/14/2024 at 7:17 PM EST CC: No ref. provider found Garcia Doran MD [facility] Neurosurgical [place] * FRANCES Arnold - 11/14/2024 2:50 PM [...] scan of the left hip revealed an impactedand angulated transcervical neck fracture. CT of the [...] Signed Date: 11/14/2024 12:30 ET Workstation ID: [id number] Transcribed By: Self Edit Transcribed Date: 11/14/2024 [...] Signed Date: 11/14/2024 11:08 ET Workstation ID: [id number] Transcribed By: Self Edit Transcribed Date: 11/14/2024 [...] Signed Date: 11/14/2024 11:08 ET Workstation ID: [id number] Transcribed By: Self Edit Transcribed Date: 11/14/2024 [...] Signed Date: 11/14/2024 10:36 ET Workstation ID: [id number] Transcribed By: Self Edit Transcribed Date: 11/14/2024 [...] 80 Q-T Interval 430 QTc 495 R Boliv[place] 31 T Bolivar -53 ECG Interpretation Normal sinus rhythm Nonspecific [...] Info) Description 12/05/2024 10:45 AM EST Appointment [facility] CT Scan [address] [place] [phone] 12/05/2024 11:15 AM EST Office Visit Neurosurgery [place] [facility] [address] [facility] [address] [place] [phone] Ashley Davis PA [address] [facility] [address], [address] [place] [phone] 03/06/2025 11:30 AM EDT Office Visit [facility] [address] [place] [phone] Garcia Doran MD [address] [place] [address] documented as of this encounter Procedures Procedure [...] requiring operative repair, left, closed, initial encounter ([facility]) SD HEMIARTHROPLASTY HIP PARTIAL 11/17/2024 12:14 PM EST Hip fracture requiring operative repair, left, closed, initial encounter ([facility]) Case Notes c arm, implants, lateral position [...] ECG 12-LEAD Routine 11/14/2024 9:41 AM EST SD CRITICAL CARE EACH ADDITIONAL 30 MINUTES Routine 11/14/2024 9:21 AM EST SD CRITICAL CARE EACH ADDITIONAL 30 MINUTES Routine 11/14/2024 9:21 AM EST SD CRITICAL CARE EACH ADDITIONAL 30 MINUTES Routine 11/14/2024 9:21 AM EST ECG ANNOTATED 11/14/2024 documented in this encounter Results * (ABNORMAL) Complete blood count (11/26/2024 5:49 AM EST) [facility] WBC 8.6 4.8 - 10.8 K/mcL LAB HEMETOLOGY METHOD 11/26/2024 6:52 AM [facility] RBC 2.50(L) 3.80 - 4.80 M/mcL LAB HEMETOLOGY METHOD 11/26/2024 6:52 AM [facility] Hemoglobin 7.8(L) 11.5 - 16.0 g/dL LAB HEMETOLOGY METHOD 11/26/2024 6:52 AM [facility] Hematocrit 25.0(L) 35.0 - 47.0 % LAB HEMETOLOGY METHOD 11/26/2024 6:52 AM [facility] MCV 98.8(H) 79.0 - 98.0 FL LAB HEMETOLOGY METHOD 11/26/2024 6:52 AM [facility] MCH 30.8 27.0 - [...] [facility] Platelets 478(H) 130 - [...] K/mcL LAB HEMETOLOGY METHOD 11/26/2024 6:52 AM [facility] Blood Venous blood specimen / Unknown Venipuncture / Unknown 11/26/2024 5:49 AM EST 11/26/2024 6:33 AM EST Jaz DANIELS LAB BLOOD ORDERABLES [facility] [address] [place] [address], * Basic metabolic panel (11/26/2024 5:49 AM EST) Sodium 138 133 - 145 mmol/L LAB CHEMISTRY METHOD 11/26/2024 7:10 AM EST [facility] Potassium 4.5 3.5 - 5.5 mmol/L LAB CHEMISTRY METHOD 11/26/2024 7:10 AM EST [facility] Chloride 105 96 - 110 mmol/L LAB CHEMISTRY METHOD 11/26/2024 7:10 AM [facility] CO2 29 21 - 32 mmol/L LAB CHEMISTRY METHOD 11/26/2024 7:10 AM [facility] Anion Gap 4 3 - 11 LAB CHEMISTRY METHOD 11/26/2024 7:10 AM [facility] Glucose 86 70 - 100 mg/dL LAB CHEMISTRY METHOD 11/26/2024 7:10 AM [facility] BUN 15 5 - 25 mg/dL LAB CHEMISTRY METHOD 11/26/2024 7:10 AM [facility] Creatinine 0.72 0.50 - 1.10 mg/dL LAB CHEMISTRY METHOD 11/26/2024 7:10 AM [facility] eGFR 86 >=60 mL/min/1. 73m2 LAB CHEMISTRY METHOD 11/26/2024 7:10 AM [facility] Comment:Calculation based on the??Chronic Kidney Disease Epidemiology Collaboration (CKD-EPI) equation refit??without adjustment for race. BUN/Creatinine Ratio 20.8 LAB CHEMISTRY METHOD 11/26/2024 7:10 AM [facility] Calcium 8.7 8.5 - 10.5 mg/dL LAB CHEMISTRY METHOD 11/26/2024 7:10 AM [facility] Blood Venous blood specimen / Unknown Venipuncture / Unknown 11/26/2024 5:49 AM EST 11/26/2024 6:33 AM EST Jaz DANIELS LAB BLOOD ORDERABLES [facility] [address] [place] [address], * (ABNORMAL) Complete blood count (11/25/2024 6:59 AM EST) WBC 9.7 4.8 - 10.8 K/mcL LAB HEMETOLOGY METHOD 11/25/2024 8:05 AM [facility] RBC 2.70(L) 3.80 - 4.80 M/mcL LAB HEMETOLOGY METHOD 11/25/2024 8:05 AM [facility] Hemoglobin 8.1(L) 11.5 - 16.0 g/dL LAB HEMETOLOGY METHOD 11/25/2024 8:05 AM [facility] Hematocrit 25.6(L) 35.0 - 47.0 % LAB HEMETOLOGY METHOD 11/25/2024 8:05 AM [facility] MCV 95.9 79.0 - 98.0 FL LAB HEMETOLOGY METHOD 11/25/2024 8:05 AM [facility] MCH 30.3 27.0 - 32.0 pcg LAB HEMETOLOGY METHOD 11/25/2024 8:05 AM [facility] MCHC 31.6(L) 32.0 - 37.0 g/dL LAB HEMETOLOGY METHOD 11/25/2024 8:05 AM [facility] RDW 15.9(H) 11.0 - 15.0 % LAB HEMETOLOGY METHOD 11/25/2024 8:05 AM [facility] Platelets 437(H) 130 - 400 K/mcL LAB HEMETOLOGY METHOD 11/25/2024 8:05 AM [facility] MPV 9.3 7.0 - 11.0 FL LAB HEMETOLOGY METHOD 11/25/2024 8:05 AM [facility] NRBC 0.0 <1.0 % LAB HEMETOLOGY METHOD 11/25/2024 8:05 AM [facility] NRBC Absolute 0.00 <0.10 K/mcL LAB HEMETOLOGY METHOD 11/25/2024 8:05 AM [facility] Blood Venous blood specimen / Unknown Venipuncture / Unknown 11/25/2024 6:59 AM EST 11/25/2024 7:47 AM EST Jaz DANIELS LAB BLOOD ORDERABLES [facility] [address] [place] [address], * (ABNORMAL) Basic metabolic panel (11/25/2024 6:59 AM EST) Sodium 136 133 - 145 mmol/L LAB CHEMISTRY METHOD 11/25/2024 8:47 AM [facility] Potassium 4.4 3.5 - 5.5 mmol/L LAB CHEMISTRY METHOD 11/25/2024 8:47 AM [facility] Chloride 104 96 - 110 mmol/L LAB CHEMISTRY METHOD 11/25/2024 8:47 AM [facility] CO2 30 21 - 32 mmol/L LAB CHEMISTRY METHOD 11/25/2024 8:47 AM [facility] Anion Gap 2(L) 3 - 11 LAB CHEMISTRY METHOD 11/25/2024 8:47 AM [facility] Glucose 95 70 - 100 mg/dL LAB CHEMISTRY METHOD 11/25/2024 8:47 AM [facility] BUN 16 5 - 25 mg/dL LAB CHEMISTRY METHOD 11/25/2024 8:47 AM [facility] Creatinine 0.75 0.50 - 1.10 mg/dL LAB CHEMISTRY METHOD 11/25/2024 8:47 AM [facility] eGFR 82 >=60 mL/min/1. 73m2 LAB CHEMISTRY METHOD 11/25/2024 8:47 AM [facility] Comment:Calculation based on the??Chronic Kidney Disease Epidemiology Collaboration (CKD-EPI) equation refit??without adjustment for race. BUN/Creatinine Ratio 21.3 LAB CHEMISTRY METHOD 11/25/2024 8:47 AM [facility] Calcium 8.8 8.5 - 10.5 mg/dL LAB CHEMISTRY METHOD 11/25/2024 8:47 AM [facility] Blood Venous blood specimen / Unknown Venipuncture / Unknown 11/25/2024 6:59 AM EST 11/25/2024 7:36 AM EST Jaz DANIELS LAB BLOOD ORDERABLES [facility] [address] [place] [address], * (ABNORMAL) Complete blood count (11/24/2024 6:24 AM EST) WBC 8.1 4.8 - 10.8 K/mcL LAB HEMETOLOGY METHOD 11/24/2024 7:31 AM [facility] RBC 2.80(L) 3.80 - 4.80 M/mcL LAB HEMETOLOGY METHOD 11/24/2024 7:31 AM [facility] Hemoglobin 8.8(L) 11.5 - 16.0 g/dL LAB HEMETOLOGY METHOD 11/24/2024 7:31 AM [facility] Hematocrit 26.9(L) 35.0 - 47.0 % LAB HEMETOLOGY METHOD 11/24/2024 7:31 AM [facility] MCV 96.1 79.0 - 98.0 FL LAB HEMETOLOGY METHOD 11/24/2024 7:31 AM [facility] MCH 31.4 27.0 - 32.0 pcg LAB HEMETOLOGY METHOD 11/24/2024 7:31 AM [facility] MCHC 32.7 32.0 - 37.0 g/dL LAB HEMETOLOGY METHOD 11/24/2024 7:31 AM [facility] RDW 15.4(H) 11.0 - 15.0 % LAB HEMETOLOGY METHOD 11/24/2024 7:31 AM [facility] Platelets 389 130 - 400 K/mcL LAB HEMETOLOGY METHOD 11/24/2024 7:31 AM EST [facility] MPV 9.2 7.0 - 11.0 FL LAB HEMETOLOGY METHOD 11/24/2024 7:31 AM EST [facility] NRBC 0.2 <1.0 % LAB HEMETOLOGY METHOD 11/24/2024 7:31 AM EST [facility] NRBC Absolute 0.02 <0.10 K/mcL LAB HEMETOLOGY METHOD 11/24/2024 7:31 AM EST [facility] Blood Venous blood specimen / Unknown Venipuncture / Unknown 11/24/2024 6:24 AM EST 11/24/2024 6:48 AM EST Jaz DANIELS LAB BLOOD ORDERABLES [facility] [address] [place] [address], * (ABNORMAL) Basic metabolic panel (11/24/2024 6:24 AM EST) Sodium 138 133 - 145 mmol/L LAB CHEMISTRY METHOD 11/24/2024 8:12 AM [facility] Potassium 4.1 3.5 - 5.5 mmol/L LAB CHEMISTRY METHOD 11/24/2024 8:12 AM [facility] Chloride 105 96 - 110 mmol/L LAB CHEMISTRY METHOD 11/24/2024 8:12 AM [facility] CO2 30 21 - 32 mmol/L LAB CHEMISTRY METHOD 11/24/2024 8:12 AM [facility] Anion Gap 3 3 - 11 LAB CHEMISTRY METHOD 11/24/2024 8:12 AM [facility] [facility] Glucose 101(H) 70 - 100 mg/dL LAB CHEMISTRY METHOD 11/24/2024 8:12 AM [facility] BUN 16 5 - 25 mg/dL LAB CHEMISTRY METHOD 11/24/2024 8:12 AM [facility] Creatinine 0.77 0.50 - 1.10 mg/dL LAB CHEMISTRY METHOD 11/24/2024 8:12 AM [facility] eGFR 80 >=60 mL/min/1. 73m2 LAB CHEMISTRY METHOD 11/24/2024 8:12 AM [facility] Comment:Calculation based on the??Chronic Kidney Disease Epidemiology Collaboration (CKD-EPI) equation refit??without adjustment for race. BUN/Creatinine Ratio 20.8 LAB CHEMISTRY METHOD 11/24/2024 8:12 AM [facility] Calcium 8.8 8.5 - 10.5 mg/dL LAB CHEMISTRY METHOD 11/24/2024 8:12 AM [facility] Blood Venous blood specimen / Unknown Venipuncture / Unknown 11/24/2024 6:24 AM EST 11/24/2024 6:48 AM EST Jaz DANIELS LAB BLOOD ORDERABLES [facility] [address] [place] [address], * (ABNORMAL) Complete blood count (11/23/2024 6:25 AM EST) WBC 9.4 4.8 - 10.8 K/mcL LAB HEMETOLOGY METHOD 11/23/2024 7:28 AM [facility] RBC 2.80(L) 3.80 - 4.80 M/mcL LAB HEMETOLOGY METHOD 11/23/2024 7:28 AM [facility] Hemoglobin 8.7(L) 11.5 - 16.0 g/dL LAB HEMETOLOGY METHOD 11/23/2024 7:28 AM [facility] Hematocrit 27.2(L) 35.0 - 47.0 % LAB HEMETOLOGY METHOD 11/23/2024 7:28 AM EST [facility] MCV 96.5 79.0 - 98.0 FL LAB HEMETOLOGY METHOD 11/23/2024 7:28 AM EST [facility] MCH 30.9 27.0 - 32.0 pcg LAB HEMETOLOGY METHOD 11/23/2024 7:28 AM EST [facility] MCHC 32.0 32.0 - 37.0 g/dL LAB HEMETOLOGY METHOD 11/23/2024 7:28 AM EST [facility] RDW 15.3(H) 11.0 - 15.0 % LAB HEMETOLOGY METHOD 11/23/2024 7:28 AM EST [facility] Platelets 345 130 - 400 K/mcL LAB HEMETOLOGY METHOD 11/23/2024 7:28 AM EST [facility] MPV 9.6 7.0 - 11.0 FL LAB HEMETOLOGY METHOD 11/23/2024 7:28 AM EST [facility] NRBC 0.0 <1.0 % LAB HEMETOLOGY METHOD 11/23/2024 7:28 AM EST [facility] NRBC Absolute 0.00 <0.10 K/mcL LAB HEMETOLOGY METHOD 11/23/2024 7:28 AM [facility] Blood Venous blood specimen / Unknown Venipuncture / Unknown 11/23/2024 6:25 AM EST 11/23/2024 7:04 AM EST Jaz DANIELS LAB BLOOD ORDERABLES [facility] [address] [place] [address], * Basic metabolic panel (11/23/2024 6:25 AM EST) Sodium 139 133 - 145 mmol/L LAB CHEMISTRY METHOD 11/23/2024 7:38 AM [facility] Potassium 4.2 3.5 - 5.5 mmol/L LAB CHEMISTRY METHOD 11/23/2024 7:38 AM [facility] Chloride 106 96 - 110 mmol/L LAB CHEMISTRY METHOD 11/23/2024 7:38 AM [facility] CO2 29 21 - 32 mmol/L LAB CHEMISTRY METHOD 11/23/2024 7:38 AM [facility] Anion Gap 4 3 - 11 LAB CHEMISTRY METHOD 11/23/2024 7:38 AM [facility] Glucose 89 70 - 100 mg/dL LAB CHEMISTRY METHOD 11/23/2024 7:38 AM [facility] BUN 15 5 - 25 mg/dL LAB CHEMISTRY METHOD 11/23/2024 7:38 AM [facility] Creatinine 0.64 0.50 - 1.10 mg/dL LAB CHEMISTRY METHOD 11/23/2024 7:38 AM [facility] eGFR 91 >=60 mL/min/1. 73m2 LAB CHEMISTRY METHOD 11/23/2024 7:38 AM [facility] Comment:Calculation based on the??Chronic Kidney Disease Epidemiology Collaboration (CKD-EPI) equation refit??without adjustment for race. BUN/Creatinine Ratio 23.4 LAB CHEMISTRY METHOD 11/23/2024 7:38 AM [facility] Calcium 8.9 8.5 - 10.5 mg/dL LAB CHEMISTRY METHOD 11/23/2024 7:38 AM [facility] Blood Venous blood specimen / Unknown Venipuncture / Unknown 11/23/2024 6:25 AM EST 11/23/2024 7:04 AM EST Jaz DANIELS LAB BLOOD ORDERABLES [facility] [address] [place] [address], * (ABNORMAL) Complete blood count (11/22/2024 6:37 AM EST) [facility] WBC 8.6 4.8 - 10.8 K/mcL LAB HEMETOLOGY METHOD 11/22/2024 7:20 AM [facility] RBC 2.70(L) 3.80 - 4.80 M/mcL LAB HEMETOLOGY METHOD 11/22/2024 7:20 AM [facility] Hemoglobin 8.3(L) 11.5 - 16.0 g/dL LAB HEMETOLOGY METHOD 11/22/2024 7:20 AM [facility] Hematocrit 25.9(L) 35.0 - 47.0 % LAB HEMETOLOGY METHOD 11/22/2024 7:20 AM [facility] MCV 96.6 79.0 - 98.0 FL LAB HEMETOLOGY METHOD 11/22/2024 7:20 AM [facility] MCH 31.0 27.0 - 32.0 pcg LAB HEMETOLOGY METHOD 11/22/2024 7:20 AM [facility] MCHC 32.0 32.0 - 37.0 g/dL LAB HEMETOLOGY METHOD 11/22/2024 7:20 AM [facility] RDW 15.0 11.0 - 15.0 % LAB HEMETOLOGY METHOD 11/22/2024 7:20 AM [facility] Platelets 273 130 - 400 K/mcL LAB HEMETOLOGY METHOD 11/22/2024 7:20 AM [facility] MPV 9.3 7.0 - 11.0 FL LAB HEMETOLOGY METHOD 11/22/2024 7:20 AM [facility] NRBC 0.0 <1.0 % LAB HEMETOLOGY METHOD 11/22/2024 7:20 AM [facility] NRBC Absolute 0.00 <0.10 K/mcL LAB HEMETOLOGY METHOD 11/22/2024 7:20 AM [facility] Blood Venous blood specimen / Unknown Venipuncture / Unknown 11/22/2024 6:37 AM EST 11/22/2024 7:01 AM EST Jaz DANIELS LAB BLOOD ORDERABLES [facility] [address] [place] [address], * (ABNORMAL) Basic metabolic panel (11/22/2024 6:37 AM EST) Sodium 139 133 - 145 mmol/L LAB CHEMISTRY METHOD 11/22/2024 8:17 AM [facility] Potassium 4.9 3.5 - 5.5 mmol/L LAB CHEMISTRY METHOD 11/22/2024 8:17 AM [facility] Chloride 106 96 - 110 mmol/L LAB CHEMISTRY METHOD 11/22/2024 8:17 AM [facility] CO2 31 21 - 32 mmol/L LAB CHEMISTRY METHOD 11/22/2024 8:17 AM [facility] Anion Gap 2(L) 3 - 11 LAB CHEMISTRY METHOD 11/22/2024 8:17 AM [facility] Glucose 98 70 - 100 mg/dL LAB CHEMISTRY METHOD 11/22/2024 8:17 AM [facility] BUN 17 5 - 25 mg/dL LAB CHEMISTRY METHOD 11/22/2024 8:17 AM [facility] Creatinine 0.64 0.50 - 1.10 mg/dL LAB CHEMISTRY METHOD 11/22/2024 8:17 AM [facility] eGFR 91 >=60 mL/min/1. 73m2 LAB CHEMISTRY METHOD 11/22/2024 8:17 AM [facility] Comment:Calculation [...] AM EST Jaz DANIELS LAB BLOOD ORDERABLES [facility] ([facility]) [facility] [address] [place] [address], * CT Head wo Contrast (11/21/2024 8:31 [...] Signed Date: 11/21/2024 08:46 ET Workstation ID: [id number] Transcribed By: Self Edit Transcribed Date: 11/21/2024 [...] Signed Date: 11/21/2024 08:46 ET Workstation ID: [id number] Transcribed By: Self Edit Transcribed Date: 11/21/2024 08:43 ET Janey DANIELS IMG CT PROCEDURES * (ABNORMAL) Complete blood count (11/21/2024 5:41 AM EST) WBC 8.4 4.8 - 10.8 K/mcL LAB HEMETOLOGY METHOD 11/21/2024 7:17 AM EST [facility] RBC 2.70(L) 3.80 - 4.80 M/mcL LAB HEMETOLOGY METHOD 11/21/2024 7:17 AM EST [facility] Hemoglobin 8.2(L) 11.5 - 16.0 g/dL LAB HEMETOLOGY METHOD 11/21/2024 7:17 AM [facility] Hematocrit 26.0(L) 35.0 - 47.0 % LAB HEMETOLOGY METHOD 11/21/2024 7:17 AM [facility] MCV 96.3 79.0 - 98.0 FL LAB HEMETOLOGY METHOD 11/21/2024 7:17 AM [facility] MCH 30.4 27.0 - 32.0 pcg LAB HEMETOLOGY METHOD 11/21/2024 7:17 AM [facility] MCHC 31.5(L) 32.0 - 37.0 g/dL LAB HEMETOLOGY METHOD 11/21/2024 7:17 AM [facility] RDW 15.2(H) 11.0 - 15.0 % LAB HEMETOLOGY METHOD 11/21/2024 7:17 AM [facility] Platelets 235 130 - 400 K/mcL LAB HEMETOLOGY METHOD 11/21/2024 7:17 AM [facility] MPV 9.8 7.0 - 11.0 FL LAB HEMETOLOGY METHOD 11/21/2024 7:17 AM [facility] NRBC 0.0 <1.0 % LAB HEMETOLOGY METHOD 11/21/2024 7:17 AM [facility] NRBC Absolute 0.00 <0.10 K/mcL LAB HEMETOLOGY METHOD 11/21/2024 7:17 AM [facility] Blood Venous blood specimen / Unknown Venipuncture / Unknown 11/21/2024 5:41 AM EST 11/21/2024 6:25 AM EST Jaz DANIELS LAB BLOOD ORDERABLES [facility] [address] [place] [address], * (ABNORMAL) Basic metabolic panel (11/21/2024 5:41 AM EST) Sodium 138 133 - 145 mmol/L LAB CHEMISTRY METHOD 11/21/2024 7:13 AM [facility] Potassium 4.0 3.5 - 5.5 mmol/L LAB CHEMISTRY METHOD 11/21/2024 7:13 AM [facility] Chloride 104 96 - 110 mmol/L LAB CHEMISTRY METHOD 11/21/2024 7:13 AM [facility] CO2 29 21 - 32 mmol/L LAB CHEMISTRY METHOD 11/21/2024 7:13 AM [facility] Anion Gap 5 3 - 11 LAB CHEMISTRY METHOD 11/21/2024 7:13 AM [facility] Glucose 99 70 - 100 mg/dL LAB CHEMISTRY METHOD 11/21/2024 7:13 AM [facility] BUN 18 5 - 25 mg/dL LAB CHEMISTRY METHOD 11/21/2024 7:13 AM [facility] Creatinine 0.60 0.50 - 1.10 mg/dL LAB CHEMISTRY METHOD 11/21/2024 7:13 AM [facility] eGFR 93 >=60 mL/min/1. 73m2 LAB CHEMISTRY METHOD 11/21/2024 7:13 AM [facility] Comment:Calculation based on the??Chronic Kidney Disease Epidemiology Collaboration (CKD-EPI) equation refit??without adjustment for race. BUN/Creatinine Ratio 30.0 LAB CHEMISTRY METHOD 11/21/2024 7:13 AM [facility] Calcium 8.1(L) 8.5 - 10.5 mg/dL LAB CHEMISTRY METHOD 11/21/2024 7:13 AM [facility] Blood Venous blood specimen / Unknown Venipuncture / Unknown 11/21/2024 5:41 AM EST 11/21/2024 6:25 AM EST Jaz DANIELS LAB BLOOD ORDERABLES [facility] [address] [place] [address], * (ABNORMAL) Complete blood count (11/20/2024 6:09 AM EST) WBC 7.6 4.8 - 10.8 K/mcL LAB HEMETOLOGY METHOD 11/20/2024 7:53 AM EST [facility] RBC 2.70(L) 3.80 - 4.80 M/[facility] LAB HEMETOLOGY METHOD 11/20/2024 7:53 AM [facility] Hemoglobin 8.3(L) 11.5 - 16.0 g/dL LAB HEMETOLOGY METHOD 11/20/2024 7:53 AM [facility] Hematocrit 26.4(L) 35.0 - 47.0 % LAB HEMETOLOGY METHOD 11/20/2024 7:53 AM [facility] MCV 97.8 79.0 - 98.0 FL LAB HEMETOLOGY METHOD 11/20/2024 7:53 AM [facility] MCH 30.7 27.0 - 32.0 pcg LAB HEMETOLOGY METHOD 11/20/2024 7:53 AM [facility] MCHC 31.4(L) 32.0 - 37.0 g/dL LAB HEMETOLOGY METHOD 11/20/2024 7:53 AM [facility] RDW 15.4(H) 11.0 - 15.0 % LAB HEMETOLOGY METHOD 11/20/2024 7:53 AM [facility] Platelets 195 130 - 400 K/[facility] LAB HEMETOLOGY METHOD 11/20/2024 7:53 AM [facility] MPV 10.1 7.0 - 11.0 FL LAB HEMETOLOGY METHOD 11/20/2024 7:53 AM EST [facility] NRBC 0.0 <1.0 % LAB HEMETOLOGY METHOD 11/20/2024 7:53 AM [facility] NRBC Absolute 0.00 <0.10 K/mcL LAB HEMETOLOGY METHOD 11/20/2024 7:53 AM [facility] Blood Venous blood specimen / Unknown Venipuncture / Unknown 11/20/2024 6:09 AM EST 11/20/2024 7:28 AM EST Jaz DANIELS LAB BLOOD ORDERABLES [facility] [address] [place] [address], * (ABNORMAL) Basic metabolic panel (11/20/2024 6:09 AM EST) Sodium 138 133 - 145 mmol/L LAB CHEMISTRY METHOD 11/20/2024 8:32 AM [facility] Potassium 4.1 3.5 - 5.5 mmol/L LAB CHEMISTRY METHOD 11/20/2024 8:32 AM [facility] Chloride 106 96 - 110 mmol/L LAB CHEMISTRY METHOD 11/20/2024 8:32 AM [facility] CO2 30 21 - 32 mmol/L LAB CHEMISTRY METHOD 11/20/2024 8:32 AM [facility] Anion Gap 2(L) 3 - 11 LAB CHEMISTRY METHOD 11/20/2024 8:32 AM [facility] Glucose 94 70 - 100 mg/dL LAB CHEMISTRY METHOD 11/20/2024 8:32 AM [facility] BUN 21 5 - 25 mg/dL LAB CHEMISTRY METHOD 11/20/2024 8:32 AM [facility] Creatinine 0.67 0.50 - 1.10 mg/dL LAB CHEMISTRY METHOD 11/20/2024 8:32 AM [facility] eGFR 90 >=60 mL/min/1. 73m2 LAB CHEMISTRY METHOD 11/20/2024 8:32 AM EST [facility] Comment:Calculation based on the??Chronic Kidney Disease Epidemiology Collaboration (CKD-EPI) equation refit??without adjustment for race. BUN/Creatinine Ratio 31.3 LAB CHEMISTRY METHOD 11/20/2024 8:32 AM EST [facility] Calcium 8.3(L) 8.5 - 10.5 mg/dL LAB CHEMISTRY METHOD 11/20/2024 8:32 AM [facility] Blood Venous blood specimen / Unknown Venipuncture / Unknown 11/20/2024 6:09 AM EST 11/20/2024 7:26 AM EST Jaz DANIELS LAB BLOOD ORDERABLES [facility] [address] [place] [address], * (ABNORMAL) Complete blood count (11/19/2024 6:01 AM EST) WBC 8.1 4.8 - 10.8 K/mcL LAB HEMETOLOGY METHOD 11/19/2024 7:06 AM [facility] RBC 2.70(L) 3.80 - 4.80 M/mcL LAB HEMETOLOGY METHOD 11/19/2024 7:06 AM [facility] Hemoglobin 8.3(L) 11.5 - 16.0 g/dL LAB HEMETOLOGY METHOD 11/19/2024 7:06 AM [facility] Hematocrit 25.8(L) 35.0 - 47.0 % LAB HEMETOLOGY METHOD 11/19/2024 7:06 AM [facility] MCV 95.2 79.0 - 98.0 FL LAB HEMETOLOGY METHOD 11/19/2024 7:06 AM [facility] MCH 30.6 27.0 - 32.0 pcg LAB HEMETOLOGY METHOD 11/19/2024 7:06 AM [facility] MCHC 32.2 32.0 - 37.0 g/dL LAB HEMETOLOGY METHOD 11/19/2024 7:06 AM [facility] RDW 15.6(H) 11.0 - 15.0 % LAB HEMETOLOGY METHOD 11/19/2024 7:06 AM [facility] Platelets 165 130 - 400 K/mcL LAB HEMETOLOGY METHOD 11/19/2024 7:06 AM [facility] MPV 10.4 7.0 - 11.0 FL LAB HEMETOLOGY METHOD 11/19/2024 7:06 AM [facility] NRBC 0.0 <1.0 % LAB HEMETOLOGY METHOD 11/19/2024 7:06 AM [facility] NRBC Absolute 0.00 <0.10 K/mcL LAB HEMETOLOGY METHOD 11/19/2024 7:06 AM [facility] Blood Venous blood specimen / Unknown Venipuncture / Unknown 11/19/2024 6:01 AM EST 11/19/2024 6:38 AM EST Jaz DANIELS LAB BLOOD ORDERABLES [facility] [address] [place] [address], * (ABNORMAL) Basic metabolic panel (11/19/2024 6:01 AM EST) Sodium 139 133 - 145 mmol/L LAB CHEMISTRY METHOD 11/19/2024 7:25 AM [facility] Potassium 4.0 3.5 - 5.5 mmol/L LAB CHEMISTRY METHOD 11/19/2024 7:25 AM [facility] Chloride 108 96 - 110 mmol/L LAB CHEMISTRY METHOD 11/19/2024 7:25 AM [facility] CO2 27 21 - 32 mmol/L LAB CHEMISTRY METHOD 11/19/2024 7:25 AM [facility] Anion Gap 4 3 - 11 LAB CHEMISTRY METHOD 11/19/2024 7:25 AM [facility] Glucose 97 70 - 100 mg/dL LAB CHEMISTRY METHOD 11/19/2024 7:25 AM [facility] BUN 25 5 - 25 mg/dL LAB CHEMISTRY METHOD 11/19/2024 7:25 AM [facility] Creatinine 0.71 0.50 - 1.10 mg/dL LAB CHEMISTRY METHOD 11/19/2024 7:25 AM [facility] eGFR 88 >=60 mL/min/1. 73m2 LAB CHEMISTRY METHOD 11/19/2024 7:25 AM [facility] Comment:Calculation based on the??Chronic Kidney Disease Epidemiology Collaboration (CKD-EPI) equation refit??without adjustment for race. BUN/Creatinine Ratio 35.2 LAB CHEMISTRY METHOD 11/19/2024 7:25 AM [facility] Calcium 8.1(L) 8.5 - 10.5 mg/dL LAB CHEMISTRY METHOD 11/19/2024 7:25 AM [facility] Blood Venous blood specimen / Unknown Venipuncture / Unknown 11/19/2024 6:01 AM EST 11/19/2024 6:37 AM EST Jaz DANIELS LAB BLOOD ORDERABLES [facility] [address] [place] [address], * MR Brain wo Contrast (11/18/2024 7:01 [...] Date: 11/18/2024 14:28 ET Assigned Physician: Vinayak Austni Reviewed and Electronically Signed By: Vinayak Austin Signed Date: 11/18/2024 14:33 ET Workstation ID: [id number] Transcribed By: Self Edit Transcribed Date: 11/18/2024 [...] Signed Date: 11/18/2024 14:33 ET Workstation ID: [id number] Transcribed By: Self Edit Transcribed Date: 11/18/2024 14:28 ET Evangelina DANIELS IMG CT PROCEDURES * (ABNORMAL) TRANSTHORACIC ECHOCARDIOGRAM (TTE) [...] 76 mL CV PACS Left [facility] Minor [place] 5.3 cm CV PACS Left [facility] Major [place] 5.5 cm CV PACS [place] Area Sys [...] Proximal 1.5 cm CV PACS MV Deceleration [place] 5.0 m/s2 CV PACS E Wave Deceleration [...] Complete blood count (11/18/2024 5:44 AM EST) [facility] WBC 8.2 4.8 - 10.8 K/mcL LAB HEMETOLOGY METHOD 11/18/2024 7:01 AM EST [facility] RBC 3.00(L) 3.80 - 4.80 M/mcL LAB HEMETOLOGY METHOD 11/18/2024 7:01 AM [facility] Hemoglobin 9.0(L) 11.5 - 16.0 g/dL LAB HEMETOLOGY METHOD 11/18/2024 7:01 AM [facility] Hematocrit 27.8(L) 35.0 - 47.0 % LAB HEMETOLOGY METHOD 11/18/2024 7:01 AM [facility] MCV 94.2 79.0 - 98.0 FL LAB HEMETOLOGY METHOD 11/18/2024 7:01 AM [facility] MCH 30.5 27.0 - 32.0 pcg LAB HEMETOLOGY METHOD 11/18/2024 7:01 AM [facility] MCHC 32.4 32.0 - 37.0 g/dL LAB HEMETOLOGY METHOD 11/18/2024 7:01 AM [facility] RDW 15.6(H) 11.0 - 15.0 % LAB HEMETOLOGY METHOD 11/18/2024 7:01 AM [facility] Platelets 158 130 - 400 K/mcL LAB HEMETOLOGY METHOD 11/18/2024 7:01 AM [facility] MPV 10.6 7.0 - 11.0 FL LAB HEMETOLOGY METHOD 11/18/2024 7:01 AM [facility] NRBC 0.0 <1.0 % LAB HEMETOLOGY METHOD 11/18/2024 7:01 AM [facility] NRBC Absolute 0.00 <0.10 K/mcL LAB HEMETOLOGY METHOD 11/18/2024 7:01 AM [facility] Blood Venous blood specimen / Unknown Venipuncture / Unknown 11/18/2024 5:44 AM EST 11/18/2024 6:15 AM EST Jaz DANIELS LAB BLOOD ORDERABLES [facility] [address] [place] [address], * (ABNORMAL) Basic metabolic panel (11/18/2024 5:44 AM EST) Sodium 140 133 - 145 mmol/L LAB CHEMISTRY METHOD 11/18/2024 7:00 AM [facility] Potassium 4.7 3.5 - 5.5 mmol/L LAB CHEMISTRY METHOD 11/18/2024 7:00 AM [facility] Chloride 108 96 - 110 mmol/L LAB CHEMISTRY METHOD 11/18/2024 7:00 AM [facility] CO2 25 21 - 32 mmol/L LAB CHEMISTRY METHOD 11/18/2024 7:00 AM [facility] Anion Gap 7 3 - 11 LAB CHEMISTRY METHOD 11/18/2024 7:00 AM [facility] Glucose 119(H) 70 - 100 mg/dL LAB CHEMISTRY METHOD 11/18/2024 7:00 AM [facility] BUN 27(H) 5 - 25 mg/dL LAB CHEMISTRY METHOD 11/18/2024 7:00 AM [facility] Creatinine 0.89 0.50 - 1.10 mg/dL LAB CHEMISTRY METHOD 11/18/2024 7:00 AM [facility] eGFR 67 >=60 mL/min/1. 73m2 LAB CHEMISTRY METHOD 11/18/2024 7:00 AM [facility] Comment:Calculation based on the??Chronic Kidney Disease Epidemiology Collaboration (CKD-EPI) equation refit??without adjustment for race. BUN/Creatinine Ratio 30.3 LAB CHEMISTRY METHOD 11/18/2024 7:00 AM [facility] Calcium 8.4(L) 8.5 - 10.5 mg/dL LAB CHEMISTRY METHOD 11/18/2024 7:00 AM [facility] Blood Venous blood specimen / Unknown Venipuncture / Unknown 11/18/2024 5:44 AM EST 11/18/2024 6:15 AM EST Jaz DANIELS LAB BLOOD ORDERABLES [facility] ([facility]) [facility] [address] [place] [address], * XR Pelvis 1-2 Views (11/17/2024 4:41 PM EST) Anatomical Region Laterality Modality Body, Pelvis Radiographic Jalyn ging 11/17/2024 4:53 PM EST Impressions 11/17/2024 4:54 PM EST Impression: Postop left femoral endoprosthesis placement, with prosthesis appearing satisfactorily positioned. Telerad FRANCES ([id number]) -------- FINAL REPORT -------- Dictated By: Muna Roblero Dictated Date: 11/17/2024 16:53 ET Assigned Physician: Muna Roblero Reviewed and Electronically Signed By: Muna Roblero Signed Date: 11/17/2024 16:54 ET Workstation ID: [id number] Transcribed By: Self Edit Transcribed Date: 11/17/2024 [...] placement, with prosthesis appearingsatisfactorily positioned. Ganesh DANIELS ([id number]) -------- FINAL REPORT -------- Dictated By: Muna Roblero Dictated Date: 11/17/2024 16:53 ET Assigned Physician: Muna Roblero Reviewed and Electronically Signed By: Muna Roblero Signed Date: 11/17/2024 16:54 ET Workstation ID: [id number] Transcribed By: Self Edit Transcribed Date: 11/17/2024 [...] Signed Date: 11/18/2024 06:58 ET Workstation ID: [id number] Transcribed By: Self Edit Transcribed Date: 11/18/2024 [...] Signed Date: 11/18/2024 06:58 ET Workstation ID: [id number] Transcribed By: Self Edit Transcribed Date: 11/18/2024 06:55 ET Elva Hester MD IMG XR PROCEDURES * Tissue exam (11/17/2024 1:17 PM EST) Final Diagnosis Bone, left femoral head: -CONSISTENT WITH FRACTURE 11/19/2024 10:45 AM [facility] Gross Description A. Bone, left femoral [...] with some hemorrhage around the margin. A customer service representative teacher section is submitted in one cassette following decalcification, one piece [facility] 11[facility]19[facility]2024 10:45 [facility] Disclaimer Unless otherwise specified, all tissue is 10% NB formalin fixed and paraffin embedded. 11/19/2024 10:45 AM [facility] Bone Specimen from bone / Unknown 11/17/2024 1:17 PM EST 11/17/2024 3:55 PM EST Elva Hester MD LAB PATHOLOGY ORD ERABLES [facility] [address] [place] [address], * (ABNORMAL) CBC auto differential (11/17/2024 6:43 AM EST) WBC 7.4 4.8 - 10.8 K/mcL LAB HEMETOLOGY METHOD 11/17/2024 7:26 AM [facility] RBC 3.40(L) 3.80 - 4.80 M/mcL LAB HEMETOLOGY METHOD 11/17/2024 7:26 AM [facility] Hemoglobin 10.6(L) 11.5 - 16.0 g/dL LAB HEMETOLOGY METHOD 11/17/2024 7:26 AM [facility] Hematocrit 32.3(L) 35.0 - 47.0 % LAB HEMETOLOGY METHOD 11/17/2024 7:26 AM [facility] MCV 94.2 79.0 - 98.0 FL LAB HEMETOLOGY METHOD 11/17/2024 7:26 AM [facility] MCH 30.9 27.0 - 32.0 pcg LAB HEMETOLOGY METHOD 11/17/2024 7:26 AM [facility] MCHC 32.8 32.0 - 37.0 g/dL LAB HEMETOLOGY METHOD 11/17/2024 7:26 AM [facility] RDW 15.3(H) 11.0 - 15.0 % LAB HEMETOLOGY METHOD 11/17/2024 7:26 AM [facility] Platelets 150 130 - 400 K/mcL LAB HEMETOLOGY METHOD 11/17/2024 7:26 AM [facility] LAB MPV 10.6 7.0 - 11.0 FL LAB HEMETOLOGY METHOD 11/17/2024 7:26 AM [facility] LAB NRBC 0.0 <1.0 % LAB HEMETOLOGY METHOD 11/17/2024 7:26 AM [facility] LAB NRBC Absolute 0.00 <0.10 K/mcL LAB HEMETOLOGY METHOD 11/17/2024 7:26 AM [facility] LAB Neutrophils Relative 73.8 % LAB HEMETOLOGY METHOD 11/17/2024 7:26 AM [facility] LAB Lymphocytes Relative 11.4 % LAB HEMETOLOGY METHOD 11/17/2024 7:26 AM [facility] LAB Monocytes Relative 9.7 % LAB HEMETOLOGY METHOD 11/17/2024 7:26 AM [facility] LAB Eosinophils Relative 4.3 % LAB HEMETOLOGY METHOD 11/17/2024 7:26 AM [facility] LAB Basophils Relative 0.3 % LAB HEMETOLOGY METHOD 11/17/2024 7:26 AM [facility] LAB Immature Granulocytes Relative 0.5 % LAB HEMETOLOGY METHOD 11/17/2024 7:26 AM [facility] LAB Neutrophils Absolute 5.48 1.50 - 7.00 K/mcL LAB HEMETOLOGY METHOD 11/17/2024 7:26 AM [facility] LAB Lymphocytes Absolute 0.85(L) 1.00 - 5.00 K/mcL LAB HEMETOLOGY METHOD 11/17/2024 7:26 AM [facility] LAB Monocytes Absolute 0.72 0.20 - 1.00 K/mcL LAB HEMETOLOGY METHOD 11/17/2024 7:26 AM [facility] LAB Eosinophils Absolute 0.32 0.00 - 0.50 K/[facility] LAB HEMETOLOGY METHOD 11/17/2024 7:26 AM EST [facility] LAB Basophils Absolute 0.02 0.00 - 0.20 K/[facility] LAB HEMETOLOGY METHOD 11/17/2024 7:26 AM EST [facility] LAB Immature Granulocytes Absolute 0.04(H) 0.00 - 0.03 K/[facility] LAB HEMETOLOGY METHOD 11/17/2024 7:26 AM EST [facility] LAB Blood Venous blood specimen / Unknown Venipuncture / Unknown 11/17/2024 6:43 AM EST 11/17/2024 7:07 AM EST Bhavin Garcia MD LAB BLOOD ORDERABLES [facility] [address] [place] [address], * (ABNORMAL) Basic metabolic panel (11/17/2024 6:43 AM EST) Sodium 139 133 - 145 mmol/L LAB CHEMISTRY METHOD 11/17/2024 7:49 AM [facility] LAB Potassium 3.3(L) 3.5 - 5.5 mmol/L LAB CHEMISTRY METHOD 11/17/2024 7:49 AM [facility] Chloride 107 96 - 110 mmol/L LAB CHEMISTRY METHOD 11/17/2024 7:49 AM [facility] LAB CO2 27 21 - 32 mmol/L LAB CHEMISTRY METHOD 11/17/2024 7:49 AM [facility] LAB Anion Gap 5 3 - 11 LAB CHEMISTRY METHOD 11/17/2024 7:49 AM [facility] LAB Glucose 100 70 - 100 mg/dL LAB CHEMISTRY METHOD 11/17/2024 7:49 AM [facility] LAB BUN 16 5 - 25 mg/dL LAB CHEMISTRY METHOD 11/17/2024 7:49 AM EST [facility] LAB Creatinine 0.63 0.50 - 1.10 mg/dL LAB CHEMISTRY METHOD 11/17/2024 7:49 AM EST [facility] LAB eGFR 91 >=60 mL/min/1. 73m2 LAB CHEMISTRY METHOD 11/17/2024 7:49 AM [facility] LAB Comment:Calculation based on the??Chronic Kidney Disease Epidemiology Collaboration (CKD-EPI) equation refit??without adjustment for race. BUN/Creatinine Ratio 25.4 LAB CHEMISTRY METHOD 11/17/2024 7:49 AM [facility] LAB Calcium 8.5 8.5 - 10.5 mg/dL LAB CHEMISTRY METHOD 11/17/2024 7:49 AM [facility] LAB Blood Venous blood specimen / Unknown Venipuncture / Unknown 11/17/2024 6:43 AM EST 11/17/2024 7:12 AM EST Bhavin Garcia MD LAB BLOOD ORDERABLES [facility] [address] [place] [address], * CT Angio Chest wo and/or w [...] Signed Date: 11/16/2024 10:45 ET Workstation ID: [id number] Transcribed By: Self Edit Transcribed Date: 11/16/2024 10:26 ET Narrative 11/16/2024 10:45 AM EST EXAMINATION: CTA chest with contrast. CLINICAL INDICATION: SOB. Hip fracture. Rule out PE. COMPARISON: Chest x-ray 11/16/2024. TECHNIQUE: 2.5 mm thin axial and reformatted 3 mm thin sagittal and coronal images of chest were obtained following IV 90 mL Isovue-[id number]. Scanner: Vartopia LightSpeed 64 slice VCT Dose reduction technique: ASIR [...] were obtained following IV 90 mL Isovue-370.Scanner: DataRPMpeed 64 slice VCT Dose reduction technique: ASIR [...] Signed Date: 11/16/2024 10:45 ET Workstation ID: [id number] Transcribed By: Self Edit Transcribed Date: 11/16/2024 10:26 ET Rochelle DANIELS IM CT PROCEDURES * Respiratory virus panel molecular study (11/16/2024 5:44 AM EST) Adenovirus Detection by PCR Not Detected Not Detected LAB MICROBIOLOGY METHOD 11/16/2024 7:20 AM [facility] Influenza A PCR Not Detected Not Detected LAB MICROBIOLOGY METHOD 11/16/2024 7:20 AM [facility] Influenza B PCR Not Detected Not Detected LAB MICROBIOLOGY METHOD 11/16/2024 7:20 AM [facility] Coronavirus 229E Not Detected Not Detected LAB MICROBIOLOGY METHOD 11/16/2024 7:20 AM [facility] Coronavirus HKU1 Not Detected Not Detected LAB MICROBIOLOGY METHOD 11/16/2024 7:20 AM [facility] Coronavirus OC43 Not Detected Not Detected LAB MICROBIOLOGY METHOD 11/16/2024 7:20 AM [facility] Coronavirus NL63 Not Detected Not Detected LAB MICROBIOLOGY METHOD 11/16/2024 7:20 AM [facility] Parainfluenza Virus 1 Not Detected Not Detected LAB MICROBIOLOGY METHOD 11/16/2024 7:20 AM [facility] Parainfluenza Virus 2 Not Detected Not Detected LAB MICROBIOLOGY METHOD 11/16/2024 7:20 AM [facility] Parainfluenza Virus 3 Not Detected Not Detected LAB MICROBIOLOGY METHOD 11/16/2024 7:20 AM [facility] Parainfluenza Virus 4 Not Detected Not Detected LAB MICROBIOLOGY METHOD 11/16/2024 7:20 AM [facility] RSV PCR Not Detected Not Detected LAB MICROBIOLOGY METHOD 11/16/2024 7:20 AM [facility] Human Metapneumovirus A and B Not Detected Not Detected LAB MICROBIOLOGY METHOD 11/16/2024 7:20 AM [facility] Rhinovirus/Entero virus Not Detected Not Detected LAB MICROBIOLOGY METHOD 11/16/2024 7:20 AM [facility] Bordetella pertussis Not Detected Not Detected LAB MICROBIOLOGY METHOD 11/16/2024 7:20 AM [facility] Bordetella parapertussis Not Detected Not Detected LAB MICROBIOLOGY METHOD 11/16/2024 7:20 AM [facility] Mycoplasma pneumo by PCR Not Detected Not Detected LAB MICROBIOLOGY METHOD 11/16/2024 7:20 AM [facility] Chlamydia pneumoniae Not Detected Not Detected LAB MICROBIOLOGY METHOD 11/16/2024 7:20 AM [facility] SARS COV-2 Not Detected Not Detected LAB MICROBIOLOGY METHOD 11/16/2024 7:20 AM [facility] Swab Structure of right anterior naris / Unknown Non-blood Collection / Unknown 11/16/2024 5:44 AM EST 11/16/2024 6:27 AM [facility] LAB - 11/16/2024 7:20 AM EST Testing was performed using the [employer]ipherCloud Respiratory Pathogen PCR Assay. All results must [...] [facility] [address] [place] [address], [place] [phone] * (ABNORMAL) Arterial blood gas (11/16/2024 5:42 AM EST) pH, Arterial 7.47(H) 7.35 - 7.45 pH 11/16/2024 6:05 AM [facility] pCO2, Arterial 32(L) 35 - 45 mmHg 11/16/2024 6:05 AM [facility] pO2, Arterial 56(LL) 80 - 100 mmHg 11/16/2024 6:05 AM [facility] HCO3, Arterial 24.8 22.0 - 26.0 mmol/L 11/16/2024 6:05 AM [facility] O2 Sat, Arterial 89.9(L) 95.0 - 98.0 % 11/16/2024 6:05 AM [facility] Base Excess, Arterial 0.1 -2.0 - 2.0 mmol/L 11/16/2024 6:05 AM [facility] LAB Al Test Pass Pass, Unresponsi ve, Line 11/16/2024 6:05 AM [facility] FIO2 21.00 11/16/2024 6:05 AM [facility] Blood Arterial blood specimen / Unknown Arterial Puncture / Unknown 11/16/2024 5:42 AM EST 11/16/2024 5:47 AM EST Rochelle DANIELS LAB BLOOD ORDERABLES [facility] [address] [place] [address], [place] [phone] * XR Chest 1 View (11/16/2024 4:48 [...] Signed Date: 11/16/2024 07:11 ET Workstation ID: [id number] Transcribed By: Self Edit Transcribed Date: 11/16/2024 [...] Signed Date: 11/16/2024 07:11 ET Workstation ID: [id number] Transcribed By: Self Edit Transcribed Date: 11/16/2024 [...] Signed Date: 11/15/2024 08:30 ET Workstation ID: [id number] Transcribed By: Self Edit Transcribed Date: 11/15/2024 08:25 ET Narrative 11/15/2024 8:30 AM EST Examination: CT brain without contrast. CLINICAL INDICATION: Follow-up subdural hematoma. COMPARISON: CT brain 11/14/2024 at 2:10 PM. TECHNIQUE: Routine 2.5 mm thin axial and reformatted 3 mm thin sagittal and coronal images of brain were obtained. Scanner: DataRPMpeSwapDrive 64 slice VCT Dose reduction technique: ASIR [...] coronal images of brain were obtained. Scanner: ZapMe 64 sliceVCT Dose reduction technique: ASIR (Adaptive [...] Signed Date: 11/15/2024 08:30 ET Workstation ID: [id number] Transcribed By: Self Edit Transcribed Date: 11/15/2024 08:25 ET Hardik DANIELS G CT PROCEDURES * Vitamin B12 (11/15/2024 6:27 AM EST) Vitamin B-12 265 250 - 900 pcg/mL LAB CHEMISTRY METHOD 11/15/2024 6:00 PM EST [facility] LAB Blood Venous blood specimen / Unknown Venipuncture / Unknown 11/15/2024 6:27 AM EST 11/15/2024 7:04 AM EST Bhavin Garcia MD LAB BLOOD ORDERABLES [facility] [address] [place] [address], * (ABNORMAL) CBC auto differential (11/15/2024 6:27 AM EST) [facility] Signature WBC 8.8 4.8 - 10.8 K/mcL LAB HEMETOLOGY METHOD 11/15/2024 7:22 AM [facility] RBC 3.60(L) 3.80 - 4.80 M/mcL LAB HEMETOLOGY METHOD 11/15/2024 7:22 AM [facility] LAB Hemoglobin 11.0(L) 11.5 - 16.0 g/dL LAB HEMETOLOGY METHOD 11/15/2024 7:22 AM [facility] LAB Hematocrit 34.2(L) 35.0 - 47.0 % LAB HEMETOLOGY METHOD 11/15/2024 7:22 AM [facility] LAB MCV 95.3 79.0 - 98.0 FL LAB HEMETOLOGY METHOD 11/15/2024 7:22 AM [facility] LAB MCH 30.6 27.0 - 32.0 pcg LAB HEMETOLOGY METHOD 11/15/2024 7:22 AM [facility] LAB MCHC 32.2 32.0 - 37.0 g/dL LAB HEMETOLOGY METHOD 11/15/2024 7:22 AM [facility] LAB RDW 15.2(H) 11.0 - 15.0 % LAB HEMETOLOGY METHOD 11/15/2024 7:22 AM [facility] LAB Platelets 162 130 - 400 K/mcL LAB HEMETOLOGY METHOD 11/15/2024 7:22 AM [facility] LAB MPV 10.8 7.0 - 11.0 FL LAB HEMETOLOGY METHOD 11/15/2024 7:22 AM [facility] LAB NRBC 0.0 <1.0 % LAB HEMETOLOGY METHOD 11/15/2024 7:22 AM [facility] LAB NRBC Absolute 0.00 <0.10 K/mcL LAB HEMETOLOGY METHOD 11/15/2024 7:22 AM [facility] Neutrophils Relative 83.6 % LAB HEMETOLOGY METHOD 11/15/2024 7:22 AM [facility] Lymphocytes Relative 6.8 % LAB HEMETOLOGY METHOD 11/15/2024 7:22 AM [facility] Monocytes Relative 5.8 % LAB HEMETOLOGY METHOD 11/15/2024 7:22 AM [facility] Eosinophils Relative 3.3 % LAB HEMETOLOGY METHOD 11/15/2024 7:22 AM [facility] Basophils Relative 0.2 % LAB HEMETOLOGY METHOD 11/15/2024 7:22 AM [facility] Immature Granulocytes Relative 0.3 % LAB HEMETOLOGY METHOD 11/15/2024 7:22 AM [facility] Neutrophils Absolute 7.33(H) 1.50 - 7.00 K/mcL LAB HEMETOLOGY METHOD 11/15/2024 7:22 AM [facility] Lymphocytes Absolute 0.60(L) 1.00 - 5.00 K/mcL LAB HEMETOLOGY METHOD 11/15/2024 7:22 AM [facility] Monocytes Absolute 0.51 0.20 - 1.00 K/mcL LAB HEMETOLOGY METHOD 11/15/2024 7:22 AM [facility] Eosinophils Absolute 0.29 0.00 - 0.50 K/mcL LAB HEMETOLOGY METHOD 11/15/2024 7:22 AM [facility] Basophils Absolute 0.02 0.00 - 0.20 K/mcL LAB HEMETOLOGY METHOD 11/15/2024 7:22 AM [facility] Immature Granulocytes Absolute 0.03 0.00 - 0.03 K/mcL LAB HEMETOLOGY METHOD 11/15/2024 7:22 AM EST [facility] LAB Blood Venous blood specimen / Unknown Venipuncture / Unknown 11/15/2024 6:27 AM EST 11/15/2024 7:05 AM EST Demarcus Villalobos MD LAB BLOOD ORDERABLES Performing Organization Address City/[facility]/ZIP Co de Phone Number [facility] [address] [place] [address], * Magnesium (11/15/2024 6:27 AM EST) Magnesium 2.0 1.9 - 2.6 mg/dL LAB CHEMISTRY METHOD 11/15/2024 8:39 AM [facility] Blood Venous blood specimen / Unknown Venipuncture / Unknown 11/15/2024 6:27 AM EST 11/15/2024 7:04 AM EST Demarcus Villalobos MD LAB BLOOD ORDERABLES Performing Organization Address City/[facility]/ZIP Co de Phone Number [facility] [address] [place] [address], * (ABNORMAL) Basic metabolic panel (11/15/2024 6:27 AM EST) Sodium 139 133 - 145 mmol/L LAB CHEMISTRY METHOD 11/15/2024 8:43 AM [facility] Potassium 3.6 3.5 - 5.5 mmol/L LAB CHEMISTRY METHOD 11/15/2024 8:43 AM [facility] Chloride 108 96 - 110 mmol/L LAB CHEMISTRY METHOD 11/15/2024 8:43 AM [facility] CO2 24 21 - 32 mmol/L LAB CHEMISTRY METHOD 11/15/2024 8:43 AM [facility] Anion Gap 7 3 - 11 LAB CHEMISTRY METHOD 11/15/2024 8:43 AM [facility] Glucose 114(H) 70 - 100 mg/dL LAB CHEMISTRY METHOD 11/15/2024 8:43 AM [facility] BUN 22 5 - 25 mg/dL LAB CHEMISTRY METHOD 11/15/2024 8:43 AM [facility] Creatinine 0.77 0.50 - 1.10 mg/dL LAB CHEMISTRY METHOD 11/15/2024 8:43 AM [facility] LAB eGFR 80 >=60 mL/min/1. 73m2 LAB CHEMISTRY METHOD 11/15/2024 8:43 AM [facility] LAB Comment:Calculation based on the??Chronic Kidney Disease Epidemiology Collaboration (CKD-EPI) equation refit??without adjustment for race. BUN/Creatinine Ratio 28.6 LAB CHEMISTRY METHOD 11/15/2024 8:43 AM [facility] Calcium 8.5 8.5 - 10.5 mg/dL LAB CHEMISTRY METHOD 11/15/2024 8:43 AM [facility] Blood Venous blood specimen / Unknown Venipuncture / Unknown 11/15/2024 6:27 AM EST 11/15/2024 7:04 AM EST Demarcus Villalobos MD LAB BLOOD ORDERABLES [facility] [address] [place] [address], * Activated partial thromboplastin time (11/14/2024 8:37 PM EST) aPTT 32.2 24.1 - 39.3 sec LAB COAGULATION METHOD 11/14/2024 9:02 PM EST [facility] Blood Venous blood specimen / Unknown Venipuncture / Unknown 11/14/2024 8:37 PM EST 11/14/2024 8:49 PM EST Hardik DANIELS LAB BLOOD ORDERABLES [facility] [address] [place] [address], [place] [phone] * Prothrombin time with INR (11/14/2024 8:37 [...] PM EST Hardik DANIELS LAB BLOOD ORDERABLES [facility] [address] [place] [address], * CT Head wo Contrast (11/14/2024 2:27 [...] Signed Date: 11/14/2024 14:51 ET Workstation ID: [id number] Transcribed By: Self Edit Transcribed Date: 11/14/2024 [...] Date: 11/14/2024 14:41 ET Assigned Physician: KYLER BARREAR Reviewed and Electronically Signed By: KYLER BARRERA Signed Date: 11/14/2024 14:51 ET Workstation ID: [id number] Transcribed By: Self Edit Transcribed Date: 11/14/2024 14:41 ET Aleida DANIELS [facility] PROCEDURES * (ABNORMAL) Culture urine (11/14/2024 1:58 PM EST) Culture, Urine >100,000 CFU/mL Escherichia coli ESBL(A) CLINT 11/17/2024 11:51 AM EST [facility] ([facility]) [facility] Comment:THIS ORGANISM IS POS ITIVE [...] - G ENERAL ORDERABLES Performing Organization Address City/[facility]/ZIP Co de Phone Number [facility] [address] [place] [address], * Estrada urine culture tube (11/14/2024 1:58 PM EST) Extra Tube Hold for add-ons. 11/14/2024 4:02 PM EST [facility] LAB Comment:Auto resulted. Urine Urinary bladder structure / Unknown Non-blood Collection / Unknown 11/14/2024 1:58 PM EST 11/14/2024 2:20 PM EST Aleida DANIELS LAB URINE ORDERABLES Performing Organization Address City/[facility]/ZIP Co de Phone Number [facility] [address] [place] [address], [place] [phone] * (ABNORMAL) Urinalysis with reflex microscopic and culture (11/14/2024 1:58 PM EST) Specific Moore Urine 1.021 1.003 - 1.030 LAB URINALYSIS - AUTOMATED METHOD 11/14/2024 2:32 PM [facility] pH, Urine 6.0 5.0 - 8.0 pH LAB URINALYSIS - AUTOMATED METHOD 11/14/2024 2:32 PM [facility] Leukocytes, Urine Small(A) Negative LAB URINALYSIS - AUTOMATED METHOD 11/14/2024 2:32 PM [facility] Nitrite, Urine Negative Negative LAB URINALYSIS - AUTOMATED METHOD 11/14/2024 2:32 PM [facility] Protein, Urine 30(A) <=Trace mg/dL LAB URINALYSIS - AUTOMATED METHOD 11/14/2024 2:32 PM [facility] Glucose, Urine Negative Negative mg/dL LAB URINALYSIS - AUTOMATED METHOD 11/14/2024 2:32 PM [facility] Ketones, Urine Trace(A) Negative mg/dL LAB URINALYSIS - AUTOMATED METHOD 11/14/2024 2:32 PM [facility] Urobilinogen , Urine 1.0 0.2 - 1.0 mg/dL LAB URINALYSIS - AUTOMATED METHOD 11/14/2024 2:32 PM [facility] Bilirubin, Urine Negative Negative LAB URINALYSIS - AUTOMATED METHOD 11/14/2024 2:32 PM [facility] Blood, Urine Moderate(A) Negative LAB URINALYSIS - AUTOMATED METHOD 11/14/2024 2:32 PM [facility] RBC, Urine 9.2(H) 0 - 4 /HPF LAB URINALYSIS - AUTOMATED METHOD 11/14/2024 2:32 PM [facility] WBC, Urine 28.1(H) 0 - 4 /HPF LAB URINALYSIS - AUTOMATED METHOD 11/14/2024 2:32 PM EST [facility] Squamous Epithelial, Urine 37 0 - 60 /LPF LAB URINALYSIS - AUTOMATED METHOD 11/14/2024 2:32 PM EST [facility] Bacteria, Urine Many(A) Negative /HPF LAB URINALYSIS - AUTOMATED METHOD 11/14/2024 2:32 PM EST [facility] Hyaline Casts, Urine 0.8 0 - 3 /LPF LAB URINALYSIS - AUTOMATED METHOD 11/14/2024 2:32 PM EST [facility] Urine Urinary bladder structure / Unknown Non-blood Collection / Unknown 11/14/2024 1:58 PM EST 11/14/2024 2:20 PM EST Aleida DANIELS LAB URINE ORDERABLES Performing Organization Address City/State/[facility] Co de Phone Number [facility] [address] [place] [address], * CT Lower Extremity wo Contrast Left [...] Signed Date: 11/14/2024 12:30 ET Workstation ID: [id number] Transcribed By: Self Edit Transcribed Date: 11/14/2024 [...] Signed Date: 11/14/2024 12:30 ET Workstation ID: [id number] Transcribed By: Self Edit Transcribed Date: 11/14/2024 12:26 ET Aleida DANIELS [facility] CT PROCEDURES * Troponin I high sensitivity (11/14/2024 11:25 AM EST) High Sensitivity Troponin I 10 <=54 ng/L LAB CHEMISTRY METHOD 11/14/2024 12:49 PM EST [facility] Blood Venous blood specimen / Unknown Venipuncture / Unknown 11/14/2024 11:25 AM EST 11/14/2024 11:56 AM EST [facility]ative [facility] - 11/14/2024 12:49 PM EST High levels of biotin in samples may falsely decrease hsTroponin values. ??Use caution when interpreting hsTroponin results in patients taking biotin who exhibit renal impairment (eGFR <60) or in patients taking more than 20 mg/day of biotin. Aleida DANIELS LAB BLOOD ORDERABLES [facility] ([facility]) [facility] [address] [place] [address], * XR Chest 1 View (11/14/2024 11:03 AM EST) Anatomical Region Laterality Modality Body Radiographic Jalyn ging 11/14/2024 11:0 8 AM EST Impressions 11/14/2024 11:08 AM EST No acute findings. -------- FINAL REPORT -------- Dictated By: Vinayak Austin Dictated Date: 11/14/2024 11:08 ET Assigned Physician: Vinayak Austin Reviewed and Electronically Signed By: Vinayak Austin Signed Date: 11/14/2024 11:08 ET Workstation ID: [id number] Transcribed By: Self Edit Transcribed Date: 11/14/2024 [...] Signed Date: 11/14/2024 11:08 ET Workstation ID: [id number] Transcribed By: Self Edit Transcribed Date: 11/14/2024 [...] Signed Date: 11/14/2024 11:08 ET Workstation ID: [id number] Transcribed By: Self Edit Transcribed Date: 11/14/2024 [...] Signed Date: 11/14/2024 11:08 ET Workstation ID: [id number] Transcribed By: Self Edit Transcribed Date: 11/14/2024 [...] Signed Date: 11/14/2024 10:36 ET Workstation ID: [id number] Transcribed By: Self Edit Transcribed Date: 11/14/2024 [...] Signed Date: 11/14/2024 10:36 ET Workstation ID: [id number] Transcribed By: Self Edit Transcribed Date: 11/14/2024 10:30 ET Aleida R Hevey PA IMG CT PROCEDURES * (ABNORMAL) Thyroid stimulating hormone (11/14/2024 9:58 AM EST) Pathologist [facility] TSH 48.69(H) 0.40 - 4.00 mcIU/mL LAB CHEMISTRY METHOD 11/15/2024 6:35 AM EST [facility] Blood Venous blood specimen / Unknown Venipuncture / Unknown 11/14/2024 9:58 AM EST 11/14/2024 10:25 AM EST Demarucs Villalobos MD LAB BLOOD ORDERABLES [facility] [address] [place] [address], * (ABNORMAL) CBC auto differential (11/14/2024 9:58 AM EST) [facility] WBC 11.6(H) 4.8 - 10.8 K/mcL LAB HEMETOLOGY METHOD 11/14/2024 10:32 AM [facility] RBC 4.10 3.80 - 4.80 M/[facility] LAB HEMETOLOGY METHOD 11/14/2024 10:32 AM [facility] Hemoglobin 12.3 11.5 - 16.0 g/dL LAB HEMETOLOGY METHOD 11/14/2024 10:32 AM [facility] Hematocrit 38.2 35.0 - 47.0 % LAB HEMETOLOGY METHOD 11/14/2024 10:32 AM [facility] MCV 94.1 79.0 - 98.0 FL LAB HEMETOLOGY METHOD 11/14/2024 10:32 AM [facility] MCH 30.3 27.0 - 32.0 pcg LAB HEMETOLOGY METHOD 11/14/2024 10:32 AM [facility] MCHC 32.2 32.0 - 37.0 g/dL LAB HEMETOLOGY METHOD 11/14/2024 10:32 AM [facility] RDW 15.2(H) 11.0 - 15.0 % LAB HEMETOLOGY METHOD 11/14/2024 10:32 AM [facility] LAB Platelets 214 130 - 400 K/mcL LAB HEMETOLOGY METHOD 11/14/2024 10:32 AM [facility] LAB MPV 10.4 7.0 - 11.0 [place] LAB HEMETOLOGY METHOD 11/14/2024 10:32 AM [facility] LAB NRBC 0.0 <1.0 % LAB HEMETOLOGY METHOD 11/14/2024 10:32 AM [facility] LAB NRBC Absolute 0.00 <0.10 K/[facility] LAB HEMETOLOGY METHOD 11/14/2024 10:32 AM [facility] LAB Neutrophils Relative 88.1 % LAB HEMETOLOGY METHOD 11/14/2024 10:32 AM [facility] LAB Lymphocytes Relative 4.8 % LAB HEMETOLOGY METHOD 11/14/2024 10:32 AM [facility] [facility] Monocytes Relative 6.4 % LAB HEMETOLOGY METHOD 11/14/2024 10:32 AM [facility] Eosinophils Relative 0.0 % LAB HEMETOLOGY METHOD 11/14/2024 10:32 AM [facility] Basophils Relative 0.1 % LAB HEMETOLOGY METHOD 11/14/2024 10:32 AM [facility] Immature Granulocytes Relative 0.6 % LAB HEMETOLOGY METHOD 11/14/2024 10:32 AM [facility] Neutrophils Absolute 10.24(H) 1.50 - 7.00 K/mcL LAB HEMETOLOGY METHOD 11/14/2024 10:32 AM [facility] Lymphocytes Absolute 0.56(L) 1.00 - 5.00 K/mcL LAB HEMETOLOGY METHOD 11/14/2024 10:32 AM EST [facility] Monocytes Absolute 0.74 0.20 - 1.00 K/mcL LAB HEMETOLOGY METHOD 11/14/2024 10:32 AM EST [facility] Eosinophils Absolute 0.00 0.00 - 0.50 K/mcL LAB HEMETOLOGY METHOD 11/14/2024 10:32 AM EST [facility] Basophils Absolute 0.01 0.00 - 0.20 K/mcL LAB HEMETOLOGY METHOD 11/14/2024 10:32 AM EST [facility] Immature Granulocytes Absolute 0.07(H) 0.00 - 0.03 K/mcL LAB HEMETOLOGY METHOD 11/14/2024 10:32 AM [facility] Blood Venous blood specimen / Unknown Venipuncture / Unknown 11/14/2024 9:58 AM EST 11/14/2024 10:25 AM EST Aleida DANIELS LAB BLOOD ORDERABLES [facility] [address] [place] [address], * (ABNORMAL) Comprehensive metabolic panel (11/14/2024 9:58 AM EST) Sodium 137 133 - 145 mmol/L LAB CHEMISTRY METHOD 11/14/2024 11:56 AM [facility] Potassium 3.6 3.5 - 5.5 mmol/L LAB CHEMISTRY METHOD 11/14/2024 11:56 AM [facility] Chloride 107 96 - 110 mmol/L LAB CHEMISTRY METHOD 11/14/2024 11:56 AM [facility] CO2 25 21 - 32 mmol/L LAB CHEMISTRY METHOD 11/14/2024 11:56 AM [facility] Anion Gap 5 3 - 11 LAB CHEMISTRY METHOD 11/14/2024 11:56 AM [facility] Glucose 130(H) 70 - 100 mg/dL LAB CHEMISTRY METHOD 11/14/2024 11:56 AM [facility] BUN 24 5 - 25 mg/dL LAB CHEMISTRY METHOD 11/14/2024 11:56 AM [facility] Creatinine 0.96 0.50 - 1.10 mg/dL LAB CHEMISTRY METHOD 11/14/2024 11:56 AM [facility] eGFR 61 >=60 mL/min/1. 73m2 LAB CHEMISTRY METHOD 11/14/2024 11:56 AM [facility] Comment:Calculation based on the??Chronic Kidney Disease Epidemiology Collaboration (CKD-EPI) equation refit??without adjustment for race. BUN/Creatinine Ratio 25.0 LAB CHEMISTRY METHOD 11/14/2024 11:56 AM [facility] Calcium 8.9 8.5 - 10.5 mg/dL LAB CHEMISTRY METHOD 11/14/2024 11:56 AM [facility] AST (SGOT) 52(H) 10 - 42 unit/L LAB CHEMISTRY METHOD 11/14/2024 11:56 AM [facility] Comment:Results verified by repeat testing ALT (SGPT) 40 10 - 60 unit/L LAB CHEMISTRY METHOD 11/14/2024 11:56 AM [facility] Comment:Results verified by repeat testing Alkaline Phosphatase 81 42 - 121 unit/L LAB CHEMISTRY METHOD 11/14/2024 11:56 AM [facility] Total Protein 6.8 6.0 - 8.0 g/dL LAB CHEMISTRY METHOD 11/14/2024 11:56 AM [facility] Albumin 3.9 3.2 - 5.0 g/dL LAB CHEMISTRY METHOD 11/14/2024 11:56 AM [facility] Total Bilirubin 1.0 0.0 - 1.4 mg/dL LAB CHEMISTRY METHOD 11/14/2024 11:56 AM [facility] Blood Venous blood specimen / Unknown Venipuncture / Unknown 11/14/2024 9:58 AM EST 11/14/2024 10:25 AM EST Aleida DANIELS LAB BLOOD ORDERABLES Performing Organization Address [facility] Co de Phone Number [facility] [address] [place] [address], * Troponin I high sensitivity (11/14/2024 9:58 AM EST) [facility] High Sensitivity Troponin I 10 <=54 [...] DANIELS LAB BLOOD ORDERABLES Performing Organization Address [facility] de Phone Number [facility] [address] [place] [address], * (ABNORMAL) Creatine kinase (11/14/2024 9:58 AM EST) [facility] Total CK 668(H) 22 - 269 unit/L LAB CHEMISTRY METHOD 11/14/2024 11:20 AM EST [facility] Blood Venous blood specimen / Unknown Venipuncture / Unknown 11/14/2024 9:58 AM EST 11/14/2024 10:25 AM EST Aleida DANIELS LAB BLOOD ORDERABLES Performing Organization Address City/[facility]/ZIP Co de Phone Number [facility] [address] [place] [address], * ECG 12 lead (11/14/2024 9:41 AM EST) Ventricular Rate ECG 80 BPM GEM[facility] Atrial Rate 80 BPM GEMUSE P-R Interval 126 ms GEMUSE QRS Duration 80 ms GEMUSE Q-T Interval 430 ms GEMUSE QTc 495 ms GEMUSE R [place] 31 degrees GEMUSE T [place] -53 degrees GEMUSE ECG Interpretation Normal sinus rhythm Nonspecific T wave abnormality Abnormal ECG No previous ECGs available Confirmed by HELADIO SIMMONS ([id number]) on 11/14/2024 5:33:44 PM GEMUSE 11/14/2024 9:41 AM EST 11/14/2024 5:33 PM EST Román Guzman MD ECG ORDERABLES GEMUSE * SD CRITICAL CARE EACH ADDITIONAL 30 MINUTES, SD CRITICAL CARE EACH ADDITIONAL 30 MINUTES, SD CRITICAL CARE EACH ADDITIONAL 30 MINUTES (11/14/2024 [...] ECG-Annotated (11/14/2024) Provider Onbase MD ECG ORDERABLES documented in this encounter Visit Diagnoses Diagnosis Acute subdural hematoma (CMS/HCC)- Primary Subdural hematoma (CMS/HCC) Subdural hemorrhage Closed fracture of left hip, initial encounter ([facility]) Syncope, unspecified syncope type Hypoxia Hypoxemia Hip fracture requiring operative repair, left, closed, initial encounter (CMS/HCC) Hip fracture requiring operative repair, left, closed, initial encounter ([facility]) documented in this encounter Admitting Diagnoses Diagnosis [...] Daily, First dose on 11/15/24 at 0900 Given 11/26/2024 10:09 AM EST [...] Every 8 hours scheduled, First dose on 11/17/24 at 1530, Recovery & On Unit 0605 (Given - Provider: Amara Zhu RN)1437 (Given - Provider: Yolanda Carson RN)2124 (Given - Provider: Amara Zhu RN) 0622 (Given - Provider: Amara Zhu RN)1438 (Given - Provider: Joseph Arita RN)2144 (Given - Provider: Bridgett Guevara RN) 0558 (Given - Provider: Bridgett Guevara RN)1409 (Given - Provider: Joseph Arita, JAMMIE) amLODIPine (NORVASC) tablet 2.5 mg 2.5 mg, oral, Daily, First dose on 11/17/24 at 0900 0848 (Given - Provider: Yolanda [...] RN)2124 (Given - Provider: Amara Zhu RN) 09 (Given - Provider: Joseph Arita RN)2144 (Given - Provider: Bridgett Guevara RN) 1009 [...] 0848 (Given - Provider: Yolanda Carson RN) 09 (Given - Provider: Joseph Arita RN) 100 (Given - Provider: Joseph Arita RN) LORazepam (ATIVAN) tablet 0.5 mg (COMPLETED) 0.5 mg, oral, Once, On Sun11/26/24 at 0300, For 1 dose 0244 (Given - Provider: Bridgett Guevara, JAMMIE) melatonin tablet 3 mg 3 mg, oral, Nightly, First dose on Sun11/16/24 at 2200 2124 (Given - Provider: Amara Zhu RN) 2143 (Given - Provider: Bridgett Guevara RN) 2100 (Canceled Entry - Provider: Automatic Discharge Provider - Comment: Automatically canceled at discontinue of medication order) multivitamin tablet 1 tablet 1 tablet, oral, Daily, First dose on 11/15/25 at 0900 0848 (Given - Provider: Yolanda Carson, JAMMIE) 0919 (Given - Provider: Joseph Arita, JAMMIE) 1009 (Given - Provider: Joseph Arita RN) pantoprazole (PROTONIX) EC tablet 40 mg 40 mg, oral, Every morning before breakfast, First dose on Sun11/17/24 at 1145, Do not crush, chew, or split. 0605 (Given - Provider: Amara Zhu RN) 0622 (Given - Provider: Amara Zhu, JAMMIE) 0612 (Given - Provider: Bridgett Guevara, JAMMIE) polyethylene glycol (MIRALAX) packet 17 g 17 g, oral, Daily, First dose on Sun11/14/24 at 1257, Bowel Regimen - for prevention of constipation 0849 (Given - Provider: Yolanda Carson, JAMMIE) 0920 (Given - Provider: Joseph Arita RN) 1010 (Given - Provider: Joseph Arita RN) senna-docusate (PERICOLACE) 8.6-50 mg per tablet 2 tablet 2 tablet, oral, Nightly, First dose on Sun11/17/24 at 2100, Recovery & On Unit 4 (Given - Provider: Amara Zhu RN) 214 (Given - Provider: Bridgett Guevara RN) 2100 (Canceled Entry - Provider: Automatic Discharge Provider - Comment: Automatically canceled at discontinue of medication order) sodium chloride 0.9 % flush 10 mL(Linked Group 1) 10 mL, intravenous, 2 times daily, First dose on Sun11/14/24 at 1257 0849 (Given - Provider: Yolanda Carson, JAMMIE)2129 (Given - Provider: Amara Zhu RN) 0920 (Given - Provider: Joseph Arita RN)2153 (Given - Provider: Bridgett Guevara RN) 1012 (Given - Provider: Joseph Arita RN)2100 (Canceled [...] Ordered Date OXYGEN THERAPY, ADULT 1 11/17/2024 PRINCIPAL CLERK TYPIST Count Last Ordered Date First Orde red Date PRINCIPAL CLERK TYPIST SWALLOW EVAL AND TREAT 1 11/14/2024 IV [...] documented as of this encounter Care Teams Clothes Wringer Relationship Specialty Start Date End Date Garcia Doran MD [address] [place] [id number] PCP - General Internal Medicine 01/11/22 documented as of this encounter
--- OUTSIDE RECORDS SUMMARY | 2024-12-01 06:26 | XMS_ITS | Encounter Summary ---
Author Organization [facility] Address [address] [place] [address] Care Team Providers Care Medical Payment Poster Name Role Phone Garcia Doran MD Primary Care Provider [phone] Reason for Visit * Reason Comments Fall Altered Mental Status * Auth/Cert Specialty Diagnoses / Procedures Referred By Contgildardo t Referred To Contact Diagnoses Acute subdural hematoma (CMS/HCC) Procedures . Demarcus Villalobos MD [address] [place] [phone] [facility] Emergency [address] [place] [address] Referral ID Status Reason Start Date Expiration Date Visits Re quested Visits Authorized [id number] 1 1 Encounter Details Date Type Department Care Team (Late st Contact Info) Description 11/14/2024 9:22 AM EST - 11/26/2024 7:07 PM [facility] Hospital Encounter [facility] Medical Surgical Unit [address] [place] [address] Román Guzman MD [address] [id number] Demarcus Villalobos MD [address] [place] [phone] Joel Subramanian DO [address] [place] [address] Bhavin Garcia MD [address] [place] [phone] Saundra Bucio MD [address] [place] [phone] Trace Burris MD [address] [place] [address] Subdural hematoma (CMS/HCC) (Primary Dx); Closed fracture of left hip, initial encounter (CMS/HCC); Syncope, unspecified syncope type; Hypoxia; Hip fracture requiring operative repair, left, closed, initial encounter (CMS/HCC) Discharge Disposition: Assisted Facility Social History Tobacco Use Types Packs/Day [...] your loved ones. For example, child caregiver private home or elderly care for an older adult? [...] Discharge Diagnosis: Left hip fracture Discharge Disposition Assisted Facility Code Status at Discharge: Prior Hospital Course Summary Presenting Problem/History of Present Illness Subdural hematoma (CMS/HCC) [S06.5XAA] Acute subdural hematoma (CMS/HCC) [S06.5XAA] Closed fracture of left hip, initial encounter ([facility]) [S72.002A] Chief Complaint Patient presents with Fall Altered Mental Status HPI 79-year-old former smoker woman with past medical history significant for hypertension, dyslipidemia, hypothyroidism, osteopenia, depression and anxiety was brought to [facility] ED after her found her around [...] coronal images of brain were obtained. Scanner: CultureAlley 64 slice VCT Dose reduction technique: ASIR [...] AndanalSigned Date: 11/15/2024 08:30 ET Workstation ID: [id number] Transcribed By: Self Edit Transcribed Date: 11/15/2024 [...] Signed Date: 11/14/2024 14:51 ET Workstation ID: [id number] Transcribed By: Self Edit Transcribed Date: 11/14/2024 [...] Signed Date: 11/14/2024 12:30 ET Workstation ID: [id number] Transcribed By: Self Edit Transcribed Date: 11/14/2024 [...] Signed Date: 11/14/2024 11:08 ET Workstation ID: [id number] Transcribed By: Self Edit Transcribed Date: 11/14/2024 [...] Signed Date: 11/14/2024 11:08 ET Workstation ID: [id number] Transcribed By: Self Edit Transcribed Date: 11/14/2024 [...] Signed Date: 11/14/2024 10:36 ET Workstation ID: [id number] Transcribed By: Self Edit Transcribed Date: 11/14/2024 [...] mg per tablet Follow-Up Instructions and Recommendations [address] [address] No discharge procedures on file. There are no outpatient Patient Instructions on file for this admission. Outpatient Follow-Up Future Appointments Date Time Provider Department Center 12/05/2024 10:[address] [place] [facility] 12/05/2024 11:15 AM FRANCES Bee [facility] None 03/06/2025 11:30 AM Garcia Doran [...] Dr. Hester - Follow up with [facility] in 2 weeks. If [...] follow up appointment. - Please call [facility] with any questions or concerns. [facility] [address] [place] [address] documented in this encounter Medications at Time [...] Disposition Code Departure Means Destination Comment s Assisted Facility Ambulance documented in this encounter Progress [...] onward) Start Ordered 11/17/24 1503 Adult diet [facility]; Modified Consistency Options for Liquidsand Solids, General; Regular; IDDSI Level 7 Easy to Chew (Order Panel) Diet effective now Question Answer Comment Location [facility] Diet Type (req) Modified Consistency Options for [...] seen for follow up- noted after visit, medical case worker note stating that pt discharging to shelter facility at 6 pm today. Pt reports good intake/appetite. States she is having at least half of meals. protective services officer indicates pt consume 100% of meals on [...] 1627 Initial Transition Plan Initial Transition Plan Assisted Facility Transportation Transportation at discharge [facility] providing transportation Amanuel What day is the transport expected? 11/26/24 What time is the transport expected? 1800 Final Discharge Disposition Assisted Facility ([facility]) [facility] spoke to Fredy and daughter Yvoana and updated them on transfer * Bridgette Zelaya - 11/26/2024 1:10 PM EST [facility] Physical Therapy Treatment PT Discharge Recommendations: Inpatient rehab facility placement, [facility] facility placement Equipment Recommended: walker Staff Recommendations [...] is a 79 y.o. female admitted to [facility] on 11/14/2024 with: Patient Active Problem List Diagnosis Anxiety Depression HTN (hypertension) Hyperlipidemia Hypothyroidism Osteopenia Osteoporosis Closed fracture of left hip (CMS/HCC) Acute subdural hematoma ([facility]) Fall prevention education provided including use of [...] day PT Discharge Recommendations Inpatient rehab facility placement;[facility] facility placement Equipment Recommended walker Barriers to [...] PT Discharge Recommendations: Inpatient rehab facility placement, [facility] facility placement Equipment Recommended: walker Barriers to [...] from the original note were not included. [place] PROGRESS NOTE Date: 11/26/2024 Author: Trace Burris MD Patient ID: Isabela Rios is a 79 y.o. female : 1945 MR#: [id number] ASSESSMENT & PLAN Assessment/Plan Principal Problem: Acute [...] Signed Date: 11/21/2024 08:46 ET Workstation ID: [id number] Transcribed By: Self Edit Transcribed Date: 11/21/2024 [...] from the original note were not included. [place] PROGRESS NOTE Date: 11/25/2024 Author: Trace Burris MD Patient ID: Isabela Rios is a 79 y.o. female : 1945 MR#: [id number] ASSESSMENT & PLAN Assessment/Plan Principal Problem: Acute subdural hematoma (CMS/HCC) Active Problems: Closed fracture of left hip ([facility]) Isabela Rios is a 79 y.o. female [...] Signed Date: 11/21/2024 08:46 ET Workstation ID: [id number] Transcribed By: Self Edit Transcribed Date: 11/21/2024 [...] Ruelas RN - 11/24/2024 4:02 PM EST [facility] received a message from [facility] is offering peer to peer prior to determination. Deadline is 10:30 am 11/25/24. Please have provider call [phone] option 5. thanks Message forwarded to [facility] unit manager convenience storesMD and [employer]. Daughter Yovana updated * Yolanda Carson RN [...] continueto monitor. DC order entered. * Bridgette Martinezjeaniearmando - 11/24/2024 11:31 AM EST [facility] Physical Therapy Treatment PT Discharge Recommendations: Inpatient rehab facility placement, [facility] facility placement Equipment Recommended: walker Staff Recommendations [...] is a 79 y.o. female admitted to [facility] on 11/14/2024 with: Patient Active Problem List Diagnosis Anxiety Depression HTN (hypertension) Hyperlipidemia Hypothyroidism Osteopenia Osteoporosis Hip fracture requiring operative repair, left, closed, initial encounter ([facility]) Acute subdural hematoma ([facility]) Fall prevention education provided including use of [...] day PT Discharge Recommendations Inpatient rehab facility placement;[facility] facility placement Equipment Recommended walker Barriers to [...] treatment well Comments: pt was I at [facility]; feel she is a good candidate for acute rehab Medical Staff Made Aware: Yes Plan Treatment/Interventions: LE strengthening/ROM, Gait training, Endurance training PT Plan: Skilled PT PT Frequency: 2-5 days per week PT Duration of Sessions: 15-30 min per session PT Treatments per day: 1 time per day PT Discharge Recommendations: Inpatient rehab facility placement, [facility] facility placement Equipment Recommended: walker Barriers to [...] a 79 y.o. female : 1945 MR#: [id number] SUBJECTIVE CC: Here after fall resulting in [...] Signed Date: 11/21/2024 08:46 ET Workstation ID: [id number] Transcribed By: Self Edit Transcribed Date: 11/21/2024 [...] Rachel Bernard and Tucker. Rachel Bernard at [phone] - I met her at the bedside [...] a 79 y.o. female : 1945 MR#: [id number] SUBJECTIVE CC: Here after fall resulting in [...] Signed Date: 11/21/2024 08:46 ET Workstation ID: [id number] Transcribed By: Self Edit Transcribed Date: 11/21/2024 [...] and Tucker. I called Rachel Bernard at [phone] and left the message. * Kayla Roque [...] Flowers, PT - 11/22/2024 10:13 AM EST [facility] Physical Therapy Treatment PT Discharge Recommendations: [facility] facility placement, Inpatient rehab facility placement Equipment [...] is a 79 y.o. female admitted to [facility] on 11/14/2024 with: Patient Active Problem List Diagnosis Anxiety Depression HTN (hypertension) Hyperlipidemia Hypothyroidism Osteopenia Osteoporosis Hip fracture requiring operative repair, left, closed, initial encounter ([facility]) Acute subdural hematoma ([facility]) Fall prevention education provided including use of [...] 1 time per day PT Discharge Recommendations [facility] facility placement;Inpatient rehab facility placement PT - [...] treatment well Comments: pt was I at [facility]; feel she is a good candidate for acute rehab Medical Staff Made Aware: Yes Plan Treatment/Interventions: LE strengthening/ROM, Endurance training, Gait training PT Plan: Skilled PT PT Frequency: 2-5 days per week PT Duration of Sessions: 15-30 min per session PT Treatments per day: 1 time per day PT Discharge Recommendations: [facility] facility placement, Inpatient rehab facility placement Equipment [...] Outcomes Date/Time User Outcome 11/22/24 1010 Evangelina Lionel, PT Progressing Encounter Problems (Resolved) Template: Physical [...] Outcomes Date/Time User Outcome 11/21/24 1052 Bridgette Velásquezarmando Completed Goal: Patient will transfer sit<>stand safely , min assist (Resolved) Dates: Start: 11/19/24 Expected End: 11/24/24 Resolved: 11/20/24 Outcomes Date/Time User Outcome 11/20/24 1325 Bridgette Martinezsumeet Completed Education Documentation Precautions, taught by Evangelina Flowers, PT at 11/22/2024 [...] comments found. Evangelina Flowers PT * Kathleen Martins OT - 11/22/2024 9:00 AM EST [facility] Occupational Therapy Treatment Note DATE: Friday November 22, 2024 TIME IN: 0900 TIME OUT: 0945 Pt: Isabela Rios 529/529-2 DISCHARGE RECS: [facility] facility placement, Inpatient rehab facility placement EQUIPMENT RECS: Walker-rolling (political anthropologist, sock aid) SAFE PT HANDLING REC FOR [...] - Evaluation Status Complete OT Discharge Recommendations [facility] facility placement;Inpatient rehab facility placement Equipment Recommended Walker-rolling (political anthropologist, sock aid) ADDITIONAL COMMENTS: Chart reviewed. RN [...] onward) Start Ordered 11/17/24 1503 Adult diet [facility]; Modified Consistency Options for Liquidsand Solids, General; Regular; IDDSI Level 7 Easy to Chew (Order Panel) Diet effective now Question Answer Comment Location [facility] Diet Type (req) Modified Consistency Options for [...] (increased her walking, cut back ). Appetite DIRECTOR PUBLIC SERVICE: Good Intake DIRECTOR PUBLIC SERVICE: Stable Vitamins/Minerals/Herbs: one a day type multivitamin [...] a 79 y.o. female : 1945 MR#: [id number] SUBJECTIVE CC: Here after fall resulting in [...] Signed Date: 11/21/2024 08:46 ET Workstation ID: [id number] Transcribed By: Self Edit Transcribed Date: 11/21/2024 [...] -daughter Rachel Bernard and Tucker. * Bridgette Garcia - 11/21/2024 10:54 AM EST [facility] Physical Therapy Treatment PT Discharge Recommendations: Inpatient rehab facility placement, [facility] facility placement Equipment Recommended: walker Staff Recommendations [...] is a 79 y.o. female admitted to [facility] on 11/14/2024 with: Patient Active Problem List Diagnosis Anxiety Depression HTN (hypertension) Hyperlipidemia Hypothyroidism Osteopenia Osteoporosis Hip fracture requiring operative repair, left, closed, initial encounter ([facility]) Acute subdural hematoma ([facility]) Fall prevention education provided including use of [...] day PT Discharge Recommendations Inpatient rehab facility placement;[facility] facility placement Equipment Recommended walker Barriers to [...] treatment well Comments: pt was I at [facility]; feel she is a good candidate for acute rehab Medical Staff Made Aware: Yes Plan Treatment/Interventions: LE strengthening/ROM, Endurance training, Gait training PT Plan: Skilled PT PT Frequency: 7 days per week PT Duration of Sessions: 15-30 min per session PT Treatments per day: 1 time per day PT Discharge Recommendations: Inpatient rehab facility placement, [facility] facility placement Equipment Recommended: walker Barriers to [...] over left periorbital region Oriented to person, [facility], Oct 2024. Respirations unlabored and heart had [...] Martins, OT - 11/21/2024 9:30 AM EST [facility] Occupational Therapy Treatment Note DATE: Thursday November 21, 2024 TIME IN: 0930 TIME OUT: 1010 Pt: Isabela Rios 529/529-2 DISCHARGE RECS: [facility] facility placement, Inpatient rehab facility placement EQUIPMENT RECS: Walker-rolling (political anthropologist) SAFE PT HANDLING REC FOR STAFF: 1 [...] - Evaluation Status Complete OT Discharge Recommendations [facility] facility placement;Inpatient rehab facility placement Equipment Recommended Walker-rolling (political anthropologist) ADDITIONAL COMMENTS: Chart reviewed. RN clears pt [...] Normal affect, good eye contact ASSESSMENT/PLAN Isabela iRos is a 79 y.o. female with a [...] Orthopedic team. No acute findings. Tissue exam: [id number] Order: [id number] Collected 11/17/2024 13:17 Status: Final result Visible [...] with some hemorrhage around the margin. A utility sales representative section is submitted in one cassette following decalcification, one piece [facility] Disclaimer Unless otherwise specified, all tissue is 10% NB formalin fixed and paraffin embedded. Resulting Agency [facility] Collection Information Specimen ID: [id number] Bone Bone Collected: 11/17/2024 1317 EST ELVA HESTER Received: 11/17/2024 1555 EST Resulting Agency: [facility] [address] [place] [id number] * Magnolia Lincoln OT - 11/20/2024 3:42 [...] chair with back Prior Function Level of [place] Independent with mobility and functional transfers Indoor [...] Entry OT Evaluation (Low) Time Entry 35 [facility] Occupational Therapy Evaluation DATE: October TIME IN: [...] is a 79 y.o. female admitted to [facility] on 11/14/2024. Occupational Therapy evaluation and treatment ordered to assess ADL independence, safety, and functional mobility for discharge planning. Patient Active Problem List Diagnosis Anxiety Depression HTN (hypertension) Hyperlipidemia Hypothyroidism Osteopenia Osteoporosis Hip fracture requiring operative repair, left, closed, initial encounter ([facility]) Acute subdural hematoma ([facility]) Past Medical History: Diagnosis Date Anxiety 06/11/2017 [...] chair with back Prior Function Level of [place] Independent with mobility and functional transfers Indoor [...] a 79 y.o. female : 1945 MR#: [id number] SUBJECTIVE CC: Here after fall resulting in [...] Signed Date: 11/18/2024 14:33 ET Workstation ID: [id number] Transcribed By: Self Edit Transcribed Date: 11/18/2024 [...] Signed Date: 11/18/2024 06:58 ET Workstation ID: [id number] Transcribed By: Self Edit Transcribed Date: 11/18/2024 [...] Bernard and Tucker. * Bridgette Martinezjettroxy - 11/20/2024 1:27 PM EST [facility] Physical Therapy Treatment PT Discharge Recommendations: Inpatient [...] is a 79 y.o. female admitted to [facility] on 11/14/2024 with: Patient Active Problem List Diagnosis Anxiety Depression HTN (hypertension) Hyperlipidemia Hypothyroidism Osteopenia Osteoporosis Hip fracture requiring operative repair, left, closed, initial encounter (CMS/HCC) Acute subdural hematoma ([facility]) Fall prevention education provided including use of [...] treatment well Comments: pt was I at [facility]; feel she is a good candidate for [...] y.o. Sex: female Acute subdural hematoma (CMS/HCC) [facility] Physical Therapy Treatment Ambulation: Walking Assistance: Moderate assistance Walking Deficit: Steadying, Verbal cueing, Supervision/safety awareness, Increased time to complete, Assist for foot placement, Assist for trunk control, Assist for weight shifting, Limited endurance, Impaired balance, LE weakness Device: Rolling walker Distance Ambulated (ft): (P) 2 PLOF: Level of [place]: Independent with mobility and functional transfers Lives [...] treatment well Comments pt was I at [facility]; feel she is a good candidate for acute rehab Medical Staff Made Aware Yes Plan PT Discharge Recommendations Inpatient rehab facility placement;[facility] facility placement PLAN Acute Care Plan: PT Plan: Skilled PT PT Frequency: Other (Comment) (BID) PT Discharge Recommendations: (P) Inpatient rehab facility placement, [facility] facility placement Equipment Recommended: rwalker Time Spent: [...] information regarding safety precautions, taught by Cecelia Perez, PT at 11/19/2024 9:09 AM. Learner: Patient Readiness: Acceptance Method: Explanation Response: Verbalizes Understanding Comment: advised to use call burris for all needsrecommend str Teach proper use of assistive devices, taught by Cecelia Perez, PT at 11/19/2024 9:09 AM. Learner: Patient [...] a 79 y.o. female : 1945 MR#: [id number] SUBJECTIVE CC: Here after fall resulting in [...] Signed Date: 11/18/2024 14:33 ET Workstation ID: [id number] Transcribed By: Self Edit Transcribed Date: 11/18/2024 [...] Signed Date: 11/18/2024 06:58 ET Workstation ID: [id number] Transcribed By: Self Edit Transcribed Date: 11/18/2024 [...] management and this was conveyed to our medical case worker. * FRANCES Herrera - 11/19/2024 10:04 AM [...] Signed Date: 11/18/2024 14:33 ET Workstation ID: [id number] Transcribed By: Self Edit Transcribed Date: 11/18/2024 [...] Signed Date: 11/18/2024 06:58 ET Workstation ID: [id number] Transcribed By: Self Edit Transcribed Date: 11/18/2024 [...] Patient is alert and oriented to person, [facility] , and year. Cranial Nerves: No [...] Orthopedics and Dr. Yeboah from Neurosurgery at [place]. Patient is neurologically stable. Will continue to [...] oral regimen. She has been monitored in [facility] due to SDH. Discussed [...] heparin. This will be communicated to both [place] and neurosurgery teams. I anticipate we will [...] Signed Date: 11/18/2024 14:33 ET Workstation ID: [id number] Transcribed By: Self Edit Transcribed Date: 11/18/2024 [...] change in her neurologic examination. * Cecelia Perez, PT - 11/18/2024 3:05 PM EST Patient: Isabela Rios Age: 79 y.o. Sex: female Acute subdural hematoma (CMS/HCC) [facility] Physical Therapy Evaluation PLOF: Level of [place]: Independent with mobility and functional transfers Lives With: Spouse Type of Home: House Home Access: Stairs to enter with rails DME Needs: rwalker PT Discharge Recommendation: [facility] facility placement Reason for current recommendation based [...] of Steps 2 Prior Function Level of [place] Independent with mobility and functional transfers Indoor [...] Frequency Other (Comment) (BID) PT Discharge Recommendations [facility] facility placement Equipment Recommended monae PT - Evaluation Status Complete PT Evaluation Time Entry PT Evaluation (Moderate) Time Entry 53 PLAN Acute Care Plan: PT Plan: Skilled PT PT Frequency: Other (Comment) (BID) PT Discharge Recommendations: [facility] facility placement Equipment Recommended: monae Encounter Problems [...] a 79 y.o. female : 1945 MR#: [id number] SUBJECTIVE CC: Here after fall resulting in [...] Signed Date: 11/18/2024 06:58 ET Workstation ID: [id number] Transcribed By: Self Edit Transcribed Date: 11/18/2024 [...] oral regimen. She ahs been monitored in [facility] due to SDH. Seen [...] a 79 y.o. female : 1945 MR#: [id number] SUBJECTIVE CC: Here after fall resulting in [...] at home and confirmed this, it is tomk-fii-hiaayti medication. Some abdominal discomfort was reported, mid [...] obtained following IV 90 mL Isovue-370. Scanner: CultureAlley 64 slice VCT Dose reduction technique: ASIR [...] Signed Date: 11/16/2024 10:45 ET Workstation ID: [id number] Transcribed By: Self Edit Transcribed Date: 11/16/2024 [...] Signed Date: 11/16/2024 07:11 ET Workstation ID: [id number] Transcribed By: Self Edit Transcribed Date: 11/16/2024 [...] Ordered 11/17/24 0001 Adult NPO diet Location: [facility]; Diet: NPO- Except for Medications Diet effective midnight Question Answer Comment Location [facility] Diet NPO- Except for Medications 11/16/24 0815 History of presenting illness: Patient is a [...] (increased her walking, cut back ). Appetite DIRECTOR PUBLIC SERVICE: Good Intake DIRECTOR PUBLIC SERVICE: Stable Vitamins/Minerals/Herbs: one a day type multivitamin [...] a 79 y.o. female : 1945 MR#: [id number] SUBJECTIVE Follow up: SDH, L hip fx, [...] alert, some word finding difficulties. Place: [facility] Knows year. Month November Neurological: No localizing weakness. [...] obtained following IV 90 mL Isovue-370. Scanner: CultureAlley 64 slice VCT Dose reduction technique: ASIR [...] Signed Date: 11/16/2024 10:45 ET Workstation ID: [id number] Transcribed By: Self Edit Transcribed Date: 11/16/2024 [...] Signed Date: 11/16/2024 07:11 ET Workstation ID: [id number] Transcribed By: Self Edit Transcribed Date: 11/16/2024 [...] repair tomorrow S/p Fall Reported hx falls DIRECTOR PUBLIC SERVICE. Etiology? Acute encephalopathy Dysarthria Cognitive decline Suspect [...] 10:45 AM EST Patient returned from CT, claim review medical director placed. * Ruth Ibrahim RN - 11/16/2024 7:[address] to place patient on claim review medical director, pt continuing to remove. * Petar Catherine [...] 4:23 AM EST Patient continuing to remove claim review medical director every time it is replaced. * Petar [...] let patient get rest and defer putting claim review medical director back on until 4am when vitals are [...] up Transition Plan Back up Transition plan Assisted Facility Discharge Planning Contact (Name, Phone #, Relationship) for DC Planning Tucker Rios spouse [phone] Living Arrangements Spouse/significant other Type of Residence Private residence Support Systems Children Medication Coverage Has Med Coverage Under Insurance Plan Yes Anticipated Discharge Needs DME Needs Front wheeled walker Discipline following for SNF placement Continuous Improvement Coach Informed Choice Informed Choice Given? Yes Initial Assessment Notices: Patient choice given. VAL: Unable to determine Barriers to progression of care/discharge: Sitter; left hip surgery 11/16/2023; s/p fall with subdural hematoma; pain management; PT evaluation Plan Dispo: In order of preference: [facility]/[address] [place] [address] Referral/Auth status: Placed 11/16 pending Support Persons and Availability: Lives with spouse; supportive daughter lives in [place] Transportation: Ambulance vs stretcher Current/Prior Services/DME: Used no DME Home/Living situation: One level with two steps to entry /[place] status: No If DC to home, readily able to access: Yes Readmission: No Therapy Eval: Pending Covid Vacc: Yes Last BM: ? HCP: No...confused 11/16/2023 Pharmacy: [place], [place] * FRANCES Herrera - 11/15/2024 1:27 [...] and coronal images of brainwere obtained. Scanner: CultureAlley 64 slice VCT Dose reduction technique: ASIR [...] Signed Date: 11/15/2024 08:30 ET Workstation ID: [id number] Transcribed By: Self Edit Transcribed Date: 11/15/2024 [...] a 79 y.o. female : 1945 MR#: [id number] SUBJECTIVE Follow up: SDH, L hip fx, [...] and coronal images of brainwere obtained. Scanner: CultureAlley 64 slice VCT Dose reduction technique: ASIR [...] Signed Date: 11/15/2024 08:30 ET Workstation ID: [id number] Transcribed By: Self Edit Transcribed Date: 11/15/2024 [...] note were not included. Speech Language Pathology [facility] PATENT ENGINEER BEDSIDE SWALLOW EVALUATION NAME: Isabela Rios DATE OF : 1945 ROOM: [address] [place] [address] PATENT ENGINEER Received On: 11/15/24 Order Analyst Required: No TIME IN: 1115 TIME OUT: [...] fracture of left hip, initial encounter (CMS/HCC) [S72.002A] No admission procedures for hospital encounter. [...] and coronal images of brainwere obtained. Scanner: CultureAlley 64 slice VCT Dose reduction technique: ASIR [...] Signed Date: 11/15/2024 08:30 ET Workstation ID: [id number] Transcribed By: Self Edit Transcribed Date: 11/15/2024 [...] Signed Date: 11/14/2024 11:08 ET Workstation ID: [id number] Transcribed By: Self Edit Transcribed Date: 11/14/2024 [...] Medication Administration: One pill at a time PATENT ENGINEER ASSESSMENT: PATENT ENGINEER Assessment Results: At baseline, Within functional limits Dysphagia Diagnosis: Within Functional Limits Evaluation/Treatment Tolerance: Patient tolerated treatment well Medical Staff Made Aware: Yes Comments: Disucessed w/ RN and message sent to MD CURRENT DIET: Dietary Orders (From admission, onward) Start Ordered 11/16/24 0001 Adult NPO diet Location: [facility]; Diet: NPO- Except for Medications Diet effective now Question Answer Comment Location [facility] Diet NPO- Except for Medications 11/14/24 1442 11/16/24 0001 Adult NPO diet Location: [facility]; Diet: NPO- Except for Medications Diet effective midnight Question Answer Comment Location [facility] Diet NPO- Except for Medications 11/15/24 1036 11/15/24 1236 Adult diet [facility]; General, Modified Consistency Options for Liquids and Solids; Regular; IDDSI Level 7 Easy to Chew Diet effective now Question Answer Comment Location [facility] Diet Type (req) General Diet Type (req) Modified Consistency Options for Liquids and Solids General Diet Regular Modified Consistency Options for Liquids and Solids IDDSI Level 7 Easy to Chew 11/15/24 1235 PLAN OF CARE PATENT ENGINEER PLAN PATENT ENGINEER Plan: No skilled PATENT ENGINEER No Skilled PATENT ENGINEER: Independent with swallowing PATENT ENGINEER - Evaluation Status: Complete PATENT ENGINEER Discharge Recommendations: Home independent Diet Recommendations: IDDSI 7/0, regular and thin liquids DISCHARGE RECOMMENDATIONS No Speech-Language Pathology (PATENT ENGINEER) services/needs at next level of care. EDUCATION [...] EST I attest that I, Kathleen Delacruz M.S.,CCC-PATENT ENGINEER, was physically involved in the ongoing assessment, [...] Procedure Abnormality Status --------- ------ CBC auto differential[[id number]] Abnormal Final result Please view results for these tests on the individual orders. URINALYSIS WITH REFLEX MICROSCOPIC AND CULTURE Narrative: The following orders were created for panel order Urinalysis with reflex microscopic and culture. Procedure Abnormality Status --------- ------ Urinalysis with reflex ...[[id number]] Estrada urine culture tube[[id number]] Please view results for these tests on [...] Signed Date: 11/14/2024 11:08 ET Workstation ID: [id number] Transcribed By: Self Edit Transcribed Date: 11/14/2024 11:05 ET XR Chest 1 View Final Result No acute findings. -------- FINAL REPORT -------- Dictated By: Vinayak Austin Dictated Date: 11/14/2024 11:08 ET Assigned Physician: Vinayak Austin Reviewed and Electronically Signed By: Vinayak Austin Signed Date: 11/14/2024 11:08 ET Workstation ID: [id number] Transcribed By: Self Edit Transcribed Date: 11/14/2024 11:[address] Head wo Contrast Final Result 8 mm subdural hematoma along the right convexity. -------- FINAL REPORT -------- Dictated By: Vinayak Austin Dictated Date: 11/14/2024 10:30 ET Assigned Physician: Vinayak Austin Reviewed and Electronically Signed By: Vinayak Austin Signed Date: 11/14/2024 10:36 ET Workstation ID: [id number] Transcribed By: Self Edit Transcribed Date: 11/14/2024 [...] Closed fracture of left hip, initial encounter (CMS/[facility], [facility]) Differential to include ICH, concussion, contusion, left [...] Prescriptions None Physician Attestation FRANCES George 11/14/24 0511 This is a split/shared visit with FRANCES [...] Please contact author [Demarcus Villalobos MD] via [employer]. Patient: Isabela Rios Admission Date/Time: 11/14/2024 9:22 AM : 1945 [79 y.o.] Patient's PCP: Garcia Doran MD Attending Provider: Román Guzman MD;Ca* CHIEF COMPLAINT Found on the floor HISTORY OF PRESENT ILLNESS This is s 79-year-old former smoker woman with past medical history significant for hypertension, dyslipidemia, hypothyroidism, osteopenia, depression and anxiety was brought to [facility] ED after her found her around [...] Signed Date: 11/14/2024 14:51 ET Workstation ID: [id number] Transcribed By: Self Edit Transcribed Date: 11/14/2024 14:[address] Lower Extremity wo Contrast Left Final Result Impacted and angulated left femoral neck fracture -------- FINAL REPORT -------- Dictated By: KYLER BARRERA Dictated Date: 11/14/2024 12:26 ET Assigned Physician: KYLER BARRERA Reviewed and Electronically Signed By: KYLER BARRERA Signed Date: 11/14/2024 12:30 ET Workstation ID: [id number] Transcribed By: Self Edit Transcribed Date: 11/14/2024 12:26 ET XR Hip 2-3 Views Left Final Result Acute transcervical femoral neck fracture. -------- FINAL REPORT -------- Dictated By: Vinayak Austin Dictated Date: 11/14/2024 11:05 ET Assigned Physician: Vinayak Austin Reviewed and Electronically Signed By: Vinayak Austin Signed Date: 11/14/2024 11:08 ET Workstation ID: [id number] Transcribed By: Self Edit Transcribed Date: 11/14/2024 11:05 ET XR Chest 1 View Final Result No acute findings. -------- FINAL REPORT -------- Dictated By: Vinayak Austin Dictated Date: 11/14/2024 11:08 ET Assigned Physician: Vinayak Austin Reviewed and Electronically Signed By: Vinayak Austin Signed Date: 11/14/2024 11:08 ET Workstation ID: [id number] Transcribed By: Self Edit Transcribed Date: 11/14/2024 11:[address] Head wo Contrast Final Result 8 mm subdural hematoma along the right convexity. -------- FINAL REPORT -------- Dictated By: Vinayak Austin Dictated Date: 11/14/2024 10:30 ET Assigned Physician: Vinayak Austin Reviewed and Electronically Signed By: Vinayak Austin Signed Date: 11/14/2024 10:36 ET Workstation ID: [id number] Transcribed By: Self Edit Transcribed Date: 11/14/2024 [...] sedatives at this point Will get constant pca assisted living May use soft restraints, too 5. Dysarthria [...] reconciliation Health Care proxy: Tucker Rios (): [phone] documented in this encounter Procedure Notes * [...] approach, cemented) Surgeon: SAIMA Hester MD assistant manager quality management: Juan Luis Larsen MD Anesthesia: GETA Anesthesiologist: [...] the position and minimize likelihoodof varus alignment [place] canal was broached with sequential sizes Size [...] awake and alert. She was oriented to banner, [facility], and the year 2024. She could [...] This Visit None Visit Diagnoses Subdural hematoma (CMS/HCC) - Primary Closed fracture of left hip, initial encounter (CMS/[facility], [facility]) Thank you for allowing us to care for your patient. FRANCES Herrera on 11/14/2024 at 7:17 PM EST CC: No ref. provider found Garcia Doran MD [facility] [place] * FRANCES Arnold - 11/14/2024 2:50 PM [...] Signed Date: 11/14/2024 12:30 ET Workstation ID: [id number] Transcribed By: Self Edit Transcribed Date: 11/14/2024 [...] Signed Date: 11/14/2024 11:08 ET Workstation ID: [id number] Transcribed By: Self Edit Transcribed Date: 11/14/2024 [...] Signed Date: 11/14/2024 11:08 ET Workstation ID: [id number] Transcribed By: Self Edit Transcribed Date: 11/14/2024 [...] Signed Date: 11/14/2024 10:36 ET Workstation ID: [id number] Transcribed By: Self Edit Transcribed Date: 11/14/2024 [...] 80 Q-T Interval 430 QTc 495 R [place] 31 T [place] -53 ECG Interpretation Normal sinus rhythm Nonspecific [...] Info) Description 12/05/2024 10:45 AM EST Appointment [facility] CT Scan [address] [place] [id number] 12/05/2024 11:15 AM EST Office Visit [facility] [place] [facility] [place] [address] [place] [id number] Ashley Davis PA [address], [address] [place] [address] 03/06/2025 11:30 AM EDT Office Visit Medical Administrative Technician - [place] [address] [facility] [place] [phone] Garcia Doran MD [address] [place] [address] documented as of this encounter Procedures Procedure [...] requiring operative repair, left, closed, initial encounter ([facility], [facility]) [place] HEMIARTHROPLASTY HIP PARTIAL 11/17/2024 12:14 PM EST Hip fracture requiring operative repair, left, closed, initial encounter ([facility]) Case Notes c arm, implants, lateral position [...] EST ESTRADA URINE CULTURE TUBE STAT 11/14/19 25 1:58 PM EST URINALYSIS WITH REFLEX MICROSCOPIC [...] ECG 12-LEAD Routine 11/14/2024 9:41 AM EST VT CRITICAL CARE EACH ADDITIONAL 30 MINUTES Routine 11/14/2024 9:21 AM EST VT CRITICAL CARE EACH ADDITIONAL 30 MINUTES Routine 11/14/2024 9:21 AM EST VT CRITICAL CARE EACH ADDITIONAL 30 MINUTES Routine 11/14/2024 9:21 AM EST ECG ANNOTATED 11/14/2024 documented in this encounter Results * (ABNORMAL) Complete blood count (11/26/2024 5:49 AM EST) [facility] WBC 8.6 4.8 - 10.8 K/mcL LAB HEMETOLOGY METHOD 11/26/2024 6:52 AM EST [facility] RBC 2.50(L) 3.80 - 4.80 M/mcL LAB HEMETOLOGY METHOD 11/26/2024 6:52 AM EST [facility] Hemoglobin 7.8(L) 11.5 - 16.0 g/dL LAB HEMETOLOGY METHOD 11/26/2024 6:52 AM [facility] Hematocrit 25.0(L) 35.0 - 47.0 % LAB HEMETOLOGY METHOD 11/26/2024 6:52 AM [facility] MCV 98.8(H) 79.0 - 98.0 FL LAB HEMETOLOGY METHOD 11/26/2024 6:52 AM [facility] MCH 30.8 27.0 - 32.0 pcg LAB HEMETOLOGY METHOD 11/26/2024 6:52 AM [facility] MCHC 31.2(L) 32.0 - 37.0 g/dL LAB HEMETOLOGY METHOD 11/26/2024 6:52 AM [facility] RDW 16.2(H) 11.0 - 15.0 % LAB HEMETOLOGY METHOD 11/26/2024 6:52 AM [facility] Platelets 478(H) 130 - 400 K/mcL LAB HEMETOLOGY METHOD 11/26/2024 6:52 AM [facility] MPV 9.2 7.0 - 11.0 FL LAB HEMETOLOGY METHOD 11/26/2024 6:52 AM [facility] NRBC 0.0 <1.0 % LAB HEMETOLOGY METHOD 11/26/2024 6:52 AM [facility] NRBC Absolute 0.00 <0.10 K/mcL LAB HEMETOLOGY METHOD 11/26/2024 6:52 AM [facility] Blood Venous blood specimen / Unknown Venipuncture / Unknown 11/26/2024 5:49 AM EST 11/26/2024 6:33 AM EST Jaz DANIELS LAB BLOOD ORDERABLES [facility] [address] [place] [address], * Basic metabolic panel (11/26/2024 5:49 AM EST) Sodium 138 133 - 145 mmol/L LAB CHEMISTRY METHOD 11/26/2024 7:10 AM [facility] Potassium 4.5 3.5 - 5.5 mmol/L LAB CHEMISTRY METHOD 11/26/2024 7:10 AM [facility] Chloride 105 96 - 110 mmol/L LAB CHEMISTRY METHOD 11/26/2024 7:10 AM [facility] CO2 29 21 - 32 mmol/L LAB CHEMISTRY METHOD 11/26/2024 7:10 AM [facility] Anion Gap 4 3 - 11 LAB CHEMISTRY METHOD 11/26/2024 7:10 AM [facility] Glucose 86 70 - 100 mg/dL LAB CHEMISTRY METHOD 11/26/2024 7:10 AM [facility] BUN 15 5 - 25 mg/dL LAB CHEMISTRY METHOD 11/26/2024 7:10 AM [facility] Creatinine 0.72 0.50 - 1.10 mg/dL LAB CHEMISTRY METHOD 11/26/2024 7:10 AM [facility] eGFR 86 >=60 mL/min/1. 73m2 LAB CHEMISTRY METHOD 11/26/2024 7:10 AM [facility] Comment:Calculation based on the??Chronic Kidney Disease Epidemiology Collaboration (CKD-EPI) equation refit??without adjustment for race. BUN/Creatinine Ratio 20.8 LAB CHEMISTRY METHOD 11/26/2024 7:10 AM [facility] Calcium 8.7 8.5 - 10.5 mg/dL LAB CHEMISTRY METHOD 11/26/2024 7:10 AM [facility] Blood Venous blood specimen / Unknown Venipuncture / Unknown 11/26/2024 5:49 AM EST 11/26/2024 6:33 AM EST Jaz DANIELS LAB BLOOD ORDERABLES [facility] [address] [place] [address], * (ABNORMAL) Complete blood count (11/25/2024 6:59 AM EST) WBC 9.7 4.8 - 10.8 K/mcL LAB HEMETOLOGY METHOD 11/25/2024 8:05 AM [facility] RBC 2.70(L) 3.80 - 4.80 M/mcL LAB HEMETOLOGY METHOD 11/25/2024 8:05 AM [facility] Hemoglobin 8.1(L) 11.5 - 16.0 g/dL LAB HEMETOLOGY METHOD 11/25/2024 8:05 AM [facility] Hematocrit 25.6(L) 35.0 - 47.0 % LAB HEMETOLOGY METHOD 11/25/2024 8:05 AM [facility] MCV 95.9 79.0 - 98.0 FL LAB HEMETOLOGY METHOD 11/25/2024 8:05 AM [facility] MCH 30.3 27.0 - 32.0 pcg LAB HEMETOLOGY METHOD 11/25/2024 8:05 AM [facility] MCHC 31.6(L) 32.0 - 37.0 g/dL LAB HEMETOLOGY METHOD 11/25/2024 8:05 AM [facility] RDW 15.9(H) 11.0 - 15.0 % LAB HEMETOLOGY METHOD 11/25/2024 8:05 AM [facility] Platelets 437(H) 130 - 400 K/mcL LAB HEMETOLOGY METHOD 11/25/2024 8:05 AM [facility] MPV 9.3 7.0 - 11.0 FL LAB HEMETOLOGY METHOD 11/25/2024 8:05 AM EST [facility] NRBC 0.0 <1.0 % LAB HEMETOLOGY METHOD 11/25/2024 8:05 AM [facility] NRBC Absolute 0.00 <0.10 K/mcL LAB HEMETOLOGY METHOD 11/25/2024 8:05 AM [facility] Blood Venous blood specimen / Unknown Venipuncture / Unknown 11/25/2024 6:59 AM EST 11/25/2024 7:47 AM EST Jaz DANIELS LAB BLOOD ORDERABLES [facility] [address] [place] [address], * (ABNORMAL) Basic metabolic panel (11/25/2024 6:59 AM EST) Sodium 136 133 - 145 mmol/L LAB CHEMISTRY METHOD 11/25/2024 8:47 AM [facility] Potassium 4.4 3.5 - 5.5 mmol/L LAB CHEMISTRY METHOD 11/25/2024 8:47 AM [facility] Chloride 104 96 - 110 mmol/L LAB CHEMISTRY METHOD 11/25/2024 8:47 AM [facility] CO2 30 21 - 32 mmol/L LAB CHEMISTRY METHOD 11/25/2024 8:47 AM [facility] Anion Gap 2(L) 3 - 11 LAB CHEMISTRY METHOD 11/25/2024 8:47 AM [facility] Glucose 95 70 - 100 mg/dL LAB CHEMISTRY METHOD 11/25/2024 8:47 AM [facility] BUN 16 5 - 25 mg/dL LAB CHEMISTRY METHOD 11/25/2024 8:47 AM [facility] Creatinine 0.75 0.50 - 1.10 mg/dL LAB CHEMISTRY METHOD 11/25/2024 8:47 AM [facility] eGFR 82 >=60 mL/min/1. 73m2 LAB CHEMISTRY METHOD 11/25/2024 8:47 AM EST [facility] Comment:Calculation based on the??Chronic Kidney Disease Epidemiology Collaboration (CKD-EPI) equation refit??without adjustment for race. BUN/Creatinine Ratio 21.3 LAB CHEMISTRY METHOD 11/25/2024 8:47 AM [facility] Calcium 8.8 8.5 - 10.5 mg/dL LAB CHEMISTRY METHOD 11/25/2024 8:47 AM [facility] Blood Venous blood specimen / Unknown Venipuncture / Unknown 11/25/2024 6:59 AM EST 11/25/2024 7:36 AM EST Jaz DANIELS LAB BLOOD ORDERABLES [facility] [address] [place] [address], * (ABNORMAL) Complete blood count (11/24/2024 6:24 AM EST) WBC 8.1 4.8 - 10.8 K/mcL LAB HEMETOLOGY METHOD 11/24/2024 7:31 AM [facility] RBC 2.80(L) 3.80 - 4.80 M/mcL LAB HEMETOLOGY METHOD 11/24/2024 7:31 AM [facility] Hemoglobin 8.8(L) 11.5 - 16.0 g/dL LAB HEMETOLOGY METHOD 11/24/2024 7:31 AM [facility] Hematocrit 26.9(L) 35.0 - 47.0 % LAB HEMETOLOGY METHOD 11/24/2024 7:31 AM [facility] MCV 96.1 79.0 - 98.0 FL LAB HEMETOLOGY METHOD 11/24/2024 7:31 AM [facility] MCH 31.4 27.0 - 32.0 pcg LAB HEMETOLOGY METHOD 11/24/2024 7:31 AM EST [facility] MCHC 32.7 32.0 - 37.0 g/dL LAB HEMETOLOGY METHOD 11/24/2024 7:31 AM EST [facility] RDW 15.4(H) 11.0 - 15.0 % LAB HEMETOLOGY METHOD 11/24/2024 7:31 AM [facility] Platelets 389 130 - 400 K/mcL LAB HEMETOLOGY METHOD 11/24/2024 7:31 AM [facility] MPV 9.2 7.0 - 11.0 FL LAB HEMETOLOGY METHOD 11/24/2024 7:31 AM EST [facility] NRBC 0.2 <1.0 % LAB HEMETOLOGY METHOD 11/24/2024 7:31 AM EST [facility] NRBC Absolute 0.02 <0.10 K/mcL LAB HEMETOLOGY METHOD 11/24/2024 7:31 AM [facility] Blood Venous blood specimen / Unknown Venipuncture / Unknown 11/24/2024 6:24 AM EST 11/24/2024 6:48 AM EST Jaz DANIELS LAB BLOOD ORDERABLES [facility] [address] [place] [address], * (ABNORMAL) Basic metabolic panel (11/24/2024 6:24 AM EST) Sodium 138 133 - 145 mmol/L LAB CHEMISTRY METHOD 11/24/2024 8:12 AM [facility] Potassium 4.1 3.5 - 5.5 mmol/L LAB CHEMISTRY METHOD 11/24/2024 8:12 AM [facility] Chloride 105 96 - 110 mmol/L LAB CHEMISTRY METHOD 11/24/2024 8:12 AM [facility] CO2 30 21 - 32 mmol/L LAB CHEMISTRY METHOD 11/24/2024 8:12 AM [facility] Anion Gap 3 3 - 11 LAB CHEMISTRY METHOD 11/24/2024 8:12 AM [facility] Glucose 101(H) 70 - 100 mg/dL LAB CHEMISTRY METHOD 11/24/2024 8:12 AM [facility] BUN 16 5 - 25 mg/dL LAB CHEMISTRY METHOD 11/24/2024 8:12 AM [facility] Creatinine 0.77 0.50 - 1.10 mg/dL LAB CHEMISTRY METHOD 11/24/2024 8:12 AM [facility] eGFR 80 >=60 mL/min/1. 73m2 LAB CHEMISTRY METHOD 11/24/2024 8:12 AM [facility] Comment:Calculation based on the??Chronic Kidney Disease Epidemiology Collaboration (CKD-EPI) equation refit??without adjustment for race. BUN/Creatinine Ratio 20.8 LAB CHEMISTRY METHOD 11/24/2024 8:12 AM [facility] Calcium 8.8 8.5 - 10.5 mg/dL LAB CHEMISTRY METHOD 11/24/2024 8:12 AM [facility] Blood Venous blood specimen / Unknown Venipuncture / Unknown 11/24/2024 6:24 AM EST 11/24/2024 6:48 AM EST Jaz DANIELS LAB BLOOD ORDERABLES [facility] [address] [place] [address], * (ABNORMAL) Complete blood count (11/23/2024 6:25 AM EST) WBC 9.4 4.8 - 10.8 K/mcL LAB HEMETOLOGY METHOD 11/23/2024 7:28 AM [facility] RBC 2.80(L) 3.80 - 4.80 M/mcL LAB HEMETOLOGY METHOD 11/23/2024 7:28 AM [facility] Hemoglobin 8.7(L) 11.5 - 16.0 g/dL LAB HEMETOLOGY METHOD 11/23/2024 7:28 AM [facility] Hematocrit 27.2(L) 35.0 - 47.0 % LAB HEMETOLOGY METHOD 11/23/2024 7:28 AM [facility] MCV 96.5 79.0 - 98.0 FL LAB HEMETOLOGY METHOD 11/23/2024 7:28 AM [facility] MCH 30.9 27.0 - 32.0 pcg LAB HEMETOLOGY METHOD 11/23/2024 7:28 AM [facility] MCHC 32.0 32.0 - 37.0 g/dL LAB HEMETOLOGY METHOD 11/23/2024 7:28 AM [facility] RDW 15.3(H) 11.0 - 15.0 % LAB HEMETOLOGY METHOD 11/23/2024 7:28 AM [facility] Platelets 345 130 - 400 K/mcL LAB HEMETOLOGY METHOD 11/23/2024 7:28 AM [facility] MPV 9.6 7.0 - 11.0 FL LAB HEMETOLOGY METHOD 11/23/2024 7:28 AM [facility] NRBC 0.0 <1.0 % LAB HEMETOLOGY METHOD 11/23/2024 7:28 AM [facility] NRBC Absolute 0.00 <0.10 K/mcL LAB HEMETOLOGY METHOD 11/23/2024 7:28 AM [facility] Blood Venous blood specimen / Unknown Venipuncture / Unknown 11/23/2024 6:25 AM EST 11/23/2024 7:04 AM EST Jaz DANIELS LAB BLOOD ORDERABLES [facility] [address] [place] [address], * Basic metabolic panel (11/23/2024 6:25 AM EST) Sodium 139 133 - 145 mmol/L LAB CHEMISTRY METHOD 11/23/2024 7:38 AM [facility] Potassium 4.2 3.5 - 5.5 mmol/L LAB CHEMISTRY METHOD 11/23/2024 7:38 AM [facility] Chloride 106 96 - 110 mmol/L LAB CHEMISTRY METHOD 11/23/2024 7:38 AM [facility] CO2 29 21 - 32 mmol/L LAB CHEMISTRY METHOD 11/23/2024 7:38 AM [facility] Anion Gap 4 3 - 11 LAB CHEMISTRY METHOD 11/23/2024 7:38 AM [facility] Glucose 89 70 - 100 mg/dL LAB CHEMISTRY METHOD 11/23/2024 7:38 AM [facility] BUN 15 5 - 25 mg/dL LAB CHEMISTRY METHOD 11/23/2024 7:38 AM [facility] Creatinine 0.64 0.50 - 1.10 mg/dL LAB CHEMISTRY METHOD 11/23/2024 7:38 AM [facility] eGFR 91 >=60 mL/min/1. 73m2 LAB CHEMISTRY METHOD 11/23/2024 7:38 AM [facility] Comment:Calculation based on the??Chronic Kidney Disease Epidemiology Collaboration (CKD-EPI) equation refit??without adjustment for race. BUN/Creatinine Ratio 23.4 LAB CHEMISTRY METHOD 11/23/2024 7:38 AM [facility] Calcium 8.9 8.5 - 10.5 mg/dL LAB CHEMISTRY METHOD 11/23/2024 7:38 AM [facility] Blood Venous blood specimen / Unknown Venipuncture / Unknown 11/23/2024 6:25 AM EST 11/23/2024 7:04 AM EST Jaz DANIELS LAB BLOOD ORDERABLES [facility] [address] [place] [address], * (ABNORMAL) Complete blood count (11/22/2024 6:37 AM EST) WBC 8.6 4.8 - 10.8 K/mcL LAB HEMETOLOGY METHOD 11/22/2024 7:20 AM [facility] RBC 2.70(L) 3.80 - 4.80 M/mcL LAB HEMETOLOGY METHOD 11/22/2024 7:20 AM [facility] Hemoglobin 8.3(L) 11.5 - 16.0 g/dL LAB HEMETOLOGY METHOD 11/22/2024 7:20 AM [facility] Hematocrit 25.9(L) 35.0 - 47.0 % LAB HEMETOLOGY METHOD 11/22/2024 7:20 AM [facility] MCV 96.6 79.0 - 98.0 FL LAB HEMETOLOGY METHOD 11/22/2024 7:20 AM [facility] MCH 31.0 27.0 - 32.0 pcg LAB HEMETOLOGY METHOD 11/22/2024 7:20 AM [facility] MCHC 32.0 32.0 - 37.0 g/dL LAB HEMETOLOGY METHOD 11/22/2024 7:20 AM [facility] RDW 15.0 11.0 - 15.0 % LAB HEMETOLOGY METHOD 11/22/2024 7:20 AM [facility] Platelets 273 130 - 400 K/mcL LAB HEMETOLOGY METHOD 11/22/2024 7:20 AM EST [facility] MPV 9.3 7.0 - 11.0 FL LAB HEMETOLOGY METHOD 11/22/2024 7:20 AM [facility] NRBC 0.0 <1.0 % LAB HEMETOLOGY METHOD 11/22/2024 7:20 AM [facility] NRBC Absolute 0.00 <0.10 K/mcL LAB HEMETOLOGY METHOD 11/22/2024 7:20 AM [facility] [facility] Blood Venous blood specimen / Unknown Venipuncture / Unknown 11/22/2024 6:37 AM EST 11/22/2024 7:01 AM EST Jaz DANIELS LAB BLOOD ORDERABLES [facility] [address] [place] [address], * (ABNORMAL) Basic metabolic panel (11/22/2024 6:37 AM EST) Sodium 139 133 - 145 mmol/L LAB CHEMISTRY METHOD 11/22/2024 8:17 AM [facility] Potassium 4.9 3.5 - 5.5 mmol/L LAB CHEMISTRY METHOD 11/22/2024 8:17 AM [facility] Chloride 106 96 - 110 mmol/L LAB CHEMISTRY METHOD 11/22/2024 8:17 AM [facility] CO2 31 21 - 32 mmol/L LAB CHEMISTRY METHOD 11/22/2024 8:17 AM [facility] Anion Gap 2(L) 3 - 11 LAB CHEMISTRY METHOD 11/22/2024 8:17 AM [facility] Glucose 98 70 - 100 mg/dL LAB CHEMISTRY METHOD 11/22/2024 8:17 AM [facility] BUN 17 5 - 25 mg/dL LAB CHEMISTRY METHOD 11/22/2024 8:17 AM EST [facility] Creatinine 0.64 0.50 - 1.10 mg/dL LAB CHEMISTRY METHOD 11/22/2024 8:17 AM EST [facility] eGFR 91 >=60 mL/min/1. 73m2 LAB CHEMISTRY METHOD 11/22/2024 8:17 AM EST [facility] Comment:Calculation based on the??Chronic Kidney Disease Epidemiology Collaboration (CKD-EPI) equation refit??without adjustment for race. BUN/Creatinine Ratio 26.6 LAB CHEMISTRY METHOD 11/22/2024 8:17 AM [facility] Calcium 8.5 8.5 - 10.5 mg/dL LAB CHEMISTRY METHOD 11/22/2024 8:17 AM [facility] Blood Venous blood specimen / Unknown Venipuncture / Unknown 11/22/2024 6:37 AM EST 11/22/2024 7:01 AM EST Jaz DANIELS LAB BLOOD ORDERABLES [facility] [address] [place] [address], * CT Head wo Contrast (11/21/2024 8:31 [...] Signed Date: 11/21/2024 08:46 ET Workstation ID: [id number] Transcribed By: Self Edit Transcribed Date: 11/21/2024 [...] Signed Date: 11/21/2024 08:46 ET Workstation ID: [id number] Transcribed By: Self Edit Transcribed Date: 11/21/2024 08:43 ET Janey DANIELS [facility] CT PROCEDURES * (ABNORMAL) Complete blood count (11/21/2024 5:41 AM EST) [facility] WBC 8.4 4.8 - 10.8 K/mcL LAB HEMETOLOGY METHOD 11/21/2024 7:17 AM [facility] RBC 2.70(L) 3.80 - 4.80 M/mcL LAB HEMETOLOGY METHOD 11/21/2024 7:17 AM [facility] Hemoglobin 8.2(L) 11.5 - 16.0 g/dL LAB HEMETOLOGY METHOD 11/21/2024 7:17 AM [facility] Hematocrit 26.0(L) 35.0 - 47.0 % LAB HEMETOLOGY METHOD 11/21/2024 7:17 AM [facility] MCV 96.3 79.0 - 98.0 FL LAB HEMETOLOGY METHOD 11/21/2024 7:17 AM [facility] MCH 30.4 27.0 - 32.0 pcg LAB HEMETOLOGY METHOD 11/21/2024 7:17 AM [facility] MCHC 31.5(L) 32.0 - 37.0 g/dL LAB HEMETOLOGY METHOD 11/21/2024 7:17 AM [facility] RDW 15.2(H) 11.0 - 15.0 % LAB HEMETOLOGY METHOD 11/21/2024 7:17 AM [facility] Platelets 235 130 - 400 K/mcL LAB HEMETOLOGY METHOD 11/21/2024 7:17 AM [facility] MPV 9.8 7.0 - 11.0 FL LAB HEMETOLOGY METHOD 11/21/2024 7:17 AM [facility] NRBC 0.0 <1.0 % LAB HEMETOLOGY METHOD 11/21/2024 7:17 AM [facility] NRBC Absolute 0.00 <0.10 K/mcL LAB HEMETOLOGY METHOD 11/21/2024 7:17 AM [facility] Blood Venous blood specimen / Unknown Venipuncture / Unknown 11/21/2024 5:41 AM EST 11/21/2024 6:25 AM EST Jaz DANIELS LAB BLOOD ORDERABLES [facility] [address] [place] [address], * (ABNORMAL) Basic metabolic panel (11/21/2024 5:41 AM EST) Sodium 138 133 - 145 mmol/L LAB CHEMISTRY METHOD 11/21/2024 7:13 AM [facility] Potassium 4.0 3.5 - 5.5 mmol/L LAB CHEMISTRY METHOD 11/21/2024 7:13 AM [facility] Chloride 104 96 - 110 mmol/L LAB CHEMISTRY METHOD 11/21/2024 7:13 AM [facility] CO2 29 21 - 32 mmol/L LAB CHEMISTRY METHOD 11/21/2024 7:13 AM [facility] Anion Gap 5 3 - 11 LAB CHEMISTRY METHOD 11/21/2024 7:13 AM [facility] Glucose 99 70 - 100 mg/dL LAB CHEMISTRY METHOD 11/21/2024 7:13 AM [facility] BUN 18 5 - 25 mg/dL LAB CHEMISTRY METHOD 11/21/2024 7:13 AM [facility] Creatinine 0.60 0.50 - 1.10 mg/dL LAB CHEMISTRY METHOD 11/21/2024 7:13 AM [facility] eGFR 93 >=60 mL/min/1. 73m2 LAB CHEMISTRY METHOD 11/21/2024 7:13 AM [facility] Comment:Calculation based on the??Chronic Kidney Disease Epidemiology Collaboration (CKD-EPI) equation refit??without adjustment for race. BUN/Creatinine Ratio 30.0 LAB CHEMISTRY METHOD 11/21/2024 7:13 AM [facility] Calcium 8.1(L) 8.5 - 10.5 mg/dL LAB CHEMISTRY METHOD 11/21/2024 7:13 AM [facility] Blood Venous blood specimen / Unknown Venipuncture / Unknown 11/21/2024 5:41 AM EST 11/21/2024 6:25 AM EST Jaz DANIELS LAB BLOOD ORDERABLES [facility] [address] [place] [address], * (ABNORMAL) Complete blood count (11/20/2024 6:09 AM EST) WBC 7.6 4.8 - 10.8 K/mcL LAB HEMETOLOGY METHOD 11/20/2024 7:53 AM [facility] RBC 2.70(L) 3.80 - 4.80 M/mcL LAB HEMETOLOGY METHOD 11/20/2024 7:53 AM [facility] Hemoglobin 8.3(L) 11.5 - 16.0 g/dL LAB HEMETOLOGY METHOD 11/20/2024 7:53 AM [facility] Hematocrit 26.4(L) 35.0 - 47.0 % LAB HEMETOLOGY METHOD 11/20/2024 7:53 AM [facility] MCV 97.8 79.0 - 98.0 FL LAB HEMETOLOGY METHOD 11/20/2024 7:53 AM [facility] MCH 30.7 27.0 - 32.0 pcg LAB HEMETOLOGY METHOD 11/20/2024 7:53 AM [facility] MCHC 31.4(L) 32.0 - 37.0 g/dL LAB HEMETOLOGY METHOD 11/20/2024 7:53 AM EST [facility] RDW 15.4(H) 11.0 - 15.0 % LAB HEMETOLOGY METHOD 11/20/2024 7:53 AM EST [facility] Platelets 195 130 - 400 K/mcL LAB HEMETOLOGY METHOD 11/20/2024 7:53 AM [facility] MPV 10.1 7.0 - 11.0 FL LAB HEMETOLOGY METHOD 11/20/2024 7:53 AM EST [facility] NRBC 0.0 <1.0 % LAB HEMETOLOGY METHOD 11/20/2024 7:53 AM [facility] NRBC Absolute 0.00 <0.10 K/mcL LAB HEMETOLOGY METHOD 11/20/2024 7:53 AM [facility] Blood Venous blood specimen / Unknown Venipuncture / Unknown 11/20/2024 6:09 AM EST 11/20/2024 7:28 AM EST Jaz DANIELS LAB BLOOD ORDERABLES [facility] [address] [place] [address], * (ABNORMAL) Basic metabolic panel (11/20/2024 6:09 AM EST) Sodium 138 133 - 145 mmol/L LAB CHEMISTRY METHOD 11/20/2024 8:32 AM EST [facility] Potassium 4.1 3.5 - 5.5 mmol/L LAB CHEMISTRY METHOD 11/20/2024 8:32 AM [facility] Chloride 106 96 - 110 mmol/L LAB CHEMISTRY METHOD 11/20/2024 8:32 AM [facility] CO2 30 21 - 32 mmol/L LAB CHEMISTRY METHOD 11/20/2024 8:32 AM [facility] Anion Gap 2(L) 3 - 11 LAB CHEMISTRY METHOD 11/20/2024 8:32 AM [facility] Glucose 94 70 - 100 mg/dL LAB CHEMISTRY METHOD 11/20/2024 8:32 AM [facility] BUN 21 5 - 25 mg/dL LAB CHEMISTRY METHOD 11/20/2024 8:32 AM [facility] Creatinine 0.67 0.50 - 1.10 mg/dL LAB CHEMISTRY METHOD 11/20/2024 8:32 AM [facility] eGFR 90 >=60 mL/min/1. 73m2 LAB CHEMISTRY METHOD 11/20/2024 8:32 AM [facility] Comment:Calculation based on the??Chronic Kidney Disease Epidemiology Collaboration (CKD-EPI) equation refit??without adjustment for race. BUN/Creatinine Ratio 31.3 LAB CHEMISTRY METHOD 11/20/2024 8:32 AM [facility] Calcium 8.3(L) 8.5 - 10.5 mg/dL LAB CHEMISTRY METHOD 11/20/2024 8:32 AM [facility] Blood Venous blood specimen / Unknown Venipuncture / Unknown 11/20/2024 6:09 AM EST 11/20/2024 7:26 AM EST Jaz DANIELS LAB BLOOD ORDERABLES [facility] [address] [place] [address], * (ABNORMAL) Complete blood count (11/19/2024 6:01 AM EST) WBC 8.1 4.8 - 10.8 K/mcL LAB HEMETOLOGY METHOD 11/19/2024 7:06 AM [facility] RBC 2.70(L) 3.80 - 4.80 M/mcL LAB HEMETOLOGY METHOD 11/19/2024 7:06 AM [facility] Hemoglobin 8.3(L) 11.5 - 16.0 g/dL LAB HEMETOLOGY METHOD 11/19/2024 7:06 AM [facility] Hematocrit 25.8(L) 35.0 - 47.0 % LAB HEMETOLOGY METHOD 11/19/2024 7:06 AM [facility] MCV 95.2 79.0 - 98.0 FL LAB HEMETOLOGY METHOD 11/19/2024 7:06 AM [facility] MCH 30.6 27.0 - 32.0 pcg LAB HEMETOLOGY METHOD 11/19/2024 7:06 AM [facility] MCHC 32.2 32.0 - 37.0 g/dL LAB HEMETOLOGY METHOD 11/19/2024 7:06 AM [facility] RDW 15.6(H) 11.0 - 15.0 % LAB HEMETOLOGY METHOD 11/19/2024 7:06 AM [facility] Platelets 165 130 - 400 K/mcL LAB HEMETOLOGY METHOD 11/19/2024 7:06 AM [facility] MPV 10.4 7.0 - 11.0 FL LAB HEMETOLOGY METHOD 11/19/2024 7:06 AM [facility] NRBC 0.0 <1.0 % LAB HEMETOLOGY METHOD 11/19/2024 7:06 AM [facility] NRBC Absolute 0.00 <0.10 K/mcL LAB HEMETOLOGY METHOD 11/19/2024 7:06 AM [facility] Blood Venous blood specimen / Unknown Venipuncture / Unknown 11/19/2024 6:01 AM EST 11/19/2024 6:38 AM EST Jaz DANIELS LAB BLOOD ORDERABLES [facility] [address] [place] [address], * (ABNORMAL) Basic metabolic panel (11/19/2024 6:01 AM EST) Sodium 139 133 - 145 mmol/L LAB CHEMISTRY METHOD 11/19/2024 7:25 AM [facility] Potassium 4.0 3.5 - 5.5 mmol/L LAB CHEMISTRY METHOD 11/19/2024 7:25 AM [facility] Chloride 108 96 - 110 mmol/L LAB CHEMISTRY METHOD 11/19/2024 7:25 AM [facility] CO2 27 21 - 32 mmol/L LAB CHEMISTRY METHOD 11/19/2024 7:25 AM [facility] Anion Gap 4 3 - 11 LAB CHEMISTRY METHOD 11/19/2024 7:25 AM [facility] Glucose 97 70 - 100 mg/dL LAB CHEMISTRY METHOD 11/19/2024 7:25 AM [facility] BUN 25 5 - 25 mg/dL LAB CHEMISTRY METHOD 11/19/2024 7:25 AM [facility] Creatinine 0.71 0.50 - 1.10 mg/dL LAB CHEMISTRY METHOD 11/19/2024 7:25 AM [facility] eGFR 88 >=60 mL/min/1. 73m2 LAB CHEMISTRY METHOD 11/19/2024 7:25 AM [facility] Comment:Calculation based on the??Chronic Kidney Disease Epidemiology Collaboration (CKD-EPI) equation refit??without adjustment for race. BUN/Creatinine Ratio 35.2 LAB CHEMISTRY METHOD 11/19/2024 7:25 AM [facility] Calcium 8.1(L) 8.5 - 10.5 mg/dL LAB CHEMISTRY METHOD 11/19/2024 7:25 AM [facility] Blood Venous blood specimen / Unknown Venipuncture / Unknown 11/19/2024 6:01 AM EST 11/19/2024 6:37 AM EST Jaz DANIELS LAB BLOOD ORDERABLES SEFERINO CALDERÓN [place] ([place]) [facility] [address] [facility] [place] [address], * MR Brain wo Contrast (11/18/2024 7:01 [...] Signed Date: 11/18/2024 14:33 ET Workstation ID: [id number] Transcribed By: Self Edit Transcribed Date: 11/18/2024 [...] Signed Date: 11/18/2024 14:33 ET Workstation ID: [id number] Transcribed By: Self Edit Transcribed Date: 11/18/2024 [...] 76 mL CV PACS Left Atrium Minor [place] 5.3 cm CV PACS Left Atrium Major [place] 5.5 cm CV PACS LA Area Sys [...] VTI 39.1 cm CV PACS AV Peak [place] 1.8 m/s CV PACS AV Peak Gradient 13 mmHg CV PACS AV Area Continuity Equation 1.9 cm2 CV PACS AV Area Peak Velocity 2.0 cm2 CV PACS Aortic Arch 2.3 cm CV PACS Ascending Aorta 3.2 cm CV PACS Aortic Sinus Valsalva 3.7 cm CV PACS IVC Proximal 1.5 cm CV PACS MV Deceleration [place] 5.0 m/s2 CV PACS E Wave Deceleration [...] the study quality was technically difficult. Demarcus Villalobso MD CV ECHO PROCEDURES * (ABNORMAL) Complete blood count (11/18/2024 5:44 AM EST) [facility] WBC 8.2 4.8 - 10.8 K/mcL LAB HEMETOLOGY METHOD 11/18/2024 7:01 AM [facility] RBC 3.00(L) 3.80 - 4.80 M/mcL LAB HEMETOLOGY METHOD 11/18/2024 7:01 AM [facility] Hemoglobin 9.0(L) 11.5 - 16.0 g/dL LAB HEMETOLOGY METHOD 11/18/2024 7:01 AM [facility] Hematocrit 27.8(L) 35.0 - 47.0 % LAB HEMETOLOGY METHOD 11/18/2024 7:01 AM [facility] MCV 94.2 79.0 - 98.0 FL LAB HEMETOLOGY METHOD 11/18/2024 7:01 AM [facility] MCH 30.5 27.0 - 32.0 pcg LAB HEMETOLOGY METHOD 11/18/2024 7:01 AM [facility] MCHC 32.4 32.0 - 37.0 g/dL LAB HEMETOLOGY METHOD 11/18/2024 7:01 AM [facility] RDW 15.6(H) 11.0 - 15.0 % LAB HEMETOLOGY METHOD 11/18/2024 7:01 AM [facility] Platelets 158 130 - 400 K/mcL LAB HEMETOLOGY METHOD 11/18/2024 7:01 AM [facility] MPV 10.6 7.0 - 11.0 FL LAB HEMETOLOGY METHOD 11/18/2024 7:01 AM [facility] NRBC 0.0 <1.0 % LAB HEMETOLOGY METHOD 11/18/2024 7:01 AM [facility] NRBC Absolute 0.00 <0.10 K/mcL LAB HEMETOLOGY METHOD 11/18/2024 7:01 AM [facility] Blood Venous blood specimen / Unknown Venipuncture / Unknown 11/18/2024 5:44 AM EST 11/18/2024 6:15 AM EST Jaz DANIELS LAB BLOOD ORDERABLES [facility] [address] [place] [address], * (ABNORMAL) Basic metabolic panel (11/18/2024 5:44 AM EST) Sodium 140 133 - 145 mmol/L LAB CHEMISTRY METHOD 11/18/2024 7:00 AM [facility] Potassium 4.7 3.5 - 5.5 mmol/L LAB CHEMISTRY METHOD 11/18/2024 7:00 AM [facility] Chloride 108 96 - 110 mmol/L LAB CHEMISTRY METHOD 11/18/2024 7:00 AM [facility] CO2 25 21 - 32 mmol/L LAB CHEMISTRY METHOD 11/18/2024 7:00 AM [facility] Anion Gap 7 3 - 11 LAB CHEMISTRY METHOD 11/18/2024 7:00 AM [facility] Glucose 119(H) 70 - 100 mg/dL LAB CHEMISTRY METHOD 11/18/2024 7:00 AM [facility] BUN 27(H) 5 - 25 mg/dL LAB CHEMISTRY METHOD 11/18/2024 7:00 AM [facility] Creatinine 0.89 0.50 - 1.10 mg/dL LAB CHEMISTRY METHOD 11/18/2024 7:00 AM [facility] eGFR 67 >=60 mL/min/1. 73m2 LAB CHEMISTRY METHOD 11/18/2024 7:00 AM EST [facility] Comment:Calculation based on the??Chronic Kidney Disease Epidemiology Collaboration (CKD-EPI) equation refit??without adjustment for race. BUN/Creatinine Ratio 30.3 LAB CHEMISTRY METHOD 11/18/2024 7:00 AM EST [facility] Calcium 8.4(L) 8.5 - 10.5 mg/dL LAB CHEMISTRY METHOD 11/18/2024 7:00 AM EST [facility] Blood Venous blood specimen / Unknown Venipuncture / Unknown 11/18/2024 5:44 AM EST 11/18/2024 6:15 AM EST Jaz DANIELS LAB BLOOD ORDERABLES [facility] [address] [place] [address], * XR Pelvis 1-2 Views (11/17/2024 4:41 PM EST) Anatomical Region Laterality Modality Body, Pelvis Radiographic Jalyn ging 11/17/2024 4:53 PM EST Impressions 11/17/2024 4:54 PM EST Impression: Postop left femoral endoprosthesis placement, with prosthesis appearing satisfactorily positioned. Teleyehuda DANIELS ([id number]) -------- FINAL REPORT -------- Dictated By: Muna Roblero Dictated Date: 11/17/2024 16:53 ET Assigned Physician: Muna Roblero Reviewed and Electronically Signed By: Muna Roblero Signed Date: 11/17/2024 16:54 ET Workstation ID: [id number] Transcribed By: Self Edit Transcribed Date: 11/17/2024 [...] placement, with prosthesis appearingsatisfactorily positioned. Ganesh DANIELS ([id number]) -------- FINAL REPORT -------- Dictated By: Muna Roblero Dictated Date: 11/17/2024 16:53 ET Assigned Physician: Muna Roblero Reviewed and Electronically Signed By: Muna Roblero Signed Date: 11/17/2024 16:54 ET Workstation ID: [id number] Transcribed By: Self Edit Transcribed Date: 11/17/2024 [...] Signed Date: 11/18/2024 06:58 ET Workstation ID: [id number] Transcribed By: Self Edit Transcribed Date: 11/18/2024 [...] Signed Date: 11/18/2024 06:58 ET Workstation ID: [id number] Transcribed By: Self Edit Transcribed Date: 11/18/2024 06:55 ET Elva Hester MD IMG XR PROCEDURES * Tissue exam (11/17/2024 1:17 PM EST) Final Diagnosis Bone, left femoral head: -CONSISTENT WITH FRACTURE 11/19/2024 10:45 AM EST [facility] Gross Description A. Bone, left [...] with some hemorrhage around the margin. A utility sales representative section is submitted in one cassette following decalcification, one piece CHECO 11/19/2024 10:45 AM [facility] Disclaimer Unless otherwise specified, all tissue is 10% NB formalin fixed and paraffin embedded. 11/19/2024 10:45 AM [facility] Bone Specimen from bone / Unknown 11/17/2024 1:17 PM EST 11/17/2024 3:55 PM EST Elva Hester MD LAB PATHOLOGY ORD ERABLES [facility] [address] [place] [address], * (ABNORMAL) CBC auto differential (11/17/2024 6:43 AM EST) WBC 7.4 4.8 - 10.8 K/mcL LAB HEMETOLOGY METHOD 11/17/2024 7:26 AM [facility] RBC 3.40(L) 3.80 - 4.80 M/[facility] LAB HEMETOLOGY METHOD 11/17/2024 7:26 AM [facility] Hemoglobin 10.6(L) 11.5 - 16.0 g/dL LAB HEMETOLOGY METHOD 11/17/2024 7:26 AM [facility] Hematocrit 32.3(L) 35.0 - 47.0 % LAB HEMETOLOGY METHOD 11/17/2024 7:26 AM [facility] MCV 94.2 79.0 - 98.0 FL LAB HEMETOLOGY METHOD 11/17/2024 7:26 AM [facility] MCH 30.9 27.0 - 32.0 pcg LAB HEMETOLOGY METHOD 11/17/2024 7:26 AM [facility] MCHC 32.8 32.0 - 37.0 g/dL LAB HEMETOLOGY METHOD 11/17/2024 7:26 AM [facility] RDW 15.3(H) 11.0 - 15.0 % LAB HEMETOLOGY METHOD 11/17/2024 7:26 AM [facility] Platelets 150 130 - 400 K/mcL LAB HEMETOLOGY METHOD 11/17/2024 7:26 AM [facility] MPV 10.6 7.0 - 11.0 FL LAB HEMETOLOGY METHOD 11/17/2024 7:26 AM [facility] NRBC 0.0 <1.0 % LAB HEMETOLOGY METHOD 11/17/2024 7:26 AM [facility] NRBC Absolute 0.00 <0.10 K/mcL LAB HEMETOLOGY METHOD 11/17/2024 7:26 AM [facility] Neutrophils Relative 73.8 % LAB HEMETOLOGY METHOD 11/17/2024 7:26 AM [facility] Lymphocytes Relative 11.4 % LAB HEMETOLOGY METHOD 11/17/2024 7:26 AM [facility] Monocytes Relative 9.7 % LAB HEMETOLOGY METHOD 11/17/2024 7:26 AM [facility] Eosinophils Relative 4.3 % LAB HEMETOLOGY METHOD 11/17/2024 7:26 AM [facility] Basophils Relative 0.3 % LAB HEMETOLOGY METHOD 11/17/2024 7:26 AM [facility] Immature Granulocytes Relative 0.5 % LAB HEMETOLOGY METHOD 11/17/2024 7:26 AM [facility] Neutrophils Absolute 5.48 1.50 - 7.00 K/mcL LAB HEMETOLOGY METHOD 11/17/2024 7:26 AM EST [facility] Lymphocytes Absolute 0.85(L) 1.00 - 5.00 K/mcL LAB HEMETOLOGY METHOD 11/17/2024 7:26 AM [facility] Monocytes Absolute 0.72 0.20 - 1.00 K/mcL LAB HEMETOLOGY METHOD 11/17/2024 7:26 AM EST [facility] Eosinophils Absolute 0.32 0.00 - 0.50 K/[facility] LAB HEMETOLOGY METHOD 11/17/2024 7:26 AM [facility] Basophils Absolute 0.02 0.00 - 0.20 K/mcL LAB HEMETOLOGY METHOD 11/17/2024 7:26 AM [facility] Immature Granulocytes Absolute 0.04(H) 0.00 - 0.03 K/[facility] LAB HEMETOLOGY METHOD 11/17/2024 7:26 AM [facility] Blood Venous blood specimen / Unknown Venipuncture / Unknown 11/17/2024 6:43 AM EST 11/17/2024 7:07 AM EST Bhavin Garcia MD LAB BLOOD ORDERABLES Performing Organization Address [facility]/State/[facility] Co de Phone Number [facility] [address] [place] [address], * (ABNORMAL) Basic metabolic panel (11/17/2024 6:43 AM EST) Sodium 139 133 - 145 mmol/L LAB CHEMISTRY METHOD 11/17/2024 7:49 AM [facility] Potassium 3.3(L) 3.5 - 5.5 mmol/L LAB CHEMISTRY METHOD 11/17/2024 7:49 AM [facility] Chloride 107 96 - 110 mmol/L LAB CHEMISTRY METHOD 11/17/2024 7:49 AM EST [facility] CO2 27 21 - 32 mmol/L LAB CHEMISTRY METHOD 11/17/2024 7:49 AM [facility] Anion Gap 5 3 - 11 LAB CHEMISTRY METHOD 11/17/2024 7:49 AM [facility] Glucose 100 70 - 100 mg/dL LAB CHEMISTRY METHOD 11/17/2024 7:49 AM [facility] BUN 16 5 - 25 mg/dL LAB CHEMISTRY METHOD 11/17/2024 7:49 AM [facility] Creatinine 0.63 0.50 - 1.10 mg/dL LAB CHEMISTRY METHOD 11/17/2024 7:49 AM [facility] eGFR 91 >=60 mL/min/1. 73m2 LAB CHEMISTRY METHOD 11/17/2024 7:49 AM [facility] Comment:Calculation based on the??Chronic Kidney Disease Epidemiology Collaboration (CKD-EPI) equation refit??without adjustment for race. BUN/Creatinine Ratio 25.4 LAB CHEMISTRY METHOD 11/17/2024 7:49 AM [facility] Calcium 8.5 8.5 - 10.5 mg/dL LAB CHEMISTRY METHOD 11/17/2024 7:49 AM [facility] Blood Venous blood specimen / Unknown Venipuncture / Unknown 11/17/2024 6:43 AM EST 11/17/2024 7:12 AM EST Bhavin Garcia MD LAB BLOOD ORDERABLES [facility] [address] [place] [address], * CT Angio Chest wo and/or w [...] Signed Date: 11/16/2024 10:45 ET Workstation ID: [id number] Transcribed By: Self Edit Transcribed Date: 11/16/2024 10:26 ET Narrative 11/16/2024 10:45 AM EST EXAMINATION: CTA chest with contrast. CLINICAL INDICATION: SOB. Hip fracture. Rule out PE. COMPARISON: Chest x-ray 11/16/2024. TECHNIQUE: 2.5 mm thin axial and reformatted 3 mm thin sagittal and coronal images of chest were obtained following IV 90 mL Isovue-[id number]. Scanner: [employer] LightSpeed 64 slice VCT Dose reduction technique: [...] were obtained following IV 90 mL Isovue-370.Scanner: Medicalod[employer]peed 64 slice VCT Dose reduction technique: ASIR [...] Signed Date: 11/16/2024 10:45 ET Workstation ID: [id number] Transcribed By: Self Edit Transcribed Date: 11/16/2024 10:26 ET Rochelle DANIELS IM CT PROCEDURES * Respiratory virus panel molecular study (11/16/2024 5:44 AM EST) Adenovirus Detection by PCR Not Detected Not Detected LAB MICROBIOLOGY METHOD 11/16/2024 7:20 AM [facility] Influenza A PCR Not Detected Not Detected LAB MICROBIOLOGY METHOD 11/16/2024 7:20 AM [facility] Influenza B PCR Not Detected Not Detected LAB MICROBIOLOGY METHOD 11/16/2024 7:20 AM [facility] Coronavirus 229E Not Detected Not Detected LAB MICROBIOLOGY METHOD 11/16/2024 7:20 AM [facility] Coronavirus HKU1 Not Detected Not Detected LAB MICROBIOLOGY METHOD 11/16/2024 7:20 AM [facility] Coronavirus OC43 Not Detected Not Detected LAB MICROBIOLOGY METHOD 11/16/2024 7:20 AM [facility] Coronavirus NL63 Not Detected Not Detected LAB MICROBIOLOGY METHOD 11/16/2024 7:20 AM [facility] Parainfluenza Virus 1 Not Detected Not Detected LAB MICROBIOLOGY METHOD 11/16/2024 7:20 AM [facility] Parainfluenza Virus 2 Not Detected Not Detected LAB MICROBIOLOGY METHOD 11/16/2024 7:20 AM [facility] Parainfluenza Virus 3 Not Detected Not Detected LAB MICROBIOLOGY METHOD 11/16/2024 7:20 AM [facility] Parainfluenza Virus 4 Not Detected Not Detected LAB MICROBIOLOGY METHOD 11/16/2024 7:20 AM [facility] RSV PCR Not Detected Not Detected LAB MICROBIOLOGY METHOD 11/16/2024 7:20 AM [facility] Human Metapneumovirus A and B Not Detected Not Detected LAB MICROBIOLOGY METHOD 11/16/2024 7:20 AM [facility] Rhinovirus/Entero virus Not Detected Not Detected LAB MICROBIOLOGY METHOD 11/16/2024 7:20 AM [facility] Bordetella pertussis Not Detected Not Detected LAB MICROBIOLOGY METHOD 11/16/2024 7:20 AM [facility] Bordetella parapertussis Not Detected Not Detected LAB MICROBIOLOGY METHOD 11/16/2024 7:20 AM [facility] Mycoplasma pneumo by PCR Not Detected Not Detected LAB MICROBIOLOGY METHOD 11/16/2024 7:20 AM [facility] Chlamydia pneumoniae Not Detected Not Detected LAB MICROBIOLOGY METHOD 11/16/2024 7:20 AM [facility] SARS COV-2 Not Detected Not Detected LAB MICROBIOLOGY METHOD 11/16/2024 7:20 AM [facility] Swab Structure of right anterior naris / Unknown Non-blood Collection / Unknown 11/16/2024 5:44 AM EST 11/16/2024 6:27 AM EST [facility] - 11/16/2024 7:20 AM EST Testing was performed using the Curbside Respiratory Pathogen PCR Assay. All results must [...] [facility] MICROBIOLOGY - G ENERAL ORDERABLES [facility] [address] [place] [address], * (ABNORMAL) Arterial blood gas (11/16/2024 5:42 AM EST) pH, Arterial 7.47(H) 7.35 - 7.45 pH 11/16/2024 6:05 AM [facility] pCO2, Arterial 32(L) 35 - 45 mmHg 11/16/2024 6:05 AM [facility] pO2, Arterial 56(LL) 80 - 100 mmHg 11/16/2024 6:05 AM [facility] HCO3, Arterial 24.8 22.0 - 26.0 mmol/L 11/16/2024 6:05 AM [facility] O2 Sat, Arterial 89.9(L) 95.0 - 98.0 % 11/16/2024 6:05 AM [facility] Base Excess, Arterial 0.1 -2.0 - 2.0 mmol/L 11/16/2024 6:05 AM [facility] Al Test Pass Pass, Unresponsi ve, Line 11/16/2024 6:05 AM [facility] FIO2 21.00 11/16/2024 6:05 AM EST [facility] Blood Arterial blood specimen / Unknown Arterial Puncture / Unknown 11/16/2024 5:42 AM EST 11/16/2024 5:47 AM EST [facility] BLOOD ORDERABLES [facility] [address] [place] [address], * XR Chest 1 View (11/16/2024 4:48 [...] Signed Date: 11/16/2024 07:11 ET Workstation ID: [id number] Transcribed By: Self Edit Transcribed Date: 11/16/2024 [...] Signed Date: 11/16/2024 07:11 ET Workstation ID: [id number] Transcribed By: Self Edit Transcribed Date: 11/16/2024 [...] Signed Date: 11/15/2024 08:30 ET Workstation ID: [id number] Transcribed By: Self Edit Transcribed Date: 11/15/2024 08:25 ET Narrative 11/15/2024 8:30 AM EST Examination: CT brain without contrast. CLINICAL INDICATION: Follow-up subdural hematoma. COMPARISON: CT brain 11/14/2024 at 2:10 PM. TECHNIQUE: Routine 2.5 mm thin axial and reformatted 3 mm thin sagittal and coronal images of brain were obtained. Scanner: CultureAlley 64 slice VCT Dose reduction technique: ASIR [...] coronal images of brain were obtained. Scanner: CultureAlley 64 sliceVCT Dose reduction technique: ASIR (Adaptive [...] Signed Date: 11/15/2024 08:30 ET Workstation ID: [id number] Transcribed By: Self Edit Transcribed Date: 11/15/2024 08:25 ET Hardik DANIELS IMTram CT PROCEDURES * Vitamin B12 (11/15/2024 6:27 AM EST) Vitamin B-12 265 250 - 900 pcg/mL LAB CHEMISTRY METHOD 11/15/2024 6:00 PM [facility] Blood Venous blood specimen / Unknown Venipuncture / Unknown 11/15/2024 6:27 AM EST 11/15/2024 7:04 AM EST Bhavin Garcia MD LAB BLOOD ORDERABLES [facility] [address] [place] [address], * (ABNORMAL) CBC auto differential (11/15/2024 6:27 AM EST) WBC 8.8 4.8 - 10.8 K/mcL LAB HEMETOLOGY METHOD 11/15/2024 7:22 AM [facility] RBC 3.60(L) 3.80 - 4.80 M/mcL LAB HEMETOLOGY METHOD 11/15/2024 7:22 AM [facility] Hemoglobin 11.0(L) 11.5 - 16.0 g/dL LAB HEMETOLOGY METHOD 11/15/2024 7:22 AM [facility] Hematocrit 34.2(L) 35.0 - 47.0 % LAB HEMETOLOGY METHOD 11/15/2024 7:22 AM [facility] MCV 95.3 79.0 - 98.0 FL LAB HEMETOLOGY METHOD 11/15/2024 7:22 AM [facility] MCH 30.6 27.0 - 32.0 pcg LAB HEMETOLOGY METHOD 11/15/2024 7:22 AM [facility] MCHC 32.2 32.0 - 37.0 g/dL LAB HEMETOLOGY METHOD 11/15/2024 7:22 AM [facility] RDW 15.2(H) 11.0 - 15.0 % LAB HEMETOLOGY METHOD 11/15/2024 7:22 AM [facility] Platelets 162 130 - 400 K/mcL LAB HEMETOLOGY METHOD 11/15/2024 7:22 AM [facility] MPV 10.8 7.0 - 11.0 FL LAB HEMETOLOGY METHOD 11/15/2024 7:22 AM [facility] NRBC 0.0 <1.0 % LAB HEMETOLOGY METHOD 11/15/2024 7:22 AM [facility] NRBC Absolute 0.00 <0.10 K/mcL LAB HEMETOLOGY METHOD 11/15/2024 7:22 AM [facility] Neutrophils Relative 83.6 % LAB HEMETOLOGY METHOD 11/15/2024 7:22 AM [facility] Lymphocytes Relative 6.8 % LAB HEMETOLOGY METHOD 11/15/2024 7:22 AM [facility] Monocytes Relative 5.8 % LAB HEMETOLOGY METHOD 11/15/2024 7:22 AM [facility] Eosinophils Relative 3.3 % LAB HEMETOLOGY METHOD 11/15/2024 7:22 AM [facility] Basophils Relative 0.2 % LAB HEMETOLOGY METHOD 11/15/2024 7:22 AM [facility] Immature Granulocytes Relative 0.3 % LAB HEMETOLOGY METHOD 11/15/2024 7:22 AM [facility] Neutrophils Absolute 7.33(H) 1.50 - 7.00 K/mcL LAB HEMETOLOGY METHOD 11/15/2024 7:22 AM [facility] Lymphocytes Absolute 0.60(L) 1.00 - 5.00 K/mcL LAB HEMETOLOGY METHOD 11/15/2024 7:22 AM [facility] Monocytes Absolute 0.51 0.20 - 1.00 K/mcL LAB HEMETOLOGY METHOD 11/15/2024 7:22 AM EST [facility] Eosinophils Absolute 0.29 0.00 - 0.50 K/mcL LAB HEMETOLOGY METHOD 11/15/2024 7:22 AM EST [facility] Basophils Absolute 0.02 0.00 - 0.20 K/mcL LAB HEMETOLOGY METHOD 11/15/2024 7:22 AM EST [facility] Immature Granulocytes Absolute 0.03 0.00 - 0.03 K/mcL LAB HEMETOLOGY METHOD 11/15/2024 7:22 AM EST [facility] Blood Venous blood specimen / Unknown Venipuncture / Unknown 11/15/2024 6:27 AM EST 11/15/2024 7:05 AM EST Demarcus Villalobos MD LAB BLOOD ORDERABLES Performing Organization Address [facility]/ZIP Co de Phone Number [facility] [address] [place] [address], * Magnesium (11/15/2024 6:27 AM EST) Magnesium 2.0 1.9 - 2.6 mg/dL LAB CHEMISTRY METHOD 11/15/2024 8:39 AM [facility] Blood Venous blood specimen / Unknown Venipuncture / Unknown 11/15/2024 6:27 AM EST 11/15/2024 7:04 AM EST Demarcus Villalobos MD LAB BLOOD ORDERABLES [facility] [address] [place] [address], [place] [phone] * (ABNORMAL) Basic metabolic panel (11/15/2024 6:27 AM EST) Sodium 139 133 - 145 mmol/L LAB CHEMISTRY METHOD 11/15/2024 8:43 AM EST [facility] Potassium 3.6 3.5 - 5.5 mmol/L LAB CHEMISTRY METHOD 11/15/2024 8:43 AM [facility] Chloride 108 96 - 110 mmol/L LAB CHEMISTRY METHOD 11/15/2024 8:43 AM [facility] CO2 24 21 - 32 mmol/L LAB CHEMISTRY METHOD 11/15/2024 8:43 AM [facility] Anion Gap 7 3 - 11 LAB CHEMISTRY METHOD 11/15/2024 8:43 AM [facility] Glucose 114(H) 70 - 100 mg/dL LAB CHEMISTRY METHOD 11/15/2024 8:43 AM [facility] BUN 22 5 - 25 mg/dL LAB CHEMISTRY METHOD 11/15/2024 8:43 AM [facility] Creatinine 0.77 0.50 - 1.10 mg/dL LAB CHEMISTRY METHOD 11/15/2024 8:43 AM [facility] eGFR 80 >=60 mL/min/1. 73m2 LAB CHEMISTRY METHOD 11/15/2024 8:43 AM [facility] Comment:Calculation based on the??Chronic Kidney Disease Epidemiology Collaboration (CKD-EPI) equation refit??without adjustment for race. BUN/Creatinine Ratio 28.6 LAB CHEMISTRY METHOD 11/15/2024 8:43 AM [facility] Calcium 8.5 8.5 - 10.5 mg/dL LAB CHEMISTRY METHOD 11/15/2024 8:43 AM [facility] Blood Venous blood specimen / Unknown Venipuncture / Unknown 11/15/2024 6:27 AM EST 11/15/2024 7:04 AM EST Demarcus Villalobos MD LAB BLOOD ORDERABLES [facility] [address] [place] [address], * Activated partial thromboplastin time (11/14/2024 8:37 PM EST) aPTT 32.2 24.1 - 39.3 sec LAB COAGULATION METHOD 11/14/2024 9:02 PM EST [facility] Blood Venous blood specimen / Unknown Venipuncture / Unknown 11/14/2024 8:37 PM EST 11/14/2024 8:49 PM EST Hardik DANIELS LAB BLOOD ORDERABLES Performing Organization Address [facility]/ZIP Co de Phone Number [facility] [address] [place] [address], [place] [phone] * Prothrombin time with INR (11/14/2024 8:37 PM EST) Pathologist [facility] Protime 12.0 10.6 - 13.9 sec LAB COAGULATION METHOD 11/14/2024 9:02 PM EST [facility] INR 1.0 LAB COAGULATION METHOD 11/14/2024 9:02 PM EST [facility] Blood Venous blood specimen / Unknown Venipuncture / Unknown 11/14/2024 8:37 PM EST 11/14/2024 8:49 PM EST Hardik DANIELS LAB BLOOD ORDERABLES Performing Organization Address [facility] Co de Phone Number [facility] [address] [place] [address], * CT Head wo Contrast (11/14/2024 2:27 [...] Signed Date: 11/14/2024 14:51 ET Workstation ID: [id number] Transcribed By: Self Edit Transcribed Date: 11/14/2024 [...] Signed Date: 11/14/2024 14:51 ET Workstation ID: [id number] Transcribed By: Self Edit Transcribed Date: 11/14/2024 14:41 ET Aleida R Hevey PA IMG CT PROCEDURES * (ABNORMAL) Culture urine (11/14/2024 1:58 PM EST) Culture, Urine >100,000 CFU/mL Escherichia coli ESBL(A) CLINT 11/17/2024 11:51 AM EST [facility] Comment:THIS ORGANISM IS [...] DANIELS LAB MICROBIOLOGY - G ENERAL ORDERABLES [facility] [address] [place] [address], * Estrada urine culture tube (11/14/2024 1:58 PM EST) Extra Tube Hold for add-ons. 11/14/2024 4:02 PM [facility] Comment:Auto resulted. Urine Urinary bladder structure / Unknown Non-blood Collection / Unknown 11/14/2024 1:58 PM EST 11/14/2024 2:20 PM EST Aleida DANIELS LAB URINE ORDERABLES [facility] [address] [place] [address], [place] [phone] * (ABNORMAL) Urinalysis with reflex microscopic and culture (11/14/2024 1:58 PM EST) [facility] [place] Urine 1.021 1.003 - 1.030 LAB URINALYSIS - AUTOMATED METHOD 11/14/2024 2:32 PM [facility] pH, Urine 6.0 5.0 - 8.0 pH LAB URINALYSIS - AUTOMATED METHOD 11/14/2024 2:32 PM [facility] Leukocytes, Urine Small(A) Negative LAB URINALYSIS - AUTOMATED METHOD 11/14/2024 2:32 PM [facility] Nitrite, Urine Negative Negative LAB URINALYSIS - AUTOMATED METHOD 11/14/2024 2:32 PM [facility] Protein, Urine 30(A) <=Trace mg/dL LAB URINALYSIS - AUTOMATED METHOD 11/14/2024 2:32 PM [facility] Glucose, Urine Negative Negative mg/dL LAB URINALYSIS - AUTOMATED METHOD 11/14/2024 2:32 PM [facility] Ketones, Urine Trace(A) Negative mg/dL LAB URINALYSIS - AUTOMATED METHOD 11/14/2024 2:32 PM [facility] Urobilinogen , Urine 1.0 0.2 - 1.0 mg/dL LAB URINALYSIS - AUTOMATED METHOD 11/14/2024 2:32 PM [facility] Bilirubin, Urine Negative Negative LAB URINALYSIS - AUTOMATED METHOD 11/14/2024 2:32 PM [facility] Blood, Urine Moderate(A) Negative LAB URINALYSIS - AUTOMATED METHOD 11/14/2024 2:32 PM [facility] RBC, Urine 9.2(H) 0 - 4 /HPF LAB URINALYSIS - AUTOMATED METHOD 11/14/2024 2:32 PM [facility] WBC, Urine 28.1(H) 0 - 4 /HPF LAB URINALYSIS - AUTOMATED METHOD 11/14/2024 2:32 PM [facility] Squamous Epithelial, Urine 37 0 - 60 /LPF LAB URINALYSIS - AUTOMATED METHOD 11/14/2024 2:32 PM [facility] Bacteria, Urine Many(A) Negative /HPF LAB URINALYSIS - AUTOMATED METHOD 11/14/2024 2:32 PM [facility] Hyaline Casts, Urine 0.8 0 - 3 /LPF LAB URINALYSIS - AUTOMATED METHOD 11/14/2024 2:32 PM [facility] Urine Urinary bladder structure / Unknown Non-blood Collection / Unknown 11/14/2024 1:58 PM EST 11/14/2024 2:20 PM EST Aleida DANIELS LAB URINE ORDERABLES [facility] [address] [place] [address], * CT Lower Extremity wo Contrast Left [...] Signed Date: 11/14/2024 12:30 ET Workstation ID: [id number] Transcribed By: Self Edit Transcribed Date: 11/14/2024 [...] Signed Date: 11/14/2024 12:30 ET Workstation ID: [id number] Transcribed By: Self Edit Transcribed Date: 11/14/2024 12:26 ET Aleida DANIELS IMG CT PROCEDURES * Troponin I high sensitivity (11/14/2024 11:25 AM EST) High Sensitivity Troponin I 10 <=54 ng/L LAB CHEMISTRY METHOD 11/14/2024 12:49 PM EST [facility] Blood Venous blood specimen / Unknown Venipuncture / Unknown 11/14/2024 11:25 AM EST 11/14/2024 11:56 AM EST Narrative [facility] - 11/14/2024 12:49 PM EST High levels of biotin in samples may falsely decrease hsTroponin values. ??Use caution when interpreting hsTroponin results in patients taking biotin who exhibit renal impairment (eGFR <60) or in patients taking more than 20 mg/day of biotin. Aleida DANIELS LAB BLOOD ORDERABLES Performing Organization Address City/State/[facility] Co de Phone Number [facility] [address] [place] [address], * XR Chest 1 View (11/14/2024 11:03 AM EST) Anatomical Region Laterality Modality Body Radiographic Jalyn ging 11/14/2024 11:0 8 AM EST Impressions 11/14/2024 11:08 AM EST No acute findings. -------- FINAL REPORT -------- Dictated By: Vinayak Austin Dictated Date: 11/14/2024 11:08 ET Assigned Physician: Vinayak Austin Reviewed and Electronically Signed By: Vinayak Austin Signed Date: 11/14/2024 11:08 ET Workstation ID: [id number] Transcribed By: Self Edit Transcribed Date: 11/14/2024 [...] Signed Date: 11/14/2024 11:08 ET Workstation ID: [id number] Transcribed By: Self Edit Transcribed Date: 11/14/2024 [...] Signed Date: 11/14/2024 11:08 ET Workstation ID: [id number] Transcribed By: Self Edit Transcribed Date: 11/14/2024 [...] Signed Date: 11/14/2024 11:08 ET Workstation ID: [id number] Transcribed By: Self Edit Transcribed Date: 11/14/2024 [...] Signed Date: 11/14/2024 10:36 ET Workstation ID: [id number] Transcribed By: Self Edit Transcribed Date: 11/14/2024 [...] Signed Date: 11/14/2024 10:36 ET Workstation ID: [id number] Transcribed By: Self Edit Transcribed Date: 11/14/2024 10:30 ET Aledia DANIELS IMG CT PROCEDURES * (ABNORMAL) Thyroid stimulating hormone (11/14/2024 9:58 AM EST) [facility] TSH 48.69(H) 0.40 - 4.00 mcIU/mL LAB CHEMISTRY METHOD 11/15/2024 6:35 AM EST [facility] Blood Venous blood specimen / Unknown Venipuncture / Unknown 11/14/2024 9:58 AM EST 11/14/2024 10:25 AM EST Demarcus Villalobos MD LAB BLOOD ORDERABLES [facility] [address] [place] [address], * (ABNORMAL) CBC auto differential (11/14/2024 9:58 AM EST) [facility] WBC 11.6(H) 4.8 - 10.8 K/mcL LAB HEMETOLOGY METHOD 11/14/2024 10:32 AM EST [facility] RBC 4.10 3.80 - 4.80 M/mcL LAB HEMETOLOGY METHOD 11/14/2024 10:32 AM EST [facility] Hemoglobin 12.3 11.5 - 16.0 g/dL LAB HEMETOLOGY METHOD 11/14/2024 10:32 AM EST [facility] Hematocrit 38.2 35.0 - 47.0 % LAB HEMETOLOGY METHOD 11/14/2024 10:32 AM [facility] MCV 94.1 79.0 - 98.0 FL LAB HEMETOLOGY METHOD 11/14/2024 10:32 AM [facility] MCH 30.3 27.0 - 32.0 pcg LAB HEMETOLOGY METHOD 11/14/2024 10:32 AM [facility] MCHC 32.2 32.0 - 37.0 g/dL LAB HEMETOLOGY METHOD 11/14/2024 10:32 AM [facility] RDW 15.2(H) 11.0 - 15.0 % LAB HEMETOLOGY METHOD 11/14/2024 10:32 AM [facility] Platelets 214 130 - 400 K/mcL LAB HEMETOLOGY METHOD 11/14/2024 10:32 AM [facility] MPV 10.4 7.0 - 11.0 FL LAB HEMETOLOGY METHOD 11/14/2024 10:32 AM [facility] NRBC 0.0 <1.0 % LAB HEMETOLOGY METHOD 11/14/2024 10:32 AM [facility] NRBC Absolute 0.00 <0.10 K/mcL LAB HEMETOLOGY METHOD 11/14/2024 10:32 AM [facility] Neutrophils Relative 88.1 % LAB HEMETOLOGY METHOD 11/14/2024 10:32 AM [facility] Lymphocytes Relative 4.8 % LAB HEMETOLOGY METHOD 11/14/2024 10:32 AM [facility] Monocytes Relative 6.4 % LAB HEMETOLOGY METHOD 11/14/2024 10:32 AM [facility] Eosinophils Relative 0.0 % LAB HEMETOLOGY METHOD 11/14/2024 10:32 AM [facility] Basophils Relative 0.1 % LAB HEMETOLOGY METHOD 11/14/2024 10:32 AM EST [facility] Immature Granulocytes Relative 0.6 % LAB HEMETOLOGY METHOD 11/14/2024 10:32 AM EST [facility] Neutrophils Absolute 10.24(H) 1.50 - 7.00 K/mcL LAB HEMETOLOGY METHOD 11/14/2024 10:32 AM EST [facility] Lymphocytes Absolute 0.56(L) 1.00 - 5.00 K/mcL LAB HEMETOLOGY METHOD 11/14/2024 10:32 AM EST [facility] Monocytes Absolute 0.74 0.20 - 1.00 K/mcL LAB HEMETOLOGY METHOD 11/14/2024 10:32 AM EST [facility] Eosinophils Absolute 0.00 0.00 - 0.50 K/mcL LAB HEMETOLOGY METHOD 11/14/2024 10:32 AM EST [facility] Basophils Absolute 0.01 0.00 - 0.20 K/mcL LAB HEMETOLOGY METHOD 11/14/2024 10:32 AM EST [facility] Immature Granulocytes Absolute 0.07(H) 0.00 - 0.03 K/mcL LAB HEMETOLOGY METHOD 11/14/2024 10:32 AM EST [facility] Blood Venous blood specimen / Unknown Venipuncture / Unknown 11/14/2024 9:58 AM EST 11/14/2024 10:25 AM EST Aleida DANIELS LAB BLOOD ORDERABLES [facility] [address] [place] [address], * (ABNORMAL) Comprehensive metabolic panel (11/14/2024 9:58 AM EST) Sodium 137 133 - 145 mmol/L LAB CHEMISTRY METHOD 11/14/2024 11:56 AM EST [facility] Potassium 3.6 3.5 - 5.5 mmol/L LAB CHEMISTRY METHOD 11/14/2024 11:56 AM [facility] Chloride 107 96 - 110 mmol/L LAB CHEMISTRY METHOD 11/14/2024 11:56 AM [facility] CO2 25 21 - 32 mmol/L LAB CHEMISTRY METHOD 11/14/2024 11:56 AM [facility] Anion Gap 5 3 - 11 LAB CHEMISTRY METHOD 11/14/2024 11:56 AM [facility] Glucose 130(H) 70 - 100 mg/dL LAB CHEMISTRY METHOD 11/14/2024 11:56 AM [facility] BUN 24 5 - 25 mg/dL LAB CHEMISTRY METHOD 11/14/2024 11:56 AM [facility] Creatinine 0.96 0.50 - 1.10 mg/dL LAB CHEMISTRY METHOD 11/14/2024 11:56 AM [facility] eGFR 61 >=60 mL/min/1. 73m2 LAB CHEMISTRY METHOD 11/14/2024 11:56 AM [facility] Comment:Calculation based on the??Chronic Kidney Disease Epidemiology Collaboration (CKD-EPI) equation refit??without adjustment for race. BUN/Creatinine Ratio 25.0 LAB CHEMISTRY METHOD 11/14/2024 11:56 AM [facility] Calcium 8.9 8.5 - 10.5 mg/dL LAB CHEMISTRY METHOD 11/14/2024 11:56 AM [facility] AST (SGOT) 52(H) 10 - 42 unit/L LAB CHEMISTRY METHOD 11/14/2024 11:56 AM [facility] Comment:Results verified by repeat testing ALT (SGPT) 40 10 - 60 unit/L LAB CHEMISTRY METHOD 11/14/2024 11:56 AM [facility] Comment:Results verified by repeat testing Alkaline Phosphatase 81 42 - 121 unit/L LAB CHEMISTRY METHOD 11/14/2024 11:56 AM [facility] Total Protein 6.8 6.0 - 8.0 g/dL LAB CHEMISTRY METHOD 11/14/2024 11:56 AM EST [facility] Albumin 3.9 3.2 - 5.0 g/dL LAB CHEMISTRY METHOD 11/14/2024 11:56 AM EST [facility] Total Bilirubin 1.0 0.0 - 1.4 mg/dL LAB CHEMISTRY METHOD 11/14/2024 11:56 AM EST [facility] Blood Venous blood specimen / Unknown Venipuncture / Unknown 11/14/2024 9:58 AM EST 11/14/2024 10:25 AM EST Aleida DANIELS LAB BLOOD ORDERABLES Performing Organization Address [facility] Co de Phone Number [facility] [address] [place] [address], * Troponin I high sensitivity (11/14/2024 9:58 AM EST) [facility] High Sensitivity Troponin I 10 <=54 ng/L LAB CHEMISTRY METHOD 11/14/2024 10:55 AM EST [facility] Blood Venous blood specimen / Unknown Venipuncture / Unknown 11/14/2024 9:58 AM EST 11/14/2024 10:25 AM EST Narrative [facility] - 11/14/2024 10:55 AM EST High levels of biotin in samples may falsely decrease hsTroponin values. ??Use caution when interpreting hsTroponin results in patients taking biotin who exhibit renal impairment (eGFR <60) or in patients taking more than 20 mg/day of biotin. Aleida DANIELS LAB BLOOD ORDERABLES Performing Organization Address City/[facility]/ZIP Co de Phone Number [facility] [address] [place] [address], * (ABNORMAL) Creatine kinase (11/14/2024 9:58 AM EST) [facility] Total CK 668(H) 22 - 269 unit/L LAB CHEMISTRY METHOD 11/14/2024 11:20 AM EST [facility] Blood Venous blood specimen / Unknown Venipuncture / Unknown 11/14/2024 9:58 AM EST 11/14/2024 10:25 AM EST Aleida DANIELS LAB BLOOD ORDERABLES Performing Organization Address [facility] de Phone Number [facility] [address] [place] [address], * ECG 12 lead (11/14/2024 9:41 AM EST) [facility] Ventricular Rate ECG 80 BPM GEMUSE Atrial Rate 80 BPM GEMUSE P-R Interval 126 ms GEMUSE QRS Duration 80 ms GEMUSE Q-T Interval 430 ms GEMUSE QTc 495 ms GEMUSE R [place] 31 degrees GEMUSE T [place] -53 degrees GEMUSE ECG Interpretation Normal sinus rhythm Nonspecific T wave abnormality Abnormal ECG No previous ECGs available Confirmed by HELADIO SIMMONS ([id number]) on 11/14/2024 5:33:44 PM GEMUSE 11/14/2024 9:41 AM EST 11/14/2024 5:33 PM EST Román Guzman MD ECG ORDERABLES Performing Organization Address [facility] de Phone Number GEMUSE * VT CRITICAL CARE EACH ADDITIONAL 30 MINUTES, [place] CRITICAL CARE EACH ADDITIONAL 30 MINUTES, [place] CRITICAL CARE EACH ADDITIONAL 30 MINUTES (11/14/2024 [...] O RDERABLES * ECG-Annotated (11/14/2024) Provider Onbase ECG ORDERABLES documented in this encounter Visit [...] 3 mg 3 mg, oral, Once, On 11/15/24 at 2215, For 1 dose Given 11/15/2024 [...] AM EST 40 mg perflutren lipid microsphere (DEFINJogli) 1.3 mL in sodium chloride 0.9% 8.7 [...] Zhu RN) 2144 (Given - Provider: Bridgett Guevara, JAMMIE) 2100 [...] Zhu RN) 0612 (Given - Provider: Bridgett Guevara RN) polyethylene glycol (MIRALAX) packet 17 g 17 g, oral, Daily, First dose on Sun11/14/24 at 1257, Bowel Regimen - for prevention of constipation 0849 (Given - Provider: Yolanda Carson RN) 0920 (Given - Provider: Joseph Arita RN) [...] Yolanda Carson RN)2129 (Given - Provider: Amara Zhu, JAMMIE) 0920 (Given - Provider: Joseph Arita RN)2153 [...] 5 mg 1 11/17/2024 Oxygen Therapy, Adult 1 11/17/2024 ceFAZolin (ANCEF) 2 g in luis [...] Ordered Date OXYGEN THERAPY, ADULT 1 11/17/2024 PATENT ENGINEER Count Last Ordered Date First Orde red Date PATENT ENGINEER SWALLOW EVAL AND TREAT 1 11/14/2024 IV [...] documented as of this encounter Care Teams Medical Payment Poster Relationship Specialty Start Date End Date Garcia Droan MD [address] [place] [id number] PCP - General Internal Medicine 01/11/22 documented as of this encounter
[2024-12-01 06:29] LABS: Basophils Percent Auto 0.5 % (0-2); Eosinophils Absolute Auto 0.3 X10*3/uL (0.0-0.4); Eosinophils Percent Auto 3.9 % (0-4); Hematocrit 28.4 % (37.0-47.0); Hemoglobin 9.2 g/dl (12.0-16.0); Imm Gran Abs Auto 0.04 X10*3/uL (0.00-0.03); Imm Gran Pct Auto 0.6 % (0.0-0.4); Lymphocytes Absolute Auto 1.4 X10*3/uL (1.2-4.9); Lymphocytes Percent Auto 21.2 % (20-40); Mean Corpuscular HGB Conc 32.4 g/dl (31.0-35.0); Mean Corpuscular Hemoglobin 31.4 pg (27.0-33.0); Mean Corpuscular Volume 96.9 fL (80.0-98.0); Mean Platelet Volume 9.1 fL (9.4-12.3); Monocytes Absolute Auto 0.7 X10*3/uL (0.1-1.2); Neutrophils Absolute Auto 4.2 x10*3/uL (2.0-8.3); Neutrophils Percent Auto 63.8 % (45-73); Platelet Count 583 X10*3/uL (160-400); Red Blood Count 2.93 X10*6/uL (4.20-5.50); Red Cell Distribution Width 17.1 % (11.0-16.0); White Blood Count 6.6 X10*3/uL (4.8-10.8)
[2024-12-01 07:21] LABS: Alanine Aminotransferase 23 U/L (0-31); Albumin Level 3.5 g/dL (3.5-5.0); Alkaline Phosphatase 126 U/L (39-117); Anion Gap 16 (12-20); Aspartate Amino Transferase 32 U/L (5-31); Bilirubin Total 0.4 mg/dL (0.0-1.0); Blood Urea Nitrogen 19 mg/dL (9-16); Calcium 9.2 mg/dL (8.4-10.2); Carbon Dioxide 21 mmol/L (22-29); Chloride 110 mmol/L (96-108); Estimated Glomerular Filt Rate > 60; Glucose Random 73 mg/dL (60-115); Potassium 4.5 mmol/L (3.3-5.1); Sodium 142 mmol/L (135-145); Total Protein 6.8 g/dL (6.5-8.0)
== END 2024-12-01 06:19 | disposition home or self-care (01) ==
LOC: HO.MMNH1L 06:18
PROVIDERS: Visit Provider Nurse Practitioner
DX: F41.1 Generalized anxiety disorder (principal)
CPT/HCPCS: 36415; 80053; 85025

== ENCOUNTER 2024-12-08 06:02 | Outpatient (REF) | payer MEDICARE, SELFPAY ==
[2024-12-08 05:42] LABS: MANUAL DIFF FLAG NO
[2024-12-08 06:12] LABS: Basophils Percent Auto 0.5 % (0-2); Eosinophils Absolute Auto 0.3 X10*3/uL (0.0-0.4); Eosinophils Percent Auto 5.5 % (0-4); Hematocrit 29.8 % (37.0-47.0); Hemoglobin 9.6 g/dl (12.0-16.0); Imm Gran Abs Auto 0.01 X10*3/uL (0.00-0.03); Imm Gran Pct Auto 0.2 % (0.0-0.4); Lymphocytes Absolute Auto 1.6 X10*3/uL (1.2-4.9); Lymphocytes Percent Auto 26.8 % (20-40); Mean Corpuscular HGB Conc 32.2 g/dl (31.0-35.0); Mean Corpuscular Hemoglobin 32.1 pg (27.0-33.0); Mean Corpuscular Volume 99.7 fL (80.0-98.0); Monocytes Absolute Auto 0.7 X10*3/uL (0.1-1.2); Monocytes Percent Auto 12.1 % (2-11); Neutrophils Absolute Auto 3.4 x10*3/uL (2.0-8.3); Neutrophils Percent Auto 54.9 % (45-73); Platelet Count 366 X10*3/uL (160-400); Red Blood Count 2.99 X10*6/uL (4.20-5.50); Red Cell Distribution Width 17.1 % (11.0-16.0); White Blood Count 6.1 X10*3/uL (4.8-10.8)
--- OUTSIDE RECORDS SUMMARY | 2024-12-08 06:16 | XMS_ITS | Encounter Summary ---
Author Organization [facility] Address [address] [place] [address] Care Team Providers Care Laborer Pie Bakery Name Role Phone Garcia Doran MD Primary Care Provider [phone] Reason for Visit * Reason Comments Subdural Hematoma Follow up w/Head CT results Encounter Details Date Type Department Care Team ([facility] Contact Info) Description 12/05/2024 11:15 AM EST Office Visit Neurosurgery [place] [facility] [address] [facility] [address] [place] [address] [phone] Ashley Davis PA [address] [facility], [address] [place] [address] Acute subdural hematoma (CMS/HCC) (Primary Dx) Social History Tobacco Use Types [...] for your loved ones. For example, child and family therapist or elderly care for an older adult? [...] ed Physical Abuse 11/14/2024 Verbal Abuse 11/14/2024 Comments No Sex and Gender Information Value Date Recorded Sex Assigned at Not on file Legal Sex Female 1:40 PM EDT Gender Identity Not on file Sexual Orientation Not on file documented as of this encounter Last Filed Vital Signs Vital Sign Reading Time Taken Comments Blood Pressure - - Pulse - - Temperature - - Respiratory Rate - - Oxygen Saturation - - Inhaled Oxygen Concentration - - Weight 65.3 kg (144 lb) 12/05/2024 11:02 AM EST Height 165.1 cm (5' 5 ) 12/05/2024 11:02 AM EST Body Mass Index 23.96 12/05/2024 11:02 AM EST documented in this encounter Functional Status * Are you deaf or do you have serious difficulty hearing? Answer Date of Assessment Author No 11/14/2024 4:03 PM Tiffanie Cano RN * Are you blind or do you have serious difficulty seeing, even when wearing glasses? Answer Date of Assessment Author No 11/14/2024 4:03 PM Tiffanie Cano RN * Do you have serious difficulty walking or climbing stairs? Answer Date of Assessment Author No 11/14/2024 4:03 PM Tiffanie Cano RN * Do you have serious difficulty dressing or bathing? Answer Date of Assessment Author No 11/14/2024 4:03 PM Tiffanie Cano RN * Because of a physical, mental, or emotional condition, do you have serious difficulty doing errandsalone such as visiting the doctor? Answer Date of Assessment Author No 11/14/2024 4:03 PM Tiffanie Cano RN documented as of this encounter Mental Status * Because of a physical, mental, or emotional condition, do you have serious difficulty concentrating, remembering, or making decisions? (5 years old or older) Answer Entry Date Author No 11/14/2024 4:03 PM Tiffanie Cano RN documented in this encounter Progress Notes * FRANCES Bee - 12/05/2024 12:36 PM ESTAssociated Problem(s): Acute subdural hematoma (CMS/HCC) Patient was seen in the hospital for right subdural hematoma after a fall, is s/p left hip hemiarthroplasty by Dr Coon on 11/17/24, postop was put on subcu heparin to prevent blood clot, but patient and family aware there was risk of increased subdural hematoma on blood thinners. Overall patient has been doing well at [facility]hab, [facility], she has been doing physical therapy, walking with a walker, they plan to discharge her home on Sunday next week. Originally she was having some stuttering, butseems to have resolved, her states her speech is at her baseline/normal. She is eating well, no nausea or vomiting. Patient denies headaches, weakness, speech issues, fevers, however when we had her daughter on the phone to discuss the plan, she mentioned her mom gets frequent headaches, usually related to sinus issues or no caffeine, her mom usually ignores the headaches. Patient agreed with this statement. She has been taking Tylenol for pain per patient and . Patient did not come with any paperwork from rehab, no med list. Patient had head CT this morning that shows a more chronic subdural fluid collection, it is measuring slightly larger than prior study, 15 mm, previously 10 mm. There is increased midline shift and mass effect associated with the subdural collection. I reviewed the head CT images with the patient and her on the computer, Dr. Damico reviewed them today as well. No acute hemorrhage noted. Ms. Rios has slightly increased right subdural hematoma with increased midline shift and mass effect, Dr. Damico offered her right bur hole drainage of subdural hematoma. We discussed pros and cons of giving it more time, waiting and follow- up CAT scans versus surgery. I will reach out to Dr. Coon(orthopedics) to see if she would be cleared to stop the subcu heparin which can contribute to subdu ral hematoma and would need to be stopped for surgery. Patient and her family think they would liketo proceed with bur hole drainage of subdural hematoma, risks and benefits discussed in detail, postop expectations/restrictions. All questions answered. * FRANCES Bee - 12/05/2024 11:15 AM EST NEUROSURGERY OFFICE VISIT Date of Visit: 12/05/2024 Referring Physician: Garcia Doran MD Primary Care Physician: Garcia Doran MD RE: Isabeal Rios : 1945 Isabela Rios was seen in the hospital for right subdural hematoma after a fall, is s/p left hip hemiarthroplasty by Dr Coon on 11/17/24, postop was put on subcu heparin to prevent blood clot, but patient and family aware there was risk of increased subdural hematoma on blood thinners. Overall patient has been doing well at [facility]hab, [facility], she has been doing physical therapy, walking with a walker, they plan to discharge her home on Sunday next week. Originally she was having some stuttering, but seems to have resolved, her states her speech is at her baseline/normal. She is eating well, no nausea or vomiting. Patient denies headaches, weakness, speech issues, fevers, however when we had her daughter on the phone to discuss the plan, she mentioned her mom gets frequent headaches, usually related to sinus issues or no caffeine, her mom usually ignores the headaches. Patient agreed with this statement. She has been taking Tylenol for pain per patient and . Patient didnot come with any paperwork from rehab, no med list. Past Medical History: Diagnosis Date Anxiety 06/11/2017 Depression 07/06/2017 DX:Depression HTN (hypertension) 06/11/2017 Hypothyroidism 06/11/2017 Osteopenia 07/06/2017 Past Surgical History: Procedure Laterality Date HIP FRACTURE SURGERY 11/17/2024 Left hip hemiarthroplasty performed by Dr Shaggy QUIROZDOM TOOTH EXTRACTION Current Outpatient Medications Medication Instructions amLODIPine (NORVASC) 2.5 mg, oral, Daily citalopram (CeleXA) 20 mg tablet Please take 1.5 tablet daily ferrous sulfate 325 mg (65 mg elemental iron) tablet Take by mouth. heparin (UFH) 5,000 Units, subcutaneous, Every 12 hours scheduled levothyroxine (SYNTHROID, LEVOTHROID) 75 mcg, oral, Daily melatonin 3 mg, oral, Nightly multivitamin (MULTIPLE VITAMINS ORAL) Take by mouth. senna-docusate (PERICOLACE) 8.6-50 mg per tablet 2 tablets, oral, Nightly EXAM: On exam, she is awake and alert. Speech and comprehension is intact. Respirations are unlabored. Cranial nerves II through XII grossly intact. Motor exam reveals good strength to resistance bilaterally 5/5 UEs and LEs, reflexes WNL, no hyperreflexia. Patient came up in a wheelchair. IMAGING: Narrative & Impression Noncontrast head CT. 12/05/2024 HISTORY: follow up subdural. COMPARISON: 11/21/24. FINDINGS: BRAIN: Low-attenuation subdural fluid collection along the right convexity. This is larger than on the previous study, measuring 1.5 mm in maximal thickness, previously 10 mm. There were areas of hyperattenuation within the collection on the previous study, suggestive of acute on subacute blood products; the collection is homogeneously low in attenuation today. Increasing associated leftward midline shift, now measuring 5 mm. No mass. Unchanged size and configuration of the ventricular system. Faint dystrophic calcifications of the globus pallidus bilaterally. Atherosclerotic calcifications of the carotid siphons. ORBITS: Lens implants and calcified senile scleral plaques. SINUSES/MASTOIDS: Small amount of debris in one of the posterior right ethmoid air cells. Trace layering fluid in the sphenoid sinus. CALVARIUM: Hyperostosis frontalis interna. OTHER: The skull base soft tissues are normal. IMPRESSION: Enlarging subdural fluid collection along the right cerebral convexity compared with 11/21/2024. Increase in associated midline shift. Problem List Items Addressed This Visit Acute subdural hematoma (CMS/HCC) - Primary Patient was seen in the hospital for right subdural hematoma after a fall, is s/p left hip hemiarthroplasty by Dr Coon on 11/17/24, postop was put on subcu heparin to prevent blood clot, but patient and family aware there was risk of increased subdural hematoma on blood thinners. Overall patient has been doing well at [facility], [facility], she has been doing physical therapy, walking with a walker, they plan to discharge her home on Sunday next week. Originally she was having some stuttering, butseems to have resolved, her states her speech is at her baseline/normal. She is eating well, no nausea or vomiting. Patient denies headaches, weakness, speech issues, fevers, however when we had her daughter on the phone to discuss the plan, she mentioned her mom gets frequent headaches, usually related to sinus issues or no caffeine, her mom usually ignores the headaches. Patient agreed with this statement. She has been taking Tylenol for pain per patient and . Patient did not come with any paperwork from rehab, no med list. Patient had head CT this morning that shows a more chronic subdural fluid collection, it is measuring slightly larger than prior study, 15 mm, previously 10 mm. There is increased midline shift and mass effect associated with the subdural collection. I reviewed the head CT images with the patient and her on the computer, Dr. Damico reviewed them today as well. No acute hemorrhage noted. Ms. Rios has slightly increased right subdural hematoma with increased midline shift and mass effect, Dr. Damico offered her right bur hole drainage of subdural hematoma. We discussed pros and cons of giving it more time, waiting and follow- up CAT scans versus surgery. I will reach out to Dr. Coon(orthopedics) to see if she would be cleared to stop the subcu heparin which can contribute to subdu ral hematoma and would need to be stopped for surgery. Patient and her family think they would liketo proceed with bur hole drainage of subdural hematoma, risks and benefits discussed in detail, postop expectations/restrictions. All questions answered. All questions answered. she will call with any questions. Total time spent >35 minutes, time spent includes reviewing history, exam, imaging, plan, surgery discussion. 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
--- OUTSIDE RECORDS SUMMARY | 2024-12-08 06:16 | XMS_ITS | Encounter Summary ---
Author Organization [facility] Address [address] [place] [address] Care Team Providers Care Cork Cutter Name Role Phone aGrcia Doran MD Primary Care Provider [phone] Reason for Referral * Imaging (Routine) - Authorized Specialty Diagnoses / Procedures Referred By Contac t Referred To Contact Radiology Diagnoses Acute subdural hematoma (CMS/HCC) Procedures CT Head wo Contrast Hardik Nogueira PA [address] [address] Phone: tel: [facility] CT Scan [address] [place] [address] Phone: tel: Referral ID Status Reason Start Date Expiration Date V isits Requested Visits Authorized [id number] Authorized 11/21/2024 11/21/2025 1 1 Reason for Visit * Imaging (Routine) - Authorized Specialty Diagnoses / Procedures Referred By Contac t Referred To Contact Radiology Diagnoses Acute subdural hematoma (CMS/HCC) Procedures CT Head wo Contrast Hardik Nogueira PA [address] [address] Phone: tel: [facility] CT Scan [address] [place] [address] Phone: tel: Referral ID Status Reason Start Date Expiration Date V isits Requested Visits Authorized [id number] Authorized 11/21/2024 11/21/2025 1 1 Encounter Details Date Type Department Care Team (Latest Contact Info) Description 12/05/2024 9:48 AM EST - 12/05/2024 11:59 PM [facility] Hospital Encounter [facility] CT Scan [address] [place] [address] Acute subdural hematoma (CMS/HCC) Discharge Disposition: Home or Self Care Social History Tobacco Use Types Packs/Day Years [...] documented as of this encounter Functional Status * Are you [...] Tiffanie Cano RN documented in this encounter Medications at Time of Discharge amLODIPine (NORVASC) 2.5 mg tablet TAKE 1 TABLET BY MOUTH DAILY 100 tablet 1 11/26/2024 citalopram (CeleXA) 20 mg tablet Please take 1.5 tablet daily 135 tablet 1 09/03/2024 ferrous sulfate 325 mg (65 mg elemental iron) tablet Take by mouth. heparin sodium,porcine (heparin, UFH,) 5,000 unit/mL injectionIndications: Prophylaxis of Venous Thromboembolism Inject 1 mL (5,000 [...] 2 tablets by mouth at bedtime. 11/24/2024 documented as of this encounter Discharge Disposition Disposition Code Departure Means Destination Home or Self Care documented in this encounter Plan of Treatment Upcoming Encounters Date Type Department Care Team (Late st Contact Info) Description 03/06/2025 11:30 AM EDT Office Visit Watermaster - [facility] [address] [place] [address] Garcia Doran MD [address] [place] [address] documented as of this encounter Procedures Procedure Name Priority Date/Time Associated Diagnosis Comments CT HEAD WO CONTRAST Routine 12/05/2024 1 0:26 AM EST Acute subdural hematoma (CMS/HCC) documented in this encounter Results * CT Head wo Contrast (12/05/2024 10:26 AM EST) Anatomical Region Laterality Modality Head and Neck Computed Tomogra phy 12/05/2024 10:4 7 AM EST Impressions 12/05/2024 10:55 AM EST Enlarging subdural fluid collection along the right cerebral convexity compared with 11/21/2024. ??Increase in associated midline shift. A Expedited message has been communicated to the office of HARDIK NOGUEIRA via the [employer] System on 12/05/2024 10:52 AM, Message ID [id number]. -------- FINAL REPORT -------- Dictated By: Vinayak Austin Dictated Date: 12/05/2024 10:47 ET Assigned Physician: Vinayak Austin Reviewed and Electronically Signed By: Vinayak Austin Signed Date: 12/05/2024 10:55 ET Workstation ID: [id number] Transcribed By: Self Edit Transcribed Date: 12/05/2024 10:49 ET Narrative 12/05/2024 10:55 AM EST PROCEDURE: Noncontrast head CT. HISTORY: follow up subdural. COMPARISON: 11/21/24. TECHNIQUE: Noncontrast head CT with coronal and sagittal reformats. Dose length product: 809 mGy-cm. FINDINGS: BRAIN: Low-attenuation subdural fluid collection along the right convexity. ??This is larger than on the previous study, measuring 1.5 mm in maximal thickness, previously 10 mm. ??There were areas of hyperattenuation within the collection on the previous study, suggestive of acute on subacute blood products; the collection is homogeneously low in attenuation today. ??Increasing associated leftward midline shift, now measuring 5 mm. No mass. ??Unchanged size and configuration of the ventricular system. ??Faint dystrophic calcifications of the globus pallidus bilaterally. ??Atherosclerotic calcifications of the carotid siphons. ORBITS: Lens implants and calcified senile scleral plaques. SINUSES/MASTOIDS: Small amount of debris in one of the posterior right ethmoid air cells. ??Trace layering fluid in the sphenoid sinus. CALVARIUM: Hyperostosis frontalis interna. OTHER: The skull base soft tissues are normal. Procedure Note Vinayak Austin MD - 12/05/2024 PROCEDURE: Noncontrast head CT. HISTORY: follow up subdural. COMPARISON: 11/21/24. TECHNIQUE: Noncontrast head CT with coronal and sagittal reformats. Dose length product: 809 mGy-cm. FINDINGS: BRAIN: Low-attenuation subdural fluid collection along the rightconvexity. This is larger than on the previous study, measuring 1.5 mm inmaximal thickness, previously 10 mm. There were areas of hyperattenuationwithin the collection on the previous study, suggestive of acute onsubacute blood products; the collection is homogeneously low inattenuation today. Increasing associated leftward midline shift, nowmeasuring 5 mm. No mass. Unchanged size and configuration of the ventricular system.Faint dystrophic calcifications of the globus pallidus bilaterally.Atherosclerotic calcifications of the carotid siphons. ORBITS: Lens implants and calcified senile scleral plaques. SINUSES/MASTOIDS: Small amount of debris in one of the posterior rightethmoid air cells. Trace layering fluid in the sphenoid sinus. CALVARIUM: Hyperostosis frontalis interna. OTHER: The skull base soft tissues are normal. IMPRESSION: Enlarging subdural fluid collection along the right cerebral convexitycompared with 11/21/2024. Increase in associated midline shift. A Expedited message has been communicated to the office of HARDIK Amin the Out[employer] System on 12/05/2024 10:52 AM,Message ID [id number]. 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
--- OUTSIDE RECORDS SUMMARY | 2024-12-08 06:17 | XMS_ITS ---
Care Plan - [facility] Created on: December 08, 2024 Isabela Rios : 1945 Sex: Female Author Organization [facility] Address [address] [place] [address] Phone Care Team Providers Care Quarry Supervisor Name Role Phone [facility] Unavailable [phone] Christofer Torres MD Primary Care Provider [phone]
--- OUTSIDE RECORDS SUMMARY | 2024-12-08 06:17 | XMS_ITS ---
Author Organization [facility] Address [address] [place] [address] Phone Care Team Providers Care Lead Oxide Mill Tender Name Role Phone [facility] Unavailable [phone] Christofer Torres MD Primary Care Provider [phone] Plan of Treatment Future Appointments Date Time Location Provi petr Post Op Visit/Follow Up 12/09/2024 9:00AM [facility] Chinmay Wise MD Last Documented On 5 8:52AM ; [facility] Assessments Includes: Assessments for all patient encounters No Assessments Recorded Medical Equipment - Implanted Devices Includes: Current and historical Devices No Medical Equipment Recorded Medications Administered Includes: Administered Medications in patient's chart No Administered Medications Recorded Results Includes: Results from 12/08/2023 through 12/08/2024 No Results Recorded For Specified Dates History of Present Illness History of Present Illness not supported for this document type No History of Present Illness Recorded Social History No Social History Recorded - Smoking Status Unknown Procedures and Surgical History Includes: Procedures from 12/08/2023 through 12/08/2024 Procedures Code Diagnosis Performing Provider Service Location Service Date Treat Thigh Fracture (Left) [address] Fracture of unsp part of neck of left femur, init Sami Coon MD [facility] 11/17/2024 Last Documented On 5 12:44PM ; [facility] Medical History Includes: Medical History in patient's [...] Subscriber Relationship Effect niall Dates 1 - [facility] [id number] Isabela Rios Self Clinical Notes Includes: Signed Clinical Notes starting from 10/08/2022 No Clinical Notes Recorded
--- OUTSIDE RECORDS SUMMARY | 2024-12-08 06:17 | XMS_ITS | Encounter Summary ---
Author Organization [facility] Address [address] [place] [address] Care Team Providers Care Manager Name Role Phone Garcia Doran MD Primary Care Provider Reason for Visit * Reason Comments Fall Fall backwards from a standing position. Pain in legs bilateral, L shoulder. Onset Sunday 15:00(approx). Encounter Details Date Type Department Care Team (Late st Contact Info) Description 11/10/2024 2:00 PM EST Office Visit [facility] [place] [address] [place] [address] Edgar Esqueda PA [address] [place] [address] Fall, initial encounter (Primary Dx) Social History [...] for your loved ones. For example, child psychologist or elderly care for an older adult? Patient declined 08/31/2024 Education Answer Date Recorded Do you think completing more education or training, like finishing a GED, going to college, or learning a trade, would be helpful for you? No 08/31/2024 Employment and Income Answer Date Recor ded During the last four weeks, have you been actively looking for work? No 08/31/2024 Comments No Sex and Gender Information Value [...] in this encounter Ordered Prescriptions Prescription Sig Dispense Quantity Refills Last Filled Start Date End Date diclofenac (VOLTAREN) 1 % topical gel Apply 1 g topically 3 (three) times a day for 10 days. 60 g 11/10/2024 documented in this encounter Progress Notes * [...] of the arms or legs. Ice has been helpful. ROS: Remainder of the 12 point review [...] contain grammatical errors secondary to this software. Cosigned by Khadar Resendez MD at 11/11/2024 12:56 PM EST documented in this encounter Plan of Treatment Upcoming Encounters Date Type Department Care Team (Late st Contact Info) Description 03/06/2025 11:30 AM EDT Office Visit Adjunct Trainer - [facility] [address] [place] [address] Garcia Doran MD [address] [place] [address] documented as of this encounter Visit Diagnoses Diagnosis Fall, initial encounter- Primary documented in this encounter Additional Health Concerns Assessment Noted Time PHQ-9 Depression Total Score: 5 08/31/20 24 9:42 AM EST documented as of this encounter Care Teams Manager Relationship Specialty Start Date End Date Garcia Doran MD [address] [place] [id number] PCP - General Internal Medicine 01/11/22 documented as of this encounter
--- OUTSIDE RECORDS SUMMARY | 2024-12-08 06:17 | XMS_ITS | Encounter Summary ---
Author Organization [facility] Address [address] [place] [address] Care Team Providers Care Sliver Handler Name Role Phone Garcia Doran MD Primary Care Provider [phone] Reason for Visit * Auth/Cert Specialty Diagnoses / Procedures Referred By Gia t Referred To Contact Diagnoses Acute subdural hematoma (CMS/HCC) Procedures . Demarcus Villalobos MD [address] [place] [phone] Phone: tel: fax: [facility] Emergency [address] [place] [address] Phone: tel: Referral ID Status Reason Start Date Expiration Date Visits Re quested Visits Authorized [id number] 1 1 Encounter Details Date Type Department Care Team (Late st Contact Info) Description 11/17/2024 12:18 PM EST Anesthesia Event [facility] Main OR [address] [place] [address] Dequan Kelsey DO [address] [place] [phone] Franck Ha DO [address] [place] [phone] Anesthesia Record Procedure Summary Procedure Name Responsible Anesthesiologist Anesthesia Start Time Anesthesia Stop Time HEMIARTHROPLASTY LEFT HIP, CEMENTED, POSTERIOR APPROACH (Left: Hip) Dequan Kelsey, 11/17/24 1218 11/17/24 1454 Events Date Time [...] care for your loved ones. For example, manager child or elderly care for an older [...] Entry Date Author No 11/14/2024 4:03 PM EST Tiffanie Arce RN documented in this encounter Progress Notes * Dequan Kelsey DO - 11/18/2024 8:47 AM EST Patient: Isabela Rios Procedure Summary Date: 11/17/24 Room / Location: [facility] OR 03 / [facility] OR Anesthesia Start: 1217 Anesthesia Stop: 1453 Procedure: HEMIARTHROPLASTY LEFT HIP, CEMENTED, POSTERIOR APPROACH (Left: Hip) Diagnosis: Hip fracture requiring operative repair, left, closed, initial encounter ([facility]) Surgeons: Sami Coon MD Responsible Provider: Dequan [...] Description 03/06/2025 11:30 AM EDT Office Visit [facility] [address] [place] [address] Garcia Doran MD [address] [place] [address] documented as of this encounter Procedures Procedure [...] PMStop Time: 11/17/2024 12:46 PM Dequan Kelsey DO ANESTHESIA ORDERABLES Final Result documented in this encounter Visit Diagnoses Not [...] documented as of this encounter Care Teams Sliver Handler Relationship Specialty Start Date End Date Garcia Doran MD [address] [place] [address] [place] [phone] PCP - General Internal Medicine 01/11/22 documented as of this encounter
--- OUTSIDE RECORDS SUMMARY | 2024-12-08 06:17 | XMS_ITS | Encounter Summary ---
Author Organization [facility] Address [address] [place] [address] Care Team Providers Care Electric Welder Name Role Phone Garcia Doran MD Primary Care Provider [phone] Reason for Visit * Reason Comments Fall Altered Mental Status * Auth/Cert Specialty Diagnoses / Procedures Referred By Contgildardo t Referred To Contact Diagnoses Acute subdural hematoma (CMS/HCC) Procedures . Demarcus Villalobos MD [address] [place] [phone] Phone: tel: fax: [facility] Emergency [address] [place] [address] Phone: tel: Referral ID Status Reason Start Date Expiration Date Visits Re quested Visits Authorized [id number] 1 1 Encounter Details Date Type Department Care Team (Late st Contact Info) Description 11/14/2024 9:22 AM EST - 11/26/2024 7:07 PM EST Hospital Encounter [facility] Medical Surgical Unit [address] [place] [phone] Román Guzman MD [address] [address] Demarcus Villalobos MD [address] [place] [phone] MarilynnJoel DO [address] [place] [address] Bhavin Garcia MD [address] [place] [phone] Saundra Bucio MD [address] [place] [phone] Trace Burris MD [address] [place] [address] Subdural hematoma (CMS/HCC) (Primary Dx); Closed fracture of left hip, initial encounter (CMS/HCC); Syncope, unspecified syncope type; Hypoxia; Hip fracture requiring operative repair, left, closed, initial encounter (CMS/[facility]) Discharge Disposition: [facility] Facility Social History Tobacco Use Types Packs/Day [...] for your loved ones. For example, child adolescent care or elderly care for an older adult? [...] Tiffanie Cano RN documented in this encounter Discharge Summaries * Trace Burris MD - 11/24/2024 1:23 PM EST Images from the original note were not included. [facility] DISCHARGE SUMMARY Patient Information Isabela Rios : 1945 [79 y.o.] Admitting Provider Demarcus Villalobos MD Discharge Provider Trace Burris MD Primary Care Physician Garcia Doran MD Admission Date 11/14/2024 Discharge Date 11/26/2024 Summary of Hospital Problems Primary Discharge Diagnosis: Acute subdural hematoma (CMS/HCC) Secondary Discharge Diagnosis: Left hip fracture Discharge Disposition [facility] Facility Code Status at Discharge: Prior Hospital Course Summary Presenting Problem/History of Present Illness Subdural hematoma (CMS/HCC) [S06.5XAA] Acute subdural hematoma (CMS/HCC) [S06.5XAA] Closed fracture of left hip, initial encounter ([facility]) [S72.002A] Chief Complaint Patient presents with Fall Altered Mental Status HPI 79-year-old former smoker woman with past medical history significant for hypertension, dyslipidemia, hypothyroidism, osteopenia, depression and anxiety was brought to [facility] ED after her found her [...] coronal images of brain were obtained. Scanner: CEINT 64 slice VCT Dose reduction technique: ASIR [...] AndanalSigned Date: 11/15/2024 08:30 ET Workstation ID: [id number] Transcribed By: Self Edit Transcribed Date: 11/15/2024 [...] Signed Date: 11/14/2024 14:51 ET Workstation ID: [id number] Transcribed By: Self Edit Transcribed Date: 11/14/2024 [...] Signed Date: 11/14/2024 12:30 ET Workstation ID: [id number] Transcribed By: Self Edit Transcribed Date: 11/14/2024 [...] Signed Date: 11/14/2024 11:08 ET Workstation ID: [id number] Transcribed By: Self Edit Transcribed Date: 11/14/2024 [...] Signed Date: 11/14/2024 11:08 ET Workstation ID: [id number] Transcribed By: Self Edit Transcribed Date: 11/14/2024 [...] Signed Date: 11/14/2024 10:36 ET Workstation ID: [id number] Transcribed By: Self Edit Transcribed Date: 11/14/2024 [...] per tablet Follow-Up Instructions and Recommendations [address] [phone] No discharge procedures on file. There are no outpatient Patient Instructions on file for this admission. Outpatient Follow-Up Future Appointments Date Time Provider Department Center 12/05/2024 10:[address] [place] [facility] 12/05/2024 11:15 AM [...] by Dr. Hester - Follow up with [facility] in 2 weeks. [...] your follow up appointment. - Please call [facility] with any questions or concerns. [facility] [address] [place] [phone] documented in this encounter Medications at Time [...] 2 tablets by mouth at bedtime. 11/24/2024 acetaminophen (TYLENOL) 500 mg tablet Take 2 tablets (1,000 mg total) by mouth every 8 (eight) hours for 10 days. 11/24/2024 documented as of this encounter Ordered Prescriptions Prescription Sig Dispense Quantity Refills Last Filled Start Date End Date heparin sodium,porcine (heparin, UFH,) 5,000 unit/mL injectionIndications :Prophylaxis of Venous Thromboembolism Inject 1 mL (5,000 Units total) under the skin every 12 (twelve) hours. 11/24/2024 senna-docusate (PERICOLACE) 8.6-50 mg per tablet Take 2 tablets by mouth at bedtime. 11/24/2024 5 melatonin 3 mg tablet Take 1 tablet (3 mg total) by mouth at bedtime. 11/24/2024 levothyroxine (SYNTHROID, LEVOTHROID) 75 mcg tablet Take 1 tablet (75 mcg total) by mouth 1 (one) time each day. 11/24/2024 oxyCODONE (ROXICODONE) 5 mg immediate release tablet Take 1 tablet (5 mg total) by mouth every 4 (four) hours if needed (moderate pain or when therapies for mild pain were not effective) for up to 1 day. Max Daily Amount: 30 mg 6 tablet 11/24/2024 5 amLODIPine (NORVASC) 2.5 mg tablet Take 1 tablet (2.5 mg total) by mouth 1 (one) time each day. 11/25/2024 5 acetaminophen (TYLENOL) 500 mg tablet Take 2 tablets (1,000 mg total) by mouth every 8 (eight) hours for 10 days. 11/24/2024 5 documented in this encounter Discharge Disposition Disposition Code Departure Means Destination Comment s [facility] Facility Ambulance documented in this encounter Progress [...] onward) Start Ordered 11/17/24 1503 Adult diet [facility]; Modified Consistency Options for Liquidsand Solids, General; Regular; IDDSI Level 7 Easy to Chew (Order Panel) Diet effective now Question Answer Comment Location [facility] Diet Type (req) Modified Consistency Options [...] seen for follow up- noted after visit, hospice case manager note stating that pt discharging to residential facility at 6 pm today. Pt reports good intake/appetite. States she is having at least half of meals. cleaning supervisor indicates pt consume 100% of meals on [...] 1627 Initial Transition Plan Initial Transition Plan [facility] Transportation Transportation at discharge [facility] providing transportation [place] What day is the transport expected? 11/26/24 What time is the transport expected? 1800 Final Discharge Disposition [facility] Facility ([facility]) [facility] spoke to Fredy and daughter Yovana and updated them on transfer * Bridgette Zelaya - 11/26/2024 1:10 PM EST [facility] Physical Therapy Treatment PT Discharge Recommendations: Inpatient rehab facility placement, [facility] facility placement Equipment Recommended: walker Staff Recommendations [...] is a 79 y.o. female admitted to [facility] on 11/14/2024 with: Patient Active Problem List Diagnosis Anxiety Depression HTN (hypertension) Hyperlipidemia Hypothyroidism Osteopenia Osteoporosis Closed fracture of left hip ([facility]/HCC) Acute subdural hematoma ([facility]/HCC) Fall prevention education provided including use of call light in hospital, use of appropriate assistive device, safe mobility techniques, and safety measures at home. Continue PT as per POC. Subjective I am done with this and I do not think I am going to every get better. Objective 11/26/24 0900 PT Last Visit PT Received On 11/26/24 PT Time Calculation PT Start Time 09 PT Stop Time 09 PT Time Calculation (min) 45 min Precautions [...] day PT Discharge Recommendations Inpatient rehab facility placement;[facility] facility placement Equipment Recommended walker Barriers to [...] PT Discharge Recommendations: Inpatient rehab facility placement, [facility] facility placement Equipment Recommended: walker Barriers to [...] Education Comments No comments found. Bridgette Zelaya Cosigned by Evangelina Flowers, PT at 11/26/2024 2:29 PM EST * Trace Burris MD - 11/26/2024 12:54 PM EST Images from the original note were not included. [facility] PROGRESS NOTE Date: 11/26/2024 Author: Trace Burris MD Patient ID: Isabela Rios is a 79 y.o. female : 1945 MR#: [id number] ASSESSMENT & PLAN Assessment/Plan Principal Problem: Acute [...] Signed Date: 11/21/2024 08:46 ET Workstation ID: [id number] Transcribed By: Self Edit Transcribed Date: 11/21/2024 [...] were not included. SELAM PROGRESS NOTE Date: 11/25/2024 Author: Trace Burris MD Patient ID: Isabela Rios is a 79 y.o. female : 1945 MR#: [id number] ASSESSMENT & PLAN Assessment/Plan Principal Problem: Acute [...] Signed Date: 11/21/2024 08:46 ET Workstation ID: [id number] Transcribed By: Self Edit Transcribed Date: 11/21/2024 [...] Ruelas RN - 11/24/2024 4:02 PM EST [facility] received a message from [facility] is offering peer to peer prior to determination. Deadline is 10:30 am 11/25/24. Please have provider call [phone] option 5. thanks Message forwarded to [facility] manager etl, and Director Decision Support. Cameron Yen updated * Yolanda Carson RN [...] Bridgette Zelaya - 11/24/2024 11:31 AM EST [facility] Physical Therapy Treatment PT Discharge Recommendations: Inpatient rehab facility placement, [facility] facility placement Equipment Recommended: walker Staff Recommendations [...] is a 79 y.o. female admitted to [facility] on 11/14/2024 with: Patient Active Problem List Diagnosis Anxiety Depression HTN (hypertension) Hyperlipidemia Hypothyroidism Osteopenia Osteoporosis Hip fracture requiring operative repair, left, closed, initial encounter ([facility]) Acute subdural hematoma ([facility]) Fall prevention education provided including use [...] day PT Discharge Recommendations Inpatient rehab facility placement;[facility] facility placement Equipment Recommended walker Barriers to [...] treatment well Comments: pt was I at [facility]; feel she is a good candidate for acute rehab Medical Staff Made Aware: Yes Plan Treatment/Interventions: LE strengthening/ROM, Gait training, Endurance training PT Plan: Skilled PT PT Frequency: 2-5 days per week PT Duration of Sessions: 15-30 min per session PT Treatments per day: 1 time per day PT Discharge Recommendations: Inpatient rehab facility placement, [facility] facility placement Equipment Recommended: walker Barriers to [...] Education Comments No comments found. Bridgette Zelaya Cosigned by Moni Diana PT at 11/24/2024 12:09 PM EST Associated attestation - Moni Diana PT - [...] a 79 y.o. female : 1945 MR#: [id number] SUBJECTIVE CC: Here after fall resulting in [...] Signed Date: 11/21/2024 08:46 ET Workstation ID: [id number] Transcribed By: Self Edit Transcribed Date: 11/21/2024 [...] Rachel Bernard and Tucker. Rachel Bernard at [phone] - I met her at the bedside and care reviewed. * Michelle Muñzo RN - 11/23/2024 10:04 AM EST Problem: [...] a 79 y.o. female : 1945 MR#: [id number] SUBJECTIVE CC: Here after fall resulting in [...] Signed Date: 11/21/2024 08:46 ET Workstation ID: [id number] Transcribed By: Self Edit Transcribed Date: 11/21/2024 [...] and Tucker. I called Rachel Bernard at [phone] and left the message. * Kayla Roque [...] with good relief. Resting comfortably * Evangelina Flowers PT - 11/22/2024 10:13 AM EST [facility] Physical Therapy Treatment PT Discharge Recommendations: [facility] facility placement, Inpatient rehab facility placement Equipment [...] is a 79 y.o. female admitted to [facility] on 11/14/2024 with: Patient Active Problem List Diagnosis Anxiety Depression HTN (hypertension) Hyperlipidemia Hypothyroidism Osteopenia Osteoporosis Hip fracture requiring operative repair, left, closed, initial encounter ([facility]) Acute subdural hematoma ([facility]) Fall prevention education provided including use [...] 1 time per day PT Discharge Recommendations [facility] facility placement;Inpatient rehab facility placement PT - [...] treatment well Comments: pt was I at [facility]; feel she is a good candidate for acute rehab Medical Staff Made Aware: Yes Plan Treatment/Interventions: LE strengthening/ROM, Endurance training, Gait training PT Plan: Skilled PT PT Frequency: 2-5 days per week PT Duration of Sessions: 15-30 min per session PT Treatments per day: 1 time per day PT Discharge Recommendations: [facility] facility placement, Inpatient rehab facility placement Equipment [...] Martins OT - 11/22/2024 9:00 AM EST [facility] Occupational Therapy Treatment Note DATE: Friday November 22, 2024 TIME IN: 0900 TIME OUT: 0945 Pt: Isabela Rios [id number] DISCHARGE RECS: [facility] facility placement, Inpatient rehab facility placement EQUIPMENT RECS: Walker-rolling (tool and die maker/designer, sock aid) SAFE PT HANDLING REC FOR [...] - Evaluation Status Complete OT Discharge Recommendations [facility] facility placement;Inpatient rehab facility placement Equipment Recommended Walker-rolling (tool and die maker/designer, sock aid) ADDITIONAL COMMENTS: Chart reviewed. RN [...] onward) Start Ordered 11/17/24 1503 Adult diet [facility]; Modified Consistency Options for Liquidsand Solids, General; Regular; IDDSI Level 7 Easy to Chew (Order Panel) Diet effective now Question Answer Comment Location [facility] Diet Type (req) Modified Consistency Options [...] (increased her walking, cut back ). Appetite CHARGE POSTER: Good Intake CHARGE POSTER: Stable Vitamins/Minerals/Herbs: one a day type multivitamin [...] a 79 y.o. female : 1945 MR#: [id number] SUBJECTIVE CC: Here after fall resulting in [...] Signed Date: 11/21/2024 08:46 ET Workstation ID: [id number] Transcribed By: Self Edit Transcribed Date: 11/21/2024 [...] Bridgette Garcia - 11/21/2024 10:54 AM EST [facility] Physical Therapy Treatment PT Discharge Recommendations: Inpatient rehab facility placement, [facility] facility placement Equipment Recommended: walker Staff Recommendations [...] is a 79 y.o. female admitted to [facility] on 11/14/2024 with: Patient Active Problem List Diagnosis Anxiety Depression HTN (hypertension) Hyperlipidemia Hypothyroidism Osteopenia Osteoporosis Hip fracture requiring operative repair, left, closed, initial encounter ([facility]) Acute subdural hematoma ([facility]) Fall prevention education provided including use [...] day PT Discharge Recommendations Inpatient rehab facility placement;[facility] facility placement Equipment Recommended walker Barriers to [...] treatment well Comments: pt was I at [facility]; feel she is a good candidate for acute rehab Medical Staff Made Aware: Yes Plan Treatment/Interventions: LE strengthening/ROM, Endurance training, Gait training PT Plan: Skilled PT PT Frequency: 7 days per week PT Duration of Sessions: 15-30 min per session PT Treatments per day: 1 time per day PT Discharge Recommendations: Inpatient rehab facility placement, [facility] facility placement Equipment Recommended: walker Barriers to [...] Resolved: 11/21/24 Outcomes Date/Time User Outcome 11/21/24 1059 Bridgette Zelaya Completed Goal: Patient will transfer [...] Education Comments No comments found. Bridgette Zelaya Cosigned by Evangelina Flowers PT at 11/21/2024 1:15 PM EST Associated attestation - Evangelina Flowers PT - [...] over left periorbital region Oriented to person, [facility], Oct 2024. Respirations unlabored and heart had [...] Martins, OT - 11/21/2024 9:30 AM EST [facility] Occupational Therapy Treatment Note DATE: Thursday November 21, 2024 TIME IN: 0930 TIME OUT: 1010 Pt: Isabela Rios [id number] DISCHARGE RECS: [facility] facility placement, Inpatient rehab facility placement EQUIPMENT RECS: Walker-rolling (tool and die maker/designer) SAFE PT HANDLING REC FOR STAFF: 1 [...] - Evaluation Status Complete OT Discharge Recommendations [facility] facility placement;Inpatient rehab facility placement Equipment Recommended Walker-rolling (tool and die maker/designer) ADDITIONAL COMMENTS: Chart reviewed. RN clears pt [...] Orthopedic team. No acute findings. Tissue exam: [id number] Order: [id number] Collected 11/17/2024 13:17 Status: Final result Visible [...] with some hemorrhage around the margin. A sales support representative section is submitted in one cassette following decalcification, one piece [facility]CO Disclaimer Unless otherwise specified, all tissue is 10% NB formalin fixed and paraffin embedded. Resulting Agency [facility] [[email or web address]] Collection Information Specimen ID: [id number] Bone Bone Collected: 11/17/2024 1317 EST ELVA HESTER Received: 11/17/2024 1555 EST Resulting Agency: [facility]) [facility] [address] [place] [id number] * Magnolia Lincoln OT - 11/20/2024 3:42 [...] chair with back Prior Function Level of [place] Independent with mobility and functional transfers Indoor [...] Entry OT Evaluation (Low) Time Entry 35 [facility] Occupational Therapy Evaluation DATE: October TIME [...] is a 79 y.o. female admitted to [facility] on 11/14/2024. Occupational Therapy evaluation and treatment ordered to assess ADL independence, safety, and functional mobility for discharge planning. Patient Active Problem List Diagnosis Anxiety Depression HTN (hypertension) Hyperlipidemia Hypothyroidism Osteopenia Osteoporosis Hip fracture requiring operative repair, left, closed, initial encounter ([facility]) Acute subdural hematoma ([facility]) Past Medical History: Diagnosis Date Anxiety [...] chair with back Prior Function Level of [place] Independent with mobility and functional transfers Indoor [...] a 79 y.o. female : 1945 MR#: [id number] SUBJECTIVE CC: Here after fall resulting in [...] Signed Date: 11/18/2024 14:33 ET Workstation ID: [id number] Transcribed By: Self Edit Transcribed Date: 11/18/2024 [...] Signed Date: 11/18/2024 06:58 ET Workstation ID: [id number] Transcribed By: Self Edit Transcribed Date: 11/18/2024 [...] Bridgette Zelaya - 11/20/2024 1:27 PM EST [facility] Physical Therapy Treatment PT Discharge Recommendations: [...] is a 79 y.o. female admitted to [facility] on 11/14/2024 with: Patient Active Problem List Diagnosis Anxiety Depression HTN (hypertension) Hyperlipidemia Hypothyroidism Osteopenia Osteoporosis Hip fracture requiring operative repair, left, closed, initial encounter ([facility]) Acute subdural hematoma ([facility]) Fall prevention education provided including use [...] treatment well Comments: pt was I at [facility]; feel she is a good candidate [...] Education Comments No comments found. Bridgette Zelaya Cosigned by Evangelina Flowers PT at 11/20/2024 2:56 PM EST Associated attestation - Evangelina Flowers PT - [...] y.o. Sex: female Acute subdural hematoma (CMS/HCC) [facility] Physical Therapy Treatment Ambulation: Walking Assistance: Moderate assistance Walking Deficit: Steadying, Verbal cueing, Supervision/safety awareness, Increased time to complete, Assist for foot placement, Assist for trunk control, Assist for weight shifting, Limited endurance, Impaired balance, LE weakness Device: Rolling walker Distance Ambulated (ft): (P) 2 PLOF: Level of [place]: Independent with mobility and functional transfers Lives [...] Plan PT Discharge Recommendations Inpatient rehab facility placement;[facility] facility placement PLAN Acute Care Plan: PT Plan: Skilled PT PT Frequency: Other (Comment) (BID) PT Discharge Recommendations: (P) Inpatient rehab facility placement, [facility] facility placement Equipment Recommended: rwalker Time Spent: [...] a 79 y.o. female : 1945 MR#: [id number] SUBJECTIVE CC: Here after fall resulting in [...] Signed Date: 11/18/2024 14:33 ET Workstation ID: [id number] Transcribed By: Self Edit Transcribed Date: 11/18/2024 [...] Signed Date: 11/18/2024 06:58 ET Workstation ID: [id number] Transcribed By: Self Edit Transcribed Date: 11/18/2024 [...] management and this was conveyed to our hospice case manager. * FRANCES Herrera - 11/19/2024 10:04 AM [...] Signed Date: 11/18/2024 14:33 ET Workstation ID: [id number] Transcribed By: Self Edit Transcribed Date: 11/18/2024 [...] Signed Date: 11/18/2024 06:58 ET Workstation ID: [id number] Transcribed By: Self Edit Transcribed Date: 11/18/2024 [...] Patient is alert and oriented to person, [facility] , and year. Cranial Nerves: No [...] Orthopedics and Dr. Yeboah from Neurosurgery at [place]. Patient is neurologically stable. Will continue to [...] oral regimen. She has been monitored in [facility] due to SDH. Discussed [...] heparin. This will be communicated to both [place] and neurosurgery teams. I anticipate we will [...] Signed Date: 11/18/2024 14:33 ET Workstation ID: [id number] Transcribed By: Self Edit Transcribed Date: 11/18/2024 [...] y.o. Sex: female Acute subdural hematoma (CMS/HCC) [facility] Physical Therapy Evaluation PLOF: Level of [place]: Independent with mobility and functional transfers Lives With: Spouse Type of Home: House Home Access: Stairs to enter with rails DME Needs: rwalker PT Discharge Recommendation: [facility] facility placement Reason for current recommendation based [...] of Steps 2 Prior Function Level of [place] Independent with mobility and functional transfers Indoor [...] Frequency Other (Comment) (BID) PT Discharge Recommendations [facility] facility placement Equipment Recommended monae PT - Evaluation Status Complete PT Evaluation Time Entry PT Evaluation (Moderate) Time Entry 53 PLAN Acute Care Plan: PT Plan: Skilled PT PT Frequency: Other (Comment) (BID) PT Discharge Recommendations: [facility] facility placement Equipment Recommended: monae Encounter Problems [...] a 79 y.o. female : 1945 MR#: [id number] SUBJECTIVE CC: Here after fall resulting in [...] Signed Date: 11/18/2024 06:58 ET Workstation ID: [id number] Transcribed By: Self Edit Transcribed Date: 11/18/2024 [...] oral regimen. She ahs been monitored in [facility] due to SDH. Seen [...] a 79 y.o. female : 1945 MR#: [id number] SUBJECTIVE CC: Here after fall resulting in [...] at home and confirmed this, it is iqgf-jpj-uuxholm medication. Some abdominal discomfort was reported, mid [...] obtained following IV 90 mL Isovue-370. Scanner: CEINT 64 slice VCT Dose reduction technique: ASIR [...] Signed Date: 11/16/2024 10:45 ET Workstation ID: [id number] Transcribed By: Self Edit Transcribed Date: 11/16/2024 [...] Signed Date: 11/16/2024 07:11 ET Workstation ID: [id number] Transcribed By: Self Edit Transcribed Date: 11/16/2024 [...] Ordered 11/17/24 0001 Adult NPO diet Location: [facility]; Diet: NPO- Except for Medications Diet effective midnight Question Answer Comment Location [facility] Diet NPO- Except for Medications 11/16/24 [...] (increased her walking, cut back ). Appetite CHARGE POSTER: Good Intake CHARGE POSTER: Stable Vitamins/Minerals/Herbs: one a day type multivitamin [...] a 79 y.o. female : 1945 MR#: [id number] SUBJECTIVE Follow up: SDH, L hip fx, [...] Awake, alert, some word finding difficulties. Place: [facility] Knows year. Month November Neurological: No [...] obtained following IV 90 mL Isovue-370. Scanner: CEINT 64 slice VCT Dose reduction technique: ASIR [...] Signed Date: 11/16/2024 10:45 ET Workstation ID: [id number] Transcribed By: Self Edit Transcribed Date: 11/16/2024 [...] Signed Date: 11/16/2024 07:11 ET Workstation ID: [id number] Transcribed By: Self Edit Transcribed Date: 11/16/2024 [...] repair tomorrow S/p Fall Reported hx falls CHARGE POSTER. Etiology? Acute encephalopathy Dysarthria Cognitive decline Suspect [...] 10:45 AM EST Patient returned from CT, teletypesetter monitor placed. * Ruth Ibrahim RN - 11/16/2024 7:30 AM EST Attempt to place patient on teletypesetter monitor, pt continuing to remove. * Petar Catherine [...] 4:23 AM EST Patient continuing to remove teletypesetter monitor every time it is replaced. * Petar [...] let patient get rest and defer putting teletypesetter monitor back on until 4am when vitals are [...] up Transition Plan Back up Transition plan [facility] Facility Discharge Planning Contact (Name, Phone #, Relationship) for DC Planning Tucker Rios spouse [phone] Living Arrangements Spouse/significant other Type of Residence Private residence Support Systems Children Medication Coverage Has Med Coverage Under Insurance Plan Yes Anticipated Discharge Needs DME Needs Front wheeled walker Discipline following for SNF placement Community Engagement Manager Informed Choice Informed Choice Given? Yes Initial Assessment Notices: Patient choice given. VAL: Unable to determine Barriers to progression of care/discharge: Sitter; left hip surgery 11/16/2023; s/p fall with subdural hematoma; pain management; PT evaluation Plan Dispo: [facility] [place]/[address] [place] [address] Referral/Auth status: Placed 11/16 pending Support Persons and Availability: Lives with spouse; supportive daughter lives in [place] Transportation: Ambulance vs stretcher Current/Prior Services/DME: Used no DME Home/Living situation: One level with two steps to entry / status: No If DC to home, readily able to access: Yes Readmission: No Therapy Eval: Pending Covid Vacc: Yes Last BM: ? HCP: No...confused 11/16/2023 Pharmacy: [place], [place] * FRANCES Herrera - 11/15/2024 1:27 [...] and coronal images of brainwere obtained. Scanner: CEINT 64 slice VCT Dose reduction technique: ASIR [...] Signed Date: 11/15/2024 08:30 ET Workstation ID: [id number] Transcribed By: Self Edit Transcribed Date: 11/15/2024 [...] a 79 y.o. female : 1945 MR#: [id number] SUBJECTIVE Follow up: SDH, L hip fx, [...] and coronal images of brainwere obtained. Scanner: CEINT 64 slice VCT Dose reduction technique: ASIR [...] Signed Date: 11/15/2024 08:30 ET Workstation ID: [id number] Transcribed By: Self Edit Transcribed Date: 11/15/2024 [...] note were not included. Speech Language Pathology [facility] SENIOR HR GENERALIST BEDSIDE SWALLOW EVALUATION NAME: Isabela Rios DATE OF : 1945 ROOM: SENIOR HR GENERALIST Received On: 11/15/24 Commercial Singer Required: No TIME IN: 1115 TIME OUT: [...] Closed fracture of left hip, initial encounter ([facility]) [S72.002A] No admission procedures for hospital encounter. [...] and coronal images of brainwere obtained. Scanner: CEINT 64 slice VCT Dose reduction technique: ASIR [...] Signed Date: 11/15/2024 08:30 ET Workstation ID: [id number] Transcribed By: Self Edit Transcribed Date: 11/15/2024 [...] Signed Date: 11/14/2024 11:08 ET Workstation ID: [id number] Transcribed By: Self Edit Transcribed Date: 11/14/2024 [...] Medication Administration: One pill at a time SENIOR HR GENERALIST ASSESSMENT: SENIOR HR GENERALIST Assessment Results: At baseline, Within functional limits Dysphagia Diagnosis: Within Functional Limits Evaluation/Treatment Tolerance: Patient tolerated treatment well Medical Staff Made Aware: Yes Comments: Disucessed w/ RN and message sent to MD CURRENT DIET: Dietary Orders (From admission, onward) Start Ordered 11/16/24 0001 Adult NPO diet Location: [facility]; Diet: NPO- Except for Medications Diet effective now Question Answer Comment Location [facility] Diet NPO- Except for Medications 11/14/24 1442 11/16/24 0001 Adult NPO diet Location: [facility]; Diet: NPO- Except for Medications Diet effective midnight Question Answer Comment Location [facility] Diet NPO- Except for Medications 11/15/24 1036 11/15/24 1236 Adult diet [facility]; General, Modified Consistency Options for Liquids and Solids; Regular; IDDSI Level 7 Easy to Chew Diet effective now Question Answer Comment Location [facility] Diet Type (req) General Diet Type (req) Modified Consistency Options for Liquids and Solids General Diet Regular Modified Consistency Options for Liquids and Solids IDDSI Level 7 Easy to Chew 11/15/24 1235 PLAN OF CARE SENIOR HR GENERALIST PLAN SENIOR HR GENERALIST Plan: No skilled SENIOR HR GENERALIST No Skilled SENIOR HR GENERALIST: Independent with swallowing SENIOR HR GENERALIST - Evaluation Status: Complete SENIOR HR GENERALIST Discharge Recommendations: Home independent Diet Recommendations: IDDSI 7/0, regular and thin liquids DISCHARGE RECOMMENDATIONS No Speech-Language Pathology (SENIOR HR GENERALIST) services/needs at next level of care. EDUCATION [...] Problems (Resolved) There are no resolved problems. Cosigned by NESTOR Winter at 11/15/2024 6:35 PM EST Associated attestation - Rachel Delacruz SLP - 11/15/2024 6:35 PM EST I attest that I, Kathleen Delacruz M.S.,[facility]-SENIOR HR GENERALIST, was physically involved in the ongoing assessment, [...] Procedure Abnormality Status --------- ------ CBC auto differential[[id number]] Abnormal Final result Please view results for these tests on the individual orders. URINALYSIS WITH REFLEX MICROSCOPIC AND CULTURE Narrative: The following orders were created for panel order Urinalysis with reflex microscopic and culture. Procedure Abnormality Status --------- ------ Urinalysis with reflex ...[[id number]] Estrada urine culture tube[[id number]] Please view results for these tests on [...] Signed Date: 11/14/2024 11:08 ET Workstation ID: [id number] Transcribed By: Self Edit Transcribed Date: 11/14/2024 11:05 ET XR Chest 1 View Final Result No acute findings. -------- FINAL REPORT -------- Dictated By: Vinayak Austin Dictated Date: 11/14/2024 11:08 ET Assigned Physician: Vinayak Austin Reviewed and Electronically Signed By: Vinayak Austin Signed Date: 11/14/2024 11:08 ET Workstation ID: [id number] Transcribed By: Self Edit Transcribed Date: 11/14/2024 11:[address] Head wo Contrast Final Result 8 mm subdural hematoma along the right convexity. -------- FINAL REPORT -------- Dictated By: Vinayak Austin Dictated Date: 11/14/2024 10:30 ET Assigned Physician: Vinayak Austin Reviewed and Electronically Signed By: Vinayak Austin Signed Date: 11/14/2024 10:36 ET Workstation ID: [id number] Transcribed By: Self Edit Transcribed Date: 11/14/2024 [...] George 11/14/24 1204 FRANCES George 11/14/24 1205 Cosigned by Román Guzman MD at 11/14/2024 3:10 PM EST documented in this encounter H&P Notes * Demarcus Villalobos MD - 11/14/2024 1:05 PM EST Images from the original note were not included. S[facility] HISTORY AND PHYSICAL Please contact author [Demarcus Villalobos MD] via [employer]. Patient: Isabela Rios Admission Date/Time: 11/14/2024 9:22 AM : 1945 [79 y.o.] Patient's PCP: Garcia Doran MD Attending Provider: Román Guzman MD;Ca* CHIEF COMPLAINT Found on the floor HISTORY OF PRESENT ILLNESS This is s 79-year-old former smoker woman with past medical history significant for hypertension, dyslipidemia, hypothyroidism, osteopenia, depression and anxiety was brought to [facility] ED after her found her [...] Signed Date: 11/14/2024 14:51 ET Workstation ID: [id number] Transcribed By: Self Edit Transcribed Date: 11/14/2024 14:[address] Lower Extremity wo Contrast Left Final Result Impacted and angulated left femoral neck fracture -------- FINAL REPORT -------- Dictated By: KYLER BARRERA Dictated Date: 11/14/2024 12:26 ET Assigned Physician: KYLER BARRERA Reviewed and Electronically Signed By: KYLER BARRERA Signed Date: 11/14/2024 12:30 ET Workstation ID: [id number] Transcribed By: Self Edit Transcribed Date: 11/14/2024 12:26 ET XR Hip 2-3 Views Left Final Result Acute transcervical femoral neck fracture. -------- FINAL REPORT -------- Dictated By: Vinayak Austin Dictated Date: 11/14/2024 11:05 ET Assigned Physician: Vinayak Austin Reviewed and Electronically Signed By: Vinayak Austin Signed Date: 11/14/2024 11:08 ET Workstation ID: [id number] Transcribed By: Self Edit Transcribed Date: 11/14/2024 11:05 ET XR Chest 1 View Final Result No acute findings. -------- FINAL REPORT -------- Dictated By: Vinayak Austin Dictated Date: 11/14/2024 11:08 ET Assigned Physician: Vinayak Austin Reviewed and Electronically Signed By: Vinayak Austin Signed Date: 11/14/2024 11:08 ET Workstation ID: [id number] Transcribed By: Self Edit Transcribed Date: 11/14/2024 11:[address] Head wo Contrast Final Result 8 mm subdural hematoma along the right convexity. -------- FINAL REPORT -------- Dictated By: Vinayak Austin Dictated Date: 11/14/2024 10:30 ET Assigned Physician: Vinayak Austin Reviewed and Electronically Signed By: Vinayak Austin Signed Date: 11/14/2024 10:36 ET Workstation ID: [id number] Transcribed By: Self Edit Transcribed Date: 11/14/2024 [...] sedatives at this point Will get constant digital content coordinator May use soft restraints, too 5. Dysarthria [...] reconciliation Health Care proxy: Tucker Rios (): [phone] documented in this encounter Procedure Notes * [...] (posterior approach, cemented) Surgeon: SAIMA Hester MD technical staff assistant: Juan Luis Larsen MD Anesthesia: GETA [...] the position and minimize likelihoodof varus alignment [place] canal was broached with sequential sizes Size [...] and alert. She was oriented to person, [facility], and the year 2024. She could [...] Closed fracture of left hip, initial encounter ([facility]) Thank you for allowing us to care for your patient. FRANCES Herrera on 11/14/2024 at 7:17 PM EST CC: No ref. provider found Garcia Doran MD [facility] [place] * FRANCES Arnold - 11/14/2024 2:50 PM [...] Signed Date: 11/14/2024 12:30 ET Workstation ID: [id number] Transcribed By: Self Edit Transcribed Date: 11/14/2024 [...] Signed Date: 11/14/2024 11:08 ET Workstation ID: [id number] Transcribed By: Self Edit Transcribed Date: 11/14/2024 [...] Signed Date: 11/14/2024 11:08 ET Workstation ID: [id number] Transcribed By: Self Edit Transcribed Date: 11/14/2024 [...] Signed Date: 11/14/2024 10:36 ET Workstation ID: [id number] Transcribed By: Self Edit Transcribed Date: 11/14/2024 [...] 80 Q-T Interval 430 QTc 495 R Noble 31 T Noble -53 ECG Interpretation Normal sinus rhythm Nonspecific [...] Description 03/06/2025 11:30 AM EDT Office Visit [facility] [address] [place], [place] [phone] Garcia Doran MD [address] [place] [address] documented as of this encounter Procedures Procedure [...] requiring operative repair, left, closed, initial encounter ([facility]) CO HEMIARTHROPLASTY HIP PARTIAL 11/17/2024 12:14 PM EST Hip fracture requiring operative repair, left, closed, initial encounter ([facility]) Case Notes c arm, implants, lateral [...] ECG 12-LEAD Routine 11/14/2024 9:41 AM EST CO CRITICAL CARE EACH ADDITIONAL 30 MINUTES Routine 11/14/2024 9:21 AM EST CO CRITICAL CARE EACH ADDITIONAL 30 MINUTES Routine 11/14/2024 9:21 AM EST CO CRITICAL CARE EACH ADDITIONAL 30 MINUTES Routine 11/14/2024 9:21 AM EST ECG ANNOTATED 11/14/2024 documented in this encounter Results * (ABNORMAL) Complete blood count (11/26/2024 5:49 AM EST) WBC 8.6 4.8 - 10.8 K/[facility] LAB HEMETOLOGY METHOD 11/26/2024 6:52 AM [facility] RBC 2.50(L) 3.80 - 4.80 M/mcL LAB HEMETOLOGY METHOD 11/26/2024 6:52 AM [facility] Hemoglobin 7.8(L) 11.5 - 16.0 g/dL LAB HEMETOLOGY METHOD 11/26/2024 6:52 AM [facility] Hematocrit 25.0(L) 35.0 - 47.0 % LAB HEMETOLOGY METHOD 11/26/2024 6:52 AM [facility] MCV 98.8(H) 79.0 - 98.0 FL LAB HEMETOLOGY METHOD 11/26/2024 6:52 AM [facility] MCH 30.8 27.0 - 32.0 pcg LAB HEMETOLOGY METHOD 11/26/2024 6:52 AM [facility] MCHC 31.2(L) 32.0 - 37.0 g/dL LAB HEMETOLOGY METHOD 11/26/2024 6:52 AM [facility] RDW 16.2(H) 11.0 - 15.0 % LAB HEMETOLOGY METHOD 11/26/2024 6:52 AM [facility] Platelets 478(H) 130 - 400 K/mcL LAB HEMETOLOGY METHOD 11/26/2024 6:52 AM [facility] MPV 9.2 7.0 - 11.0 FL LAB HEMETOLOGY METHOD 11/26/2024 6:52 AM [facility] NRBC 0.0 <1.0 % LAB HEMETOLOGY METHOD 11/26/2024 6:52 AM [facility] NRBC Absolute 0.00 <0.10 K/mcL LAB HEMETOLOGY METHOD 11/26/2024 6:52 AM [facility] Blood Venous blood specimen / Unknown Venipuncture / Unknown 11/26/2024 5:49 AM EST 11/26/2024 6:33 AM EST us Jaz DANIELS LAB BLOOD ORDERABLES Final Resul t [facility] [address] [place] [address], [place] [phone] * Basic metabolic panel (11/26/2024 5:49 AM EST) Sodium 138 133 - 145 mmol/L LAB CHEMISTRY METHOD 11/26/2024 7:10 AM [facility] Potassium 4.5 3.5 - 5.5 mmol/L LAB CHEMISTRY METHOD 11/26/2024 7:10 AM [facility] Chloride 105 96 - 110 mmol/L LAB CHEMISTRY METHOD 11/26/2024 7:10 AM [facility] CO2 29 21 - 32 mmol/L LAB CHEMISTRY METHOD 11/26/2024 7:10 AM [facility] Anion Gap 4 3 - 11 LAB CHEMISTRY METHOD 11/26/2024 7:10 AM [facility] Glucose 86 70 - 100 mg/dL LAB CHEMISTRY METHOD 11/26/2024 7:10 AM [facility] BUN 15 5 - 25 mg/dL LAB CHEMISTRY METHOD 11/26/2024 7:10 AM [facility] Creatinine 0.72 0.50 - 1.10 mg/dL LAB CHEMISTRY METHOD 11/26/2024 7:10 AM [facility] eGFR 86 >=60 mL/min/1. 73m2 LAB CHEMISTRY METHOD 11/26/2024 7:10 AM [facility] Comment:Calculation based on the??Chronic Kidney Disease Epidemiology Collaboration (CKD-EPI) equation refit??without adjustment for race. BUN/Creatinine Ratio 20.8 LAB CHEMISTRY METHOD 11/26/2024 7:10 AM [facility] Calcium 8.7 8.5 - 10.5 mg/dL LAB CHEMISTRY METHOD 11/26/2024 7:10 AM [facility] Blood Venous blood specimen / Unknown Venipuncture / Unknown 11/26/2024 5:49 AM EST 11/26/2024 6:33 AM EST us Jaz DANIELS LAB BLOOD ORDERABLES Final Resul t [facility] [address] [place] [address], * (ABNORMAL) Complete blood count (11/25/2024 6:59 AM EST) WBC 9.7 4.8 - 10.8 K/mcL LAB HEMETOLOGY METHOD 11/25/2024 8:05 AM [facility] RBC 2.70(L) 3.80 - 4.80 M/mcL LAB HEMETOLOGY METHOD 11/25/2024 8:05 AM [facility] Hemoglobin 8.1(L) 11.5 - 16.0 g/dL LAB HEMETOLOGY METHOD 11/25/2024 8:05 AM [facility] Hematocrit 25.6(L) 35.0 - 47.0 % LAB HEMETOLOGY METHOD 11/25/2024 8:05 AM [facility] MCV 95.9 79.0 - 98.0 FL LAB HEMETOLOGY METHOD 11/25/2024 8:05 AM [facility] MCH 30.3 27.0 - 32.0 pcg LAB HEMETOLOGY METHOD 11/25/2024 8:05 AM [facility] MCHC 31.6(L) 32.0 - 37.0 g/dL LAB HEMETOLOGY METHOD 11/25/2024 8:05 AM [facility] RDW 15.9(H) 11.0 - 15.0 % LAB HEMETOLOGY METHOD 11/25/2024 8:05 AM [facility] Platelets 437(H) 130 - 400 K/mcL LAB HEMETOLOGY METHOD 11/25/2024 8:05 AM [facility] MPV 9.3 7.0 - 11.0 FL LAB HEMETOLOGY METHOD 11/25/2024 8:05 AM EST [facility] NRBC 0.0 <1.0 % LAB HEMETOLOGY METHOD 11/25/2024 8:05 AM [facility] NRBC Absolute 0.00 <0.10 K/mcL LAB HEMETOLOGY METHOD 11/25/2024 8:05 AM [facility] Blood Venous blood specimen / Unknown Venipuncture / Unknown 11/25/2024 6:59 AM EST 11/25/2024 7:47 AM EST us Jaz DANIELS LAB BLOOD ORDERABLES Final Resul t [facility] [address] [place] [address], * (ABNORMAL) Basic metabolic panel (11/25/2024 6:59 AM EST) Sodium 136 133 - 145 mmol/L LAB CHEMISTRY METHOD 11/25/2024 8:47 AM [facility] Potassium 4.4 3.5 - 5.5 mmol/L LAB CHEMISTRY METHOD 11/25/2024 8:47 AM [facility] Chloride 104 96 - 110 mmol/L LAB CHEMISTRY METHOD 11/25/2024 8:47 AM [facility] CO2 30 21 - 32 mmol/L LAB CHEMISTRY METHOD 11/25/2024 8:47 AM [facility] Anion Gap 2(L) 3 - 11 LAB CHEMISTRY METHOD 11/25/2024 8:47 AM [facility] Glucose 95 70 - 100 mg/dL LAB CHEMISTRY METHOD 11/25/2024 8:47 AM EST [facility] BUN 16 5 - 25 mg/dL LAB CHEMISTRY METHOD 11/25/2024 8:47 AM [facility] Creatinine 0.75 0.50 - 1.10 mg/dL LAB CHEMISTRY METHOD 11/25/2024 8:47 AM [facility] eGFR 82 >=60 mL/min/1. 73m2 LAB CHEMISTRY METHOD 11/25/2024 8:47 AM [facility] Comment:Calculation based on the??Chronic Kidney Disease Epidemiology Collaboration (CKD-EPI) equation refit??without adjustment for race. BUN/Creatinine Ratio 21.3 LAB CHEMISTRY METHOD 11/25/2024 8:47 AM [facility] Calcium 8.8 8.5 - 10.5 mg/dL LAB CHEMISTRY METHOD 11/25/2024 8:47 AM [facility] Blood Venous blood specimen / Unknown Venipuncture / Unknown 11/25/2024 6:59 AM EST 11/25/2024 7:36 AM EST us Jaz DANIELS LAB BLOOD ORDERABLES Final Resul t [facility] [address] [place] [address], * (ABNORMAL) Complete blood count (11/24/2024 6:24 AM EST) WBC 8.1 4.8 - 10.8 K/mcL LAB HEMETOLOGY METHOD 11/24/2024 7:31 AM [facility] RBC 2.80(L) 3.80 - 4.80 M/mcL LAB HEMETOLOGY METHOD 11/24/2024 7:31 AM [facility] Hemoglobin 8.8(L) 11.5 - 16.0 g/dL LAB HEMETOLOGY METHOD 11/24/2024 7:31 AM EST [facility] Hematocrit 26.9(L) 35.0 - 47.0 % LAB HEMETOLOGY METHOD 11/24/2024 7:31 AM [facility] MCV 96.1 79.0 - 98.0 FL LAB HEMETOLOGY METHOD 11/24/2024 7:31 AM [facility] MCH 31.4 27.0 - 32.0 pcg LAB HEMETOLOGY METHOD 11/24/2024 7:31 AM EST [facility] MCHC 32.7 32.0 - 37.0 g/dL LAB HEMETOLOGY METHOD 11/24/2024 7:31 AM [facility] RDW 15.4(H) 11.0 - 15.0 % LAB HEMETOLOGY METHOD 11/24/2024 7:31 AM [facility] Platelets 389 130 - 400 K/mcL LAB HEMETOLOGY METHOD 11/24/2024 7:31 AM EST [facility] MPV 9.2 7.0 - 11.0 FL LAB HEMETOLOGY METHOD 11/24/2024 7:31 AM [facility] NRBC 0.2 <1.0 % LAB HEMETOLOGY METHOD 11/24/2024 7:31 AM [facility] NRBC Absolute 0.02 <0.10 K/mcL LAB HEMETOLOGY METHOD 11/24/2024 7:31 AM [facility] Blood Venous blood specimen / Unknown Venipuncture / Unknown 11/24/2024 6:24 AM EST 11/24/2024 6:48 AM EST us Jaz DANIELS LAB BLOOD ORDERABLES Final Resul t [facility] [address] [place] [address], * (ABNORMAL) Basic metabolic panel (11/24/2024 6:24 AM EST) Sodium 138 133 - 145 mmol/L LAB CHEMISTRY METHOD 11/24/2024 8:12 AM [facility] Potassium 4.1 3.5 - 5.5 mmol/L LAB CHEMISTRY METHOD 11/24/2024 8:12 AM [facility] Chloride 105 96 - 110 mmol/L LAB CHEMISTRY METHOD 11/24/2024 8:12 AM [facility] CO2 30 21 - 32 mmol/L LAB CHEMISTRY METHOD 11/24/2024 8:12 AM [facility] Anion Gap 3 3 - 11 LAB CHEMISTRY METHOD 11/24/2024 8:12 AM [facility] Glucose 101(H) 70 - 100 mg/dL LAB CHEMISTRY METHOD 11/24/2024 8:12 AM [facility] BUN 16 5 - 25 mg/dL LAB CHEMISTRY METHOD 11/24/2024 8:12 AM [facility] Creatinine 0.77 0.50 - 1.10 mg/dL LAB CHEMISTRY METHOD 11/24/2024 8:12 AM [facility] eGFR 80 >=60 mL/min/1. 73m2 LAB CHEMISTRY METHOD 11/24/2024 8:12 AM [facility] Comment:Calculation based on the??Chronic Kidney Disease Epidemiology Collaboration (CKD-EPI) equation refit??without adjustment for race. BUN/Creatinine Ratio 20.8 LAB CHEMISTRY METHOD 11/24/2024 8:12 AM [facility] Calcium 8.8 8.5 - 10.5 mg/dL LAB CHEMISTRY METHOD 11/24/2024 8:12 AM [facility] Blood Venous blood specimen / Unknown Venipuncture / Unknown 11/24/2024 6:24 AM EST 11/24/2024 6:48 AM EST Jaz DANIELS LAB BLOOD ORDERABLES Final Resul t [facility] [address] [place] [address], * (ABNORMAL) Complete blood count (11/23/2024 6:25 AM EST) WBC 9.4 4.8 - 10.8 K/mcL LAB HEMETOLOGY METHOD 11/23/2024 7:28 AM [facility] RBC 2.80(L) 3.80 - 4.80 M/mcL LAB HEMETOLOGY METHOD 11/23/2024 7:28 AM [facility] Hemoglobin 8.7(L) 11.5 - 16.0 g/dL LAB HEMETOLOGY METHOD 11/23/2024 7:28 AM [facility] Hematocrit 27.2(L) 35.0 - 47.0 % LAB HEMETOLOGY METHOD 11/23/2024 7:28 AM [facility] MCV 96.5 79.0 - 98.0 FL LAB HEMETOLOGY METHOD 11/23/2024 7:28 AM [facility] MCH 30.9 27.0 - 32.0 pcg LAB HEMETOLOGY METHOD 11/23/2024 7:28 AM [facility] MCHC 32.0 32.0 - 37.0 g/dL LAB HEMETOLOGY METHOD 11/23/2024 7:28 AM [facility] RDW 15.3(H) 11.0 - 15.0 % LAB HEMETOLOGY METHOD 11/23/2024 7:28 AM [facility] Platelets 345 130 - 400 K/mcL LAB HEMETOLOGY METHOD 11/23/2024 7:28 AM [facility] MPV 9.6 7.0 - 11.0 FL LAB HEMETOLOGY METHOD 11/23/2024 7:28 AM EST [facility] NRBC 0.0 <1.0 % LAB HEMETOLOGY METHOD 11/23/2024 7:28 AM [facility] NRBC Absolute 0.00 <0.10 K/mcL LAB HEMETOLOGY METHOD 11/23/2024 7:28 AM [facility] Blood Venous blood specimen / Unknown Venipuncture / Unknown 11/23/2024 6:25 AM EST 11/23/2024 7:04 AM EST us Jaz DANIELS LAB BLOOD ORDERABLES Final Resul t [facility] [address] [place] [address], [place] [phone] * Basic metabolic panel (11/23/2024 6:25 AM EST) Sodium 139 133 - 145 mmol/L LAB CHEMISTRY METHOD 11/23/2024 7:38 AM [facility] Potassium 4.2 3.5 - 5.5 mmol/L LAB CHEMISTRY METHOD 11/23/2024 7:38 AM [facility] Chloride 106 96 - 110 mmol/L LAB CHEMISTRY METHOD 11/23/2024 7:38 AM [facility] CO2 29 21 - 32 mmol/L LAB CHEMISTRY METHOD 11/23/2024 7:38 AM [facility] Anion Gap 4 3 - 11 LAB CHEMISTRY METHOD 11/23/2024 7:38 AM [facility] Glucose 89 70 - 100 mg/dL LAB CHEMISTRY METHOD 11/23/2024 7:38 AM [facility] BUN 15 5 - 25 mg/dL LAB CHEMISTRY METHOD 11/23/2024 7:38 AM [facility] Creatinine 0.64 0.50 - 1.10 mg/dL LAB CHEMISTRY METHOD 11/23/2024 7:38 AM [facility] eGFR 91 >=60 mL/min/1. 73m2 LAB CHEMISTRY METHOD 11/23/2024 7:38 AM EST [facility] Comment:Calculation based on the??Chronic Kidney Disease Epidemiology Collaboration (CKD-EPI) equation refit??without adjustment for race. BUN/Creatinine Ratio 23.4 LAB CHEMISTRY METHOD 11/23/2024 7:38 AM EST [facility] Calcium 8.9 8.5 - 10.5 mg/dL LAB CHEMISTRY METHOD 11/23/2024 7:38 AM [facility] Blood Venous blood specimen / Unknown Venipuncture / Unknown 11/23/2024 6:25 AM EST 11/23/2024 7:04 AM EST us Jaz DANIELS LAB BLOOD ORDERABLES Final Resul t [facility] [address] [place] [address], * (ABNORMAL) Complete blood count (11/22/2024 6:37 AM EST) WBC 8.6 4.8 - 10.8 K/mcL LAB HEMETOLOGY METHOD 11/22/2024 7:20 AM [facility] RBC 2.70(L) 3.80 - 4.80 M/mcL LAB HEMETOLOGY METHOD 11/22/2024 7:20 AM [facility] Hemoglobin 8.3(L) 11.5 - 16.0 g/dL LAB HEMETOLOGY METHOD 11/22/2024 7:20 AM [facility] Hematocrit 25.9(L) 35.0 - 47.0 % LAB HEMETOLOGY METHOD 11/22/2024 7:20 AM [facility] MCV 96.6 79.0 - 98.0 FL LAB HEMETOLOGY METHOD 11/22/2024 7:20 AM [facility] MCH 31.0 27.0 - 32.0 pcg LAB HEMETOLOGY METHOD 11/22/2024 7:20 AM EST [facility] MCHC 32.0 32.0 - 37.0 g/dL LAB HEMETOLOGY METHOD 11/22/2024 7:20 AM EST [facility] RDW 15.0 11.0 - 15.0 % LAB HEMETOLOGY METHOD 11/22/2024 7:20 AM EST [facility] Platelets 273 130 - 400 K/mcL LAB HEMETOLOGY METHOD 11/22/2024 7:20 AM [facility] MPV 9.3 7.0 - 11.0 FL LAB HEMETOLOGY METHOD 11/22/2024 7:20 AM [facility] NRBC 0.0 <1.0 % LAB HEMETOLOGY METHOD 11/22/2024 7:20 AM EST [facility] NRBC Absolute 0.00 <0.10 K/mcL LAB HEMETOLOGY METHOD 11/22/2024 7:20 AM [facility] Blood Venous blood specimen / Unknown Venipuncture / Unknown 11/22/2024 6:37 AM EST 11/22/2024 7:01 AM EST us Jaz DANIELS LAB BLOOD ORDERABLES Final Resul t [facility] [address] [place] [address], * (ABNORMAL) Basic metabolic panel (11/22/2024 6:37 AM EST) Sodium 139 133 - 145 mmol/L LAB CHEMISTRY METHOD 11/22/2024 8:17 AM [facility] Potassium 4.9 3.5 - 5.5 mmol/L LAB CHEMISTRY METHOD 11/22/2024 8:17 AM EST [facility] Chloride 106 96 - 110 mmol/L LAB CHEMISTRY METHOD 11/22/2024 8:17 AM [facility] CO2 31 21 - 32 mmol/L LAB CHEMISTRY METHOD 11/22/2024 8:17 AM [facility] Anion Gap 2(L) 3 - 11 LAB CHEMISTRY METHOD 11/22/2024 8:17 AM [facility] Glucose 98 70 - 100 mg/dL LAB CHEMISTRY METHOD 11/22/2024 8:17 AM [facility] BUN 17 5 - 25 mg/dL LAB CHEMISTRY METHOD 11/22/2024 8:17 AM [facility] Creatinine 0.64 0.50 - 1.10 mg/dL LAB CHEMISTRY METHOD 11/22/2024 8:17 AM [facility] eGFR 91 >=60 mL/min/1. 73m2 LAB CHEMISTRY METHOD 11/22/2024 8:17 AM [facility] Comment:Calculation based on the??Chronic Kidney Disease Epidemiology Collaboration (CKD-EPI) equation refit??without adjustment for race. BUN/Creatinine Ratio 26.6 LAB CHEMISTRY METHOD 11/22/2024 8:17 AM [facility] Calcium 8.5 8.5 - 10.5 mg/dL LAB CHEMISTRY METHOD 11/22/2024 8:17 AM [facility] Blood Venous blood specimen / Unknown Venipuncture / Unknown 11/22/2024 6:37 AM EST 11/22/2024 7:01 AM EST us Jaz DANIELS LAB BLOOD ORDERABLES Final Resul t [facility] [address] [place] [address], * CT Head wo Contrast (11/21/2024 8:31 [...] Signed Date: 11/21/2024 08:46 ET Workstation ID: [id number] Transcribed By: Self Edit Transcribed Date: 11/21/2024 [...] Signed Date: 11/21/2024 08:46 ET Workstation ID: [id number] Transcribed By: Self Edit Transcribed Date: 11/21/2024 08:43 ET Janey DANIELS IMG CT PROCEDURES Final Resu lt * (ABNORMAL) Complete blood count (11/21/2024 5:41 AM EST) WBC 8.4 4.8 - 10.8 K/mcL LAB HEMETOLOGY METHOD 11/21/2024 7:17 AM [facility] RBC 2.70(L) 3.80 - 4.80 M/mcL LAB HEMETOLOGY METHOD 11/21/2024 7:17 AM [facility] Hemoglobin 8.2(L) 11.5 - 16.0 g/dL LAB HEMETOLOGY METHOD 11/21/2024 7:17 AM [facility] Hematocrit 26.0(L) 35.0 - 47.0 % LAB HEMETOLOGY METHOD 11/21/2024 7:17 AM [facility] MCV 96.3 79.0 - 98.0 FL LAB HEMETOLOGY METHOD 11/21/2024 7:17 AM [facility] MCH 30.4 27.0 - 32.0 pcg LAB HEMETOLOGY METHOD 11/21/2024 7:17 AM [facility] MCHC 31.5(L) 32.0 - 37.0 g/dL LAB HEMETOLOGY METHOD 11/21/2024 7:17 AM [facility] RDW 15.2(H) 11.0 - 15.0 % LAB HEMETOLOGY METHOD 11/21/2024 7:17 AM EST [facility] Platelets 235 130 - 400 K/mcL LAB HEMETOLOGY METHOD 11/21/2024 7:17 AM EST [facility] MPV 9.8 7.0 - 11.0 FL LAB HEMETOLOGY METHOD 11/21/2024 7:17 AM EST [facility] NRBC 0.0 <1.0 % LAB HEMETOLOGY METHOD 11/21/2024 7:17 AM EST [facility] NRBC Absolute 0.00 <0.10 K/mcL LAB HEMETOLOGY METHOD 11/21/2024 7:17 AM [facility] Blood Venous blood specimen / Unknown Venipuncture / Unknown 11/21/2024 5:41 AM EST 11/21/2024 6:25 AM EST us Jaz DANIELS LAB BLOOD ORDERABLES Final Resul t [facility] [address] [place] [address], [place] [phone] * (ABNORMAL) Basic metabolic panel (11/21/2024 5:41 AM EST) Sodium 138 133 - 145 mmol/L LAB CHEMISTRY METHOD 11/21/2024 7:13 AM [facility] Potassium 4.0 3.5 - 5.5 mmol/L LAB CHEMISTRY METHOD 11/21/2024 7:13 AM [facility] Chloride 104 96 - 110 mmol/L LAB CHEMISTRY METHOD 11/21/2024 7:13 AM EST [facility] CO2 29 21 - 32 mmol/L LAB CHEMISTRY METHOD 11/21/2024 7:13 AM EST [facility] Anion Gap 5 3 - 11 LAB CHEMISTRY METHOD 11/21/2024 7:13 AM EST [facility] Glucose 99 70 - 100 mg/dL LAB CHEMISTRY METHOD 11/21/2024 7:13 AM [facility] BUN 18 5 - 25 mg/dL LAB CHEMISTRY METHOD 11/21/2024 7:13 AM [facility] Creatinine 0.60 0.50 - 1.10 mg/dL LAB CHEMISTRY METHOD 11/21/2024 7:13 AM [facility] eGFR 93 >=60 mL/min/1. 73m2 LAB CHEMISTRY METHOD 11/21/2024 7:13 AM [facility] Comment:Calculation based on the??Chronic Kidney Disease Epidemiology Collaboration (CKD-EPI) equation refit??without adjustment for race. BUN/Creatinine Ratio 30.0 LAB CHEMISTRY METHOD 11/21/2024 7:13 AM [facility] Calcium 8.1(L) 8.5 - 10.5 mg/dL LAB CHEMISTRY METHOD 11/21/2024 7:13 AM [facility] Blood Venous blood specimen / Unknown Venipuncture / Unknown 11/21/2024 5:41 AM EST 11/21/2024 6:25 AM EST us Jaz DANIELS LAB BLOOD ORDERABLES Final Resul t [facility] [address] [place] [address], * (ABNORMAL) Complete blood count (11/20/2024 6:09 AM EST) WBC 7.6 4.8 - 10.8 K/mcL LAB HEMETOLOGY METHOD 11/20/2024 7:53 AM [facility] RBC 2.70(L) 3.80 - 4.80 M/mcL LAB HEMETOLOGY METHOD 11/20/2024 7:53 AM [facility] Hemoglobin 8.3(L) 11.5 - 16.0 g/dL LAB HEMETOLOGY METHOD 11/20/2024 7:53 AM EST [facility] Hematocrit 26.4(L) 35.0 - 47.0 % LAB HEMETOLOGY METHOD 11/20/2024 7:53 AM [facility] MCV 97.8 79.0 - 98.0 FL LAB HEMETOLOGY METHOD 11/20/2024 7:53 AM [facility] MCH 30.7 27.0 - 32.0 pcg LAB HEMETOLOGY METHOD 11/20/2024 7:53 AM [facility] MCHC 31.4(L) 32.0 - 37.0 g/dL LAB HEMETOLOGY METHOD 11/20/2024 7:53 AM [facility] RDW 15.4(H) 11.0 - 15.0 % LAB HEMETOLOGY METHOD 11/20/2024 7:53 AM [facility] Platelets 195 130 - 400 K/mcL LAB HEMETOLOGY METHOD 11/20/2024 7:53 AM EST [facility] MPV 10.1 7.0 - 11.0 FL LAB HEMETOLOGY METHOD 11/20/2024 7:53 AM [facility] NRBC 0.0 <1.0 % LAB HEMETOLOGY METHOD 11/20/2024 7:53 AM [facility] NRBC Absolute 0.00 <0.10 K/mcL LAB HEMETOLOGY METHOD 11/20/2024 7:53 AM [facility] Blood Venous blood specimen / Unknown Venipuncture / Unknown 11/20/2024 6:09 AM EST 11/20/2024 7:28 AM EST us Jaz DANIELS LAB BLOOD ORDERABLES Final Resul t [facility] [address] [place] [address], * (ABNORMAL) Basic metabolic panel (11/20/2024 6:09 AM EST) Sodium 138 133 - 145 mmol/L LAB CHEMISTRY METHOD 11/20/2024 8:32 AM [facility] Potassium 4.1 3.5 - 5.5 mmol/L LAB CHEMISTRY METHOD 11/20/2024 8:32 AM [facility] Chloride 106 96 - 110 mmol/L LAB CHEMISTRY METHOD 11/20/2024 8:32 AM [facility] CO2 30 21 - 32 mmol/L LAB CHEMISTRY METHOD 11/20/2024 8:32 AM [facility] Anion Gap 2(L) 3 - 11 LAB CHEMISTRY METHOD 11/20/2024 8:32 AM [facility] Glucose 94 70 - 100 mg/dL LAB CHEMISTRY METHOD 11/20/2024 8:32 AM [facility] BUN 21 5 - 25 mg/dL LAB CHEMISTRY METHOD 11/20/2024 8:32 AM [facility] Creatinine 0.67 0.50 - 1.10 mg/dL LAB CHEMISTRY METHOD 11/20/2024 8:32 AM [facility] eGFR 90 >=60 mL/min/1. 73m2 LAB CHEMISTRY METHOD 11/20/2024 8:32 AM [facility] Comment:Calculation based on the??Chronic Kidney Disease Epidemiology Collaboration (CKD-EPI) equation refit??without adjustment for race. BUN/Creatinine Ratio 31.3 LAB CHEMISTRY METHOD 11/20/2024 8:32 AM [facility] Calcium 8.3(L) 8.5 - 10.5 mg/dL LAB CHEMISTRY METHOD 11/20/2024 8:32 AM [facility] Blood Venous blood specimen / Unknown Venipuncture / Unknown 11/20/2024 6:09 AM EST 11/20/2024 7:26 AM EST us Jaz DANIELS LAB BLOOD ORDERABLES Final Resul t [facility] [address] [place] [address], * (ABNORMAL) Complete blood count (11/19/2024 6:01 AM EST) WBC 8.1 4.8 - 10.8 K/mcL LAB HEMETOLOGY METHOD 11/19/2024 7:06 AM [facility] RBC 2.70(L) 3.80 - 4.80 M/mcL LAB HEMETOLOGY METHOD 11/19/2024 7:06 AM [facility] Hemoglobin 8.3(L) 11.5 - 16.0 g/dL LAB HEMETOLOGY METHOD 11/19/2024 7:06 AM [facility] Hematocrit 25.8(L) 35.0 - 47.0 % LAB HEMETOLOGY METHOD 11/19/2024 7:06 AM [facility] MCV 95.2 79.0 - 98.0 FL LAB HEMETOLOGY METHOD 11/19/2024 7:06 AM [facility] MCH 30.6 27.0 - 32.0 pcg LAB HEMETOLOGY METHOD 11/19/2024 7:06 AM [facility] MCHC 32.2 32.0 - 37.0 g/dL LAB HEMETOLOGY METHOD 11/19/2024 7:06 AM [facility] RDW 15.6(H) 11.0 - 15.0 % LAB HEMETOLOGY METHOD 11/19/2024 7:06 AM [facility] Platelets 165 130 - 400 K/mcL LAB HEMETOLOGY METHOD 11/19/2024 7:06 AM [facility] MPV 10.4 7.0 - 11.0 FL LAB HEMETOLOGY METHOD 11/19/2024 7:06 AM [facility] NRBC 0.0 <1.0 % LAB HEMETOLOGY METHOD 11/19/2024 7:06 AM EST [facility] NRBC Absolute 0.00 <0.10 K/mcL LAB HEMETOLOGY METHOD 11/19/2024 7:06 AM [facility] Blood Venous blood specimen / Unknown Venipuncture / Unknown 11/19/2024 6:01 AM EST 11/19/2024 6:38 AM EST us Jaz DANIELS LAB BLOOD ORDERABLES Final Resul t [facility] [address] [place] [address], * (ABNORMAL) Basic metabolic panel (11/19/2024 6:01 AM EST) Sodium 139 133 - 145 mmol/L LAB CHEMISTRY METHOD 11/19/2024 7:25 AM [facility] Potassium 4.0 3.5 - 5.5 mmol/L LAB CHEMISTRY METHOD 11/19/2024 7:25 AM [facility] Chloride 108 96 - 110 mmol/L LAB CHEMISTRY METHOD 11/19/2024 7:25 AM [facility] CO2 27 21 - 32 mmol/L LAB CHEMISTRY METHOD 11/19/2024 7:25 AM [facility] Anion Gap 4 3 - 11 LAB CHEMISTRY METHOD 11/19/2024 7:25 AM [facility] Glucose 97 70 - 100 mg/dL LAB CHEMISTRY METHOD 11/19/2024 7:25 AM [facility] BUN 25 5 - 25 mg/dL LAB CHEMISTRY METHOD 11/19/2024 7:25 AM [facility] Creatinine 0.71 0.50 - 1.10 mg/dL LAB CHEMISTRY METHOD 11/19/2024 7:25 AM [facility] eGFR 88 >=60 mL/min/1. 73m2 LAB CHEMISTRY METHOD 11/19/2024 7:25 AM EST [facility] Comment:Calculation based on the??Chronic Kidney Disease Epidemiology Collaboration (CKD-EPI) equation refit??without adjustment for race. BUN/Creatinine Ratio 35.2 LAB CHEMISTRY METHOD 11/19/2024 7:25 AM EST [facility] Calcium 8.1(L) 8.5 - 10.5 mg/dL LAB CHEMISTRY METHOD 11/19/2024 7:25 AM EST [facility] Blood Venous blood specimen / Unknown Venipuncture / Unknown 11/19/2024 6:01 AM EST 11/19/2024 6:37 AM EST us Jaz DANIELS LAB BLOOD ORDERABLES Final Resul t [facility] [address] [place] [address], * MR Brain wo Contrast (11/18/2024 7:01 [...] 19:57:56 Saundra Bucio MD IMG MRI PROCEDURES Edited Resu lt - Final * CT Head wo Contrast (11/18/2024 2:24 [...] Signed Date: 11/18/2024 14:33 ET Workstation ID: [id number] Transcribed By: Self Edit Transcribed Date: 11/18/2024 [...] Signed Date: 11/18/2024 14:33 ET Workstation ID: [id number] Transcribed By: Self Edit Transcribed Date: 11/18/2024 14:28 ET Evangelina DANIELS IMG CT PROCEDURES Final Result * (ABNORMAL) TRANSTHORACIC ECHOCARDIOGRAM (TTE) COMPLETE (11/18/2024 [...] 76 mL CV PACS Left Atrium Minor Noble 5.3 cm CV PACS Left Atrium Major Noble 5.5 cm CV PACS LA Area Sys [...] Proximal 1.5 cm CV PACS MV Deceleration Miller 5.0 m/s2 CV PACS E Wave Deceleration [...] Overall the study quality was technically difficult. us Demarcus Villalobos MD CV ECHO PROCEDURES Final Resu lt * (ABNORMAL) Complete blood count (11/18/2024 5:44 AM EST) [facility] WBC 8.2 4.8 - 10.8 K/mcL LAB HEMETOLOGY METHOD 11/18/2024 7:01 AM [facility] RBC 3.00(L) 3.80 - 4.80 M/mcL LAB HEMETOLOGY METHOD 11/18/2024 7:01 AM [facility] Hemoglobin 9.0(L) 11.5 - 16.0 g/dL LAB HEMETOLOGY METHOD 11/18/2024 7:01 AM [facility] Hematocrit 27.8(L) 35.0 - 47.0 % LAB HEMETOLOGY METHOD 11/18/2024 7:01 AM [facility] MCV 94.2 79.0 - 98.0 FL LAB HEMETOLOGY METHOD 11/18/2024 7:01 AM [facility] MCH 30.5 27.0 - 32.0 pcg LAB HEMETOLOGY METHOD 11/18/2024 7:01 AM EST [facility] MCHC 32.4 32.0 - 37.0 g/dL LAB HEMETOLOGY METHOD 11/18/2024 7:01 AM [facility] RDW 15.6(H) 11.0 - 15.0 % LAB HEMETOLOGY METHOD 11/18/2024 7:01 AM [facility] Platelets 158 130 - 400 K/mcL LAB HEMETOLOGY METHOD 11/18/2024 7:01 AM [facility] MPV 10.6 7.0 - 11.0 FL LAB HEMETOLOGY METHOD 11/18/2024 7:01 AM [facility] NRBC 0.0 <1.0 % LAB HEMETOLOGY METHOD 11/18/2024 7:01 AM [facility] NRBC Absolute 0.00 <0.10 K/mcL LAB HEMETOLOGY METHOD 11/18/2024 7:01 AM [facility] Blood Venous blood specimen / Unknown Venipuncture / Unknown 11/18/2024 5:44 AM EST 11/18/2024 6:15 AM EST us Jaz DANIELS LAB BLOOD ORDERABLES Final Resul t [facility] [address] [place] [address], * (ABNORMAL) Basic metabolic panel (11/18/2024 5:44 AM EST) Sodium 140 133 - 145 mmol/L LAB CHEMISTRY METHOD 11/18/2024 7:00 AM [facility] Potassium 4.7 3.5 - 5.5 mmol/L LAB CHEMISTRY METHOD 11/18/2024 7:00 AM [facility] Chloride 108 96 - 110 mmol/L LAB CHEMISTRY METHOD 11/18/2024 7:00 AM [facility] CO2 25 21 - 32 mmol/L LAB CHEMISTRY METHOD 11/18/2024 7:00 AM [facility] Anion Gap 7 3 - 11 LAB CHEMISTRY METHOD 11/18/2024 7:00 AM [facility] Glucose 119(H) 70 - 100 mg/dL LAB CHEMISTRY METHOD 11/18/2024 7:00 AM [facility] BUN 27(H) 5 - 25 mg/dL LAB CHEMISTRY METHOD 11/18/2024 7:00 AM [facility] Creatinine 0.89 0.50 - 1.10 mg/dL LAB CHEMISTRY METHOD 11/18/2024 7:00 AM [facility] eGFR 67 >=60 mL/min/1. 73m2 LAB CHEMISTRY METHOD 11/18/2024 7:00 AM [facility] Comment:Calculation based on the??Chronic Kidney Disease Epidemiology Collaboration (CKD-EPI) equation refit??without adjustment for race. BUN/Creatinine Ratio 30.3 LAB CHEMISTRY METHOD 11/18/2024 7:00 AM [facility] Calcium 8.4(L) 8.5 - 10.5 mg/dL LAB CHEMISTRY METHOD 11/18/2024 7:00 AM [facility] Blood Venous blood specimen / Unknown Venipuncture / Unknown 11/18/2024 5:44 AM EST 11/18/2024 6:15 AM EST us Jaz DANIELS LAB BLOOD ORDERABLES Final Resul t [facility] [address] [place] [address], [place] [phone] * XR Pelvis 1-2 Views (11/17/2024 4:41 PM EST) Anatomical Region Laterality Modality Body, Pelvis Radiographic Jalyn ging 11/17/2024 4:53 PM EST Impressions 11/17/2024 4:54 PM EST Impression: Postop left femoral endoprosthesis placement, with prosthesis appearing satisfactorily positioned. Telerad FRANCES ([id number]) -------- FINAL REPORT -------- Dictated By: Muna Roblero Dictated Date: 11/17/2024 16:53 ET Assigned Physician: Muna Roblero Reviewed and Electronically Signed By: Muna Roblero Signed Date: 11/17/2024 16:54 ET Workstation ID: [id number] Transcribed By: Self Edit Transcribed Date: 11/17/2024 [...] femoral endoprosthesis placement, with prosthesis appearingsatisfactorily positioned. Telerad FRANCES ([id number]) -------- FINAL REPORT -------- Dictated By: Muna Roblero Dictated Date: 11/17/2024 16:53 ET Assigned Physician: Muna Roblero Reviewed and Electronically Signed By: Muna Roblero Signed Date: 11/17/2024 16:54 ET Workstation ID: [id number] Transcribed By: Self Edit Transcribed Date: 11/17/2024 16:53 ET Jaz DANIELS IMG XR PROCEDURES Final Result * XR Hip 1 View Left (11/17/2024 [...] Signed Date: 11/18/2024 06:58 ET Workstation ID: [id number] Transcribed By: Self Edit Transcribed Date: 11/18/2024 [...] Signed Date: 11/18/2024 06:58 ET Workstation ID: [id number] Transcribed By: Self Edit Transcribed Date: 11/18/2024 06:55 ET Elva Hester MD IMG XR PROCEDURES Final R esult * Tissue exam (11/17/2024 1:17 PM EST) Final Diagnosis Bone, left femoral head: -CONSISTENT WITH FRACTURE 11/19/2024 10:45 AM [facility] Gross Description A. [...] with some hemorrhage around the margin. A sales support representative section is submitted in one cassette following decalcification, one piece CHECO 11/19/2024 10:45 AM [facility] Disclaimer Unless otherwise specified, all tissue is 10% NB formalin fixed and paraffin embedded. 11/19/2024 10:45 AM [facility] Bone Specimen from bone / Unknown 11/17/2024 1:17 PM EST 11/17/2024 3:55 PM EST Elva Hester MD LAB PATHOLOGY ORDERABLES Final Result [facility] [address] [place] [address], * (ABNORMAL) CBC auto differential (11/17/2024 6:43 AM EST) [facility] WBC 7.4 4.8 - 10.8 K/mcL LAB HEMETOLOGY METHOD 11/17/2024 7:26 AM [facility] RBC 3.40(L) 3.80 - 4.80 M/mcL LAB HEMETOLOGY METHOD 11/17/2024 7:26 AM [facility] Hemoglobin 10.6(L) 11.5 - 16.0 g/dL LAB HEMETOLOGY METHOD 11/17/2024 7:26 AM [facility] Hematocrit 32.3(L) 35.0 - 47.0 % LAB HEMETOLOGY METHOD 11/17/2024 7:26 AM [facility] MCV 94.2 79.0 - 98.0 FL LAB HEMETOLOGY METHOD 11/17/2024 7:26 AM [facility] MCH 30.9 27.0 - 32.0 pcg LAB HEMETOLOGY METHOD 11/17/2024 7:26 AM [facility] MCHC 32.8 32.0 - 37.0 g/dL LAB HEMETOLOGY METHOD 11/17/2024 7:26 AM [facility] RDW 15.3(H) 11.0 - 15.0 % LAB HEMETOLOGY METHOD 11/17/2024 7:26 AM [facility] Platelets 150 130 - 400 K/mcL LAB HEMETOLOGY METHOD 11/17/2024 7:26 AM [facility] MPV 10.6 7.0 - 11.0 FL LAB HEMETOLOGY METHOD 11/17/2024 7:26 AM [facility] NRBC 0.0 <1.0 % LAB HEMETOLOGY METHOD 11/17/2024 7:26 AM [facility] NRBC Absolute 0.00 <0.10 K/mcL LAB HEMETOLOGY METHOD 11/17/2024 7:26 AM [facility] Neutrophils Relative 73.8 % LAB HEMETOLOGY METHOD 11/17/2024 7:26 AM [facility] Lymphocytes Relative 11.4 % LAB HEMETOLOGY METHOD 11/17/2024 7:26 AM [facility] Monocytes Relative 9.7 % LAB HEMETOLOGY METHOD 11/17/2024 7:26 AM [facility] Eosinophils Relative 4.3 % LAB HEMETOLOGY METHOD 11/17/2024 7:26 AM [facility] Basophils Relative 0.3 % LAB HEMETOLOGY METHOD 11/17/2024 7:26 AM [facility] Immature Granulocytes Relative 0.5 % LAB HEMETOLOGY METHOD 11/17/2024 7:26 AM [facility] Neutrophils Absolute 5.48 1.50 - 7.00 K/mcL LAB HEMETOLOGY METHOD 11/17/2024 7:26 AM [facility] Lymphocytes Absolute 0.85(L) 1.00 - 5.00 K/mcL LAB HEMETOLOGY METHOD 11/17/2024 7:26 AM [facility] Monocytes Absolute 0.72 0.20 - 1.00 K/mcL LAB HEMETOLOGY METHOD 11/17/2024 7:26 AM [facility] Eosinophils Absolute 0.32 0.00 - 0.50 K/mcL LAB HEMETOLOGY METHOD 11/17/2024 7:26 AM [facility] Basophils Absolute 0.02 0.00 - 0.20 K/mcL LAB HEMETOLOGY METHOD 11/17/2024 7:26 AM [facility] Immature Granulocytes Absolute 0.04(H) 0.00 - 0.03 K/mcL LAB HEMETOLOGY METHOD 11/17/2024 7:26 AM EST [facility] Blood Venous blood specimen / Unknown Venipuncture / Unknown 11/17/2024 6:43 AM EST 11/17/2024 7:07 AM EST us Bhavin Garcia MD LAB BLOOD ORDERABLES Final Re sult [facility] [address] [place] [address], * (ABNORMAL) Basic metabolic panel (11/17/2024 6:43 AM EST) Sodium 139 133 - 145 mmol/L LAB CHEMISTRY METHOD 11/17/2024 7:49 AM [facility] Potassium 3.3(L) 3.5 - 5.5 mmol/L LAB CHEMISTRY METHOD 11/17/2024 7:49 AM [facility] Chloride 107 96 - 110 mmol/L LAB CHEMISTRY METHOD 11/17/2024 7:49 AM [facility] CO2 27 21 - 32 mmol/L LAB CHEMISTRY METHOD 11/17/2024 7:49 AM [facility] Anion Gap 5 3 - 11 LAB CHEMISTRY METHOD 11/17/2024 7:49 AM [facility] Glucose 100 70 - 100 mg/dL LAB CHEMISTRY METHOD 11/17/2024 7:49 AM [facility] BUN 16 5 - 25 mg/dL LAB CHEMISTRY METHOD 11/17/2024 7:49 AM [facility] Creatinine 0.63 0.50 - 1.10 mg/dL LAB CHEMISTRY METHOD 11/17/2024 7:49 AM [facility] eGFR 91 >=60 mL/min/1. 73m2 LAB CHEMISTRY METHOD 11/17/2024 7:49 AM [facility] Comment:Calculation based on the??Chronic Kidney Disease Epidemiology Collaboration (CKD-EPI) equation refit??without adjustment for race. BUN/Creatinine Ratio 25.4 LAB CHEMISTRY METHOD 11/17/2024 7:49 AM EST [facility] Calcium 8.5 8.5 - 10.5 mg/dL LAB CHEMISTRY METHOD 11/17/2024 7:49 AM EST [facility] Blood Venous blood specimen / Unknown Venipuncture / Unknown 11/17/2024 6:43 AM EST 11/17/2024 7:12 AM EST us Bhavin Garcia MD LAB BLOOD ORDERABLES Final Re sult [facility]) [facility] [address] [place] [address], [place] [phone] * CT Angio Chest wo and/or w [...] Signed Date: 11/16/2024 10:45 ET Workstation ID: [id number] Transcribed By: Self Edit Transcribed Date: 11/16/2024 10:26 ET Narrative 11/16/2024 10:45 AM EST EXAMINATION: CTA chest with contrast. CLINICAL INDICATION: SOB. Hip fracture. Rule out PE. COMPARISON: Chest x-ray 11/16/2024. TECHNIQUE: 2.5 mm thin axial and reformatted 3 mm thin sagittal and coronal images of chest were obtained following IV 90 mL [id number]. Scanner: CEINT 64 slice VCT Dose reduction technique: ASIR [...] were obtained following IV 90 mL Isovue-370.Scanner: CEINT 64 slice VCT Dose reduction technique: ASIR [...] [place] Reviewed and Electronically Signed By: Neetu, Alli Signed Date: 11/16/2024 10:45 ET Workstation ID: [id number] Transcribed By: Self Edit Transcribed Date: 11/16/2024 10:26 ET us Rochelle DANIELS IMG CT PROCEDURES Final Resul t * Respiratory virus panel molecular study (11/16/2024 5:44 AM EST) Adenovirus Detection by PCR Not Detected Not Detected LAB MICROBIOLOGY METHOD 11/16/2024 7:20 AM EST [facility] Influenza A PCR Not Detected Not Detected LAB MICROBIOLOGY METHOD 11/16/2024 7:20 AM EST [facility] Influenza B PCR Not Detected Not Detected LAB MICROBIOLOGY METHOD 11/16/2024 7:20 AM [facility] Coronavirus 229E Not Detected Not Detected LAB MICROBIOLOGY METHOD 11/16/2024 7:20 AM [facility] Coronavirus HKU1 Not Detected Not Detected LAB MICROBIOLOGY METHOD 11/16/2024 7:20 AM [facility] Coronavirus OC43 Not Detected Not Detected LAB MICROBIOLOGY METHOD 11/16/2024 7:20 AM [facility] Coronavirus NL63 Not Detected Not Detected LAB MICROBIOLOGY METHOD 11/16/2024 7:20 AM [facility] Parainfluenza Virus 1 Not Detected Not Detected LAB MICROBIOLOGY METHOD 11/16/2024 7:20 AM [facility] Parainfluenza Virus 2 Not Detected Not Detected LAB MICROBIOLOGY METHOD 11/16/2024 7:20 AM [facility] Parainfluenza Virus 3 Not Detected Not Detected LAB MICROBIOLOGY METHOD 11/16/2024 7:20 AM [facility] Parainfluenza Virus 4 Not Detected Not Detected LAB MICROBIOLOGY METHOD 11/16/2024 7:20 AM [facility] RSV PCR Not Detected Not Detected LAB MICROBIOLOGY METHOD 11/16/2024 7:20 AM [facility] Human Metapneumovirus A and B Not Detected Not Detected LAB MICROBIOLOGY METHOD 11/16/2024 7:20 AM EST [facility] Rhinovirus/Entero virus Not Detected Not Detected LAB MICROBIOLOGY METHOD 11/16/2024 7:20 AM EST [facility] Bordetella pertussis Not Detected Not Detected LAB MICROBIOLOGY METHOD 11/16/2024 7:20 AM EST [facility] Bordetella parapertussis Not Detected Not Detected LAB MICROBIOLOGY METHOD 11/16/2024 7:20 AM EST [facility] Mycoplasma pneumo by PCR Not Detected Not Detected LAB MICROBIOLOGY METHOD 11/16/2024 7:20 AM EST [facility] Chlamydia pneumoniae Not Detected Not Detected LAB MICROBIOLOGY METHOD 11/16/2024 7:20 AM [facility] SARS COV-2 Not Detected Not Detected LAB MICROBIOLOGY METHOD 11/16/2024 7:20 AM [facility] Swab Structure of right anterior naris / Unknown Non-blood Collection / Unknown 11/16/2024 5:44 AM EST 11/16/2024 6:27 AM EST [facility] - 11/16/2024 7:20 AM EST Testing was performed using the [employer] Respiratory Pathogen PCR Assay. All results must [...] that are below the limit of detection. us Rochelle DANIELS LAB MICROBIOLOGY - GENERAL OR DERABLES Final Result [facility] [address] [place] [address], [place] [phone] * (ABNORMAL) Arterial blood gas (11/16/2024 5:42 AM EST) [facility] Signature pH, Arterial 7.47(H) 7.35 - 7.45 pH 11/16/2024 6:05 AM [facility] pCO2, Arterial 32(L) 35 - 45 mmHg 11/16/2024 6:05 AM [facility] pO2, Arterial 56(LL) 80 - 100 mmHg 11/16/2024 6:05 AM [facility] HCO3, Arterial 24.8 22.0 - 26.0 mmol/L 11/16/2024 6:05 AM [facility] O2 Sat, Arterial 89.9(L) 95.0 - 98.0 % 11/16/2024 6:05 AM [facility] Base Excess, Arterial 0.1 -2.0 - 2.0 mmol/L 11/16/2024 6:05 AM [facility] Al Test Pass Pass, Unresponsi ve, Line 11/16/2024 6:05 AM [facility] FIO2 21.00 11/16/2024 6:05 AM [facility] Blood Arterial blood specimen / Unknown Arterial Puncture / Unknown 11/16/2024 5:42 AM EST 11/16/2024 5:47 AM EST us Rochelle DANIELS LAB BLOOD ORDERABLES Final Re sult [facility] [address] [place] [address], * XR Chest 1 View (11/16/2024 4:48 [...] Signed Date: 11/16/2024 07:11 ET Workstation ID: [id number] Transcribed By: Self Edit Transcribed Date: 11/16/2024 [...] Signed Date: 11/16/2024 07:11 ET Workstation ID: [id number] Transcribed By: Self Edit Transcribed Date: 11/16/2024 07:09 ET us Rochelle DANIELS IMG XR PROCEDURES Final Resul t * CT Head wo Contrast (11/15/2024 8:03 [...] Signed Date: 11/15/2024 08:30 ET Workstation ID: [id number] Transcribed By: Self Edit Transcribed Date: 11/15/2024 08:25 ET Narrative 11/15/2024 8:30 AM EST Examination: CT brain without contrast. CLINICAL INDICATION: Follow-up subdural hematoma. COMPARISON: CT brain 11/14/2024 at 2:10 PM. TECHNIQUE: Routine 2.5 mm thin axial and reformatted 3 mm thin sagittal and coronal images of brain were obtained. Scanner: Interfoliopeed 64 slice VCT Dose reduction technique: ASIR [...] coronal images of brain were obtained. Scanner: [employer]foliope[employer] 64 sliceVCT Dose reduction technique: ASIR (Adaptive [...] Signed Date: 11/15/2024 08:30 ET Workstation ID: [id number] Transcribed By: Self Edit Transcribed Date: 11/15/2024 08:25 ET Hardik DANIELS IMG CT PROCEDURES Final Resul t * Vitamin B12 (11/15/2024 6:27 AM EST) Pathologist [facility] Vitamin B-12 265 250 - 900 pcg/mL LAB CHEMISTRY METHOD 11/15/2024 6:00 PM EST [facility] Blood Venous blood specimen / Unknown Venipuncture / Unknown 11/15/2024 6:27 AM EST 11/15/2024 7:04 AM EST Bhavin Garcia MD LAB BLOOD ORDERABLES Final Re sult [facility] [address] [place] [address], [place] [phone] * (ABNORMAL) CBC auto differential (11/15/2024 6:27 AM EST) Pathologist [facility] WBC 8.8 4.8 - 10.8 K/mcL LAB HEMETOLOGY METHOD 11/15/2024 7:22 AM EST [facility] RBC 3.60(L) 3.80 - 4.80 M/mcL LAB HEMETOLOGY METHOD 11/15/2024 7:22 AM [facility] Hemoglobin 11.0(L) 11.5 - 16.0 g/dL LAB HEMETOLOGY METHOD 11/15/2024 7:22 AM [facility] Hematocrit 34.2(L) 35.0 - 47.0 % LAB HEMETOLOGY METHOD 11/15/2024 7:22 AM [facility] MCV 95.3 79.0 - 98.0 FL LAB HEMETOLOGY METHOD 11/15/2024 7:22 AM [facility] MCH 30.6 27.0 - 32.0 pcg LAB HEMETOLOGY METHOD 11/15/2024 7:22 AM [facility] MCHC 32.2 32.0 - 37.0 g/dL LAB HEMETOLOGY METHOD 11/15/2024 7:22 AM [facility] RDW 15.2(H) 11.0 - 15.0 % LAB HEMETOLOGY METHOD 11/15/2024 7:22 AM [facility] Platelets 162 130 - 400 K/mcL LAB HEMETOLOGY METHOD 11/15/2024 7:22 AM [facility] MPV 10.8 7.0 - 11.0 FL LAB HEMETOLOGY METHOD 11/15/2024 7:22 AM [facility] NRBC 0.0 <1.0 % LAB HEMETOLOGY METHOD 11/15/2024 7:22 AM [facility] NRBC Absolute 0.00 <0.10 K/mcL LAB HEMETOLOGY METHOD 11/15/2024 7:22 AM [facility] Neutrophils Relative 83.6 % LAB HEMETOLOGY METHOD 11/15/2024 7:22 AM [facility] Lymphocytes Relative 6.8 % LAB HEMETOLOGY METHOD 11/15/2024 7:22 AM [facility] Monocytes Relative 5.8 % LAB HEMETOLOGY METHOD 11/15/2024 7:22 AM [facility] Eosinophils Relative 3.3 % LAB HEMETOLOGY METHOD 11/15/2024 7:22 AM [facility] Basophils Relative 0.2 % LAB HEMETOLOGY METHOD 11/15/2024 7:22 AM [facility] Immature Granulocytes Relative 0.3 % LAB HEMETOLOGY METHOD 11/15/2024 7:22 AM [facility] Neutrophils Absolute 7.33(H) 1.50 - 7.00 K/mcL LAB HEMETOLOGY METHOD 11/15/2024 7:22 AM [facility] Lymphocytes Absolute 0.60(L) 1.00 - 5.00 K/mcL LAB HEMETOLOGY METHOD 11/15/2024 7:22 AM [facility] Monocytes Absolute 0.51 0.20 - 1.00 K/mcL LAB HEMETOLOGY METHOD 11/15/2024 7:22 AM [facility] Eosinophils Absolute 0.29 0.00 - 0.50 K/mcL LAB HEMETOLOGY METHOD 11/15/2024 7:22 AM [facility] Basophils Absolute 0.02 0.00 - 0.20 K/mcL LAB HEMETOLOGY METHOD 11/15/2024 7:22 AM [facility] Immature Granulocytes Absolute 0.03 0.00 - 0.03 K/mcL LAB HEMETOLOGY METHOD 11/15/2024 7:22 AM [facility] Blood Venous blood specimen / Unknown Venipuncture / Unknown 11/15/2024 6:27 AM EST 11/15/2024 7:05 AM EST Demarcus Villalobos MD LAB BLOOD ORDERABLES Final Re sult [facility] [address] [place] [address], [place] [phone] * Magnesium (11/15/2024 6:27 AM EST) [facility] Magnesium 2.0 1.9 - 2.6 mg/dL LAB CHEMISTRY METHOD 11/15/2024 8:39 AM EST [facility] Blood Venous blood specimen / Unknown Venipuncture / Unknown 11/15/2024 6:27 AM EST 11/15/2024 7:04 AM EST Demarcus Villalobos MD LAB BLOOD ORDERABLES Final Luh moise Performing Organization Address [facility] Co de Phone Number [facility] [address] [place] [address], * (ABNORMAL) Basic metabolic panel (11/15/2024 6:27 AM EST) [facility] Sodium 139 133 - 145 mmol/L LAB CHEMISTRY METHOD 11/15/2024 8:43 AM [facility] Potassium 3.6 3.5 - 5.5 mmol/L LAB CHEMISTRY METHOD 11/15/2024 8:43 AM [facility] Chloride 108 96 - 110 mmol/L LAB CHEMISTRY METHOD 11/15/2024 8:43 AM [facility] CO2 24 21 - 32 mmol/L LAB CHEMISTRY METHOD 11/15/2024 8:43 AM [facility] Anion Gap 7 3 - 11 LAB CHEMISTRY METHOD 11/15/2024 8:43 AM [facility] Glucose 114(H) 70 - 100 mg/dL LAB CHEMISTRY METHOD 11/15/2024 8:43 AM [facility] BUN 22 5 - 25 mg/dL LAB CHEMISTRY METHOD 11/15/2024 8:43 AM [facility] Creatinine 0.77 0.50 - 1.10 mg/dL LAB CHEMISTRY METHOD 11/15/2024 8:43 AM [facility] eGFR 80 >=60 mL/min/1. 73m2 LAB CHEMISTRY METHOD 11/15/2024 8:43 AM [facility] Comment:Calculation based on the??Chronic Kidney Disease Epidemiology Collaboration (CKD-EPI) equation refit??without adjustment for race. BUN/Creatinine Ratio 28.6 LAB CHEMISTRY METHOD 11/15/2024 8:43 AM [facility] Calcium 8.5 8.5 - 10.5 mg/dL LAB CHEMISTRY METHOD 11/15/2024 8:43 AM [facility] Blood Venous blood specimen / Unknown Venipuncture / Unknown 11/15/2024 6:27 AM EST 11/15/2024 7:04 AM EST us Demarcus Villalobos MD LAB BLOOD ORDERABLES Final Re sult Performing Organization Address City/[facility]/ZIP Co de Phone Number [facility] [address] [place] [address], * Activated partial thromboplastin time (11/14/2024 8:37 PM EST) [facility] aPTT 32.2 24.1 - 39.3 sec LAB COAGULATION METHOD 11/14/2024 9:02 PM EST [facility] Blood Venous blood specimen / Unknown Venipuncture / Unknown 11/14/2024 8:37 PM EST 11/14/2024 8:49 PM EST us Hardik DANIELS LAB BLOOD ORDERABLES Final Re sult [facility] [address] [place] [address], [place] [phone] * Prothrombin time with INR (11/14/2024 8:37 PM EST) Protime 12.0 10.6 - 13.9 sec LAB COAGULATION METHOD 11/14/2024 9:02 PM EST [facility] INR 1.0 LAB COAGULATION METHOD 11/14/2024 9:02 PM EST [facility] Blood Venous blood specimen / Unknown Venipuncture / Unknown 11/14/2024 8:37 PM EST 11/14/2024 8:49 PM EST us Hardik DANIELS LAB BLOOD ORDERABLES Final Re sult [facility]) [facility] [address] [place] [address], * CT Head wo Contrast (11/14/2024 2:27 [...] Signed Date: 11/14/2024 14:51 ET Workstation ID: [id number] Transcribed By: Self Edit Transcribed Date: 11/14/2024 [...] Signed Date: 11/14/2024 14:51 ET Workstation ID: [id number] Transcribed By: Self Edit Transcribed Date: 11/14/2024 14:41 ET Aleida DANIELS IM CT PROCEDURES Final Resul t * (ABNORMAL) Culture urine (11/14/2024 1:58 PM EST) Culture, Urine >100,000 CFU/mL Escherichia coli ESBL(A) CLINT 11/17/2024 11:51 AM EST [facility] Comment:THIS ORGANISM IS POS ITIVE [...] ug/ml: Susceptible Aleida DANIELS LAB MICROBIOLOGY - GENERAL OR DERABLES Final Result Performing Organization Address [facility]/ZIP Co de Phone Number [facility] [address] [place] [address], [place] [phone] * Estrada urine culture tube (11/14/2024 1:58 PM EST) Extra Tube Hold for add-ons. 11/14/2024 4:02 PM EST [facility] Comment:Auto resulted. Urine Urinary bladder structure / Unknown Non-blood Collection / Unknown 11/14/2024 1:58 PM EST 11/14/2024 2:20 PM EST Aleida DANIELS LAB URINE ORDERABLES Final Re sult Performing Organization Address [facility]/State/ZIP Co de Phone Number [facility] [address] [place] [address], [place] [phone] * (ABNORMAL) Urinalysis with reflex microscopic and culture (11/14/2024 1:58 PM EST) Specific [place] Urine 1.021 1.003 - 1.030 LAB URINALYSIS - AUTOMATED METHOD 11/14/2024 2:32 PM [facility] pH, Urine 6.0 5.0 - 8.0 pH LAB URINALYSIS - AUTOMATED METHOD 11/14/2024 2:32 PM [facility] Leukocytes, Urine Small(A) Negative LAB URINALYSIS - AUTOMATED METHOD 11/14/2024 2:32 PM [facility] Nitrite, Urine Negative Negative LAB URINALYSIS - AUTOMATED METHOD 11/14/2024 2:32 PM [facility] Protein, Urine 30(A) <=Trace mg/dL LAB URINALYSIS - AUTOMATED METHOD 11/14/2024 2:32 PM [facility] Glucose, Urine Negative Negative mg/dL LAB URINALYSIS - AUTOMATED METHOD 11/14/2024 2:32 PM [facility] Ketones, Urine Trace(A) Negative mg/dL LAB URINALYSIS - AUTOMATED METHOD 11/14/2024 2:32 PM [facility] Urobilinogen , Urine 1.0 0.2 - 1.0 mg/dL LAB URINALYSIS - AUTOMATED METHOD 11/14/2024 2:32 PM [facility] Bilirubin, Urine Negative Negative LAB URINALYSIS - AUTOMATED METHOD 11/14/2024 2:32 PM [facility] Blood, Urine Moderate(A) Negative LAB URINALYSIS - AUTOMATED METHOD 11/14/2024 2:32 PM [facility] RBC, Urine 9.2(H) 0 - 4 /HPF LAB URINALYSIS - AUTOMATED METHOD 11/14/2024 2:32 PM [facility] WBC, Urine 28.1(H) 0 - 4 /HPF LAB URINALYSIS - AUTOMATED METHOD 11/14/2024 2:32 PM [facility] Squamous Epithelial, Urine 37 0 - 60 /LPF LAB URINALYSIS - AUTOMATED METHOD 11/14/2024 2:32 PM EST [facility] Bacteria, Urine Many(A) Negative /HPF LAB URINALYSIS - AUTOMATED METHOD 11/14/2024 2:32 PM EST [facility] Hyaline Casts, Urine 0.8 0 - 3 /LPF LAB URINALYSIS - AUTOMATED METHOD 11/14/2024 2:32 PM EST [facility] Urine Urinary bladder structure / Unknown Non-blood Collection / Unknown 11/14/2024 1:58 PM EST 11/14/2024 2:20 PM EST Aleida DANIELS LAB URINE ORDERABLES Final Re sult [facility] [address] [place] [address], * CT Lower Extremity wo Contrast Left [...] Signed Date: 11/14/2024 12:30 ET Workstation ID: [id number] Transcribed By: Self Edit Transcribed Date: 11/14/2024 [...] Signed Date: 11/14/2024 12:30 ET Workstation ID: [id number] Transcribed By: Self Edit Transcribed Date: 11/14/2024 12:26 ET Aleida DANIELS IM CT PROCEDURES Final Resul t * Troponin I high sensitivity (11/14/2024 11:25 AM EST) High Sensitivity Troponin I 10 <=54 ng/L LAB CHEMISTRY METHOD 11/14/2024 12:49 PM EST [facility] Blood Venous blood specimen / Unknown Venipuncture / Unknown 11/14/2024 11:25 AM EST 11/14/2024 11:56 AM EST Narrative [facility] - 11/14/2024 12:49 PM EST High levels of biotin in samples may falsely decrease hsTroponin values. ??Use caution when interpreting hsTroponin results in patients taking biotin who exhibit renal impairment (eGFR <60) or in patients taking more than 20 mg/day of biotin. us Aleida DANIELS LAB BLOOD ORDERABLES Final Re sult [facility] [place] ([facility] [[email or web address] [address] [place] [address], * XR Chest 1 View (11/14/2024 11:03 AM EST) Anatomical Region Laterality Modality Body Radiographic Jalyn ging 11/14/2024 11:0 8 AM EST Impressions 11/14/2024 11:08 AM EST No acute findings. -------- FINAL REPORT -------- Dictated By: Vinayak Austin Dictated Date: 11/14/2024 11:08 ET Assigned Physician: Vinayak Austin Reviewed and Electronically Signed By: Vinayak Austin Signed Date: 11/14/2024 11:08 ET Workstation ID: [id number] Transcribed By: Self Edit Transcribed Date: 11/14/2024 [...] Signed Date: 11/14/2024 11:08 ET Workstation ID: [id number] Transcribed By: Self Edit Transcribed Date: 11/14/2024 11:08 ET Aleida DANIELS IMG XR PROCEDURES Final Resul t * XR Hip 2-3 Views Left (11/14/2024 [...] Signed Date: 11/14/2024 11:08 ET Workstation ID: [id number] Transcribed By: Self Edit Transcribed Date: 11/14/2024 [...] Signed Date: 11/14/2024 11:08 ET Workstation ID: [id number] Transcribed By: Self Edit Transcribed Date: 11/14/2024 11:05 ET Aleida DANIELS IMG XR PROCEDURES Final Resul t * CT Head wo Contrast (11/14/2024 10:23 [...] Signed Date: 11/14/2024 10:36 ET Workstation ID: [id number] Transcribed By: Self Edit Transcribed Date: 11/14/2024 [...] Signed Date: 11/14/2024 10:36 ET Workstation ID: [id number] Transcribed By: Self Edit Transcribed Date: 11/14/2024 10:30 ET us Aleida DANIELS IMG CT PROCEDURES Final Resul t * (ABNORMAL) Thyroid stimulating hormone (11/14/2024 9:58 AM EST) [facility] TSH 48.69(H) 0.40 - 4.00 mcIU/mL LAB CHEMISTRY METHOD 11/15/2024 6:35 AM EST [facility] Blood Venous blood specimen / Unknown Venipuncture / Unknown 11/14/2024 9:58 AM EST 11/14/2024 10:25 AM EST Demarcus Villalobos MD LAB BLOOD ORDERABLES Final Re sult [facility] [address] [place] [address], [place] [phone] * (ABNORMAL) CBC auto differential (11/14/2024 9:58 AM EST) [facility] WBC 11.6(H) 4.8 - 10.8 K/mcL LAB HEMETOLOGY METHOD 11/14/2024 10:32 AM [facility] RBC 4.10 3.80 - 4.80 M/mcL LAB HEMETOLOGY METHOD 11/14/2024 10:32 AM [facility] Hemoglobin 12.3 11.5 - 16.0 g/dL LAB HEMETOLOGY METHOD 11/14/2024 10:32 AM [facility] Hematocrit 38.2 35.0 - 47.0 % LAB HEMETOLOGY METHOD 11/14/2024 10:32 AM [facility] MCV 94.1 79.0 - 98.0 FL LAB HEMETOLOGY METHOD 11/14/2024 10:32 AM [facility] MCH 30.3 27.0 - 32.0 pcg LAB HEMETOLOGY METHOD 11/14/2024 10:32 AM [facility] MCHC 32.2 32.0 - 37.0 g/dL LAB HEMETOLOGY METHOD 11/14/2024 10:32 AM [facility] RDW 15.2(H) 11.0 - 15.0 % LAB HEMETOLOGY METHOD 11/14/2024 10:32 AM [facility] Platelets 214 130 - 400 K/mcL LAB HEMETOLOGY METHOD 11/14/2024 10:32 AM [facility] MPV 10.4 7.0 - 11.0 FL LAB HEMETOLOGY METHOD 11/14/2024 10:32 AM [facility] NRBC 0.0 <1.0 % LAB HEMETOLOGY METHOD 11/14/2024 10:32 AM [facility] NRBC Absolute 0.00 <0.10 K/mcL LAB HEMETOLOGY METHOD 11/14/2024 10:32 AM [facility] Neutrophils Relative 88.1 % LAB HEMETOLOGY METHOD 11/14/2024 10:32 AM [facility] Lymphocytes Relative 4.8 % LAB HEMETOLOGY METHOD 11/14/2024 10:32 AM [facility] Monocytes Relative 6.4 % LAB HEMETOLOGY METHOD 11/14/2024 10:32 AM [facility] Eosinophils Relative 0.0 % LAB HEMETOLOGY METHOD 11/14/2024 10:32 AM [facility] Basophils Relative 0.1 % LAB HEMETOLOGY METHOD 11/14/2024 10:32 AM [facility] Immature Granulocytes Relative 0.6 % LAB HEMETOLOGY METHOD 11/14/2024 10:32 AM [facility] Neutrophils Absolute 10.24(H) 1.50 - 7.00 K/mcL LAB HEMETOLOGY METHOD 11/14/2024 10:32 AM [facility] Lymphocytes Absolute 0.56(L) 1.00 - 5.00 K/mcL LAB HEMETOLOGY METHOD 11/14/2024 10:32 AM EST [facility] Monocytes Absolute 0.74 0.20 - 1.00 K/[facility] LAB HEMETOLOGY METHOD 11/14/2024 10:32 AM EST [facility] Eosinophils Absolute 0.00 0.00 - 0.50 K/[facility] LAB HEMETOLOGY METHOD 11/14/2024 10:32 AM EST [facility] Basophils Absolute 0.01 0.00 - 0.20 K/[facility] LAB HEMETOLOGY METHOD 11/14/2024 10:32 AM [facility] Immature Granulocytes Absolute 0.07(H) 0.00 - 0.03 K/[facility] LAB HEMETOLOGY METHOD 11/14/2024 10:32 AM [facility] Blood Venous blood specimen / Unknown Venipuncture / Unknown 11/14/2024 9:58 AM EST 11/14/2024 10:25 AM EST us Aleida DANIELS LAB BLOOD ORDERABLES Final Re sult [facility] [address] [place] [address], * (ABNORMAL) Comprehensive metabolic panel (11/14/2024 9:58 AM EST) Sodium 137 133 - 145 mmol/L LAB CHEMISTRY METHOD 11/14/2024 11:56 AM [facility] Potassium 3.6 3.5 - 5.5 mmol/L LAB CHEMISTRY METHOD 11/14/2024 11:56 AM [facility] Chloride 107 96 - 110 mmol/L LAB CHEMISTRY METHOD 11/14/2024 11:56 AM [facility] CO2 25 21 - 32 mmol/L LAB CHEMISTRY METHOD 11/14/2024 11:56 AM [facility] Anion Gap 5 3 - 11 LAB CHEMISTRY METHOD 11/14/2024 11:56 AM [facility] Glucose 130(H) 70 - 100 mg/dL LAB CHEMISTRY METHOD 11/14/2024 11:56 AM [facility] BUN 24 5 - 25 mg/dL LAB CHEMISTRY METHOD 11/14/2024 11:56 AM [facility] Creatinine 0.96 0.50 - 1.10 mg/dL LAB CHEMISTRY METHOD 11/14/2024 11:56 AM [facility] eGFR 61 >=60 mL/min/1. 73m2 LAB CHEMISTRY METHOD 11/14/2024 11:56 AM [facility] Comment:Calculation based on the??Chronic Kidney Disease Epidemiology Collaboration (CKD-EPI) equation refit??without adjustment for race. BUN/Creatinine Ratio 25.0 LAB CHEMISTRY METHOD 11/14/2024 11:56 AM [facility] Calcium 8.9 8.5 - 10.5 mg/dL LAB CHEMISTRY METHOD 11/14/2024 11:56 AM [facility] AST (SGOT) 52(H) 10 - 42 unit/L LAB CHEMISTRY METHOD 11/14/2024 11:56 AM [facility] Comment:Results verified by repeat testing ALT (SGPT) 40 10 - 60 unit/L LAB CHEMISTRY METHOD 11/14/2024 11:56 AM [facility] Comment:Results verified by repeat testing Alkaline Phosphatase 81 42 - 121 unit/L LAB CHEMISTRY METHOD 11/14/2024 11:56 AM [facility] Total Protein 6.8 6.0 - 8.0 g/dL LAB CHEMISTRY METHOD 11/14/2024 11:56 AM [facility] Albumin 3.9 3.2 - 5.0 g/dL LAB CHEMISTRY METHOD 11/14/2024 11:56 AM [facility] Total Bilirubin 1.0 0.0 - 1.4 mg/dL LAB CHEMISTRY METHOD 11/14/2024 11:56 AM [facility] Blood Venous blood specimen / Unknown Venipuncture / Unknown 11/14/2024 9:58 AM EST 11/14/2024 10:25 AM EST us Aleida DANIELS LAB BLOOD ORDERABLES Final Re sult Performing Organization Address [facility] Co de Phone Number [facility] [address] [place] [address], [place] [phone] * Troponin I high sensitivity (11/14/2024 9:58 AM EST) Pathologist [facility] High Sensitivity Troponin I 10 <=54 ng/L LAB CHEMISTRY METHOD 11/14/2024 10:55 AM EST [facility] Blood Venous blood specimen / Unknown Venipuncture / Unknown 11/14/2024 9:58 AM EST 11/14/2024 10:25 AM EST Narrative [facility] - 11/14/2024 10:55 AM EST High levels of biotin in samples may falsely decrease hsTroponin values. ??Use caution when interpreting hsTroponin results in patients taking biotin who exhibit renal impairment (eGFR <60) or in patients taking more than 20 mg/day of biotin. us Aleida DANIELS LAB BLOOD ORDERABLES Final Re sult Performing Organization Address [facility] Co de Phone Number [facility] [address] [place] [address], [place] [phone] * (ABNORMAL) Creatine kinase (11/14/2024 9:58 AM EST) Pathologist [facility] Total CK 668(H) 22 - 269 unit/L LAB CHEMISTRY METHOD 11/14/2024 11:20 AM EST [facility] Blood Venous blood specimen / Unknown Venipuncture / Unknown 11/14/2024 9:58 AM EST 11/14/2024 10:25 AM EST Aleida DANIELS LAB BLOOD ORDERABLES Final Re sult Performing Organization Address [facility]/ZIP Co de Phone Number [facility] [[email or web address] [address] [place] [address], [place] [phone] * ECG 12 lead (11/14/2024 9:41 AM EST) Ventricular Rate ECG 80 BPM GEMUSE Atrial Rate 80 BPM GEMUSE P-R Interval 126 ms GEMUSE QRS Duration 80 ms GEMUSE Q-T Interval 430 ms GEMUSE QTc 495 ms GEMUSE R Noble 31 degrees GEMUSE T Noble -53 degrees GEMUSE ECG Interpretation Normal sinus rhythm Nonspecific T wave abnormality Abnormal ECG No previous ECGs available Confirmed by HELADIO SIMMONS ([id number]) on 11/14/2024 5:33:44 PM GEMUSE 11/14/2024 9:41 AM EST 11/14/2024 5:33 PM EST Román Guzman MD ECG ORDERABLES Final Resul t Performing Organization Address [facility] Co de Phone Number GEMUSE * CO CRITICAL CARE EACH ADDITIONAL 30 MINUTES, CO CRITICAL CARE EACH ADDITIONAL 30 MINUTES, CO CRITICAL CARE EACH ADDITIONAL 30 MINUTES (11/14/2024 [...] yes ?Care discussed with: admitting provider ?? Result [facility] Román Guzman MD IN CLINIC/BEDSIDE ORDERABLE S Final Result * ECG-Annotated (11/14/2024) Provider Onbase MD ECG ORDERABLES Final Result documented in this encounter Visit Diagnoses Diagnosis [...] Indication: VTE Prophylaxis, Indications: Prophylaxis of Venous ThromboembolismIndications:Pr ophylaxis of Venous Thromboembolism Given 11/26/2024 10:09 AM [...] 2 tablet, oral, Nightly, First dose on Mon /20/25 at 2100, Recovery & On [address] [...] JAMMIE)215 (Given - Provider: Bridgett Guevara RN) 1012 [...] Bridgett Guevara RN)1410 (Given - Provider: Joseph Arita, JAMMIE) oxyCODONE (ROXICODONE) immediate release tablet 5 mg [...] sodium chloride 0.9 % 100 mL IVPB 11/14/2024 Nursing Count Last Ordered Date First Orde red Date MISCELLANEOUS NURSING CARE ORDER (SPECIFY) 11/14/2024 NURSING SWALLOW SCREEN 1 11/14/2024 OT Count Last Ordered Date First Orde red Date OT EVAL AND TREAT 1 11/17/2024 Respiratory Care Count Last Ordered Date First Ordered Date OXYGEN THERAPY, ADULT 1 11/17/2024 SENIOR HR GENERALIST Count Last Ordered Date First Orde red Date SENIOR HR GENERALIST SWALLOW EVAL AND TREAT 1 11/14/2024 IV [...] documented as of this encounter Care Teams Electric Welder Relationship Specialty Start Date End Date Garcia Doran MD [address] [place] [id number] PCP - General Internal Medicine 01/11/22 documented as of this encounter
--- OUTSIDE RECORDS SUMMARY | 2024-12-08 06:17 | XMS_ITS | Encounter Summary ---
Author Organization [facility] Address [address] [place] [address] Care Team Providers Care Survey Project Manager Name Role Phone Garcia Doran MD Primary Care Provider [phone] Encounter Details Date Type Department Care Team (Late st Contact Info) Description 11/24/2024 Telephone Neurosurgery [facility] [address] [place] [address] Mariah Lucio MA Social History [...] care for your loved ones. For example, director of early childhood education or elderly care [...] documented in this encounter Progress Notes * Mariah Lucio MA - 11/24/2024 11:15 AM EST Called and spoke with Patrick regarding follow up head CT and office visit. CT booked for 12/05/24 with a 10:30 arrival, patient will come to the office following study. Per Patrick patient will be headed to [facility] today or tomorrow, I called the floor at [facility] and also spoke with community education coordinator who will make sure details of these appointments are given to rehab facility. 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
--- OUTSIDE RECORDS SUMMARY | 2024-12-08 06:17 | XMS_ITS | Clinical Summary ---
Author Organization [facility] Address [address] [place] [address] Phone Care Team Providers Care Fuel Manager Name Role Phone [facility], Unavailable [phone] Christofer Torres MD Primary Care Provider [phone] Reason for Visit and Chief Complaint Post Op Visit/Follow Up Plan of Treatment Future Appointments Date Time Location Provi petr Post Op Visit/Follow Up 12/09/2024 9:00AM [facility], Chinmay Wise MD Last Documented On 8:52AM ; [facility], Assessments Includes: Assessments from this encounter No [...] from this encounter No Physical Exam Recorded Insurance Includes: Active Insurance Policies Plan Name Member ID Group # Subscriber Relationship Effect niall Dates - [facility] [id number] Isabela Rios Self Clinical Notes Includes: Clinical Notes from this encounter No Clinical Notes Recorded
--- OUTSIDE RECORDS SUMMARY | 2024-12-08 06:17 | XMS_ITS | Clinical Summary ---
Author Organization [facility] Address [address] [place] [address] Care Team Providers Care Correctional Corporal Name Role Phone Garcia Doran MD Primary Care Provider [phone] Allergies No known active allergies Medications ferrous sulfate 325 mg (65 mg elemental iron) tablet Take by mouth. Active multivitamin (MULTIPLE VITAMINS ORAL) Take by mouth. Active citalopram (CeleXA) 20 mg tablet Please take 1.5 tablet daily 135 tablet 1 024 Active levothyroxine (SYNTHROID, LEVOTHROID) 75 mcg tablet Take 1 tablet (75 mcg total) by mouth 1 (one) time each day. Active melatonin 3 mg tablet Take 1 tablet (3 mg total) by mouth at bedtime. Active senna-docusate (PERICOLACE) 8.6-50 mg per tablet Take 2 tablets by mouth at bedtime. 025 2024 Active heparin sodium,porcine (heparin, UFH,) 5,000 unit/mL injectionIndicatio ns:Prophylaxis of Venous Thromboembolism Inject 1 mL (5,000 Units total) under the skin every 12 (twelve) hours. 025 Active amLODIPine (NORVASC) 2.5 mg tablet TAKE 1 TABLET BY MOUTH DAILY 100 tablet 1 025 Active levothyroxine (SYNTHROID, LEVOTHROID) 50 mcg tablet TAKE 1 TABLET BY MOUTH DAILY 100 tablet 2 024 2024 Discontinued diclofenac (VOLTAREN) 1 % topical gel Apply 1 g topically 3 (three) times a day for 10 days. 60 g 025 2024 Discontinued(S top Taking at Discharge) acetaminophen (TYLENOL) 500 mg tablet Take 2 tablets (1,000 mg total) by mouth every 8 (eight) hours for 10 days. 025 2024 amLODIPine (NORVASC) 2.5 mg tablet Take 1 tablet (2.5 mg total) by mouth 1 (one) time each day. 025 2024 Discontinued oxyCODONE (ROXICODONE) 5 mg immediate release tablet Take 1 tablet (5 mg total) by mouth every 4 (four) hours if needed (moderate pain or when therapies for mild pain were not effective) for up to 1 day. Max Daily Amount: 30 mg 6 tablet 025 2024 Active Problems Problem Noted Date Diagnosed Date Closed fracture of left hip 11/14/2024 Acute subdural hematoma 11/14/2024 Assessment & Plan (12/05/2024 12:36 PM EST): Patient was seen in the hospital for right subdural hematoma after a fall, is s/p left hip hemiarthroplasty by Dr Coon on 11/17/24, postop was put on subcu heparin to prevent blood clot, but patient and family aware there was risk of increased subdural hematoma on blood thinners. Overall patient has been doing well at rehab, [facility], she has been doing physical therapy, walking [...] of giving it more time, waiting and follow-up CAT scans versus surgery. I will reach out to Dr. Coon (orthopedics) to see if she would be cleared to stop the subcu heparin which can contribute to subdural hematoma and would need to be stopped for surgery. Patient and her family think they would like to proceed with bur hole drainage of subdural hematoma, risks and benefits discussed in detail, postop expectations/restrictions. All questions answered. Osteoporosis 10/11/2023 Hyperlipidemia 09/16/2017 Depression 07/06/2017 Osteopenia 07/06/2017 Anxiety 06/11/2017 HTN (hypertension) 06/11/2017 Hypothyroidism 06/11/2017 Encounters Date Type Department Care Team Description 12/05/2024 11:15 AM EST Office Visit Neurosurgery [address] [phone] Ashley Davis PA Acute subdural hematoma (CMS/HCC) (Primary Dx) 12/05/2024 9:48 AM EST - 12/05/2024 11:59 PM EST Hospital Encounter [facility] CT Scan [address] [place] [address] Acute subdural hematoma (CMS/HCC) Discharge Disposition: Home or Self Care 11/24/2024 Telephone Neurosurgery [address] [phone] Mariah Lucio MA 11/17/2024 1:00 PM EST - 11/17/2024 3:[address] [facility] Main OR [address] [place] [phone] Sami Coon MD HEMIARTHROPLASTY LEFT HIP, CEMENTED, POSTERIOR APPROACH [58906 (CPT??)] 11/17/2024 12:18 PM EST Anesthesia Event [facility] Main OR [address] [place] [phone] Dequan Kelsey DO Walsh, Michael, DO 11/14/2024 9:22 AM EST - 11/26/2024 7:07 PM EST Hospital Encounter [facility] Surgical Unit [address] [place] [phone] Román Guzman MD Flores, Carlos M, MD Kim, Tae Hyong, DO Zipagan, James T, MD Japaridze, Anna, MD Bell, Alistair A, MD Subdural hematoma (CMS/HCC) (Primary Dx); Closed fracture of left hip, initial encounter (CMS/HCC); Syncope, unspecified syncope type; Hypoxia; Hip fracture requiring operative repair, left, closed, initial encounter (CMS/HCC) Discharge Disposition: [facility]it[facility] Facility 11/10/2024 2:00 PM EST Office Visit Walk-In Clinic - [address] [phone] Edgar Esqueda PA Fall, initial encounter (Primary Dx) from Last 3 Months Immunizations Name Administration [...] Surgery Date Site/Laterality Comments WISDOM TOOTH EXTRACTION HIP FRACTURE SURGERY 11/17/2024 Left hip hemiarthroplasty performed by Dr Coon Medical History Medical History Date Comments Hypothyroidism 06/11/2017 HTN (hypertension) 06/11/2017 Anxiety 06/11/2017 Depression 07/06/2017 DX:Depression Osteopenia 07/06/2017 Family History Medical History Relation Name Comments [...] care for your loved ones. For example, childcare worker or elderly care for an older adult? [...] on file Sexual Orientation Not on file Obstetrics History Last Filed Vital Signs Vital Sign Reading Time Taken Comments Blood Pressure 128/65 11/26/2024 2:09 PM EST Pulse 76 11/26/2024 2:09 PM EST Temperature 36.7 ??C (98.1 ??F) 11/26/2024 2:09 PM ES T Respiratory Rate 18 11/26/2024 2:09 PM EST Oxygen Saturation 98% 11/26/2024 2:09 PM EST Inhaled Oxygen Concentration - - Weight 65.3 kg (144 lb) 12/05/2024 11:02 AM EST Height 165.1 cm (5' 5 ) 12/05/2024 11:02 AM EST Body Mass Index 23.96 12/05/2024 11:02 AM EST Plan of Treatment Upcoming Encounters Date Type Department Care Team (Late st Contact Info) Description 03/06/2025 11:30 AM EDT Office Visit [facility] [address] [place] [address] Garcia Doran MD [address] [place] [address] Health Maintenance Due Date Last Done Comments Zoster Vaccines (1 of 2) 1997 RSV Immunization Patients 60+ Years Old (1 - 1-dose 75+ series) 2022 DTaP,Tdap,and Td Vaccines (3 - Td or Tdap) 01/31/2024 08/01/2023, 02/05/2013 Influenza Vaccine (#1) 2024 , 10/18/2021, 08/05/2020, Additional history exists Medicare Annual Wellness Visit 10/25/2024 10/25/2023 Depression Screening 08/31/2025 08/31/2024, 10/25/20 23 Colorectal Cancer Screening: FIT-DNA (Cologuard) 11/07/2025 11/07/2022 Social Influencers of Health Screening 11/14/2025 11/14/2024 Falls Risk Assessment 11/26/2025 11/26/2024, 024 Hypertension/CHF/CAD Annual BMP Blood Test 11/26/2025 11/26/2024, 11/25/2024, 11/24/2024, Additional history exists Cholesterol Screening (Lipid Panel) 09/03/2029 09/03/2024, 02/28/2024, 02/28/2024 Osteoporosis Screening (Bone Density Screening) 10/04/2033 10/04/2023 Hepatitis C Screening Completed 04/22/2018 Breast Cancer Screening Discontinued 04/10/20, 04/04/2022, 03/31/2021 Pneumococcal Vaccine: 50+ Years Completed 08/01/2023, 11/15/2020, 10/03/2011 COVID-19 Vaccine Completed 08/07/2024, , 11/22/2022, Additional history exists HIB Vaccines Aged Out [...] patient's age to complete this topic Meningococcal B Vacine Aged Out No lo nger eligible based on patient's age to complete this topic RSV Immunization Patients Under 20 months Aged Out No longer eligible based on patient's age to complete this topic Varicella Vaccines Aged Out No longer eligible based on patient's age to complete this topic Medical Devices Implanted Type Area Senior Security Architect Device Identifier Shelf Expiration Date Model / Serial / Lot Kit Prep Total Hip Bone Imp - Sna - [id number] Implanted:Qty: 1 on 11/17/2024 by Sami Coon MD at [facility] Bone Cement Left: Hip [employer] 06/24/2034 [id number] / NA / [id number] Cement Bone Surg Simplex Radiopq - Sna - [id number] Implanted:Qty: 1 on 11/17/2024 by Sami Coon MD at [facility] Bone Cement Left: Hip [employer] 12/26/2026 6191-1-01 0 / NA / [id number] Cement Bone Surg Simplex Radiopq - Sna - [id number] Implanted:Qty: 1 on 11/17/2024 by Sami Coon MD at [facility] Bone Cement Left: Hip [employer] 12/26/2026 6191-1-01 0 / NA / [id number] Hip Stem Fem C-Cmnt 132d 6x158 - Sna - [id number] Implanted:Qty: 1 on 11/17/2024 by Sami Coon MD at [facility] Joints Hip Left: Hip [employer] [id number] 09/30/2028 2953-5612 D / NA / [id number] Hip Spacr Distl Univ 9mm - Sna - [id number] Implanted:Qty: 1 on 11/17/2024 by Sami Coon MD at [facility] Joints Hip Left: Hip [employer] [id number] 07/07/2029 1026-8255 / NA / [id number] Hip Head Bipolar Uhr 80z93bp - Sna - [id number] Implanted:Qty: 1 on 11/17/2024 by Sami Coon MD at [facility] Joints Hip Left: Hip [employer] [id number] 03/11/2028 UH1-49-26 / NA / [id number] Hip Head Cocr L Fit 26mm/-3 - Sna - [id number] Implanted:Qty: 1 on 11/17/2024 by Sami Coon MD at [facility] Joints Hip Left: Hip [employer] [id number] 01/10/2028 6260-9-02 6 / NA / [id number] Procedures Procedure Name Priority Date/Time Associated Diagnosis Comments CT HEAD WO CONTRAST Routine 12/05/2024 10:26 AM EST Acute subdural hematoma (CMS/HCC) COMPLETE BLOOD COUNT Routine 11/26/2024 5:49 AM [...] operative repair, left, closed, initial encounter ([facility]) TH AN ENDOTRACHEAL(NO CHARGE) Routine 11/17/2024 12:46 PM EST SD HEMIARTHROPLASTY HIP PARTIAL 11/17/2024 12:14 PM EST Hip fracture requiring operative repair, left, closed, initial encounter ([facility]) Case Notes c arm, implants, lateral position [...] 11/14/2024 9:21 AM EST ECG ANNOTATED 11/14/2024 LIPID PANEL WITH REFLEX TO DIRECT LDL Routine 09/03/2024 10:08 AM EST Mixed hyperlipidemia FALLS RISK ASSESSMENT Routine 02/28/2024 DEPRESSION SCREENING [...] Recently Relevant to Health Maintenance Results * CT Head wo Contrast (12/05/2024 10:26 AM EST) Only the most recent of6 resultswithin the time period is included. Anatomical Region Laterality Modality Head and Neck Computed Tomogra phy 12/05/2024 10:4 7 AM EST Impressions 12/05/2024 10:55 AM EST Enlarging subdural fluid collection along the right cerebral convexity compared with 11/21/2024. ??Increase in associated midline shift. A Expedited message has been communicated to the office of PATY NOGUEIRA via the [employer] on 12/05/2024 10:52 AM, Message ID [id number]. -------- FINAL REPORT -------- Dictated By: Vinayak Austin Dictated Date: 12/05/2024 10:47 ET Assigned Physician: Vinayak Austin Reviewed and Electronically Signed By: Vinayak Austin Signed Date: 12/05/2024 10:55 ET Workstation ID: [id number] Transcribed By: Self Edit Transcribed Date: 12/05/2024 [...] has been communicated to the office of PATY Amin the [employer] on 12/05/2024 10:52 AM,Message ID [id number]. -------- FINAL REPORT -------- Dictated By: Vinayak Austin Dictated Date: 12/05/2024 10:47 ET Assigned Physician: Vinayak Austin Reviewed and Electronically Signed By: Vinayak Austin Signed Date: 12/05/2024 10:55 ET Workstation ID: [id number] Transcribed By: Self Edit Transcribed Date: 12/05/2024 10:49 ET Paty DANIELS [facility] PROCEDURES Final Resul t * (ABNORMAL) Complete blood count (11/26/2024 5:49 AM EST) Only the most recent of9 resultswithin the time period is included. [facility] WBC 8.6 4.8 - 10.8 K/mcL LAB HEMETOLOGY METHOD 11/26/2024 6:52 AM [facility] RBC 2.50(L) 3.80 - 4.80 M/mcL LAB HEMETOLOGY METHOD 11/26/2024 6:52 AM [facility] Hemoglobin 7.8(L) 11.5 - 16.0 g/dL LAB HEMETOLOGY METHOD 11/26/2024 6:52 AM [facility] Hematocrit 25.0(L) 35.0 - 47.0 % LAB HEMETOLOGY METHOD 11/26/2024 6:52 AM [facility] MCV 98.8(H) 79.0 - 98.0 FL LAB HEMETOLOGY METHOD 11/26/2024 6:52 AM [facility] MCH 30.8 27.0 - 32.0 pcg LAB HEMETOLOGY METHOD 11/26/2024 6:52 AM [facility] MCHC 31.2(L) 32.0 - 37.0 g/dL LAB HEMETOLOGY METHOD 11/26/2024 6:52 AM [facility] RDW 16.2(H) 11.0 - 15.0 % LAB HEMETOLOGY METHOD 11/26/2024 6:52 AM [facility] Platelets 478(H) 130 - 400 K/mcL LAB HEMETOLOGY METHOD 11/26/2024 6:52 AM [facility] MPV 9.2 7.0 - 11.0 FL LAB HEMETOLOGY METHOD 11/26/2024 6:52 AM [facility] NRBC 0.0 <1.0 % LAB HEMETOLOGY METHOD 11/26/2024 6:52 AM [facility] NRBC Absolute 0.00 <0.10 K/mcL LAB HEMETOLOGY METHOD 11/26/2024 6:52 AM [facility] Blood Venous blood specimen / Unknown Venipuncture / Unknown 11/26/2024 5:49 AM EST 11/26/2024 6:33 AM EST us Jaz DANIELS LAB BLOOD ORDERABLES Final Resul t [facility] [address] [place] [address], [place] [phone] * Basic metabolic panel (11/26/2024 5:49 AM EST) Only the most recent of11 resultswithin the time period is included. Sodium 138 133 - 145 mmol/L LAB CHEMISTRY METHOD 11/26/2024 7:10 AM [facility] Potassium 4.5 3.5 - 5.5 mmol/L LAB CHEMISTRY METHOD 11/26/2024 7:10 AM [facility] Chloride 105 96 - 110 mmol/L LAB CHEMISTRY METHOD 11/26/2024 7:10 AM [facility] CO2 29 21 - 32 mmol/L LAB CHEMISTRY METHOD 11/26/2024 7:10 AM [facility] Anion Gap 4 3 - 11 LAB CHEMISTRY METHOD 11/26/2024 7:10 AM [facility] Glucose 86 70 - 100 mg/dL LAB CHEMISTRY METHOD 11/26/2024 7:10 AM [facility] BUN 15 5 - 25 mg/dL LAB CHEMISTRY METHOD 11/26/2024 7:10 AM [facility] Creatinine 0.72 0.50 - 1.10 mg/dL LAB CHEMISTRY METHOD 11/26/2024 7:10 AM [facility] eGFR 86 >=60 mL/min/1. 73m2 LAB CHEMISTRY METHOD 11/26/2024 7:10 AM [facility] Comment:Calculation based on the??Chronic Kidney Disease Epidemiology Collaboration (CKD-EPI) equation refit??without adjustment for race. BUN/Creatinine Ratio 20.8 LAB CHEMISTRY METHOD 11/26/2024 7:10 AM EST [facility] Calcium 8.7 8.5 - 10.5 mg/dL LAB CHEMISTRY METHOD 11/26/2024 7:10 AM EST [facility] Blood Venous blood specimen / Unknown Venipuncture / Unknown 11/26/2024 5:49 AM EST 11/26/2024 6:33 AM EST us Jaz DANIELS LAB BLOOD ORDERABLES Final Resul t [facility] [address] [place] [address], [place] [phone] * MR Brain wo Contrast (11/18/2024 7:01 [...] by: Estelle Jane MD on 11/18/2024 19:57:56 us Saundra Bucio MD IMG MRI PROCEDURES Edited Resu lt - Final * (ABNORMAL) TRANSTHORACIC ECHOCARDIOGRAM (TTE) COMPLETE (11/18/2024 [...] 76 mL CV PACS Left [facility] [place] 5.3 cm CV PACS Left [facility] [place] 5.5 cm CV PACS LA Area Sys [...] Proximal 1.5 cm CV PACS MV Deceleration Cole 5.0 m/s2 CV PACS E Wave Deceleration [...] CV ECHO PROCEDURES Final Resu lt * XR Pelvis 1-2 Views (11/17/2024 4:41 PM EST) Anatomical Region Laterality Modality Body, Pelvis Radiographic Jalyn ging 11/17/2024 4:53 PM EST Impressions 11/17/2024 4:54 PM EST Impression: Postop left femoral endoprosthesis placement, with prosthesis appearing satisfactorily positioned. Teleyehuda DANIELS ([id number]) -------- FINAL REPORT -------- Dictated By: Muna Roblero Dictated Date: 11/17/2024 16:53 ET Assigned Physician: Muna Roblero Reviewed and Electronically Signed By: Muna Roblero Signed Date: 11/17/2024 16:54 ET Workstation ID: [id number] Transcribed By: Self Edit Transcribed Date: 11/17/2024 [...] placement, with prosthesis appearingsatisfactorily positioned. Telerad FRANCES ([id number]) -------- FINAL REPORT -------- Dictated By: Muna Roblero Dictated Date: 11/17/2024 16:53 ET Assigned Physician: Muna Roblero Reviewed and Electronically Signed By: Muna Roblero Signed Date: 11/17/2024 16:54 ET Workstation ID: [id number] Transcribed By: Self Edit Transcribed Date: 11/17/2024 [...] Signed Date: 11/18/2024 06:58 ET Workstation ID: [id number] Transcribed By: Self Edit Transcribed Date: 11/18/2024 [...] Signed Date: 11/18/2024 06:58 ET Workstation ID: [id number] Transcribed By: Self Edit Transcribed Date: 11/18/2024 06:55 ET us Sami Coon MD IMG XR PROCEDURES Final R esult * Tissue exam (11/17/2024 1:17 PM EST) Final Diagnosis Bone, left femoral head: -CONSISTENT WITH FRACTURE 11/19/2024 10:45 AM [facility] Gross Description A. Bone, left [...] with some hemorrhage around the margin. A inside technical sales representative section is submitted in one cassette following decalcification, one piece CHECO 11/19/2024 10:45 AM [facility] Disclaimer Unless otherwise specified, all tissue is 10% NB formalin fixed and paraffin embedded. 11/19/2024 10:45 AM [facility] Bone Specimen from bone / Unknown 11/17/2024 1:17 PM EST 11/17/2024 3:55 PM EST Sami Coon MD LAB PATHOLOGY ORDERABLES Final Result [facility] [address] [place] [address], * TH AN ENDOTRACHEAL(NO CHARGE) (11/17/2024 12:46 PM EST) Narrative Dequan Kelsey DO - 11/17/2024 12:46 PM EST Dequan Kelsey DO ? 11/17/2024 12:47 PM General Information and Staff Patient location during procedure: OR Performed by: Dequan Kelsey DO Authorized by: Dequan Korobkov, DO ?? Intubation Airway not difficult Urgency: [...] Dequan Kelsey DO ANESTHESIA ORDERABLES Final Result * (ABNORMAL) CBC auto differential (11/17/2024 6:43 AM EST) Only the most recent of3 resultswithin the time period is included. WBC 7.4 4.8 - 10.8 K/mcL LAB HEMETOLOGY METHOD 11/17/2024 7:26 AM [facility] RBC 3.40(L) 3.80 - 4.80 M/mcL LAB HEMETOLOGY METHOD 11/17/2024 7:26 AM [facility] Hemoglobin 10.6(L) 11.5 - 16.0 g/dL LAB HEMETOLOGY METHOD 11/17/2024 7:26 AM [facility] Hematocrit 32.3(L) 35.0 - 47.0 % LAB HEMETOLOGY METHOD 11/17/2024 7:26 AM [facility] MCV 94.2 79.0 - 98.0 FL LAB HEMETOLOGY METHOD 11/17/2024 7:26 AM [facility] MCH 30.9 27.0 - 32.0 pcg LAB HEMETOLOGY METHOD 11/17/2024 7:26 AM [facility] MCHC 32.8 32.0 - 37.0 g/dL LAB HEMETOLOGY METHOD 11/17/2024 7:26 AM [facility] RDW 15.3(H) 11.0 - 15.0 % LAB HEMETOLOGY METHOD 11/17/2024 7:26 AM [facility] Platelets 150 130 - 400 K/mcL LAB HEMETOLOGY METHOD 11/17/2024 7:26 AM [facility] MPV 10.6 7.0 - 11.0 FL LAB HEMETOLOGY METHOD 11/17/2024 7:26 AM [facility] NRBC 0.0 <1.0 % LAB HEMETOLOGY METHOD 11/17/2024 7:26 AM [facility] NRBC Absolute 0.00 <0.10 K/mcL LAB HEMETOLOGY METHOD 11/17/2024 7:26 AM [facility] Neutrophils Relative 73.8 % LAB HEMETOLOGY METHOD 11/17/2024 7:26 AM [facility] Lymphocytes Relative 11.4 % LAB HEMETOLOGY METHOD 11/17/2024 7:26 AM [facility] Monocytes Relative 9.7 % LAB HEMETOLOGY METHOD 11/17/2024 7:26 AM [facility] Eosinophils Relative 4.3 % LAB HEMETOLOGY METHOD 11/17/2024 7:26 AM [facility] Basophils Relative 0.3 % LAB HEMETOLOGY METHOD 11/17/2024 7:26 AM [facility] Immature Granulocytes Relative 0.5 % LAB HEMETOLOGY METHOD 11/17/2024 7:26 AM [facility] Neutrophils Absolute 5.48 1.50 - 7.00 K/mcL LAB HEMETOLOGY METHOD 11/17/2024 7:26 AM [facility] Lymphocytes Absolute 0.85(L) 1.00 - 5.00 K/mcL LAB HEMETOLOGY METHOD 11/17/2024 7:26 AM EST [facility] Monocytes Absolute 0.72 0.20 - 1.00 K/mcL LAB HEMETOLOGY METHOD 11/17/2024 7:26 AM EST [facility] Eosinophils Absolute 0.32 0.00 - 0.50 K/mcL LAB HEMETOLOGY METHOD 11/17/2024 7:26 AM EST [facility] Basophils Absolute 0.02 0.00 - 0.20 K/[facility] LAB HEMETOLOGY METHOD 11/17/2024 7:26 AM EST [facility] Immature Granulocytes Absolute 0.04(H) 0.00 - 0.03 K/[facility] LAB HEMETOLOGY METHOD 11/17/2024 7:26 AM EST [facility] Blood Venous blood specimen / Unknown Venipuncture / Unknown 11/17/2024 6:43 AM EST 11/17/2024 7:07 AM EST us Bhavin Garcia MD LAB BLOOD ORDERABLES Final Re sult [facility] [address] [place] [address], * CT Angio Chest wo and/or w [...] Signed Date: 11/16/2024 10:45 ET Workstation ID: [id number] Transcribed By: Self Edit Transcribed Date: 11/16/2024 10:26 ET Narrative 11/16/2024 10:45 AM EST EXAMINATION: CTA chest with contrast. CLINICAL INDICATION: SOB. Hip fracture. Rule out PE. COMPARISON: Chest x-ray 11/16/2024. TECHNIQUE: 2.5 mm thin axial and reformatted 3 mm thin sagittal and coronal images of chest were obtained following IV 90 mL Isovue-370. Scanner: Sensorin LightSpeed 64 slice VCT Dose reduction technique: [...] were obtained following IV 90 mL Isovue-370.Scanner: GE LightSpeed 64 slice VCT Dose reduction [...] Signed Date: 11/16/2024 10:45 ET Workstation ID: [id number] Transcribed By: Self Edit Transcribed Date: 11/16/2024 10:26 ET Rochelle DANIELS IMG CT PROCEDURES Final Resul t * Respiratory virus panel molecular study (11/16/2024 5:44 AM EST) Adenovirus Detection by PCR Not Detected Not Detected LAB MICROBIOLOGY METHOD 11/16/2024 7:20 AM [facility] Influenza A PCR Not Detected Not Detected LAB MICROBIOLOGY METHOD 11/16/2024 7:20 AM [facility] Influenza B PCR Not Detected Not Detected LAB MICROBIOLOGY METHOD 11/16/2024 7:20 AM [facility] Coronavirus 229E Not Detected Not Detected LAB MICROBIOLOGY METHOD 11/16/2024 7:20 AM [facility] Coronavirus HKU1 Not Detected Not Detected LAB MICROBIOLOGY METHOD 11/16/2024 7:20 AM [facility] Coronavirus OC43 Not Detected Not Detected LAB MICROBIOLOGY METHOD 11/16/2024 7:20 AM [facility] Coronavirus NL63 Not Detected Not Detected LAB MICROBIOLOGY METHOD 11/16/2024 7:20 AM [facility] Parainfluenza Virus 1 Not Detected Not Detected LAB MICROBIOLOGY METHOD 11/16/2024 7:20 AM [facility] Parainfluenza Virus 2 Not Detected Not Detected LAB MICROBIOLOGY METHOD 11/16/2024 7:20 AM [facility] Parainfluenza Virus 3 Not Detected Not Detected LAB MICROBIOLOGY METHOD 11/16/2024 7:20 AM [facility] Parainfluenza Virus 4 Not Detected Not Detected LAB MICROBIOLOGY METHOD 11/16/2024 7:20 AM [facility] RSV PCR Not Detected Not Detected LAB MICROBIOLOGY METHOD 11/16/2024 7:20 AM [facility] Human Metapneumovirus A and B Not Detected Not Detected LAB MICROBIOLOGY METHOD 11/16/2024 7:20 AM [facility] Rhinovirus/Entero virus Not Detected Not Detected LAB MICROBIOLOGY METHOD 11/16/2024 7:20 AM [facility] Bordetella pertussis Not Detected Not Detected LAB MICROBIOLOGY METHOD 11/16/2024 7:20 AM [facility] Bordetella parapertussis Not Detected Not Detected LAB MICROBIOLOGY METHOD 11/16/2024 7:20 AM [facility] Mycoplasma pneumo by PCR Not Detected Not Detected LAB MICROBIOLOGY METHOD 11/16/2024 7:20 AM [facility] Chlamydia pneumoniae Not Detected Not Detected LAB MICROBIOLOGY METHOD 11/16/2024 7:20 AM [facility] SARS COV-2 Not Detected Not Detected LAB MICROBIOLOGY METHOD 11/16/2024 7:20 AM [facility] Swab Structure of right anterior naris / Unknown Non-blood Collection / Unknown 11/16/2024 5:44 AM EST 11/16/2024 6:27 AM [facility] - 11/16/2024 7:20 AM EST Testing was performed using the [employer] Respiratory Pathogen PCR Assay. All results must [...] OR DERABLES Final Result Performing Organization Address [facility]/ZIP Co de Phone Number [facility] [address] [place] [address], [place] [phone] * (ABNORMAL) Arterial blood gas (11/16/2024 5:42 AM EST) pH, Arterial 7.47(H) 7.35 - 7.45 pH 11/16/2024 6:05 AM EST [facility] pCO2, Arterial 32(L) 35 - 45 mmHg 11/16/2024 6:05 AM [facility] pO2, Arterial 56(LL) 80 - 100 mmHg 11/16/2024 6:05 AM [facility] HCO3, Arterial 24.8 22.0 - 26.0 mmol/L 11/16/2024 6:05 AM [facility] O2 Sat, Arterial 89.9(L) 95.0 - 98.0 % 11/16/2024 6:05 AM [facility] Base Excess, Arterial 0.1 -2.0 - 2.0 mmol/L 11/16/2024 6:05 AM [facility] Al Test Pass Pass, Unresponsi ve, Line 11/16/2024 6:05 AM [facility] FIO2 21.00 11/16/2024 6:05 AM [facility] Blood Arterial blood specimen / Unknown Arterial Puncture / Unknown 11/16/2024 5:42 AM EST 11/16/2024 5:47 AM EST us Rochelle DANIELS LAB BLOOD ORDERABLES Final Re sult [facility] [address] [place] [address], [place] [phone] * XR Chest 1 View (11/16/2024 4:48 [...] Signed Date: 11/16/2024 07:11 ET Workstation ID: [id number] Transcribed By: Self Edit Transcribed Date: 11/16/2024 [...] Signed Date: 11/16/2024 07:11 ET Workstation ID: [id number] Transcribed By: Self Edit Transcribed Date: 11/16/2024 07:09 ET Rochelle DANIELS IMG XR PROCEDURES Final Resul t * Magnesium (11/15/2024 6:27 AM EST) Pathologist [facility] Magnesium 2.0 1.9 - 2.6 mg/dL LAB CHEMISTRY METHOD 11/15/2024 8:39 AM EST [facility] Blood Venous blood specimen / Unknown Venipuncture / Unknown 11/15/2024 6:27 AM EST 11/15/2024 7:04 AM EST Demarcus Villalobos MD LAB BLOOD ORDERABLES Final Re sult Performing Organization Address [facility]/ZIP Co de Phone Number [facility] [address] [place] [address], * Vitamin B12 (11/15/2024 6:27 AM EST) [facility] Vitamin B-12 265 250 - 900 pcg/mL LAB CHEMISTRY METHOD 11/15/2024 6:00 PM EST [facility] Blood Venous blood specimen / Unknown Venipuncture / Unknown 11/15/2024 6:27 AM EST 11/15/2024 7:04 AM EST Bhavin Garcia MD LAB BLOOD ORDERABLES Final Re sult [facility] [address] [place] [address], [place] [phone] * Activated partial thromboplastin time (11/14/2024 8:37 PM EST) aPTT 32.2 24.1 - 39.3 sec LAB COAGULATION METHOD 11/14/2024 9:02 PM EST [facility] Blood Venous blood specimen / Unknown Venipuncture / Unknown 11/14/2024 8:37 PM EST 11/14/2024 8:49 PM EST us Paty DANIELS LAB BLOOD ORDERABLES Final Re sult Performing Organization Address City/[facility]/ZIP Co de Phone Number [facility] [address] [place] [address], [place] [phone] * Prothrombin time with INR (11/14/2024 8:37 PM EST) [facility] Protime 12.0 10.6 - 13.9 sec LAB COAGULATION METHOD 11/14/2024 9:02 PM [facility] INR 1.0 LAB COAGULATION METHOD 11/14/2024 9:02 PM [facility] Blood Venous blood specimen / Unknown Venipuncture / Unknown 11/14/2024 8:37 PM EST 11/14/2024 8:49 PM EST us Paty DANIELS LAB BLOOD ORDERABLES Final Re sult Performing Organization Address [facility]/ZIP Co de Phone Number [facility] [address] [place] [address], [place] [phone] * (ABNORMAL) Urinalysis with reflex microscopic and culture (11/14/2024 1:58 PM EST) [facility] Specific Jackson Urine 1.021 1.003 - 1.030 LAB URINALYSIS - AUTOMATED METHOD 11/14/2024 2:32 PM [facility] pH, Urine 6.0 5.0 - 8.0 pH LAB URINALYSIS - AUTOMATED METHOD 11/14/2024 2:32 PM [facility] Leukocytes, Urine Small(A) Negative LAB URINALYSIS - AUTOMATED METHOD 11/14/2024 2:32 PM [facility] Nitrite, Urine Negative Negative LAB URINALYSIS - AUTOMATED METHOD 11/14/2024 2:32 PM [facility] Protein, Urine 30(A) <=Trace mg/dL LAB URINALYSIS - AUTOMATED METHOD 11/14/2024 2:32 PM [facility] Glucose, Urine Negative Negative mg/dL LAB URINALYSIS - AUTOMATED METHOD 11/14/2024 2:32 PM [facility] Ketones, Urine Trace(A) Negative mg/dL LAB URINALYSIS - AUTOMATED METHOD 11/14/2024 2:32 PM [facility] Urobilinogen , Urine 1.0 0.2 - 1.0 mg/dL LAB URINALYSIS - AUTOMATED METHOD 11/14/2024 2:32 PM [facility] Bilirubin, Urine Negative Negative LAB URINALYSIS - AUTOMATED METHOD 11/14/2024 2:32 PM [facility] Blood, Urine Moderate(A) Negative LAB URINALYSIS - AUTOMATED METHOD 11/14/2024 2:32 PM [facility] RBC, Urine 9.2(H) 0 - 4 /HPF LAB URINALYSIS - AUTOMATED METHOD 11/14/2024 2:32 PM [facility] WBC, Urine 28.1(H) 0 - 4 /HPF LAB URINALYSIS - AUTOMATED METHOD 11/14/2024 2:32 PM [facility] Squamous Epithelial, Urine 37 0 - 60 /LPF LAB URINALYSIS - AUTOMATED METHOD 11/14/2024 2:32 PM [facility] Bacteria, Urine Many(A) Negative /HPF LAB URINALYSIS - AUTOMATED METHOD 11/14/2024 2:32 PM [facility] Hyaline Casts, Urine 0.8 0 - 3 /LPF LAB URINALYSIS - AUTOMATED METHOD 11/14/2024 2:32 PM [facility] Urine Urinary bladder structure / Unknown Non-blood Collection / Unknown 11/14/2024 1:58 PM EST 11/14/2024 2:20 PM EST us Aleida DANIELS LAB URINE ORDERABLES Final Re sult [facility] [address] [place] [address], [place] [phone] * Estrada urine culture tube (11/14/2024 1:58 PM EST) Extra Tube Hold for add-ons. 11/14/2024 4:02 PM EST [facility] Comment:Auto resulted. Urine Urinary bladder structure / Unknown Non-blood Collection / Unknown 11/14/2024 1:58 PM EST 11/14/2024 2:20 PM EST Aleida DANIELS LAB URINE ORDERABLES Final Re sult Performing Organization Address [facility]/ZIP Co de Phone Number [facility] [address] [place] [address], [place] [phone] * (ABNORMAL) Culture urine (11/14/2024 1:58 PM EST) Culture, Urine >100,000 CFU/mL Escherichia coli ESBL(A) CLINT 11/17/2024 11:51 AM EST [facility] Comment:THIS ORGANISM IS POS [...] Trimethoprim/Sulfa methoxazol e CLINT <=20 ug/ml: Susceptible us Aleida DANIELS LAB MICROBIOLOGY - GENERAL OR DERABLES Final Result [facility] [address] [place] [address], * CT Lower Extremity wo Contrast Left [...] Signed Date: 11/14/2024 12:30 ET Workstation ID: [id number] Transcribed By: Self Edit Transcribed Date: 11/14/2024 [...] Signed Date: 11/14/2024 12:30 ET Workstation ID: [id number] Transcribed By: Self Edit Transcribed Date: 11/14/2024 12:26 ET Aleida DANIELS IMG CT PROCEDURES Final Resul t * Troponin I high sensitivity (11/14/2024 11:25 AM EST) Only the most recent of2 resultswithin the time period is included. High Sensitivity Troponin I 10 <=54 ng/L LAB CHEMISTRY METHOD 11/14/2024 12:49 PM EST [facility] Blood Venous blood specimen / Unknown Venipuncture / Unknown 11/14/2024 11:25 AM EST 11/14/2024 11:56 AM EST Narrative [facility] - 11/14/2024 12:49 PM EST High levels of biotin in samples may falsely decrease hsTroponin values. ??Use caution when interpreting hsTroponin results in patients taking biotin who exhibit renal impairment (eGFR <60) or in patients taking more than 20 mg/day of biotin. Aleida DANIELS LAB BLOOD ORDERABLES Final Re sult [facility] ([facility]) [facility] [address] [place] [address], * XR Hip 2-3 Views Left (11/14/2024 [...] Signed Date: 11/14/2024 11:08 ET Workstation ID: [id number] Transcribed By: Self Edit Transcribed Date: 11/14/2024 [...] Signed Date: 11/14/2024 11:08 ET Workstation ID: [id number] Transcribed By: Self Edit Transcribed Date: 11/14/2024 11:05 ET us Aleida DANIELS IMG XR PROCEDURES Final Resul t * (ABNORMAL) Thyroid stimulating hormone (11/14/2024 9:58 AM EST) [facility] TSH 48.69(H) 0.40 - 4.00 mcIU/mL LAB CHEMISTRY METHOD 11/15/2024 6:35 AM EST [facility] Blood Venous blood specimen / Unknown Venipuncture / Unknown 11/14/2024 9:58 AM EST 11/14/2024 10:25 AM EST Demarcus Villalobos MD LAB BLOOD ORDERABLES Final Re sult Performing Organization Address [facility]/ZIP Co de Phone Number [facility] [address] [place] [address], [place] [phone] * (ABNORMAL) Creatine kinase (11/14/2024 9:58 AM EST) [facility] Total CK 668(H) 22 - 269 unit/L LAB CHEMISTRY METHOD 11/14/2024 11:20 AM EST [facility] Blood Venous blood specimen / Unknown Venipuncture / Unknown 11/14/2024 9:58 AM EST 11/14/2024 10:25 AM EST us Aleida DANIELS LAB BLOOD ORDERABLES Final Re sult Performing Organization Address City/[facility]/ZIP Co de Phone Number [facility] [address] [place] [address], * (ABNORMAL) Comprehensive metabolic panel (11/14/2024 9:58 AM EST) Sodium 137 133 - 145 mmol/L LAB CHEMISTRY METHOD 11/14/2024 11:56 AM [facility] Potassium 3.6 3.5 - 5.5 mmol/L LAB CHEMISTRY METHOD 11/14/2024 11:56 AM [facility] Chloride 107 96 - 110 mmol/L LAB CHEMISTRY METHOD 11/14/2024 11:56 AM [facility] CO2 25 21 - 32 mmol/L LAB CHEMISTRY METHOD 11/14/2024 11:56 AM [facility] Anion Gap 5 3 - 11 LAB CHEMISTRY METHOD 11/14/2024 11:56 AM [facility] Glucose 130(H) 70 - 100 mg/dL LAB CHEMISTRY METHOD 11/14/2024 11:56 AM [facility] BUN 24 5 - 25 mg/dL LAB CHEMISTRY METHOD 11/14/2024 11:56 AM [facility] Creatinine 0.96 0.50 - 1.10 mg/dL LAB CHEMISTRY METHOD 11/14/2024 11:56 AM [facility] eGFR 61 >=60 mL/min/1. 73m2 LAB CHEMISTRY METHOD 11/14/2024 11:56 AM [facility] Comment:Calculation based on the??Chronic Kidney Disease Epidemiology Collaboration (CKD-EPI) equation refit??without adjustment for race. BUN/Creatinine Ratio 25.0 LAB CHEMISTRY METHOD 11/14/2024 11:56 AM [facility] Calcium 8.9 8.5 - 10.5 mg/dL LAB CHEMISTRY METHOD 11/14/2024 11:56 AM [facility] AST (SGOT) 52(H) 10 - 42 unit/L LAB CHEMISTRY METHOD 11/14/2024 11:56 AM [facility] Comment:Results verified by repeat testing ALT (SGPT) 40 10 - 60 unit/L LAB CHEMISTRY METHOD 11/14/2024 11:56 AM EST [facility] Comment:Results verified by repeat testing Alkaline Phosphatase 81 42 - 121 unit/L LAB CHEMISTRY METHOD 11/14/2024 11:56 AM EST [facility] Total Protein 6.8 6.0 - 8.0 g/dL LAB CHEMISTRY METHOD 11/14/2024 11:56 AM EST [facility] Albumin 3.9 3.2 - 5.0 g/dL LAB CHEMISTRY METHOD 11/14/2024 11:56 AM EST [facility] Total Bilirubin 1.0 0.0 - 1.4 mg/dL LAB CHEMISTRY METHOD 11/14/2024 11:56 AM [facility] Blood Venous blood specimen / Unknown Venipuncture / Unknown 11/14/2024 9:58 AM EST 11/14/2024 10:25 AM EST Aleida DANIELS LAB BLOOD ORDERABLES Final Re sult [facility] [address] [place] [address], * ECG 12 lead (11/14/2024 9:41 AM EST) Ventricular Rate ECG 80 BPM GEMUSE Atrial Rate 80 BPM GEMUSE P-R Interval 126 ms GEMUSE QRS Duration 80 ms GEMUSE Q-T Interval 430 ms GEMUSE QTc 495 ms GEMUSE R [place] 31 degrees GEMUSE T [place] -53 degrees GEMUSE ECG Interpretation Normal sinus rhythm Nonspecific T wave abnormality Abnormal ECG No previous ECGs available Confirmed by HELADIO SIMMONS ([id number]) on 11/14/2024 5:33:44 PM GEMUSE 11/14/2024 9:41 AM EST 11/14/2024 5:33 PM EST Román Guzman MD ECG ORDERABLES Final Resul t GEMUSE * SD CRITICAL CARE EACH ADDITIONAL [...] provider ?? Román Guzman MD IN CLINIC/BEDSIDE ORDERABLE S Final Result * ECG-Annotated (11/14/2024) Provider Onbase ECG ORDERABLES Final Result * (ABNORMAL) Lipid panel with reflex to direct LDL (09/03/2024 10:08 AM EST) [facility] Cholesterol 257(H) 0 - 200 mg/dL LAB CHEMISTRY METHOD 09/03/2024 4:57 PM EST [facility] Triglycerides 94 0 - 150 mg/dL LAB CHEMISTRY METHOD 09/03/2024 4:57 PM EST [facility] HDL 90 >=40 mg/dL LAB CHEMISTRY METHOD 09/03/2024 4:57 PM EST [facility] LDL Calculated 148(H) 0 - 100 mg/dL LAB CHEMISTRY METHOD 09/03/2024 4:57 PM EST [facility] VLDL Cholesterol [place] 18.8 mg/dL LAB CHEMISTRY METHOD 09/03/2024 4:57 PM EST [facility] Non HDL Chol. (LDL+VLDL) 167(H) <145 mg/dL LAB CHEMISTRY METHOD 09/03/2024 4:57 PM EST [facility] Chol/HDL Ratio 2.9 0.0 - 4.4 LAB CHEMISTRY METHOD 09/03/2024 4:57 PM [facility] Blood Venous blood specimen / Unknown Venipuncture / Unknown 09/03/2024 10:08 AM EST 09/03/2024 10:08 AM EST Garcia Doran MD LAB BLOOD ORDERABLES Final Resu lt [facility] [address] [place] [address], * Falls Risk Assessment (02/28/2024) Falls Risk Assessment ABSTRACTED Historical Provider HEALTH MAINTENANCE Final Result * Depression Screening (10/25/2023) Depression Screening ABSTRACTED Historical Provider HEALTH MAINTENANCE Final Result * DXA BONE DENSITY STUDY 1+ SITS AXIAL SKEL (10/04/2023 4:00 PM EST) Anatomical Region Laterality Modality Bone Densitometr y 12/28/2022 9:43 AM EST Narrative 10/04/2023 9:07 PM EST STUDY: ??DUAL ENERGY X-RAY ABSORPTIOMETRY / DXA REASON FOR EXAM: ?? Female, 78 years old ??menopausal/postmenopausal disorder TECHNIQUE: ?? Bone Mineral Density (BMD) measurements of the lumbar spine and left hip were obtained using [employer] W (S/N [id number]). ?? COMPARISON: None ?? FINDINGS: L1-L3-L4 BMD: [...] lumbar spineand left hip were obtained using [employer] W (S/N [id number]). COMPARISON: None FINDINGS: L1-L3-L4 BMD: 0.775 g/cm2 [...] Osteoporosis Garcia Doran MD IMG DXA PROCEDURES Final Result * SCREENING MAMMOGRAPHY BI 2-VIEW BREAST INC [...] % Breast cancer risk category Low (<15%) Result [facility] Garcia Doran MD IMG XR PROCEDURES Final Result * FIT-DNA (Cologuard) (11/07/2022) Pathologist [facility] Colorectal Cancer Screening: FIT-DNA (Cologuard) no interpretation , abstracted Historical Provider HEALTH MAINTENANCE Final Result * Hepatitis C Screening (04/22/2018) Pathologist [facility] Hepatitis C Screening ABSTRACTED Result [facility] Historical Provider HEALTH MAINTENANCE Final Result from Last 3 Months or Most Recently Relevant to Health Maintenance Additional Health 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
--- OUTSIDE RECORDS SUMMARY | 2024-12-08 06:18 | XMS_ITS | Encounter Summary ---
Author Organization [facility] Address [address] [place] [address] Care Team Providers Care Teamcenter Consultant Name Role Phone Garcia Doran MD Primary Care Provider [phone] Reason for Visit * Reason Comments Fall Altered Mental Status * Auth/Cert Specialty Diagnoses / Procedures Referred By Contac t Referred To Contact Diagnoses Acute subdural hematoma (CMS/HCC) Procedures . Demarcus Villalobos MD [address] [place] [phone] Phone: tel: fax: [facility] Emergency [address] [place] [address] Phone: tel: Referral ID Status Reason Start Date Expiration Date Visits Re quested Visits Authorized [id number] 1 1 Encounter Details Date Type Department Care Team (Late st Contact Info) Description 11/17/2024 1:00 PM EST - 11/17/2024 3:30 PM EST Surgery [facility] Main OR [address] [place] [address] Elva Hester MD [address] [place] [id number] HEMIARTHROPLASTY LEFT HIP, CEMENTED, POSTERIOR APPROACH [29807 (CPT??)] Surgery Details Date/Time Status Location OR Service Patient Class Case Class Case Type Trauma Case? 11/17/2024 1:00 PM Posted [facility] OR OR 03 Orthopedics Inpatient Panel 1 Procedure LRB Anes [...] for your loved ones. For example, child development director or elderly care for an older [...] of Assessment Author No 11/14/2024 4:03 PM EST Tiffanie Arce RN * Are you blind or do you have serious difficulty seeing, even when wearing glasses? Answer Date of Assessment Author No 11/14/2024 4:03 PM EST Tiffanie Arce RN * Do you have serious difficulty walking or climbing stairs? Answer Date of Assessment Author No 11/14/2024 4:03 PM EST Tiffanie Arce RN * Do you have serious difficulty [...] Discharge Diagnosis: Left hip fracture Discharge Disposition Longterm Facility Code Status at Discharge: Prior Hospital Course Summary Presenting Problem/History of Present Illness Subdural hematoma (CMS/HCC) [S06.5XAA] Acute subdural hematoma (CMS/HCC) [S06.5XAA] Closed fracture of left hip, initial encounter ([facility]) [S72.002A] Chief Complaint Patient presents with Fall Altered Mental Status HPI 79-year-old former smoker woman with past medical history significant for hypertension, dyslipidemia, hypothyroidism, osteopenia, depression and anxiety was brought to [facility] ED after her found her around [...] coronal images of brain were obtained. Scanner: Couplewise 64 slice VCT Dose reduction technique: ASIR [...] AndanalSigned Date: 11/15/2024 08:30 ET Workstation ID: [id number] Transcribed By: Self Edit Transcribed Date: 11/15/2024 [...] size. No hydrocephalus. Extracranial structures are unchanged. Unchanged right cerebral convexity subdural hematoma without significant midline shift. -------- FINAL REPORT -------- Dictated By: KYLER BARRERA Dictated Date: 11/14/2024 14:41 ET Assigned Physician: KYLER BARRERA Reviewed and Electronically Signed By: KYLER BARRERA Signed Date: 11/14/2024 14:51 ET Workstation ID: [id number] Transcribed By: Self Edit Transcribed Date: 11/14/2024 [...] Signed Date: 11/14/2024 12:30 ET Workstation ID: [id number] Transcribed By: Self Edit Transcribed Date: 11/14/2024 [...] Signed Date: 11/14/2024 11:08 ET Workstation ID: [id number] Transcribed By: Self Edit Transcribed Date: 11/14/2024 [...] Signed Date: 11/14/2024 11:08 ET Workstation ID: [id number] Transcribed By: Self Edit Transcribed Date: 11/14/2024 [...] Signed Date: 11/14/2024 10:36 ET Workstation ID: [id number] Transcribed By: Self Edit Transcribed Date: 11/14/2024 [...] mg per tablet Follow-Up Instructions and Recommendations [address] [address] No discharge procedures on file. [...] by Dr. Hester - Follow up with [facility] in 2 weeks. If [...] your follow up appointment. - Please call [facility] with any questions or concerns. [facility] [address] [place] [phone] documented in this encounter Medications at [...] hours for 10 days. 11/24/2024 5 documented as of this encounter Ordered Prescriptions [...] Disposition Code Departure Means Destination Comment s Longterm Facility Ambulance documented in this encounter Progress [...] onward) Start Ordered 11/17/24 1503 Adult diet [facility]; Modified Consistency Options for Liquidsand Solids, General; Regular; IDDSI Level 7 Easy to Chew (Order Panel) Diet effective now Question Answer Comment Location [facility] Diet Type (req) Modified Consistency [...] seen for follow up- noted after visit, lead case manager note stating that pt discharging to shelter facility at 6 pm today. Pt reports good intake/appetite. States she is having at least half of meals. irrigator overhead indicates pt consume 100% of meals on [...] 1627 Initial Transition Plan Initial Transition Plan Longterm Facility Transportation Transportation at discharge [facility] providing transportation [facility] What day is the transport expected? 11/26/24 What time is the transport expected? 1800 Final Discharge Disposition Longterm Facility (Formerly [facility]) [facility] spoke to Fredy and daughter Yovana and updated them on transfer * Bridgette Martinezjettroxy - 11/26/2024 1:10 PM EST [facility] Physical Therapy Treatment PT Discharge Recommendations: Inpatient rehab facility placement, custodial facility placement Equipment Recommended: walker Staff Recommendations [...] is a 79 y.o. female admitted to [facility] on 11/14/2024 with: Patient Active Problem List Diagnosis Anxiety Depression HTN (hypertension) Hyperlipidemia Hypothyroidism Osteopenia Osteoporosis Closed fracture of left hip (CMS/HCC) Acute subdural hematoma ([facility]/HCC) Fall prevention education provided including use of [...] day PT Discharge Recommendations Inpatient rehab facility placement;custodial facility placement Equipment Recommended walker Barriers to [...] PT Discharge Recommendations: Inpatient rehab facility placement, custodial facility placement Equipment Recommended: walker Barriers to [...] Zelaya Cosigned by Evangelina Flowers PT at 11/26/2024 2:29 PM EST * Trace Burris MD - 11/26/2024 12:54 PM EST Images from the original note were not included. EFRAIN PROGRESS NOTE Date: 11/26/2024 Author: Trace Burris MD Patient ID: Isabela Riso is a 79 y.o. female : 1945 MR#: [id number] ASSESSMENT & PLAN Assessment/Plan Principal Problem: Acute [...] Signed Date: 11/21/2024 08:46 ET Workstation ID: [id number] Transcribed By: Self Edit Transcribed Date: 11/21/2024 [...] PM EST Therapy session was attempted for Isabeal Rios by Evangelina Flowers PT on 11/25/2024. The patient was unable to be seen for the following reason(s): Other: pt was just readjusted in bed Plan for return visit: Tomorrow * Trace Burris MD - 11/25/2024 11:48 AM EST Images from the original note were not included. CLARIDGE PROGRESS NOTE Date: 11/25/2024 Author: Trace Burris MD Patient ID: Isabela Rios is a 79 y.o. female : 1945 MR#: [id number] ASSESSMENT & PLAN Assessment/Plan Principal Problem: Acute [...] Signed Date: 11/21/2024 08:46 ET Workstation ID: [id number] Transcribed By: Self Edit Transcribed Date: 11/21/2024 [...] Ruelas RN - 11/24/2024 4:02 PM EST [facility] received a message from [facility] is offering peer to peer prior to determination. Deadline is 10:30 am 11/25/24. Please have provider call [phone] option 5. thanks Message forwarded to [facility] product communications manager, and Landing Worker. Daughter Yovana updated * Yolanda Carson RN [...] Bridgette Zelaya - 11/24/2024 11:31 AM EST [facility] Physical Therapy Treatment PT Discharge Recommendations: Inpatient rehab facility placement, custodial facility placement Equipment Recommended: walker Staff Recommendations [...] is a 79 y.o. female admitted to [facility] on 11/14/2024 with: Patient Active Problem List Diagnosis Anxiety Depression HTN (hypertension) Hyperlipidemia Hypothyroidism Osteopenia Osteoporosis Hip fracture requiring operative repair, left, closed, initial encounter (CMS/[facility]) Acute subdural hematoma (CMS/HCC) Fall prevention education [...] day PT Discharge Recommendations Inpatient rehab facility placement;custodial facility placement Equipment Recommended walker Barriers to [...] treatment well Comments: pt was I at [facility]; feel she is a good candidate for acute rehab Medical Staff Made Aware: Yes Plan Treatment/Interventions: LE strengthening/ROM, Gait training, Endurance training PT Plan: Skilled PT PT Frequency: 2-5 days per week PT Duration of Sessions: 15-30 min per session PT Treatments per day: 1 time per day PT Discharge Recommendations: Inpatient rehab facility placement, custodial facility placement Equipment Recommended: walker Barriers to [...] from the original note were not included. EFRAIN PROGRESS NOTE Date: 11/23/2024 Author: Saundra Bucio MD Patient ID: Isabela Rios is a 79 y.o. female : 1945 MR#: [id number] SUBJECTIVE CC: Here after fall resulting in [...] Signed Date: 11/21/2024 08:46 ET Workstation ID: [id number] Transcribed By: Self Edit Transcribed Date: 11/21/2024 [...] Rachel Bernard and Tucker. Rachel Bernard at [phone] - I met her at the bedside [...] from the original note were not included. EFRAIN PROGRESS NOTE Date: 11/22/2024 Author: Saundra Bucio MD Patient ID: Isabela Rios is a 79 y.o. female : 1945 MR#: [id number] SUBJECTIVE CC: Here after fall resulting in [...] Signed Date: 11/21/2024 08:46 ET Workstation ID: [id number] Transcribed By: Self Edit Transcribed Date: 11/21/2024 [...] and Tucker. I called Rachel Bernard at [phone] and left the message. * Kayla Roque [...] Flowers PT - 11/22/2024 10:13 AM EST [facility] Physical Therapy Treatment PT Discharge Recommendations: custodial facility placement, Inpatient rehab facility placement Equipment [...] is a 79 y.o. female admitted to [facility] on 11/14/2024 with: Patient Active Problem List Diagnosis Anxiety Depression HTN (hypertension) Hyperlipidemia Hypothyroidism Osteopenia Osteoporosis Hip fracture requiring operative repair, left, closed, initial encounter ([facility]) Acute subdural hematoma ([facility]) Fall prevention education provided including use of [...] 1 time per day PT Discharge Recommendations custodial facility placement;Inpatient rehab facility placement PT - [...] treatment well Comments: pt was I at [facility]; feel she is a good candidate for acute rehab Medical Staff Made Aware: Yes Plan Treatment/Interventions: LE strengthening/ROM, Endurance training, Gait training PT Plan: Skilled PT PT Frequency: 2-5 days per week PT Duration of Sessions: 15-30 min per session PT Treatments per day: 1 time per day PT Discharge Recommendations: custodial facility placement, Inpatient rehab facility placement Equipment [...] Martins OT - 11/22/2024 9:00 AM EST [facility] Occupational Therapy Treatment Note DATE: Friday November 22, 2024 TIME IN: 899 TIME OUT: 944 Pt: Isabela Rios 529/529-2 DISCHARGE RECS: custodial facility placement, Inpatient rehab facility placement EQUIPMENT RECS: Walker-rolling (social worker masters, sock aid) SAFE PT HANDLING REC FOR [...] - Evaluation Status Complete OT Discharge Recommendations custodial facility placement;Inpatient rehab facility placement Equipment Recommended Walker-rolling (social worker masters, sock aid) ADDITIONAL COMMENTS: Chart reviewed. RN [...] End: 11/25/24 Goal Note filed on 11/20/24 5408 by Magnolia Lincoln OT Pt will complete [...] onward) Start Ordered 11/17/24 1503 Adult diet [facility]; Modified Consistency Options for Liquidsand Solids, General; Regular; IDDSI Level 7 Easy to Chew (Order Panel) Diet effective now Question Answer Comment Location [facility] Diet Type (req) Modified Consistency [...] (increased her walking, cut back ). Appetite TELEPHONE ADVICE NURSE: Good Intake TELEPHONE ADVICE NURSE: Stable Vitamins/Minerals/Herbs: one a day type multivitamin [...] from the original note were not included. EFRAIN PROGRESS NOTE Date: 11/21/2024 Author: Saundra Bucio MD Patient ID: Isabela Rios is a 79 y.o. female : 1945 MR#: [id number] SUBJECTIVE CC: Here after fall resulting in [...] Signed Date: 11/21/2024 08:46 ET Workstation ID: [id number] Transcribed By: Self Edit Transcribed Date: 11/21/2024 [...] Bridgette Zelaya - 11/21/2024 10:54 AM EST [facility] Physical Therapy Treatment PT Discharge Recommendations: Inpatient rehab facility placement, custodial facility placement Equipment Recommended: walker Staff Recommendations [...] is a 79 y.o. female admitted to [facility] on 11/14/2024 with: Patient Active Problem List Diagnosis Anxiety Depression HTN (hypertension) Hyperlipidemia Hypothyroidism Osteopenia Osteoporosis Hip fracture requiring operative repair, left, closed, initial encounter ([facility]) Acute subdural hematoma ([facility]) Fall prevention education provided including use of [...] day PT Discharge Recommendations Inpatient rehab facility placement;custodial facility placement Equipment Recommended walker Barriers to [...] treatment well Comments: pt was I at [facility]; feel she is a good candidate for acute rehab Medical Staff Made Aware: Yes Plan Treatment/Interventions: LE strengthening/ROM, Endurance training, Gait training PT Plan: Skilled PT PT Frequency: 7 days per week PT Duration of Sessions: 15-30 min per session PT Treatments per day: 1 time per day PT Discharge Recommendations: Inpatient rehab facility placement, custodial facility placement Equipment Recommended: walker Barriers to [...] over left periorbital region Oriented to person, [facility], Oct 2024. Respirations unlabored and heart [...] Martins OT - 11/21/2024 9:30 AM EST [facility] Occupational Therapy Treatment Note DATE: Thursday November 21, 2024 TIME IN: 0930 TIME OUT: 1010 Pt: Isabela Rios 529/529-2 DISCHARGE RECS: custodial facility placement, Inpatient rehab facility placement EQUIPMENT RECS: Walker-rolling (social worker masters) SAFE PT HANDLING REC FOR STAFF: 1 [...] - Evaluation Status Complete OT Discharge Recommendations custodial facility placement;Inpatient rehab facility placement Equipment Recommended Walker-rolling (social worker masters) ADDITIONAL COMMENTS: Chart reviewed. RN clears pt [...] Orthopedic team. No acute findings. Tissue exam: [id number] Order: [id number] Collected 11/17/2024 13:17 Status: Final result Visible [...] some hemorrhage around the margin. A sales representative advertising section is submitted in one cassette following decalcification, one piece [facility]CO Disclaimer Unless otherwise specified, all tissue is 10% NB formalin fixed and paraffin embedded. Resulting Agency [facility] Collection Information Specimen ID: 1 Bone Bone Collected: 11/17/2024 1317 EST ELVA HESTER Received: 11/17/2024 1555 EST Resulting Agency: [facility] ([facility] H[facility]PITAL LAB [address] [address] * Magnolia Lincoln, OT - 11/20/2024 3:42 [...] chair with back Prior Function Level of [place] Independent with mobility and functional transfers Indoor [...] Entry OT Evaluation (Low) Time Entry 35 [facility] Occupational Therapy Evaluation DATE: October TIME IN: 1245 TIME OUT: 1320 Pt: Isabela Rios ROOM: - Discharge Recommendation: inpatient rehab Equipment Recommendation: other [...] is a 79 y.o. female admitted to [facility] on 11/14/2024. Occupational Therapy evaluation and treatment ordered to assess ADL independence, safety, and functional mobility for discharge planning. Patient Active Problem List Diagnosis Anxiety Depression HTN (hypertension) Hyperlipidemia Hypothyroidism Osteopenia Osteoporosis Hip fracture requiring operative repair, left, closed, initial encounter ([facility]) Acute subdural hematoma ([facility]) Past Medical History: Diagnosis Date Anxiety 06/11/2017 [...] chair with back Prior Function Level of [place] Independent with mobility and functional transfers Indoor [...] from the original note were not included. EFRAIN PROGRESS NOTE Date: 11/20/2024 Author: Saundra Bucio MD Patient ID: Isabela Rios is a 79 y.o. female : 1945 MR#: [id number] SUBJECTIVE CC: Here after fall resulting in [...] Signed Date: 11/18/2024 14:33 ET Workstation ID: [id number] Transcribed By: Self Edit Transcribed Date: 11/18/2024 [...] Signed Date: 11/18/2024 06:58 ET Workstation ID: [id number] Transcribed By: Self Edit Transcribed Date: 11/18/2024 [...] Bridgette Zelaya - 11/20/2024 1:27 PM EST [facility] Physical Therapy Treatment PT Discharge Recommendations: [...] is a 79 y.o. female admitted to [facility] on 11/14/2024 with: Patient Active Problem List Diagnosis Anxiety Depression HTN (hypertension) Hyperlipidemia Hypothyroidism Osteopenia Osteoporosis Hip fracture requiring operative repair, left, closed, initial encounter (CMS/HCC) Acute subdural hematoma (CMS/HCC) Fall prevention [...] treatment well Comments: pt was I at [facility]; feel she is a good candidate [...] y.o. Sex: female Acute subdural hematoma (CMS/HCC) [facility] Physical Therapy Treatment Ambulation: Walking Assistance: Moderate assistance Walking Deficit: Steadying, Verbal cueing, Supervision/safety awareness, Increased time to complete, Assist for foot placement, Assist for trunk control, Assist for weight shifting, Limited endurance, Impaired balance, LE weakness Device: Rolling walker Distance Ambulated (ft): (P) 2 PLOF: Level of [place]: Independent with mobility and functional transfers Lives [...] treatment well Comments pt was I at [facility]; feel she is a good candidate for acute rehab Medical Staff Made Aware Yes Plan PT Discharge Recommendations Inpatient rehab facility placement;custodial facility placement PLAN Acute Care Plan: PT Plan: Skilled PT PT Frequency: Other (Comment) (BID) PT Discharge Recommendations: (P) Inpatient rehab facility placement, custodial facility placement Equipment Recommended: rwalker Time Spent: [...] from the original note were not included. EFRAIN PROGRESS NOTE Date: 11/19/2024 Author: Saundra Bucio MD Patient ID: Isabela iRos is a 79 y.o. female : 1945 MR#: [id number] SUBJECTIVE CC: Here after fall resulting in [...] Signed Date: 11/18/2024 14:33 ET Workstation ID: [id number] Transcribed By: Self Edit Transcribed Date: 11/18/2024 [...] Signed Date: 11/18/2024 06:58 ET Workstation ID: [id number] Transcribed By: Self Edit Transcribed Date: 11/18/2024 [...] management and this was conveyed to our lead case manager. * FRANCES Herrera - 11/19/2024 [...] Signed Date: 11/18/2024 14:33 ET Workstation ID: [id number] Transcribed By: Self Edit Transcribed Date: 11/18/2024 [...] Yordy Garcia Reviewed and Electronically Signed By: Yodry Garcia Signed Date: 11/18/2024 06:58 ET Workstation ID: [id number] Transcribed By: Self Edit Transcribed Date: 11/18/2024 [...] Patient is alert and oriented to person, [facility] , and year. Cranial Nerves: No [...] Orthopedics and Dr. Yeboah from Neurosurgery at [place]. Patient is neurologically stable. Will continue to [...] oral regimen. She has been [place] [facility] [place] to SD[place]. Discussed in length with [...] heparin. This will be communicated to both Efrain and neurosurgery teams. I anticipate we will [...] Signed Date: 11/18/2024 14:33 ET Workstation ID: [id number] Transcribed By: Self Edit Transcribed Date: 11/18/2024 [...] y.o. Sex: female Acute subdural hematoma (CMS/HCC) [facility] Physical Therapy Evaluation PLOF: Level of [place]: Independent with mobility and functional transfers Lives With: Spouse Type of Home: House Home Access: Stairs to enter with rails DME Needs: monae PT Discharge Recommendation: custodial facility placement Reason for current recommendation based [...] of Steps 2 Prior Function Level of [place] Independent with mobility and functional transfers Indoor [...] Frequency Other (Comment) (BID) PT Discharge Recommendations custodial facility placement Equipment Recommended rwalker PT - Evaluation Status Complete PT Evaluation Time Entry PT Evaluation (Moderate) Time Entry 53 PLAN Acute Care Plan: PT Plan: Skilled PT PT Frequency: Other (Comment) (BID) PT Discharge Recommendations: custodial facility placement Equipment Recommended: rwalker Encounter Problems Encounter Problems (Active) Template: Physical [...] from the original note were not included. EFRAIN PROGRESS NOTE Date: 11/18/2024 Author: Saundra Bucio MD Patient ID: Isabela Rios is a 79 y.o. female : 1945 MR#: [id number] SUBJECTIVE CC: Here after fall resulting in [...] surgery -------- FINAL REPORT -------- Dictated By: Yodry Garcia Dictated Date: 11/18/2024 06:55 ET Assigned Physician: Yordy Garcia Reviewed and Electronically Signed By: Yordy Garcia Signed Date: 11/18/2024 06:58 ET Workstation ID: [id number] Transcribed By: Self Edit Transcribed Date: 11/18/2024 [...] oral regimen. She ahs been monitored [place] [facility] due to [place]. Seen by Neurosurgery pre-op [...] from the original note were not included. EFRAIN PROGRESS NOTE Date: 11/17/2024 Author: Saundra Bucio MD Patient ID: Isabela Rios is a 79 y.o. female : 1945 MR#: [id number] SUBJECTIVE CC: Here after fall resulting in [...] at home and confirmed this, it is [id number] medication. Some abdominal discomfort was reported, mid [...] obtained following IV 90 mL Isovue-370. Scanner: Couplewise 64 slice VCT Dose reduction technique: ASIR [...] Signed Date: 11/16/2024 10:45 ET Workstation ID: [id number] Transcribed By: Self Edit Transcribed Date: 11/16/2024 [...] Signed Date: 11/16/2024 07:11 ET Workstation ID: [id number] Transcribed By: Self Edit Transcribed Date: 11/16/2024 [...] -pending surgery as above HCP -daughter Rachel Bernadr and Tucker. Both present at the bedside, [...] Ordered 11/17/24 0001 Adult NPO diet Location: [facility]; Diet: NPO- Except for Medications Diet effective midnight Question Answer Comment Location [facility] Diet NPO- Except for Medications [...] (increased her walking, cut back ). Appetite TELEPHONE ADVICE NURSE: Good Intake TELEPHONE ADVICE NURSE: Stable Vitamins/Minerals/Herbs: one a day type multivitamin [...] from the original note were not included. EFRAIN PROGRESS NOTE Date: 11/16/2024 Author: Bhavin Garcia MD Patient ID: Isabela Rios is a 79 y.o. female : 1945 MR#: [id number] SUBJECTIVE Follow up: SDH, L hip fx, [...] Pulse: 83 82 81 85 Resp: 18 Temp: 36.6 ??C (97.8 ??F) 37.1 [...] Awake, alert, some word finding difficulties. Place: [facility] Knows year. Month November Neurological: No [...] obtained following IV 90 mL Isovue-370. Scanner: [employer] 64 slice VCT Dose reduction technique: ASIR [...] Signed Date: 11/16/2024 10:45 ET Workstation ID: [id number] Transcribed By: Self Edit Transcribed Date: 11/16/2024 [...] Signed Date: 11/16/2024 07:11 ET Workstation ID: [id number] Transcribed By: Self Edit Transcribed Date: 11/16/2024 [...] repair tomorrow S/p Fall Reported hx falls TELEPHONE ADVICE NURSE. Etiology? Acute encephalopathy Dysarthria Cognitive decline Suspect [...] 10:45 AM EST Patient returned from CT, case monitor placed. * Ruth Ibrahim RN - 11/16/2024 7:30 AM EST Attempt to place patient on case monitor, pt continuing to remove. * Petar [...] 4:23 AM EST Patient continuing to remove case monitor every time it is replaced. * [...] let patient get rest and defer putting case monitor back on until 4am when vitals [...] up Transition Plan Back up Transition plan Longterm Facility Discharge Planning Contact (Name, Phone #, Relationship) for DC Planning Tucker Rios spouse [phone] Living Arrangements Spouse/significant other Type of Residence Private residence Support Systems Children Medication Coverage Has Med Coverage Under Insurance Plan Yes Anticipated Discharge Needs DME Needs Front wheeled walker Discipline following for SNF placement Snuff Maker Informed Choice Informed Choice Given? Yes Initial Assessment Notices: Patient choice given. VAL: Unable to determine Barriers to progression of care/discharge: Sitter; left hip surgery 11/16/2023; s/p fall with subdural hematoma; pain management; PT evaluation Plan Dispo: In [facility] preference: [facility]/[address] [place] [address] Referral/Auth status: Placed 11/16 pending Support Persons and Availability: Lives with spouse; supportive daughter lives in [place] Transportation: Ambulance vs stretcher Current/Prior Services/DME: Used no DME Home/Living situation: One level with two steps to entry / status: No If DC to home, readily able to access: Yes Readmission: No Therapy Eval: Pending Covid Vacc: Yes Last BM: ? HCP: No...confused 11/16/2023 Pharmacy: [place], [place] * FRANCES Herrera - 11/15/2024 1:27 [...] and coronal images of brainwere obtained. Scanner: [employer] 64 slice VCT Dose reduction technique: ASIR [...] Signed Date: 11/15/2024 08:30 ET Workstation ID: [id number] Transcribed By: Self Edit Transcribed Date: 11/15/2024 08:25 ET Physical Exam On physical examination, the week patient is awake and alert. PERRL. Speech was clear and fluent. She was oriented to person and to the hospital but could not remember the name of the hospital or theyear. Thought pattern was tangential. HIGUREA. No pronator drift. Output by Drain (mL) [...] from the original note were not included. EFRAIN PROGRESS NOTE Date: 11/15/2024 Author: Bhvain Garcia MD Patient ID: Isabela Rios is a 79 y.o. female : 1945 MR#: [id number] SUBJECTIVE Follow up: SDH, L hip fx, [...] and coronal images of brainwere obtained. Scanner: [employer] 64 slice VCT Dose reduction technique: ASIR [...] sinuses. -------- FINAL REPORT -------- Dictated By: lAli De Anda Dictated Date: 11/15/2024 08:25 ET Assigned Physician: Alli De Anda Reviewed and Electronically Signed By: Alli De Anda Signed Date: 11/15/2024 08:30 ET Workstation ID: [id number] Transcribed By: Self Edit Transcribed Date: 11/15/2024 [...] note were not included. Speech Language Pathology [facility] SENIOR SQL SERVER DATABASE DEVELOPER BEDSIDE SWALLOW EVALUATION NAME: Isabela Rios DATE OF : 1945 [facility] SENIOR SQL SERVER DATABASE DEVELOPER Received On: 11/15/24 Assembler Wet Wash Required: No TIME IN: 1115 TIME OUT: 1145 TOTAL TIME: 30 min MISSED TIME REASON: FAMILY/CAREGIVER PRESENT: No SUBJECTIVE SUBJECTIVE: Orders acknowledged/received, chart reviewed, and patient cleared by JMAMIE Saravia for swallowevaluation. Patient was alert and [...] Closed fracture of left hip, initial encounter ([facility]) [S72.002A] No admission procedures for hospital encounter. [...] and coronal images of brainwere obtained. Scanner: [employer] 64 slice VCT Dose reduction technique: ASIR [...] -------- FINAL REPORT -------- Dictated By: Alli DeA nda Dictated Date: 11/15/2024 08:25 ET Assigned Physician: Alli De Anda Reviewed and Electronically Signed By: Alli De Anda Signed Date: 11/15/2024 08:30 ET Workstation ID: [id number] Transcribed By: Self Edit Transcribed Date: 11/15/2024 [...] Signed Date: 11/14/2024 11:08 ET Workstation ID: [id number] Transcribed By: Self Edit Transcribed Date: 11/14/2024 [...] Administration: One pill at a time SENIOR SQL SERVER DATABASE DEVELOPER ASSESSMENT: SENIOR SQL SERVER DATABASE DEVELOPER Assessment Results: At baseline, Within functional limits Dysphagia Diagnosis: Within Functional Limits Evaluation/Treatment Tolerance: Patient tolerated treatment well Medical Staff Made Aware: Yes Comments: Disucessed w/ RN and message sent to MD CURRENT DIET: Dietary Orders (From admission, onward) Start Ordered 11/16/24 0001 Adult NPO diet Location: [facility]; Diet: NPO- Except for Medications Diet effective now Question Answer Comment Location [facility] Diet NPO- Except for Medications 11/14/24 1442 11/16/24 0001 Adult NPO diet Location: [facility]; Diet: NPO- Except for Medications Diet effective midnight Question Answer Comment Location [facility] Diet NPO- Except for Medications 11/15/24 1036 11/15/24 1236 Adult diet [facility]; General, Modified Consistency Options for Liquids and Solids; Regular; IDDSI Level 7 Easy to Chew Diet effective now Question Answer Comment Location [facility] Diet Type (req) General Diet Type (req) Modified Consistency Options for Liquids and Solids General Diet Regular Modified Consistency Options for Liquids and Solids IDDSI Level 7 Easy to Chew 11/15/24 1235 PLAN OF CARE SENIOR SQL SERVER DATABASE DEVELOPER PLAN SENIOR SQL SERVER DATABASE DEVELOPER Plan: No skilled SENIOR SQL SERVER DATABASE DEVELOPER No Skilled SENIOR SQL SERVER DATABASE DEVELOPER: Independent with swallowing SENIOR SQL SERVER DATABASE DEVELOPER - Evaluation Status: Complete SENIOR SQL SERVER DATABASE DEVELOPER Discharge Recommendations: Home independent Diet Recommendations: IDDSI 7/0, regular and thin liquids DISCHARGE RECOMMENDATIONS No Speech-Language Pathology (SENIOR SQL SERVER DATABASE DEVELOPER) services/needs at next level of care. EDUCATION [...] EST I attest that I, Kathleen Delacruz M.S.,[facility]SENIOR SQL SERVER DATABASE DEVELOPER, was physically involved in the ongoing assessment, [...] Procedure Abnormality Status --------- ------ CBC auto differential[[id number]] Abnormal Final result Please view results for these tests on the individual orders. URINALYSIS WITH REFLEX MICROSCOPIC AND CULTURE Narrative: The following orders were created for panel order Urinalysis with reflex microscopic and culture. Procedure Abnormality Status --------- ------ Urinalysis with reflex ...[[id number]] Estrada urine culture tube[[id number]] Please view results for these tests on [...] Signed Date: 11/14/2024 11:08 ET Workstation ID: [id number] Transcribed By: Self Edit Transcribed Date: 11/14/2024 11:05 ET XR Chest 1 View Final Result No acute findings. -------- FINAL REPORT -------- Dictated By: Vinayak Austin Dictated Date: 11/14/2024 11:08 ET Assigned Physician: Vinayak Austin Reviewed and Electronically Signed By: Vinayak Austin Signed Date: 11/14/2024 11:08 ET Workstation ID: [id number] Transcribed By: Self Edit Transcribed Date: 11/14/2024 11:[address] Head wo Contrast Final Result 8 mm subdural hematoma along the right convexity. -------- FINAL REPORT -------- Dictated By: Vinayak Austin Dictated Date: 11/14/2024 10:30 ET Assigned Physician: Vinayak Austin Reviewed and Electronically Signed By: Vinayak Austin Signed Date: 11/14/2024 10:36 ET Workstation ID: [id number] Transcribed By: Self Edit Transcribed Date: 11/14/2024 [...] Closed fracture of left hip, initial encounter ([facility]) Differential to include ICH, concussion, contusion, left [...] with: admitting provider Diagnosis 1. Subdural hematoma ([facility]) 2. Closed fracture of left hip, initial encounter ([facility]) Disposition Admit to Inpatient ED Prescriptions None Physician Attestation FRANCES George 11/14/24 5553 This is a split/shared visit with FRANCES [...] from the original note were not included. EFRAIN HISTORY AND PHYSICAL Please contact author [Demarcus Villalobos MD] via [employer]frooly. Patient: Isabela Rios Admission Date/Time: 11/14/2024 9:22 AM : 1945 [79 y.o.] Patient's PCP: Garcia Doran MD Attending Provider: Román Guzman MD;Ca* CHIEF COMPLAINT Found on the floor HISTORY OF PRESENT ILLNESS This is s 79-year-old former smoker woman with past medical history significant for hypertension, dyslipidemia, hypothyroidism, osteopenia, depression and anxiety was brought to [facility] ED after her found her around [...] Signed Date: 11/14/2024 14:51 ET Workstation ID: [id number] Transcribed By: Self Edit Transcribed Date: 11/14/2024 14:[address] Lower Extremity wo Contrast Left Final Result Impacted and angulated left femoral neck fracture -------- FINAL REPORT -------- Dictated By: KYLER BARRERA Dictated Date: 11/14/2024 12:26 ET Assigned Physician: KYLER BARRERA Reviewed and Electronically Signed By: KYLER BARRERA Signed Date: 11/14/2024 12:30 ET Workstation ID: [id number] Transcribed By: Self Edit Transcribed Date: 11/14/2024 12:26 ET XR Hip 2-3 Views Left Final Result Acute transcervical femoral neck fracture. -------- FINAL REPORT -------- Dictated By: Vinayak Austin Dictated Date: 11/14/2024 11:05 ET Assigned Physician: Vinayak Austin Reviewed and Electronically Signed By: Vinayak Austin Signed Date: 11/14/2024 11:08 ET Workstation ID: [id number] Transcribed By: Self Edit Transcribed Date: 11/14/2024 11:05 ET XR Chest 1 View Final Result No acute findings. -------- FINAL REPORT -------- Dictated By: Vinayak Austin Dictated Date: 11/14/2024 11:08 ET Assigned Physician: Vinayak Austin Reviewed and Electronically Signed By: Vinayak Austin Signed Date: 11/14/2024 11:08 ET Workstation ID: [id number] Transcribed By: Self Edit Transcribed Date: 11/14/2024 11:[address] Head wo Contrast Final Result 8 mm subdural hematoma along the right convexity. -------- FINAL REPORT -------- Dictated By: Vinayak Austin Dictated Date: 11/14/2024 10:30 ET Assigned Physician: Vinayak Austin Reviewed and Electronically Signed By: Vinayak Austin Signed Date: 11/14/2024 10:36 ET Workstation ID: [id number] Transcribed By: Self Edit Transcribed Date: 11/14/2024 [...] at this point Will get constant digital media strategist May use soft restraints, too 5. Dysarthria [...] reconciliation Health Care proxy: Tucker Rios (): [phone] documented in this encounter Procedure Notes * [...] (posterior approach, cemented) Surgeon: SAIMA Hester MD medical assistant prn: Juan Luis Larsen MD Anesthesia: GETA Anesthesiologist: [...] the position and minimize likelihoodof varus alignment Jyotsna canal was broached with sequential sizes Size [...] awake and alert. She was oriented to [facility], [facility], and the year 2024. She could not [...] This Visit None Visit Diagnoses Subdural hematoma ([facility]) - Primary Closed fracture of left hip, initial encounter ([facility]) Thank you for allowing us to care for your patient. FRANCES Herrera on 11/14/2024 at 7:17 PM EST CC: No ref. provider found Garcia Doran MD [facility] [place] * FRANCES Arnold - 11/14/2024 2:50 PM [...] Signed Date: 11/14/2024 12:30 ET Workstation ID: [id number] Transcribed By: Self Edit Transcribed Date: 11/14/2024 [...] Signed Date: 11/14/2024 11:08 ET Workstation ID: [id number] Transcribed By: Self Edit Transcribed Date: 11/14/2024 [...] Signed Date: 11/14/2024 11:08 ET Workstation ID: [id number] Transcribed By: Self Edit Transcribed Date: 11/14/2024 [...] Signed Date: 11/14/2024 10:36 ET Workstation ID: [id number] Transcribed By: Self Edit Transcribed Date: 11/14/2024 [...] 80 Q-T Interval 430 QTc 495 R [place] 31 T [place] -53 ECG Interpretation Normal sinus rhythm Nonspecific [...] Description 03/06/2025 11:30 AM EDT Office Visit Wireless Communications Engineer - [address] [place] [address] Garcia Doran MD [address] [place] [address] documented as of this encounter Procedures Procedure [...] initial encounter ([facility]) IA HEMIARTHROPLASTY HIP PARTIAL 11/17/2024 12:14 PM EST Hip fracture requiring operative repair, left, closed, initial encounter ([facility]) Case Notes c arm, implants, [...] ECG 12-LEAD Routine 11/14/2024 9:41 AM EST IA CRITICAL CARE EACH ADDITIONAL 30 MINUTES Routine 11/14/2024 9:21 AM EST IA CRITICAL CARE EACH ADDITIONAL 30 MINUTES Routine 11/14/2024 9:21 AM EST IA CRITICAL CARE EACH ADDITIONAL 30 MINUTES Routine 11/14/2024 9:21 AM EST ECG ANNOTATED 11/14/2024 documented in this encounter Results * (ABNORMAL) Complete blood count (11/26/2024 5:49 AM EST) [facility] WBC 8.6 4.8 - 10.8 K/mcL LAB HEMETOLOGY METHOD 11/26/2024 6:[address] [facility] RBC 2.50(L) 3.80 - 4.80 M/mcL LAB HEMETOLOGY METHOD 11/26/2024 6:[address] [facility] Hemoglobin 7.8(L) 11.5 - 16.0 g/dL LAB HEMETOLOGY METHOD 11/26/2024 6:[address] [facility] Hematocrit 25.0(L) 35.0 - 47.0 % LAB HEMETOLOGY METHOD 11/26/2024 6:[address] [facility] MCV 98.8(H) 79.0 - 98.0 FL LAB HEMETOLOGY METHOD 11/26/2024 6:[address] [facility] MCH 30.8 27.0 - 32.0 pcg LAB HEMETOLOGY METHOD 11/26/2024 6:[address] [facility] MCHC 31.2(L) 32.0 - 37.0 g/dL LAB HEMETOLOGY METHOD 11/26/2024 6:[address] [facility] RDW 16.2(H) 11.0 - 15.0 % LAB HEMETOLOGY METHOD 11/26/2024 6:52 AM [facility] Platelets 478(H) 130 - 400 K/mcL LAB HEMETOLOGY METHOD 11/26/2024 6:[address] [facility] MPV 9.2 7.0 - 11.0 FL LAB HEMETOLOGY METHOD 11/26/2024 6:[address] [facility] NRBC 0.0 <1.0 % LAB HEMETOLOGY METHOD 11/26/2024 6:[address] [facility] NRBC Absolute 0.00 <0.10 K/mcL LAB HEMETOLOGY METHOD 11/26/2024 6:[address] [facility] Blood Venous blood specimen / Unknown Venipuncture / Unknown 11/26/2024 5:49 AM EST 11/26/2024 6:33 AM EST us Jaz DANIELS LAB BLOOD ORDERABLES Final Resul t [facility] [address] [place] [address], * Basic metabolic panel (11/26/2024 5:49 AM EST) [facility] Sodium 138 133 - 145 mmol/L LAB CHEMISTRY METHOD 11/26/2024 7:10 AM [facility] Potassium 4.5 3.5 - 5.5 mmol/L LAB CHEMISTRY METHOD 11/26/2024 7:10 AM [facility] Chloride 105 96 - 110 mmol/L LAB CHEMISTRY METHOD 11/26/2024 7:10 AM [facility] CO2 29 21 - 32 mmol/L LAB CHEMISTRY METHOD 11/26/2024 7:10 AM [facility] Anion Gap 4 3 - 11 LAB CHEMISTRY METHOD 11/26/2024 7:10 AM [facility] Glucose 86 70 - 100 mg/dL LAB CHEMISTRY METHOD 11/26/2024 7:10 AM [facility] BUN 15 5 - 25 mg/dL LAB CHEMISTRY METHOD 11/26/2024 7:10 AM [facility] Creatinine 0.72 0.50 - 1.10 mg/dL LAB CHEMISTRY METHOD 11/26/2024 7:10 AM [facility] eGFR 86 >=60 mL/min/1. 73m2 LAB CHEMISTRY METHOD 11/26/2024 7:10 AM [facility] Comment:Calculation based on the??Chronic Kidney Disease Epidemiology Collaboration (CKD-EPI) equation refit??without adjustment for race. BUN/Creatinine Ratio 20.8 LAB CHEMISTRY METHOD 11/26/2024 7:10 AM [facility] Calcium 8.7 8.5 - 10.5 mg/dL LAB CHEMISTRY METHOD 11/26/2024 7:10 AM [facility] Blood Venous blood specimen / Unknown Venipuncture / Unknown 11/26/2024 5:49 AM EST 11/26/2024 6:33 AM EST us Jaz DANIELS LAB BLOOD ORDERABLES Final Resul t [facility] [address] [place] [address], * (ABNORMAL) Complete blood count (11/25/2024 6:59 AM EST) [facility] WBC 9.7 4.8 - 10.8 K/mcL LAB HEMETOLOGY METHOD 11/25/2024 8:05 AM [facility] RBC 2.70(L) 3.80 - 4.80 M/mcL LAB HEMETOLOGY METHOD 11/25/2024 8:05 AM [facility] Hemoglobin 8.1(L) 11.5 - 16.0 g/dL LAB HEMETOLOGY METHOD 11/25/2024 8:05 AM [facility] Hematocrit 25.6(L) 35.0 - 47.0 % LAB HEMETOLOGY METHOD 11/25/2024 8:05 AM [facility] MCV 95.9 79.0 - 98.0 FL LAB HEMETOLOGY METHOD 11/25/2024 8:05 AM [facility] MCH 30.3 27.0 - 32.0 pcg LAB HEMETOLOGY METHOD 11/25/2024 8:05 AM [facility] MCHC 31.6(L) 32.0 - 37.0 g/dL LAB HEMETOLOGY METHOD 11/25/2024 8:05 AM [facility] RDW 15.9(H) 11.0 - 15.0 % LAB HEMETOLOGY METHOD 11/25/2024 8:05 AM [facility] Platelets 437(H) 130 - 400 K/mcL LAB HEMETOLOGY METHOD 11/25/2024 8:05 AM [facility] MPV 9.3 7.0 - 11.0 FL LAB HEMETOLOGY METHOD 11/25/2024 8:05 AM [facility] NRBC 0.0 <1.0 % LAB HEMETOLOGY METHOD 11/25/2024 8:05 AM [facility] NRBC Absolute 0.00 <0.10 K/mcL LAB HEMETOLOGY METHOD 11/25/2024 8:05 AM [facility] Blood Venous blood specimen / Unknown Venipuncture / Unknown 11/25/2024 6:59 AM EST 11/25/2024 7:47 AM EST us Jaz DANIELS LAB BLOOD ORDERABLES Final Resul t [facility] [address] [place] [address], [place] [phone] * (ABNORMAL) Basic metabolic panel (11/25/2024 6:59 AM EST) Sodium 136 133 - 145 mmol/L LAB CHEMISTRY METHOD 11/25/2024 8:47 AM [facility] Potassium 4.4 3.5 - 5.5 mmol/L LAB CHEMISTRY METHOD 11/25/2024 8:47 AM [facility] Chloride 104 96 - 110 mmol/L LAB CHEMISTRY METHOD 11/25/2024 8:47 AM [facility] CO2 30 21 - 32 mmol/L LAB CHEMISTRY METHOD 11/25/2024 8:47 AM [facility] Anion Gap 2(L) 3 - 11 LAB CHEMISTRY METHOD 11/25/2024 8:47 AM [facility] Glucose 95 70 - 100 mg/dL LAB CHEMISTRY METHOD 11/25/2024 8:47 AM [facility] BUN 16 5 - 25 mg/dL LAB CHEMISTRY METHOD 11/25/2024 8:47 AM [facility] Creatinine 0.75 0.50 - 1.10 mg/dL LAB CHEMISTRY METHOD 11/25/2024 8:47 AM [facility] eGFR 82 >=60 mL/min/1. 73m2 LAB CHEMISTRY METHOD 11/25/2024 8:[address] [facility] Comment:Calculation based on the??Chronic Kidney Disease Epidemiology Collaboration (CKD-EPI) equation refit??without adjustment for race. BUN/Creatinine Ratio 21.3 LAB CHEMISTRY METHOD 11/25/2024 8:47 AM [facility] Calcium 8.8 8.5 - 10.5 mg/dL LAB CHEMISTRY METHOD 11/25/2024 8:47 AM [facility] Blood Venous blood specimen / Unknown Venipuncture / Unknown 11/25/2024 6:59 AM EST 11/25/2024 7:36 AM EST us Jaz DANIELS LAB BLOOD ORDERABLES Final Resul t [facility] [address] [place] [address], * (ABNORMAL) Complete blood count (11/24/2024 6:24 AM EST) WBC 8.1 4.8 - 10.8 K/mcL LAB HEMETOLOGY METHOD 11/24/2024 7:31 AM [facility] RBC 2.80(L) 3.80 - 4.80 M/mcL LAB HEMETOLOGY METHOD 11/24/2024 7:31 AM [facility] Hemoglobin 8.8(L) 11.5 - 16.0 g/dL LAB HEMETOLOGY METHOD 11/24/2024 7:31 AM [facility] Hematocrit 26.9(L) 35.0 - 47.0 % LAB HEMETOLOGY METHOD 11/24/2024 7:31 AM [facility] MCV 96.1 79.0 - 98.0 FL LAB HEMETOLOGY METHOD 11/24/2024 7:31 AM [facility] MCH 31.4 27.0 - 32.0 pcg LAB HEMETOLOGY METHOD 11/24/2024 7:[address] [facility] MCHC 32.7 32.0 - 37.0 g/dL LAB HEMETOLOGY METHOD 11/24/2024 7:[address] [facility] RDW 15.4(H) 11.0 - 15.0 % LAB HEMETOLOGY METHOD 11/24/2024 7:31 AM [facility] Platelets 389 130 - 400 K/mcL LAB HEMETOLOGY METHOD 11/24/2024 7:[address] [facility] MPV 9.2 7.0 - 11.0 FL LAB HEMETOLOGY METHOD 11/24/2024 7:[address] [facility] NRBC 0.2 <1.0 % LAB HEMETOLOGY METHOD 11/24/2024 7:31 AM [facility] NRBC Absolute 0.02 <0.10 K/mcL LAB HEMETOLOGY METHOD 11/24/2024 7:31 AM [facility] Blood Venous blood specimen / Unknown Venipuncture / Unknown 11/24/2024 6:24 AM EST 11/24/2024 6:48 AM EST us Jaz DANIELS LAB BLOOD ORDERABLES Final Resul t [facility] [address] [place] [address], * (ABNORMAL) Basic metabolic panel (11/24/2024 6:24 AM EST) Sodium 138 133 - 145 mmol/L LAB CHEMISTRY METHOD 11/24/2024 8:12 AM [facility] Potassium 4.1 3.5 - 5.5 mmol/L LAB CHEMISTRY METHOD 11/24/2024 8:12 AM [facility] Chloride 105 96 - 110 mmol/L LAB CHEMISTRY METHOD 11/24/2024 8:[address] [facility] CO2 30 21 - 32 mmol/L LAB CHEMISTRY METHOD 11/24/2024 8:12 AM [facility] Anion Gap 3 3 - 11 LAB CHEMISTRY METHOD 11/24/2024 8:12 AM [facility] Glucose 101(H) 70 - 100 mg/dL LAB CHEMISTRY METHOD 11/24/2024 8:12 AM [facility] BUN 16 5 - 25 mg/dL LAB CHEMISTRY METHOD 11/24/2024 8:12 AM [facility] Creatinine 0.77 0.50 - 1.10 mg/dL LAB CHEMISTRY METHOD 11/24/2024 8:12 AM [facility] eGFR 80 >=60 mL/min/1. 73m2 LAB CHEMISTRY METHOD 11/24/2024 8:12 AM [facility] Comment:Calculation based on the??Chronic Kidney Disease Epidemiology Collaboration (CKD-EPI) equation refit??without adjustment for race. BUN/Creatinine Ratio 20.8 LAB CHEMISTRY METHOD 11/24/2024 8:12 AM [facility] Calcium 8.8 8.5 - 10.5 mg/dL LAB CHEMISTRY METHOD 11/24/2024 8:12 AM [facility] Blood Venous blood specimen / Unknown Venipuncture / Unknown 11/24/2024 6:24 AM EST 11/24/2024 6:48 AM EST us Jaz DANIELS LAB BLOOD ORDERABLES Final Resul t [facility] [address] [place] [address], * (ABNORMAL) Complete blood count (11/23/2024 6:25 AM EST) WBC 9.4 4.8 - 10.8 K/mcL LAB HEMETOLOGY METHOD 11/23/2024 7:[address] [facility] RBC 2.80(L) 3.80 - 4.80 M/mcL LAB HEMETOLOGY METHOD 11/23/2024 7:28 AM [facility] Hemoglobin 8.7(L) 11.5 - 16.0 g/dL LAB HEMETOLOGY METHOD 11/23/2024 7:28 AM [facility] Hematocrit 27.2(L) 35.0 - 47.0 % LAB HEMETOLOGY METHOD 11/23/2024 7:28 AM [facility] MCV 96.5 79.0 - 98.0 FL LAB HEMETOLOGY METHOD 11/23/2024 7:28 AM [facility] MCH 30.9 27.0 - 32.0 pcg LAB HEMETOLOGY METHOD 11/23/2024 7:28 AM [facility] MCHC 32.0 32.0 - 37.0 g/dL LAB HEMETOLOGY METHOD 11/23/2024 7:28 AM [facility] RDW 15.3(H) 11.0 - 15.0 % LAB HEMETOLOGY METHOD 11/23/2024 7:28 AM [facility] Platelets 345 130 - 400 K/mcL LAB HEMETOLOGY METHOD 11/23/2024 7:28 AM [facility] MPV 9.6 7.0 - 11.0 FL LAB HEMETOLOGY METHOD 11/23/2024 7:28 AM [facility] NRBC 0.0 <1.0 % LAB HEMETOLOGY METHOD 11/23/2024 7:28 AM [facility] NRBC Absolute 0.00 <0.10 K/mcL LAB HEMETOLOGY METHOD 11/23/2024 7:28 AM [facility] Blood Venous blood specimen / Unknown Venipuncture / Unknown 11/23/2024 6:25 AM EST 11/23/2024 7:04 AM EST us Jaz DANIELS LAB BLOOD ORDERABLES Final Resul t [facility] [address] [place] [address], * Basic metabolic panel (11/23/2024 6:25 AM EST) Sodium 139 133 - 145 mmol/L LAB CHEMISTRY METHOD 11/23/2024 7:38 AM [facility] Potassium 4.2 3.5 - 5.5 mmol/L LAB CHEMISTRY METHOD 11/23/2024 7:38 AM [facility] Chloride 106 96 - 110 mmol/L LAB CHEMISTRY METHOD 11/23/2024 7:38 AM [facility] CO2 29 21 - 32 mmol/L LAB CHEMISTRY METHOD 11/23/2024 7:38 AM [facility] Anion Gap 4 3 - 11 LAB CHEMISTRY METHOD 11/23/2024 7:38 AM [facility] Glucose 89 70 - 100 mg/dL LAB CHEMISTRY METHOD 11/23/2024 7:38 AM [facility] BUN 15 5 - 25 mg/dL LAB CHEMISTRY METHOD 11/23/2024 7:38 AM [facility] Creatinine 0.64 0.50 - 1.10 mg/dL LAB CHEMISTRY METHOD 11/23/2024 7:38 AM [facility] eGFR 91 >=60 mL/min/1. 73m2 LAB CHEMISTRY METHOD 11/23/2024 7:38 AM [facility] Comment:Calculation based on the??Chronic Kidney Disease Epidemiology Collaboration (CKD-EPI) equation refit??without adjustment for race. BUN/Creatinine Ratio 23.4 LAB CHEMISTRY METHOD 11/23/2024 7:38 AM [facility] Calcium 8.9 8.5 - 10.5 mg/dL LAB CHEMISTRY METHOD 11/23/2024 7:38 AM [facility] Blood Venous blood specimen / Unknown Venipuncture / Unknown 11/23/2024 6:25 AM EST 11/23/2024 7:04 AM EST us Jaz DANIELS LAB BLOOD ORDERABLES Final Resul t [facility] [address] [place] [address], * (ABNORMAL) Complete blood count (11/22/2024 6:37 AM EST) WBC 8.6 4.8 - 10.8 K/mcL LAB HEMETOLOGY METHOD 11/22/2024 7:20 AM [facility] RBC 2.70(L) 3.80 - 4.80 M/mcL LAB HEMETOLOGY METHOD 11/22/2024 7:20 AM [facility] Hemoglobin 8.3(L) 11.5 - 16.0 g/dL LAB HEMETOLOGY METHOD 11/22/2024 7:20 AM [facility] Hematocrit 25.9(L) 35.0 - 47.0 % LAB HEMETOLOGY METHOD 11/22/2024 7:20 AM [facility] MCV 96.6 79.0 - 98.0 FL LAB HEMETOLOGY METHOD 11/22/2024 7:20 AM [facility] MCH 31.0 27.0 - 32.0 pcg LAB HEMETOLOGY METHOD 11/22/2024 7:20 AM [facility] MCHC 32.0 32.0 - 37.0 g/dL LAB HEMETOLOGY METHOD 11/22/2024 7:20 AM [facility] RDW 15.0 11.0 - 15.0 % LAB HEMETOLOGY METHOD 11/22/2024 7:20 AM [facility] Platelets 273 130 - 400 K/mcL LAB HEMETOLOGY METHOD 11/22/2024 7:[address] [facility] MPV 9.3 7.0 - 11.0 FL LAB HEMETOLOGY METHOD 11/22/2024 7:[address] [facility] NRBC 0.0 <1.0 % LAB HEMETOLOGY METHOD 11/22/2024 7:[address] [facility] NRBC Absolute 0.00 <0.10 K/mcL LAB HEMETOLOGY METHOD 11/22/2024 7:[address] [facility] Blood Venous blood specimen / Unknown Venipuncture / Unknown 11/22/2024 6:37 AM EST 11/22/2024 7:01 AM EST us Jaz DANIELS LAB BLOOD ORDERABLES Final Resul t [facility] [address] [place] [address], * (ABNORMAL) Basic metabolic panel (11/22/2024 6:37 AM EST) Sodium 139 133 - 145 mmol/L LAB CHEMISTRY METHOD 11/22/2024 8:17 AM [facility] Potassium 4.9 3.5 - 5.5 mmol/L LAB CHEMISTRY METHOD 11/22/2024 8:17 AM [facility] Chloride 106 96 - 110 mmol/L LAB CHEMISTRY METHOD 11/22/2024 8:17 AM [facility] CO2 31 21 - 32 mmol/L LAB CHEMISTRY METHOD 11/22/2024 8:17 AM [facility] Anion Gap 2(L) 3 - 11 LAB CHEMISTRY METHOD 11/22/2024 8:17 AM [facility] Glucose 98 70 - 100 mg/dL LAB CHEMISTRY METHOD 11/22/2024 8:17 AM [facility] BUN 17 5 - 25 mg/dL LAB CHEMISTRY METHOD 11/22/2024 8:[address] [facility] Creatinine 0.64 0.50 - 1.10 mg/dL LAB CHEMISTRY METHOD 11/22/2024 8:[address] [facility] eGFR 91 >=60 mL/min/1. 73m2 LAB CHEMISTRY METHOD 11/22/2024 8:[address] [facility] Comment:Calculation based on the??Chronic Kidney Disease Epidemiology Collaboration (CKD-EPI) equation refit??without adjustment for race. BUN/Creatinine Ratio 26.6 LAB CHEMISTRY METHOD 11/22/2024 8:[address] [facility] Calcium 8.5 8.5 - 10.5 mg/dL LAB CHEMISTRY METHOD 11/22/2024 8:[address] [facility] Blood Venous blood specimen / Unknown Venipuncture / Unknown 11/22/2024 6:37 AM EST 11/22/2024 7:01 AM EST us Jaz DANIELS LAB BLOOD ORDERABLES Final Resul t [facility] [address] [place] [address], * CT Head wo Contrast (11/21/2024 8:31 [...] Signed Date: 11/21/2024 08:46 ET Workstation ID: [id number] Transcribed By: Self Edit Transcribed Date: 11/21/2024 [...] Signed Date: 11/21/2024 08:46 ET Workstation ID: [id number] Transcribed By: Self Edit Transcribed Date: 11/21/2024 08:43 ET us Janey DANIELS IMG CT PROCEDURES Final Resu lt * (ABNORMAL) Complete blood count (11/21/2024 5:41 AM EST) [facility] WBC 8.4 4.8 - 10.8 K/mcL LAB HEMETOLOGY METHOD 11/21/2024 7:17 AM [facility] RBC 2.70(L) 3.80 - 4.80 M/mcL LAB HEMETOLOGY METHOD 11/21/2024 7:17 AM [facility] Hemoglobin 8.2(L) 11.5 - 16.0 g/dL LAB HEMETOLOGY METHOD 11/21/2024 7:17 AM [facility] Hematocrit 26.0(L) 35.0 - 47.0 % LAB HEMETOLOGY METHOD 11/21/2024 7:17 AM [facility] MCV 96.3 79.0 - 98.0 FL LAB HEMETOLOGY METHOD 11/21/2024 7:17 AM [facility] MCH 30.4 27.0 - 32.0 pcg LAB HEMETOLOGY METHOD 11/21/2024 7:17 AM [facility] MCHC 31.5(L) 32.0 - 37.0 g/dL LAB HEMETOLOGY METHOD 11/21/2024 7:17 AM [facility] RDW 15.2(H) 11.0 - 15.0 % LAB HEMETOLOGY METHOD 11/21/2024 7:17 AM [facility] Platelets 235 130 - 400 K/mcL LAB HEMETOLOGY METHOD 11/21/2024 7:17 AM [facility] MPV 9.8 7.0 - 11.0 FL LAB HEMETOLOGY METHOD 11/21/2024 7:17 AM [facility] NRBC 0.0 <1.0 % LAB HEMETOLOGY METHOD 11/21/2024 7:17 AM [facility] NRBC Absolute 0.00 <0.10 K/mcL LAB HEMETOLOGY METHOD 11/21/2024 7:17 AM [facility] Blood Venous blood specimen / Unknown Venipuncture / Unknown 11/21/2024 5:41 AM EST 11/21/2024 6:25 AM EST us Jaz DANIELS LAB BLOOD ORDERABLES Final Resul t [facility] [address] [place] [address], [place] [phone] * (ABNORMAL) Basic metabolic panel (11/21/2024 5:41 AM EST) Sodium 138 133 - 145 mmol/L LAB CHEMISTRY METHOD 11/21/2024 7:13 AM [facility] Potassium 4.0 3.5 - 5.5 mmol/L LAB CHEMISTRY METHOD 11/21/2024 7:13 AM [facility] Chloride 104 96 - 110 mmol/L LAB CHEMISTRY METHOD 11/21/2024 7:13 AM [facility] CO2 29 21 - 32 mmol/L LAB CHEMISTRY METHOD 11/21/2024 7:13 AM [facility] Anion Gap 5 3 - 11 LAB CHEMISTRY METHOD 11/21/2024 7:13 AM [facility] Glucose 99 70 - 100 mg/dL LAB CHEMISTRY METHOD 11/21/2024 7:13 AM [facility] BUN 18 5 - 25 mg/dL LAB CHEMISTRY METHOD 11/21/2024 7:13 AM [facility] Creatinine 0.60 0.50 - 1.10 mg/dL LAB CHEMISTRY METHOD 11/21/2024 7:13 AM [facility] eGFR 93 >=60 mL/min/1. 73m2 LAB CHEMISTRY METHOD 11/21/2024 7:13 AM [facility] Comment:Calculation based on the??Chronic Kidney Disease Epidemiology Collaboration (CKD-EPI) equation refit??without adjustment for race. BUN/Creatinine Ratio 30.0 LAB CHEMISTRY METHOD 11/21/2024 7:13 AM [facility] Calcium 8.1(L) 8.5 - 10.5 mg/dL LAB CHEMISTRY METHOD 11/21/2024 7:13 AM [facility] Blood Venous blood specimen / Unknown Venipuncture / Unknown 11/21/2024 5:41 AM EST 11/21/2024 6:25 AM EST us Jaz DANIELS LAB BLOOD ORDERABLES Final Resul t [facility] [address] [place] [address], * (ABNORMAL) Complete blood count (11/20/2024 6:09 AM EST) WBC 7.6 4.8 - 10.8 K/mcL LAB HEMETOLOGY METHOD 11/20/2024 7:53 AM [facility] RBC 2.70(L) 3.80 - 4.80 M/[facility] LAB HEMETOLOGY METHOD 11/20/2024 7:53 AM [facility] Hemoglobin 8.3(L) 11.5 - 16.0 g/dL LAB HEMETOLOGY METHOD 11/20/2024 7:53 AM [facility] Hematocrit 26.4(L) 35.0 - 47.0 % LAB HEMETOLOGY METHOD 11/20/2024 7:53 AM [facility] MCV 97.8 79.0 - 98.0 FL LAB HEMETOLOGY METHOD 11/20/2024 7:53 AM [facility] MCH 30.7 27.0 - 32.0 pcg LAB HEMETOLOGY METHOD 11/20/2024 7:53 AM [facility] MCHC 31.4(L) 32.0 - 37.0 g/dL LAB HEMETOLOGY METHOD 11/20/2024 7:[address] [facility] RDW 15.4(H) 11.0 - 15.0 % LAB HEMETOLOGY METHOD 11/20/2024 7:53 AM [facility] Platelets 195 130 - 400 K/mcL LAB HEMETOLOGY METHOD 11/20/2024 7:53 AM [facility] MPV 10.1 7.0 - 11.0 FL LAB HEMETOLOGY METHOD 11/20/2024 7:53 AM [facility] NRBC 0.0 <1.0 % LAB HEMETOLOGY METHOD 11/20/2024 7:53 AM [facility] NRBC Absolute 0.00 <0.10 K/mcL LAB HEMETOLOGY METHOD 11/20/2024 7:53 AM [facility] Blood Venous blood specimen / Unknown Venipuncture / Unknown 11/20/2024 6:09 AM EST 11/20/2024 7:28 AM EST us Jaz DANIELS LAB BLOOD ORDERABLES Final Resul t [facility] [address] [place] [address], * (ABNORMAL) Basic metabolic panel (11/20/2024 6:09 AM EST) Sodium 138 133 - 145 mmol/L LAB CHEMISTRY METHOD 11/20/2024 8:[address] [facility] Potassium 4.1 3.5 - 5.5 mmol/L LAB CHEMISTRY METHOD 11/20/2024 8:32 AM [facility] Chloride 106 96 - 110 mmol/L LAB CHEMISTRY METHOD 11/20/2024 8:[address] [facility] CO2 30 21 - 32 mmol/L LAB CHEMISTRY METHOD 11/20/2024 8:32 AM [facility] Anion Gap 2(L) 3 - 11 LAB CHEMISTRY METHOD 11/20/2024 8:32 AM [facility] Glucose 94 70 - 100 mg/dL LAB CHEMISTRY METHOD 11/20/2024 8:32 AM [facility] BUN 21 5 - 25 mg/dL LAB CHEMISTRY METHOD 11/20/2024 8:32 AM [facility] Creatinine 0.67 0.50 - 1.10 mg/dL LAB CHEMISTRY METHOD 11/20/2024 8:32 AM [facility] eGFR 90 >=60 mL/min/1. 73m2 LAB CHEMISTRY METHOD 11/20/2024 8:32 AM [facility] Comment:Calculation based on the??Chronic Kidney Disease Epidemiology Collaboration (CKD-EPI) equation refit??without adjustment for race. BUN/Creatinine Ratio 31.3 LAB CHEMISTRY METHOD 11/20/2024 8:32 AM [facility] Calcium 8.3(L) 8.5 - 10.5 mg/dL LAB CHEMISTRY METHOD 11/20/2024 8:32 AM [facility] Blood Venous blood specimen / Unknown Venipuncture / Unknown 11/20/2024 6:09 AM EST 11/20/2024 7:26 AM EST us Jaz DANIELS LAB BLOOD ORDERABLES Final Resul t [facility] [address] [place] [address], * (ABNORMAL) Complete blood count (11/19/2024 6:01 AM EST) WBC 8.1 4.8 - 10.8 K/mcL LAB HEMETOLOGY METHOD 11/19/2024 7:06 AM [facility] RBC 2.70(L) 3.80 - 4.80 M/mcL LAB HEMETOLOGY METHOD 11/19/2024 7:06 AM [facility] Hemoglobin 8.3(L) 11.5 - 16.0 g/dL LAB HEMETOLOGY METHOD 11/19/2024 7:06 AM [facility] Hematocrit 25.8(L) 35.0 - 47.0 % LAB HEMETOLOGY METHOD 11/19/2024 7:06 AM [facility] MCV 95.2 79.0 - 98.0 FL LAB HEMETOLOGY METHOD 11/19/2024 7:06 AM [facility] MCH 30.6 27.0 - 32.0 pcg LAB HEMETOLOGY METHOD 11/19/2024 7:06 AM [facility] MCHC 32.2 32.0 - 37.0 g/dL LAB HEMETOLOGY METHOD 11/19/2024 7:06 AM [facility] RDW 15.6(H) 11.0 - 15.0 % LAB HEMETOLOGY METHOD 11/19/2024 7:06 AM [facility] Platelets 165 130 - 400 K/mcL LAB HEMETOLOGY METHOD 11/19/2024 7:06 AM [facility] MPV 10.4 7.0 - 11.0 FL LAB HEMETOLOGY METHOD 11/19/2024 7:06 AM [facility] NRBC 0.0 <1.0 % LAB HEMETOLOGY METHOD 11/19/2024 7:06 AM [facility] NRBC Absolute 0.00 <0.10 K/mcL LAB HEMETOLOGY METHOD 11/19/2024 7:06 AM [facility] Blood Venous blood specimen / Unknown Venipuncture / Unknown 11/19/2024 6:01 AM EST 11/19/2024 6:38 AM EST us Jaz DANIELS LAB BLOOD ORDERABLES Final Resul t [facility] [address] [place] [address], * (ABNORMAL) Basic metabolic panel (11/19/2024 6:01 AM EST) Sodium 139 133 - 145 mmol/L LAB CHEMISTRY METHOD 11/19/2024 7:25 AM [facility] Potassium 4.0 3.5 - 5.5 mmol/L LAB CHEMISTRY METHOD 11/19/2024 7:25 AM [facility] Chloride 108 96 - 110 mmol/L LAB CHEMISTRY METHOD 11/19/2024 7:25 AM [facility] CO2 27 21 - 32 mmol/L LAB CHEMISTRY METHOD 11/19/2024 7:25 AM [facility] Anion Gap 4 3 - 11 LAB CHEMISTRY METHOD 11/19/2024 7:25 AM [facility] Glucose 97 70 - 100 mg/dL LAB CHEMISTRY METHOD 11/19/2024 7:25 AM [facility] BUN 25 5 - 25 mg/dL LAB CHEMISTRY METHOD 11/19/2024 7:25 AM [facility] Creatinine 0.71 0.50 - 1.10 mg/dL LAB CHEMISTRY METHOD 11/19/2024 7:25 AM [facility] eGFR 88 >=60 mL/min/1. 73m2 LAB CHEMISTRY METHOD 11/19/2024 7:25 AM [facility] Comment:Calculation based on the??Chronic Kidney Disease Epidemiology Collaboration (CKD-EPI) equation refit??without adjustment for race. BUN/Creatinine Ratio 35.2 LAB CHEMISTRY METHOD 11/19/2024 7:25 AM [facility] Calcium 8.1(L) 8.5 - 10.5 mg/dL LAB CHEMISTRY METHOD 11/19/2024 7:25 AM [facility] Blood Venous blood specimen / Unknown Venipuncture / Unknown 11/19/2024 6:01 AM EST 11/19/2024 6:37 AM EST us Jaz DANIELS LAB BLOOD ORDERABLES Final Resul t [facility] [address] [place] [address], * MR Brain wo Contrast (11/18/2024 7:01 [...] Signed Date: 11/18/2024 14:33 ET Workstation ID: [id number] Transcribed By: Self Edit Transcribed Date: 11/18/2024 [...] Signed Date: 11/18/2024 14:33 ET Workstation ID: [id number] Transcribed By: Self Edit Transcribed Date: 11/18/2024 [...] 76 mL CV PACS Left Atrium Minor [place] 5.3 cm CV PACS Left At[facility] Major [place] 5.5 cm CV PACS LA Area Sys [...] Proximal 1.5 cm CV PACS MV Deceleration [place] 5.0 m/s2 CV PACS E Wave Deceleration [...] Complete blood count (11/18/2024 5:44 AM EST) Pathologist [facility] WBC 8.2 4.8 - 10.8 K/mcL LAB HEMETOLOGY METHOD 11/18/2024 7:01 AM [facility] RBC 3.00(L) 3.80 - 4.80 M/mcL LAB HEMETOLOGY METHOD 11/18/2024 7:01 AM [facility] Hemoglobin 9.0(L) 11.5 - 16.0 g/dL LAB HEMETOLOGY METHOD 11/18/2024 7:01 AM [facility] Hematocrit 27.8(L) 35.0 - 47.0 % LAB HEMETOLOGY METHOD 11/18/2024 7:01 AM [facility] MCV 94.2 79.0 - 98.0 FL LAB HEMETOLOGY METHOD 11/18/2024 7:01 AM [facility] MCH 30.5 27.0 - 32.0 pcg LAB HEMETOLOGY METHOD 11/18/2024 7:01 AM [facility] MCHC 32.4 32.0 - 37.0 g/dL LAB HEMETOLOGY METHOD 11/18/2024 7:01 AM [facility] RDW 15.6(H) 11.0 - 15.0 % LAB HEMETOLOGY METHOD 11/18/2024 7:01 AM [facility] Platelets 158 130 - 400 K/mcL LAB HEMETOLOGY METHOD 11/18/2024 7:[address] [facility] MPV 10.6 7.0 - 11.0 FL LAB HEMETOLOGY METHOD 11/18/2024 7:[address] [facility] NRBC 0.0 <1.0 % LAB HEMETOLOGY METHOD 11/18/2024 7:[address] [facility] NRBC Absolute 0.00 <0.10 K/mcL LAB HEMETOLOGY METHOD 11/18/2024 7:01 AM [facility] Blood Venous blood specimen / Unknown Venipuncture / Unknown 11/18/2024 5:44 AM EST 11/18/2024 6:15 AM EST us Jza DANIELS LAB BLOOD ORDERABLES Final Resul t [facility] [address] [place] [address], [place] [phone] * (ABNORMAL) Basic metabolic panel (11/18/2024 5:44 AM EST) Sodium 140 133 - 145 mmol/L LAB CHEMISTRY METHOD 11/18/2024 7:00 AM [facility] Potassium 4.7 3.5 - 5.5 mmol/L LAB CHEMISTRY METHOD 11/18/2024 7:00 AM [facility] Chloride 108 96 - 110 mmol/L LAB CHEMISTRY METHOD 11/18/2024 7:00 AM [facility] CO2 25 21 - 32 mmol/L LAB CHEMISTRY METHOD 11/18/2024 7:00 AM [facility] Anion Gap 7 3 - 11 LAB CHEMISTRY METHOD 11/18/2024 7:00 AM [facility] Glucose 119(H) 70 - 100 mg/dL LAB CHEMISTRY METHOD 11/18/2024 7:00 AM [facility] BUN 27(H) 5 - 25 mg/dL LAB CHEMISTRY METHOD 11/18/2024 7:[address] [facility] Creatinine 0.89 0.50 - 1.10 mg/dL LAB CHEMISTRY METHOD 11/18/2024 7:00 AM [facility] eGFR 67 >=60 mL/min/1. 73m2 LAB CHEMISTRY METHOD 11/18/2024 7:[address] [facility] Comment:Calculation based on the??Chronic Kidney Disease Epidemiology Collaboration (CKD-EPI) equation refit??without adjustment for race. BUN/Creatinine Ratio 30.3 LAB CHEMISTRY METHOD 11/18/2024 7:00 AM [facility] Calcium 8.4(L) 8.5 - 10.5 mg/dL LAB CHEMISTRY METHOD 11/18/2024 7:00 AM [facility] Blood Venous blood specimen / Unknown Venipuncture / Unknown 11/18/2024 5:44 AM EST 11/18/2024 6:15 AM EST us Jaz DANIELS LAB BLOOD ORDERABLES Final Resul t [facility] [address] [place] [address], * XR Pelvis 1-2 Views (11/17/2024 4:41 PM EST) Anatomical Region Laterality Modality Body, Pelvis Radiographic Jalyn ging 11/17/2024 4:53 PM EST Impressions 11/17/2024 4:54 PM EST Impression: Postop left femoral endoprosthesis placement, with prosthesis appearing satisfactorily positioned. Ganesh DANIELS ([id number]) -------- FINAL REPORT -------- Dictated By: Muna Roblero Dictated Date: 11/17/2024 16:53 ET Assigned Physician: Muna Roblero Reviewed and Electronically Signed By: Muna Roblero Signed Date: 11/17/2024 16:54 ET Workstation ID: [id number] Transcribed By: Self Edit Transcribed Date: 11/17/2024 [...] placement, with prosthesis appearingsatisfactorily positioned. Teleyehuda DANIELS ([id number]) -------- FINAL REPORT -------- Dictated By: Muna Roblero Dictated Date: 11/17/2024 16:53 ET Assigned Physician: Muna Roblero Reviewed and Electronically Signed By: Muna Roblero Signed Date: 11/17/2024 16:54 ET Workstation ID: [id number] Transcribed By: Self Edit Transcribed Date: 11/17/2024 16:53 ET us Jaz DANIELS IMG XR PROCEDURES Final Result [...] Signed Date: 11/18/2024 06:58 ET Workstation ID: [id number] Transcribed By: Self Edit Transcribed Date: 11/18/2024 [...] Signed Date: 11/18/2024 06:58 ET Workstation ID: [id number] Transcribed By: Self Edit Transcribed Date: 11/18/2024 06:55 ET us Elva Hester MD IMG XR PROCEDURES Final R esult * Tissue exam (11/17/2024 1:17 PM EST) Final Diagnosis Bone, left femoral head: -CONSISTENT WITH FRACTURE 11/19/2024 10:45 AM [facility] Gross Description A. Bone, [...] some hemorrhage around the margin. A sales representative advertising section is submitted in one cassette following decalcification, one piece CHECO 11/19/2024 10:45 AM [facility] Disclaimer Unless otherwise specified, all tissue is 10% NB formalin fixed and paraffin embedded. 11/19/2024 10:45 AM [facility] Bone Specimen from bone / Unknown 11/17/2024 1:17 PM EST 11/17/2024 3:55 PM EST us Elva Hester MD LAB PATHOLOGY ORDERABLES Final Result [facility] [address] [place] [address], * (ABNORMAL) CBC auto differential (11/17/2024 6:43 AM EST) WBC 7.4 4.8 - 10.8 K/mcL LAB HEMETOLOGY METHOD 11/17/2024 7:26 AM [facility] RBC 3.40(L) 3.80 - 4.80 M/mcL LAB HEMETOLOGY METHOD 11/17/2024 7:26 AM [facility] Hemoglobin 10.6(L) 11.5 - 16.0 g/dL LAB HEMETOLOGY METHOD 11/17/2024 7:26 AM [facility] Hematocrit 32.3(L) 35.0 - 47.0 % LAB HEMETOLOGY METHOD 11/17/2024 7:26 AM [facility] MCV 94.2 79.0 - 98.0 FL LAB HEMETOLOGY METHOD 11/17/2024 7:26 AM [facility] MCH 30.9 27.0 - 32.0 pcg LAB HEMETOLOGY METHOD 11/17/2024 7:26 AM [facility] MCHC 32.8 32.0 - 37.0 g/dL LAB HEMETOLOGY METHOD 11/17/2024 7:26 AM [facility] RDW 15.3(H) 11.0 - 15.0 % LAB HEMETOLOGY METHOD 11/17/2024 7:26 AM [facility] Platelets 150 130 - 400 K/mcL LAB HEMETOLOGY METHOD 11/17/2024 7:26 AM [facility] MPV 10.6 7.0 - 11.0 FL LAB HEMETOLOGY METHOD 11/17/2024 7:26 AM [facility] NRBC 0.0 <1.0 % LAB HEMETOLOGY METHOD 11/17/2024 7:26 AM [facility] NRBC Absolute 0.00 <0.10 K/mcL LAB HEMETOLOGY METHOD 11/17/2024 7:26 AM [facility] Neutrophils Relative 73.8 % LAB HEMETOLOGY METHOD 11/17/2024 7:26 AM [facility] Lymphocytes Relative 11.4 % LAB HEMETOLOGY METHOD 11/17/2024 7:26 AM [facility] Monocytes Relative 9.7 % LAB HEMETOLOGY METHOD 11/17/2024 7:26 AM [facility] Eosinophils Relative 4.3 % LAB HEMETOLOGY METHOD 11/17/2024 7:[address] [facility] Basophils Relative 0.3 % LAB HEMETOLOGY METHOD 11/17/2024 7:26 AM [facility] Immature Granulocytes Relative 0.5 % LAB HEMETOLOGY METHOD 11/17/2024 7:26 AM [facility] Neutrophils Absolute 5.48 1.50 - 7.00 K/mcL LAB HEMETOLOGY METHOD 11/17/2024 7:[address] [facility] Lymphocytes Absolute 0.85(L) 1.00 - 5.00 K/mcL LAB HEMETOLOGY METHOD 11/17/2024 7:26 AM [facility] Monocytes Absolute 0.72 0.20 - 1.00 K/mcL LAB HEMETOLOGY METHOD 11/17/2024 7:[address] [facility] Eosinophils Absolute 0.32 0.00 - 0.50 K/mcL LAB HEMETOLOGY METHOD 11/17/2024 7:[address] [facility] Basophils Absolute 0.02 0.00 - 0.20 K/mcL LAB HEMETOLOGY METHOD 11/17/2024 7:26 AM [facility] Immature Granulocytes Absolute 0.04(H) 0.00 - 0.03 K/mcL LAB HEMETOLOGY METHOD 11/17/2024 7:[address] [facility] Blood Venous blood specimen / Unknown Venipuncture / Unknown 11/17/2024 6:43 AM EST 11/17/2024 7:07 AM EST us Bhavin Garcia MD LAB BLOOD ORDERABLES Final Re sult [facility] [address] [place] [address], * (ABNORMAL) Basic metabolic panel (11/17/2024 6:43 AM EST) Sodium 139 133 - 145 mmol/L LAB CHEMISTRY METHOD 11/17/2024 7:49 AM [facility] Potassium 3.3(L) 3.5 - 5.5 mmol/L LAB CHEMISTRY METHOD 11/17/2024 7:49 AM [facility] Chloride 107 96 - 110 mmol/L LAB CHEMISTRY METHOD 11/17/2024 7:49 AM [facility] CO2 27 21 - 32 mmol/L LAB CHEMISTRY METHOD 11/17/2024 7:49 AM [facility] Anion Gap 5 3 - 11 LAB CHEMISTRY METHOD 11/17/2024 7:49 AM [facility] Glucose 100 70 - 100 mg/dL LAB CHEMISTRY METHOD 11/17/2024 7:49 AM [facility] BUN 16 5 - 25 mg/dL LAB CHEMISTRY METHOD 11/17/2024 7:49 AM [facility] Creatinine 0.63 0.50 - 1.10 mg/dL LAB CHEMISTRY METHOD 11/17/2024 7:49 AM [facility] eGFR 91 >=60 mL/min/1. 73m2 LAB CHEMISTRY METHOD 11/17/2024 7:49 AM [facility] Comment:Calculation based on the??Chronic Kidney Disease Epidemiology Collaboration (CKD-EPI) equation refit??without adjustment for race. BUN/Creatinine Ratio 25.4 LAB CHEMISTRY METHOD 11/17/2024 7:49 AM [facility] Calcium 8.5 8.5 - 10.5 mg/dL LAB CHEMISTRY METHOD 11/17/2024 7:49 AM [facility] Blood Venous blood specimen / Unknown Venipuncture / Unknown 11/17/2024 6:43 AM EST 11/17/2024 7:12 AM EST us Bhavin Garcia MD LAB BLOOD ORDERABLES Final Re sult [facility] [address] [place] [address], * CT Angio Chest wo and/or w [...] Signed Date: 11/16/2024 10:45 ET Workstation ID: [id number] Transcribed By: Self Edit Transcribed Date: 11/16/2024 10:26 ET Narrative 11/16/2024 10:45 AM EST EXAMINATION: CTA chest with contrast. CLINICAL INDICATION: SOB. Hip fracture. Rule out PE. COMPARISON: Chest x-ray 11/16/2024. TECHNIQUE: 2.5 mm thin axial and reformatted 3 mm thin sagittal and coronal images of chest were obtained following IV 90 mL [id number]. Scanner: [employer] 64 slice VCT Dose reduction technique: ASIR [...] were obtained following IV 90 mL Isovue-[id number].Scanner: [employer] 64 slice VCT Dose reduction technique: ASIR [...] Signed Date: 11/16/2024 10:45 ET Workstation ID: [id number] Transcribed By: Self Edit Transcribed Date: 11/16/2024 10:26 ET Rochelle [facility] [place] CT PROCEDURES Final Resul t * Respiratory virus panel molecular study (11/16/2024 5:44 AM EST) Pathologist [facility] Adenovirus Detection by PCR Not Detected Not Detected LAB MICROBIOLOGY METHOD 11/16/2024 7:[address] [facility] Influenza A PCR Not Detected Not Detected LAB MICROBIOLOGY METHOD 11/16/2024 7:20 AM [facility] Influenza B PCR Not Detected Not Detected LAB MICROBIOLOGY METHOD 11/16/2024 7:20 AM [facility] Coronavirus 229E Not Detected Not Detected LAB MICROBIOLOGY METHOD 11/16/2024 7:20 AM [facility] Coronavirus HKU1 Not Detected Not Detected LAB MICROBIOLOGY METHOD 11/16/2024 7:20 AM [facility] Coronavirus OC43 Not Detected Not Detected LAB MICROBIOLOGY METHOD 11/16/2024 7:20 AM [facility] Coronavirus NL63 Not Detected Not Detected LAB MICROBIOLOGY METHOD 11/16/2024 7:20 AM [facility] Parainfluenza Virus 1 Not Detected Not Detected LAB MICROBIOLOGY METHOD 11/16/2024 7:20 AM [facility] Parainfluenza Virus 2 Not Detected Not Detected LAB MICROBIOLOGY METHOD 11/16/2024 7:20 AM [facility] Parainfluenza Virus 3 Not Detected Not Detected LAB MICROBIOLOGY METHOD 11/16/2024 7:20 AM [facility] Parainfluenza Virus 4 Not Detected Not Detected LAB MICROBIOLOGY METHOD 11/16/2024 7:20 AM [facility] RSV PCR Not Detected Not Detected LAB MICROBIOLOGY METHOD 11/16/2024 7:20 AM [facility] Human Metapneumovirus A and B Not Detected Not Detected LAB MICROBIOLOGY METHOD 11/16/2024 7:20 AM [facility] Rhinovirus/Entero virus Not Detected Not Detected LAB MICROBIOLOGY METHOD 11/16/2024 7:20 AM [facility] Bordetella pertussis Not Detected Not Detected LAB MICROBIOLOGY METHOD 11/16/2024 7:20 AM [facility] Bordetella parapertussis Not Detected Not Detected LAB MICROBIOLOGY METHOD 11/16/2024 7:20 AM [facility] Mycoplasma pneumo by PCR Not Detected Not Detected LAB MICROBIOLOGY METHOD 11/16/2024 7:20 AM [facility] Chlamydia pneumoniae Not Detected Not Detected LAB MICROBIOLOGY METHOD 11/16/2024 7:20 AM [facility] SARS COV-2 Not Detected Not Detected LAB MICROBIOLOGY METHOD 11/16/2024 7:20 AM [facility] Swab Structure of right anterior naris / Unknown Non-blood Collection / Unknown 11/16/2024 5:44 AM EST 11/16/2024 6:27 AM EST [facility] - 11/16/2024 7:20 AM EST Testing was performed using the [employer] Respiratory Pathogen PCR Assay. All results must [...] MICROBIOLOGY - GENERAL OR DERABLES Final Result [facility] [address] [place] [address], * (ABNORMAL) Arterial blood gas (11/16/2024 5:42 AM EST) pH, Arterial 7.47(H) 7.35 - 7.45 pH 11/16/2024 6:05 AM [facility] pCO2, Arterial 32(L) 35 - 45 mmHg 11/16/2024 6:05 AM [facility] pO2, Arterial 56(LL) 80 - 100 mmHg 11/16/2024 6:05 AM [facility] HCO3, Arterial 24.8 22.0 - 26.0 mmol/L 11/16/2024 6:05 AM [facility] O2 Sat, Arterial 89.9(L) 95.0 - 98.0 % 11/16/2024 6:[address] [facility] Base Excess, Arterial 0.1 -2.0 - 2.0 mmol/L 11/16/2024 6:05 AM [facility] Al Test Pass Pass, Unresponsi ve, Line 11/16/2024 6:05 AM [facility] FIO2 21.00 11/16/2024 6:05 AM [facility] Blood Arterial blood specimen / Unknown Arterial Puncture / Unknown 11/16/2024 5:42 AM EST 11/16/2024 5:47 AM EST us Rochelle DANIELS LAB BLOOD ORDERABLES Final Re sult [facility] [address] [place] [address], [place] [phone] * XR Chest 1 View (11/16/2024 4:48 [...] Signed Date: 11/16/2024 07:11 ET Workstation ID: [id number] Transcribed By: Self Edit Transcribed Date: 11/16/2024 [...] Signed Date: 11/16/2024 07:11 ET Workstation ID: [id number] Transcribed By: Self Edit Transcribed Date: 11/16/2024 [...] Signed Date: 11/15/2024 08:30 ET Workstation ID: [id number] Transcribed By: Self Edit Transcribed Date: 11/15/2024 08:25 ET Narrative 11/15/2024 8:30 AM EST Examination: CT brain without contrast. CLINICAL INDICATION: Follow-up subdural hematoma. COMPARISON: CT brain 11/14/2024 at 2:10 PM. TECHNIQUE: Routine 2.5 mm thin axial and reformatted 3 mm thin sagittal and coronal images of brain were obtained. Scanner: [employer] 64 slice VCT Dose reduction technique: ASIR [...] coronal images of brain were obtained. Scanner: [employer] 64 sliceVCT Dose reduction technique: ASIR (Adaptive [...] Signed Date: 11/15/2024 08:30 ET Workstation ID: [id number] Transcribed By: Self Edit Transcribed Date: 11/15/2024 08:25 ET Hardik DANIELS IMG CT PROCEDURES Final Resul t * Vitamin B12 (11/15/2024 6:27 AM EST) [facility] Vitamin B-12 265 250 - 900 pcg/mL LAB CHEMISTRY METHOD 11/15/2024 6:00 PM [facility] Blood Venous blood specimen / Unknown Venipuncture / Unknown 11/15/2024 6:27 AM EST 11/15/2024 7:04 AM EST Bhavin Garcia MD LAB BLOOD ORDERABLES Final Re sult [facility] [address] [place] [address], * (ABNORMAL) CBC auto differential (11/15/2024 6:27 AM EST) [facility] WBC 8.8 4.8 - 10.8 K/[facility] LAB HEMETOLOGY METHOD 11/15/2024 7:22 AM [facility] RBC 3.60(L) 3.80 - 4.80 M/[facility] LAB HEMETOLOGY METHOD 11/15/2024 7:22 AM [facility] Hemoglobin 11.0(L) 11.5 - 16.0 g/dL LAB HEMETOLOGY METHOD 11/15/2024 7:22 AM [facility] Hematocrit 34.2(L) 35.0 - 47.0 % LAB HEMETOLOGY METHOD 11/15/2024 7:22 AM [facility] MCV 95.3 79.0 - 98.0 FL LAB HEMETOLOGY METHOD 11/15/2024 7:22 AM [facility] MCH 30.6 27.0 - 32.0 pcg LAB HEMETOLOGY METHOD 11/15/2024 7:22 AM [facility] MCHC 32.2 32.0 - 37.0 g/dL LAB HEMETOLOGY METHOD 11/15/2024 7:22 AM [facility] RDW 15.2(H) 11.0 - 15.0 % LAB HEMETOLOGY METHOD 11/15/2024 7:22 AM [facility] Platelets 162 130 - 400 K/mcL LAB HEMETOLOGY METHOD 11/15/2024 7:22 AM [facility] MPV 10.8 7.0 - 11.0 FL LAB HEMETOLOGY METHOD 11/15/2024 7:22 AM [facility] NRBC 0.0 <1.0 % LAB HEMETOLOGY METHOD 11/15/2024 7:22 AM [facility] NRBC Absolute 0.00 <0.10 K/mcL LAB HEMETOLOGY METHOD 11/15/2024 7:22 AM [facility] Neutrophils Relative 83.6 % LAB HEMETOLOGY METHOD 11/15/2024 7:22 AM [facility] Lymphocytes Relative 6.8 % LAB HEMETOLOGY METHOD 11/15/2024 7:22 AM [facility] Monocytes Relative 5.8 % LAB HEMETOLOGY METHOD 11/15/2024 7:22 AM [facility] Eosinophils Relative 3.3 % LAB HEMETOLOGY METHOD 11/15/2024 7:22 AM [facility] Basophils Relative 0.2 % LAB HEMETOLOGY METHOD 11/15/2024 7:22 AM [facility] Immature Granulocytes Relative 0.3 % LAB HEMETOLOGY METHOD 11/15/2024 7:[address] [facility] Neutrophils Absolute 7.33(H) 1.50 - 7.00 K/mcL LAB HEMETOLOGY METHOD 11/15/2024 7:[address] [facility] Lymphocytes Absolute 0.60(L) 1.00 - 5.00 K/mcL LAB HEMETOLOGY METHOD 11/15/2024 7:[address] [facility] Monocytes Absolute 0.51 0.20 - 1.00 K/mcL LAB HEMETOLOGY METHOD 11/15/2024 7:[address] [facility] Eosinophils Absolute 0.29 0.00 - 0.50 K/mcL LAB HEMETOLOGY METHOD 11/15/2024 7:22 AM [facility] Basophils Absolute 0.02 0.00 - 0.20 K/mcL LAB HEMETOLOGY METHOD 11/15/2024 7:22 AM [facility] Immature Granulocytes Absolute 0.03 0.00 - 0.03 K/mcL LAB HEMETOLOGY METHOD 11/15/2024 7:[address] [facility] Blood Venous blood specimen / Unknown Venipuncture / Unknown 11/15/2024 6:27 AM EST 11/15/2024 7:05 AM EST us Demarcus Villalobos MD LAB BLOOD ORDERABLES Final Re sult [facility] [address] [place] [address], * Magnesium (11/15/2024 6:27 AM EST) Magnesium 2.0 1.9 - 2.6 mg/dL LAB CHEMISTRY METHOD 11/15/2024 8:[address] [facility] Blood Venous blood specimen / Unknown Venipuncture / Unknown 11/15/2024 6:27 AM EST 11/15/2024 7:04 AM EST us Demarcus Villalobos MD LAB BLOOD ORDERABLES Final Re sult [facility] [address] [place] [address], [place] [phone] * (ABNORMAL) Basic metabolic panel (11/15/2024 6:27 AM EST) Sodium 139 133 - 145 mmol/L LAB CHEMISTRY METHOD 11/15/2024 8:43 AM [facility] Potassium 3.6 3.5 - 5.5 mmol/L LAB CHEMISTRY METHOD 11/15/2024 8:43 AM [facility] Chloride 108 96 - 110 mmol/L LAB CHEMISTRY METHOD 11/15/2024 8:43 AM [facility] CO2 24 21 - 32 mmol/L LAB CHEMISTRY METHOD 11/15/2024 8:43 AM [facility] Anion Gap 7 3 - 11 LAB CHEMISTRY METHOD 11/15/2024 8:43 AM [facility] Glucose 114(H) 70 - 100 mg/dL LAB CHEMISTRY METHOD 11/15/2024 8:43 AM [facility] BUN 22 5 - 25 mg/dL LAB CHEMISTRY METHOD 11/15/2024 8:43 AM [facility] Creatinine 0.77 0.50 - 1.10 mg/dL LAB CHEMISTRY METHOD 11/15/2024 8:43 AM [facility] eGFR 80 >=60 mL/min/1. 73m2 LAB CHEMISTRY METHOD 11/15/2024 8:43 AM [facility] Comment:Calculation based on the??Chronic Kidney Disease Epidemiology Collaboration (CKD-EPI) equation refit??without adjustment for race. BUN/Creatinine Ratio 28.6 LAB CHEMISTRY METHOD 11/15/2024 8:43 AM [facility] Calcium 8.5 8.5 - 10.5 mg/dL LAB CHEMISTRY METHOD 11/15/2024 8:[address] [facility] Blood Venous blood specimen / Unknown Venipuncture / Unknown 11/15/2024 6:27 AM EST 11/15/2024 7:04 AM EST us Demarcus Villalobos MD LAB BLOOD ORDERABLES Final Re sult [facility] [address] [place] [address], [place] [phone] * Activated partial thromboplastin time (11/14/2024 8:37 PM EST) aPTT 32.2 24.1 - 39.3 sec LAB COAGULATION METHOD 11/14/2024 9:[address] [facility] Blood Venous blood specimen / Unknown Venipuncture / Unknown 11/14/2024 8:37 PM EST 11/14/2024 8:49 PM EST us Hardik DANIELS LAB BLOOD ORDERABLES Final Re sult Performing Organization Address City/[facility]/ZIP Co de Phone Number [facility] [address] [place] [address], [place] [phone] * Prothrombin time with INR (11/14/2024 8:37 PM EST) Protime 12.0 10.6 - 13.9 sec LAB COAGULATION METHOD 11/14/2024 9:[address] [facility] INR 1.0 LAB COAGULATION METHOD 11/14/2024 9:[address] [facility] Blood Venous blood specimen / Unknown Venipuncture / Unknown 11/14/2024 8:37 PM EST 11/14/2024 8:49 PM EST us Hardik DANIELS LAB BLOOD ORDERABLES Final Re sult [facility] ([facility]) [facility] [address] [place] [address], * CT Head wo Contrast (11/14/2024 2:27 [...] Signed Date: 11/14/2024 14:51 ET Workstation ID: [id number] Transcribed By: Self Edit Transcribed Date: 11/14/2024 [...] Signed Date: 11/14/2024 14:51 ET Workstation ID: [id number] Transcribed By: Self Edit Transcribed Date: 11/14/2024 14:41 ET Aleida DANIELS IMG CT PROCEDURES Final Resul t * (ABNORMAL) Culture urine (11/14/2024 1:58 PM EST) Culture, Urine >100,000 CFU/mL Escherichia coli ESBL(A) CLINT 11/17/2024 11:51 AM EST [facility] ([facility]) [facility] Comment:THIS ORGANISM IS POS [...] OR DERABLES Final Result Performing Organization Address [facility]/ZIP Co de Phone Number [facility] [address] [place] [address], [place] [phone] * Estrada urine culture tube (11/14/2024 1:58 PM EST) Pathologist [facility] Extra Tube Hold for add-ons. 11/14/2024 4:[address] [facility] Comment:Auto resulted. Urine Urinary bladder structure / Unknown Non-blood Collection / Unknown 11/14/2024 1:58 PM EST 11/14/2024 2:20 PM EST Aleida DANIELS LAB URINE ORDERABLES Final Re sult Performing Organization Address [facility] Co de Phone Number [facility] [address] [place] [address], [place] [phone] * (ABNORMAL) Urinalysis with reflex microscopic and culture (11/14/2024 1:58 PM EST) Pathologist [facility] Specific [place] Urine 1.021 1.003 - 1.030 LAB URINALYSIS - AUTOMATED METHOD 11/14/2024 2:32 PM [facility] pH, Urine 6.0 5.0 - 8.0 pH LAB URINALYSIS - AUTOMATED METHOD 11/14/2024 2:32 PM [facility] Leukocytes, Urine Small(A) Negative LAB URINALYSIS - AUTOMATED METHOD 11/14/2024 2:32 PM [facility] Nitrite, Urine Negative Negative LAB URINALYSIS - AUTOMATED METHOD 11/14/2024 2:32 PM [facility] Protein, Urine 30(A) <=Trace mg/dL LAB URINALYSIS - AUTOMATED METHOD 11/14/2024 2:32 PM [facility] Glucose, Urine Negative Negative mg/dL LAB URINALYSIS - AUTOMATED METHOD 11/14/2024 2:32 PM [facility] Ketones, Urine Trace(A) Negative mg/dL LAB URINALYSIS - AUTOMATED METHOD 11/14/2024 2:32 PM [facility] Urobilinogen , Urine 1.0 0.2 - 1.0 mg/dL LAB URINALYSIS - AUTOMATED METHOD 11/14/2024 2:32 PM [facility] Bilirubin, Urine Negative Negative LAB URINALYSIS - AUTOMATED METHOD 11/14/2024 2:32 PM [facility] Blood, Urine Moderate(A) Negative LAB URINALYSIS - AUTOMATED METHOD 11/14/2024 2:32 PM [facility] RBC, Urine 9.2(H) 0 - 4 /HPF LAB URINALYSIS - AUTOMATED METHOD 11/14/2024 2:32 PM [facility] WBC, Urine 28.1(H) 0 - 4 /HPF LAB URINALYSIS - AUTOMATED METHOD 11/14/2024 2:32 PM [facility] Squamous Epithelial, Urine 37 0 - 60 /LPF LAB URINALYSIS - AUTOMATED METHOD 11/14/2024 2:32 PM [facility] Bacteria, Urine Many(A) Negative /HPF LAB URINALYSIS - AUTOMATED METHOD 11/14/2024 2:32 PM [facility] Hyaline Casts, Urine 0.8 0 - 3 /LPF LAB URINALYSIS - AUTOMATED METHOD 11/14/2024 2:32 PM [facility] Urine Urinary bladder structure / Unknown Non-blood Collection / Unknown 11/14/2024 1:58 PM EST 11/14/2024 2:20 PM EST Aleida DANIELS LAB URINE ORDERABLES Final Re sult [facility] [address] [place] [address], * CT Lower Extremity wo Contrast Left [...] Signed Date: 11/14/2024 12:30 ET Workstation ID: [id number] Transcribed By: Self Edit Transcribed Date: 11/14/2024 [...] Signed Date: 11/14/2024 12:30 ET Workstation ID: [id number] Transcribed By: Self Edit Transcribed Date: 11/14/2024 12:26 ET us Aleida DANIELS IMG CT PROCEDURES Final Resul t * Troponin I high sensitivity (11/14/2024 11:25 AM EST) High Sensitivity Troponin I 10 <=54 ng/L LAB CHEMISTRY METHOD 11/14/2024 12:[address] [facility] Blood Venous blood specimen / Unknown Venipuncture / Unknown 11/14/2024 11:25 AM EST 11/14/2024 11:[address] [facility] - 11/14/2024 12:49 PM EST High levels of biotin in samples may falsely decrease hsTroponin values. ??Use caution when interpreting hsTroponin results in patients taking biotin who exhibit renal impairment (eGFR <60) or in patients taking more than 20 mg/day of biotin. us Aleida DANIELS LAB BLOOD ORDERABLES Final Re sult [facility] [address] [place] [address], [place] [phone] * XR Chest 1 View (11/14/2024 11:03 AM EST) Anatomical Region Laterality Modality Body Radiographic Jalyn ging 11/14/2024 11:0 8 AM EST Impressions 11/14/2024 11:08 AM EST No acute findings. -------- FINAL REPORT -------- Dictated By: Vinayak Austin Dictated Date: 11/14/2024 11:08 ET Assigned Physician: Vinayak Austin Reviewed and Electronically Signed By: Vinayak Austin Signed Date: 11/14/2024 11:08 ET Workstation ID: [id number] Transcribed By: Self Edit Transcribed Date: 11/14/2024 [...] Signed Date: 11/14/2024 11:08 ET Workstation ID: [id number] Transcribed By: Self Edit Transcribed Date: 11/14/2024 11:08 ET us Aleida DANIELS IMG XR PROCEDURES [...] Signed Date: 11/14/2024 11:08 ET Workstation ID: [id number] Transcribed By: Self Edit Transcribed Date: 11/14/2024 [...] Signed Date: 11/14/2024 11:08 ET Workstation ID: [id number] Transcribed By: Self Edit Transcribed Date: 11/14/2024 [...] Signed Date: 11/14/2024 10:36 ET Workstation ID: [id number] Transcribed By: Self Edit Transcribed Date: 11/14/2024 [...] Signed Date: 11/14/2024 10:36 ET Workstation ID: [id number] Transcribed By: Self Edit Transcribed Date: 11/14/2024 10:30 ET Aleida DANIELS IMG CT PROCEDURES Final Resul t * (ABNORMAL) Thyroid stimulating hormone (11/14/2024 9:58 AM EST) TSH 48.69(H) 0.40 - 4.00 mcIU/mL LAB CHEMISTRY METHOD 11/15/2024 6:35 AM EST [facility] Blood Venous blood specimen / Unknown Venipuncture / Unknown 11/14/2024 9:58 AM EST 11/14/2024 10:25 AM EST us Demarcus Villalobos MD LAB BLOOD ORDERABLES Final Re sult [facility] [address] [place] [address], * (ABNORMAL) CBC auto differential (11/14/2024 9:58 AM EST) WBC 11.6(H) 4.8 - 10.8 K/mcL LAB HEMETOLOGY METHOD 11/14/2024 10:[address] [facility] RBC 4.10 3.80 - 4.80 M/mcL LAB HEMETOLOGY METHOD 11/14/2024 10:32 AM [facility] Hemoglobin 12.3 11.5 - 16.0 g/dL LAB HEMETOLOGY METHOD 11/14/2024 10:32 AM [facility] Hematocrit 38.2 35.0 - 47.0 % LAB HEMETOLOGY METHOD 11/14/2024 10:[address] [facility] MCV 94.1 79.0 - 98.0 FL LAB HEMETOLOGY METHOD 11/14/2024 10:32 AM [facility] MCH 30.3 27.0 - 32.0 pcg LAB HEMETOLOGY METHOD 11/14/2024 10:32 AM [facility] MCHC 32.2 32.0 - 37.0 g/dL LAB HEMETOLOGY METHOD 11/14/2024 10:32 AM [facility] RDW 15.2(H) 11.0 - 15.0 % LAB HEMETOLOGY METHOD 11/14/2024 10:32 AM [facility] Platelets 214 130 - 400 K/mcL LAB HEMETOLOGY METHOD 11/14/2024 10:32 AM [facility] MPV 10.4 7.0 - 11.0 FL LAB HEMETOLOGY METHOD 11/14/2024 10:32 AM [facility] NRBC 0.0 <1.0 % LAB HEMETOLOGY METHOD 11/14/2024 10:32 AM [facility] NRBC Absolute 0.00 <0.10 K/mcL LAB HEMETOLOGY METHOD 11/14/2024 10:32 AM [facility] Neutrophils Relative 88.1 % LAB HEMETOLOGY METHOD 11/14/2024 10:32 AM [facility] Lymphocytes Relative 4.8 % LAB HEMETOLOGY METHOD 11/14/2024 10:32 AM [facility] Monocytes Relative 6.4 % LAB HEMETOLOGY METHOD 11/14/2024 10:32 AM [facility] Eosinophils Relative 0.0 % LAB HEMETOLOGY METHOD 11/14/2024 10:32 AM [facility] Basophils Relative 0.1 % LAB HEMETOLOGY METHOD 11/14/2024 10:32 AM [facility] Immature Granulocytes Relative 0.6 % LAB HEMETOLOGY METHOD 11/14/2024 10:32 AM [facility] Neutrophils Absolute 10.24(H) 1.50 - 7.00 K/mcL LAB HEMETOLOGY METHOD 11/14/2024 10:32 AM [facility] Lymphocytes Absolute 0.56(L) 1.00 - 5.00 K/mcL LAB HEMETOLOGY METHOD 11/14/2024 10:32 AM [facility] Monocytes Absolute 0.74 0.20 - 1.00 K/mcL LAB HEMETOLOGY METHOD 11/14/2024 10:32 AM [facility] Eosinophils Absolute 0.00 0.00 - 0.50 K/mcL LAB HEMETOLOGY METHOD 11/14/2024 10:32 AM [facility] Basophils Absolute 0.01 0.00 - 0.20 K/mcL LAB HEMETOLOGY METHOD 11/14/2024 10:32 AM [facility] Immature Granulocytes Absolute 0.07(H) 0.00 - 0.03 K/mcL LAB HEMETOLOGY METHOD 11/14/2024 10:32 AM [facility] Blood Venous blood specimen / Unknown Venipuncture / Unknown 11/14/2024 9:58 AM EST 11/14/2024 10:25 AM EST us Aleida DANIELS LAB BLOOD ORDERABLES Final Re sult [facility] [address] [place] [address], * (ABNORMAL) Comprehensive metabolic panel (11/14/2024 9:58 AM EST) Sodium 137 133 - 145 mmol/L LAB CHEMISTRY METHOD 11/14/2024 11:56 AM [facility] Potassium 3.6 3.5 - 5.5 mmol/L LAB CHEMISTRY METHOD 11/14/2024 11:56 AM [facility] Chloride 107 96 - 110 mmol/L LAB CHEMISTRY METHOD 11/14/2024 11:56 AM [facility] CO2 25 21 - 32 mmol/L LAB CHEMISTRY METHOD 11/14/2024 11:56 AM [facility] Anion Gap 5 3 - 11 LAB CHEMISTRY METHOD 11/14/2024 11:56 AM [facility] Glucose 130(H) 70 - 100 mg/dL LAB CHEMISTRY METHOD 11/14/2024 11:56 AM [facility] BUN 24 5 - 25 mg/dL LAB CHEMISTRY METHOD 11/14/2024 11:56 AM [facility] Creatinine 0.96 0.50 - 1.10 mg/dL LAB CHEMISTRY METHOD 11/14/2024 11:56 AM [facility] eGFR 61 >=60 mL/min/1. 73m2 LAB CHEMISTRY METHOD 11/14/2024 11:56 AM [facility] Comment:Calculation based on the??Chronic Kidney Disease Epidemiology Collaboration (CKD-EPI) equation refit??without adjustment for race. BUN/Creatinine Ratio 25.0 LAB CHEMISTRY METHOD 11/14/2024 11:56 AM [facility] Calcium 8.9 8.5 - 10.5 mg/dL LAB CHEMISTRY METHOD 11/14/2024 11:56 AM [facility] AST (SGOT) 52(H) 10 - 42 unit/L LAB CHEMISTRY METHOD 11/14/2024 11:56 AM [facility] Comment:Results verified by repeat testing ALT (SGPT) 40 10 - 60 unit/L LAB CHEMISTRY METHOD 11/14/2024 11:56 AM [facility] Comment:Results verified by repeat testing Alkaline Phosphatase 81 42 - 121 unit/L LAB CHEMISTRY METHOD 11/14/2024 11:56 AM [facility] Total Protein 6.8 6.0 - 8.0 g/dL LAB CHEMISTRY METHOD 11/14/2024 11:56 AM [facility] Albumin 3.9 3.2 - 5.0 g/dL LAB CHEMISTRY METHOD 11/14/2024 11:56 AM [facility] Total Bilirubin 1.0 0.0 - 1.4 mg/dL LAB CHEMISTRY METHOD 11/14/2024 11:56 AM [facility] Blood Venous blood specimen / Unknown Venipuncture / Unknown 11/14/2024 9:58 AM EST 11/14/2024 10:25 AM EST us Aleida DANIELS LAB BLOOD ORDERABLES Final Re sult [facility] [address] [place] [address], * Troponin I high sensitivity (11/14/2024 9:58 AM EST) [facility] High Sensitivity Troponin I 10 <=54 ng/L LAB CHEMISTRY METHOD 11/14/2024 10:[address] [facility] Blood Venous blood specimen / Unknown Venipuncture / Unknown 11/14/2024 9:58 AM EST 11/14/2024 10:[address] [facility] - 11/14/2024 10:55 AM EST High levels of biotin in samples may falsely decrease hsTroponin values. ??Use caution when interpreting hsTroponin results in patients taking biotin who exhibit renal impairment (eGFR <60) or in patients taking more than 20 mg/day of biotin. us Aleida DANIELS LAB BLOOD ORDERABLES Final Re sult Performing Organization Address [facility]/ZIP Co de Phone Number [facility] [address] [place] [address], [place] [phone] * (ABNORMAL) Creatine kinase (11/14/2024 9:58 AM EST) [facility] Total CK 668(H) 22 - 269 unit/L LAB CHEMISTRY METHOD 11/14/2024 11:[address] [facility] Blood Venous blood specimen / Unknown Venipuncture / Unknown 11/14/2024 9:58 AM EST 11/14/2024 10:25 AM EST us Aleida DANIELS LAB BLOOD ORDERABLES Final Re sult [facility] [address] [place] [address], [place] [phone] * ECG 12 lead (11/14/2024 9:41 AM EST) [facility] Ventricular Rate ECG 80 BPM GEMUSE Atrial Rate 80 BPM GEMUSE P-R Interval 126 ms GEMUSE QRS Duration 80 ms GEMUSE Q-T Interval 430 ms GEMUSE QTc 495 ms GEMUSE R [place] 31 degrees GEMUSE T [place] -53 degrees GEMUSE ECG Interpretation Normal sinus rhythm Nonspecific T wave abnormality Abnormal ECG No previous ECGs available Confirmed by HELADIO SIMMONS ([id number]) on 11/14/2024 5:33:44 PM GEMUSE 11/14/2024 9:41 AM EST 11/14/2024 5:33 PM EST us Román Guzman MD ECG ORDERABLES Final Resul t GEMUSE * IA CRITICAL CARE EACH ADDITIONAL 30 MINUTES, [place] CRITICAL CARE EACH ADDITIONAL 30 MINUTES, [place] CRITICAL CARE EACH ADDITIONAL 30 MINUTES (11/14/2024 [...] yes ?Care discussed with: admitting provider ?? us Román Guzman MD IN CLINIC/BEDSIDE ORDERABLE S Final Result * ECG-Annotated (11/14/2024) us Provider Onbase ECG ORDERABLES Final Result documented in this [...] at 0900 0848 (Given - Provider: Yolanda aCrson RN) 0919 (Not Given - Provider: Joseph [...] Zhu, JAMMIE) 0919 (Given - Provider: Joseph Arita RN)214 (Given - Provider: Bridgett Guevara RN) 100 (Given - Provider: Joseph Arita RN)2100 (Canceled [...] 0919 (Given - Provider: Joseph Arita RN) 100 (Given - Provider: Joseph Arita RN) pantoprazole [...] 2124 (Given - Provider: Amara Zhu RN) 214 [...] RN) 0230 (Given - Provider: Bridgett Guevara, RN)1410 (Given - Provider: Joseph Arita, JAMMIE) [...] Date OXYGEN THERAPY, ADULT 1 11/17/2024 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
[2024-12-08 06:24] LABS: Alanine Aminotransferase 16 U/L (0-31); Albumin Level 3.6 g/dL (3.5-5.0); Alkaline Phosphatase 109 U/L (39-117); Anion Gap 11 (12-20); Aspartate Amino Transferase 20 U/L (5-31); Bilirubin Total 0.5 mg/dL (0.0-1.0); Blood Urea Nitrogen 13 mg/dL (9-16); Calcium 9.5 mg/dL (8.4-10.2); Carbon Dioxide 23 mmol/L (22-29); Chloride 114 mmol/L (96-108); Estimated Glomerular Filt Rate > 60; Glucose Random 74 mg/dL (60-115); Sodium 144 mmol/L (135-145); Total Protein 6.8 g/dL (6.5-8.0)
== END 2024-12-08 06:03 | disposition home or self-care (01) ==
LOC: HO.MMNH1L 06:02
PROVIDERS: Visit Provider Nurse Practitioner
DX: F41.9 Anxiety disorder, unspecified (principal)
CPT/HCPCS: 36415; 80053; 85025

== ENCOUNTER 2025-06-25 06:25 | Outpatient (REF) | payer MEDICARE, SELFPAY ==
--- OUTSIDE RECORDS SUMMARY | 2025-06-25 06:28 | XMS_ITS | Clinical Summary ---
Author Organization [facility] Address [address] [place] [address] Care Team Providers Care In School Suspension Coordinator Name Role Phone Garcia Doran MD Primary Care Provider [phone] Allergies No known active allergies Medications ferrous sulfate 325 mg (65 mg elemental iron) tablet Take by mouth. Active citalopram (CeleXA) 20 mg tablet Please take 1.5 tablet daily 135 tablet 1 09/03/2024 Active melatonin 3 mg tablet Take 1 tablet (3 mg total) by mouth at bedtime. 11/24/2024 Active propranoloL (INDERAL) 20 mg tablet Take 1 tablet (20 mg total) by mouth 1 (one) time each day. 30 each 5 03/06/2025 Active levothyroxine (SYNTHROID, LEVOTHROID) 75 mcg tablet Take 1 tablet daily for 6 days and 2 tablets on 7th day. 96 tablet 1 03/06/2025 Active Active Problems Problem Noted Date Diagnosed Date Subdural hemorrhage followin g injury, no loss of consciousness (CMS/HCC V24, CMS/HCC V28) 11/26/2024 Major depressive disorder, single episode, unspe cified 11/26/2024 Closed fracture of left hip (CMS/HCC V24, CMS/HC C V28) 11/14/2024 Acute subdural hematoma (CMS/HCC V24, CMS/HCC V2 8) 11/14/2024 Assessment & Plan (12/05/2024 12:36 PM [...] has been doing well at rehab, [facility], she has been doing physical therapy, walking [...] Anxiety 06/11/2017 HTN (hypertension) 06/11/2017 Hypothyroidism 06/11/2017 Resolved Problems Problem Noted Date Diagnosed Date Resolved Date Subdural hematoma ([facility] V24, [facility] V28) 5 01/14/2025 Assessment & Plan (01/09/2025 1:45 PM EDT): Ms. Rios is about 2 weeks status at right sided bur hole for evacuation of a chronic subdural hematoma. Since the surgery, she feels like her balance is good and she denies any headaches. She is off of blood thinners. She is pleased with her early postoperative results and I would agree with her. She can follow-up with Dr. Damico on an as-needed basis. Immunizations Name Administration Dates Next Due Influenza [...] Left hip hemiarthroplasty performed by Dr Shaggy JIMENEZ FOR SUBDURAL HEMATOMA 12/30/2024 Right Medical History Medical History Date Comments Hypothyroidism [...] care for your loved ones. For example, attendant child activity or elderly care for an older adult? [...] Safety Answer Date Record ed Physical Abuse 12/30/2024 Verbal Abuse 12/30/2024 Comments No Sex and Gender Information Value Date Recorded Sex Assigned at Female 12/30/2024 6:33 AM EST Legal Sex Female 1:40 PM EDT Gender Identity Female 12/30/2024 6:33 AM EST Sexual Orientation Straight 12/30/2024 6: 33 AM EST Obstetrics History Last Filed Vital Signs Vital Sign Reading Time Taken Comments Blood Pressure 134/69 03/06/2025 11:12 AM EDT Pulse 63 03/06/2025 11:12 AM EDT Temperature 36.8 C (98.2 F) 12/31/2024 8:00 AM EST Respiratory Rate 13 12/31/2024 11:00 AM EST Oxygen Saturation 100% 12/31/2024 11:00 AM EST Inhaled Oxygen Concentration - - Weight 64.6 kg (142 lb 8 oz) 03/06/2025 11:12 AM EDT Height 165.1 cm (5' 5 ) 03/06/2025 11:12 AM EDT Body Mass Index 23.71 03/06/2025 11:12 AM EDT Plan of Treatment Upcoming Encounters Date Type Department Care Team (Late st Contact Info) Description 09/10/2025 11:00 AM EST Office Visit Internal Medicine - [facility] [address] [place] [address] Garcia Doran MD [address] [place] [address] Health Maintenance Due Date Last Done Comments Zoster Vaccines (1 of 2) 1997 RSV Immunization Adult Patients (1 - 1-dose 75+ series) 2022 Medicare Annual Wellness Visit 10/25/2024 10/25/2023 COVID-19 Vaccine ( season) 2025 08/07/2024, 08/16/2023, 11/22/2022, Additional history exists Influenza Vaccine (#1) 2025 , 10/18/2021, 08/05/2020, Additional history exists Colorectal Cancer Screening: FIT-DNA (Cologuard) 11/07/2025 11/07/2022 Social Influencers of Health Screening 11/14/2025 11/14/2024 Falls Risk Assessment 12/30/2025 12/30/2024, 024 Hypertension/CHF/CAD Annual BMP Blood Test 12/31/2025 12/31/2024, 11/26/2024, 11/25/2024, Additional history exists Cholesterol Screening (Lipid Panel) 03/06/2030 03/06/2025, 09/03/2024, 02/28/2024, Additional history exists DTaP,Tdap,and Td Vaccines (3 - Td or Tdap) 08/01/2033 08/01/2023, 02/05/2013 Osteoporosis Screening (Bone Density Screening) 10/04/2033 10/04/2023 Hepatitis C Screening Completed 04/22/2018 Breast Cancer Screening Discontinued 04/10/20 23, 04/04/2022, 03/31/2021 Pneumococcal Vaccine: 50+ Years Completed 08/01/2023, 11/15/2020, 10/03/2011 Depression Screening Completed 02/27/2025, 10/25/20 HIB Vaccines Aged Out No longer eligi [...] age to complete this topic Meningococcal B Vaccine Aged Out No l onger eligible based on patient's age to complete this topic RSV Immunization Patients Under 20 months Aged Out No longer eligible based on patient's age to complete this topic Varicella Vaccines Aged Out No longer eligible based on patient's age to complete this topic Medical Devices Implanted Type Area Test Carrier Device Identifier Shelf Expiration Date Model / Serial / Lot Kit Prep Total Hip Bone Imp - Sna - [id number] Implanted:Qty : 1 on 11/17/2024 by Sami Coon MD at [facility] Bone Cement Left: Hip [employer] 06/24/2034 [id number] / NA / [id number] Cement Bone Surg Simplex Radiopq - Sna - [id number] Implanted:Qty : 1 on 11/17/2024 by Sami Coon MD at [facility] Bone Cement Left: Hip [employer] 12/26/2026 6191-1-0 10 / NA / [id number] Cement Bone Surg Simplex Radiopq - Sna - [id number] Implanted:Qty : 1 on 11/17/2024 by Sami Coon MD at [facility] Bone Cement Left: Hip [employer] 12/26/2026 6191-1-0 10 / NA / [id number] Hip Stem Fem C-Cmnt 132d 6x158 - Sna - [id number] Implanted:Qty : 1 on 11/17/2024 by Sami Coon MD at [facility] Joints Hip Left: Hip [employer] [id number] 09/30/2028 6058-063 7D / NA / [id number] Hip Spacr Distl Univ 9mm - Sna - [id number] Implanted:Qty : 1 on 11/17/2024 by Sami Coon MD at [facility] Joints Hip Left: Hip [employer] [id number] 07/07/2029 1067-000 9 / NA / [id number] Hip Head Bipolar Uhr 19g48rb - Sna - [id number] Implanted:Qty : 1 on 11/17/2024 by Sami Coon MD at [facility] Joints Hip Left: Hip [employer] [id number] 03/11/2028 UH1-49-2 6 / NA / [id number] Hip Head Cocr L Fit 26mm/-3 - Sna - [id number] Implanted:Qty : 1 on 11/17/2024 by Sami Coon MD at [facility] Joints Hip Left: Hip [employer] [id number] 01/10/2028 6260-9-0 / NA / [id number] Powder Surgifoam Absorb Gel - Sna - [id number] Implanted:Qty : 1 on 12/30/2024 by Vicky Damico MD at [facility] [employer] Right: Brain [employer] 10/06/20261977 / NA / [id number] Description:MIXED WITH 10,00 0 UNITS OF THROMBIN Procedures Procedure Name Priority Date/Time Associated Diagnosis Comments LIPID PANEL WITH REFLEX TO DIRECT LDL Routine 03/06/2025 12:17 PM EDT Mixed hyperlipidemia BASIC METABOLIC PANEL Routine 12/31/2024 4:13 AM EST FALLS RISK ASSESSMENT Routine 02/28/2024 DEPRESSION SCREENING [...] Relevant to Health Maintenance Results * (ABNORMAL) Lipid panel with reflex to direct LDL (03/06/2025 12:17 PM EDT) Cholesterol 254(H) 0 - 200 mg/dL LAB CHEMISTRY METHOD 03/06/2025 4:01 PM [facility] Triglycerides 103 0 - 150 mg/dL LAB CHEMISTRY METHOD 03/06/2025 4:01 PM [facility] HDL 81 >=40 mg/dL LAB CHEMISTRY METHOD 03/06/2025 4:01 PM [facility] LDL Calculated 152(H) 0 - 100 mg/dL LAB CHEMISTRY METHOD 03/06/2025 4:01 PM [facility] VLDL Cholesterol Anderson 20.6 mg/dL LAB CHEMISTRY METHOD 03/06/2025 4:01 PM [facility] Non HDL Chol. (LDL+VLDL) 173(H) <145 mg/dL LAB CHEMISTRY METHOD 03/06/2025 4:01 PM [facility] Chol/HDL Ratio 3.1 0.0 - 4.4 LAB CHEMISTRY METHOD 03/06/2025 4:01 PM [facility] Blood Venous blood specimen / Unknown Venipuncture / Unknown 03/06/2025 12:17 PM EDT 03/06/2025 12:17 PM EDT us Garcia Doran MD LAB BLOOD ORDERABLES Final Resu lt [facility] [address] [place] [address], * Basic metabolic panel (12/31/2024 4:13 AM EST) Sodium 140 133 - 145 mmol/L LAB CHEMISTRY METHOD 12/31/2024 5:38 AM [facility] Potassium 4.2 3.5 - 5.5 mmol/L LAB CHEMISTRY METHOD 12/31/2024 5:38 AM [facility] Chloride 110 96 - 110 mmol/L LAB CHEMISTRY METHOD 12/31/2024 5:38 AM [facility] CO2 26 21 - 32 mmol/L LAB CHEMISTRY METHOD 12/31/2024 5:38 AM [facility] Anion Gap 4 3 - 11 LAB CHEMISTRY METHOD 12/31/2024 5:38 AM [facility] Glucose 98 70 - 100 mg/dL LAB CHEMISTRY METHOD 12/31/2024 5:38 AM [facility] BUN 18 5 - 25 mg/dL LAB CHEMISTRY METHOD 12/31/2024 5:38 AM [facility] Creatinine 0.88 0.50 - 1.10 mg/dL LAB CHEMISTRY METHOD 12/31/2024 5:38 AM [facility] eGFR 68 >=60 mL/min/1. 73m2 LAB CHEMISTRY METHOD 12/31/2024 5:38 AM [facility] Comment:Calculation based on the Chronic Kidney Disease Epidemiology Collaboration (CKD-EPI) equation refit without adjustment for race. BUN/Creatinine Ratio 20.5 LAB CHEMISTRY METHOD 12/31/2024 5:38 AM [facility] Calcium 9.1 8.5 - 10.5 mg/dL LAB CHEMISTRY METHOD 12/31/2024 5:38 AM [facility] Blood Venous blood specimen / Unknown Venipuncture / Unknown 12/31/2024 4:13 AM EST 12/31/2024 4:50 AM EST Rashawn Riddle DO LAB BLOOD ORDERABLES Final R esult [facility] [address] [place] [address], * Falls Risk Assessment (02/28/2024) Falls Risk Assessment ABSTRACTED Historical Provider MD HEALTH MAINTENANCE Final Result * Depression Screening (10/25/2023) Pathologist [facility] Depression Screening ABSTRACTED Historical Provider MD HEALTH MAINTENANCE Final Result * DXA BONE DENSITY STUDY 1+ SITS AXIAL SKEL (10/04/2023 4:00 PM EST) Anatomical Region Laterality Modality Bone Densitometr y 12/28/2022 9:43 AM EST Narrative 10/04/2023 9:07 PM EST STUDY: DUAL ENERGY X-RAY ABSORPTIOMETRY / DXA REASON FOR EXAM: Female, 78 years old menopausal/postmenopausal disorder TECHNIQUE: Bone Mineral Density (BMD) measurements of the lumbar spine and left hip were obtained using [employer] W (S/N [id number]). COMPARISON: None FINDINGS: L1-L3-L4 BMD: 0.775 g/cm2 [...] Osteopenia At or below -2.5 SD Osteoporosis Procedure Note Haseeb Rosenberg MD - 12/03/2023 STUDY: DUAL ENERGY X-RAY ABSORPTIOMETRY / DXA REASON FOR EXAM: Female, 78 years old menopausal/postmenopausaldisorder TECHNIQUE: Bone Mineral Density (BMD) measurements of the lumbar spineand left hip were obtained using [employer] W (S/N [id number]). COMPARISON: None FINDINGS: L1-L3-L4 BMD: 0.775 g/cm2 [...] are composed of fatty and fibroglandular tissue. No suspicious mass, architectural distortion or suspicious calcifications [...] (<15%) Garcia Doran MD IMG XR PROCEDURES Final Result * FIT-DNA (Cologuard) (11/07/2022) [facility] Colorectal Cancer Screening: FIT-DNA (Cologuard) no interpretation , abstracted Historical Provider HEALTH MAINTENANCE Final Result * Hepatitis C Screening (04/22/2018) [facility] Hepatitis C Screening ABSTRACTED Historical Provider HEALTH MAINTENANCE Final Result from Last 3 Months or Most Recently Relevant to Health Maintenance Additional Health Concerns Infection Onset Date Last Indicated ESBL 11/14/2024 11/14/2024 Insurance [employer] MEDICARE Advance Directives Documents on File Type Date Recorded Patient [employer] Expl anation Advance Directives and Living Will 11/27/2024 8:18 AM Advance Directives and Living Will 11/17/2024 3:28 PM PROXY Advance Directives and Living Will 11/17/2024 12:33 PM Tucker Rios Health Care Proxy Advance Directives and Living Will 11/17/2024 12:20 PM Health Care Proxy * Full Code - Default (Latest Code Status on File) Date Activated Date Inactivated Comments 12/30/2024 9:47 AM 12/31/2024 1:50 PM This is order is used when code status has not been discussed with the patient, or code status is otherwise unknown/unconfirmed To update the patient's code status, place a code status order. Do not modify or discontinue any currently active code status orders. * Full Code - Default Date Activated Date Inactivated Comments 12/30/2024 7:18 AM 12/30/2024 9:47 AM This is order is used when code status has not been discussed with the patient, or code status is otherwise unknown/unconfirmed To update the patient's code status, place a code status order. Do not modify or discontinue any currently active code status orders. * Full Code - Default Date Activated Date Inactivated Comments 12/30/2024 7:18 AM 12/30/2024 7:18 AM This is order is used when code status has not been discussed with the patient, or code status is otherwise unknown/unconfirmed To update the patient's code status, place a code status order. Do not modify or discontinue any currently active code status orders. * Full Code - Default Date Activated Date Inactivated Comments 11/14/2024 3:14 [...] currently active code status orders. Care Teams In School Suspension Coordinator Relationship Specialty Start Date End Date Garcia Doran MD [address] [place] [id number] PCP - General Internal Medicine 01/11/22
--- OUTSIDE RECORDS SUMMARY | 2025-06-25 06:28 | XMS_ITS | Clinical Summary ---
Author Organization [facility] Address [address] [place] [address] Care Team Providers Care Customer Experience Strategist Name Role Phone Garcia Doran MD Primary Care Provider [phone] Allergies No known active allergies Medications Medication Sig Dispensed Refills Start Date End Date Status Multiple Vitamins-Minerals (Womens Multi Gummies) Chew Tab Take by mouth. 0 Act niall Ferrous Sulfate (Iron) 325 (65 Fe) MG Tab Take by mouth. 0 Active amlodipine (NORVASC) 2.5 MG tablet TAKE 1 TABLET BY MOUTH DAILY 100 Tablet 2 03/14/2024 Active levothyroxine (SYNTHROID, LEVOTHROID) 50 MCG tablet TAKE 1 TABLET BY MOUTH DAILY 100 Tablet 1 03/27/2024 Active citalopram (CELEXA) 20 MG tablet TAKE 1 TABLET BY MOUTH IN THE MORNING 100 Tablet 1 03/27/2024 Active Active Problems Problem Noted Date Osteoporosis 10/11/2023 Whole blood donor 11/11/2019 Hyperlipidemia 09/16/2017 Depression 07/06/2017 Osteopenia 07/06/2017 Hypothyroidism 06/11/2017 HTN (hypertension) 06/11/2017 Anxiety 06/11/2017 Immunizations Name Administration Dates Next Due COVID-19 (Moderna) PT Reported ,08/31/2022,09/16/2021,02/27,01/31/2021 Influenza (> 6 Months) 08/28/2016,2012,07/10/2012,10/03 Influenza Flu (PT Reported) 10/18/2021 Influenza Vaccine-preservati ve Free-quadrivalent 4 Years 11/11/2019,11/08/2018 Influenza Vaccine-quadrivale nt 4 Years Plus 09/12/2017 Influenza vaccine high dose age 65 and over 07/11/2023,08/05/2020 PREVNAR 20 08/01/2023 Pneumoccoccal(Adult) Polysac charide PPSV23 10/03/2011 Pneumococcal Conjugate PCV-13 11/15/2020 TD (STATE SUPPLIED FOR ADULT S AND CHILDREN) 08/01/2023 Tdap 02/05/2013 Family History Medical History Relation Name Comments No Known Problems Aunt No Known Problems Brother Lymphoma Daughter 1 brianna No Known Problems Daughter 2 Hypertension Father No Known Problems Maternal Grandfather No Known Problems Maternal Grandmother Cancer of the Lung Mother No Known Problems Other No Known Problems Paternal Grandfather No Known Problems Paternal Grandmother No Known Problems Sister No Known Problems Uncle Blindness Negative Hx CA Breast Negative Hx Cataract Negative Hx Glaucoma Negative Hx Macular Degeneration Negative Hx Strabismus Negative Hx Relation Name Status Comments Aunt Brother Daughter 1 Alive Daughter 2 Alive Father Maternal Grandfather Maternal Grandmother Mother Other Paternal Grandfather Paternal Grandmother Sister Alive Uncle Social History Tobacco Use Types Packs/Day Years Used Date Smoking Tobacco: Former Cigarettes 0.3 5 Smokeless Tobacco: Never Tobacco Cessation:Counseling Given: Not Answered Alcohol Use Standard Drinks/Week Comments Yes 5 (1 standard drink = 0.6 oz pur e alcohol) Alcohol Habits Answer Date Recorded How often do you have a drin k containing alcohol? 4 or more times a week 10/25/2023 How many drinks containing a lcohol do you have on a typical day when you are drinking? 1 or 2 10/25/2023 How often do you have six or more drinks on one occasion? Never 10/25/2023 Social Isolation Answer Date Recorded In a typical week, how many times do you talk on the phone with family, friends, or neighbors? Three times a week 10/25/2023 How often do you get togethe r with friends or relatives? Once a week 10/25/2023 How often do you attend chur or hinduism services? Never 10/25/2023 Do you belong to any clubs o r organizations such as latter day groups, unions, fraternal or athletic groups, or school groups? Yes 10/25/2023 How often do you attend meet ings of the clubs or organizations you belong to? More than 4 times per year 10/25/2023 Are you now , , , , never or living with a partner? 10/25/2023 Physical Activity Answer Date Recorded On average, how many days pe r week do you engage in moderate to strenuous exercise (like walking fast, running, jogging, dancing, swimming, biking, or other activities that cause a light or heavy sweat)? 7 days 10/25/2023 On average, how many minutes do you engage in exercise at this level? 30 min 10/25/2023 Stress Answer Date Recorded Do you feel stress - tense, restless, nervous, or anxious, or unable to sleep at night because your mind is troubled all the time - these days? Not at all 10/25/2023 Financial Resource Strain Answer Date R ecorded How hard is it for you to pa y for the very basics like food, housing, medical care, and heating? Not hard at all 10/25/2023 Intimate Partner Violence Answer Date R ecorded Within the last year, have y ou been afraid of your partner or ex-partner? No 10/25/2023 Within the last year, have y ou been humiliated or emotionally abused in other ways by your partner or ex-partner? No Within the last year, have y ou been kicked, hit, slapped, or otherwise physically hurt by your partner or ex-partner? No 10/25/2023 Within the last year, have y ou been raped or forced to have any kind of sexual activity by your partner or ex-partner? No 10/25/2023 Food Insecurity Answer Date Recorded Within the past 12 months, y ou worried that your food would run out before you got money to buy more. Never true 10/25/2023 Within the past 12 months, t he food you bought just didn't last and you didn't have money to get more. Never true 10/25/2023 Transportation Needs Answer Date Record ed In the past 12 months, has l ack of transportation kept you from medical appointments or from getting medications? No 09/29 In the past 12 months, has l ack of transportation kept you from meetings, work, or getting things needed for daily living? No 10/25/2023 Housing Stability Answer Date Recorded In the last 12 months, was t here a time when you were not able to pay the mortgage or rent on time? No 10/25/2023 In the last 12 months, how many places have you lived? 1 10/25/2023 In the last 12 months, was t here a time when you did not have a steady place to sleep or slept in a assisted (including now)? No 10/25/2023 Sex Assigned at Date Recorded Not on file Job Start Date Occupation Industry Not on file Not on file Not on file Last Filed Vital Signs Vital Sign Reading Time Taken Comments Blood Pressure 109/72 02/28/2024 8:22 AM EDT Pulse 69 02/28/2024 8:22 AM EDT Temperature 36.7 C (98 F) 07/11/2023 10:58 AM EDT Respiratory Rate 16 06/15/2022 8:38 AM EDT Oxygen Saturation 98% 02/15/2023 1:41 PM EDT Inhaled Oxygen Concentration - - Weight 69.2 kg (152 lb 9.6 oz) 02/28/2024 8:22 A M EDT Height 165.1 cm (5' 5 ) 02/28/2024 8:22 AM EDT Body Mass Index 25.39 02/28/2024 8:22 AM EDT Plan of Treatment Health Maintenance Due Date Last Done Comments SHINGLES VACCINE (1 of 2) 1997 MAMMOGRAM 04/10/2024 04/10/2023, 04/2022, 03/31/2021, Additional history exists Covid-19 Vaccine (2022-2 4 season) 2024 11/22/2022, 08/31/2022, 09/16/2021, Additional history exists DEPRESSION SCREEN 10/25/2024 10/25/2023, (Completed), 06/15/2022, Additional history exists BMI CHECK/ADVISE 10/29/2024 02/28/2024 (Com pleted), 12/28/2022, 12/28/2022 (Completed), Additional history exists FALL RISK ASSESSMENT 02/27/2025 02/28/2024 (Completed), 06/15/2022, 06/15/2022 (Completed) INFLUENZA (#1) 2025 07/11/2023, 12/10/2020, 08/05/2020, Additional history exists BONE DENSITY SCREENING 10/04/2025 , 11/11/2019 (Refused), 08/28/2016 (External Completion) COLON CANCER SCREENING - [place] 08/07/2026 08/07/2023, 07/27/2023, 07/27/2023 CHOLESTEROL SCREENING 02/27/2029 02/28/2024 , 07/11/2023, 12/28/2022, Additional history exists DTAP/TDAP/TD (3 - Td or Tdap) 08/01/2033 08/01/2023, 02/05/2013 HEPATITIS C SCREENING Completed 04/22/2018 PNEUMOCOCCAL VACCINE Completed 08/01/2023, 11/15/2020, 10/03/2011 Care Teams Customer Experience Strategist Relationship Specialty Start Date End Date Garcia Doran MD [address] [place] [id number] PCP - General Internal Medicine 01/11/22
--- OUTSIDE RECORDS SUMMARY | 2025-06-25 06:28 | XMS_ITS | Encounter Summary ---
Author Organization [facility] Address [address] [place] [address] Care Team Providers Care Holter Scanning Technician Name Role Phone Viv Jameson MD Primary Care Provider Magdalene Viv Joseph MD Unavailable Unavailab Darvin Palm PA-C Primary Care Provider Unavail able Garcia Doran MD Primary Care Provider [phone] Encounter Details Date Type Department Care Team Description 06/14/2017 Release of Information Medical Records [address] [place] [id number] Abstract, Provider Social History Tobacco Use Types Packs/Day Years Used Date Smoking Tobacco: Former Cigarettes 0.3 5 Smokeless Tobacco: Never Alcohol Use Standard Drinks/Week Comments Yes 0 (1 standard drink = 0.6 oz pur e alcohol) Occ Alcohol Habits Answer Date Recorded How often [...] week 10/25/2023 How often do you attend [facility] or taoist services? Never 10/25/2023 Do you belong to any clubs o r organizations such as sabianist groups, unions, fraternal or athletic groups, or [...] place to sleep or slept in a jail (including now)? No 10/25/2023 Sex Assigned at Date Recorded Not on file Job Start Date Occupation Industry Not on file Not on file Not on file documented as of this encounter Plan of Treatment Not on file documented as of this encounter Visit Diagnoses Not on filedocumented in this encounter Care Teams Holter Scanning Technician Relationship Specialty Start Date End Date Viv Jameson MD PCP - General Internal Medicine 05/10/17 05/29/21 Darvin Yoo PA-C PCP - General Med/Peds 05/30/21 01/10/22 Garcia Doran MD [address] [place] [address] PCP - General Internal Medicine 01/11/22 Viv Jameson MD Internal Medicine 05/10/17 2 documented as of this encounter
--- OUTSIDE RECORDS SUMMARY | 2025-06-25 06:28 | XMS_ITS | Encounter Summary ---
Author Organization [facility] Address [address] [place] [address] Care Team Providers Care Retail Account Representative Name Role Phone Garcia Doran MD Primary Care Provider [phone] Encounter Details Date Type Department Care Team Description 07/09/2023 Pt. Non Urgent Medical Question Medicine/Pediatrics - [address] [phone] Garcia Doran MD [address] [place] [address] Social History Tobacco Use Types Packs/Day Years [...] week 10/25/2023 How often do you attend formerly [facility] or adventist services? Never 10/25/2023 Do you belong to any clubs o r organizations such as taoist groups, unions, fraternal or athletic groups, or [...] place to sleep or slept in a correction (including now)? No 10/25/2023 Sex Assigned at Date Recorded Not on file Job Start Date Occupation Industry Not on file Not on file Not on file COVID-19 Exposure Response Date Recorded In the last 10 days, have yo u been in contact with someone who was confirmed or suspected to have Coronavirus/COVID-19? No / Unsure 07/11/2023 10:45 AM EDT documented as of this encounter Miscellaneous Notes * Telephone Encounter - Luz Milligan M.A. - 07/09/2023 10:47 AM EDTFrom: Isabela Rios To: Braden Doran Sent: 07/09/2023 10:33 AM EDT Subject: Well Checkup appointment requested I need an appointment so I can have my levothyroxine medication renewed. I use [facility] mail order. Thanking you in advance. Isabela Rios documented in this encounter Plan of Treatment Not on file documented as of this encounter Visit Diagnoses Not on filedocumented in this encounter Care Teams Retail Account Representative Relationship Specialty Start Date End Date Garcia Doran MD [address] [place] [address] PCP - General Internal Medicine 01/11/22 documented as of this encounter
--- OUTSIDE RECORDS SUMMARY | 2025-06-25 06:28 | XMS_ITS | Encounter Summary ---
Author Organization [facility] Address [address] [place] [address] Care Team Providers Care Monogram Technician Name Role Phone Viv Jameson MD Primary Care Provider Magdalene Viv Joseph MD Unavailable Unavailab Darvin Palm PA-C Primary Care Provider Unavail able Garcia Doran MD Primary Care Provider [phone] Encounter Details Date Type Department Care Team Description 09/26/2017 Transfer Records Medical Records [address] [place] [id number] Abstract, Provider Social History Tobacco Use Types [...] week 10/25/2023 How often do you attend [facility] or confucianism services? Never 10/25/2023 Do you belong to any clubs o r organizations such as protestant groups, unions, fraternal or athletic groups, or [...] medical appointments or from getting medications? No 12/2 05/2023 In the past 12 months, has l [...] place to sleep or slept in a fpc (including now)? No 10/25/2023 Sex Assigned at Date Recorded Not on file Job Start Date Occupation Industry Not on file Not on file Not on file documented as of this encounter Plan of Treatment Not on file documented as of this encounter Visit Diagnoses Not on filedocumented in this encounter Care Teams Monogram Technician Relationship Specialty Start Date End Date Viv Jameson MD PCP - General Internal Medicine 05/10/17 05/29/21 Darvin Yoo PA-C PCP - General Med/Peds 05/30/21 01/10/22 Garcia Doran MD [address] [place] [address] PCP - General Internal Medicine 01/11/22 Viv Jameson MD Internal Medicine 05/10/17 2 documented as of this encounter
--- OUTSIDE RECORDS SUMMARY | 2025-06-25 06:28 | XMS_ITS | Encounter Summary ---
Author Organization [facility] Address [address] [place] [address] Care Team Providers Care Digital Color Press Operator Name Role Phone Viv Jameson MD Primary Care Provider Magdalene Viv Joseph MD Unavailable Unavailab Darvin Palm PA-C Primary Care Provider Unavail able Garcia Dorna MD Primary Care Provider [phone] Encounter Details Date Type Department Care Team Description 04/21/2020 Pt. Non Urgent Medic al Question Adult Medicine [address] [address] Viv Jameson MD Social History Tobacco Use Types Packs/Day Years [...] 10/25/2023 How often do you attend formerly [facility] or methodist services? Never 10/25/2023 Do you belong to any clubs o r organizations such as evangelical groups, unions, fraternal or athletic groups, or [...] place to sleep or slept in a half-way (including now)? No 10/25/2023 Sex Assigned at Date Recorded Not on file Job Start Date Occupation Industry Not on file Not on file Not on file documented as of this encounter Progress Notes * Donya Stewart M.A. - 04/21/2020 10:46 AM EDTFrom: Isabela Rios To: Viv Jameson MD Sent: 04/21/2020 10:25 AM EDT Subject: appt for 04/26 at 2:45 Where do I have to go. The office at [place] [employer] or other ? documented in this encounter Plan of Treatment Not on file documented as of this encounter Visit Diagnoses Not on filedocumented in this encounter Care Teams Digital Color Press Operator Relationship Specialty Start Date End Date Viv Jameson MD PCP - General Internal Medicine 05/10/17 05/29/21 Darvin Yoo PA-C PCP - General Med/Peds 05/30/21 01/10/22 Garcia Doran MD [address] [place] [address] PCP - General Internal Medicine 01/11/22 Viv Jameson MD Internal Medicine 05/10/17 2 documented as of this encounter
--- OUTSIDE RECORDS SUMMARY | 2025-06-25 06:28 | XMS_ITS ---
[facility] Care Team Organization Name Specialty Phone Email Start Date End Da regi [facility] NO PCP Primary Care 05/26/2024
--- OUTSIDE RECORDS SUMMARY | 2025-06-25 06:28 | XMS_ITS | Encounter Summary ---
Author Organization [facility] Address [address] [place] [address] Care Team Providers Care Vault Maker Name Role Phone Viv Jameson MD Unavailable Unavailab Darvin Palm PA-C Primary Care Provider Unavail able Garcia Doran MD Primary Care Provider [phone] Encounter Details Date Type Department Care Team Description 10/25/2021 Release of Information Medical Records [address] [place] [id number] Abstract, Provider Social History Tobacco Use Types [...] How often do you attend [facility] or mormon services? Never 10/25/2023 Do you belong to any clubs o r organizations such as adventist groups, unions, fraternal or athletic groups, or [...] place to sleep or slept in a penitentiary (including now)? No 10/25/2023 Sex Assigned at Date Recorded Not on file Job Start Date Occupation Industry Not on file Not on file Not on file documented as of this encounter Plan of Treatment Not on file documented as of this encounter Visit Diagnoses Not on filedocumented in this encounter Care Teams Vault Maker Relationship Specialty Start Date End Date Darvin Yoo PA-C PCP - General Med/Peds 05/30/21 01/10/22 Garcia Doran MD [address] [place] [address] PCP - General Internal Medicine 01/11/22 Viv Jameson MD Internal Medicine 05/10/17 2 documented as of this encounter
--- OUTSIDE RECORDS SUMMARY | 2025-06-25 06:28 | XMS_ITS | Encounter Summary ---
Author Organization [facility] Address [address] [place] [address] Care Team Providers Care Raw Stock Machine Loader Name Role Phone Viv Jameson MD Primary Care Provider Magdalene Viv Joseph MD Unavailable Unavailab Darvin Palm PA-C Primary Care Provider Unavail able Garcia Doran MD Primary Care Provider [phone] Encounter Details Date Type Department Care Team Description 05/13/2019 SCAN Medical Records [address] [place] [address] Abstract, Provider Social History Tobacco Use Types [...] week 10/25/2023 How often do you attend [facility] or restorationist services? Never 10/25/2023 Do you belong to [...] place to sleep or slept in a halfway (including now)? No 10/25/2023 Sex Assigned at Date Recorded Not on file Job Start Date Occupation Industry Not on file Not on file Not on file documented as of this encounter Plan of Treatment Not on file documented as of this encounter Visit Diagnoses Not on filedocumented in this encounter Care Teams Raw Stock Machine Loader Relationship Specialty Start Date End Date Viv Jameson MD PCP - General Internal Medicine 05/10/17 05/29/21 Darvin Yoo PA-C PCP - General Med/Peds 05/30/21 01/10/22 Garcia Doran MD [address] [place] [address] PCP - General Internal Medicine 01/11/22 Viv Jameson MD Internal Medicine 05/10/17 2 documented as of this encounter
[2025-06-25 06:39] LABS: MANUAL DIFF FLAG NO
[2025-06-25 07:01] LABS: Hemoglobin A1C 67.5742 umol/L; Total Hemoglobin (HGBA1C) 2012.3025 umol/L
[2025-06-25 07:05] LABS: Hematocrit 22.5 % (37.0-47.0); Hemoglobin 7.5 g/dl (12.0-16.0); Imm Gran Abs Auto 0.05 X10*3/uL (0.00-0.03); Imm Gran Pct Auto 0.7 % (0.0-0.4); Lymphocytes Absolute Auto 1.3 X10*3/uL (1.2-4.9); Mean Corpuscular HGB Conc 33.3 g/dl (31.0-35.0); Mean Corpuscular Hemoglobin 31.9 pg (27.0-33.0); Mean Corpuscular Volume 95.7 fL (80.0-98.0); NRBC Abs Auto 0.000 X10*3/uL (0.0-0.012); NRBC Pct Auto 0.0 /100WBC (0.0-0.2); Platelet Count 166 X10*3/uL (160-400); Red Blood Count 2.35 X10*6/uL (4.20-5.50); White Blood Count 7.1 X10*3/uL (4.8-10.8)
[2025-06-25 07:07] LABS: Alanine Aminotransferase 7 U/L (0-31); Albumin Level 2.9 g/dL (3.5-5.0); Alkaline Phosphatase 47 U/L (39-117); Anion Gap 9 (12-20); Aspartate Amino Transferase 31 U/L (5-31); Blood Urea Nitrogen 12 mg/dL (9-16); Calcium 7.8 mg/dL (8.4-10.2); Carbon Dioxide 23 mmol/L (22-29); Chloride 115 mmol/L (96-108); Estimated Glomerular Filt Rate > 60; Potassium 3.6 mmol/L (3.3-5.1); Sodium 143 mmol/L (135-145); Total Protein 5.0 g/dL (6.5-8.0)
== END 2025-06-25 06:26 | disposition home or self-care (01) ==
LOC: HO.MMNH2L 06:25
DX: S72.001D Fracture of unspecified part of neck of right femur, subsequent encounter for closed fracture with routine healing (principal); Z13.1 Encounter for screening for diabetes mellitus
CPT/HCPCS: 36415; 80053; 83036; 85025

== ENCOUNTER 2025-06-26 06:02 | Outpatient (REF) | payer MEDICARE, SELFPAY ==
--- OUTSIDE RECORDS SUMMARY | 2025-06-26 06:06 | XMS_ITS | Clinical Summary ---
Author Organization [facility] Address [address] [place] [address] Care Team Providers Care Water And Fire Technician Name Role Phone Garcia Doran MD Primary Care Provider [phone] Allergies No known active allergies Medications ferrous [...] Date Diagnosed Date Resolved Date Subdural hematoma ([facility] V24, [facility] V28) 5 01/14/2025 Assessment & Plan [...] for your loved ones. For example, childcare center director or elderly care for an older [...] AM EST Office Visit Internal Medicine - [facility] [address] [place] [address] Garcia Doran MD [address] [place] [address] Health Maintenance Due Date Last Done Comments [...] this topic Medical Devices Implanted Type Area Rigger Up Device Identifier Shelf Expiration Date Model / Serial / Lot Kit Prep Total Hip Bone Imp - Sna - [id number] Implanted:Qty : 1 on 11/17/2024 by Sami Coon MD at [facility] Bone Cement Left: Hip [employer] 06/24/2034 [id number] / NA / [id number] Cement Bone Surg Simplex Radiopq - Sna - [id number] Implanted:Qty : 1 on 11/17/2024 by Sami Coon MD at [facility] Bone Cement Left: Hip [employer] 12/26/2026 6191-1-0 10 / NA / [id number] Cement Bone Surg Simplex Radiopq - Sna - [id number] Implanted:Qty : 1 on 11/17/2024 by Sami Coon MD at [facility] Bone Cement Left: Hip [employer] 12/26/2026 6191-1-0 10 / NA / [id number] Hip Stem Fem C-Cmnt 132d 6x158 - Sna - [id number] Implanted:Qty : 1 on 11/17/2024 by Sami Coon MD at [facility] Joints Hip Left: Hip [employer] [id number] 09/30/2028 6058-063 7D / NA / [id number] Hip Spacr Distl Univ 9mm - Sna - [id number] Implanted:Qty : 1 on 11/17/2024 by Sami Coon MD at [facility] Joints Hip Left: Hip [employer] [id number] 07/07/2029 1067-000 9 / NA / [id number] Hip Head Bipolar Uhr 73x98wa - Sna - [id number] Implanted:Qty : 1 on 11/17/2024 by Sami Coon MD at [facility] Joints Hip Left: Hip [employer] [id number] 03/11/2028 UH1-49-2 6 / NA / [id number] Hip Head Cocr L Fit 26mm/-3 - Sna - [id number] Implanted:Qty : 1 on 11/17/2024 by Sami Coon MD at [facility] Joints Hip Left: Hip [employer] [id number] 01/10/2028 6260-9-0 / NA / [id number] Powder Surgifoam Absorb Gel - Sna - [id number] Implanted:Qty : 1 on 12/30/2024 by Vicky Damico MD at [facility] [employer] Right: Brain [employer] 10/06/20261977 / NA / [id number] Description:MIXED WITH 10,00 0 UNITS OF THROMBIN [...] mg/dL LAB CHEMISTRY METHOD 03/06/2025 4:01 PM [facility] Triglycerides 103 0 - 150 mg/dL LAB CHEMISTRY METHOD 03/06/2025 4:01 PM [facility] HDL 81 >=40 mg/dL LAB CHEMISTRY METHOD 03/06/2025 4:01 PM [facility] LDL Calculated 152(H) 0 - 100 mg/dL LAB CHEMISTRY METHOD 03/06/2025 4:01 PM [facility] VLDL Cholesterol Anderson 20.6 mg/dL LAB CHEMISTRY METHOD 03/06/2025 4:01 PM [facility] Non HDL Chol. (LDL+VLDL) 173(H) <145 mg/dL LAB CHEMISTRY METHOD 03/06/2025 4:01 PM [facility] Chol/HDL Ratio 3.1 0.0 - 4.4 LAB CHEMISTRY METHOD 03/06/2025 4:01 PM [facility] Blood Venous blood specimen / Unknown Venipuncture / Unknown 03/06/2025 12:17 PM EDT 03/06/2025 12:17 PM EDT us Garcia Doran MD LAB BLOOD ORDERABLES Final Resu lt [facility] [address] [place] [address], * Basic metabolic panel (12/31/2024 4:13 AM EST) Sodium 140 133 - 145 mmol/L LAB CHEMISTRY METHOD 12/31/2024 5:38 AM [facility] Potassium 4.2 3.5 - 5.5 mmol/L LAB CHEMISTRY METHOD 12/31/2024 5:38 AM [facility] Chloride 110 96 - 110 mmol/L LAB CHEMISTRY METHOD 12/31/2024 5:38 AM [facility] CO2 26 21 - 32 mmol/L LAB CHEMISTRY METHOD 12/31/2024 5:38 AM [facility] Anion Gap 4 3 - 11 LAB CHEMISTRY METHOD 12/31/2024 5:38 AM [facility] Glucose 98 70 - 100 mg/dL LAB CHEMISTRY METHOD 12/31/2024 5:38 AM [facility] BUN 18 5 - 25 mg/dL LAB CHEMISTRY METHOD 12/31/2024 5:38 AM [facility] Creatinine 0.88 0.50 - 1.10 mg/dL LAB CHEMISTRY METHOD 12/31/2024 5:38 AM [facility] eGFR 68 >=60 mL/min/1. 73m2 LAB CHEMISTRY METHOD 12/31/2024 5:38 AM [facility] Comment:Calculation based on the Chronic Kidney Disease Epidemiology Collaboration (CKD-EPI) equation refit without adjustment for race. BUN/Creatinine Ratio 20.5 LAB CHEMISTRY METHOD 12/31/2024 5:38 AM [facility] Calcium 9.1 8.5 - 10.5 mg/dL LAB CHEMISTRY METHOD 12/31/2024 5:38 AM [facility] Blood Venous blood specimen / Unknown Venipuncture / Unknown 12/31/2024 4:13 AM EST 12/31/2024 4:50 AM EST Rashawn Riddle DO LAB BLOOD ORDERABLES Final R esult [facility] [address] [place] [address], * Falls Risk Assessment (02/28/2024) Falls Risk Assessment ABSTRACTED Historical Provider MD HEALTH MAINTENANCE Final Result * Depression Screening (10/25/2023) Pathologist [facility] Depression Screening ABSTRACTED Historical Provider MD HEALTH [...] spine and left hip were obtained using [employer] Discovery W (S/N 49730). COMPARISON: None FINDINGS: L1-L3-L4 BMD: 0.775 g/cm2 [...] lumbar spineand left hip were obtained using [employer] W (S/N 36039). 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 Care Teams Water And Fire Technician Relationship Specialty Start Date End Date Garcia Doran MD [address] [place] [address] PCP - General Internal Medicine 01/11/22
[2025-06-26 06:13] LABS: MANUAL DIFF FLAG NO
[2025-06-26 06:58] LABS: Hematocrit 22.3 % (37.0-47.0); Hemoglobin 7.4 g/dl (12.0-16.0); Imm Gran Abs Auto 0.05 X10*3/uL (0.00-0.03); Imm Gran Pct Auto 0.8 % (0.0-0.4); Lymphocytes Absolute Auto 1.2 X10*3/uL (1.2-4.9); Mean Corpuscular HGB Conc 33.2 g/dl (31.0-35.0); Mean Corpuscular Hemoglobin 31.9 pg (27.0-33.0); Mean Corpuscular Volume 96.1 fL (80.0-98.0); NRBC Abs Auto 0.040 X10*3/uL (0.0-0.012); NRBC Pct Auto 0.6 /100WBC (0.0-0.2); Platelet Count 194 X10*3/uL (160-400); Red Blood Count 2.32 X10*6/uL (4.20-5.50); White Blood Count 6.5 X10*3/uL (4.8-10.8)
== END 2025-06-26 06:03 | disposition home or self-care (01) ==
LOC: HO.MMNH2L 06:02
PROVIDERS: Visit Provider Physician Assistant Medical
DX: D50.9 Iron deficiency anemia, unspecified (principal)
CPT/HCPCS: 36415; 85025

== ENCOUNTER 2025-06-30 06:16 | Outpatient (REF) | payer MEDICARE, SELFPAY ==
[2025-06-30 06:09] LABS: MANUAL DIFF FLAG NO
[2025-06-30 06:19] LABS: Hematocrit 28.1 % (37.0-47.0); Hemoglobin 9.1 g/dl (12.0-16.0); Imm Gran Abs Auto 0.08 X10*3/uL (0.00-0.03); Imm Gran Pct Auto 1.3 % (0.0-0.4); Lymphocytes Absolute Auto 1.2 X10*3/uL (1.2-4.9); Mean Corpuscular HGB Conc 32.4 g/dl (31.0-35.0); Mean Corpuscular Hemoglobin 31.7 pg (27.0-33.0); Mean Corpuscular Volume 97.9 fL (80.0-98.0); NRBC Abs Auto 0.000 X10*3/uL (0.0-0.012); NRBC Pct Auto 0.0 /100WBC (0.0-0.2); Platelet Count 324 X10*3/uL (160-400); Red Blood Count 2.87 X10*6/uL (4.20-5.50); White Blood Count 6.3 X10*3/uL (4.8-10.8)
--- OUTSIDE RECORDS SUMMARY | 2025-06-30 06:21 | XMS_ITS | Clinical Summary ---
Author Organization [facility] Address [address] [place] [address] Care Team Providers Care Customer Service Receptionist Name Role Phone Garcia Doran MD Primary Care Provider [phone] Allergies No known active allergies Medications ferrous [...] Date Diagnosed Date Resolved Date Subdural hematoma ([facility] V24, [facility] V28) 5 01/14/2025 Assessment & Plan (01/09/2025 [...] for your loved ones. For example, children's zoo caretaker or elderly care for an older adult? [...] AM EST Office Visit Internal Medicine - [place] [address] [place] [address] Garcia Doran MD [address] [place] [address] Health Maintenance Due Date Last Done Comments [...] this topic Medical Devices Implanted Type Area Genetic Counselor Device Identifier Shelf Expiration Date Model / Serial / Lot Kit Prep Total Hip Bone Imp - Sna - [id number] Implanted:Qty : 1 on 11/17/2024 by Sami Coon MD at [facility] Bone Cement Left: Hip [employer] 06/24/2034 [id number] / NA / [id number] Cement Bone Surg Simplex Radiopq - Sna - [id number] Implanted:Qty : 1 on 11/17/2024 by Sami Coon MD at [facility] Bone Cement Left: Hip [employer] 12/26/2026 6191-1-0 10 / NA / [id number] Cement Bone Surg Simplex Radiopq - Sna - [id number] Implanted:Qty : 1 on 11/17/2024 by Sami Coon MD at [facility] Bone Cement Left: Hip [employer] 12/26/2026 6191-1-0 10 / NA / [id number] Hip Stem Fem C-Cmnt 132d 6x158 - Sna - [id number] Implanted:Qty : 1 on 11/17/2024 by Sami Coon MD at [facility] Joints Hip Left: Hip [employer] [id number] 09/30/2028 6058-063 7D / NA / [id number] Hip Spacr Distl Univ 9mm - Sna - [id number] Implanted:Qty : 1 on 11/17/2024 by Sami Coon MD at [facility] Joints Hip Left: Hip [employer] [id number] 07/07/2029 1067-000 9 / NA / [id number] Hip Head Bipolar Uhr 14a54zf - Sna - [id number] Implanted:Qty : 1 on 11/17/2024 by Sami Coon MD at [facility] Joints Hip Left: Hip [employer] [id number] 03/11/2028 UH1-49-2 6 / NA / [id number] Hip Head Cocr L Fit 26mm/-3 - Sna - [id number] Implanted:Qty : 1 on 11/17/2024 by Sami Coon MD at [facility] Joints Hip Left: Hip [employer] [id number] 01/10/2028 6260-9-0 / NA / [id number] Powder [employer] Absorb Gel - Sna - [id number] Implanted:Qty : 1 on 12/30/2024 by Vicky Damico MD at [facility] [employer] Right: Brain [employer] 10/06/20261977 / NA / [id number] Description:MIXED WITH 10,00 0 UNITS OF THROMBIN [...] mg/dL LAB CHEMISTRY METHOD 03/06/2025 4:01 PM [facility] Triglycerides 103 0 - 150 mg/dL LAB CHEMISTRY METHOD 03/06/2025 4:01 PM [facility] HDL 81 >=40 mg/dL LAB CHEMISTRY METHOD 03/06/2025 4:01 PM [facility] LDL Calculated 152(H) 0 - 100 mg/dL LAB CHEMISTRY METHOD 03/06/2025 4:01 PM [facility] VLDL Cholesterol Anderson 20.6 mg/dL LAB CHEMISTRY METHOD 03/06/2025 4:01 PM [facility] Non HDL Chol. (LDL+VLDL) 173(H) <145 mg/dL LAB CHEMISTRY METHOD 03/06/2025 4:01 PM [facility] Chol/HDL Ratio 3.1 0.0 - 4.4 LAB CHEMISTRY METHOD 03/06/2025 4:01 PM [facility] Blood Venous blood specimen / Unknown Venipuncture / Unknown 03/06/2025 12:17 PM EDT 03/06/2025 12:17 PM EDT us Garcia Doran MD LAB BLOOD ORDERABLES Final Resu lt [facility] [address] [place] [address], * Basic metabolic panel (12/31/2024 4:13 AM EST) Sodium 140 133 - 145 mmol/L LAB CHEMISTRY METHOD 12/31/2024 5:38 AM [facility] Potassium 4.2 3.5 - 5.5 mmol/L LAB CHEMISTRY METHOD 12/31/2024 5:38 AM [facility] Chloride 110 96 - 110 mmol/L LAB CHEMISTRY METHOD 12/31/2024 5:38 AM [facility] CO2 26 21 - 32 mmol/L LAB CHEMISTRY METHOD 12/31/2024 5:38 AM [facility] Anion Gap 4 3 - 11 LAB CHEMISTRY METHOD 12/31/2024 5:38 AM [facility] Glucose 98 70 - 100 mg/dL LAB CHEMISTRY METHOD 12/31/2024 5:38 AM [facility] BUN 18 5 - 25 mg/dL LAB CHEMISTRY METHOD 12/31/2024 5:38 AM [facility] Creatinine 0.88 0.50 - 1.10 mg/dL LAB CHEMISTRY METHOD 12/31/2024 5:38 AM [facility] eGFR 68 >=60 mL/min/1. 73m2 LAB CHEMISTRY METHOD 12/31/2024 5:38 AM [facility] Comment:Calculation based on the Chronic Kidney Disease Epidemiology Collaboration (CKD-EPI) equation refit without adjustment for race. BUN/Creatinine Ratio 20.5 LAB CHEMISTRY METHOD 12/31/2024 5:38 AM [facility] Calcium 9.1 8.5 - 10.5 mg/dL LAB CHEMISTRY METHOD 12/31/2024 5:38 AM [facility] Blood Venous blood specimen / Unknown Venipuncture / Unknown 12/31/2024 4:13 AM EST 12/31/2024 4:50 AM EST Rashawn Riddle DO LAB BLOOD ORDERABLES Final R esult [facility] [address] [place] [address], * Falls Risk Assessment (02/28/2024) Falls Risk Assessment ABSTRACTED Historical Provider MD HEALTH MAINTENANCE Final Result * Depression Screening (10/25/2023) Pathologist [facility] Depression Screening ABSTRACTED Historical Provider MD [...] spine and left hip were obtained using [employer] W (S/N [id number]). COMPARISON: None FINDINGS: L1-L3-L4 BMD: 0.775 g/cm2 [...] lumbar spineand left hip were obtained using [employer] W (S/N [id number]). 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 Care Teams Customer Service Receptionist Relationship Specialty Start Date End Date Garcia Doran MD [address] [place] [address] PCP - General Internal Medicine 01/11/22
[2025-06-30 06:46] LABS: Anion Gap 12 (12-20); Blood Urea Nitrogen 18 mg/dL (9-16); Calcium 8.7 mg/dL (8.4-10.2); Carbon Dioxide 24 mmol/L (22-29); Chloride 111 mmol/L (96-108); Estimated Glomerular Filt Rate > 60; Potassium 4.0 mmol/L (3.3-5.1); Sodium 143 mmol/L (135-145)
== END 2025-06-30 06:17 | disposition home or self-care (01) ==
LOC: HO.MMNH2L 06:16
DX: S72.001D Fracture of unspecified part of neck of right femur, subsequent encounter for closed fracture with routine healing (principal)
CPT/HCPCS: 36415; 80048; 85025

== ENCOUNTER 2025-07-06 06:01 | Outpatient (REF) | payer MEDICARE, SELFPAY ==
[2025-07-06 05:57] LABS: MANUAL DIFF FLAG NO
--- OUTSIDE RECORDS SUMMARY | 2025-07-06 06:06 | XMS_ITS | Clinical Summary ---
Author Organization [facility] [place] Address [address] [place] [address] Care Team Providers Care Splunk Dashboard Developer Name Role Phone Garcia Doran MD Primary Care Provider [phone] Allergies No known active allergies Medications ferrous [...] Date Diagnosed Date Resolved Date Subdural hematoma ([facility] V24, [facility] V28) 5 01/14/2025 Assessment & Plan [...] for your loved ones. For example, children's institution attendant or elderly care for an older adult? [...] AM EST Office Visit Internal Medicine - [facility] [address] [place] [address] Garcia Doran MD [address] [place] [address] Health Maintenance Due Date Last Done Comments [...] this topic Medical Devices Implanted Type Area Web Marketing Assistant Device Identifier Shelf Expiration Date Model / Serial / Lot Kit Prep Total Hip Bone Imp - Sna - [id number] Implanted:Qty : 1 on 11/17/2024 by Sami Coon MD at [facility] Bone Cement Left: Hip [employer] 06/24/2034 [id number] / NA / [id number] Cement Bone Surg Simplex Radiopq - Sna - [id number] Implanted:Qty : 1 on 11/17/2024 by Sami Coon MD at [facility] Bone Cement Left: Hip [employer] 12/26/2026 6191-1-0 10 / NA / [id number] Cement Bone Surg Simplex Radiopq - Sna - [id number] Implanted:Qty : 1 on 11/17/2024 by Sami Coon MD at [facility] Bone Cement Left: Hip [employer] 12/26/2026 6191-1-0 10 / NA / [id number] Hip Stem Fem C-Cmnt 132d 6x158 - Sna - [id number] Implanted:Qty : 1 on 11/17/2024 by Sami Coon MD at [facility] Joints Hip Left: Hip [employer] [id number] 09/30/2028 6058-063 7D / NA / [id number] Hip Spacr Distl Univ 9mm - Sna - [id number] Implanted:Qty : 1 on 11/17/2024 by Sami Coon MD at [facility] Joints Hip Left: Hip [employer] [id number] 07/07/2029 1067-000 9 / NA / [id number] Hip Head Bipolar Uhr 03x58yj - Sna - [id number] Implanted:Qty : 1 on 11/17/2024 by Sami Coon MD at [facility] Joints Hip Left: Hip [employer] [id number] 03/11/2028 UH1-49-2 6 / NA / [id number] Hip Head Cocr L Fit 26mm/-3 - Sna - [id number] Implanted:Qty : 1 on 11/17/2024 by Sami Coon MD at [facility] Joints Hip Left: Hip [employer] [id number] 01/10/2028 6260-9-0 / NA / [id number] Powder Surg[employer] Absorb Gel - Sna - [id number] Implanted:Qty : 1 on 12/30/2024 by Vicky Damico MD at [facility] [employer] Right: Brain [employer] 10/06/20261977 / NA / [id number] Description:MIXED WITH 10,00 0 UNITS OF THROMBIN [...] mg/dL LAB CHEMISTRY METHOD 03/06/2025 4:01 PM [facility] Triglycerides 103 0 - 150 mg/dL LAB CHEMISTRY METHOD 03/06/2025 4:01 PM [facility] HDL 81 >=40 mg/dL LAB CHEMISTRY METHOD 03/06/2025 4:01 PM [facility] LDL Calculated 152(H) 0 - 100 mg/dL LAB CHEMISTRY METHOD 03/06/2025 4:01 PM [facility] VLDL Cholesterol Anderson 20.6 mg/dL LAB CHEMISTRY METHOD 03/06/2025 4:01 PM [facility] Non HDL Chol. (LDL+VLDL) 173(H) <145 mg/dL LAB CHEMISTRY METHOD 03/06/2025 4:01 PM [facility] Chol/HDL Ratio 3.1 0.0 - 4.4 LAB CHEMISTRY METHOD 03/06/2025 4:01 PM [facility] Blood Venous blood specimen / Unknown Venipuncture / Unknown 03/06/2025 12:17 PM EDT 03/06/2025 12:17 PM EDT us Garcia Doran MD LAB BLOOD ORDERABLES Final Resu lt [facility] [address] [place] [address], * Basic metabolic panel (12/31/2024 4:13 AM EST) Sodium 140 133 - 145 mmol/L LAB CHEMISTRY METHOD 12/31/2024 5:38 AM [facility] Potassium 4.2 3.5 - 5.5 mmol/L LAB CHEMISTRY METHOD 12/31/2024 5:38 AM [facility] Chloride 110 96 - 110 mmol/L LAB CHEMISTRY METHOD 12/31/2024 5:38 AM [facility] CO2 26 21 - 32 mmol/L LAB CHEMISTRY METHOD 12/31/2024 5:38 AM [facility] Anion Gap 4 3 - 11 LAB CHEMISTRY METHOD 12/31/2024 5:38 AM [facility] Glucose 98 70 - 100 mg/dL LAB CHEMISTRY METHOD 12/31/2024 5:38 AM [facility] BUN 18 5 - 25 mg/dL LAB CHEMISTRY METHOD 12/31/2024 5:38 AM [facility] Creatinine 0.88 0.50 - 1.10 mg/dL LAB CHEMISTRY METHOD 12/31/2024 5:38 AM [facility] eGFR 68 >=60 mL/min/1. 73m2 LAB CHEMISTRY METHOD 12/31/2024 5:38 AM [facility] Comment:Calculation based on the Chronic Kidney Disease Epidemiology Collaboration (CKD-EPI) equation refit without adjustment for race. BUN/Creatinine Ratio 20.5 LAB CHEMISTRY METHOD 12/31/2024 5:38 AM [facility] Calcium 9.1 8.5 - 10.5 mg/dL LAB CHEMISTRY METHOD 12/31/2024 5:38 AM [facility] Blood Venous blood specimen / Unknown Venipuncture / Unknown 12/31/2024 4:13 AM EST 12/31/2024 4:50 AM EST Rashawn Riddle DO LAB BLOOD ORDERABLES Final R esult [facility] [address] [place] [address], * Falls Risk Assessment (02/28/2024) Falls Risk Assessment ABSTRACTED Historical Provider MD HEALTH MAINTENANCE Final Result * Depression Screening (10/25/2023) Pathologist [facility] Depression Screening ABSTRACTED Historical Provider MD [...] spine and left hip were obtained using [employer] Discovery W (S/N [id number]). COMPARISON: None FINDINGS: L1-L3-L4 BMD: 0.775 g/cm2 [...] lumbar spineand left hip were obtained using [employer] W (S/N [id number]). COMPARISON: None FINDINGS: L1-L3-L4 BMD: 0.775 g/cm2 [...] PROCEDURES Final Result * FIT-DNA (Cologuard) (11/07/2022) [facility] Colorectal Cancer Screening: FIT-DNA (Cologuard) no interpretation , abstracted Historical Provider HEALTH MAINTENANCE Final Result * Hepatitis C Screening (04/22/2018) 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 Care Teams Splunk Dashboard Developer Relationship Specialty Start Date End Date Garcia Doran MD [address] [place] [phone] PCP - General Internal Medicine 01/11/22
[2025-07-06 06:52] LABS: Hematocrit 29.0 % (37.0-47.0); Hemoglobin 9.3 g/dl (12.0-16.0); Imm Gran Abs Auto 0.03 X10*3/uL (0.00-0.03); Imm Gran Pct Auto 0.5 % (0.0-0.4); Lymphocytes Absolute Auto 1.4 X10*3/uL (1.2-4.9); Mean Corpuscular HGB Conc 32.1 g/dl (31.0-35.0); Mean Corpuscular Hemoglobin 32.2 pg (27.0-33.0); Mean Corpuscular Volume 100.3 fL (80.0-98.0); NRBC Abs Auto 0.000 X10*3/uL (0.0-0.012); NRBC Pct Auto 0.0 /100WBC (0.0-0.2); Platelet Count 401 X10*3/uL (160-400); Red Blood Count 2.89 X10*6/uL (4.20-5.50); White Blood Count 6.3 X10*3/uL (4.8-10.8)
[2025-07-06 06:59] LABS: Anion Gap 11 (12-20); Blood Urea Nitrogen 26 mg/dL (9-16); Calcium 9.3 mg/dL (8.4-10.2); Carbon Dioxide 26 mmol/L (22-29); Chloride 111 mmol/L (96-108); Estimated Glomerular Filt Rate > 60; Potassium 4.4 mmol/L (3.3-5.1); Sodium 144 mmol/L (135-145)
== END 2025-07-06 06:02 | disposition home or self-care (01) ==
LOC: HO.MMNH2L 06:01
PROVIDERS: Visit Provider Physician Assistant Medical
DX: S72.001A Fracture of unspecified part of neck of right femur, initial encounter for closed fracture (principal); Z98.890 Other specified postprocedural states
CPT/HCPCS: 36415; 80048; 85025

== ENCOUNTER 2025-07-13 05:46 | Outpatient (REF) | payer MEDICARE, SELFPAY ==
[2025-07-13 05:41] LABS: MANUAL DIFF FLAG NO
--- OUTSIDE RECORDS SUMMARY | 2025-07-13 05:53 | XMS_ITS | Clinical Summary ---
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 For example, childhood development teacher or elderly care for an older adult? [...] AM EST Office Visit Internal Medicine - [facility] [address] [place] [address] Garcia Doran MD [address] [place] [address] Health Maintenance Due Date Last Done Comments [...] this topic Medical Devices Implanted Type Area Skid Wrapper Device Identifier Shelf Expiration Date Model / Serial / Lot Kit Prep Total Hip Bone Imp - Sna - [id number] Implanted:Qty : 1 on 11/17/2024 by Sami Coon MD at [facility] Bone Cement Left: Hip [employer] 06/24/2034 [id number] / NA / [id number] Cement Bone Surg Simplex Radiopq - Sna - [id number] Implanted:Qty : 1 on 11/17/2024 by Sami Coon MD at [facility] Bone Cement Left: Hip [employer] 12/26/2026 6191-1-0 10 / NA / [id number] Cement Bone Surg Simplex Radiopq - Sna - [id number] Implanted:Qty : 1 on 11/17/2024 by Sami Coon MD at [facility] Bone Cement Left: Hip [employer] 12/26/2026 6191-1-0 10 / NA / [id number] Hip Stem Fem C-Cmnt 132d 6x158 - Sna - [id number] Implanted:Qty : 1 on 11/17/2024 by Sami Coon MD at [facility] Joints Hip Left: Hip [employer] [id number] 09/30/2028 6058-063 7D / NA / [id number] Hip Spacr Distl Univ 9mm - Sna - [id number] Implanted:Qty : 1 on 11/17/2024 by Sami Coon MD at [facility] Joints Hip Left: Hip [employer] [id number] 07/07/2029 1067-000 9 / NA / [id number] Hip Head Bipolar Uhr 01m33fd - Sna - [id number] Implanted:Qty : 1 on 11/17/2024 by Sami Coon MD at [facility] Joints Hip Left: Hip [employer] [id number] 03/11/2028 UH1-49-2 6 / NA / [id number] Hip Head Cocr L Fit 26mm/-3 - Sna - [id number] Implanted:Qty : 1 on 11/17/2024 by Sami Coon MD at [facility] Joints Hip Left: Hip [employer] [id number] 01/10/2028 6260-9-0 / NA / [id number] Powder [employer] Absorb Gel - Sna - [id number] Implanted:Qty : 1 on 12/30/2024 by Vicky Damico MD at [facility] [employer] Right: Brain [employer] 10/06/20261977 / NA / [id number] Description:MIXED WITH 10,00 0 UNITS OF THROMBIN [...] mg/dL LAB CHEMISTRY METHOD 03/06/2025 4:01 PM [facility] Triglycerides 103 0 - 150 mg/dL LAB CHEMISTRY METHOD 03/06/2025 4:01 PM [facility] HDL 81 >=40 mg/dL LAB CHEMISTRY METHOD 03/06/2025 4:01 PM [facility] LDL Calculated 152(H) 0 - 100 mg/dL LAB CHEMISTRY METHOD 03/06/2025 4:01 PM [facility] VLDL Cholesterol Anderson 20.6 mg/dL LAB CHEMISTRY METHOD 03/06/2025 4:01 PM [facility] Non HDL Chol. (LDL+VLDL) 173(H) <145 mg/dL LAB CHEMISTRY METHOD 03/06/2025 4:01 PM [facility] Chol/HDL Ratio 3.1 0.0 - 4.4 LAB CHEMISTRY METHOD 03/06/2025 4:01 PM [facility] Blood Venous blood specimen / Unknown Venipuncture / Unknown 03/06/2025 12:17 PM EDT 03/06/2025 12:17 PM EDT us Garcia Doran MD LAB BLOOD ORDERABLES Final Resu lt [facility] [address] [place] [address], * Basic metabolic panel (12/31/2024 4:13 AM EST) Sodium 140 133 - 145 mmol/L LAB CHEMISTRY METHOD 12/31/2024 5:38 AM [facility] Potassium 4.2 3.5 - 5.5 mmol/L LAB CHEMISTRY METHOD 12/31/2024 5:38 AM [facility] Chloride 110 96 - 110 mmol/L LAB CHEMISTRY METHOD 12/31/2024 5:38 AM [facility] CO2 26 21 - 32 mmol/L LAB CHEMISTRY METHOD 12/31/2024 5:38 AM [facility] Anion Gap 4 3 - 11 LAB CHEMISTRY METHOD 12/31/2024 5:38 AM [facility] Glucose 98 70 - 100 mg/dL LAB CHEMISTRY METHOD 12/31/2024 5:38 AM [facility] BUN 18 5 - 25 mg/dL LAB CHEMISTRY METHOD 12/31/2024 5:38 AM [facility] Creatinine 0.88 0.50 - 1.10 mg/dL LAB CHEMISTRY METHOD 12/31/2024 5:38 AM [facility] eGFR 68 >=60 mL/min/1. 73m2 LAB CHEMISTRY METHOD 12/31/2024 5:38 AM [facility] Comment:Calculation based on the Chronic Kidney Disease Epidemiology Collaboration (CKD-EPI) equation refit without adjustment for race. BUN/Creatinine Ratio 20.5 LAB CHEMISTRY METHOD 12/31/2024 5:38 AM [facility] Calcium 9.1 8.5 - 10.5 mg/dL LAB CHEMISTRY METHOD 12/31/2024 5:38 AM [facility] Blood Venous blood specimen / Unknown Venipuncture / Unknown 12/31/2024 4:13 AM EST 12/31/2024 4:50 AM EST Rashawn Riddle DO LAB BLOOD ORDERABLES Final R esult [facility] [address] [place] [address], * Falls Risk Assessment (02/28/2024) Falls Risk Assessment ABSTRACTED Historical Provider MD HEALTH MAINTENANCE Final Result * Depression Screening (10/25/2023) Pathologist [facility] Depression Screening ABSTRACTED Historical Provider MD HEALTH [...] spine and left hip were obtained using [employer] W (S/N [id number]). COMPARISON: None FINDINGS: L1-L3-L4 BMD: 0.775 g/cm2 [...] lumbar spineand left hip were obtained using [employer] W (S/N 29956). 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
[2025-07-13 06:27] LABS: Hematocrit 29.0 % (37.0-47.0); Hemoglobin 9.3 g/dl (12.0-16.0); Imm Gran Abs Auto 0.01 X10*3/uL (0.00-0.03); Imm Gran Pct Auto 0.2 % (0.0-0.4); Lymphocytes Absolute Auto 1.2 X10*3/uL (1.2-4.9); Mean Corpuscular HGB Conc 32.1 g/dl (31.0-35.0); Mean Corpuscular Hemoglobin 32.3 pg (27.0-33.0); Mean Corpuscular Volume 100.7 fL (80.0-98.0); NRBC Abs Auto 0.000 X10*3/uL (0.0-0.012); NRBC Pct Auto 0.0 /100WBC (0.0-0.2); Platelet Count 309 X10*3/uL (160-400); Red Blood Count 2.88 X10*6/uL (4.20-5.50); White Blood Count 4.2 X10*3/uL (4.8-10.8)
[2025-07-13 06:47] LABS: Anion Gap 11 (12-20); Blood Urea Nitrogen 27 mg/dL (9-16); Calcium 8.8 mg/dL (8.4-10.2); Carbon Dioxide 26 mmol/L (22-29); Chloride 110 mmol/L (96-108); Estimated Glomerular Filt Rate > 60; Potassium 4.2 mmol/L (3.3-5.1); Sodium 143 mmol/L (135-145)
== END 2025-07-13 05:47 | disposition home or self-care (01) ==
LOC: HO.MMNH2L 05:46
PROVIDERS: Visit Provider Physician Assistant Medical
DX: S72.001A Fracture of unspecified part of neck of right femur, initial encounter for closed fracture (principal)
CPT/HCPCS: 36415; 80048; 85025